=== PATIENT | male | born 1960 | race Caucasian/White ===

== ENCOUNTER → 2020-07-07 10:30 | Outpatient (CLI) | payer OTHER, SELFPAY ==
--- NOTE | 2020-07-07 10:33 | XR_ITS ---
PROCEDURE: XR FOOT RT MIN 3V CLINICAL INDICATION: RT FOOT PAIN COMPARISON: No exams were available for comparison FINDINGS: Metatarsus varus. Osteoarthritic changes at the 1st metatarsophalangeal joint. There is an old ununited fracture involving the distal shaft of the 4th metatarsal with 3 mm medial displacement of the distal fracture fragment. Osteoarthritic changes are present at the talonavicular and navicular cuneiform joint. Osteoarthritic changes also at the ankle. IMPRESSION: Osteoarthritic changes. 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
== END ==
PROVIDERS: PCP Family Medicine; Visit Provider Family Medicine
DX: M79.671 Pain in right foot (principal)
CPT/HCPCS: 73630

== ENCOUNTER → 2020-09-23 10:36 | Outpatient (CLI) | payer OTHER, SELFPAY ==
--- NOTE | 2020-09-23 10:40 | XR_ITS ---
PROCEDURE: XR FOOT WT BEARING RT 3V CLINICAL INDICATION: fracture of right fourth met follow up COMPARISON: CR XR FOOT RT MIN 3V from 07/07/2020 FINDINGS: Healing fractures present involving the distal shaft of the 4th metatarsal. Callus formation is developing at that site. There is minimal medial displacement of the distal fracture fragment by proximally 3 mm. There is an old 5th metatarsal fracture is well. There is mild metatarsus varus with osteoarthritic change at the 1st MTP joint, degenerative changes of the midfoot as before and at the ankle as before. There is mild pes planus. Osteoarthritic changes are present at the talonavicular and navicular cuneiform joint. IMPRESSION: Healing 4th metatarsal fracture with old 5th metatarsal fracture and degenerative changes Dictated by: Noe Flood MD 09/23/2020 11:33 Noe Flood MD in [facility] 09/23/2020 11:33
== END ==
PROVIDERS: PCP Family Medicine; Visit Provider Podiatrist
DX: S92.341A Displaced fracture of fourth metatarsal bone, right foot, initial encounter for closed fracture (principal)
CPT/HCPCS: 73630

== ENCOUNTER → 2020-10-21 09:34 | Outpatient (CLI) | payer OTHER, SELFPAY ==
--- NOTE | 2020-10-21 09:37 | XR_ITS ---
PROCEDURE: XR FOOT WT BEARING RT 3V CLINICAL INDICATION: Fracture follow up COMPARISON: CR XR FOOT RT MIN 3V from 07/07/2020 CR XR FOOT WT BEARING RT 3V from 09/23/2020 FINDINGS: There are healing fractures involving the 5th metatarsal proximally and the 4th metatarsal distally. Increasing callus formation noted since the previous exam. There is good alignment with only minimal lateral displacement of the distal fracture fragment at the 5th metatarsal. Osteoarthritic changes are present at the 1st MTP joint and tarsal bones as well as at the ankle joint with borderline pes planus. Other findings:None. IMPRESSION: Healing 4th and 5th metatarsal fractures with osteoarthritis of the foot Dictated by: Noe Flood MD 10/21/2020 13:03 Noe Flood MD in [facility] 10/21/2020 13:03
== END ==
PROVIDERS: PCP Family Medicine; Visit Provider Podiatrist
DX: S92.341K Displaced fracture of fourth metatarsal bone, right foot, subsequent encounter for fracture with nonunion (principal); S92.354A Nondisplaced fracture of fifth metatarsal bone, right foot, initial encounter for closed fracture
CPT/HCPCS: 73630

== ENCOUNTER → 2020-12-04 10:02 | Outpatient (CLI) | payer OTHER, SELFPAY ==
--- NOTE | 2020-12-04 10:08 | XR_ITS ---
PROCEDURE: XR FOOT WT BEARING RT 3V CLINICAL INDICATION: fracture follow up COMPARISON: CR XR FOOT RT MIN 3V from 07/07/2020 CR XR FOOT WT BEARING RT 3V from 09/23/2020 CR XR FOOT WT BEARING RT 3V from 10/21/2020 FINDINGS: Healing fractures are present involving the distal shaft of the 4th metatarsal and proximal shaft of the 5th metatarsal. There is mild lateral displacement the 5th metatarsal fracture distal fragment not significantly changed. Osteoarthritic changes are present at the 1st MTP joint, ankle, tail 0 navicular joint and navicular cuneiform joint. The fracture line at the 4th metatarsal appears somewhat less visible. IMPRESSION: Healing fractures of the 4th and 5th metatarsals as described above with osteoarthritic changes Dictated by: Noe Flood MD 12/04/2020 11:33 Noe Flood MD in [facility] 12/04/2020 11:33
== END ==
PROVIDERS: PCP Family Medicine; Visit Provider Podiatrist
DX: S92.354G Nondisplaced fracture of fifth metatarsal bone, right foot, subsequent encounter for fracture with delayed healing (principal); T14.8XXA Other injury of unspecified body region, initial encounter
CPT/HCPCS: 73630

== ENCOUNTER 2022-05-04 17:53 | Emergency (ER) | payer OTHER, SELFPAY ==
[2022-05-04] VITALS (8 sets, daily range): BP systolic 122–144; BP diastolic 84–92; PULSE 107–118; RESP 18–20; TEMP 36.6–37.2; O2SAT 94–99; BMI 28.7
--- NOTE | 2022-05-04 18:10 | CT_ITS ---
PROCEDURE INFORMATION: Exam: CT Abdomen And Pelvis With Contrast Exam date and time: 05/04/2022 8:17 PM Age: 61 years old Clinical indication: Nausea and vomiting and other: Diarrhea; Additional info: Concern for pyelo TECHNIQUE: Imaging protocol: Computed tomography of the abdomen and pelvis with contrast. Radiation optimization: All CT scans at this facility use at least one of these dose optimization techniques: automated exposure control; mA and/or kV adjustment per patient size (includes targeted exams where dose is matched to clinical indication); or iterative reconstruction. Contrast material: ISOVUE; Contrast volume: 75 ml; Contrast route: IV; COMPARISON: CR XR CHEST PORTABLE 05/04/2022 6:36 PM FINDINGS: Lungs: 1.3 cm circumscribed nodule right lung base with small central calcification favoring benign etiology. Liver: Normal. No mass. Gallbladder and bile ducts: Normal. No calcified stones. No ductal dilation. Pancreas: Unremarkable. Main pancreatic duct is not significantly dilated. Spleen: Normal. No splenomegaly. Adrenal glands: Normal. No mass. Kidneys and ureters: 3 cm exophytic cortical cyst midpole right kidney benign otherwise kidneys are unremarkable. No hydronephrosis or compelling evidence of pyelonephritis. Stomach and bowel: There is a moderate amount of stool throughout the large bowel likely reflecting some degree of constipation. Appendix: No evidence of acute appendicitis. Intraperitoneal space: Unremarkable. No free air. No significant fluid collection. Vasculature: Scattered atherosclerotic changes of the abdominal aorta and iliac vessels. No aortic aneurysm. Lymph nodes: Scattered small retroperitoneal and pelvic lymph nodes likely benign by size criteria. Urinary bladder: Unremarkable as visualized. Reproductive: Prostate gland is mildly enlarged. Bones/joints: Scattered degenerative changes of the lower thoracic and lumbar spine. No acute bony abnormalities. Soft tissues: Small fat containing umbilical hernia. IMPRESSION: 1. No acute findings within the abdomen or pelvis. 2. No compelling evidence of acute pyelonephritis. 3. Probable constipation. 4. 1.3 cm pulmonary nodule right lung base with a small central calcification favoring benign etiology. Recommend a follow-up CT chest in 3 months for continued surveillance. 5. Additional nonemergent findings as above.
--- NOTE | 2022-05-04 18:10 | XR_ITS ---
PROCEDURE INFORMATION: Exam: XR Chest Exam date and time: 05/04/2022 6:36 PM Age: 61 years old Clinical indication: Other: Abdominal pain TECHNIQUE: Imaging protocol: Radiologic exam of the chest. Views: 1 view. COMPARISON: CR CXR1VP XR chest portable 11/29/2017 10:27 PM FINDINGS: Lungs: Lung volumes are somewhat decreased which may be due to body habitus. No infiltrates. Pleural spaces: Unremarkable. No pleural effusion. No pneumothorax. Heart/Mediastinum: Unremarkable. No cardiomegaly. Bones/joints: Unremarkable. IMPRESSION: Decreased lung volumes otherwise negative chest.
[2022-05-04 18:20] LABS: Microscopic, Urine URINE MICROSCOPIC (MICROSCOPIC)
--- NOTE | 2022-05-04 18:22 | HMH.EDGENADL ---
Discharge Plan Disposition Patient Disposition: Home, Self-Care Prescriptions Prescriptions: No Action mupirocin 2 % ointment 1 applic TOPICAL TID Qty: 22 1RF metformin 500 mg tablet 500 mg PO lisinopril 5 mg tablet 5 mg PO Label Comments: TAKE 1 TABLET BY MOUTH ONCE DAILY amlodipine 5 mg tablet 5 mg PO Label Comments: TAKE 1 TABLET BY MOUTH ONCE DAILY lovastatin 20 mg tablet 20 mg PO ertugliflozin 5 mg tablet 5 mg PO Label Comments: TAKE 1 TABLET BY MOUTH ONCE DAILY IN THE MORNING ciclopirox 0.77 % cream 1 applic TOPICAL BID 30 Days Qty: 90 3RF glimepiride 4 tablet 4 mg PO DAILY allopurinol 300 tablet 300 mg PO DAILY dapagliflozin 10 tablet 10 mg PO DAILY colchicine 0.6 capsule 0.6 mg PO DAILY Referrals Follow up/Referrals: Willy Grissom MD [Primary Care Provider] - See instructions Clinical Impressions Clinical Impression: Abdominal pain Instructions Patient Instructions: DI for Nausea -- Adult Discharge ED Provider: Randal Abdul General Adult HPI <Randal Abdul MD - Last Filed: 05/04/22 20:03> General Chief complaint: Nausea/Vomiting/Diarrhea Stated complaint: Kidney pain stomach Time Seen by Provider: 05/04/22 18:15 Mode of Arrival: Ambulatory Source of Information: Patient and Spouse Limitations: No Limitations Description of Symptoms (Recalled from ER Triage Doc. by RN): pt to ed c/o mid abd pain and vomiting that started today. pt denies urinary symptoms or back pain. History of Present Illness HPI narrative: Patient is a 61-year-old male who has a past medical history of diabetes, renal failure who presents with concern for kidney issues . He says that today he started to get abdominal pain that he locates mainly around his umbilicus and thinks this is kidney pain because it is what it felt like previously. He says that he also feels nauseous and has been vomiting. He denies any diarrhea or constipation. Pain does not radiate from that location. Denies any back pain or flank pain. Denies any chest pain. Denies any shortness of breath. Denies any fever or chills. Related Data Home Medications Medication Instructions Recorded Confirmed allopurinol 300 mg tablet 300 mg PO DAILY gout 11/29/17 10/21/20 colchicine 0.6 mg capsule 0.6 mg PO DAILY gout 11/29/17 10/21/20 dapagliflozin 10 mg tablet 10 mg PO DAILY dm 11/29/17 10/21/20 glimepiride 4 mg tablet 4 mg PO DAILY dm 11/29/17 10/21/20 amlodipine 5 mg tablet 5 mg PO 07/29/20 10/21/20 ertugliflozin 5 mg tablet 5 mg PO 07/29/20 10/21/20 lisinopril 5 mg tablet 5 mg PO 07/29/20 10/21/20 lovastatin 20 mg tablet 20 mg PO 07/29/20 10/21/20 metformin 500 mg tablet 500 mg PO 07/29/20 10/21/20 Previous Rx's Medication Instructions Recorded ciclopirox 0.77 % topical cream 1 applic topical BID 30 days #90 08/02/20 grams mupirocin 2 % topical ointment 1 applic topical TID infection #22 09/23/20 grams Allergies Allergy/AdvReac Type Severity Reaction Status Date / Time No Known Allergies Allergy Verified 12/04/20 09:39 [facility] <Randal Abdul MD - Last Filed: 05/04/22 20:03> [facility] Disclaimer: The information contained in this section may have been updated after the patient was seen, as this information can be updated by other users. Social History Smoking Status: Never smoker alcohol intake: never current occupational status: employed Travel in the last 8 weeks: None <Randal Abdul MD - Last Filed: 05/04/22 20:03> ROS Obtained: Yes All systems reviewed & no additional complaints except as documented A 14 point review of system was obtained and otherwise negative except per HPI Physical Exam <Randal Abdul MD - Last Filed: 05/04/22 20:03> General General appearance: alert and in no apparent distress Head Head exam: atraumatic, normocephalic and normal inspection Eye Eye exam: Pr
[2022-05-04 18:44] LABS: Appearance,Urine CLEAR (Clear); Bilirubin,Urine Negative (Negative); Blood, Urine TRACE-I (Negative); Color,Urine YELLOW (Yellow); Glucose,Urine (UA) 3+ (Negative); Ketones,Urine Negative (Negative); Leukocyte Esterase,Urine Negative (Negative); Nitrate,Urine Negative (Negative); Protein,Urine TRACE (Negative); Specific Gravity, Urine 1.015 (1.005-1.030); Urobilinogen,Urine 0.2 EU/dl (0.2)
[2022-05-04 18:55] LABS: Barbiturates Screen,Urine Negative ng/ml (<200); Benzodiazepines Screen,Urine Negative ng/ml (<200)
[2022-05-04 18:56] LABS: Amphetamine/Metha Screen,Urine Negative ng/ml (<1000); Methadone Screen,Urine Negative ng/ml (<300)
[2022-05-04 18:57] LABS: Cannabinoid Screen,Urine Negative ng/ml (<50)
[2022-05-04 18:58] LABS: Cocaine Screen,Urine Negative ng/ml (<300); Opiate Screen,Urine Negative ng/ml (<300)
[2022-05-04 18:59] LABS: Phencyclidine Screen,Urine Negative ng/ml (<25)
[2022-05-04 19:00] LABS: VBG Base Excess -2.2 mmol/L (-2.4-2.3); VBG Oxygen Saturation 71.2 % (50-70); VBG PCO2 40.2 mmol/L (35-51); VBG PH 7.38 mmol/L (7.31-7.41); VBG PO2 35.6 mmol/L (28-40); VBG Total CO2 24.3 mmol/L (23-27)
[2022-05-04 19:15] LABS: Squamous Epithelial Cell,Urine Occasional #/hpf (0-5); WBC,Urine Occasional #/hpf (0-3)
[2022-05-04 19:30] LABS: Basophils # 0.1 K/mm3 (0-0.2); Basophils % 0.7 % (0.1-2.0); Eosinophils # 0.1 K/mm3 (0.0-0.4); Eosinophils % 0.7 % (0.1-12.0); Hematocrit 52.6 % (42.0-52.0); Hemoglobin 16.7 g/dL (14.1-18.0); Lymphocytes # 0.4 K/mm3 (0.7-4.5); Lymphocytes % 4.8 % (10-50); Mean Corpuscular HGB Conc 31.7 g/dL (31.8-35.4); Mean Corpuscular Hemoglobin 30.7 pg (27.0-31.2); Mean Corpuscular Volume 96.9 fl (80-94); Mean Platelet Volume 7.9 fl (7.4-10.4); Monocytes # 0.4 K/mm3 (0.1-1.0); Monocytes % 4.8 % (1.7-9.3); Neutrophils # 7.8 K/mm3 (1.8-7.8); Neutrophils % 88.9 % (37.0-80.0); Platelet Count 275 K/mm3 (142-424); Red Blood Count 5.43 M/mm3 (4.60-6.20); Red Cell Distribution Width 14.2 % (11.5-17.5); White Blood Count 8.7 K/mm3 (4.8-10.8)
[2022-05-04 19:37] LABS: MANUAL DIFFERENTIAL MANUAL DIFFERENTIAL (MANUAL DIFF)
[2022-05-04 19:43] LABS: Chloride 102 mmol/L (98-107); Potassium 4.7 mmoL/L (3.5-5.1); Sodium 142 mmol/L (136-145)
[2022-05-04 19:46] LABS: Alanine Aminotransferase 23 U/L (12-78); Albumin Level 4.8 g/dl (3.5-5.0); Albumin/Globulin Ratio 1.5 (1.1-1.8); Alkaline Phosphatase 138 U/L (38-126); Anion Gap 15.7 mEq/L (5-15); Aspartate Amino Transferase 33 U/L (17-59); Bilirubin,Total 0.7 mg/dl (0.2-1.3); Blood Urea Nitrogen 14 mg/dl (9-20); Calcium 9.3 mg/dl (8.4-10.2); Carbon Dioxide 29 mmol/L (22.0-30.0); Creatinine Clearance Estimated 85 mL/min (50-200); Estimated Glomerular Filt Rate 62 ml/min (>60); GFR (African American) 75 ML/MIN (>60); Globulin 3.3 g/dL (1.3-3.2); Glucose 150 mg/dl (74-100); Lipase 66 U/L (23-300); Total Protein,Serum 8.1 g/dl (6.3-8.2)
[2022-05-04 19:52] LABS: C-Reactive Protein 15.3 mg/L (0-4)
--- NOTE | 2022-05-04 19:54 | PC.NURSE ---
Radiology notified that labs results are back and MD waiting on CT scan to be completed.
[2022-05-04 20:00] LABS: Ethyl Alcohol < 10 mg/dl (0-10)
[2022-05-04 20:02] LABS: Erythrocyte Sedimentation Rate 6 mm/hr (0-20)
--- NOTE | 2022-05-04 20:08 | PC.NURSE ---
pt out of room to CT @ this time.
--- NOTE | 2022-05-04 20:15 | PC.NURSE ---
Maurisio with radiology called to ask for a nurse to assess patients IV prior to ct scan. Patient was c/o iv site pain with saline flush. I flushed the patients IV twice and was able to get adequate blood return and the IV flushed with no resistance or immediate sign of infiltration. I asked the patient where the iv was hurting but he wasnt able to tell me exactly where it was hurting .
--- NOTE | 2022-05-04 20:25 | PC.NURSE ---
pt back to room @ this time.
[2022-05-04 20:49] LABS: Lymphocytes % 10 % (10-50); Monocytes % 5 % (2-9); Neutrophils % 85 % (42-76); Platelet Estimate Normal; RBC Morphology Normal; Total Cells Counted 100
== END 2022-05-04 21:30 | disposition home or self-care (01) ==
PROVIDERS: Emergency Provider Student in an Organized Health Care Education/Training Program; PCP Family Medicine
DX: R10.9 Unspecified abdominal pain (principal); R11.2 Nausea with vomiting, unspecified; R19.7 Diarrhea, unspecified; E11.9 Type 2 diabetes mellitus without complications; N19 Unspecified kidney failure
CPT/HCPCS: 71045; 74177; 80053; 80305; 81001; 82803; 83690; 84145; 85007; 85025; 85651; 86140; J2405; Q9967

== ENCOUNTER 2022-05-06 18:34 | Inpatient (IN) | payer OTHER, SELFPAY ==
[2022-05-06] VITALS (8 sets, daily range): BP systolic 92–109; BP diastolic 46–67; PULSE 76–99; RESP 14–20; TEMP 36.6–36.7; O2SAT 92–100; BMI 28.7
--- NOTE | 2022-05-06 18:46 | XR_ITS ---
PROCEDURE INFORMATION: Exam: XR Chest Exam date and time: 05/06/2022 7:14 PM Age: 61 years old Clinical indication: Patient HX: Patient was seen her in er 2 days ago and had a chest x-ray and cat scan of abdomen. He was here for cough, nausea, vomiting, and diarrhea. Today he is having epigastric pain. TECHNIQUE: Imaging protocol: Radiologic exam of the chest. Views: 1 view. COMPARISON: CR XR CHEST PORTABLE 05/04/2022 6:36 PM FINDINGS: Lungs: Low lung volumes. Pulmonary vasculature grossly normal. Mild bandlike alveolar opacities in the lung bases probably atelectasis secondary to low lung volumes. Patchy basilar infiltrates or edema considered less likely. Pleural spaces: No pleural effusion. No pneumothorax. Heart/Mediastinum: Heart size normal. No tracheal/mediastinal shift. Bones/joints: No acute osseous abnormalities are identified. IMPRESSION: Low lung volumes with mild bandlike basilar densities likely representing subsegmental atelectasis. Patchy basilar edema or pneumonia considered less likely.
--- NOTE | 2022-05-06 18:58 | PC.NURSE ---
did US at [facility]
--- NOTE | 2022-05-06 19:16 | ECG_ITS ---
APPROVED REPORT Exam: Resting ECG HR:93 bpm ECG Measurements Heart Rate 93 AXES CO 160 P 23 QRSd 105 QRS -11 QT 332 T -21 QTc 383 Conclusion SINUS RHYTHM WITH MARKED SINUS ARRHYTHMIA Septal ST elevation is more pronounced than in 2018 - clinical correlation needed - may represent ischemic changes UNCONFIRMED REPORT Electronically signed by : Harsh Doss MD 05/07/2022 10:05:56
--- NOTE | 2022-05-06 19:26 | HMH.EDGENADL ---
Discharge Plan Disposition Patient Disposition: Still a Patient Chief Complaint: Nausea/Vomiting/Diarrhea Prescriptions Prescriptions: No Action mupirocin 2 % ointment 1 applic TOPICAL TID Qty: 22 1RF metformin 500 mg tablet 500 mg PO lisinopril 5 mg tablet 5 mg PO Label Comments: TAKE 1 TABLET BY MOUTH ONCE DAILY amlodipine 5 mg tablet 5 mg PO Label Comments: TAKE 1 TABLET BY MOUTH ONCE DAILY lovastatin 20 mg tablet 20 mg PO ertugliflozin 5 mg tablet 5 mg PO Label Comments: TAKE 1 TABLET BY MOUTH ONCE DAILY IN THE MORNING ciclopirox 0.77 % cream 1 applic TOPICAL BID 30 Days Qty: 90 3RF glimepiride 4 tablet 4 mg PO DAILY allopurinol 300 tablet 300 mg PO DAILY dapagliflozin 10 tablet 10 mg PO DAILY colchicine 0.6 capsule 0.6 mg PO DAILY Clinical Impressions Clinical Impression: STEMI (ST elevation myocardial infarction) Discharge ED Provider: Stewart Mittal General Adult HPI General Chief complaint: Nausea/Vomiting/Diarrhea Stated complaint: dizziness Time Seen by Provider: 05/06/22 18:38 Mode of Arrival: EMS Source of Information: Patient Limitations: No Limitations Description of Symptoms (Recalled from ER Triage Doc. by RN): c/o nausea and was lightheaded, dizziness and pale after. States that he has a gallbladder issue that he is getting further evaluation on Tuesday. States he ate chili and then his symptoms started. History of Present Illness HPI narrative: This is a 61-year-old male with history of diabetes, hypertension presenting with epigastric pain. Patient states that he had epigastric burning that was moderate in intensity and associated with 1 episode of vomiting. While patient was vomiting, he felt sweaty. Vomit was nonbloody, nonbilious. Epigastric pain radiated to back. He denies neurologic deficits, fevers, chills, cough, overt chest pain, shortness of breath, weakness, fatigue, or any other concerning history. Pain self aborted and on arrival, patient complaining only of upper back pain that does not radiate and is mild in intensity. Related Data Home Medications Medication Instructions Recorded Confirmed allopurinol 300 mg tablet 300 mg PO DAILY gout 11/29/17 10/21/20 colchicine 0.6 mg capsule 0.6 mg PO DAILY gout 11/29/17 10/21/20 dapagliflozin 10 mg tablet 10 mg PO DAILY dm 11/29/17 10/21/20 glimepiride 4 mg tablet 4 mg PO DAILY dm 11/29/17 10/21/20 amlodipine 5 mg tablet 5 mg PO 07/29/20 10/21/20 ertugliflozin 5 mg tablet 5 mg PO 07/29/20 10/21/20 lisinopril 5 mg tablet 5 mg PO 07/29/20 10/21/20 lovastatin 20 mg tablet 20 mg PO 07/29/20 10/21/20 metformin 500 mg tablet 500 mg PO 07/29/20 10/21/20 Previous Rx's Medication Instructions Recorded ciclopirox 0.77 % topical cream 1 applic topical BID 30 days #90 08/02/20 grams mupirocin 2 % topical ointment 1 applic topical TID infection #22 09/23/20 grams Allergies Allergy/AdvReac Type Severity Reaction Status Date / Time No Known Allergies Allergy Verified 12/04/20 09:39 [facility] Disclaimer: The information contained in this section may have been updated after the patient was seen, as this information can be updated by other users. Social History Smoking Status: Never smoker alcohol intake: never current occupational status: employed Travel in the last 8 weeks: None ROS Obtained: Yes All systems reviewed & no additional complaints except as documented Physical Exam General General appearance: alert and in no apparent distress Head Head exam: atraumatic, normocephalic and normal inspection Eye Eye exam: Present normal appearance, PERRL and EOMI ENT ENT exam: Present normal exam, normal oropharynx, mucous membranes moist, TM's normal bilaterally and normal external ear exam Neck Neck exam: Present normal inspection, full ROM and trachea midline; Absent meningismus or lymphadenopathy Chest Chest
[2022-05-06 20:00] LABS: Basophils # 0.1 K/mm3 (0-0.2); Basophils % 0.8 % (0.1-2.0); Eosinophils % 0.2 % (0.1-12.0); Hematocrit 48.1 % (42.0-52.0); Hemoglobin 15.4 g/dL (14.1-18.0); Lymphocytes # 0.5 K/mm3 (0.7-4.5); Lymphocytes % 6.4 % (10-50); Mean Corpuscular HGB Conc 32.1 g/dL (31.8-35.4); Mean Corpuscular Volume 96.5 fl (80-94); Mean Platelet Volume 7.8 fl (7.4-10.4); Monocytes # 0.5 K/mm3 (0.1-1.0); Monocytes % 5.9 % (1.7-9.3); Neutrophils # 6.7 K/mm3 (1.8-7.8); Neutrophils % 86.7 % (37.0-80.0); Platelet Count 202 K/mm3 (142-424); Red Blood Count 4.98 M/mm3 (4.60-6.20); Red Cell Distribution Width 14.3 % (11.5-17.5); White Blood Count 7.8 K/mm3 (4.8-10.8)
[2022-05-06 20:01] LABS: Alanine Aminotransferase 14 U/L (12-78); Albumin Level 3.9 g/dl (3.5-5.0); Albumin/Globulin Ratio 1.5 (1.1-1.8); Alkaline Phosphatase 94 U/L (38-126); Anion Gap 12.9 mEq/L (5-15); Aspartate Amino Transferase 31 U/L (17-59); Bilirubin,Total 0.6 mg/dl (0.2-1.3); Blood Urea Nitrogen 22 mg/dl (9-20); Calcium 8.4 mg/dl (8.4-10.2); Carbon Dioxide 30 mmol/L (22.0-30.0); Chloride 97 mmol/L (98-107); Creatinine Clearance Estimated 60 mL/min (50-200); Estimated Glomerular Filt Rate 41 ml/min (>60); GFR (African American) 50 ML/MIN (>60); Globulin 2.6 g/dL (1.3-3.2); Glucose 147 mg/dl (74-100); Lipase 49 U/L (23-300); Potassium 4.9 mmoL/L (3.5-5.1); Sodium 135 mmol/L (136-145); Total Protein,Serum 6.5 g/dl (6.3-8.2)
--- NOTE | 2022-05-06 20:03 | ECG_ITS ---
APPROVED REPORT Exam: Resting ECG HR:90 bpm ECG Measurements Heart Rate 90 AXES WY 163 P 26 QRSd 107 QRS -16 QT 346 T -25 QTc 394 Conclusion SINUS RHYTHM WITH MARKED SINUS ARRHYTHMIA SEPTAL MYOCARDIAL INFARCTION , POSSIBLY ACUTE [40+ ms Q WAVE IN V1/V2] PROBABLE INFERIOR MYOCARDIAL INFARCTION , OF INDETERMINATE AGE [35 ms Q WAVE IN II/aVF] ACUTE WA UNCONFIRMED REPORT Electronically signed by : Harsh Doss MD 05/07/2022 10:04:25
[2022-05-06 20:05] LABS: MANUAL DIFFERENTIAL MANUAL DIFFERENTIAL (MANUAL DIFF)
--- NOTE | 2022-05-06 20:06 | IR_ITS ---
APPROVED REPORT Patient Location: [facility] [employer] Director: SHAREE Galicia RT (R) PROCEDURES Left heart catheterization Left ventriculogram Selective coronary angiogram Drug-eluting stent deployment to the proximal circumflex artery Drug-eluting stent deployment to the first obtuse marginal artery Drug-eluting stent deployment to the ostial proximal mid and distal dominant right coronary artery Drug-eluting stent deployment to the posterior descending artery INDICATION Acute inferior and lateral ST elevation myocardial infarction, Coronary artery disease Informed consent was obtained prior to the procedure. COMPLICATIONS None Estimated Blood Loss: Less than 10 ML TECHNIQUE One percent lidocaine used to anesthetize the right anterior aspect of the wrist. The right radial artery was accessed via the Seldinger technique. A 6 Yoruba sheath was placed in the right radial artery. 2.5 mg of verapamil, 800 mcg of nitroglycerin, 1mg Lidocaine and 5000 U Heparin were given through the arterial sheath. The papa catheter was also used to perform left heart catheterization, left ventriculogram and selective coronary angiogram. At the end the diagnostic angiogram therapeutic heparin was administered giving a therapeutic ACT and a guide catheter was placed in the left main artery followed by a Choice PT extra-support wire being placed on the circumflex artery. Multiple 2 mm and 2.5 mm balloons were used to open the heavily calcified obtuse marginal artery and circumflex artery. After the vessel was predilated a guide liner was required in order to put a 2.5 x 38 mm resolute Wale stent was deployed at 20 deana in the circumflex artery. An additional 2 mm x 12 mm resolute [place] stent was then placed distal to the first stent and deployed at 20 deana. An additional 2 mm x 30 mm resolute [place] stent was then placed into the first obtuse marginal artery and deployed at 15 deana the balloon was brought back and deployed at 24 deana within 3 remainder of the 2 mm stents as well as at the 2.75 mm and 2 mm junction. REBECA 0 flow was present at the beginning of the procedure with REBECA-3 flow at the end of the procedure. Following this the guide catheter was placed into the right coronary artery where a Choice PT extra-support wire was placed into the posterior descending artery. A guide liner was used for support and a 2.5 balloon was dilated up and down the right coronary artery. Following this a 2.75 x 38 mm resolute Wale stent was placed in the ostial proximal right coronary artery and deployed at 20 deana. This was noticeably undersized therefore an additional 3 mm x 38 mm resolute Wale stent was placed distal to the for stent yet still overlapping and deployed at 20 deana. The balloon was brought back and deployed at 24 deana through the ostial proximal segment as well as the connection between the 2 stents. The wire was then placed into the posterior descending artery where a 2 mm balloon was used to predilate the stenosis. Following this a 2.25 x 38 mm resolute [place] stent was placed into the posterior descending artery at 15 deana reducing the stenosis to 0%. The balloon was brought back and deployed at 24 deana in the proximal portion of the 2.25 mm stent as well as in the distal 3 mm stent. Following this the apparatus was removed. REBECA 0 flow was present in the posterior descending artery with REBECA-3 flow at the end of the procedure. REBECA I flow was present in the right coronary artery at the beginning of the procedure with REBECA-3 flow at the end of the procedure. At the end the procedure the apparatus was removed the sheath was removed and hemostasis was achieved using TR banding patient was transferred to the postop [facility]
[2022-05-06 20:16] LABS: Troponin I 1.24 ng/ml (0.00-0.034)
--- NOTE | 2022-05-06 20:18 | PC.NURSE ---
[facility]urwinder contacted and accepted pt for admit @2015
[2022-05-06 20:20] LABS: Lymphocytes % 6 % (10-50); Monocytes % 3 % (2-9); Neutrophils % 91 % (42-76); Platelet Estimate Normal; Total Cells Counted 100
[2022-05-06 20:21] LABS: Macrocytosis 1+
--- NOTE | 2022-05-06 20:21 | PC.NURSE ---
trop critical called 1.24
[2022-05-06 21:53] LABS: CATHL Activated Clotting Time 228 SEC (74-125)
[2022-05-06 21:54] LABS: CATHL Activated Clotting Time 229 SEC (74-125)
--- NOTE | 2022-05-06 22:11 | PC.NURSE ---
Pt arrived to floor via stretcher from medical laboratory technicians @ [phone].
[2022-05-07] VITALS (15 sets, daily range): BP systolic 112–136; BP diastolic 74–88; PULSE 70–100; RESP 14–20; TEMP 36.3–36.9; O2SAT 94–100; BMI 28.7; BMI 28.4
--- NOTE | 2022-05-07 | CA_ITS ---
APPROVED REPORT EXAM: Comprehensive 2D, Doppler, and color-flow Echocardiogram Curbing Stonecutter: Tia Velazquez CRT Ht: 5 ft 10 in Wt: 200lbs BSA: 2.09 BP: 106/65 mmHg Indications: Covid +, Chest Pain, Shortness of Breath, STEMI, Diabetes, Hyperlipidemia, ef on cath 15-20% 05/06/22, 5 stents 2D Dimensions LVOT 2.09 cm (M/F) 1.5-2.5 LA Volume 43.30 mL M-Mode Dimensions RVDd 3.27 cm (0.9-2.6) LA Diam 3.73 cm (1.9-4.0) LVDd 4.64 cm (3.5-5.7) Ao Diam 4.07 cm (2.0-3.7) LVDs 3.88 cm (3.5-5.7) IVSd 2.32 cm (0.6-1.1) PWd 1.25 cm (0.6-1.1) EF (Teich) 34.40% FS 16.40% EDV (Teich) 99.30 mL TAPSE 1.86 (<1.7) ESV (Teich) 65.10 mL LV Diastology E Decel Time 153.00 (160-240 msec) E/A Ratio 0.72 MED E' 4.10 (< 7 cm/sec) MED A' 8.80 cm/s E'/MED E' Ratio 20.22 (>14) LAT E' 7.70 (<10 cm/sec) LAT A' 10.00 cm/s E/LAT E' Ratio 10.77 (>14) Aortic Valve AO Peak GR. 9.50 mmHg Mitral Valve MV A Velocity 114.00 (40-130 cm/s) E/A Ratio 0.72 MV Decel. Time 153.00 (160-240 ms) Pulmonary Valve PV Peak Velocity 117.00 (50-150 cm/s) Tricuspid Valve TR P. Velocity 279.00 cm/s RAP Estimate 10.00 mmHg RVSP 41.10 mmHg Left Ventricle Left atrium is mildly enlarged, left ventricle is normal size mild concentric left ventricular hypertrophy, estimated ejection fraction 30%, there is marked hypokinesis involving the basal septum, inferior wall and posterolateral wall. Grade 1 diastolic dysfunction seen without tissue Doppler evidence of raise left atrial pressure. Right Ventricle Right atrium and right ventricle are mildly enlarged with normal contractility. Aortic Valve Aortic valve is thickened and calcified without aortic stenosis or aortic insufficiency. Mitral Valve Mitral valve is grossly normal, there is trace mitral regurgitation. Tricuspid Valve Tricuspid valve is grossly normal, there is trace tricuspid regurgitation, tricuspid regurgitation jet velocity is inadequate for calculation of the right ventricular systolic pressure. Pulmonic Valve Pulmonic valve is poorly visualized. Great Vessels Aortic root is normal size. Inferior vena cava is normal size with normal inspiratory collapse. Pericardium No significant pericardial effusion noted. Conclusion 1. Mild biatrial enlargement, normal left ventricular size, mild concentric left ventricular hypertrophy, estimated ejection fraction 30% with multiple segmental wall motion abnormalities described above, grade 1 diastolic dysfunction seen without tissue Doppler evidence of raise left atrial pressure. 2. Mildly enlarged right ventricle with normal contractility. 3. Trace mitral and tricuspid regurgitation. 4. No significant pericardial effusion noted. 5. Inferior vena cava is poorly visualized. Electronically signed by : Kenneth Haque MD 05/07/2022 12:53:45
[2022-05-07 02:18] LABS: Influenza A, PCR Not Detected (NotDetected); Influenza B, PCR Not Detected (NotDetected)
[2022-05-07 02:45] LABS: Coronavirus 19, PCR Detected (NotDetected)
--- NOTE | 2022-05-07 07:48 | HMH.PHAINT1 ---
Pharmacy Intervention Comments: MEDICATION RECONCILIATION COMPLETED ON PATIENT USING EXTERNAL FILL HISTORY FROM PHARMACY. -JUAN FRANCO, GEOFFREYD
--- NOTE | 2022-05-07 08:39 | EXP.HP ---
History of Present Illness *Admission Date: 05/06/22 *Reason for visit:: chest pain *History of present illness: This is a 61-year-old male with history of diabetes, hypertension presenting with epigastric pain.? Patient states that he had epigastric burning that was moderate in intensity and associated with 1 episode of vomiting.? While patient was vomiting, he felt sweaty.? Vomit was nonbloody, nonbilious.? Epigastric pain radiated to back.? He denies neurologic deficits, fevers, chills, cough, overt chest pain, shortness of breath, weakness, fatigue, or any other concerning history.? Pain self aborted and on arrival, patient complaining only of upper back pain that does not radiate and is mild in intensity.? On arrival, patient hemodynamically stable, alert, oriented x4, appropriate, GCS 15, moving all extremities spontaneously, pupils equal and reactive to light.? Patient pale, diaphoretic, tired appearing.? Nontender abdomen without Werner's or McBurney signs.? Cardiopulmonary exam within normal limits.? Differential includes cholelithiasis, cholecystitis, pancreatitis, ACS, AL, pneumothorax, pneumonia, gastritis, PUD, among others. Patient was given 325 mg aspirin, 180 Brilinta, 7500 units heparin bolus for symptomatic management and correction of underlying abnormalities.? Workup independently intrepreted and significant for nonactionable CBC.? CMP with CRISTEL creatinine 1.7, BUN 22.? Troponin 1.24 initially, delta pending at time of admission.? Imaging independently interpreted and demonstrates no acute cardiopulmonary or airspace disease.? Personal interpretation of EKG shows [address] elevations in lead V2 with T wave inversions in V5, V6, 3, aVF.? Does not acutely meet STEMI voltage criteria.? Repeat EKG 30 minutes later with 2 mm elevations in lead V2 with ST deviations and leads previously concerning for T wave inversions consistent with acute STEMI. On reevaluation, patient remains with burning epigastric pain and back pain, is pale and diaphoretic. Given patient presentation, workup, history, this most likely represents acute STEMI.? Cardiology consulted and case was discussed at length.? Inpatient medicine team consulted and case was discussed at length.? Patient put on cardiac medications and taken to [employer] Sales Representative emergently.? Because patient high risk for clinical decompensation, deemed appropriate for inpatient admission.? Results were relayed to patient who voiced understanding and patient was agreeable to inpatient admission and management.? Patient was admitted to the hospital for further definitive management, and remained hemodynamically stable during entire stay in the emergency department. (above as per ER physician) Also to note, patient's covid test was positive. He states he has felt poorly since Tuesday with cough, congestion, body aches, vomiting, and diarrhea. [facility] Disclaimer: The information contained in this section may have been updated after the patient was seen, as this information can be updated by other users. Medical History (Updated 05/07/22 @ 10:18 by Willy Grissom MD) Diabetes mellitus, type 2 Gout Hyperlipidemia Hypertension Surgical History (Updated 05/07/22 @ 09:26 by SUDARSHAN Hernandez) History of tonsillectomy Family History (Updated 05/07/22 @ 09:22 by SUDARSHAN Hernandez) Diabetes Coronary artery disease Hyperlipidemia Social History (Updated 05/06/22 @ 22:45 by Mena Atkinson RN) Smoking Status: Never smoker alcohol intake: never current occupational status: employed Travel in the last 8 weeks: None Review of Systems Constitutional Constitutional: Reports body ache(s), Reports chills, Denies fever(s), Reports headache(s), Reports poor appetite, Reports malaise and Reports weakness Eyes Eyes: Denies blurry vision and Denies diplopia ENT Ears, Nose, Mouth, and Throat: Reports headache(s), Reports nasal congestion and Denies sore throat *Cardiovascular Cardiovascular: Denies chest pain
--- NOTE | 2022-05-07 11:48 | EXP.CARD.CON ---
History of Present Illness History of Present Illness Consult date: 05/07/22 Requesting physician: Willy Grissom Consult reason: chest pain Chief complaint: CP, back pain, vomiting Additional Medical History:: 1. Diabetes mellitus, treated for many years 2. Hypertension, treated for many years 3. Hyperlipidemia, treated for many years 4. History of gout 5. STEMI, 05/06/2022 A. LHC, 05/06/2022, multiple MARTHA to circumflex/OM and RCA/PDA. Ischemic cardiomyopathy with ejection fraction of about 20% B. Echocardiogram 05/07/2022 EF 30% 6. COVID, 05/06/2022 History of present illness: 61-year-old male with history as noted above presented for epigastric burning sensation and vomiting. Work-up in the ER initially focused on GI symptoms but with repeat EKG patient was noted to have ST elevation of 2 mm consistent with acute STEMI. Home Health Care Social Worker was activated and patient was taken to the cardiac Home Health Care Social Worker where he received multiple drug-eluting stents to both the circumflex system and the right coronary artery system. Severely reduced ejection fraction estimated at 15-20% on left ventriculogram. Echocardiogram today shows EF 30%. Patient denies any chest pain, pressure or tightness at this time. He is resting well at the time of my exam on no oxygen. He was found to be COVID-positive yesterday. Longtime diabetic, hypertensive and hyperlipidemic patient. Denies history of tobacco use. [facility] Disclaimer: The information contained in this section may have been updated after the patient was seen, as this information can be updated by other users. Medical History (Updated 05/07/22 @ 10:18 by Willy Grissom MD) Diabetes mellitus, type 2 Gout Hyperlipidemia Hypertension Surgical History (Updated 05/07/22 @ 09:26 by SUDARSHAN Hernandez) History of tonsillectomy Family History (Updated 05/07/22 @ 09:22 by SUADRSHAN Hernandez) Diabetes Coronary artery disease Hyperlipidemia Social History (Updated 05/06/22 @ 22:45 by Mena Atkinson RN) Smoking Status: Never smoker alcohol intake: never current occupational status: employed Travel in the last 8 weeks: None Review of Systems Review of Systems Review of systems:: pertinent systems reviewed and negative unless documented below Constitutional Constitutional: Reports headache(s) and Reports weakness ENT Ears, Nose, Mouth, and Throat: Reports headache(s) *Cardiovascular Cardiovascular: Reports chest pain, Reports chest pain at rest and Reports dyspnea on exertion *Respiratory Respiratory: Reports cough and Reports dyspnea on exertion *Gastrointestinal Gastrointestinal: Reports vomiting *Neurologic Neurologic: Reports headache(s) and Reports weakness Exam Data for Last 24 hours Vital signs and Labs for Last 24 Hours: Temp Pulse Resp BP Pulse Ox 98.5 F 97 H 18 136/88 98 05/07/22 08:00 05/07/22 08:00 05/07/22 08:00 05/07/22 08:00 05/07/22 08:00 Laboratory Results - last 24 hr 05/06/22 19:32: WBC 7.8, RBC 4.98, Hgb 15.4, Hct 48.1, MCV 96.5 H, MCH 31.0, MCHC 32.1, RDW 14.3, Plt Count 202 D, MPV 7.8, Neut % (Auto) 86.7 H, Lymph % (Auto) 6.4 L, [place] % (Auto) 5.9, Eos % (Auto) 0.2, Baso % (Auto) 0.8, Neut # (Auto) 6.7, Lymph # (Auto) 0.5 L, [place] # (Auto) 0.5, Eos # (Auto) 0.0, Baso # (Auto) 0.1, Total Counted 100, Neutrophils % (Manual) 91 H, Lymphocytes % (Manual) 6 L, Monocytes % (Manual) 3, Platelet Estimate Normal, Macrocytosis 1+ 05/06/22 19:32: Sodium 135 L, Potassium 4.9, Chloride 97 L, Carbon Dioxide 30, Anion Gap 12.9, BUN 22 H D, Creatinine 1.70 H D, Estimated Creat Clear 60, Estimated GFR 41 L, Est GFR ( Amer) 50 L D, Glucose 147 H, Calcium 8.4, Total Bilirubin 0.6, AST 31, ALT 14 D, Alkaline Phosphatase 94, Troponin I 1.24 H, Total Protein 6.5, Albumin 3.9, Globulin 2.6, Albumin/Globulin Ratio 1.5, Lipase 49 05/06/22 22:04: Activated Clotting Time 228 H* 05/07/22 02:10: SARS-CoV-2 (PCR) Detected A, Influenza A Untype (PCR) Not detected, Infl
[2022-05-07 12:30] LABS: Alanine Aminotransferase 15 U/L (12-78); Albumin Level 3.6 g/dl (3.5-5.0); Albumin/Globulin Ratio 1.4 (1.1-1.8); Alkaline Phosphatase 88 U/L (38-126); Anion Gap 10.7 mEq/L (5-15); Aspartate Amino Transferase 40 U/L (17-59); Bilirubin,Total 0.5 mg/dl (0.2-1.3); Blood Urea Nitrogen 22 mg/dl (9-20); Calcium 8.4 mg/dl (8.4-10.2); Carbon Dioxide 27 mmol/L (22.0-30.0); Chloride 101 mmol/L (98-107); Chol/HDL Ratio 5.6 (1-3.5); Cholesterol 150 mg/dl (140-200); Creatinine Clearance Estimated 85 mL/min (50-200); Estimated Glomerular Filt Rate 62 ml/min (>60); GFR (African American) 75 ML/MIN (>60); Globulin 2.6 g/dL (1.3-3.2); Glucose 139 mg/dl (74-100); HDL Cholesterol 27 mg/dl (40-60); Potassium 3.7 mmoL/L (3.5-5.1); Sodium 135 mmol/L (136-145); Total Protein,Serum 6.2 g/dl (6.3-8.2); Triglycerides 171 mg/dl (30-150); VLDL Cholesterol 34 mg/dL (0-40)
[2022-05-07 12:42] LABS: Direct LDL Cholesterol 85.45 mg/dL (100-129)
--- NOTE | 2022-05-07 17:05 | PC.NURSE ---
pt has rested t/o shift, telemetry has shown NSR, no complaints of chest pain or SOA, has complained of nausea one time and was treated per JUN, remains on room air, pt bathed this shift and linens changed
[2022-05-07 17:21] LABS: POC Glucose,Bedside 149 (70-110)
[2022-05-07 20:26] LABS: POC Glucose,Bedside 289 (70-110)
[2022-05-08] VITALS: BP 132/78; PULSE 125; PULSE 72; RESP 18; TEMP 36.7; O2SAT 98
[2022-05-08 04:00] VITALS: BP 125/67; PULSE 87; PULSE 94; RESP 20; TEMP 36.9; O2SAT 94; BMI 28.3
--- NOTE | 2022-05-08 05:09 | INFXCTL.NOTE ---
PATIENT RESTING IN BED. NO COMPLAINTS OF PAIN OR DISCOMFORT. SINUS RHYTHM ON TELEMETRY. REMAINS IN AIRBORN/CONTACT PRECAUTIONS DUE TO COVID +.
[2022-05-08 05:40] LABS: POC Glucose,Bedside 86 (70-110)
[2022-05-08 08:00] VITALS: BP 128/78; PULSE 100; PULSE 95; RESP 18; TEMP 36.9; O2SAT 99
--- NOTE | 2022-05-08 10:40 | EXP.ACUTE.PN ---
Subjective *Date: 05/08/22 *Time: 10:40 Interval history: Patient with no new complaints today. Medical Exam Vital signs and Labs for Last 24 Hours: Vital Signs Temp Pulse Pulse Resp BP Pulse Ox 05/08/22 08:00 98.4 F 95 H 18 128/78 99 05/08/22 04:00 87 05/08/22 04:00 98.4 F 94 H 20 125/67 94 L 05/08/22 00:00 125 H 05/08/22 00:00 98.1 F 72 18 132/78 98 05/07/22 23:38 91 H 05/07/22 20:00 98.3 F 92 H 20 130/76 97 05/07/22 20:00 95 05/07/22 12:00 86 05/07/22 16:00 90 05/07/22 16:00 97.4 F L 91 H 20 117/84 95 05/07/22 12:33 97.5 F L 92 H 18 133/86 96 Intake and Output 05/07/22 05/08/22 05/08/22 23:59 07:59 15:59 Intake Total 240 / 720 Output Total 1025 / 3725 1000 / 1450 450 / 1450 Balance -785 / -3005 -1000 / -1450 -450 / -1450 Intake: Intake, Oral Amount 240 / 720 Output: Output, Urine Amount 1025 / 3725 1000 / 1450 450 / 1450 Other: Number of Voids 1 Number of Unmeasured Voids 0 Weight 197 lb 8.547 oz Patient Weight 05/08/22 23:59 Weight 197 lb 8.547 oz Laboratory Results - last 24 hr 05/07/22 12:00: Sodium 135 L, Potassium 3.7 D, Chloride 101, Carbon Dioxide 27, Anion Gap 10.7, BUN 22 H, Creatinine 1.20 D, Estimated Creat Clear 85, Estimated GFR 62, Est GFR ( Amer) 75 D, Glucose 139 H, Calcium 8.4, Total Bilirubin 0.5, AST 40 D, ALT 15, Alkaline Phosphatase 88, Total Protein 6.2 L, Albumin 3.6, Globulin 2.6, Albumin/Globulin Ratio 1.4, Triglycerides 171 H, Cholesterol 150, LDL Cholesterol Direct 85.45 L, VLDL Cholesterol 34, HDL Cholesterol 27 L, Cholesterol/HDL Ratio 5.6 H 05/07/22 16:44: POC Glucose 149 H 05/07/22 20:05: POC Glucose 289 H 05/08/22 05:33: POC Glucose 86 I & O for Labs for Last 24 Hours: Intake & Output 05/05/22 05/06/22 05/07/22 05/08/22 23:59 23:59 23:59 23:59 Intake Total 720 / 720 Output Total 3125 / 3725 1450 / 1450 Balance -2405 / -3005 -1450 / -1450 Weight 200 lb 198 lb 6.656 oz 197 lb 8.547 oz Constitutional: Present no acute distress Respiratory: Present normal respiratory effort Cardiac: Present Reg Rate and Rhythm GI: Present normal bowel sounds; Absent tenderness Extremities: Present normal inspection and full ROM Skin: Present intact; Absent erythema Neuro: Present Grossly Intact and moves all extremities Assessment and Plan *Assessment and plan (1) STEMI (ST elevation myocardial infarction): Status: Acute Category: Medical Code(s): I21.3 - ST elevation (STEMI) myocardial infarction of unspecified site (2) COVID-19: Status: Acute Category: Medical Code(s): U07.1 - COVID-19 (3) Acute kidney injury: Status: Acute Category: Medical Code(s): N17.9 - Acute kidney failure, unspecified (4) Abdominal pain: Status: Acute Category: Medical Code(s): R10.9 - Unspecified abdominal pain (5) Coronary artery disease: Status: Acute Category: Medical Code(s): I25.10 - Atherosclerotic heart disease of [place] coronary artery without angina pectoris (6) S/P coronary artery stent placement: Status: Acute Category: Surgical Code(s): Z95.5 - Presence of coronary angioplasty implant and graft (7) Diabetes mellitus: Status: Chronic Qualifiers: Diabetes mellitus type: type 2 Diabetes mellitus group home insulin use: without long term care administrator use Diabetes mellitus complication status: without complication Qualified Code(s): E11.9 - Type 2 diabetes mellitus without complications Category: Medical Code(s): E11.9 - Type 2 diabetes mellitus without complications (8) Hypertension: Status: Chronic Category: Medical Code(s): I10 - Essential (primary) hypertension (9) Hyperlipidemia: Status: Chronic Category: Medical Code(s): E78.5 - Hyperlipidemia, unspecified (10) Acute CHF (co
[2022-05-08 12:00] VITALS: BP 128/85; PULSE 65; PULSE 83; RESP 18; TEMP 36.9; O2SAT 97
[2022-05-08 12:54] LABS: POC Glucose,Bedside 160 (70-110)
[2022-05-08 16:00] VITALS: BP 121/86; PULSE 80; PULSE 83; RESP 20; TEMP 36.4; O2SAT 95
--- NOTE | 2022-05-08 17:35 | PC.NURSE ---
Pt has done well this shift. Pt has used urinal, urine is clear and yellow. No BM noted this shift. Pt ambulated independently. Lovenox added for VTE this shift. No other acute changes or complaints.
[2022-05-08 17:38] LABS: POC Glucose,Bedside 306 (70-110)
[2022-05-08 20:00] VITALS: BP 119/81; PULSE 80; PULSE 85; RESP 20; TEMP 36.6; O2SAT 98
[2022-05-08 20:48] LABS: POC Glucose,Bedside 137 (70-110)
[2022-05-09] VITALS (10 sets, daily range): BP systolic 105–141; BP diastolic 69–92; PULSE 69–99; RESP 17–20; TEMP 36.5–37.2; O2SAT 97–99; BMI 28.0
--- NOTE | 2022-05-09 04:48 | PC.NURSE ---
PATIENT HAS RESTED WELL. NO C/O PAIN OR SOA. PERSISTANT DRY COUGH. 02 AT 2LNC USED THROUGHOUT THE NIGHT. REMAINS IN AIRBORNE AND CONTACT ISOLATION FOR COVID.
[2022-05-09 05:39] LABS: POC Glucose,Bedside 135 (70-110)
--- NOTE | 2022-05-09 08:09 | EXP.ACUTE.PN ---
Subjective *Date: 05/09/22 *Time: 08:09 Interval history: Pt with no new complaints today, had to start supplemental oxygen yesterday. Medical Exam Vital signs and Labs for Last 24 Hours: Vital Signs Temp Pulse Pulse Resp BP Pulse Ox 05/09/22 07:30 97.7 F 92 H 18 105/78 L 99 05/09/22 04:00 97.9 F 90 20 130/85 97 05/09/22 04:00 88 05/08/22 20:00 80 05/09/22 00:00 99 H 05/08/22 20:00 98 05/09/22 00:00 98.1 F 69 20 141/88 H 99 05/08/22 20:00 97.9 F 85 20 119/81 98 05/08/22 16:00 97.6 F 83 20 121/86 95 05/08/22 16:00 80 05/08/22 12:00 83 05/08/22 12:00 98.5 F 65 18 128/85 97 Intake and Output 05/08/22 05/09/22 05/09/22 23:59 07:59 15:59 Intake Total 480 / 1320 300 / 300 Output Total 850 / 2925 500 / 500 Balance -370 / -1605 -200 / -200 Intake: Intake, Oral Amount 480 / 1320 300 / 300 Output: Output, Urine Amount 850 / 2925 500 / 500 Other: Number of Unmeasured Voids 0 0 Weight 195 lb 15.855 oz Patient Weight 05/09/22 23:59 Weight 195 lb 15.855 oz Laboratory Results - last 24 hr 05/08/22 12:45: POC Glucose 160 H 05/08/22 16:04: POC Glucose 306 H* 05/08/22 20:41: POC Glucose 137 H 05/09/22 05:31: POC Glucose 135 H I & O for Labs for Last 24 Hours: Intake & Output 05/06/22 05/07/22 05/08/22 05/09/22 23:59 23:59 23:59 23:59 Intake Total 720 / 720 1200 / 1320 300 / 300 Output Total 3125 / 3725 2925 / 2925 500 / 500 Balance -2405 / -3005 -1725 / -1605 -200 / -200 Weight 200 lb 198 lb 6.656 oz 197 lb 8.547 oz 195 lb 15.855 oz Constitutional: Present no acute distress Respiratory: Present normal respiratory effort Cardiac: Present Reg Rate and Rhythm GI: Present normal bowel sounds; Absent tenderness Extremities: Present normal inspection and full ROM Skin: Present intact; Absent erythema Neuro: Present Grossly Intact and moves all extremities Assessment and Plan *Assessment and plan (1) STEMI (ST elevation myocardial infarction): Status: Acute Category: Medical Code(s): I21.3 - ST elevation (STEMI) myocardial infarction of unspecified site (2) COVID-19: Status: Acute Category: Medical Code(s): U07.1 - COVID-19 (3) Acute kidney injury: Status: Acute Category: Medical Code(s): N17.9 - Acute kidney failure, unspecified (4) Abdominal pain: Status: Acute Category: Medical Code(s): R10.9 - Unspecified abdominal pain (5) Coronary artery disease: Status: Acute Category: Medical Code(s): I25.10 - Atherosclerotic heart disease of [place] coronary artery without angina pectoris (6) S/P coronary artery stent placement: Status: Acute Category: Surgical Code(s): Z95.5 - Presence of coronary angioplasty implant and graft (7) Diabetes mellitus: Status: Chronic Qualifiers: Diabetes mellitus type: type 2 Diabetes mellitus [facility] insulin use: without salvage determiner use Diabetes mellitus complication status: without complication Qualified Code(s): E11.9 - Type 2 diabetes mellitus without complications Category: Medical Code(s): E11.9 - Type 2 diabetes mellitus without complications (8) Hypertension: Status: Chronic Category: Medical Code(s): I10 - Essential (primary) hypertension (9) Hyperlipidemia: Status: Chronic Category: Medical Code(s): E78.5 - Hyperlipidemia, unspecified (10) Acute CHF (congestive heart failure): Status: Acute Category: Medical Code(s): I50.9 - Heart failure, unspecified Plan Plan to wean supplemental oxygen down today, recheck labs tomorrow. Life vest is in his room now.
[2022-05-09 11:40] LABS: POC Glucose,Bedside 179 (70-110)
[2022-05-09 16:52] LABS: POC Glucose,Bedside 157 (70-110)
--- NOTE | 2022-05-09 18:02 | PC.NURSE ---
No acute changes. Oxygen weaned to room air, VS stable. Lung sounds clear.
[2022-05-09 20:10] LABS: POC Glucose,Bedside 244 (70-110)
[2022-05-10] VITALS: BP 139/87; PULSE 90; PULSE 93; RESP 18; TEMP 36.9; O2SAT 97
[2022-05-10 04:00] VITALS: BP 121/86; PULSE 80; PULSE 94; RESP 18; TEMP 36.5; O2SAT 96; BMI 28.2
[2022-05-10 05:31] LABS: POC Glucose,Bedside 107 (70-110)
--- NOTE | 2022-05-10 06:37 | PC.NURSE ---
NO ACUTE CHANGES. REMAINS ON ROOM AIR. VSS. REMAINS AFEBRILE. LUNGS CLEAR.
[2022-05-10 06:49] LABS: Basophils % 0.3 % (0.1-2.0); Eosinophils # 0.2 K/mm3 (0.0-0.4); Eosinophils % 2.5 % (0.1-12.0); Lymphocytes # 1.3 K/mm3 (0.7-4.5); Lymphocytes % 17.7 % (10-50); Mean Corpuscular HGB Conc 33.4 g/dL (31.8-35.4); Mean Corpuscular Hemoglobin 31.1 pg (27.0-31.2); Mean Corpuscular Volume 92.9 fl (80-94); Mean Platelet Volume 7.8 fl (7.4-10.4); Monocytes # 0.4 K/mm3 (0.1-1.0); Monocytes % 5.3 % (1.7-9.3); Neutrophils # 5.4 K/mm3 (1.8-7.8); Neutrophils % 74.1 % (37.0-80.0); Platelet Count 243 K/mm3 (142-424); Red Blood Count 4.84 M/mm3 (4.60-6.20); Red Cell Distribution Width 13.7 % (11.5-17.5); White Blood Count 7.2 K/mm3 (4.8-10.8)
[2022-05-10 07:17] LABS: Anion Gap 12.9 mEq/L (5-15); Blood Urea Nitrogen 27 mg/dl (9-20); Calcium 8.3 mg/dl (8.4-10.2); Carbon Dioxide 26 mmol/L (22.0-30.0); Chloride 103 mmol/L (98-107); Creatinine Clearance Estimated 84 mL/min (50-200); Estimated Glomerular Filt Rate 62 ml/min (>60); GFR (African American) 75 ML/MIN (>60); Glucose 96 mg/dl (74-100); Potassium 3.9 mmoL/L (3.5-5.1); Sodium 138 mmol/L (136-145)
[2022-05-10 07:29] VITALS: BP 140/72; PULSE 90; RESP 18; TEMP 37.4; O2SAT 100
[2022-05-10 08:00] VITALS: PULSE 97
--- NOTE | 2022-05-10 08:14 | EXP.PN ---
Subjective *Date: 05/10/22 *Time: 09:06 Interval history: Patient is concerned about his left hand. States the machinist instructor is not as good. He has continuous O2 sat monitor on the middle finger and a dressing around the hand. He states he continues to cough and is short of breath. He states he has not been out of bed but then states he sat in a chair. He states bowels have not moved. He is voiding QS. Exam Data for Last 24 hours Vital signs and Labs for Last 24 Hours: Temp Pulse Resp BP Pulse Ox 99.4 F 90 18 140/72 100 05/10/22 07:29 05/10/22 07:29 05/10/22 07:29 05/10/22 07:29 05/10/22 07:29 Laboratory Results - last 24 hr 05/09/22 11:32: POC Glucose 179 H 05/09/22 16:41: POC Glucose 157 H 05/09/22 20:03: POC Glucose 244 H 05/10/22 05:24: POC Glucose 107 05/10/22 06:33: WBC 7.2, RBC 4.84, Hgb 15.0, Hct 45.0, MCV 92.9, MCH 31.1, MCHC 33.4, RDW 13.7, Plt Count 243, MPV 7.8, Neut % (Auto) 74.1, Lymph % (Auto) 17.7, [place] % (Auto) 5.3, Eos % (Auto) 2.5, Baso % (Auto) 0.3, Neut # (Auto) 5.4, Lymph # (Auto) 1.3, [place] # (Auto) 0.4, Eos # (Auto) 0.2, Baso # (Auto) 0.0 05/10/22 06:33: Sodium 138, Potassium 3.9, Chloride 103, Carbon Dioxide 26, Anion Gap 12.9, BUN 27 H, Creatinine 1.20, Estimated Creat Clear 84, Estimated GFR 62, Est GFR ( Amer) 75, Glucose 96, Calcium 8.3 L I & O for Last 24 hours: Intake & Output 05/07/22 05/08/22 05/09/22 05/10/22 11:59 11:59 11:59 11:59 Intake Total 240 / 240 960 / 960 1020 / 1020 900 / 900 Output Total 1325 / 1325 3250 / 3250 2425 / 2425 2150 / 2150 Balance -1085 / -1085 -2290 / -2290 -1405 / -1405 -1250 / -1250 Weight 198 lb 6.656 oz 197 lb 8.547 oz 195 lb 15.855 oz 197 lb 1 oz Constitutional Constitutional: no acute distress Comments: Appears comfortable. *Routine Respiratory Exam Respiratory: Present CTA bilaterally (Anteriorly and posteriorly) *Routine Cardiovascular Exam Cardiovascular: Present RRR (Monitor showing sinus rhythm with a rate of 100.) *Routine Abdominal Exam Abdominal: Present soft and normoactive bowel sounds; Absent tenderness or distended *Routine Extremities Exam Extremities: Absent edema or calf tenderness Comments: Good movement of all extremities. Satisfactory grasp of the left hand. Moves all fingers without difficulty. Head to touch with the left hand normal. Normal radial pulse. No hand edema. *Routine Neurological Exam Neurological: Present alert Assessment and Plan *Assessment and plan (1) STEMI (ST elevation myocardial infarction): Status: Acute Category: Medical Code(s): I21.3 - ST elevation (STEMI) myocardial infarction of unspecified site (2) COVID-19: Status: Acute Category: Medical Code(s): U07.1 - COVID-19 (3) Acute kidney injury: Status: Acute Category: Medical Code(s): N17.9 - Acute kidney failure, unspecified (4) Abdominal pain: Status: Acute Category: Medical Code(s): R10.9 - Unspecified abdominal pain (5) Coronary artery disease: Status: Acute Category: Medical Code(s): I25.10 - Atherosclerotic heart disease of [place] coronary artery without angina pectoris (6) S/P coronary artery stent placement: Status: Acute Category: Surgical Code(s): Z95.5 - Presence of coronary angioplasty implant and graft (7) Diabetes mellitus: Status: Chronic Qualifiers: Diabetes mellitus complication status: without complication Diabetes mellitus shelter insulin use: without adjunct faculty for medical terminology use Diabetes mellitus type: type 2 Qualified Code(s): E11.9 - Type 2 diabetes mellitus without complications Category: Medical Code(s): E11.9 - Type 2 diabetes mellitus without complications (8) Hypertension: Status: Chronic Category: Medical Code(s): I10 - Essential (primary) hypertension (9) Hyperlipidemia: Status: Chronic Category: Medical Code(s): E78.5 - Hy
--- NOTE | 2022-05-10 09:33 | CARE MANAGER ---
Acute Coronary Syndrome (ACS) Episode Day 1, One: 2MN Trans CRITICAL, One: STEMI
--- NOTE | 2022-05-10 10:47 | EXP.CARD.PN ---
Subjective Subjective Date: 05/10/22 Time: 10:47 Principal diagnosis: STEMI Interval history: 61-year-old white male in bed in no acute distress. He is ready to go home LifeVest is in the room. Exam Data for Last 24 hours Vital signs and Labs for Last 24 Hours: Temp Pulse Resp BP Pulse Ox 99.4 F 97 H 18 140/72 100 05/10/22 07:29 05/10/22 08:00 05/10/22 07:29 05/10/22 07:29 05/10/22 07:29 Laboratory Results - last 24 hr 05/09/22 11:32: POC Glucose 179 H 05/09/22 16:41: POC Glucose 157 H 05/09/22 20:03: POC Glucose 244 H 05/10/22 05:24: POC Glucose 107 05/10/22 06:33: WBC 7.2, RBC 4.84, Hgb 15.0, Hct 45.0, MCV 92.9, MCH 31.1, MCHC 33.4, RDW 13.7, Plt Count 243, MPV 7.8, Neut % (Auto) 74.1, Lymph % (Auto) 17.7, [place] % (Auto) 5.3, Eos % (Auto) 2.5, Baso % (Auto) 0.3, Neut # (Auto) 5.4, Lymph # (Auto) 1.3, [place] # (Auto) 0.4, Eos # (Auto) 0.2, Baso # (Auto) 0.0 05/10/22 06:33: Sodium 138, Potassium 3.9, Chloride 103, Carbon Dioxide 26, Anion Gap 12.9, BUN 27 H, Creatinine 1.20, Estimated Creat Clear 84, Estimated GFR 62, Est GFR ( Amer) 75, Glucose 96, Calcium 8.3 L I & O for Last 24 hours: Intake & Output 05/07/22 05/08/22 05/09/22 05/10/22 11:59 11:59 11:59 11:59 Intake Total 240 / 240 960 / 960 1020 / 1020 900 / 900 Output Total 1325 / 1525 3250 / 3875 2425 / 2425 2150 / 2150 Balance -1085 / -1285 -2290 / -2915 -1405 / -1405 -1250 / -1250 Weight 198 lb 6.656 oz 197 lb 8.547 oz 195 lb 15.855 oz 197 lb 1 oz Constitutional Constitutional: no acute distress *Routine Respiratory Exam Respiratory: Present CTA bilaterally *Routine Cardiovascular Exam Cardiovascular: Present RRR *Routine Extremities Exam Extremities: Absent cyanosis, clubbing or edema *Routine Neurological Exam Neurological: Present alert and oriented X3 Progress Note: A&P Assessment and plan (1) STEMI (ST elevation myocardial infarction): Status: Acute (2) COVID-19: Status: Acute (3) Acute kidney injury: Status: Acute (4) Abdominal pain: Status: Acute (5) Coronary artery disease: Status: Acute (6) S/P coronary artery stent placement: Status: Acute (7) Diabetes mellitus: Status: Chronic (8) Hypertension: Status: Chronic (9) Hyperlipidemia: Status: Chronic (10) Acute CHF (congestive heart failure): Status: Acute Assessment and Plan Assessment and Plan for All Diagnoses:: 1.? Acute STEMI -Multiple MARTHA to circumflex and RCA arteries -DAPT with aspirin and Brilinta 2.? Ischemic cardiomyopathy with echo EF 30% -LifeVest in place -Entresto and coreg started 3.? COVID, defer to Dr. Grissom 4.? Hypertension, controlled 5.? Hyperlipidemia, -Atorvastatin started Stable from cardiac standpoint for discharge home. Follow-up in our office in 1 week. Encouraged the LifeVest use is much as possible. Home medication recommendations from cardiac standpoint: Aspirin 81 mg daily Atorvastatin 40 mg daily Ticagrelor 90 mg twice daily Entresto 24/ twice daily Carvedilol 3.125 mg twice daily
[2022-05-10 10:53] LABS: POC Glucose,Bedside 135 (70-110)
[2022-05-10 10:59] VITALS: BP 127/80; PULSE 93; RESP 19; TEMP 36.5; O2SAT 96
[2022-05-10 12:00] VITALS: PULSE 95
--- NOTE | 2022-05-10 14:42 | HMH.PHACL ---
PHA Director Medicaid Discharge Med Setter Off: Sunday Talbot has received discharge medication counseling on the following medications: aspirin, Brilinta, carvedilol, Entresto, and lovastatin as well as continued home medications. Overviewed indications, possible adverse effects, and mitigation strategies for each. Instructed patient to STOP lisinopril. Patient verbalized understanding of the information provided and had no questions or concerns at this time. -Peggy Anderson, PharmD Candidate 2022
--- NOTE | 2022-05-12 08:49 | EXP.DC.SUM ---
General Admission date:: 05/06/22 Discharge date: 05/10/22 HPI HPI HPI: This is a 61-year-old male with history of diabetes, hypertension presenting with epigastric pain.? Patient states that he had epigastric burning that was moderate in intensity and associated with 1 episode of vomiting.? While patient was vomiting, he felt sweaty.? Vomit was nonbloody, nonbilious.? Epigastric pain radiated to back.? He denies neurologic deficits, fevers, chills, cough, overt chest pain, shortness of breath, weakness, fatigue, or any other concerning history.? Pain self aborted and on arrival, patient complaining only of upper back pain that does not radiate and is mild in intensity.? On arrival, patient hemodynamically stable, alert, oriented x4, appropriate, GCS 15, moving all extremities spontaneously, pupils equal and reactive to light.? Patient pale, diaphoretic, tired appearing.? Nontender abdomen without Werner's or McBurney signs.? Cardiopulmonary exam within normal limits.? Differential includes cholelithiasis, cholecystitis, pancreatitis, ACS, SC, pneumothorax, pneumonia, gastritis, PUD, among others. Patient was given 325 mg aspirin, 180 Brilinta, 7500 units heparin bolus for symptomatic management and correction of underlying abnormalities.? Workup independently intrepreted and significant for nonactionable CBC.? CMP with CRISTEL creatinine 1.7, BUN 22.? Troponin 1.24 initially, delta pending at time of admission.? Imaging independently interpreted and demonstrates no acute cardiopulmonary or airspace disease.? Personal interpretation of EKG shows [address] elevations in lead V2 with T wave inversions in V5, V6, 3, aVF.? Does not acutely meet STEMI voltage criteria.? Repeat EKG 30 minutes later with 2 mm elevations in lead V2 with ST deviations and leads previously concerning for T wave inversions consistent with acute STEMI. On reevaluation, patient remains with burning epigastric pain and back pain, is pale and diaphoretic. Given patient presentation, workup, history, this most likely represents acute STEMI.? Cardiology consulted and case was discussed at length.? Inpatient medicine team consulted and case was discussed at length.? Patient put on cardiac medications and taken to [facility] emergently.? Because patient high risk for clinical decompensation, deemed appropriate for inpatient admission.? Results were relayed to patient who voiced understanding and patient was agreeable to inpatient admission and management.? Patient was admitted to the hospital for further definitive management, and remained hemodynamically stable during entire stay in the emergency department. (above as per ER physician) Also to note, patient's covid test was positive. He states he has felt poorly since Tuesday with cough, congestion, body aches, vomiting, and diarrhea. Hospital Course Hospital Course Hospital Course: The patient's heart cath showed critical two-vessel coronary artery disease and he received multiple stents. It showed severe left ventricular dilatation with severe global hypokinesis and a severely reduced ejection fraction of 15 to 20%. Cardiology started him on Brilinta twice daily plus an aspirin 81 mg daily. They wanted to avoid IV fluids due to his severe left ventricular dysfunction. 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 If his creatinine improved, they wanted to start Entresto first and then carvedilol the following day. They felt he would require LifeVest prior to discharge home. The patient was started on Entresto on 05/07/2022. He had a repeat echo and his EF was 30%. He did have to start supplemental oxygen on 05/08/2022. A LifeVest was ordered for the patient. By 05/10/2022, he was concerned about his left hand stating his runner man was not as good as it had been. He had a continuous oxygen saturation monitor on the middle finger and a dressing around the hand, which was removed. His nasal can
--- NOTE | 2022-05-12 13:05 | CARE MANAGER ---
Attempted post-discharge phone interview, no answer.
--- NOTE | 2022-05-14 15:01 | CARE MANAGER ---
Attempted to call multiple times, unable to reach patient at phone number provided.
== END 2022-05-10 15:00 | disposition home or self-care (01) | DRG 246 ==
LOC: ER 20:13 → CATHLAB 20:19 → 2ND 20:40
PROVIDERS: Physician Assistant; Admitting Provider Family Medicine; Emergency Provider Emergency Medicine; PCP Family Medicine; Referring Provider Internal Medicine; Visit Provider Family Medicine
PROC: 027337Z Dilation of Coronary Artery, Four or More Arteries with Four or More Drug-eluting Intraluminal Devices, Percutaneous Approach (ICD-10-PCS; principal; 2022-05-06 20:00)
DX: I21.19 ST elevation (STEMI) myocardial infarction involving other coronary artery of inferior wall (principal); U07.1 COVID-19; N17.9 Acute kidney failure, unspecified; E11.9 Type 2 diabetes mellitus without complications; M10.9 Gout, unspecified; E78.5 Hyperlipidemia, unspecified; I25.5 Ischemic cardiomyopathy; I11.0 Hypertensive heart disease with heart failure; Z79.84 Long term (current) use of oral hypoglycemic drugs; Z95.5 Presence of coronary angioplasty implant and graft; I25.10 Atherosclerotic heart disease of native coronary artery without angina pectoris
CPT/HCPCS: 36415; 71045; 74177; 80048; 80053; 80061; 80305; 81001; 82803; 82962; 83690; 84145; 84484; 85007; 85025; 85347; 85651; 86140; 92928; 92929; 92941; 93005; 93306; 93458; 96361; 96374; 99152; 99285; 99291; C1725; C1769; C1874; C1876; C9600; C9601; C9606; C9803; J1644; J2405; Q9967; U0003; U0005

== ENCOUNTER → 2022-07-06 09:46 | Outpatient (CLI) | payer OTHER, SELFPAY ==
[2022-07-06 10:39] LABS: Basophils # 0.1 K/mm3 (0-0.2); Basophils % 0.7 % (0.1-2.0); Eosinophils # 0.2 K/mm3 (0.0-0.4); Eosinophils % 2.6 % (0.1-12.0); Hematocrit 47.9 % (42.0-52.0); Hemoglobin 15.1 g/dL (14.1-18.0); Lymphocytes # 1.2 K/mm3 (0.7-4.5); Lymphocytes % 17.9 % (10-50); Mean Corpuscular HGB Conc 31.5 g/dL (31.8-35.4); Mean Corpuscular Hemoglobin 30.6 pg (27.0-31.2); Mean Corpuscular Volume 97.2 fl (80-94); Mean Platelet Volume 7.3 fl (7.4-10.4); Monocytes # 0.4 K/mm3 (0.1-1.0); Monocytes % 5.3 % (1.7-9.3); Neutrophils % 73.6 % (37.0-80.0); Platelet Count 244 K/mm3 (142-424); Red Blood Count 4.93 M/mm3 (4.60-6.20); Red Cell Distribution Width 15.1 % (11.5-17.5); White Blood Count 6.8 K/mm3 (4.8-10.8)
[2022-07-06 10:57] LABS: Hemoglobin A1C 5.9 % (4.0-6.0)
[2022-07-06 11:08] LABS: Anion Gap 12.1 mEq/L (5-15); Blood Urea Nitrogen 16 mg/dl (9-20); Calcium 8.9 mg/dl (8.4-10.2); Carbon Dioxide 29 mmol/L (22.0-30.0); Chloride 101 mmol/L (98-107); Estimated Glomerular Filt Rate 69 ml/min (>60); GFR (African American) 83 ML/MIN (>60); Glucose 101 mg/dl (74-100); Potassium 4.1 mmoL/L (3.5-5.1); Sodium 138 mmol/L (136-145)
== END ==
PROVIDERS: PCP Family Medicine; Visit Provider Family Medicine
DX: I10 Essential (primary) hypertension (principal); E11.9 Type 2 diabetes mellitus without complications; Z79.84 Long term (current) use of oral hypoglycemic drugs
CPT/HCPCS: 36415; 80048; 83036; 85025

== ENCOUNTER → 2022-08-06 09:17 | Outpatient (CLI) | payer OTHER, SELFPAY | PROVIDERS: PCP Family Medicine; Visit Provider Physician Assistant | DX: I50.21 Acute systolic (congestive) heart failure (principal) | CPT/HCPCS: 93308 ==

== ENCOUNTER 2022-10-10 17:03 | Inpatient (IN) | payer OTHER, SELFPAY ==
[2022-10-10 17:04] VITALS: BP 140/88; PULSE 110; RESP 16; TEMP 36.8; O2SAT 100; BMI 28.7
--- NOTE | 2022-10-10 17:07 | HMH.EDGENADL ---
Discharge Plan Disposition Patient Disposition: Admitted Condition: Fair Prescriptions Prescriptions: No Action carvedilol [Coreg] 6.25 mg tablet 6.25 mg PO BID Qty: 60 2RF Rx Instructions: must administer with a meal/food amlodipine 5 mg tablet 5 mg PO DAILY metformin 500 mg tablet 500 mg PO BID lovastatin 20 mg tablet 20 mg PO DAILY ertugliflozin 5 mg tablet 5 mg PO DAILY Label Comments: TAKE 1 TABLET BY MOUTH ONCE DAILY IN THE MORNING Entresto 49-51 mg tablet 1 tab PO BID Qty: 60 2RF glimepiride 4 tablet 2 mg PO DAILY allopurinol 300 tablet 300 mg PO DAILY aspirin 81 mg Tablet,Delayed Release (Dr/Ec) 81 mg PO DAILY Qty: 30 5RF Brilinta 90 mg Tablet 90 mg PO BID Qty: 60 5RF Referrals Follow up/Referrals: Willy Grissom MD [Primary Care Provider] - See instructions Clinical Impressions Clinical Impression: Cystitis, SIRS (systemic inflammatory response syndrome), CRISTEL (acute kidney injury) Discharge ED Provider: Marina Toledo Adult HPI General Chief complaint: Urogenital-Male Stated complaint: urinary trouble Time Seen by Provider: 10/10/22 17:06 Mode of Arrival: Ambulatory Source of Information: Patient Limitations: No Limitations History of Present Illness HPI narrative: 61-year-old male presenting to the emergency department dysuria. Symptoms started 2 to 3 days ago. He feels like he needs to urinate frequently. Throughout the day today, was having pain and burning with urination. Possibly saw some blood. He has minimal abdominal pain. No flank pain. Has had chills. Denies fevers. Was on antibiotics earlier this year for urinary tract infection. No antibiotics in the last 2 or 3 months. No pain in the genitals. No discharge. No medications prior to arrival. Related Data Home Medications Medication Instructions Recorded Confirmed allopurinol 300 mg tablet 300 mg PO DAILY gout 11/29/17 08/23/22 glimepiride 4 mg tablet 2 mg PO DAILY Diabetes 11/29/17 08/23/22 ertugliflozin 5 mg tablet 5 mg PO DAILY Diabetes 07/29/20 08/23/22 lovastatin 20 mg tablet 20 mg PO DAILY Cholesterol 07/29/20 08/23/22 metformin 500 mg tablet 500 mg PO BID Diabetes 07/29/20 08/23/22 amlodipine 5 mg tablet 5 mg PO DAILY 08/23/22 08/23/22 Previous Rx's Medication Instructions Recorded aspirin 81 mg tablet,delayed 81 mg PO DAILY #30 tabs 05/10/22 release ticagrelor 90 mg tablet (Brilinta) 90 mg PO BID #60 tabs 05/10/22 sacubitril 49 mg-valsartan 51 mg 1 tab PO BID #60 tabs 06/02/22 tablet (Entresto) carvedilol 6.25 mg tablet (Coreg) 6.25 mg PO BID #60 tabs 06/28/22 Allergies Allergy/AdvReac Type Severity Reaction Status Date / Time No Known Allergies Allergy Verified 08/23/22 08:51 [facility] Disclaimer: The information contained in this section may have been updated after the patient was seen, as this information can be updated by other users. Medical History Abrasion of foot, right Acquired metatarsus varus Blister of foot without infection Coronary artery disease Diabetes mellitus, type 2 Fracture of fourth metatarsal bone of right foot Gout Hyperlipidemia Hypertension Immunization due Ischemic cardiomyopathy LV dysfunction Onychodystrophy Onychomycosis Vaccine counseling Surgical History History of cardiac cath History of tonsillectomy Hx of heart artery stent x5 Family History Other Coronary artery disease Diabetes Hyperlipidemia Social History Smoking Status: Never smoker alcohol intake: never current occupational status: employed Travel in the last 8 weeks: None ROS Obtained: Yes All systems reviewed & no additional complaints except as documented Constitutional Constit
[2022-10-10 17:15] LABS: Microscopic, Urine URINE MICROSCOPIC (MICROSCOPIC)
[2022-10-10 17:16] LABS: Appearance,Urine CLOUDY (Clear); Bilirubin,Urine Negative (Negative); Blood, Urine 3+ (Negative); Color,Urine DK YELLOW (Yellow); Glucose,Urine (UA) 2+ (Negative); Ketones,Urine TRACE (Negative); Leukocyte Esterase,Urine 1+ (Negative); Nitrate,Urine POSITIVE (Negative); PH,Urine 5.5 (5.0-8.5); Protein,Urine 2+ (Negative); Specific Gravity, Urine 1.025 (1.005-1.030)
[2022-10-10 17:29] LABS: Bacteria,Urine 2+ /lpf; RBC,Urine 20-50 #/hpf (0-3); WBC,Urine 20-50 #/hpf (0-3)
[2022-10-10 17:30] VITALS: BP 129/76; PULSE 103; RESP 18; O2SAT 100
--- NOTE | 2022-10-10 17:37 | CT_ITS ---
PROCEDURE INFORMATION: Exam: CT Abdomen And Pelvis Without Contrast Exam date and time: 10/10/2022 5:53 PM Age: 61 years old Clinical indication: Abdominal pain; Generalized; Additional info: Lower abd pain, stone suspected TECHNIQUE: Imaging protocol: Computed tomography of the abdomen and pelvis without contrast. Radiation optimization: All CT scans at this facility use at least one of these dose optimization techniques: automated exposure control; mA and/or kV adjustment per patient size (includes targeted exams where dose is matched to clinical indication); or iterative reconstruction. REPORTING DATA: Count of CT and Cardiac NM exams in prior 12 months: This patient has received [address] and 0 known cardiac nuclear medicine studies in the 12 months prior to the current study. COMPARISON: CT ABDOMEN PELVIS W CON 05/04/2022 8:17 PM FINDINGS: Liver: Normal. No mass. Gallbladder and bile ducts: Normal. No calcified stones. No ductal dilation. Pancreas: Normal. No ductal dilation. Spleen: Normal. No splenomegaly. Adrenal glands: Normal. No mass. Kidneys and ureters: Stable right exophytic renal cyst. Stomach and bowel: Moderate to moderately large colonic stool. Nonobstructive bowel gas pattern. Appendix: No evidence of appendicitis. Intraperitoneal space: Unremarkable. No free air. No significant fluid collection. Vasculature: Atherosclerotic calcification of aortoiliac arteries. Lymph nodes: Reactive retroperitoneal/mesenteric lymph nodes without lymphadenopathy. Urinary bladder: Unremarkable as visualized. Reproductive: Unremarkable as visualized. Bones/joints: Degenerative changes at multiple levels of thoracolumbar spine. Vertebral body heights grossly preserved. Cortices intact. Soft tissues: Stable fat containing periumbilical hernia. IMPRESSION: 1. No acute findings identified. 2. Moderate to moderately large colonic stool burden.
--- NOTE | 2022-10-10 17:49 | PC.NURSE ---
pt to radiology
--- NOTE | 2022-10-10 17:52 | PC.NURSE ---
C/o headache. MD notified. Orders being received.
[2022-10-10 17:57] LABS: Basophils % 0.1 % (0.1-2.0); Eosinophils % 0.1 % (0.1-12.0); Hematocrit 47.4 % (42.0-52.0); Hemoglobin 15.5 g/dL (14.1-18.0); Lymphocytes # 0.5 K/mm3 (0.7-4.5); Lymphocytes % 2.7 % (10-50); Mean Corpuscular HGB Conc 32.7 g/dL (31.8-35.4); Mean Corpuscular Hemoglobin 31.1 pg (27.0-31.2); Monocytes # 0.9 K/mm3 (0.1-1.0); Neutrophils # 15.9 K/mm3 (1.8-7.8); Neutrophils % 92.1 % (37.0-80.0); Platelet Count 204 K/mm3 (142-424); Red Blood Count 4.99 M/mm3 (4.60-6.20); Red Cell Distribution Width 14.4 % (11.5-17.5); White Blood Count 17.2 K/mm3 (4.8-10.8)
[2022-10-10 18:01] LABS: MANUAL DIFFERENTIAL MANUAL DIFFERENTIAL (MANUAL DIFF)
--- NOTE | 2022-10-10 18:01 | PC.NURSE ---
Episode of vomiting while in CT. MD notified. VO Zofran 4mg IVP.
[2022-10-10 18:05] LABS: Sodium 138 mmol/L (136-145)
[2022-10-10 18:06] LABS: Chloride 100 mmol/L (98-107)
[2022-10-10 18:08] LABS: Alanine Aminotransferase 26 U/L (12-78); Albumin Level 4.3 g/dl (3.5-5.0); Albumin/Globulin Ratio 1.5 (1.1-1.8); Alkaline Phosphatase 92 U/L (38-126); Aspartate Amino Transferase 32 U/L (17-59); Bilirubin,Total 1.2 mg/dl (0.2-1.3); Blood Urea Nitrogen 17 mg/dl (9-20); Carbon Dioxide 25 mmol/L (22.0-30.0); Creatinine Clearance Estimated 73 mL/min (50-200); Estimated Glomerular Filt Rate 52 ml/min (>60); GFR (African American) 63 ML/MIN (>60); Globulin 2.8 g/dL (1.3-3.2); Glucose 159 mg/dl (74-100); Lactic Acid 2.2 mmol/L (0.7-2.1); Total Protein,Serum 7.1 g/dl (6.3-8.2)
[2022-10-10 18:12] LABS: Lymphocytes % 8 % (10-50); Monocytes % 1 % (2-9); Neutrophils % 91 % (42-76); Platelet Estimate Normal; RBC Morphology Normal; Total Cells Counted 100
[2022-10-10 18:29] LABS: Procalcitonin 0.302 ng/mL (0.0-2.0)
[2022-10-10 18:53] LABS: Coronavirus 19, PCR Not Detected (NotDetected); Influenza A, PCR Not Detected (NotDetected); Influenza B, PCR Not Detected (NotDetected)
[2022-10-10 19:00] VITALS: BP 102/69; PULSE 85; O2SAT 98
--- NOTE | 2022-10-10 19:24 | PC.NURSE ---
Dr. Ray no
--- NOTE | 2022-10-10 19:28 | PC.NURSE ---
Dr. Toledo speaking with Dr. Bell
--- NOTE | 2022-10-10 19:32 | PC.NURSE ---
Registration notified of admission. Pt assigned to room 210 for UTI. Ray Grissom. OBS
--- NOTE | 2022-10-10 19:35 | PC.NURSE ---
Rounded on pt. No needs voiced at this time.
[2022-10-10 20:00] VITALS: BP 122/58; PULSE 94; RESP 18; TEMP 36.9; O2SAT 90; BMI 28.0
[2022-10-10 20:26] VITALS: BP 112/71; PULSE 73; RESP 19; TEMP 36.8; O2SAT 98
--- NOTE | 2022-10-10 20:38 | PC.NURSE ---
pt arrived to floor at this time
[2022-10-10 21:53] LABS: Reflex Lactic Add Lactic Reflex
[2022-10-10 22:29] LABS: Lactic Acid Follow Up (RFLX 1) 2.7 mmol/L (0.7-2.1)
--- NOTE | 2022-10-11 | US_ITS ---
FINAL REPORT CLINICAL HISTORY: rt ankle abrasion, DM, HTN, hyperlipidemia, gout, noncompliance, CAD, hx STEMI COMPARISON: None FINDINGS: ANKLE-BRACHIAL PRESSURE INDICES Pressure indices are as follows: RIGHT LOWER EXTREMITY: Ankle-brachial pressure index: 0.7 Comments: Diminished pulses with abnormal waveforms LEFT LOWER EXTREMITY: Ankle-brachial pressure index: 1.4 Comments: Normal IMPRESSION: Findings concerning for significant arterial occlusive disease on the right. Consider anatomic imaging. No evidence of significant obstructive peripheral vascular disease of the left lower extremity. Reviewed, Interpreted and Dictated by Hermes Zepeda MD Transcribed by Isaura Billy Authenticated and [facility]
[2022-10-11 00:15] LABS: Reflex Lactic (2 hrs) Add Lactic Reflex
[2022-10-11 00:45] LABS: Lactic Acid Follow up (RFLX 2) 1.4 mmol/L (0.7-2.1)
[2022-10-11 04:00] VITALS: BP 125/73; PULSE 102; RESP 18; TEMP 37.1; O2SAT 90; BMI 28.0
[2022-10-11 06:19] LABS: Basophils % 0.1 % (0.1-2.0); Eosinophils % 0.1 % (0.1-12.0); Mean Corpuscular Volume 94.2 fl (80-94)
[2022-10-11 06:21] LABS: Chloride 105 mmol/L (98-107); Sodium 139 mmol/L (136-145)
[2022-10-11 06:24] LABS: Blood Urea Nitrogen 20 mg/dl (9-20); Calcium 7.9 mg/dl (8.4-10.2); Carbon Dioxide 24 mmol/L (22.0-30.0); Creatinine Clearance Estimated 77 mL/min (50-200); Estimated Glomerular Filt Rate 57 ml/min (>60); GFR (African American) 68 ML/MIN (>60); Glucose 61 mg/dl (74-100)
[2022-10-11 06:25] LABS: Anion Gap 13.9 mEq/L (5-15); Potassium 3.9 mmoL/L (3.5-5.1)
--- NOTE | 2022-10-11 06:26 | PC.NURSE ---
Patient has slept since arrive to the floor. Patient did receive a bath tonight once arriving to our floor. no complaint were stated by patient.
[2022-10-11 06:27] LABS: Hematocrit 41.7 % (42.0-52.0); Lymphocytes # 0.7 K/mm3 (0.7-4.5); Lymphocytes % 5.3 % (10-50); Mean Corpuscular HGB Conc 33.1 g/dL (31.8-35.4); Mean Corpuscular Hemoglobin 31.1 pg (27.0-31.2); Mean Platelet Volume 7.9 fl (7.4-10.4); Monocytes # 0.7 K/mm3 (0.1-1.0); Neutrophils # 12.5 K/mm3 (1.8-7.8); Neutrophils % 89.5 % (37.0-80.0); Platelet Count 183 K/mm3 (142-424); Red Blood Count 4.43 M/mm3 (4.60-6.20); Red Cell Distribution Width 14.4 % (11.5-17.5)
[2022-10-11 06:30] LABS: Hemoglobin 13.8 g/dL (14.1-18.0)
[2022-10-11 06:32] LABS: MANUAL DIFFERENTIAL MANUAL DIFFERENTIAL (MANUAL DIFF)
--- NOTE | 2022-10-11 07:35 | HMH.PHAINT1 ---
Pharmacy Intervention Comments: MEDICATION RECONCILIATION COMPLETED ON PATIENT USING EXTERNAL FILL HISTORY FROM PHARMACY. -JUAN FRANCO, GEOFFREYD
[2022-10-11 07:44] VITALS: BP 121/75; PULSE 85; RESP 18; TEMP 37.3; O2SAT 98
[2022-10-11 07:48] LABS: Lymphocytes % 11 % (10-50); Monocytes % 4 % (2-9); Neutrophils % 85 % (42-76); Platelet Estimate Normal; RBC Morphology Normal; Total Cells Counted 100
--- NOTE | 2022-10-11 09:05 | SW/DCPLANNER ---
I spoke with this patient regarding discharge plans. Patient stated that he resides at home alone and is still actively employed at [employer]. Patient stated that he has no needs at home at this time. Patient stated that he will have transportation home once medically stable for discharge. I have informed patient that if he does not have transportation I can arrange [employer] at time of discharge. Patient has used [employer] in the past. I will continue to follow up with this patient regarding any discharge needs. Discharge date is unknown at this time. [facility] resource list has been provided to this patient.
--- NOTE | 2022-10-11 09:14 | EXP.HP ---
History of Present Illness *Admission Date: 10/10/22 *Reason for visit:: Voiding constantly *History of present illness: Mr. Talbot is a 61-year-old male with a history of type 2 diabetes mellitus, hypertension, hyperlipidemia, gout, noncompliance, coronary artery disease, STEMI in April 2022, and congestive heart failure who was brought to the emergency room by fellow workers at [facility] due to voiding constantly. To me he denied any type of pain with this. He states he has just been unable to control his bladder. He denies abdominal pain, nausea, vomiting, and diarrhea.He states he did have some chills but did not think he had a fever. With evaluation in the emergency room he was found to be afebrile. White blood cell count was 17,200. Urinalysis did show urinary tract infection. Lactate was elevated at 2.2. BUN was 17 and creatinine 1.4. He received a liter of IV fluids and was started on Rocephin IV. He was given ketorolac 15 mg IV once and Zofran 4 mg IV once. Patient met the criteria for SIRS and was thus admitted. CT of the abdominal and pelvis with impression of no acute findings and moderate to moderate Mikie large colonic stool burden This a.m. with evaluation patient denies any nausea or vomiting. He denies abdominal pain. He states his voiding frequency has decreased. He has been able to eat breakfast. He has had a low-grade temperature of 99.1. He has been tachycardic. Repeat labs this morning show white count of 14,000. BUN is 20 and creatinine has decreased to 1.3. Blood sugar 61 this morning. C-reactive protein is elevated at 239. Urine culture showing gram-negative rods with pending blood culture results. [facility] Disclaimer: The information contained in this section may have been updated after the patient was seen, as this information can be updated by other users. Medical History Abrasion of foot, right Acquired metatarsus varus Blister of foot without infection Coronary artery disease Diabetes mellitus, type 2 Fracture of fourth metatarsal bone of right foot Gout Hyperlipidemia Hypertension Immunization due Ischemic cardiomyopathy LV dysfunction Onychodystrophy Onychomycosis Vaccine counseling Surgical History History of cardiac cath History of tonsillectomy Hx of heart artery stent x5 Family History Other Coronary artery disease Diabetes Hyperlipidemia Social History (Updated 10/10/22 @ 20:58 by Mickie Bell, CECELIA) Smoking Status: Never smoker alcohol intake: never current occupational status: employed Travel in the last 8 weeks: None Review of Systems Constitutional Constitutional: Reports chills and Denies headache(s) Eyes Eyes: Denies decreased night vision ENT Ears, Nose, Mouth, and Throat: Denies disequilibrium, Denies dizziness, Denies otalgia, Denies headache(s) and Denies sore throat *Cardiovascular Cardiovascular: Denies chest pain, Denies dyspnea, Denies leg edema and Denies leg ulcers *Respiratory Respiratory: Denies chest congestion, Denies cough and Denies dyspnea *Gastrointestinal Gastrointestinal: Denies abdominal pain, Denies constipation, Denies loose stools, Denies nausea and Denies vomiting *Genitourinary Genitourinary: Reports urinary frequency and Reports urinary urgency *Musculoskeletal Musculoskeletal: Denies abnormal gait and Denies arthralgias *Neurologic Neurologic: Denies abnormal gait, Denies convulsions, Denies disequilibrium, Denies dizziness and Denies headache(s) Meds Home Medications and Allergies Home Medications Medication Instructions Recorded Confirmed Type allopurinol 300 mg tablet 300 mg PO DAILY gout 11/29/17 10/10/22 History glimepiride 4 mg tablet 2 mg PO DAILY Diabetes 11/29/17 10/10/22 History ertugliflozin 5 mg tablet 5 mg PO DAILY Diabetes 07/29/20 10/10/22 His
[2022-10-11 09:26] LABS: Erythrocyte Sedimentation Rate 35 mm/hr (0-20)
[2022-10-11 09:38] VITALS: BMI 28.0
--- NOTE | 2022-10-11 09:49 | XR_ITS ---
FINAL REPORT CLINICAL HISTORY: wound on rt foot FINDINGS: RIGHT FOOT 3 views of the right foot were obtained. There is no acute fracture or dislocation. There is abnormal sclerosis of the 3rd and 4th metatarsals and base of the 5th metatarsal. There is a healing transverse fracture the proximal 5th metatarsal. Osteophytes are seen at the of the dorsal aspect of the of the intertarsal joints. Hypertrophic changes seen are seen at the base 1st MTP joint. There is no evidence of bony erosion. IMPRESSION: Sclerosis of the 3rd and 4th metatarsals may be due to healing fracture or chronic osteomyelitis. Healing fracture of the base of the 5th metatarsal. Reviewed, Interpreted and Dictated by Hermes Zepeda MD Transcribed by Veena Núñez Authenticated and [facility]
--- NOTE | 2022-10-11 10:09 | XR_ITS ---
FINAL REPORT CLINICAL HISTORY: DM FINDINGS: LEFT FOOT Three views of the left foot demonstrate no acute fracture or dislocation. There are moderate hypertrophic changes of the intertarsal joints. Moderately advanced hypertrophic change of the 1st MTP joint. The visualized joint spaces are normally aligned. The soft tissues are unremarkable. IMPRESSION: No acute bony abnormality. Reviewed, Interpreted and Dictated by Hermes Zepeda MD Transcribed by Veena Núñez Authenticated and . [facility]
--- NOTE | 2022-10-11 14:01 | EXP.ORTH.CON ---
Documented by User: Celeste Strong APRN 10/11/22 17:15 History of Present Illness *Admission Date: 10/10/22 *History of present illness: Patient is a 61-year-old male with a history of type 2 diabetes mellitus, hypertension, hyperlipidemia, gout, noncompliance, coronary artery disease, STEMI in April 2022, and congestive heart failure who was brought to the emergency room by fellow workers due to voiding constantly and being unable to control his bladder. With evaluation in the emergency room patient met the criteria for SIRS and was thus admitted. Podiatry was consulted for right lateral foot wound/eschar. Patient is sitting up in bed eating lunch. Alert and oriented. No acute distress noted. Right lateral foot with a scab noted. No cellulitis and no drainage noted. Toenails dystrophic, yellow and thick. Patient denies pain to right foot with direct palpation. Ordered labs esr, crp, ALVARO, b/l foot 3 view x-rays to r/o underlying abnormalities and treat accordingly. Patient made no request. Podiatry to follow in a.m. [facility] Disclaimer: The information contained in this section may have been updated after the patient was seen, as this information can be updated by other users. Medical History (Updated 10/11/22 @ 14:06 by Celeste Strong APRN) Abrasion of foot, right Acquired metatarsus varus Blister of foot without infection Coronary artery disease Diabetes mellitus, type 2 Fracture of fourth metatarsal bone of right foot Gout Hyperlipidemia Hypertension Immunization due Ischemic cardiomyopathy LV dysfunction Onychodystrophy Onychomycosis Vaccine counseling Surgical History History of cardiac cath History of tonsillectomy Hx of heart artery stent Family History Other Coronary artery disease Diabetes Hyperlipidemia Social History (Updated 10/10/22 @ 20:58 by Mickie Bell RN) Smoking Status: Never smoker alcohol intake: never current occupational status: employed Travel in the last 8 weeks: None Review of Systems Constitutional Constitutional: Denies headache(s) ENT Ears, Nose, Mouth, and Throat: Denies disequilibrium, Denies dizziness and Denies headache(s) *Musculoskeletal Musculoskeletal: Denies abnormal gait *Neurologic Neurologic: Denies abnormal gait, Denies convulsions, Denies disequilibrium, Denies dizziness and Denies headache(s) Meds Home Medications and Allergies Home Medications Medication Instructions Recorded Confirmed Type allopurinol 300 mg tablet 300 mg PO DAILY gout 11/29/17 10/10/22 History glimepiride 4 mg tablet 2 mg PO DAILY Diabetes 11/29/17 10/10/22 History ertugliflozin 5 mg tablet 5 mg PO DAILY Diabetes 07/29/20 10/10/22 History lovastatin 20 mg tablet 20 mg PO DAILY Cholesterol 07/29/20 10/10/22 History metformin 500 mg tablet 500 mg PO BIDWMEAL Diabetes 07/29/20 10/11/22 History amlodipine 5 mg tablet 5 mg PO DAILY Hypertension 08/23/22 10/10/22 History aspirin 81 mg tablet,delayed 81 mg PO DAILY HEART HEALTH 10/10/22 10/10/22 History release sacubitril 49 mg-valsartan 51 mg 1 tab PO BID Heart failure 10/10/22 10/10/22 History tablet (Entresto) ticagrelor 90 mg tablet (Brilinta) 90 mg PO BID [employer] 10/10/22 10/10/22 History carvedilol 3.125 mg tablet 3.125 mg PO BID Hypertension 10/11/22 10/11/22 History vericiguat 10 mg tablet (Verquvo) 10 mg PO DAILY Heart failure 10/11/22 10/11/22 History New Prescriptions to Start Prescriptions: Allergies Allergy/AdvReac Type Severity Reaction Status Date / Time No Known Allergies Allergy Verified 08/23/22 08:51 Ortho Exam (Inpt) Vital signs and Labs for Last 24 Hours: Temp Pulse Resp BP Pulse Ox 99.1 F 85 18 121/75 98 10/11/22 07:44 10/11/22 07:44 10/11/22 07:44 10/11/22 07:44 10/11/22 07:44 Laboratory Results - last 24 hr 10/10/22 17:09: Urine Color Leandro hickman
--- NOTE | 2022-10-11 15:03 | EXP.CARD.CON ---
History of Present Illness History of Present Illness Consult date: 10/11/22 Requesting physician: Odette Trujillo Chief complaint: Osteo of right foot, UTI Additional Medical History:: 1.? Diabetes mellitus, treated for many years 2.? Hypertension, treated for many years 3.? Hyperlipidemia, treated for many years 4.? History of gout 5.? STEMI, 05/06/2022 A.? LHC, 05/06/2022, multiple MARTHA to circumflex/OM and RCA/PDA.? Ischemic cardiomyopathy with ejection fraction of about 20% with LVEDP of 20 mm Hg B.? Echocardiogram 05/07/2022 EF 30% C. Limited echocardiogram, 07/2022, EF 56% 6.? COVID, 05/06/2022 7. UTI with SIRS, 09/2022 8. PAD A. ALVARO, 10/11/2022, right 0.7, left 1.4 B. X-ray right foot, 10/11/2022, sclerosis of third and fourth metatarsals may be due to healing fracture or chronic osteomyelitis. Healing fracture of the base of the fifth metatarsal History of present illness: Mr. Talbot is a 61-year-old male with a history of type 2 diabetes mellitus, hypertension, hyperlipidemia, gout, noncompliance, coronary artery disease, STEMI in April 2022, and congestive heart failure who was brought to the emergency room by fellow workers at [facility] due to voiding constantly.? To me he denied any type of pain with this.? He states he has just been unable to control his bladder.? He denies abdominal pain, nausea, vomiting, and diarrhea.He states he did have some chills but did not think he had a fever. With evaluation in the emergency room he was found to be afebrile.? White blood cell count was 17,200.? Urinalysis did show urinary tract infection.? Lactate was elevated at 2.2.? BUN was 17 and creatinine 1.4.? He received a liter of IV fluids and was started on Rocephin IV.? He was given ketorolac 15 mg IV once and Zofran 4 mg IV once.? Patient met the criteria for SIRS and was thus admitted. CT of the abdominal and pelvis with impression of no acute findings and moderate to moderate Mikie large colonic stool burden This a.m. with evaluation patient denies any nausea or vomiting.? He denies abdominal pain.? He states his voiding frequency has decreased.? He has been able to eat breakfast. He has had a low-grade temperature of 99.1.? He has been tachycardic.? Repeat labs this morning show white count of 14,000.? BUN is 20 and creatinine has decreased to 1.3.? Blood sugar 61 this morning.? C-reactive protein is elevated at 239.? Urine culture showing gram-negative rods with pending blood culture results. The above per Dr. Grissom's H&P. Patient was also seen by podiatry due to abrasion/wound/eschar of the right foot with concern for fracture. Patient did undergo ALVARO to assess for PAD and noted to be abnormal in the right leg. Cardiology was consulted for further evaluation. Of note patient did have an inferior STEMI in April of this year at which time he received multiple stents to the circumflex/OM and RCA/PDA. He denies any further chest pain since then. Patient's ischemic cardiomyopathy did improve on goal-directed medical therapy with limited echocardiogram in July of this year showing EF 56% PFSH [facility] Disclaimer: The information contained in this section may have been updated after the patient was seen, as this information can be updated by other users. Medical History (Updated 10/11/22 @ 14:06 by Celeste Strong APRN) Abrasion of foot, right Acquired metatarsus varus Blister of foot without infection Coronary artery disease Diabetes mellitus, type 2 Fracture of fourth metatarsal bone of right foot Gout Hyperlipidemia Hypertension Immunization due Ischemic cardiomyopathy LV dysfunction Onychodystrophy Onychomycosis Vaccine counseling Surgical History History of cardiac cath History of tonsillectomy Hx of heart artery stent Family History Other Coronary artery disease Diabetes Hyperlipidemia Social History (Updated
[2022-10-11 15:58] VITALS: BP 118/75; PULSE 96; RESP 16; TEMP 37.1; O2SAT 99
[2022-10-11 20:00] VITALS: BP 131/73; PULSE 100; RESP 18; TEMP 38.1; O2SAT 97
[2022-10-11 20:14] LABS: POC Glucose,Bedside 150 (70-110)
--- NOTE | 2022-10-11 20:49 | PC.NURSE ---
consent for procedure in AM signed. pt had temperature of 100.6, gave 600 mg tylenol. pt nauseous and vomited after taking PO meds, pt took zofran with no other complaints.
[2022-10-11 23:32] VITALS: TEMP 37.7
[2022-10-12] VITALS (15 sets, daily range): BP systolic 123–173; BP diastolic 80–103; PULSE 73–89; RESP 16–18; TEMP 36.6–37.2; O2SAT 92–99; BMI 28.2
--- NOTE | 2022-10-12 | IR_ITS ---
APPROVED REPORT Patient Location: Inpatient PROCEDURES Left femoral arterial access Catheter placement in the right superficial femoral artery Right superficial femoral artery antegrade angiogram with unilateral runoff to the right foot Intravascular lithotripsy to the right PT trunk Intravascular lithotripsy to the right popliteal artery Drug-coated balloon angioplasty to the right PT trunk Drug-coated balloon angioplasty to the right popliteal artery Self-expanding stent deployment to the right PT trunk extending back into the right popliteal artery Self-expanding stent deployment to the distal superficial femoral artery INDICATION Abnormal ALVARO 0.6, Critical disease in the right PT trunk and right popliteal artery, Ischemic/infectious osteomyelitis, Peripheral artery disease Informed consent was obtained prior to the procedure. COMPLICATIONS None Estimated Blood Loss: Less than 10 mls TECHNIQUE 1% lidocaine used to anesthetize the left femoral groin. The left femoral artery was accessed via the Seldinger technique. 5 [place] sheath was placed in the left femoral artery and a rim catheter was placed under fluoroscopic guidance into the right common iliac artery. An advantage wire was then placed distally into the right SFA and the rim catheter was advanced into the SFA. Unilateral angiography with runoff into the right foot was performed. Following this therapeutic Was administered given therapeutic ACT and the rim catheter and 5 [place] sheath were exchanged for a long destination sheath. A Choice PT extra-support wire was placed distally and a 4.5 x 60 mm lithotripsy balloon was deployed into the PT trunk at 4, 5 and 10 deana. All 300 pulsations were delivered. Following this a 6 mm x 150 mm drug-coated balloon was then deployed at 3 minutes at 10 deana in the PT trunk and popliteal artery. Following this an 8 mm x 100 mm self-expanding stent was placed into the popliteal artery due to persistent calcification and diffuse intravascular irregularities. An additional 8 mm x 100 mm self-expanding stent was placed proximal to the for stent yet still overlapping it. Repeat angiography demonstrated significant stepdown therefore a 7 mm x 20 mm self-expanding stent was placed into the PT trunk and deployed. A 7 mm x 20 mm balloon was deployed at 12 deana to post dilate and mesh the 2 stents and further post dilate the distal tip of the first 8 mm stent. An 8 mm x 80 mm balloon was then deployed at nominal pressure up and down the SFA and popliteal artery to post dilate. Excellent angiographic results were obtained. At the end the procedure the apparatus was removed the groin is reprepped closure change sheath was removed and hemostasis achieved using Perclose device patient was transferred to the postop putting in stable condition ANGIOGRAPHIC RESULTS Right femoral artery is normal widely patent. Right profunda femoris artery is small but patent. Right superficial femoral artery has mild to moderate nonflow limiting atheromatous plaque. At Piotr's canal there is a calcified 70% stenosis. The popliteal liver there is aneurysmal dilatation with dense calcification and a focal 80% stenosis followed by an 80% stenosis at the PT trunk. The peroneal artery and posterior tibialis artery are widely patent and given inline flow to the right foot. The right anterior tibialis artery is occluded IMPRESSION Severe to critical disease in the right PT trunk which extended back in the right popliteal artery and the distal right SFA Successful intravascular lithotripsy to the PT trunk and popliteal artery Successful drug-coated balloon angioplasty to the right PT trunk, right popliteal artery and right superfici
[2022-10-12 06:04] LABS: Basophils % 0.1 % (0.1-2.0); Eosinophils # 0.1 K/mm3 (0.0-0.4); Eosinophils % 0.7 % (0.1-12.0); Hematocrit 41.1 % (42.0-52.0); Hemoglobin 13.4 g/dL (14.1-18.0); Lymphocytes # 0.7 K/mm3 (0.7-4.5); Lymphocytes % 5.2 % (10-50); Mean Corpuscular HGB Conc 32.6 g/dL (31.8-35.4); Mean Corpuscular Hemoglobin 31.3 pg (27.0-31.2); Mean Corpuscular Volume 95.9 fl (80-94); Mean Platelet Volume 7.6 fl (7.4-10.4); Monocytes # 0.7 K/mm3 (0.1-1.0); Monocytes % 5.6 % (1.7-9.3); Neutrophils # 11.4 K/mm3 (1.8-7.8); Neutrophils % 88.4 % (37.0-80.0); Platelet Count 165 K/mm3 (142-424); Red Blood Count 4.28 M/mm3 (4.60-6.20); Red Cell Distribution Width 14.4 % (11.5-17.5); White Blood Count 12.9 K/mm3 (4.8-10.8)
[2022-10-12 06:07] LABS: POC Glucose,Bedside 109 (70-110)
[2022-10-12 06:31] LABS: MANUAL DIFFERENTIAL MANUAL DIFFERENTIAL (MANUAL DIFF)
[2022-10-12 06:36] LABS: C-Reactive Protein 280.4 mg/L (0-4)
[2022-10-12 06:56] LABS: Erythrocyte Sedimentation Rate 70 mm/hr (0-20)
[2022-10-12 07:29] LABS: Lymphocytes % 7 % (10-50); Monocytes % 5 % (2-9); Neutrophils % 88 % (42-76); Platelet Estimate Normal; RBC Morphology Normal; Total Cells Counted 100
--- NOTE | 2022-10-12 07:58 | EXP.ORTH.PN ---
Subjective *Date: 10/12/22 *Time: 08:08 Interval history: Patient resting comfortably laying flat in bed. Denies pain to the feet. No new podiatry complaints this morning. Had some dried blood from the right great toe, looks like the toe was scraped on the bed. No deep opening or wounds noted. Ortho Exam (Inpt) Vital signs and Labs for Last 24 Hours: Temp Pulse Resp BP Pulse Ox 98.2 F 85 16 123/81 99 10/12/22 07:15 10/12/22 07:15 10/12/22 07:15 10/12/22 07:15 10/12/22 07:15 Laboratory Results - last 24 hr 10/11/22 05:35: ESR 35 H 10/11/22 05:35: C-Reactive Protein 239.0 H 10/11/22 20:05: POC Glucose 150 H 10/12/22 05:03: POC Glucose 109 10/12/22 05:45: WBC 12.9 H, RBC 4.28 L, Hgb 13.4 L, Hct 41.1 L, MCV 95.9 H, MCH 31.3 H, MCHC 32.6, RDW 14.4, Plt Count 165, MPV 7.6, Neut % (Auto) 88.4 H, Lymph % (Auto) 5.2 L, [place] % (Auto) 5.6, Eos % (Auto) 0.7, Baso % (Auto) 0.1, Neut # (Auto) 11.4 H, Lymph # (Auto) 0.7, [place] # (Auto) 0.7, Eos # (Auto) 0.1, Baso # (Auto) 0.0, Total Counted 100, Neutrophils % (Manual) 88 H, Lymphocytes % (Manual) 7 L, Monocytes % (Manual) 5, Platelet Estimate Normal, RBC Morphology Normal, ESR 70 H 10/12/22 05:45: C-Reactive Protein 280.4 H Temp Pulse Resp BP Pulse Ox 99.1 F 85 18 121/75 98 10/11/22 07:44 10/11/22 07:44 10/11/22 07:44 10/11/22 07:44 10/11/22 07:44 Laboratory Results - last 24 hr 10/10/22 17:09: Urine Color Dk yellow, Urine Appearance Cloudy, Urine pH 5.5, Ur Specific [place]eder 1.025, Urine Protein 2+, Urine Glucose (UA) 2+, Urine Ketones Trace, Urine Blood 3+, Urine Nitrate Positive, Urine Bilirubin Negative, Urine Urobilinogen 1.0, Ur Leukocyte Esterase 1+ A, Urine RBC 20-50, Urine WBC 20-50, Ur Squamous Epith Cells 3-5, Urine Bacteria 2+ 10/10/22 17:33: WBC 17.2 H, RBC 4.99, Hgb 15.5, Hct 47.4, MCV 95.0 H, MCH 31.1, MCHC 32.7, RDW 14.4, Plt Count 204, MPV 8.0, Neut % (Auto) 92.1 H, Lymph % (Auto) 2.7 L, [place] % (Auto) 5.0, Eos % (Auto) 0.1, Baso % (Auto) 0.1, Neut # (Auto) 15.9 H, Lymph # (Auto) 0.5 L, [place] # (Auto) 0.9, Eos # (Auto) 0.0, Baso # (Auto) 0.0, Total Counted 100, Neutrophils % (Manual) 91 H, Lymphocytes % (Manual) 8 L, Monocytes % (Manual) 1 L, Platelet Estimate Normal, RBC Morphology Normal 10/10/22 17:33: Sodium 138, Potassium 4.0, Chloride 100, Carbon Dioxide 25, Anion Gap 17.0 H, BUN 17, Creatinine 1.40 H, Estimated Creat Clear 73, Estimated GFR 52 L, Est GFR ( Amer) 63, Glucose 159 H, Calcium 9.0, Total Bilirubin 1.2, AST 32, ALT 26, Alkaline Phosphatase 92, Total Protein 7.1, Albumin 4.3, Globulin 2.8, Albumin/Globulin Ratio 1.5, Procalcitonin 0.302 10/10/22 17:33: Lactate 2.2 H 10/10/22 18:45: SARS-CoV-2 (PCR) Not detected, Influenza A Untype (PCR) Not detected, Influenza Type B (PCR) Not detected 10/10/22 22:10: Lactate 2.7 H 10/11/22 00:25: Lactate 1.4 10/11/22 05:35: WBC 14.0 H, RBC 4.43 L, Hgb 13.8 L D, Hct 41.7 L, MCV 94.2 H, MCH 31.1, MCHC 33.1, RDW 14.4, Plt Count 183, MPV 7.9, Neut % (Auto) 89.5 H, Lymph % (Auto) 5.3 L, [place] % (Auto) 5.0, Eos % (Auto) 0.1, Baso % (Auto) 0.1, Neut # (Auto) 12.5 H, Lymph # (Auto) 0.7, [place] # (Auto) 0.7, Eos # (Auto) 0.0, Baso # (Auto) 0.0, Total Counted 100, Neutrophils % (Manual) 85 H, Lymphocytes % (Manual) 11, Monocytes % (Manual) 4, Platelet Estimate Normal, RBC Morphology Normal 10/11/22 05:35: Sodium 139, Potassium 3.9, Chloride 105, Carbon Dioxide 24, Anion Gap 13.9, BUN 20, Creatinine 1.30 H, Estimated Creat Clear 77, Estimated GFR 57 L, Est GFR ( Amer) 68, Glucose 61 L D, Calcium 7.9 L 10/11/22 05:35: ESR 35 H 10/11/22 05:35: C-Reactive Protein 239.0 H I & O for Labs for Last 24 Hours: Intake & Output 10/09/22 10/10/22 10/11/22 10/12/22 11:59 11:59 11:59 11:59 Intake Total 480 / 480 1455 / 1455 Output Total 400 / 400 2625 / 2625 Balance 80 / 80 -1170 / -1170 Weight 196 lb 0.913 oz 197 lb Intake & Output 10/08/22 10/09/22 10/10/22 10/11/22 23:59 23:59 23:59 23:59 Intake Total
--- NOTE | 2022-10-12 08:15 | EXP.ACUTE.PN ---
Subjective *Date: 10/12/22 *Time: 08:45 Interval history: Patient states he slept little last night. Food did not taste very good yesterday. He denied nausea and vomiting. This a.m. he is n.p.o. for procedure on his right lower extremity. Podiatry did see the patient yesterday and debrided the wound in the right lateral foot.He was noted to have diminished pulses with abnormal waveforms. With findings concerning for significant arterial occlusive disease on the right. He was then seen by cardiology with plan to proceed with lower extremity angiogram of the right leg today. Urine culture did show E. coli with anthony sensitivity. Blood culture results are still pending Medical Exam Vital signs and Labs for Last 24 Hours: Vital Signs Temp Pulse Resp BP Pulse Ox 10/12/22 07:15 98.2 F 85 16 123/81 99 10/12/22 04:00 99.0 F 84 18 141/80 H 98 10/11/22 23:32 99.9 F H 10/11/22 20:00 100.6 F H 100 H 18 131/73 97 10/11/22 15:58 98.8 F 96 H 16 118/75 99 Intake and Output 10/11/22 10/12/22 10/12/22 19:59 03:59 11:59 Intake Total 240 / 240 1215 / 1455 Output Total 300 / 300 1250 / 1550 1075 / 2625 Balance -60 / -60 -1250 / -1310 140 / -1170 Intake: Intake, Oral Amount 240 / 240 0 / 240 Intake, Total IV Amount 1215 / 1215 0.9 % Sodium Chloride 1000ML 1, 1215 / 1215 000 ml @ 100 mls/hr IV .Q10H [facility] Rx#:[id number] Output: Output, Urine Amount 300 / 300 1250 / 1550 1075 / 2625 Other: Number of Unmeasured Voids 1 0 0 Weight 197 lb Patient Weight 10/12/22 11:59 Weight 197 lb Laboratory Results - last 24 hr 10/11/22 05:35: ESR 35 H 10/11/22 05:35: C-Reactive Protein 239.0 H 10/11/22 20:05: POC Glucose 150 H 10/12/22 05:03: POC Glucose 109 10/12/22 05:45: WBC 12.9 H, RBC 4.28 L, Hgb 13.4 L, Hct 41.1 L, MCV 95.9 H, MCH 31.3 H, MCHC 32.6, RDW 14.4, Plt Count 165, MPV 7.6, Neut % (Auto) 88.4 H, Lymph % (Auto) 5.2 L, [place] % (Auto) 5.6, Eos % (Auto) 0.7, Baso % (Auto) 0.1, Neut # (Auto) 11.4 H, Lymph # (Auto) 0.7, [place] # (Auto) 0.7, Eos # (Auto) 0.1, Baso # (Auto) 0.0, Total Counted 100, Neutrophils % (Manual) 88 H, Lymphocytes % (Manual) 7 L, Monocytes % (Manual) 5, Platelet Estimate Normal, RBC Morphology Normal, ESR 70 H 10/12/22 05:45: C-Reactive Protein 280.4 H I & O for Labs for Last 24 Hours: Intake & Output 10/09/22 10/10/22 10/11/22 10/12/22 11:59 11:59 11:59 11:59 Intake Total 480 / 480 1455 / 1455 Output Total 400 / 400 2625 / 2625 Balance 80 / 80 -1170 / -1170 Weight 196 lb 0.913 oz 197 lb Microbiology Reports for the Last 24 Hours: Microbiology 10/10/22 17:09 Urine,Clean Catch Urine Culture - Final Escherichia coli Constitutional: Present no acute distress Comment:: Appears comfortable lying in the bed Respiratory: Present CTA bilaterally Cardiac: Present Reg Rate and Rhythm GI: Present soft; Absent distention, tenderness or guarding Extremities: Absent edema or calf tenderness Comment:: Right foot wound is dry without erythema. Neuro: Present alert and oriented x 3 Assessment and Plan *Assessment and plan (1) E. coli UTI: Status: Acute Category: Medical Code(s): N39.0 - Urinary tract infection, site not specified; B96.20 - Unspecified Escherichia coli [E. coli] as the cause of diseases classified elsewhere (2) Abrasion of great toe of right foot: Status: Acute Qualifiers: Encounter type: initial encounter Qualified Code(s): S90.411A - Abrasion, right great toe, initial encounter Category: Medical Code(s): S90.411A - Abrasion, right great toe, initial encounter (3) Encounter for wound care: Status: Acute Category: Medical Code(s): Z51.89 - Encounter for other specified aftercare (4) Diabetic foot: Status: Acute Category: Medical Code(s): E11.8 - Type 2 diabetes mellitus with unspecified complica
--- NOTE | 2022-10-12 08:31 | EXP.CARD.PN ---
Subjective Subjective Date: 10/12/22 Time: 08:31 Principal diagnosis: UTI, PAD Interval history: 61-year-old white male in bed in no acute distress. Discussed procedure for lower extremity angiogram today. Patient understands and agrees to proceed. Exam Data for Last 24 hours Vital signs and Labs for Last 24 Hours: Temp Pulse Resp BP Pulse Ox 98.2 F 85 16 123/81 99 10/12/22 07:15 10/12/22 07:15 10/12/22 07:15 10/12/22 07:15 10/12/22 07:15 Laboratory Results - last 24 hr 10/11/22 05:35: ESR 35 H 10/11/22 05:35: C-Reactive Protein 239.0 H 10/11/22 20:05: POC Glucose 150 H 10/12/22 05:03: POC Glucose 109 10/12/22 05:45: WBC 12.9 H, RBC 4.28 L, Hgb 13.4 L, Hct 41.1 L, MCV 95.9 H, MCH 31.3 H, MCHC 32.6, RDW 14.4, Plt Count 165, MPV 7.6, Neut % (Auto) 88.4 H, Lymph % (Auto) 5.2 L, [place] % (Auto) 5.6, Eos % (Auto) 0.7, Baso % (Auto) 0.1, Neut # (Auto) 11.4 H, Lymph # (Auto) 0.7, [place] # (Auto) 0.7, Eos # (Auto) 0.1, Baso # (Auto) 0.0, Total Counted 100, Neutrophils % (Manual) 88 H, Lymphocytes % (Manual) 7 L, Monocytes % (Manual) 5, Platelet Estimate Normal, RBC Morphology Normal, ESR 70 H 10/12/22 05:45: C-Reactive Protein 280.4 H I & O for Last 24 hours: Intake & Output 10/09/22 10/10/22 10/11/22 10/12/22 11:59 11:59 11:59 11:59 Intake Total 480 / 480 1455 / 1455 Output Total 400 / 400 2625 / 2625 Balance 80 / 80 -1170 / -1170 Weight 196 lb 0.913 oz 197 lb Microbiology Reports for the Last 24 Hours: Microbiology 10/10/22 17:09 Urine,Clean Catch Urine Culture - Final Escherichia coli *Routine Respiratory Exam Respiratory: Present CTA bilaterally *Routine Cardiovascular Exam Cardiovascular: Present RRR *Routine Extremities Exam Extremities: Present edema; Absent cyanosis or clubbing *Routine Neurological Exam Neurological: Present alert, oriented X3 and CN II-XII intact Progress Note: A&P Assessment and plan (1) E. coli UTI: Status: Acute (2) Abrasion of great toe of right foot: Status: Acute (3) Encounter for wound care: Status: Acute (4) Diabetic foot: Status: Acute (5) Diabetes mellitus: Status: Chronic (6) Osteoarthritis: Status: Acute (7) Onychodystrophy: Status: Acute (8) Onychomycosis: Status: Acute (9) Fracture of fourth metatarsal bone of right foot: Status: Acute (10) Fracture of fifth metatarsal bone of right foot: Status: Acute (11) Severe sepsis: Status: Acute (12) SIRS (systemic inflammatory response syndrome): Status: Acute (13) PAD (peripheral artery disease): Status: Acute Assessment and Plan Assessment and Plan for All Diagnoses:: 1.? UTI with SIRS On antibiotic therapy 2.? PAD Abnormal ALVARO of the right leg with possible osteomyelitis of the third and fourth metatarsals (Podiatry does not think there is osteomyelitis present) Plan to proceed with lower extremity angiogram of the right leg tomorrow 3.? Diabetes mellitus type 2 Hemoglobin A1c 5.9, 06/2022 4.? Hypertension, controlled Continue carvedilol and Entresto amlodipine on hold for now 5.? Hyperlipidemia On statin therapy with last LDL 85, 04/2022 6.? CAD with coronary stenting in April, Continue aspirin and Brilinta 7.? Heart failure with recovered ejection fraction Continue carvedilol, Entresto and Verquvo Further recommendations to follow pending LE angiogram.
--- NOTE | 2022-10-12 10:55 | PC.NURSE ---
pt to engineering lab technician
[2022-10-12 14:26] LABS: CATHL Activated Clotting Time 206 SEC (74-125)
--- NOTE | 2022-10-12 19:40 | PC.NURSE ---
spoke with dr field r/t increased BP post peripheral angio. he is aware and will continue to monitor.
[2022-10-12 21:19] LABS: POC Glucose,Bedside 136 (70-110)
--- NOTE | 2022-10-12 22:04 | PC.NURSE ---
bp 172/103, pulse 86. called emir, verbal order for additional one time coreg 3.125mg po.
--- NOTE | 2022-10-12 23:41 | PC.NURSE ---
pt vomited, gave zofran IV
[2022-10-13] VITALS: BP 175/109; PULSE 100; RESP 16; TEMP 37.1; O2SAT 93
--- NOTE | 2022-10-13 00:18 | PC.NURSE ---
bp 175/109, pulse 100. called emir, ordered 0.5 inch nitropaste one time.
--- NOTE | 2022-10-13 00:34 | PC.NURSE ---
reassessed bp 150/100
[2022-10-13 02:40] VITALS: BP 150/97
[2022-10-13 04:00] VITALS: BP 149/100; PULSE 93; RESP 17; TEMP 36.7; O2SAT 95; BMI 28.0
[2022-10-13 07:23] VITALS: BP 150/96; PULSE 85; RESP 18; TEMP 36.8; O2SAT 96
[2022-10-13 07:27] LABS: POC Glucose,Bedside 112 (70-110)
--- NOTE | 2022-10-13 08:16 | EXP.ACUTE.PN ---
Subjective *Date: 10/13/22 *Time: 08:25 Interval history: Patient states he has had some vomiting but he is eating all of his breakfast this am. He denies any pain. Medical Exam Vital signs and Labs for Last 24 Hours: Vital Signs Temp Pulse Pulse Resp BP Pulse Ox 10/13/22 07:23 98.3 F 85 18 150/96 H 96 10/13/22 04:00 98.0 F 93 H 17 149/100 H 95 10/13/22 02:40 150/97 H 10/13/22 00:00 98.8 F 100 H 16 175/109 H 93 L 10/12/22 19:45 89 16 173/96 H 97 10/12/22 22:03 86 16 172/103 H 97 10/12/22 16:45 98.0 F 79 18 162/94 H 98 10/12/22 15:45 97.9 F 73 16 159/96 H 98 10/12/22 15:15 97.8 F 73 16 154/88 H 98 10/12/22 14:43 97.9 F 75 16 149/96 H 98 10/12/22 14:30 78 18 148/94 H 93 L 10/12/22 14:15 77 18 153/92 H 96 10/12/22 14:00 76 18 152/95 H 96 10/12/22 13:45 75 18 140/97 H 92 L 10/12/22 13:40 77 18 145/95 H 93 L 10/12/22 13:35 83 18 142/93 H 95 10/12/22 13:30 81 81 18 151/90 H 95 Intake and Output 10/12/22 10/13/22 10/13/22 19:59 03:59 11:59 Intake Total 0 / 300 60 / 300 240 / 300 Output Total 1375 / 5125 2850 / 5125 900 / 5125 Balance -1375 / -4825 -2790 / -4825 -660 / -4825 Intake: Intake, Oral Amount 0 / 300 60 / 300 240 / 300 Output: Output, Urine Amount 1375 / 5125 2850 / 5125 900 / 5125 Other: Number of Voids 3 Number of Unmeasured Voids 0 1 0 Weight 195 lb 14.4 oz Patient Weight 10/13/22 11:59 Weight 195 lb 14.4 oz Laboratory Results - last 24 hr 10/12/22 12:57: Activated Clotting Time 206 H* 10/12/22 20:17: POC Glucose 136 H 10/13/22 05:21: POC Glucose 112 H I & O for Labs for Last 24 Hours: Intake & Output 10/10/22 10/11/22 10/12/22 10/13/22 11:59 11:59 11:59 11:59 Intake Total 480 / 480 1455 / 1455 300 / 300 Output Total 400 / 400 2875 / 2875 5125 / 5125 Balance 80 / 80 -1420 / -1420 -4825 / -4825 Weight 196 lb 0.913 oz 197 lb 195 lb 14.4 oz Microbiology Reports for the Last 24 Hours: Microbiology 10/10/22 19:35 Blood Blood Culture - Preliminary NO GROWTH AFTER 48 HOURS 10/10/22 17:33 Blood Blood Culture - Preliminary NO GROWTH AFTER 48 HOURS 10/10/22 17:09 Urine,Clean Catch Urine Culture - Final Escherichia coli Constitutional: Present no acute distress Comment:: Appears comfortable lying in the bed Respiratory: Present CTA bilaterally Cardiac: Present Reg Rate and Rhythm GI: Present soft; Absent distention, tenderness or guarding Extremities: Absent edema or calf tenderness Comment:: Right foot wound is dry without erythema. Neuro: Present alert and oriented x 3 Assessment and Plan *Assessment and plan (1) E. coli UTI: Status: Acute Category: Medical Code(s): N39.0 - Urinary tract infection, site not specified; B96.20 - Unspecified Escherichia coli [E. coli] as the cause of diseases classified elsewhere (2) Abrasion of great toe of right foot: Status: Acute Qualifiers: Encounter type: initial encounter Qualified Code(s): S90.411A - Abrasion, right great toe, initial encounter Category: Medical Code(s): S90.411A - Abrasion, right great toe, initial encounter (3) Encounter for wound care: Status: Acute Category: Medical Code(s): Z51.89 - Encounter for other specified aftercare (4) Diabetic foot: Status: Acute Category: Medical Code(s): E11.8 - Type 2 diabetes mellitus with unspecified complications (5) Diabetes mellitus: Status: Chronic Qualifiers: Diabetes mellitus complication status: without complication Diabetes mellitus senior living insulin use: without senior living use Diabetes mellitus type: type 2 Qualified Code(s): E11.9 - Type 2 diabetes mellitus without complications Category: Medical Code(s): E11.9 - Type 2
--- NOTE | 2022-10-13 09:03 | EXP.CARD.PN ---
Subjective Subjective Date: 10/13/22 Time: 09:03 Principal diagnosis: UTI, PAD Interval history: 61-year-old white male in bed in no acute distress. Nurse relates patient complaining of some left upper chest discomfort overnight. Patient does confirm this but only if asking him directly about this. There is no associated aggravating or alleviating symptoms with movement, cough or deep breathing. Not reproducible with palpation. Patient has a very flat affect and is difficult to assess regarding this issue He states his leg does feel better after intervention yesterday EKG is shows sinus rhythm at [address]-T abnormalities in the inferolateral leads which are unchanged compared to 05/06/2022 tracing Exam Data for Last 24 hours Vital signs and Labs for Last 24 Hours: Temp Pulse Resp BP Pulse Ox 98.3 F 85 18 150/96 H 96 10/13/22 07:23 10/13/22 07:23 10/13/22 07:23 10/13/22 07:23 10/13/22 07:23 Laboratory Results - last 24 hr 10/12/22 12:57: Activated Clotting Time 206 H* 10/12/22 20:17: POC Glucose 136 H 10/13/22 05:21: POC Glucose 112 H I & O for Last 24 hours: Intake & Output 10/10/22 10/11/22 10/12/22 10/13/22 11:59 11:59 11:59 11:59 Intake Total 480 / 480 1455 / 1455 300 / 300 Output Total 400 / 400 2875 / 2875 5125 / 5125 Balance 80 / 80 -1420 / -1420 -4825 / -4825 Weight 196 lb 0.913 oz 197 lb 195 lb 14.4 oz Microbiology Reports for the Last 24 Hours: Microbiology 10/10/22 19:35 Blood Blood Culture - Preliminary NO GROWTH AFTER 48 HOURS 10/10/22 17:33 Blood Blood Culture - Preliminary NO GROWTH AFTER 48 HOURS 10/10/22 17:09 Urine,Clean Catch Urine Culture - Final Escherichia coli Constitutional Constitutional: no acute distress *Routine Respiratory Exam Respiratory: Present CTA bilaterally *Routine Cardiovascular Exam Cardiovascular: Present RRR *Routine Extremities Exam Extremities: Absent cyanosis, clubbing or edema Progress Note: A&P Assessment and plan (1) E. coli UTI: Status: Acute (2) Abrasion of great toe of right foot: Status: Acute (3) Encounter for wound care: Status: Acute (4) Diabetic foot: Status: Acute (5) Diabetes mellitus: Status: Chronic (6) Osteoarthritis: Status: Acute (7) Onychodystrophy: Status: Acute (8) Onychomycosis: Status: Acute (9) Fracture of fourth metatarsal bone of right foot: Status: Acute (10) Fracture of fifth metatarsal bone of right foot: Status: Acute (11) Severe sepsis: Status: Acute (12) SIRS (systemic inflammatory response syndrome): Status: Acute (13) PAD (peripheral artery disease): Status: Acute (14) Gout: Status: Acute (15) Popliteal artery stenosis: Status: Acute Assessment and Plan Assessment and Plan for All Diagnoses:: 1.? UTI with SIRS On antibiotic therapy 2.? Abnormal ALVARO of the right leg with possible osteomyelitis of the third and fourth metatarsals Status post stenting to right popliteal artery, 10/12/2022 Continue aspirin and Plavix therapy Start Xarelto 2.5 mg twice daily 3.? Diabetes mellitus type 2 Hemoglobin A1c 5.9, 06/2022 4.? Hypertension, controlled Continue carvedilol, amlodipine and Entresto 5.? Hyperlipidemia On statin therapy with last LDL 85, 04/2022 6.? CAD with coronary stenting in April, Continue aspirin and Brilinta 7.? Heart failure with recovered ejection fraction Continue carvedilol, Entresto and Verquvo 8. Abnormal EKG, chronic with T wave inversions in the inferolateral leads and poor R wave progression anteriorly. Stable for discharge home from cardiology standpoint. Home medication recommendations Aspirin 81 mg daily for 30 days and then discontinue Use Plavix 75 mg daily instead of Brilinta in light of starting Xarelto therapy Resume Coreg but increase to 6.25 mg mg t
--- NOTE | 2022-10-13 09:04 | ECG_ITS ---
APPROVED REPORT Exam: Resting ECG HR:95 bpm ECG Measurements Heart Rate 95 AXES ME 157 P 39 QRSd 101 QRS 27 QT 335 T -67 QTc 388 Conclusion SINUS RHYTHM WITH SINUS ARRHYTHMIA ST DEVIATION AND MODERATE T-WAVE ABNORMALITY, CONSIDER INFERIOR ISCHEMIA [-0.1+ mV T-WAVE IN II/aVF] ABNORMAL ECG UNCONFIRMED REPORT Electronically signed by : Harsh Doss MD 10/13/2022 21:48:10
--- NOTE | 2022-10-13 09:04 | HMH.PHAINT1 ---
Pharmacy Intervention Comments: Patients home medications were reviewed for discharge: -cefuroxime(antibiotic may cause stomach issue), talked importance of completing the medication as directed - Ondansetron (used for nausea) - Rivaroxaban (risk of bleeding) Patient stated they had no further questions. -Justo Garrido, Pharm Student
--- NOTE | 2022-10-13 09:30 | P.CONPHA_ITS ---
PHA Stage Producer Discharge Med Supervisor Twisting Department: Sunday Talbot has received discharge medication counseling on the following medications: ASPIRIN 81 MG DAILY BRILINTA 90 MG BID CARVEDILOL 3.125 MG BID ENTRESTO 49 MG/51 MG BID LOVASTATIN 20 MG HS
--- NOTE | 2022-10-15 13:06 | CARE MANAGER ---
Attempted to contact patient x2 related to hospital discharge
--- NOTE | 2022-10-18 23:20 | EXP.DC.SUM ---
General Admission date:: 10/10/22 Discharge date: 10/13/22 HPI HPI HPI: Mr. Talbot is a 61-year-old male with a history of type 2 diabetes mellitus, hypertension, hyperlipidemia, gout, noncompliance, coronary artery disease, STEMI in April 2022, and congestive heart failure who was brought to the emergency room by fellow workers at [facility] due to voiding constantly.? To me he denied any type of pain with this.? He states he has just been unable to control his bladder.? He denies abdominal pain, nausea, vomiting, and diarrhea.He states he did have some chills but did not think he had a fever. With evaluation in the emergency room he was found to be afebrile.? White blood cell count was 17,200.? Urinalysis did show urinary tract infection.? Lactate was elevated at 2.2.? BUN was 17 and creatinine 1.4.? He received a liter of IV fluids and was started on Rocephin IV.? He was given ketorolac 15 mg IV once and Zofran 4 mg IV once.? Patient met the criteria for SIRS and was thus admitted. CT of the abdominal and pelvis with impression of no acute findings and moderate to moderately large colonic stool burden This a.m. with evaluation patient denies any nausea or vomiting.? He denies abdominal pain.? He states his voiding frequency has decreased.? He has been able to eat breakfast. He has had a low-grade temperature of 99.1.? He has been tachycardic.? Repeat labs this morning show white count of 14,000.? BUN is 20 and creatinine has decreased to 1.3.? Blood sugar 61 this morning.? C-reactive protein is elevated at 239.? Urine culture showing gram-negative rods with pending blood culture results. Hospital Course Hospital Course Hospital Course: Patient was admitted and started on IV Rocephin. He was also started on IV fluids. He was seen in consultation by podiatry. Podiatry reviewed the patient's imaging and examined the right lateral foot wound. The nails were debrided and cardiology was consulted for abnormal ALVARO/runoff. The patient was taken to the [facility] and was found to have severe to critical disease in the right PT trunk which extended back in the right popliteal artery and the distal right SFA. Successful intravascular lithotripsy to the PT trunk and popliteal artery was performed. Successful drug-coated balloon angioplasty to the right PT trunk, right popliteal artery, and right superficial femoral artery was performed. Successful self-expanding stent deployment to the right PT trunk, right popliteal artery, right superficial femoral artery was performed. The patient was to remain on aspirin and Plavix. Dr. Trujillo did not feel there was active osteomyelitis, cellulitis, or abscess in the foot. She did not think any surgery would be warranted. His urine culture came back positive for E. coli with anthony sensitivity. The patient did have some vomiting but was able to eat. He denied any pain after his vascular procedure. It was felt he was stable to discharge home on cefuroxime for his UTI and Xarelto will be added for PAD. Exam Data for Last 24 hours Vital signs and Labs for Last 24 Hours: Temp Pulse Resp BP Pulse Ox 98.3 F 85 18 150/96 H 96 10/13/22 07:23 10/13/22 07:23 10/13/22 07:23 10/13/22 07:23 10/13/22 07:23 Narrative: Constitutional Constitutional: no acute distress *Routine HEENT Exam Head: Present normocephalic and atraumatic Eye: Present PERRL; Absent conjunctival icterus, scleral injection or conjunctivae pink ENT: Present mucous membranes moist and oropharynx clear *Routine Neck Exam Neck: Present supple and full ROM; Absent carotid bruit, lymphadenopathy or thyromegaly *Routine Respiratory Exam Respiratory: Present CTA bilaterally (Anteriorly and posteriorly) *Routine Cardiovascular Exam Cardiovascular: Present RRR *Routine Abdominal Exam Abdominal: Present soft and normoactive bowel sounds; Absent tenderness or distended *Routine Rectal Exam Rectal:: deferred *Routine Genitalia Exam Genitalia::
== END 2022-10-13 11:20 | disposition home or self-care (01) | DRG 854 ==
LOC: ER 18:49 → 2ND 20:41
PROVIDERS: Internal Medicine; Nurse Practitioner Family; Podiatrist; Admitting Provider Family Medicine; Emergency Provider Emergency Medicine; PCP Family Medicine; Visit Provider Family Medicine
PROC: 04FM3ZZ Fragmentation of Right Popliteal Artery, Percutaneous Approach (ICD-10-PCS; principal; 2022-10-12 13:00)
DX: A41.9 Sepsis, unspecified organism (principal); N17.9 Acute kidney failure, unspecified; N39.0 Urinary tract infection, site not specified; I25.2 Old myocardial infarction; I11.0 Hypertensive heart disease with heart failure; I50.9 Heart failure, unspecified; I70.213 Atherosclerosis of native arteries of extremities with intermittent claudication, bilateral legs; M19.071 Primary osteoarthritis, right ankle and foot; B35.1 Tinea unguium; Z95.5 Presence of coronary angioplasty implant and graft; I25.5 Ischemic cardiomyopathy; E11.51 Type 2 diabetes mellitus with diabetic peripheral angiopathy without gangrene; I25.10 Atherosclerotic heart disease of native coronary artery without angina pectoris; Z91.199 Patient's noncompliance with other medical treatment and regimen due to unspecified reason
CPT/HCPCS: 36415; 37226; 73630; 74176; 80048; 80053; 81001; 82962; 83605; 84145; 85007; 85025; 85347; 85651; 86140; 87040; 87086; 87088; 87186; 87636; 93005; 93923; 99152; 99153; 99285; C1725; C1760; C1766; C1769; C1876; C1894; C2623; C9773; C9803; J0696; J1644; J2405; Q9966; U0003; U0005

== ENCOUNTER 2023-07-19 16:47 | Emergency (ER) | payer OTHER, SELFPAY ==
[2023-07-19 17:00] VITALS: BP 117/78; PULSE 91; RESP 18; TEMP 36.8; O2SAT 98; BMI 32.0
--- NOTE | 2023-07-19 17:19 | EXP.UTC ---
Discharge Plan Disposition Patient Disposition: Home, Self-Care Condition: Good Prescriptions Prescriptions: New clindamycin HCl 300 mg capsule 300 mg PO Q8H 10 Days Qty: 30 0RF mupirocin 2 % ointment 1 applic topical TID 10 Days Qty: 22 0RF No Action metformin 500 mg tablet 500 mg PO BIDWMEAL ertugliflozin 5 mg tablet 5 mg PO DAILY Patient Comments: TAKE 1 TABLET BY MOUTH ONCE DAILY IN THE MORNING lovastatin 20 mg tablet 20 mg PO DAILY atorvastatin 40 mg tablet 40 mg PO DAILY Qty: 30 3RF clopidogrel [Plavix] 75 mg tablet 75 mg PO DAILY Qty: 90 3RF carvedilol 3.125 mg tablet 6.25 mg PO BID Qty: 120 5RF Entresto 49-51 mg tablet See Rx Instructions .ROUTE .COMPLEX Qty: 180 1RF Dose Instruction: Take 1 tablet by mouth twice daily Rx Instructions: Take 1 tablet by mouth twice daily glimepiride 4 tablet 2 mg PO DAILY allopurinol 300 tablet 300 mg PO DAILY Verquvo 10 mg tablet 10 mg PO DAILY Xarelto 2.5 mg tablet 2.5 mg PO BID Qty: 60 0RF Referrals Follow up/Referrals: Willy Grissom MD [Primary Care Provider] - See instructions Activity Restrictions/Add. Instructions Additional Instructions/Restrictions: Clean wound with antibacterial soap and water Apply topical medication to wound on right lower leg Take oral antibiotics as prescribed Follow up with your Family Doctor to monitor wound on your right lower leg Straight to ER if any life threatening symptoms Watch wound for signs of worsening infection including but not limited too swelling, warmth spreading of redness streaks etc Clinical Impressions Clinical Impression: Leg wound, right Stand Alone Forms Stand Alone Forms: Work/School Release Instructions Patient Instructions: DI for Wound Infection, Clindamycin Discharge ED Provider: Kaylen Samaniego [facility] HPI General Stated complaint: vomiting,, spot on leg Mode of Arrival: Ambulatory Source of Information: Patient Limitations: No Limitations Time Seen by Provider: 07/19/23 17:20 Description of Symptoms (Recalled from Triage Doc. by RN): Pt vomitted at work and needs to be checked out to go back to work. HEENT Symptoms (Recalled from RN notes): Yes Resp Symptoms (Recalled from RN notes): No Skin Symptoms (Recalled from RN notes): No MS Symptoms (Recalled from RN notes): No Functional Status (Recalled from RN notes): n/.a History of Present Illness Provider Complaint: Patient states that he eat chili from [employer] last night and made him sick at his stomach and he vomited x 1 not had any vomiting or nausea since, states that he didnt go to work today and needs a work note, then he said he has a sore on his right lower leg for several days that he has been putting a bandaid on it and thinks it may be getting infected because he is a diabetic Denies fever, denies chills Related Data Home Medications Medication Instructions Recorded Confirmed allopurinol 300 mg tablet 300 mg PO DAILY gout 11/29/17 07/19/23 glimepiride 4 mg tablet 2 mg PO DAILY Diabetes 11/29/17 07/19/23 ertugliflozin 5 mg tablet 5 mg PO DAILY Diabetes 07/29/20 07/19/23 metformin 500 mg tablet 500 mg PO BIDWMEAL Diabetes 07/29/20 07/19/23 vericiguat 10 mg tablet (Verquvo) 10 mg PO DAILY Heart failure 10/11/22 07/19/23 lovastatin 20 mg tablet 20 mg PO DAILY 04/27/23 07/19/23 Previous Rx's Medication Instructions Recorded atorvastatin 40 mg tablet 40 mg PO DAILY #30 tabs 10/13/22 carvedilol 3.125 mg tablet 6.25 mg (2 x 3.125 mg) PO BID 10/13/22 Hypertension #120 tabs clopidogrel 75 mg tablet (Plavix) 75 mg PO DAILY #90 tabs 10/13/22 rivaroxaban 2.5 mg tablet (Xarelto) 2.5 mg PO BID #60 tabs 10/13/22 sacubitril 49 mg-valsartan 51 mg See Rx Instructions .Route 10/18/22 tablet (Entresto) .COMPLEX #180 tabs clindamycin HCl 300 mg capsule 300 mg PO Q8H 10 days #30 caps 07/19/23 mupirocin 2 % topical ointment 1 applic topical TID 10 days #22 07/19/23 grams Allergies Allergy/AdvReac Type Severity Reaction Status Date / Time No Known Allergies Allergy Verified 07/19/23 17:17 Worker's Comp Is this a Worker's Comp case?: No [facility] Disclaimer: The information contained in this section may have been updated after the patient was seen, as this information can be updated by other users. Medical History Abrasion of foot, right Acquired metatarsus varus Blister of foot without infection Coronary artery disease COVID-19 Diabetes mellitus, type 2 Fracture of fourth metatarsal bone of right foot Gout Hyperlipidemia Hypertension Immunization due Ischemic cardiomyopathy LV dysfunction Onychodystrophy Onychomycosis Vaccine counseling Surgical History History of cardiac cath History of tonsillectomy Hx of heart artery stent x5 S/P coronary artery stent placement Family History Other Coronary artery disease Diabetes Hyperlipidemia Social History Smoking Status: Never smoker alcohol intake: never current occupational status: employed Travel in the last 8 weeks: None ROS Obtained: Yes All systems reviewed & no additional complaints except as documented and Yes Systems reviewed as appropriate & no additional complaints except as documented Constitutional Constitutional: Reports system reviewed and no additional complaints, except as documented and Reports as per HPI ENT Ears, Nose, Mouth, and Throat: Reports system reviewed and no additional complaints, except as documented and Reports as per HPI Gastrointestinal Gastrointestingal: Reports system reviewed and no additional complaints, except as documented and as per HPI Genitourinary Male Genitourinary: Reports system reviewed and no additional complaints, except as documented and Reports as per HPI Musculoskeletal Musculoskeletal: Reports system reviewed and no additional complaints, except as documented and Reports as per HPI Integumentary/Breasts Skin/Breast: Reports system reviewed and no additional complaints, except as documented and Reports as per HPI Comments: sore on his right lower leg Physical Exam General General appearance: alert and in no apparent distress ENT ENT exam: Present mucous membranes moist Respiratory Respiratory exam: Present normal lung sounds bilaterally; Absent respiratory distress or wheezes Cardiovascular Cardiovascular exam: Present regular rate, normal rhythm and normal heart sounds Neurological Exam Neurological exam: Present alert, oriented X3 and normal gait Expanded Skin Exam Body image: 1. small open wound noted with mild surrounding redness, no swelling noted at this time Medical Decision Making James Inquiry Pt receiving controlled substance: No James was queried for this patient: No Vital Signs: 07/19/23 17:00 Temperature 98.3 F Temperature Source Oral Pulse Rate [Right Radial] 91 H Respiratory Rate 18 Blood Pressure [Right Arm] 117/78 Blood Pressure Mean [Right Arm] 91 Blood Pressure Source [Right Arm] Automatic Cuff Blood Pressure Position [Right Arm] Sitting 02 Sat by Pulse Oximetry 98 Oxygen Delivery Method Room Air Medical Decision Narrative: Medication discussed with pharmacy
[2023-07-19 17:44] VITALS: BP 117/78; PULSE 91; RESP 18; TEMP 36.8; O2SAT 98
== END 2023-07-19 17:44 | disposition home or self-care (01) ==
PROVIDERS: Emergency Provider Nurse Practitioner; PCP Family Medicine
DX: S81.801A Unspecified open wound, right lower leg, initial encounter (principal); R11.2 Nausea with vomiting, unspecified; E11.9 Type 2 diabetes mellitus without complications; I11.9 Hypertensive heart disease without heart failure; I25.10 Atherosclerotic heart disease of native coronary artery without angina pectoris; E78.5 Hyperlipidemia, unspecified; Z95.5 Presence of coronary angioplasty implant and graft; X58.XXXA Exposure to other specified factors, initial encounter
CPT/HCPCS: 99204; 99212; G0463

== ENCOUNTER 2023-11-07 09:11 | Outpatient (CLI) | payer OTHER, SELFPAY ==
[2023-11-07 10:05] LABS: Basophils # 0.2 K/mm3 (0-0.2); Basophils % 2.3 % (0.1-2.0); Eosinophils # 0.2 K/mm3 (0.0-0.4); Eosinophils % 3.3 % (0.1-12.0); Hematocrit 46.7 % (42.0-52.0); Hemoglobin 15.5 g/dL (14.1-18.0); Lymphocytes # 1.2 K/mm3 (0.7-4.5); Lymphocytes % 18.7 % (10-50); Mean Corpuscular HGB Conc 33.2 g/dL (31.8-35.4); Mean Corpuscular Hemoglobin 32.3 pg (27.0-31.2); Mean Corpuscular Volume 97.4 fl (80-94); Mean Platelet Volume 7.6 fl (7.4-10.4); Monocytes # 0.4 K/mm3 (0.1-1.0); Neutrophils # 4.6 K/mm3 (1.8-7.8); Neutrophils % 69.8 % (37.0-80.0); Platelet Count 216 K/mm3 (142-424); Red Blood Count 4.79 M/mm3 (4.60-6.20); Red Cell Distribution Width 14.8 % (11.5-17.5); White Blood Count 6.6 K/mm3 (4.8-10.8)
[2023-11-07 10:33] LABS: Alanine Aminotransferase 14 U/L (12-78); Albumin Level 4.1 g/dl (3.5-5.0); Alkaline Phosphatase 112 U/L (38-126); Aspartate Amino Transferase 21 U/L (17-59); Bilirubin,Indirect 0.8 mg/dL (0.0-0.9); Bilirubin,Total 0.8 mg/dl (0.2-1.3); Bilirubin,Unconjugated 0.9 mg/dL (0.0-1.1); Blood Urea Nitrogen 15 mg/dl (9-20); Calcium 9.9 mg/dl (8.4-10.2); Carbon Dioxide 28 mmol/L (22.0-30.0); Chloride 105 mmol/L (98-107); Chol/HDL Ratio 6.1 (1-3.5); Cholesterol 195 mg/dl (140-200); Estimated Glomerular Filt Rate 76 ml/min (>60); GFR (African American) 92 ML/MIN (>60); Glucose 118 mg/dl (74-100); HDL Cholesterol 32 mg/dl (40-60); Sodium 139 mmol/L (136-145); Total Protein,Serum 6.3 g/dl (6.3-8.2)
[2023-11-07 10:38] LABS: Triglycerides 454 mg/dl (30-150)
[2023-11-07 10:44] LABS: Direct LDL Cholesterol 90.77 mg/dL (100-129)
== END 2023-11-07 23:59 | disposition home or self-care (01) ==
LOC: LAB 09:12
PROVIDERS: PCP Family Medicine; Visit Provider Nurse Practitioner
DX: I73.9 Peripheral vascular disease, unspecified (principal); I51.9 Heart disease, unspecified; I25.5 Ischemic cardiomyopathy; I25.10 Atherosclerotic heart disease of native coronary artery without angina pectoris; I50.21 Acute systolic (congestive) heart failure; I10 Essential (primary) hypertension; E11.9 Type 2 diabetes mellitus without complications; E78.5 Hyperlipidemia, unspecified; R06.00 Dyspnea, unspecified
CPT/HCPCS: 36415; 80048; 80061; 80076; 85025

== ENCOUNTER 2023-12-13 06:36 | Outpatient (CLI) | payer OTHER, SELFPAY ==
--- NOTE | 2023-12-13 06:41 | NM_ITS ---
APPROVED REPORT Exam: Nuclear Stress Test Indication: SOB, Abnormal EKG, HTN, DM, High cholesterol, CAD, Hx of NH Patient Location: Outpatient Stress Tech: Tita Morris [place] Tech:Elda Ivan, ARRT, RT (R)(N) Ht: 5 ft 10 in Wt: 210 lbs HR: 76 bpm BP: 171/98 mmHg BSA: 2.13 m2 Rhythm: NSR TID: 1.09 BMI: 30.1 History: SOB, Abnormal EKG, HTN, DM, High cholesterol, CAD, Hx of NH Procedure: Patient received 0.4 mg of intravenous Lexiscan, resting heart rate 76 bpm, resting blood pressure 171/98 mmHg, with Lexiscan maximum heart rate achieved was 87 bpm which is % of the maximum predicted heart rate and blood pressure was 171/98 mmHg. With Lexiscan, patient denied any complaint of chest pain. Cardiac Stress and Resting SPECT Images: Cardiac Stress and Resting SPECT images were obtained using technetium 99m Myoview 30.8 mCi stress and 10.56 mCi at rest. Resting and stress imaging in supine and prone positions demonstrate a large-sized, moderate, partially reversible perfusion defect in the inferior, lateral, and inferolateral LV sargent. Gated imaging demonstrates moderate reduction in global LV systolic function. There is severe hypokinesis of the inferior and lateral LV sargent. LVEF is calculated 38%. Conclusion: Large-sized, moderate, partially reversible perfusion defect in the inferior, lateral, and inferolateral LV sargent. Findings are suggestive of partial reversible ischemia. Gated imaging demonstrates moderate reduction in global LV systolic function. There is severe hypokinesis of the inferior and lateral LV sargent. LVEF is calculated 38%. Electronically signed by : Padmini Martínez MD 12/15/2023 17:30:41
[2023-12-13] MEDS: ISOTOPE MYOVIEW (PER STUDY) 1 DOSE IV (09:19)
[2023-12-13] MEDS: REGADENOSON 0.4MG/5ML SYRINGE 0.4 MG IV (09:19)
[2023-12-13] MEDS: SODIUM CHLORIDE 0.9% 10ML SYR (RAD ONLY) 10 ML IV ×2 (09:19)
--- NOTE | 2023-12-13 09:38 | CA_ITS ---
APPROVED REPORT Exam: Pharmacologic Technologist: Tita Morris Ht: 5 ft 10 in Wt: 212 lbs BSA: 2.14 m2 HR: 72 bpm BP: 171/98 mmHg Indications: Dyspnea Medical History Medications: Lovastatin,,,,, Metformin,,,,, Allopurinol,,,,, Atorvastatin,,,,, Carvedilol,,,,, XaRELTO,,,,, Plavix,,,,, EnTRESTO,,,,, Verquvo,,,,, Stress Test Details Test: LEXISCAN HR Resting HR: 76 bpm Max Heart Rate (APMHR): 159 bpm Max HR Achieved: 87 bpm Target HR (85% APMHR): 135 bpm % of APMHR: 55 Recovery HR: 80 bpm BP Resting BP: 171.0/98.0 mmHg Max BP: 171.0/98.0 mmHg Recovery BP: 169.0/100.0 mmHg ECG Resting ECG: NSR, T-wave changes Stress ECG: No significant ST changes Arrhythmia: PVCs Clinical Exercise duration: 04:00 min Highest Stage Achieved: Exercise capacity: 1.0 METs Stress ECG Conclusion Symptoms: Dyspnea Arrhythmias/Ectopy: PVCs ST-T Changes: No significant ST changes Conclusion: Baseline ECG abnormalities. Unremakable ECG portion of Lexiscan study. Myoview images reported separately. Test Summary REST . . . . . . . Resting REST 02:35 . . 76 . 171/ 98 . . Stage 1 . . . . . . . Myoview Injected Stage 1 01:00 . . 82 . . . . Stage 2 01:00 . . 80 . 167/ 93 . . Stage 3 01:00 . . 79 . . . . Stage 4 01:00 . . 81 . 169/100 . Stop exercise at 04:00 RECOVERY 01:00 . . 82 . 165/ 91 . . RECOVERY 02:00 . . 78 . 165/ 91 . . RECOVERY 03:00 . . 80 . 165/102 . . RECOVERY 04:00 . . 80 . 169/100 . . RECOVERY 04:15 . . 78 . 169/100 . . Electronically signed by : Padmini Martínez MD 12/15/2023 17:27:33
== END 2023-12-13 23:59 | disposition home or self-care (01) ==
LOC: RAD 06:37
PROVIDERS: PCP Family Medicine; Visit Provider Nurse Practitioner
DX: R06.00 Dyspnea, unspecified (principal); R94.31 Abnormal electrocardiogram [ECG] [EKG]; I25.10 Atherosclerotic heart disease of native coronary artery without angina pectoris
CPT/HCPCS: 78452; 93017; 93018; A9502; J2785

== ENCOUNTER 2024-01-30 14:16 | Emergency (ER) | payer OTHER, SELFPAY ==
[2024-01-30] VITALS (9 sets, daily range): BP systolic 113–157; BP diastolic 79–99; PULSE 84–107; RESP 18–20; TEMP 36.7; O2SAT 95–99; BMI 30.4
--- NOTE | 2024-01-30 14:12 | HMH.EDGENADL ---
Discharge Plan Disposition Patient Disposition: Home, Self-Care Condition: Good Prescriptions Prescriptions: New ondansetron 4 mg tablet,disintegrating 4 mg PO Q6H PRN (Reason: nausea and vomiting) Qty: 10 0RF sulfamethoxazole-trimethoprim [Bactrim DS] 800-160 mg tablet 1 tab PO BID 5 Days Qty: 10 0RF No Action omeprazole 40 mg capsule,delayed release(DR/EC) 40 mg PO DAILY Patient Comments: TAKE 1 CAPSULE BY MOUTH ONCE DAILY 30 MINUTES BEFORE MORNING MEAL glimepiride 4 mg tablet 2 mg PO DAILY Patient Comments: TAKE 1/2 (ONE-HALF) TABLET BY MOUTH ONCE DAILY FOR 90 DAYS metformin 500 mg tablet 500 mg PO BIDWMEAL lovastatin 20 mg tablet 20 mg PO DAILY atorvastatin 40 mg tablet 40 mg PO DAILY Qty: 30 3RF clopidogrel [Plavix] 75 mg tablet 75 mg PO DAILY Qty: 90 3RF carvedilol 3.125 mg tablet 6.25 mg PO BID Qty: 120 5RF Entresto 49-51 mg tablet See Rx Instructions .ROUTE .COMPLEX Qty: 180 1RF Dose Instruction: Take 1 tablet by mouth twice daily Rx Instructions: Take 1 tablet by mouth twice daily allopurinol 300 tablet 300 mg PO DAILY Verquvo 10 mg tablet 10 mg PO DAILY Xarelto 2.5 mg tablet 2.5 mg PO BID Qty: 60 0RF clindamycin HCl 300 mg capsule 300 mg PO Q8H 10 Days Qty: 30 0RF Referrals Follow up/Referrals: Willy Grissom MD [Primary Care Provider] - See instructions Activity Restrictions/Add. Instructions Additional Instructions/Restrictions: Please follow-up with Dr. Koo and call to make an appointment in the morning. Please follow-up with your PCP within 48 hours. Return to ER for any worsening signs or symptoms as needed. Clinical Impressions Clinical Impression: Nausea vomiting and diarrhea Cellulitis Qualifiers: Site of cellulitis: extremity Site of cellulitis of extremity: lower extremity Laterality: right Qualified Code(s): L03.115 - Cellulitis of right lower limb Stand Alone Forms Stand Alone Forms: Work/School Release Instructions Patient Instructions: DI for Diarrhea and Traveler's Diarrhea -- Adult, DI for Nausea -- Adult Print Language Print Language: Greek Discharge ED Provider: Stewart Mittal General Adult HPI <SUDARSHAN Urbina - Last Filed: 01/30/24 21:24> General Chief complaint: Nausea/Vomiting/Diarrhea Stated complaint: Nausea Time Seen by Provider: 01/30/24 14:16 History of Present Illness HPI narrative: Patient presents for evaluation of nausea vomiting diarrhea. Patient has not felt well since Tuesday for starting with increased urination followed by nausea vomiting and diarrhea. He works at [employer] and shows up to work every day and when he did not show up today [employer] called to have EMS do a welfare check. He was found at home awake and alert but I do not know what his functional baseline is. Patient is a slightly difficult historian due to that. He reports nausea vomiting and diarrhea but denies abdominal pain chest pain shortness of breath fever chills hemoptysis hematochezia melena hematemesis hematuria. Related Data Home Medications ?Medication ?Instructions ?Recorded ?Confirmed allopurinol 300 mg tablet 300 mg PO DAILY gout 11/29/17 01/23/24 metformin 500 mg tablet 500 mg PO BIDWMEAL Diabetes 07/29/20 01/23/24 vericiguat 10 mg tablet (Verquvo) 10 mg PO DAILY Heart failure 10/11/22 01/23/24 lovastatin 20 mg tablet 20 mg PO DAILY 04/27/23 01/23/24 glimepiride 4 mg tablet 2 mg PO DAILY 01/23/24 01/23/24 omeprazole 40 mg capsule,delayed 40 mg PO DAILY 01/23/24 01/23/24 release Previous Rx's ?Medication ?Instructions ?Recorded atorvastatin 40 mg tablet 40 mg PO DAILY #30 tabs 10/13/22 carvedilol 3.125 mg tablet 6.25 mg (2 x 3.125 mg) PO BID 10/13/22 Hypertension #120 tabs clopidogrel 75 mg tablet (Plavix) 75 mg PO DAILY #90 tabs 10/13/22 rivaroxaban 2.5 mg tablet (Xarelto) 2.5 mg PO BID #60 tabs 10/13/22 sacubitril 49 mg-valsartan 51 mg See Rx Instructions .Route 10/18/22 tablet (Entresto) .COMPLEX #180 tabs clindamycin HCl 300 mg capsule 300 mg PO Q8H 10 days #30 caps 07/19/23 ondansetron 4 mg disintegrating 4 mg PO Q6H PRN nausea and 01/30/24 tablet vomiting #10 tabs sulfamethoxazole 800 1 tab PO BID 5 days #10 tabs 01/30/24 mg-trimethoprim 160 mg tablet (Bactrim DS) Allergies Allergy/AdvReac Type Severity Reaction Status Date / Time No Known Allergies Allergy Verified 01/23/24 08:53 PFS <SUDARSHAN Urbina - Last Filed: 01/30/24 21:24> [facility] Disclaimer: The information contained in this section may have been updated after the patient was seen, as this information can be updated by other users. Medical History Abnormal ECG Dyspnea LV dysfunction Ischemic cardiomyopathy Coronary artery disease COVID-19 Gout Hypertension Hyperlipidemia Diabetes mellitus, type 2 Onychomycosis Onychodystrophy Acquired metatarsus varus Abrasion of foot, right Fracture of fourth metatarsal bone of right foot Vaccine counseling Immunization due Blister of foot without infection Surgical History Hx of heart artery stent x5 History of cardiac cath S/P coronary artery stent placement History of tonsillectomy Family History Other Coronary artery disease Diabetes Hyperlipidemia Social History Smoking Status: Never smoker alcohol intake: never current occupational status: employed Travel in the last 8 weeks: None Other Medical History Have you received the Flu Vaccine for this season: No Have you received the Pneumonia Vaccine: No <SUDARSHAN Urbina - Last Filed: 01/30/24 21:24> ROS Obtained: Yes Systems reviewed as appropriate & no additional complaints except as documented Physical Exam <SUDARSHAN Urbina - Last Filed: 01/30/24 21:24> General General appearance: alert and in no apparent distress Respiratory Respiratory exam: Present normal lung sounds bilaterally Cardiovascular Cardiovascular exam: Present tachycardia Neurological Exam Neurological exam: Present alert and oriented X3 Medical Decision Making <SUDARSHAN Urbina - Last Filed: 01/30/24 21:24> Medical Records Medical records reviewed: Yes I reviewed the patient's medical records. Screening: Per USPSTF and CDC recommendations, given the prevalence of disease in our region, it is our hospital?s policy to screen for HIV and viral Hepatitis for all patients aged 18 and over and those with ongoing risk factors. James Inquiry Pt receiving controlled substance: No Vital Signs: 01/30/24 14:13 01/30/24 15:00 01/30/24 15:30 Temperature 98.0 F Temperature Source Oral Pulse Rate 103 H 101 H Pulse Rate [Right Brachial] 107 H Respiratory Rate 20 Blood Pressure 157/98 H 153/99 H Blood Pressure [Right Arm] 136/87 Blood Pressure Mean [Right Arm] 103 Blood Pressure Source Blood Pressure Source [Right Arm] Automatic Cuff Blood Pressure Position [Right Arm] Supine 02 Sat by Pulse Oximetry 95 98 99 Oxygen Delivery Method Room Air Room Air Room Air 01/30/24 16:30 01/30/24 17:00 01/30/24 17:30 Temperature Temperature Source Pulse Rate 99 H 101 H 96 H Pulse Rate [Right Brachial] Respiratory Rate Blood Pressure 145/94 H 145/93 H 126/87 Blood Pressure [Right Arm] Blood Pressure Mean [Right Arm] Blood Pressure Source Blood Pressure Source [Right Arm] Blood Pressure Position [Right Arm] 02 Sat by Pulse Oximetry 96 96 98 Oxygen Delivery Method Room Air Room Air Room Air 01/30/24 18:00 01/30/24 18:30 01/30/24 19:10 Temperature 98.0 F Temperature Source Oral Pulse Rate 84 90 84 Pulse Rate [Right Brachial] Respiratory Rate 18 Blood Pressure 135/84 135/92 H 113/79 Blood Pressure [Right Arm] Blood Pressure Mean [Right Arm] Blood Pressure Source Automatic Cuff Blood Pressure Source [Right Arm] Blood Pressure Position [Right Arm] 02 Sat by Pulse Oximetry 98 95 Oxygen Delivery Method Room Air Room Air Room Air Lab Data Lab results reviewed: Yes I reviewed the patient's lab results. Lab Results 01/30/24 14:12: WBC 13.9 H, RBC 5.01, Hgb 16.1, Hct 48.0, MCV 95.8 H, MCH 32.0 H, MCHC 33.4, RDW 14.0, Plt Count 210, MPV 7.5, Neut % (Auto) 89.7 H, Lymph % (Auto) 5.3 L, [place] % (Auto) 4.2, Eos % (Auto) 0.5, Baso % (Auto) 0.2, Neut # (Auto) 12.5 H, Lymph # (Auto) 0.8, [place] # (Auto) 0.6, Eos # (Auto) 0.1, Baso # (Auto) 0.0, Total Counted 100, Neutrophils % (Manual) 86 H, Band Neutrophils % 4.0, Lymphocytes % (Manual) 7 L, Monocytes % (Manual) 3, Platelet Estimate Normal, Anisocytosis 1+, Macrocytosis 1+, Sodium 136, Potassium 4.0, Chloride 100, Carbon Dioxide 27, Anion Gap 13.0, BUN 14, Creatinine 1.10, Estimated Creat Clear 96, Estimated GFR 68, Est GFR ( Amer) 82, Glucose 194 H, Lactate 2.3 H, Calcium 9.3, Magnesium 1.4 L, Total Bilirubin 0.8, AST 31, ALT 29, Alkaline Phosphatase 126, Troponin I 0.04 H, Total Protein 6.5, Albumin 3.9, Globulin 2.6, Albumin/Globulin Ratio 1.5, Lipase 46, Procalcitonin 0.273, Acetone Level None detected, SARS-CoV-2 (PCR) Not detected, HIV 1&2 Antibody Rapid Nonreactive, Influenza A Untype (PCR) Not detected, Influenza Type B (PCR) Not detected 01/30/24 16:13: Urine Color Yellow, Urine Appearance Clear, Urine pH 7.0, Ur Specific [place] 1.010, Urine Protein Negative, Urine Glucose (UA) 2+, Urine Ketones Negative, Urine Blood Negative, Urine Nitrate Negative, Urine Bilirubin Negative, Urine Urobilinogen 2.0, Ur Leukocyte Esterase Negative, Urine RBC Occasional, Urine WBC 3-5, Ur Squamous Epith Cells Occasional, Urine Bacteria Trace 01/30/24 17:45: Troponin I 0.04 H 01/30/24 18:44: Lactate 1.7 01/30/24 14:12 01/30/24 14:12 Orders (Tests/Meds): ED MEDICATIONS Discontinued Medications Generic Name Dose Route Start Last Admin Trade Name Freq PRN Reason Stop Dose Admin Aspirin 325 mg 01/30/24 16:48 01/30/24 17:05 Aspirin 325mg Tablet PO 01/30/24 16:49 325 mg ONCE ONE Administration Lactated Ringer's 1,000 mls @ 999 mls/hr 01/30/24 14:13 01/30/24 14:20 Lactated Ringer's 1000 Ml Bag IV 01/30/24 15:13 999 mls/hr .Q1H1M ONE Administration Magnesium Sulfate 2 gm in 50 mls @ 50 mls/hr 01/30/24 15:06 01/30/24 15:22 Magnesium Sulfate 2gm/50ml Premix IV 01/30/24 16:05 50 mls/hr ONCE ONE Administration Ondansetron HCl 4 mg 01/30/24 14:13 01/30/24 14:20 Ondansetron 4mg/2ml Vial IV 01/30/24 14:14 4 mg ONCE ONE Administration ORDERS Category Date Time Status Acetone, Serum (Rapid) Stat Lab 01/30/24 14:12 Completed CBC w/Auto Diff [Complete Blood Count Auto Diff] Stat Lab 01/30/24 14:12 Completed CMP [Comprehensive Metabolic Panel] Stat Lab 01/30/24 14:12 Completed HIV (1&2) Antibody Rapid Stat Lab 01/30/24 14:12 Completed Hep C Ab with Reflex to RNA Stat Lab 01/30/24 14:12 Received Lactic Acid Follow Up (RFLX 1) Stat Lab 01/30/24 18:44 Completed Lactic Acid Stat Lab 01/30/24 14:12 Completed Lipase Stat Lab 01/30/24 14:12 Completed Magnesium Stat Lab 01/30/24 14:12 Completed Procalcitonin Stat Lab 01/30/24 14:12 Completed Rapid PCR Covid and Flu A/B Stat Lab 01/30/24 14:12 Completed Troponin I Q3H Lab 01/30/24 17:45 Completed Troponin I Stat Lab 01/30/24 14:12 Completed UA [Urinalysis and Microscopic] Stat Lab 01/30/24 16:13 Completed Medical Decision Narrative: In summary patient is a 63-year-old male who presents to the emergency department for evaluation of nausea vomiting and diarrhea. Patient is normotensive but tachycardic at 100 negative time my exam otherwise hemodynamically stable upon arrival, afebrile. Physical exam is remarkable for a nontender abdomen with hyperactive bowel sounds, normal breath sounds normal heart sounds sinus tachycardia on the bedside monitor. Additionally patient has a couple of areas on his right lower extremity 1 on the distal anterior delcid and 1 on the lateral aspect that are superficially cellulitic with scabs but no draining pus or fluctuance differential diagnosis includes DKA versus UTI versus gastroenteritis etc. Initial workup will be conducted with hematologic labs, urinalysis, diarrhea panel with patient is able to provide 1. Initial interventions include crystalloid bolus Zofran. Initial workup reviewed by me shows that his hematologic labs show a slight leukocytosis with neutrophilic shift, hypomagnesemia and a troponin of 0.04 the remainder of his hematologic labs are nonactionable and his urinalysis is bland. Upon repeat evaluation patient had a flat delta on his troponin with repeat being 0.04 and patient is tolerant of oral intake. 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 We did have an interactive discussion with Dr. Koo who will follow him closely in clinic. <Stewart Mittal MD - Last Filed: 01/30/24 21:32> Vital Signs: 01/30/24 14:13 01/30/24 15:00 01/30/24 15:30 Temperature 98.0 F Temperature Source Oral Pulse Rate 103 H 101 H Pulse Rate [Right Brachial] 107 H Respiratory Rate 20 Blood Pressure 157/98 H 153/99 H Blood Pressure [Right Arm] 136/87 Blood Pressure Mean [Right Arm] 103 Blood Pressure Source Blood Pressure Source [Right Arm] Automatic Cuff Blood Pressure Position [Right Arm] Supine 02 Sat by Pulse Oximetry 95 98 99 Oxygen Delivery Method Room Air Room Air Room Air 01/30/24 16:30 01/30/24 17:00 01/30/24 17:30 Temperature Temperature Source Pulse Rate 99 H 101 H 96 H Pulse Rate [Right Brachial] Respiratory Rate Blood Pressure 145/94 H 145/93 H 126/87 Blood Pressure [Right Arm] Blood Pressure Mean [Right Arm] Blood Pressure Source Blood Pressure Source [Right Arm] Blood Pressure Position [Right Arm] 02 Sat by Pulse Oximetry 96 96 98 Oxygen Delivery Method Room Air Room Air Room Air 01/30/24 18:00 01/30/24 18:30 01/30/24 19:10 Temperature 98.0 F Temperature Source Oral Pulse Rate 84 90 84 Pulse Rate [Right Brachial] Respiratory Rate 18 Blood Pressure 135/84 135/92 H 113/79 Blood Pressure [Right Arm] Blood Pressure Mean [Right Arm] Blood Pressure Source Automatic Cuff Blood Pressure Source [Right Arm] Blood Pressure Position [Right Arm] 02 Sat by Pulse Oximetry 98 95 Oxygen Delivery Method Room Air Room Air Room Air Lab Data Lab Results 01/30/24 14:12: WBC 13.9 H, RBC 5.01, Hgb 16.1, Hct 48.0, MCV 95.8 H, MCH 32.0 H, MCHC 33.4, RDW 14.0, Plt Count 210, MPV 7.5, Neut % (Auto) 89.7 H, Lymph % (Auto) 5.3 L, [place] % (Auto) 4.2, Eos % (Auto) 0.5, Baso % (Auto) 0.2, Neut # (Auto) 12.5 H, Lymph # (Auto) 0.8, [place] # (Auto) 0.6, Eos # (Auto) 0.1, Baso # (Auto) 0.0, Total Counted 100, Neutrophils % (Manual) 86 H, Band Neutrophils % 4.0, Lymphocytes % (Manual) 7 L, Monocytes % (Manual) 3, Platelet Estimate Normal, Anisocytosis 1+, Macrocytosis 1+, Sodium 136, Potassium 4.0, Chloride 100, Carbon Dioxide 27, Anion Gap 13.0, BUN 14, Creatinine 1.10, Estimated Creat Clear 96, Estimated GFR 68, Est GFR ( Amer) 82, Glucose 194 H, Lactate 2.3 H, Calcium 9.3, Magnesium 1.4 L, Total Bilirubin 0.8, AST 31, ALT 29, Alkaline Phosphatase 126, Troponin I 0.04 H, Total Protein 6.5, Albumin 3.9, Globulin 2.6, Albumin/Globulin Ratio 1.5, Lipase 46, Procalcitonin 0.273, Acetone Level None detected, SARS-CoV-2 (PCR) Not detected, HIV 1&2 Antibody Rapid Nonreactive, Influenza A Untype (PCR) Not detected, Influenza Type B (PCR) Not detected 01/30/24 16:13: Urine Color Yellow, Urine Appearance Clear, Urine pH 7.0, Ur Specific [place] 1.010, Urine Protein Negative, Urine Glucose (UA) 2+, Urine Ketones Negative, Urine Blood Negative, Urine Nitrate Negative, Urine Bilirubin Negative, Urine Urobilinogen 2.0, Ur Leukocyte Esterase Negative, Urine RBC Occasional, Urine WBC 3-5, Ur Squamous Epith Cells Occasional, Urine Bacteria Trace 01/30/24 17:45: Troponin I 0.04 H 01/30/24 18:44: Lactate 1.7 Orders (Tests/Meds): ED MEDICATIONS Discontinued Medications Generic Name Dose Route Start Last Admin Trade Name Rafia PRN Reason Stop Dose Admin Aspirin 325 mg 01/30/24 16:48 01/30/24 17:05 Aspirin 325mg Tablet PO 01/30/24 16:49 325 mg ONCE ONE Administration Lactated Ringer's 1,000 mls @ 999 mls/hr 01/30/24 14:13 01/30/24 14:20 Lactated Ringer's 1000 Ml Bag IV 01/30/24 15:13 999 mls/hr .Q1H1M ONE Administration Magnesium Sulfate 2 gm in 50 mls @ 50 mls/hr 01/30/24 15:06 01/30/24 15:22 Magnesium Sulfate 2gm/50ml Premix IV 01/30/24 16:05 50 mls/hr ONCE ONE Administration Ondansetron HCl 4 mg 01/30/24 14:13 01/30/24 14:20 Ondansetron 4mg/2ml Vial IV 01/30/24 14:14 4 mg ONCE ONE Administration ORDERS Category Date Time Status Acetone, Serum (Rapid) Stat Lab 01/30/24 14:12 Completed CBC w/Auto Diff [Complete Blood Count Auto Diff] Stat Lab 01/30/24 14:12 Completed CMP [Comprehensive Metabolic Panel] Stat Lab 01/30/24 14:12 Completed HIV (1&2) Antibody Rapid Stat Lab 01/30/24 14:12 Completed Hep C Ab with Reflex to RNA Stat Lab 01/30/24 14:12 Received Lactic Acid Follow Up (RFLX 1) Stat Lab 01/30/24 18:44 Completed Lactic Acid Stat Lab 01/30/24 14:12 Completed Lipase Stat Lab 01/30/24 14:12 Completed Magnesium Stat Lab 01/30/24 14:12 Completed Procalcitonin Stat Lab 01/30/24 14:12 Completed Rapid PCR Covid and Flu A/B Stat Lab 01/30/24 14:12 Completed Troponin I Q3H Lab 01/30/24 17:45 Completed Troponin I Stat Lab 01/30/24 14:12 Completed UA [Urinalysis and Microscopic] Stat Lab 01/30/24 16:13 Completed ECG Data Tracing #1: I reviewed this ECG and interpreted as documented below: (1531: Sinus tachycardia 100 bpm with mild elevations in V2 which do did not meet criteria. Wandering baseline in inferior leads. AR 188, QRS 110, QTc 418. See interpretation of repeat EKG for more adequate interpretation) Tracing #2: I reviewed this ECG and interpreted as documented below: (Repeat EKG 1600: Sinus rhythm 99 beats a minute. AR 156, QRS 110, QTc 404. Patient has ST depressions and T wave inversions in 3 and aVF) Medical Decision Narrative: In summary patient is a 63-year-old male who presents to the emergency department for evaluation of nausea vomiting and diarrhea. Patient is normotensive but tachycardic at 100 negative time my exam otherwise hemodynamically stable upon arrival, afebrile. Physical exam is remarkable for a nontender abdomen with hyperactive bowel sounds, normal breath sounds normal heart sounds sinus tachycardia on the bedside monitor. Additionally patient has a couple of areas on his right lower extremity 1 on the distal anterior delcid and 1 on the lateral aspect that are superficially cellulitic with scabs but no draining pus or fluctuance differential diagnosis includes DKA versus UTI versus gastroenteritis etc. Initial workup will be conducted with hematologic labs, urinalysis, diarrhea panel with patient is able to provide 1. Initial interventions include crystalloid bolus Zofran. Initial workup reviewed by me shows that his hematologic labs show a slight leukocytosis with neutrophilic shift, hypomagnesemia and a troponin of 0.04 the remainder of his hematologic labs are nonactionable and his urinalysis is bland. Upon repeat evaluation patient had a flat delta on his troponin with repeat being 0.04 and patient is tolerant of oral intake. 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 We did have an interactive discussion with Dr. Koo who will follow him closely in clinic. I was consulted by the SHANTAL, and we discussed the complexity of the problems being addressed. I approved the treatment and management plan for this patient's care in the Emergency Department, thus performing a substantive portion of the medical decision making. Stewart Mittal MD Critical Care <SUDARSHAN Urbina - Last Filed: 01/30/24 21:24> Critical Care Time Critical Care Time: No
[2024-01-30] MEDS: ONDANSETRON 4MG/2ML VIAL 4 MG IV (14:20)
[2024-01-30] MEDS: LACTATED RINGERS 1000ML 1,000 ML 999 ML IV (14:20)
[2024-01-30 14:27] LABS: Coronavirus 19, PCR Not Detected (NotDetected); Influenza A, PCR Not Detected (NotDetected); Influenza B, PCR Not Detected (NotDetected)
[2024-01-30 14:33] LABS: Basophils % 0.2 % (0.1-2.0); Eosinophils # 0.1 K/mm3 (0.0-0.4); Eosinophils % 0.5 % (0.1-12.0); Hemoglobin 16.1 g/dL (14.1-18.0); Lymphocytes # 0.8 K/mm3 (0.7-4.5); Lymphocytes % 5.3 % (10-50); Mean Corpuscular HGB Conc 33.4 g/dL (31.8-35.4); Mean Corpuscular Volume 95.8 fl (80-94); Mean Platelet Volume 7.5 fl (7.4-10.4); Monocytes # 0.6 K/mm3 (0.1-1.0); Monocytes % 4.2 % (1.7-9.3); Neutrophils # 12.5 K/mm3 (1.8-7.8); Neutrophils % 89.7 % (37.0-80.0); Platelet Count 210 K/mm3 (142-424); Red Blood Count 5.01 M/mm3 (4.60-6.20); White Blood Count 13.9 K/mm3 (4.8-10.8)
[2024-01-30 14:37] LABS: MANUAL DIFFERENTIAL MANUAL DIFFERENTIAL (MANUAL DIFF)
[2024-01-30 14:40] LABS: Albumin Level 3.9 g/dl (3.5-5.0); Chloride 100 mmol/L (98-107); Sodium 136 mmol/L (136-145)
--- NOTE | 2024-01-30 14:40 | PC.NURSE ---
Pt unable to provide urine sample at this time
[2024-01-30 14:42] LABS: Alanine Aminotransferase 29 U/L (12-78); Blood Urea Nitrogen 14 mg/dl (9-20); Creatinine Clearance Estimated 96 mL/min (50-200); Estimated Glomerular Filt Rate 68 ml/min (>60); GFR (African American) 82 ML/MIN (>60)
[2024-01-30 14:43] LABS: Albumin/Globulin Ratio 1.5 (1.1-1.8); Alkaline Phosphatase 126 U/L (38-126); Aspartate Amino Transferase 31 U/L (17-59); Bilirubin,Total 0.8 mg/dl (0.2-1.3); Calcium 9.3 mg/dl (8.4-10.2); Carbon Dioxide 27 mmol/L (22.0-30.0); Globulin 2.6 g/dL (1.3-3.2); Glucose 194 mg/dl (74-100); Lipase 46 U/L (23-300); Magnesium 1.4 mg/dl (1.6-2.3); Total Protein,Serum 6.5 g/dl (6.3-8.2)
[2024-01-30] MEDS: MAGNESIUM SULFATE IN WATER 2 GM/50 ML PIGGYBACK IV (15:22)
[2024-01-30 15:28] LABS: Procalcitonin 0.273 ng/mL (0.0-2.0)
[2024-01-30 15:30] LABS: Anisocytosis 1+; Lymphocytes % 7 % (10-50); Monocytes % 3 % (2-9); Neutrophils % 86 % (42-76); Total Cells Counted 100
[2024-01-30 15:31] LABS: Macrocytosis 1+; Platelet Estimate Normal
--- NOTE | 2024-01-30 15:31 | ECG_ITS ---
APPROVED REPORT Exam: Resting ECG HR:100 bpm ECG Measurements Heart Rate 100 AXES MT 188 P 55 QRSd 110 QRS -29 QT 361 T -52 QTc 418 Conclusion Nondiagnostic EKG Sinus tachycardia Downsloping MT with pseudo ST elevation in anterior leads. Difficult to assess for reciprocal change Electronically signed by : CINDY GAMBOA, 01/30/2024 20:59:08
[2024-01-30 15:37] LABS: Troponin I 0.04 ng/ml (0.00-0.034)
--- NOTE | 2024-01-30 16:00 | ECG_ITS ---
APPROVED REPORT Exam: Resting ECG HR:99 bpm ECG Measurements Heart Rate 99 AXES UT 156 P 4 QRSd 110 QRS -30 QT 348 T -2 QTc 404 Conclusion Sinus rhythm Downsloping UT with pseudo ST elevations, upsloping ST segments Stable T wave inversions inferior leads from previous EKGs No acute ischemic change Electronically signed by : CINDY GAMBOA, 01/30/2024 20:59:58
[2024-01-30 16:18] LABS: Microscopic, Urine URINE MICROSCOPIC (MICROSCOPIC)
[2024-01-30 16:30] LABS: Appearance,Urine CLEAR (Clear); Bilirubin,Urine Negative (Negative); Blood, Urine Negative (Negative); Color,Urine YELLOW (Yellow); Glucose,Urine (UA) 2+ (Negative); Ketones,Urine Negative (Negative); Leukocyte Esterase,Urine Negative (Negative); Nitrate,Urine Negative (Negative); Protein,Urine Negative (Negative)
[2024-01-30] MEDS: ASPIRIN 325MG TABLET 325 MG PO (17:05)
[2024-01-30 17:06] LABS: Lactic Acid 2.3 mmol/L (0.7-2.1)
[2024-01-30 17:07] LABS: HIV (1&2) Antibody Rapid NONREACTIVE (NONREACTIVE)
[2024-01-30 17:18] LABS: RBC,Urine Occasional #/hpf (0-3)
[2024-01-30 17:19] LABS: Bacteria,Urine Trace /lpf; Squamous Epithelial Cell,Urine Occasional #/hpf (0-5)
[2024-01-30 18:12] LABS: Troponin I 0.04 ng/ml (0.00-0.034)
[2024-01-30 18:14] LABS: Acetone, Serum (Rapid) None Detected (None Detect)
[2024-01-30 18:22] LABS: Reflex Lactic Add Lactic Reflex
--- NOTE | 2024-01-30 18:45 | PC.NURSE ---
Spoke with a Iliana Pablo on the phone asking about this pt. I advised her I could not give that information and put her on hold. I asked pt if he was ok with me talking to her about him and he agreed that was fine. I let her know he was with us in the ER so she said she is on her way here now.
[2024-01-30 19:32] LABS: Lactic Acid Follow Up (RFLX 1) 1.7 mmol/L (0.7-2.1)
[2024-02-01 09:15] LABS: HCV Ab Non Reactive (Non Reactive)
== END 2024-01-30 19:42 | disposition home or self-care (01) ==
PROVIDERS: Physician Assistant; Student in an Organized Health Care Education/Training Program; Emergency Provider Emergency Medicine; PCP Family Medicine
DX: L03.115 Cellulitis of right lower limb (principal); R19.7 Diarrhea, unspecified; R11.2 Nausea with vomiting, unspecified; R35.0 Frequency of micturition
CPT/HCPCS: 80053; 81001; 82009; 83605; 83690; 83735; 84145; 84484; 85007; 85025; 86803; 87389; 87636; 93005; 96360; 96361; 96374; 99284; J2405; J3475; J7120

== ENCOUNTER 2024-02-08 11:32 | Observation (INO) | payer OTHER, SELFPAY ==
[2024-02-08] VITALS (23 sets, daily range): BP systolic 121–163; BP diastolic 76–108; PULSE 60–82; RESP 16–20; TEMP 36.5; O2SAT 95–100; BMI 29.7
--- NOTE | 2024-02-08 07:07 | IR_ITS ---
APPROVED REPORT Patient Location: Outpatient Senior Information Systems Architect: Marcos Brizuela, RT (R) PROCEDURES Selective coronary angiogram Drug-eluting stent deployment to the proximal to mid dominant right coronary Intravascular lithotripsy to the mid LAD Drug-eluting stent deployment to the mid and distal LAD in a contiguous manner Drug-eluting stent deployment to the proximal circumflex artery Drug-eluting stent deployment to the first obtuse marginal artery INDICATION Severe three-vessel coronary artery disease, Systolic congestive heart failure ejection fraction 38%, Patient not a surgical candidate based on open and oozing wounds on his lower extremities, Angina pectoris Informed consent was obtained prior to the procedure. COMPLICATIONS none Estimated Blood Loss: less than 10ml TECHNIQUE One percent lidocaine used to anesthetize the right anterior aspect of the wrist. The right radial artery was accessed via the Seldinger technique. A long hydrophilic 6 [place] sheath was placed in the right radial artery. 2.5 mg of Verapamil, 800 mcg of nitroglycerin, 1mg Lidocaine and 5000 U Heparin were given through the arterial sheath. The JL 3 guide catheter was used to perform selective coronary angiogram. At the end of the diagnostic angiogram therapeutic heparin was administered giving a therapeutic ACT. Patient was deemed not to be a surgical candidate because of his severe peripheral artery disease with open and infected wounds on his lower extremities. Because of this the guide catheter was placed in the right coronary artery followed by Choice PT extra-support wire placed distally. A 3.5 x 38 mm [place]ale frontier stent was deployed at 24 deana reducing the stenosis. Ultimately a 4.5 x 12 mm noncompliant balloon was deployed at 28 deana in the proximal and midportion of the stent in order to fully reduce the calcific lesion. REBECA-3 flow was present before and after the procedure within the right coronary excellent angiographic results were obtained. The guide catheter was placed in the left main artery and a Choice PT extra-support wire was placed distally in the LAD. A 2.5 x 38 mm [place]ale frontier stent was placed distally in the LAD and deployed at 20 deana. An additional 3 mm x 38 mm [place] frontier stent was deployed proximally at still overlapping at 20 deana. The balloon was advanced however it ruptured with gentle inflation. Following this multiple balloons were required and still could not reduce the calcific concentric stenosis in the mid LAD. A 3.5 x 12 mm lithotripsy balloon was then advanced deployed at 4 and then 6 deana with 120 pulsations delivered. Following this a 3.75 x 8 mm noncompliant balloon eventually reduced the concentric stenosis at 16 deana. Excellent angiograph results were obtained with REBECA-3 flow being present down the LAD before and after the procedure. An additional wire was placed into the circumflex artery and then the first obtuse marginal artery. A 3 mm x 30 mm Wale frontier stent was placed in the mid circumflex artery at 20 deana. An additional 3.5 x 22 mm Wale frontier stent was placed proximal to this and deployed at 24 deana to reduce the proximal stenosis. A 2 mm x 22 mm Bono frontier stent was then placed into the first obtuse marginal artery in a noncontiguous manner with the circumflex artery stent and then deployed at 20 deana reducing this critical stenosis to 0%. REBECA-3 flow was present down the obtuse marginal artery and circumflex artery before and after the procedure. At the end of the procedure the apparatus was removed the sheath was removed and hemostasis was achieved using TR banding patient was transferred to the postop putting in stable condition ANGIOGRAPHIC RESULTS The left main artery Normal The left anterior descending artery Has proximal 10 to 20% stenoses with mid vessel 50 and 60% concentric stenoses and a mid vessel 70% calcified concentric stenosis. Distally the LAD has 90% stenoses as the LAD wraps the apex. A large first obtuse marginal artery has proximal and mid vessel 70 to 80% stenoses. The circumflex artery Is a nondominant yet still large vessel with an ostial 60 to 70% stenosis and a mid vessel concentric 90% stenosis. The first obtuse marginal artery has proximal and mid vessel 90% stenoses. The second obtuse marginal artery is widely patent The right coronary artery Dominant vessel with stents in the proximal to mid segment. The proximal and midportion have 70% mostly eccentric in-stent restenosis. The BRISENO ventriculogram reveals Not performed The left ventricular end-diastolic pressure Not measured IMPRESSION Severe three-vessel coronary artery disease in a diabetic patient with LV dysfunction who is deemed a nonsurgical candidate based on open and infected lower extremity wounds Successful stenting of the proximal to mid circumflex artery severe disease reduced to 0% with 1 drug-eluting stent Successful intravascular lithotripsy to the mid LAD with successful stenting of the mid to distal LAD severe disease reduced to 0% with 2 contiguous drug-eluting stents Successful stenting of the proximal to mid circumflex artery severe disease reduced to 0% with 2 drug-eluting stents Successful stenting of the proximal to mid first obtuse marginal artery severe disease reduced to 0% with 1 drug-eluting stent PLAN 1. Patient requires admission overnight due to the complexity of the procedure copious contrast and multiple comorbidities. 2. Plavix plus aspirin 3. LDL less than 55 achieved with high intensity statin 4. Avoidance of tobacco products 5. Factor modification 6. Standard therapy for systolic congestive heart failure 7. Evaluate ejection fraction in 90 days to determine if the ejection fraction has improved. If it remains low, 35% or less, patient would be a candidate for AICD 8. Physical therapy Electronically signed by : Akash oKo MD 02/08/2024 11:29:17
[2024-02-08 08:33] LABS: Chloride 102 mmol/L (98-107); Sodium 137 mmol/L (136-145)
[2024-02-08 08:34] LABS: Potassium 4.5 mmoL/L (3.5-5.1)
[2024-02-08 08:35] LABS: Basophils # 0.1 K/mm3 (0-0.2); Basophils % 0.9 % (0.1-2.0); Eosinophils # 0.2 K/mm3 (0.0-0.4); Eosinophils % 3.2 % (0.1-12.0); Hematocrit 47.5 % (42.0-52.0); Hemoglobin 16.1 g/dL (14.1-18.0); Lymphocytes # 1.5 K/mm3 (0.7-4.5); Lymphocytes % 23.9 % (10-50); Mean Corpuscular HGB Conc 33.9 g/dL (31.8-35.4); Mean Corpuscular Hemoglobin 32.3 pg (27.0-31.2); Mean Corpuscular Volume 95.3 fl (80-94); Mean Platelet Volume 7.1 fl (7.4-10.4); Monocytes # 0.4 K/mm3 (0.1-1.0); Monocytes % 6.8 % (1.7-9.3); Neutrophils % 65.3 % (37.0-80.0); Platelet Count 241 K/mm3 (142-424); Red Blood Count 4.99 M/mm3 (4.60-6.20); Red Cell Distribution Width 14.1 % (11.5-17.5); White Blood Count 6.2 K/mm3 (4.8-10.8)
[2024-02-08 08:36] LABS: Blood Urea Nitrogen 13 mg/dl (9-20); Creatinine Clearance Estimated 94 mL/min (50-200); Estimated Glomerular Filt Rate 68 ml/min (>60); GFR (African American) 82 ML/MIN (>60)
[2024-02-08 08:37] LABS: Anion Gap 13.5 mEq/L (5-15); Calcium 9.6 mg/dl (8.4-10.2); Carbon Dioxide 26 mmol/L (22.0-30.0); Glucose 121 mg/dl (74-100)
[2024-02-08] MEDS: LIDOCAINE 1% 10ML MDV 20 ML IJ (09:59)
[2024-02-08] MEDS: HEPARIN 1,000 UNITS/ML 10ML VIAL (CATH LAB) 10000 UNIT IV (09:59)
[2024-02-08] MEDS: VERAPAMIL 2.5MG/ML 2ML VIAL 2.5 MG IV (09:59)
[2024-02-08] MEDS: FENTANYL 100MCG/2ML VIAL 50 MCG IV (09:59)
[2024-02-08] MEDS: MIDAZOLAM HCL 1MG/1ML 5ML VIAL 1 MG IV (09:59)
[2024-02-08] MEDS: 0.9 % SODIUM CHLORIDE 500 ML 25 ML IV (10:00)
[2024-02-08] MEDS: diphenhydrAMINE 50MG/ML VIAL 50 MG IV (10:00)
[2024-02-08] MEDS: HEPARIN 1,000 UNITS/500ML NS (CATH LAB) 3000 UNIT IV (10:00)
[2024-02-08] MEDS: NITROGLYCERIN 800MCG/8ML SYR (CATH LAB) 800 MCG IA (10:02)
[2024-02-08] MEDS: LABETALOL 20MG/4ML SYRINGE 20 MG IV (10:41)
--- NOTE | 2024-02-08 10:45 | SUR.PHASEII ---
Called [facility] pharmacy to review home medications, pt takes brilinta not plavix, and lovastatin not atorvastatin, updated med list
[2024-02-08] MEDS: ASPIRIN EC 325MG TABLET 325 MG PO (11:33)
[2024-02-08] MEDS: CLOPIDOGREL 300MG TABLET 600 MG PO (11:37)
--- NOTE | 2024-02-08 11:44 | SUR.PHASEII ---
Dr Koo stated to load pt with plavix and d/c brilinta
--- NOTE | 2024-02-08 11:50 | HMH.PHAINT1 ---
Pharmacy Intervention Comments: MEDICATION RECONCILIATION COMPLETED ON PATIENT USING EXTERNAL FILL HISTORY FROM PHARMACY. -JUAN FRANCO, GEOFFREYD
--- NOTE | 2024-02-08 12:11 | PC.NURSE ---
arrived by zbigniewer from [employer]
[2024-02-08] MEDS: IOPAMIDOL-370 (76%);100ML BOTTLE 320 ML IV (13:51)
[2024-02-08 14:03] LABS: CATHL Activated Clotting Time 305 SEC (74-125)
[2024-02-08 14:04] LABS: CATHL Activated Clotting Time > 400 SEC (74-125)
--- NOTE | 2024-02-08 16:59 | EXP.HP ---
History of Present Illness *Admission Date: 02/08/24 *Reason for visit:: post heart cath/stents *History of present illness: Mr. Talbot is a 63-year-old male with severe three-vessel coronary artery disease as well as diabetes. He was deemed a nonsurgical candidate based on open and infected lower extremity wounds. He was taken to the [facility] today and 6 stents were placed. It was felt he would require overnight admission due to the complexity of the procedures as well as copious contrast and his multiple core morbidities. [facility] Disclaimer: The information contained in this section may have been updated after the patient was seen, as this information can be updated by other users. Medical History CHF (congestive heart failure) Abnormal ECG Dyspnea LV dysfunction Ischemic cardiomyopathy Coronary artery disease COVID-19 Gout Hypertension Hyperlipidemia Diabetes mellitus, type 2 Onychomycosis Onychodystrophy Acquired metatarsus varus Abrasion of foot, right Fracture of fourth metatarsal bone of right foot Vaccine counseling Immunization due Blister of foot without infection Surgical History (Updated 02/08/24 @ 17:07 by SUDARSHAN Hernandez) S/P coronary artery stent placement Hx of heart artery stent History of cardiac cath History of tonsillectomy Family History Diabetes Coronary artery disease Hyperlipidemia Social History Smoking Status: Never smoker alcohol intake: never current occupational status: employed Travel in the last 8 weeks: None Other Medical History Have you received the Flu Vaccine for this season: No Have you received the Pneumonia Vaccine: No Review of Systems Review of Systems Review of systems:: unable to obtain Constitutional Constitutional: Denies body ache(s), Denies chills and Denies headache(s) Eyes Eyes: Denies blurry vision and Denies diplopia ENT Ears, Nose, Mouth, and Throat: Denies headache(s) and Reports vertigo *Cardiovascular Cardiovascular: Denies chest pain and Denies dyspnea *Respiratory Respiratory: Denies chest congestion, Denies cough and Denies dyspnea *Gastrointestinal Gastrointestinal: Denies abdominal pain, Denies nausea and Denies vomiting *Genitourinary Genitourinary: Denies dysuria *Musculoskeletal Musculoskeletal: Denies arthralgias *Neurologic Neurologic: Denies headache(s) and Reports vertigo Meds Home Medications and Allergies Home Medications ?Medication ?Instructions ?Recorded ?Confirmed ?Type allopurinol 300 mg tablet 300 mg PO DAILY 11/29/17 02/08/24 History metformin 500 mg tablet 500 mg PO BIDWMEAL 07/29/20 02/08/24 History vericiguat 10 mg tablet (Verquvo) 10 mg PO DAILY 10/11/22 02/08/24 History glimepiride 4 mg tablet 2 mg PO DAILY 01/23/24 02/08/24 History omeprazole 40 mg capsule,delayed 40 mg PO DAILY 01/23/24 02/08/24 History release amlodipine 5 mg tablet 5 mg PO DAILY 02/08/24 02/08/24 History aspirin 81 mg tablet,delayed 81 mg PO DAILY 30 days #30 tabs 02/08/24 Rx release carvedilol 3.125 mg tablet 3.125 mg PO BID 02/08/24 02/08/24 History clopidogrel 75 mg tablet (Plavix) 75 mg PO DAILY 30 days #90 tabs 02/08/24 Rx ertugliflozin 5 mg tablet 5 mg PO DAILY 02/08/24 02/08/24 History (Steglatro) lovastatin 20 mg tablet 20 mg PO DAILY 02/08/24 02/08/24 History rivaroxaban 2.5 mg tablet (Xarelto) 2.5 mg PO BIDWMEAL 02/08/24 02/08/24 History sacubitril 24 mg-valsartan 26 mg 1 tab PO BID 02/08/24 02/08/24 History tablet (Entresto) New Prescriptions to Start Prescriptions: aspirin Akash Koo clopidogrel [Plavix] Akash Koo Allergies Allergy/AdvReac Type Severity Reaction Status Date / Time No Known Allergies Allergy Verified 01/23/24 08:53 Exam Data for Last 24 hours Vital signs and Labs for Last 24 Hours: Temp Pulse Resp BP Pulse Ox O2 Del Method 97.7 F 62 20 152/81 H 100 Room Air 02/08/24 12:15 02/08/24 16:45 02/08/24 16:45 02/08/24 16:45 02/08/24 16:45 02/08/24 16:45 Laboratory Results - last 24 hr 02/08/24 08:20: WBC 6.2, RBC 4.99, Hgb 16.1, Hct 47.5, MCV 95.3 H, MCH 32.3 H, MCHC 33.9, RDW 14.1, Plt Count 241, MPV 7.1 L, Neut % (Auto) 65.3, Lymph % (Auto) 23.9, [place] % (Auto) 6.8, Eos % (Auto) 3.2, Baso % (Auto) 0.9, Neut # (Auto) 4.0, Lymph # (Auto) 1.5, [place] # (Auto) 0.4, Eos # (Auto) 0.2, Baso # (Auto) 0.1, Sodium 137, Potassium 4.5, Chloride 102, Carbon Dioxide 26, Anion Gap 13.5, BUN 13, Creatinine 1.10, Estimated Creat Clear 94, Estimated GFR 68, Est GFR ( Amer) 82, Glucose 121 H, Calcium 9.6 02/08/24 10:28: Activated Clotting Time > 400 H* 02/08/24 10:56: Activated Clotting Time 305 H* D I & O for Last 24 hours: Intake & Output 02/06/24 02/07/24 02/08/24 02/09/24 11:59 11:59 11:59 11:59 Intake Total 0 / 0 Output Total 300 / 300 Balance -300 / -300 Weight 207 lb Constitutional Constitutional: no acute distress (lethargic from procedure but able to answer some questions) *Routine HEENT Exam Head: Present normocephalic and atraumatic Eye: Present EOMI and PERRL ENT: Present mucous membranes moist *Routine Neck Exam Neck: Present supple and full ROM *Routine Respiratory Exam Respiratory: Present CTA bilaterally *Routine Cardiovascular Exam Cardiovascular: Present RRR *Routine Abdominal Exam Abdominal: Present soft and normoactive bowel sounds; Absent tenderness *Routine Rectal Exam Rectal:: deferred *Routine Genitalia Exam Genitalia:: deferred *Routine Extremities Exam Extremities: Present edema (bilateral LE's with multiple sores and excoriations); Absent cyanosis or clubbing *Routine Skin Exam Skin: Present intact, erythema (bilateral LE's) and wounds (bilateral LE's) *Routine Neurological Exam Neurological: Present alert H&P: Result Impressions Cardiac Cath IMPRESSION Severe three-vessel coronary artery disease in a diabetic patient with LV dysfunction who is deemed a nonsurgical candidate based on open and infected lower extremity wounds Successful stenting of the proximal to mid circumflex artery severe disease reduced to 0% with 1 drug-eluting stent Successful intravascular lithotripsy to the mid LAD with successful stenting of the mid to distal LAD severe disease reduced to 0% with 2 contiguous drug-eluting stents Successful stenting of the proximal to mid circumflex artery severe disease reduced to 0% with 2 drug-eluting stents Successful stenting of the proximal to mid first obtuse marginal artery severe disease reduced to 0% with 1 drug-eluting stent PLAN 1. Patient requires admission overnight due to the complexity of the procedure copious contrast and multiple comorbidities. 2. Plavix plus aspirin 3. LDL less than 55 achieved with high intensity statin 4. Avoidance of tobacco products 5. Factor modification 6. Standard therapy for systolic congestive heart failure 7. Evaluate ejection fraction in 90 days to determine if the ejection fraction has improved. If it remains low, 35% or less, patient would be a candidate for AICD 8. Physical therapy Assessment and Plan *Assessment and plan (1) S/P coronary artery stent placement: Status: Acute Category: Surgical Code(s): Z95.5 - Presence of coronary angioplasty implant and graft (2) Coronary artery disease: Status: Acute Qualifiers: Associated angina: without angina Coronary Disease-Associated Artery/Lesion type: [place] artery [place] vs. transplanted heart: [place] heart Qualified Code(s): I25.10 - Atherosclerotic heart disease of [place] coronary artery without angina pectoris Category: Medical Code(s): I25.10 - Atherosclerotic heart disease of [place] coronary artery without angina pectoris (3) Diabetes mellitus, type 2: Status: Acute Category: Medical Code(s): E11.9 - Type 2 diabetes mellitus without complications (4) PAD (peripheral artery disease): Status: Acute Category: Medical Code(s): I73.9 - Peripheral vascular disease, unspecified (5) Osteoarthritis: Status: Acute Qualifiers: Laterality: right Osteoarthritis location: foot Osteoarthritis type: primary Qualified Code(s): M19.071 - Primary osteoarthritis, right ankle and foot Category: Medical Code(s): M19.90 - Unspecified osteoarthritis, unspecified site (6) Ischemic cardiomyopathy: Status: Acute Category: Medical Code(s): I25.5 - Ischemic cardiomyopathy (7) Hypertension: Status: Chronic Qualifiers: Hypertension type: unspecified Qualified Code(s): I10 - Essential (primary) hypertension Category: Medical Code(s): I10 - Essential (primary) hypertension (8) Hyperlipidemia: Status: Chronic Qualifiers: Hyperlipidemia type: unspecified Qualified Code(s): E78.5 - Hyperlipidemia, unspecified Category: Medical Code(s): E78.5 - Hyperlipidemia, unspecified (9) LV dysfunction: Status: Acute Category: Medical Code(s): I51.9 - Heart disease, unspecified (10) Leg wound, right: Status: Acute Qualifiers: Encounter type: initial encounter Qualified Code(s): S81.801A - Unspecified open wound, right lower leg, initial encounter Category: Medical Code(s): S81.801A - Unspecified open wound, right lower leg, initial encounter Plan Patient will be admitted and will keep on telemetry overnight and will recheck labs in the am. Cardiology to follow. Dr. Grissom entry - Saw patient, agree with above note. Spoke with Dr. Koo about patient today.
--- NOTE | 2024-02-08 17:55 | PC.NURSE ---
Attempted to contact Dr. Grissom at office to ask if he wanted to resume any home meds for pt, was unable to get in contact. SUDARSHAN Almeida came to round on pt this evening, no new orders at this time.
[2024-02-08] MEDS: 0.45% NaCl w/20mEq KCL 1,000 ML 75 ML IV (18:52)
[2024-02-08] MEDS: PRAVASTATIN 20MG TAB 20 MG PO (21:25)
[2024-02-08] MEDS: CARVEDILOL 3.125MG TABLET 3.125 MG PO (21:25)
[2024-02-08] MEDS: humaLOG 100 UNITS/ML 10ML VIAL (SSI) SQ (21:38)
[2024-02-08 22:09] LABS: POC Glucose,Bedside 182 (70-110)
[2024-02-09] VITALS (7 sets, daily range): BP systolic 86–164; BP diastolic 46–102; PULSE 70–94; RESP 14–17; TEMP 36.5–36.8; O2SAT 96–100; BMI 29.6
--- NOTE | 2024-02-09 04:38 | PC.NURSE ---
Addendum entered by Deneen Whelan RN 02/09/24 06:24: Fingerstick blood glucose readings this shift were 182 (21:00) and 157 (06:00). Two units of Lispro insulin were given per sliding scale per JUN. Original Note: Patient is alert and oriented, but appeared still drowsy from post-cath procedure and sedation during the previous shift. Patient's right radial cath site, dressed with a tegaderm and gauze pads, is free of drainage, pain, and abnormal temperatures upon assessing thus far. Patient's vital signs have been stable this shift; however, blood pressures were elevated. Upon auscultation, lung sounds were clear, S1/S2 heart sounds could be heard, and bowel sounds were active. Heart rhythm has been normal sinus rhythm on telemetry this shift. Patient has been using the urinal to void at the bedside; urine output has been emptied and documented accordingly. Patient has received his scheduled medications per JUN; 0.45% NaCl w/ 20 meq KCl (1000 mL) is still infusing at 75 mL/hr. Patient was given fresh ice water. Patient was observed to have eyes closed, respirations even and unlabored on room air, and no apparent distress throughout the night. He has not had any complaints this shift. At this time, patient is resting comfortably in bed. No acute changes noted thus far. Bed alarm on. Call light within reach.
[2024-02-09 05:49] LABS: POC Glucose,Bedside 157 (70-110)
[2024-02-09] MEDS: humaLOG 100 UNITS/ML 10ML VIAL (SSI) SQ ×2 (06:09→11:21)
[2024-02-09 06:39] LABS: Basophils % 0.4 % (0.1-2.0); Eosinophils # 0.2 K/mm3 (0.0-0.4); Eosinophils % 1.9 % (0.1-12.0); Hemoglobin 15.6 g/dL (14.1-18.0); Lymphocytes # 0.5 K/mm3 (0.7-4.5); Lymphocytes % 5.8 % (10-50); Mean Corpuscular HGB Conc 33.9 g/dL (31.8-35.4); Mean Corpuscular Hemoglobin 32.5 pg (27.0-31.2); Mean Corpuscular Volume 95.7 fl (80-94); Mean Platelet Volume 7.1 fl (7.4-10.4); Monocytes # 0.5 K/mm3 (0.1-1.0); Monocytes % 5.9 % (1.7-9.3); Neutrophils % 85.9 % (37.0-80.0); Platelet Count 220 K/mm3 (142-424); Red Cell Distribution Width 14.1 % (11.5-17.5); White Blood Count 8.2 K/mm3 (4.8-10.8)
[2024-02-09 06:47] LABS: MANUAL DIFFERENTIAL MANUAL DIFFERENTIAL (MANUAL DIFF)
[2024-02-09 06:49] LABS: Chloride 103 mmol/L (98-107)
[2024-02-09 06:50] LABS: Potassium 4.5 mmoL/L (3.5-5.1); Sodium 135 mmol/L (136-145)
[2024-02-09 06:53] LABS: Anion Gap 12.5 mEq/L (5-15); Blood Urea Nitrogen 15 mg/dl (9-20); Calcium 9.2 mg/dl (8.4-10.2); Carbon Dioxide 24 mmol/L (22.0-30.0); Creatinine Clearance Estimated 94 mL/min (50-200); Estimated Glomerular Filt Rate 68 ml/min (>60); GFR (African American) 82 ML/MIN (>60); Glucose 129 mg/dl (74-100)
[2024-02-09 07:36] LABS: Albumin Level 3.8 g/dl (3.5-5.0)
[2024-02-09 07:39] LABS: Alanine Aminotransferase 16 U/L (12-78); Alkaline Phosphatase 114 U/L (38-126); Aspartate Amino Transferase 33 U/L (17-59); Bilirubin,Direct 0.2 mg/dl (0.0-0.4); Bilirubin,Indirect 0.6 mg/dL (0.0-0.9); Bilirubin,Total 0.8 mg/dl (0.2-1.3); Bilirubin,Unconjugated 0.6 mg/dL (0.0-1.1); Cholesterol 197 mg/dl (140-200); Total Protein,Serum 6.1 g/dl (6.3-8.2); Triglycerides 321 mg/dl (30-150); VLDL Cholesterol 64 mg/dL (0-40)
[2024-02-09 07:40] LABS: HDL Cholesterol 28 mg/dl (40-60)
[2024-02-09 07:51] LABS: Direct LDL Cholesterol 103.12 mg/dL (100-129)
--- NOTE | 2024-02-09 08:40 | EXP.ACUTE.PN ---
Subjective *Date: 02/09/24 *Time: 08:58 Interval history: Patient is still lethargic this am but is able to answer questions. He says he is very tired. He denies any CP or SOA. Medical Exam Vital signs and Labs for Last 24 Hours: Vital Signs Temp Pulse Pulse Resp BP BP Pulse Ox 02/09/24 07:41 97.7 F 94 H 16 118/75 97 02/09/24 06:40 02/09/24 05:00 02/09/24 04:00 94 H 02/09/24 04:00 98.1 F 85 16 132/92 H 99 02/09/24 03:00 02/09/24 01:00 02/09/24 00:00 89 02/09/24 00:00 98.0 F 90 17 164/102 H 100 02/08/24 23:00 02/08/24 21:00 02/08/24 20:00 82 02/08/24 20:00 81 17 99 02/08/24 19:49 97.7 F 81 17 163/108 H 99 02/08/24 19:00 02/08/24 18:45 78 18 131/91 H 98 02/08/24 17:45 81 20 135/79 100 02/08/24 17:00 02/08/24 16:45 62 20 152/81 H 100 02/08/24 16:00 02/08/24 16:00 60 02/08/24 15:45 60 16 125/78 99 02/08/24 15:00 02/08/24 14:45 60 16 121/76 98 02/08/24 14:15 65 20 130/97 H 98 02/08/24 13:45 70 16 144/84 H 95 02/08/24 13:15 69 18 135/81 96 02/08/24 13:00 02/08/24 12:49 70 02/08/24 12:45 66 18 129/84 97 02/08/24 12:30 68 18 142/99 H 97 02/08/24 12:15 97.7 F 66 16 133/91 H 97 02/08/24 12:00 67 18 123/79 100 02/08/24 11:45 66 18 140/94 H 99 02/08/24 11:40 70 20 148/101 H 99 02/08/24 11:36 157/99 H 02/08/24 11:35 69 20 157/99 H 100 02/08/24 11:26 78 79 20 152/100 H 97 02/08/24 10:41 160/108 H O2 Del Method 02/09/24 07:41 Room Air 02/09/24 06:40 Room Air 02/09/24 05:00 Room Air 02/09/24 04:00 02/09/24 04:00 Room Air 02/09/24 03:00 Room Air 02/09/24 01:00 Room Air 02/09/24 00:00 02/09/24 00:00 Room Air 02/08/24 23:00 Room Air 02/08/24 21:00 Room Air 02/08/24 20:00 02/08/24 20:00 Room Air 02/08/24 19:49 Room Air 02/08/24 19:00 Room Air 02/08/24 18:45 02/08/24 17:45 02/08/24 17:00 Room Air 02/08/24 16:45 Room Air 02/08/24 16:00 Room Air 02/08/24 16:00 02/08/24 15:45 Room Air 02/08/24 15:00 Room Air 02/08/24 14:45 Room Air 02/08/24 14:15 Room Air 02/08/24 13:45 Room Air 02/08/24 13:15 02/08/24 13:00 Room Air 02/08/24 12:49 02/08/24 12:45 02/08/24 12:30 Room Air, Nasal Cannula 02/08/24 12:15 Room Air 02/08/24 12:00 02/08/24 11:45 02/08/24 11:40 02/08/24 11:36 02/08/24 11:35 02/08/24 11:26 02/08/24 10:41 Intake and Output 02/08/24 02/09/24 02/09/24 19:59 03:59 11:59 Intake Total 120 / 875 515 / 875 240 / 875 Output Total 700 / 2925 1425 / 2925 800 / 2925 Balance -580 / -2050 -910 / -2050 -560 / -2050 Intake: Intake, Oral Amount 120 / 480 120 / 480 240 / 480 Infusion Intake 395 / 395 0.45% NaCl w/20mEq KCL 1,000 ml 395 / 395 @ 75 mls/hr IV .[id number] [facility] Rx #:[id number] Output: Output, Urine Amount 700 / 2925 1425 / 2925 800 / 2925 Other: Number of Unmeasured Voids 0 0 Weight 207 lb 0.013 oz Patient Weight 02/09/24 11:59 Weight 207 lb 0.013 oz Laboratory Results - last 24 hr 02/08/24 08:20: Carbon Dioxide 26, Anion Gap 13.5, BUN 13, Creatinine 1.10, Estimated Creat Clear 94, Estimated GFR 68, Est GFR ( Amer) 82, Glucose 121 H, Calcium 9.6 02/08/24 10:28: Activated Clotting Time > 400 H* 02/08/24 10:56: Activated Clotting Time 305 H* D 02/08/24 21:28: POC Glucose 182 H 02/09/24 05:32: POC Glucose 157 H 02/09/24 06:00: Total Bilirubin 0.8, Direct Bilirubin 0.2, Conjugated Bilirubin 0.0, Indirect Bilirubin 0.6, Unconjugated Bilirubin 0.6, AST 33, ALT 16, Alkaline Phosphatase 114, Total Protein 6.1 L, Albumin 3.8, Triglycerides 321 H, Cholesterol 197, LDL Cholesterol Direct 103.12, VLDL Cholesterol 64 H, HDL Cholesterol 28 L, Cholesterol/HDL Ratio 7.0 H 02/09/24 06:03: WBC 8.2 D, RBC 4.80, Hgb 15.6, Hct 46.0, MCV 95.7 H, MCH 32.5 H, MCHC 33.9, RDW 14.1, Plt Count 220, MPV 7.1 L, Neut % (Auto) 85.9 H, Lymph % (Auto) 5.8 L, [place] % (Auto) 5.9, Eos % (Auto) 1.9, Baso % (Auto) 0.4, Neut # (Auto) 7.0, Lymph # (Auto) 0.5 L, [place] # (Auto) 0.5, Eos # (Auto) 0.2, Baso # (Auto) 0.0, Sodium 135 L, Potassium 4.5, Chloride 103, Carbon Dioxide 24, Anion Gap 12.5, BUN 15, Creatinine 1.10, Estimated Creat Clear 94, Estimated GFR 68, Est GFR ( Amer) 82, Glucose 129 H, Calcium 9.2 I & O for Labs for Last 24 Hours: Intake & Output 02/06/24 02/07/24 02/08/24 02/09/24 11:59 11:59 11:59 11:59 Intake Total 875 / 875 Output Total 2925 / 2925 Balance -2049 / -2049 Weight 207 lb 207 lb 0.013 oz Constitutional: Present no acute distress Respiratory: Present CTA bilaterally Cardiac: Present Reg Rate and Rhythm GI: Present soft; Absent distention, tenderness or guarding Extremities: Present edema (bilateral LE's) Neuro: Present alert and awake Assessment and Plan *Assessment and plan (1) S/P coronary artery stent placement: Status: Acute Category: Surgical Code(s): Z95.5 - Presence of coronary angioplasty implant and graft (2) Coronary artery disease: Status: Acute Qualifiers: Associated angina: without angina Coronary Disease-Associated Artery/Lesion type: [place] artery [place] vs. transplanted heart: [place] heart Qualified Code(s): I25.10 - Atherosclerotic heart disease of [place] coronary artery without angina pectoris Category: Medical Code(s): I25.10 - Atherosclerotic heart disease of [place] coronary artery without angina pectoris (3) Diabetes mellitus, type 2: Status: Acute Category: Medical Code(s): E11.9 - Type 2 diabetes mellitus without complications (4) PAD (peripheral artery disease): Status: Acute Category: Medical Code(s): I73.9 - Peripheral vascular disease, unspecified (5) Osteoarthritis: Status: Acute Qualifiers: Laterality: right Osteoarthritis location: foot Osteoarthritis type: primary Qualified Code(s): M19.071 - Primary osteoarthritis, right ankle and foot Category: Medical Code(s): M19.90 - Unspecified osteoarthritis, unspecified site (6) Ischemic cardiomyopathy: Status: Acute Category: Medical Code(s): I25.5 - Ischemic cardiomyopathy (7) Hypertension: Status: Chronic Qualifiers: Hypertension type: unspecified Qualified Code(s): I10 - Essential (primary) hypertension Category: Medical Code(s): I10 - Essential (primary) hypertension (8) Hyperlipidemia: Status: Chronic Qualifiers: Hyperlipidemia type: unspecified Qualified Code(s): E78.5 - Hyperlipidemia, unspecified Category: Medical Code(s): E78.5 - Hyperlipidemia, unspecified (9) LV dysfunction: Status: Acute Category: Medical Code(s): I51.9 - Heart disease, unspecified (10) Leg wound, right: Status: Acute Qualifiers: Encounter type: initial encounter Qualified Code(s): S81.801A - Unspecified open wound, right lower leg, initial encounter Category: Medical Code(s): S81.801A - Unspecified open wound, right lower leg, initial encounter Plan Renal function is normal this am. Nursing will make sure he can get up and walk. Can likely discharge today. Dr. Grissom entry - Saw patient, agree with above note.
[2024-02-09 08:59] LABS: Lymphocytes % 8 % (10-50); Monocytes % 3 % (2-9); Neutrophils % 89 % (42-76); Total Cells Counted 100
[2024-02-09 09:00] LABS: Platelet Estimate Normal; RBC Morphology Normal
[2024-02-09] MEDS: CARVEDILOL 3.125MG TABLET 3.125 MG PO (09:59)
[2024-02-09] MEDS: CLOPIDOGREL 75MG TAB 75 MG PO (09:59)
[2024-02-09] MEDS: ASPIRIN EC 81MG TABLET 81 MG PO (09:59)
[2024-02-09 11:24] LABS: POC Glucose,Bedside 180 (70-110)
--- NOTE | 2024-02-09 15:05 | HMH.PTEV ---
Physical Therapy Evaluation Rehab PT IP Evaluation Start: 02/09/24 14:06 Freq: ONCE Status: Active Protocol: Document 02/09/24 14:50 FREDDIE (Rec: 02/09/24 15:05 FREDDIE [id number]) Subjective/History History History Per H&P: Mr. Talbot is a 63- year-old male with severe three-vessel coronary artery disease as well as diabetes. He was deemed a nonsurgical candidate based on open and infected lower extremity wounds. He was taken to the Jig Worker today and 6 stents were placed. It was felt he would require overnight admission due to the complexity of the procedures as well as copious contrast and his multiple core morbidities. Subjective Subjective Pt reports he lives home alone in a 2-story apartment with 3 -4 RISHI. Pt was IND with all mobility prior to admission. Pt did not use any AD for functional mobility and does not own a RW. 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 Pt walked to work daily. Pt not driving prior to admission. New diagnosis of cancer in past 12 No months? Rehab PT IP Eval Objective Appearance Patient Behavior Appropriate,Cooperative Patient Orientation Person,Situation Difficulty following instructions none Speech Pattern Soft-Spoken Ambulation Patient Able to Ambulate Yes Ambulation Observation IP General Gait Pattern Observation Wide Based Gait Ambulation Distance (feet) 80 Ambulation Assistive Device Rolling Walker Ambulation Ability Supervision/Stand by Balance Ability to Arise Able, uses arms to help Sitting Balance Steady, safe Standing Balance Steady, wide stance Dynamic Sitting Balance Ability Good Dynamic Standing Balance Ability Good Rehab PT IP prob,goals,plan Problems Date of Evaluation: 02/09/24 PT IP Problems Gait,Balance,Other Other Pt Problem Endurance Rehab Potential Rehab Potential Innapropriate for Skilled Therapy Discharge Plan PT Discharge Plan Initial physical therapy evaluation performed. Patient presents below baseline at this time in gait and endurance. Pt able to demo safe ambulation without LOB when using a RW. Pt wishes to return to work as soon as able . PT educated pt to use RW when performing community and household ambulation. Pt safe to d/c home when deemed medically necessary d/t current level of mobility when using RW. Pt would benefit from using RW for mobility upon d/c. PT updated CM on pt' s need for RW. Pt not appropriate for skilled acute care PT at this time d/t pt?s mobility being IND/SUP. Eval Complexity Eval Charge Codes 64188 - Moderate Complexity PHYSICIAN CERTIFICATION: I certify the specified therapy services for Sunday Talbot are required, authorized, and reviewed every 30 days.
--- NOTE | 2024-02-09 15:58 | CARE MANAGER ---
Patient requires ambulation assist that cannot be corrected with a cane and will require a rolling walker.
[2024-02-09 17:20] LABS: POC Glucose,Bedside 175 (70-110)
--- NOTE | 2024-02-13 14:38 | CARE MANAGER ---
Attempted to contact patient related to hospital discharge. No VM option. CECELIA Barbosa
--- NOTE | 2024-02-13 15:26 | EXP.DC.SUM ---
General Admission date:: 02/08/24 Discharge date: 02/09/24 HPI HPI HPI: Mr. Talbot is a 63-year-old male with severe three-vessel coronary artery disease as well as diabetes. He was deemed a nonsurgical candidate based on open and infected lower extremity wounds. He was taken to the Package Checker today and 6 stents were placed. It was felt he would require overnight admission due to the complexity of the procedures as well as copious contrast and his multiple core morbidities. Hospital Course Hospital Course Hospital Course: Patient had a cardiac cath on 01/29/2024 which revealed severe three-vessel coronary artery disease With successful stenting of the proximal to mid circumflex and successful intravascular lithotripsy to the mid LAD with successful stenting of the mid to distal LAD stent. And successful stenting of the proximal to mid circumflex artery for severe disease and also successful stenting of the proximal to mid first obtuse marginal artery for severe disease. He required admission overnight due to the complexity of the procedure and copious contrast and his multiple comorbidities. The following day on 02/09/2024 he was very tired. He denied any chest pain and shortness of breath. Renal function was noted to be normal. He was able to eat without difficulties and was up ad watson. In the p.m. of 02/09/2024 he was stable to be discharged to home. Exam Data for Last 24 hours Vital signs and Labs for Last 24 Hours: Temp Pulse Resp BP Pulse Ox O2 Del Method 97.8 F 70 14 86/46 L 97 Room Air 02/09/24 15:50 02/09/24 16:00 02/09/24 15:50 02/09/24 15:50 02/09/24 15:50 02/09/24 17:00 Narrative: Constitutional: Present no acute distress Respiratory: Present CTA bilaterally Cardiac: Present Reg Rate and Rhythm GI: Present soft; Absent distention, tenderness or guarding Extremities: Present edema (bilateral LE's) Neuro: Present alert and awake Results Data Completed and Pending Completed studies during hospitalization [Text1]: 02/08/24 08:20: Carbon Dioxide 26, Anion Gap 13.5, BUN 13, Creatinine 1.10, Estimated Creat Clear 94, Estimated GFR 68, Est GFR ( Amer) 82, Glucose 121 H, Calcium 9.6 02/08/24 10:28: Activated Clotting Time > 400 H* 02/08/24 10:56: Activated Clotting Time 305 H* D 02/08/24 21:28: POC Glucose 182 H 02/09/24 05:32: POC Glucose 157 H 02/09/24 06:00: Total Bilirubin 0.8, Direct Bilirubin 0.2, Conjugated Bilirubin 0.0, Indirect Bilirubin 0.6, Unconjugated Bilirubin 0.6, AST 33, ALT 16, Alkaline Phosphatase 114, Total Protein 6.1 L, Albumin 3.8, Triglycerides 321 H, Cholesterol 197, LDL Cholesterol Direct 103.12, VLDL Cholesterol 64 H, HDL Cholesterol 28 L, Cholesterol/HDL Ratio 7.0 H 02/09/24 06:03: WBC 8.2 D, RBC 4.80, Hgb 15.6, Hct 46.0, MCV 95.7 H, MCH 32.5 H, MCHC 33.9, RDW 14.1, Plt Count 220, MPV 7.1 L, Neut % (Auto) 85.9 H, Lymph % (Auto) 5.8 L, [place] % (Auto) 5.9, Eos % (Auto) 1.9, Baso % (Auto) 0.4, Neut # (Auto) 7.0, Lymph # (Auto) 0.5 L, [place] # (Auto) 0.5, Eos # (Auto) 0.2, Baso # (Auto) 0.0, Sodium 135 L, Potassium 4.5, Chloride 103, Carbon Dioxide 24, Anion Gap 12.5, BUN 15, Creatinine 1.10, Estimated Creat Clear 94, Estimated GFR 68, Est GFR ( Amer) 82, Glucose 129 H, Calcium 9.2 02/08/2024 cardiac cath report IMPRESSION Severe three-vessel coronary artery disease in a diabetic patient with LV dysfunction who is deemed a nonsurgical candidate based on open and infected lower extremity wounds Successful stenting of the proximal to mid circumflex artery severe disease reduced to 0% with 1 drug-eluting stent Successful intravascular lithotripsy to the mid LAD with successful stenting of the mid to distal LAD severe disease reduced to 0% with 2 contiguous drug-eluting stents Successful stenting of the proximal to mid circumflex artery severe disease reduced to 0% with 2 drug-eluting stents Successful stenting of the proximal to mid first obtuse marginal artery severe disease reduced to 0% with 1 drug-eluting stent PLAN 1. Patient requires admission overnight due to the complexity of the procedure copious contrast and multiple comorbidities. 2. Plavix plus aspirin 3. LDL less than 55 achieved with high intensity statin 4. Avoidance of tobacco products 5. Factor modification 6. Standard therapy for systolic congestive heart failure 7. Evaluate ejection fraction in 90 days to determine if the ejection fraction has improved. If it remains low, 35% or less, patient would be a candidate for AICD 8. Physical therapy DS: Diagnosis Discharge Diagnosis (1) S/P coronary artery stent placement: Status: Acute Code(s): Z95.5 - Presence of coronary angioplasty implant and graft (2) Coronary artery disease: Status: Acute Code(s): I25.10 - Atherosclerotic heart disease of [place] coronary artery without angina pectoris Qualifiers: Coronary Disease-Associated Artery/Lesion type: [place] artery [place] vs. transplanted heart: [place] heart Associated angina: without angina Qualified Code(s): I25.10 - Atherosclerotic heart disease of [place] coronary artery without angina pectoris (3) Diabetes mellitus, type 2: Status: Acute Code(s): E11.9 - Type 2 diabetes mellitus without complications (4) PAD (peripheral artery disease): Status: Acute Code(s): I73.9 - Peripheral vascular disease, unspecified (5) Osteoarthritis: Status: Acute Code(s): M19.90 - Unspecified osteoarthritis, unspecified site Qualifiers: Osteoarthritis location: foot Osteoarthritis type: primary Laterality: right Qualified Code(s): M19.071 - Primary osteoarthritis, right ankle and foot (6) Ischemic cardiomyopathy: Status: Acute Code(s): I25.5 - Ischemic cardiomyopathy (7) Hypertension: Status: Chronic Code(s): I10 - Essential (primary) hypertension Qualifiers: Hypertension type: unspecified Qualified Code(s): I10 - Essential (primary) hypertension (8) Hyperlipidemia: Status: Chronic Code(s): E78.5 - Hyperlipidemia, unspecified Qualifiers: Hyperlipidemia type: unspecified Qualified Code(s): E78.5 - Hyperlipidemia, unspecified (9) LV dysfunction: Status: Acute Code(s): I51.9 - Heart disease, unspecified (10) Leg wound, right: Status: Acute Code(s): S81.801A - Unspecified open wound, right lower leg, initial encounter Qualifiers: Encounter type: initial encounter Qualified Code(s): S81.801A - Unspecified open wound, right lower leg, initial encounter Meds Home Medications and Allergies Home Medications ?Medication ?Instructions ?Recorded ?Confirmed ?Type allopurinol 300 mg tablet 300 mg PO DAILY 11/29/17 02/08/24 History metformin 500 mg tablet 500 mg PO BIDWMEAL 07/29/20 02/08/24 History vericiguat 10 mg tablet (Verquvo) 10 mg PO DAILY 10/11/22 02/08/24 History glimepiride 4 mg tablet 2 mg PO DAILY 01/23/24 02/08/24 History omeprazole 40 mg capsule,delayed 40 mg PO DAILY 01/23/24 02/08/24 History release amlodipine 5 mg tablet 5 mg PO DAILY 02/08/24 02/08/24 History aspirin 81 mg tablet,delayed 81 mg PO DAILY 30 days #30 tabs 02/08/24 Rx release carvedilol 3.125 mg tablet 3.125 mg PO BID 02/08/24 02/08/24 History clopidogrel 75 mg tablet (Plavix) 75 mg PO DAILY 30 days #90 tabs 02/08/24 Rx ertugliflozin 5 mg tablet 5 mg PO DAILY 02/08/24 02/08/24 History (Steglatro) lovastatin 20 mg tablet 20 mg PO DAILY 02/08/24 02/08/24 History rivaroxaban 2.5 mg tablet (Xarelto) 2.5 mg PO BIDWMEAL 02/08/24 02/08/24 History sacubitril 24 mg-valsartan 26 mg 1 tab PO BID 02/08/24 02/08/24 History tablet (Entresto) New Prescriptions to Start Prescriptions: aspirin Akash Koo clopidogrel [Plavix] Akash Koo Allergies Allergy/AdvReac Type Severity Reaction Status Date / Time No Known Allergies Allergy Verified 01/23/24 08:53 Discharge Plan Disposition Patient Disposition: Home, Self-Care Follow up Plan Follow up with: Willy Grissom MD [Primary Care Provider] - 02/23/24 Akash Koo MD [Staff Physician] - 02/16/24 Prescriptions/Medication Reconciliation: New clopidogrel [Plavix] 75 mg Tablet 75 mg PO DAILY 30 Days Qty: 90 6RF aspirin 81 mg Tablet,Delayed Release (Dr/Ec) 81 mg PO DAILY 30 Days Qty: 30 6RF Continued omeprazole 40 mg capsule,delayed release(DR/EC) 40 mg PO DAILY Patient Comments: TAKE 1 CAPSULE BY MOUTH ONCE DAILY 30 MINUTES BEFORE MORNING MEAL glimepiride 4 mg tablet 2 mg PO DAILY Patient Comments: TAKE 1/2 (ONE-HALF) TABLET BY MOUTH ONCE DAILY FOR 90 DAYS metformin 500 mg tablet 500 mg PO BIDWMEAL amlodipine 5 mg tablet 5 mg PO DAILY Patient Comments: TAKE 1 TABLET BY MOUTH ONCE DAILY lovastatin 20 mg tablet 20 mg PO DAILY Steglatro 5 mg tablet 5 mg PO DAILY Patient Comments: TAKE 1 TABLET BY MOUTH ONCE DAILY IN THE MORNING carvedilol 3.125 mg tablet 3.125 mg PO BID Xarelto 2.5 mg tablet 2.5 mg PO BIDWMEAL allopurinol 300 tablet 300 mg PO DAILY Held Entresto 24-26 mg tablet 1 tab PO BID Hold Instructions: Resume on 02/16/24. Hold until f/u with cardiology Patient Comments: TAKE 1 TABLET BY MOUTH TWICE DAILY Verquvo 10 mg tablet 10 mg PO DAILY Hold Instructions: Resume on 02/16/24. Hold until f/u with cardiology Discontinued Brilinta 90 mg tablet 90 mg PO BID Patient Comments: TAKE 1 TABLET BY MOUTH TWICE DAILY Problem Reconciliation Problems Reviewed?: Yes Patient Discharge Instructions Additional Instructions: Home with walker per PT recommendations. Patient Instructions: Cardiac Catheterization, DI for Cardiac Catheterization, DI for Surgical Site Infection, Surgical Site Infection Print Language: Croatian Providers Primary Care Provider: Willy Grissom Admit Provider: Akash Koo Attending Provider: Willy Grissom
== END 2024-02-09 18:05 | disposition home or self-care (01) ==
LOC: 2ND 11:33
PROVIDERS: Admitting Provider Internal Medicine; PCP Family Medicine; Visit Provider Family Medicine
DX: I25.10 Atherosclerotic heart disease of native coronary artery without angina pectoris (principal); Z95.5 Presence of coronary angioplasty implant and graft; R93.1 Abnormal findings on diagnostic imaging of heart and coronary circulation; E11.9 Type 2 diabetes mellitus without complications; M19.071 Primary osteoarthritis, right ankle and foot; I25.5 Ischemic cardiomyopathy; I11.0 Hypertensive heart disease with heart failure; E78.5 Hyperlipidemia, unspecified; Z79.899 Other long term (current) drug therapy; I50.21 Acute systolic (congestive) heart failure; I77.1 Stricture of artery; T82.855A Stenosis of coronary artery stent, initial encounter; Y83.1 Surgical operation with implant of artificial internal device as the cause of abnormal reaction of the patient, or of later complication, without mention of misadventure at the time of the procedure; Z86.16 Personal history of COVID-19; Z79.01 Long term (current) use of anticoagulants; Z79.84 Long term (current) use of oral hypoglycemic drugs; S81.801A Unspecified open wound, right lower leg, initial encounter
CPT/HCPCS: 36415; 80048; 80061; 80076; 82962; 85007; 85025; 85027; 85347; 92928; 92929; 92972; 97162; 99152; 99153; C1725; C1761; C1769; C1874; C9600; C9601; G0378; J1200; J1644; J2250; J3010; Q9967

== ENCOUNTER 2024-02-28 17:51 | Emergency (ER) | payer OTHER, SELFPAY ==
[2024-02-28 18:15] VITALS: BP 140/86; PULSE 74; RESP 17; TEMP 36.8; O2SAT 98; BMI 30.5
--- NOTE | 2024-02-28 18:37 | EXP.UTC ---
Discharge Plan Disposition Patient Disposition: Home, Self-Care Condition: Good Prescriptions Prescriptions: No Action omeprazole 40 mg capsule,delayed release(DR/EC) 40 mg PO DAILY Patient Comments: TAKE 1 CAPSULE BY MOUTH ONCE DAILY 30 MINUTES BEFORE MORNING MEAL glimepiride 4 mg tablet 2 mg PO DAILY Patient Comments: TAKE 1/2 (ONE-HALF) TABLET BY MOUTH ONCE DAILY FOR 90 DAYS metformin 500 mg tablet 500 mg PO BIDWMEAL amlodipine 5 mg tablet 5 mg PO DAILY Patient Comments: TAKE 1 TABLET BY MOUTH ONCE DAILY lovastatin 20 mg tablet 20 mg PO DAILY Entresto 24-26 mg tablet 1 tab PO BID Patient Comments: TAKE 1 TABLET BY MOUTH TWICE DAILY Steglatro 5 mg tablet 5 mg PO DAILY Patient Comments: TAKE 1 TABLET BY MOUTH ONCE DAILY IN THE MORNING clopidogrel [Plavix] 75 mg Tablet 75 mg PO DAILY 30 Days Qty: 90 6RF aspirin 81 mg Tablet,Delayed Release (Dr/Ec) 81 mg PO DAILY 30 Days Qty: 30 6RF carvedilol 3.125 mg tablet 3.125 mg PO BID Xarelto 2.5 mg tablet 2.5 mg PO BIDWMEAL allopurinol 300 tablet 300 mg PO DAILY Verquvo 10 mg tablet 10 mg PO DAILY Referrals Follow up/Referrals: Willy Grissom MD [Primary Care Provider] - See instructions Activity Restrictions/Add. Instructions Additional Instructions/Restrictions: Drink extra fluids with and between meals. If you have difficulty drinking, try very small amounts of water or suck on ice chips. ? Avoid fruit juices, as these do not replace minerals and can actually increase diarrhea. ? Children and adults can use sports drinks to replenish electrolytes. Younger children and infants should use products formulated for children, like oral rehydration solutions. ? Eat food in small amounts and let your stomach recover. ? Get lots of rest. You may feel tired or weak. ? No greasy or fried foods for the next 24-48 hours BRAT diet Bananas Rice Apples and [employer] ? Make sure to drink plenty of liquids ? Return if needed ? Straight to ER if any life threatening symptoms ? Follow up with family doctor in the next 48-72 hours if no improvement or any worsening of symptoms Clinical Impressions Clinical Impression: Vomiting Stand Alone Forms Stand Alone Forms: Work/School Release Instructions Patient Instructions: DI for Vomiting -- Adult Print Language Print Language: Panamanian Discharge ED Provider: Kaylen Samaniego [facility] [place] HPI General Stated complaint: Vomiting,bad taste in mouth Mode of Arrival: Ambulatory Source of Information: Patient Limitations: No Limitations Time Seen by Provider: 02/28/24 18:37 Description of Symptoms (Recalled from Triage Doc. by RN): PATIENT STATES HE VOMITED AT WORK ONCE THIS AFTERNOON HEENT Symptoms (Recalled from RN notes): No Resp Symptoms (Recalled from RN notes): No Skin Symptoms (Recalled from RN notes): No MS Symptoms (Recalled from RN notes): No Functional Status (Recalled from RN notes): WNL History of Present Illness Provider Complaint: Patient states that he was at work earlier and vomited not sure why but hasnt had any vomiting, diarrhea or nausea since States that they made him leave work and he had to come here and get a work note States he feels fine now just wants a work note Related Data Home Medications ?Medication ?Instructions ?Recorded ?Confirmed allopurinol 300 mg tablet 300 mg PO DAILY 02/28/24 02/28/24 amlodipine 5 mg tablet 5 mg PO DAILY 02/28/24 02/28/24 aspirin 81 mg tablet,delayed 81 mg PO DAILY 02/28/24 02/28/24 release carvedilol 3.125 mg tablet 3.125 mg PO BID 02/28/24 02/28/24 clopidogrel 75 mg tablet 75 mg PO DAILY 02/28/24 02/28/24 ertugliflozin 5 mg tablet 5 mg PO DAILY 02/28/24 02/28/24 (Steglatro) glimepiride 4 mg tablet 4 mg PO DAILY 02/28/24 02/28/24 lovastatin 20 mg tablet 20 mg PO DAILY 02/28/24 02/28/24 metformin 500 mg tablet 500 mg PO BID 02/28/24 02/28/24 omeprazole 40 mg capsule,delayed 40 mg PO DAILY 02/28/24 02/28/24 release rivaroxaban 2.5 mg tablet (Xarelto) 2.5 mg PO BID 02/28/24 02/28/24 sacubitril 24 mg-valsartan 26 mg 1 tab PO BID 02/28/24 02/28/24 tablet (Entresto) ticagrelor 90 mg tablet (Brilinta) 90 mg PO BID 02/28/24 02/28/24 vericiguat 10 mg tablet (Verquvo) 10 mg PO DAILY 02/28/24 02/28/24 Allergies Allergy/AdvReac Type Severity Reaction Status Date / Time No Known Allergies Allergy Verified 02/20/24 14:21 Worker's Comp Is this a Worker's Comp case?: No [facility] Disclaimer: The information contained in this section may have been updated after the patient was seen, as this information can be updated by other users. Medical History E. coli UTI Fracture of fifth metatarsal bone of right foot Foot lesion Severe sepsis CHF (congestive heart failure) Abnormal ECG LV dysfunction Ischemic cardiomyopathy Coronary artery disease COVID-19 Gout Hypertension Hyperlipidemia Diabetes mellitus, type 2 Onychomycosis Onychodystrophy Acquired metatarsus varus Abrasion of foot, right Fracture of fourth metatarsal bone of right foot Vaccine counseling Immunization due Blister of foot without infection Surgical History S/P coronary artery stent placement Hx of heart artery stent x5 History of cardiac cath History of tonsillectomy Family History Other Coronary artery disease Diabetes Hyperlipidemia Social History Smoking Status: Never smoker alcohol intake: never current occupational status: employed Travel in the last 8 weeks: None ROS Obtained: Yes All systems reviewed & no additional complaints except as documented and Yes Systems reviewed as appropriate & no additional complaints except as documented Constitutional Constitutional: Reports system reviewed and no additional complaints, except as documented and Reports as per HPI ENT Ears, Nose, Mouth, and Throat: Reports system reviewed and no additional complaints, except as documented and Reports as per HPI Cardiovascular Cardiovascular: Reports system reviewed and no additional complaints, except as documented and Reports as per HPI Respiratory Respiratory: Reports system reviewed and no additional complaints, except as documented and Reports as per HPI Gastrointestinal Gastrointestingal: Reports system reviewed and no additional complaints, except as documented, as per HPI and vomiting (once earlier today); Denies abdominal pain, belching, bloating, change in bowel habits, cramping, diarrhea, dyspepsia or nausea Physical Exam General General appearance: alert and in no apparent distress Eye Eye exam: Present normal appearance, PERRL and EOMI ENT ENT exam: Present normal exam, normal oropharynx, mucous membranes moist and TM's normal bilaterally Respiratory Respiratory exam: Present normal lung sounds bilaterally; Absent respiratory distress or wheezes Cardiovascular Cardiovascular exam: Present regular rate, normal rhythm and normal heart sounds Abdominal Exam Abdominal exam: Present soft and normal bowel sounds; Absent distention or tenderness Neurological Exam Neurological exam: Present alert, oriented X3 and normal gait Medical Decision Making Medical Records Screening: Per USPSTF and CDC recommendations, given the prevalence of disease in our region, it is our hospital?s policy to screen for HIV and viral Hepatitis for all patients aged 18 and over and those with ongoing risk factors. James Inquiry Pt receiving controlled substance: No James was queried for this patient: No Vital Signs: 02/28/24 18:15 Temperature 98.3 F Temperature Source Oral Pulse Rate [Left Brachial] 74 Respiratory Rate 17 Blood Pressure [Left Arm] 140/86 Blood Pressure Mean [Left Arm] 104 Blood Pressure Source [Left Arm] Automatic Cuff Blood Pressure Position [Left Arm] Sitting 02 Sat by Pulse Oximetry 98 Oxygen Delivery Method Room Air
[2024-02-28 18:45] VITALS: BP 140/86; PULSE 74; RESP 17; TEMP 36.8; O2SAT 98
== END 2024-02-28 18:47 | disposition home or self-care (01) ==
PROVIDERS: Emergency Provider Nurse Practitioner; PCP Family Medicine
DX: R11.10 Vomiting, unspecified (principal)
CPT/HCPCS: 99211; G0380

== ENCOUNTER 2024-03-27 07:59 | Outpatient (CLI) | payer OTHER, SELFPAY ==
--- NOTE | 2024-03-27 08:05 | CA_ITS ---
APPROVED REPORT EXAM: Comprehensive 2D, Doppler, and color-flow Echocardiogram Roaster Operator: Shira Real RDCS Ht: 6 ft 0 in Wt: 216lbs BSA: 2.20 BP: 128/82 mmHg Indications: REASSESS EF,ABN EKG,MURMUR,HTN,HLP,DM M-Mode Dimensions RVDd 1.94 cm (0.9-2.6) LA Diam 4.09 cm (1.9-4.0) LVDd 5.63 cm (3.5-5.7) LVDs 3.80 cm (3.5-5.7) IVSd 1.26 cm (0.6-1.1) PWd 1.29 cm (0.6-1.1) EF (Teich) 60.20% FS 32.50% EDV (Teich) 155.60 mL ESV (Teich) 62.00 mL LV Diastology E Decel Time 293 (160-240 msec) E/A Ratio 0.8 Mitral Valve MV E Max Juno. 79.0 (40-130 cm/s) MV A Velocity 104.0 (40-130 cm/s) E/A Ratio 0.76 MV PHT 86.0 ms Left Ventricle The left ventricle is normal size. The left ventricular systolic function is mildly reduced. There is marked increase in LV wall thickness. IVSD is 1.4 cm. There is mild global hypokinesis present. Diastolic function is indeterminate. LVEF is 45-50% Right Ventricle The right ventricle is normal size. The right ventricular systolic function is normal. Atria The left atrium is mildly dilated. The right atrium size is normal. There is no Doppler evidence of interatrial shunt. Aortic Valve The aortic valve opens well. There is no aortic valvular stenosis. No aortic regurgitation is present. Mitral Valve The mitral valve is normal in structure. No evidence of mitral valve stenosis. Trace mitral valve regurgitation noted. Tricuspid Valve Tricuspid valve is grossly normal in structure and function. Trace tricuspid regurgitation. There is insufficient TR jet to estimate RVSP. Pulmonic Valve The pulmonary valve is normal in structure. Trace pulmonic regurgitation. Great Vessels The aortic root is normal in size. The ascending aorta is not well-visualized. IVC is normal in size and collapses >50% with inspiration. Pericardium There is no pericardial effusion. Other Information Study Quality: Fair Conclusion Mildly reduced LV systolic function (LVEF 45-50%). Marked increase in LV wall thickness. IVSD 1.4 cm. Mild LA dilation. No significant valvular stenosis or regurgitation. In the setting of marked increased LV wall thickness, further evaluation for infiltrative cardiomyopathy is suggested with cardiac MRI (amyloidosis protocol), PYP nuclear scan, and amyloidosis lab testing. Electronically signed by : Padmini Martínez MD 04/03/2024 00:07:09
== END 2024-03-27 23:59 | disposition home or self-care (01) ==
LOC: RT 08:00
PROVIDERS: PCP Family Medicine; Visit Provider Physician Assistant
DX: I51.7 Cardiomegaly (principal); I50.20 Unspecified systolic (congestive) heart failure; R01.1 Cardiac murmur, unspecified
CPT/HCPCS: 93306

== ENCOUNTER 2024-04-14 15:54 | Emergency (ER) | payer OTHER, SELFPAY ==
[2024-04-14] VITALS (9 sets, daily range): BP systolic 104–151; BP diastolic 60–82; PULSE 64–103; RESP 15–28; TEMP 36.8–37; O2SAT 96–98; BMI 32.8; BMI 29.4
--- NOTE | 2024-04-14 16:49 | ED_ITS ---
Discharge Plan Disposition Patient Disposition: Still a Patient Prescriptions Prescriptions: No Action rosuvastatin [Crestor] 40 mg tablet 40 mg PO DAILY Qty: 30 3RF metformin 500 mg tablet 500 mg PO BID Patient Comments: TAKE 1 TABLET BY MOUTH TWICE DAILY clopidogrel 75 mg tablet 75 mg PO DAILY Patient Comments: TAKE 1 TABLET BY MOUTH ONCE DAILY amlodipine 5 mg tablet 5 mg PO DAILY Patient Comments: TAKE 1 TABLET BY MOUTH ONCE DAILY omeprazole 40 mg capsule,delayed release(DR/EC) 40 mg PO DAILY Patient Comments: TAKE 1 CAPSULE BY MOUTH ONCE DAILY 30 MINUTES BEFORE MORNING MEAL aspirin 81 mg tablet,delayed release (DR/EC) 81 mg PO DAILY Patient Comments: TAKE 1 TABLET BY MOUTH ONCE DAILY carvedilol 3.125 mg tablet 3.125 mg PO BID Patient Comments: TAKE 1 TABLET BY MOUTH TWICE DAILY glimepiride 4 mg tablet 4 mg PO DAILY Patient Comments: TAKE 1/2 (ONE-HALF) TABLET BY MOUTH ONCE DAILY FOR 90 DAYS allopurinol 300 mg tablet 300 mg PO DAILY Patient Comments: TAKE 1 TABLET BY MOUTH ONCE DAILY Brilinta 90 mg tablet 90 mg PO BID Patient Comments: TAKE 1 TABLET BY MOUTH TWICE DAILY Entresto 24-26 mg tablet 1 tab PO BID Patient Comments: TAKE 1 TABLET BY MOUTH TWICE DAILY Steglatro 5 mg tablet 5 mg PO DAILY Patient Comments: TAKE 1 TABLET BY MOUTH ONCE DAILY IN THE MORNING Verquvo 10 mg tablet 10 mg PO DAILY Patient Comments: TAKE 1 TABLET BY MOUTH ONCE DAILY Referrals Follow up/Referrals: Willy Grissom MD [Primary Care Provider] - See instructions Print Language Print Language: Marshallese Discharge ED Provider: Jose ([facility] [place] H[place] General Stated complaint: vomiting and chills Mode of Arrival: Ambulatory Source of Information: Patient Limitations: No Limitations Time Seen by Provider: 04/14/24 16:48 Description of Symptoms (Recalled from Triage Doc. by RN): PATIENT C/O VOMITING AND CHILLS THAT STARTED THIS AFTERNOON HEENT Symptoms (Recalled from RN notes): No Resp Symptoms (Recalled from RN notes): No Skin Symptoms (Recalled from RN notes): No MS Symptoms (Recalled from RN notes): No Functional Status (Recalled from RN notes): WNL History of Present Illness Provider Complaint: 63-year-old male presents for chest pain, pressure, nausea and vomiting. Patient states he is having chest pain that comes and goes and it feels like it did when he had his heart attacks in the past. Patient states he has several stents and was told that his heart wall is thinning. Related Data Home Medications ?Medication ?Instructions ?Recorded ?Confirmed allopurinol 300 mg tablet 300 mg PO DAILY 02/28/24 04/03/24 amlodipine 5 mg tablet 5 mg PO DAILY 02/28/24 04/03/24 aspirin 81 mg tablet,delayed 81 mg PO DAILY 02/28/24 04/03/24 release carvedilol 3.125 mg tablet 3.125 mg PO BID 02/28/24 04/03/24 clopidogrel 75 mg tablet 75 mg PO DAILY 02/28/24 04/03/24 ertugliflozin 5 mg tablet 5 mg PO DAILY 02/28/24 04/03/24 (Steglatro) glimepiride 4 mg tablet 4 mg PO DAILY 02/28/24 04/03/24 metformin 500 mg tablet 500 mg PO BID 02/28/24 04/03/24 omeprazole 40 mg capsule,delayed 40 mg PO DAILY 02/28/24 04/03/24 release sacubitril 24 mg-valsartan 26 mg 1 tab PO BID 02/28/24 04/03/24 tablet (Entresto) ticagrelor 90 mg tablet (Brilinta) 90 mg PO BID 02/28/24 04/03/24 vericiguat 10 mg tablet (Verquvo) 10 mg PO DAILY 02/28/24 04/03/24 Previous Rx's ?Medication ?Instructions ?Recorded rosuvastatin 40 mg tablet (Crestor) 40 mg PO DAILY #30 tabs 03/20/24 Allergies Allergy/AdvReac Type Severity Reaction Status Date / Time No Known Allergies Allergy Verified 04/03/24 13:16 Worker's Comp Is this a Worker's Comp case?: No [facility] Disclaimer: The information contained in this section may have been updated after the patient was seen, as this information can be updated by other users. 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) S/P coronary artery stent placement Hx of heart artery stent History of cardiac cath History of tonsillectomy Family History , 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) Diabetes Coronary artery disease Hyperlipidemia Social History , 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) Smoking Status: Never smoker alcohol intake: never current occupational status: employed Travel in the last 8 weeks: None Have you lived/traveled outside [place] in past 30 days?: No Contact w/someone who lives/traveled outside [place] past 30 days?: No Exposure to someone with infectious disease in past 14 days?: Yes Do you have a fever (greater than 100.4 F or 38 C)?: No Have you tested positive for COVID-19: No Exposed to someone with COVID-19 in past 14 days?: No Do you have a sore throat?: No Do you have a cough?: No Do you have any weakness?: No Do you have any diarrhea?: No Are you experiencing any unusual bleeding?: No Do you have any muscle aches/pain?: No Do you have any abdominal pain?: No Are you experiencing loss of taste or smell?: No ROS Obtained: Yes Systems reviewed as appropriate & no additional complaints except as documented Physical Exam General General appearance: alert and in no apparent distress Eye Eye exam: Present normal appearance ENT ENT exam: Present normal exam Respiratory Respiratory exam: Present normal lung sounds bilaterally Cardiovascular Cardiovascular exam: Present regular rate and normal rhythm Abdominal Exam Abdominal exam: Present soft, tenderness and normal bowel sounds Neurological Exam Neurological exam: Present alert and oriented X3 Skin Skin exam: Present warm and intact Lymphatic Lymphatic Findings: no adenopathy Medical Decision Making Medical Records Medical records reviewed: Yes I reviewed the patient's medical records. Screening: Per USPSTF and CDC recommendations, given the prevalence of disease in our region, it is our hospital?s policy to screen for HIV and viral Hepatitis for all patients aged 18 and over and those with ongoing risk factors. James Inquiry Pt receiving controlled substance: No Vital Signs: 04/14/24 16:15 Temperature 98.6 F Temperature Source Oral Pulse Rate [Left Brachial] 64 Respiratory Rate 18 Blood Pressure [Left Arm] 151/75 H Blood Pressure Mean [Left Arm] 100 Blood Pressure Source [Left Arm] Automatic Cuff Blood Pressure Position [Left Arm] Sitting 02 Sat by Pulse Oximetry 96 Oxygen Delivery Method Room Air Medical Decision Narrative: Sent to the ER for evaluation due to chest pain with prior history of AK and stent
--- NOTE | 2024-04-14 17:04 | ECG_ITS ---
APPROVED REPORT Exam: Resting ECG HR:100 bpm ECG Measurements Heart Rate 100 AXES [place] 166 P 8 QRSd 100 QRS -19 QT 324 T 52 QTc 381 Conclusion SINUS TACHYCARDIA WITH FREQUENT SUPRAVENTRICULAR PREMATURE COMPLEXES SEPTAL MYOCARDIAL INFARCTION , POSSIBLY ACUTE [40+ ms Q WAVE IN V1/V2] ACUTE UT UNCONFIRMED REPORT Electronically signed by : Mario Cavanaugh, 04/14/2024 23:28:13
--- NOTE | 2024-04-14 17:26 | XR_ITS ---
PROCEDURE INFORMATION: Exam: XR Chest Exam date and time: 04/14/2024 5:47 PM Age: 63 years old Clinical indication: Other: Chest pain; Additional info: Cp TECHNIQUE: Imaging protocol: Radiologic exam of the chest. Views: 1 view. COMPARISON: CR XR CHEST PORTABLE 05/06/2022 7:14 PM FINDINGS: Airway: Airways are patent. Lungs: Low lung volumes causes crowding of the bronchovascular structures. No consolidations. Pleural spaces: No pleural effusions or pneumothorax. Heart/Mediastinum: Mild cardiomegaly. Vasculature: Calcified aortic knob. Bones/joints: No acute skeletal abnormality or aggressive osseous lesion. Soft tissues: No acute soft tissue findings. IMPRESSION: No acute findings.
--- NOTE | 2024-04-14 17:29 | ED_ITS ---
Discharge Plan Disposition Patient Disposition: Still a Patient Prescriptions Prescriptions: New ondansetron 4 mg tablet,disintegrating 4 mg PO Q6H PRN (Reason: nausea and vomiting) 5 Days Qty: 20 0RF No Action rosuvastatin [Crestor] 40 mg tablet 40 mg PO DAILY Qty: 30 3RF metformin 500 mg tablet 500 mg PO BID Patient Comments: TAKE 1 TABLET BY MOUTH TWICE DAILY clopidogrel 75 mg tablet 75 mg PO DAILY Patient Comments: TAKE 1 TABLET BY MOUTH ONCE DAILY amlodipine 5 mg tablet 5 mg PO DAILY Patient Comments: TAKE 1 TABLET BY MOUTH ONCE DAILY omeprazole 40 mg capsule,delayed release(DR/EC) 40 mg PO DAILY Patient Comments: TAKE 1 CAPSULE BY MOUTH ONCE DAILY 30 MINUTES BEFORE MORNING MEAL aspirin 81 mg tablet,delayed release (DR/EC) 81 mg PO DAILY Patient Comments: TAKE 1 TABLET BY MOUTH ONCE DAILY carvedilol 3.125 mg tablet 3.125 mg PO BID Patient Comments: TAKE 1 TABLET BY MOUTH TWICE DAILY glimepiride 4 mg tablet 4 mg PO DAILY Patient Comments: TAKE 1/2 (ONE-HALF) TABLET BY MOUTH ONCE DAILY FOR 90 DAYS allopurinol 300 mg tablet 300 mg PO DAILY Patient Comments: TAKE 1 TABLET BY MOUTH ONCE DAILY Brilinta 90 mg tablet 90 mg PO BID Patient Comments: TAKE 1 TABLET BY MOUTH TWICE DAILY Entresto 24-26 mg tablet 1 tab PO BID Patient Comments: TAKE 1 TABLET BY MOUTH TWICE DAILY Steglatro 5 mg tablet 5 mg PO DAILY Patient Comments: TAKE 1 TABLET BY MOUTH ONCE DAILY IN THE MORNING Verquvo 10 mg tablet 10 mg PO DAILY Patient Comments: TAKE 1 TABLET BY MOUTH ONCE DAILY Referrals Follow up/Referrals: Willy Grissom MD [Primary Care Provider] - See instructions Activity Restrictions/Add. Instructions Additional Instructions/Restrictions: Your symptoms today are most likely secondary to a viral gastrointestinal illness. He did have a slight myocardial/heart injury secondary to this but no evidence of a heart attack. I recommend that you follow-up closely with Dr. Grissom and he would like to see you on Tuesday in his clinic. Please keep yourself well-hydrated and come back to the emergency department with any worsening chest pain or other concerns. Clinical Impressions Clinical Impression: Nausea & vomiting, Atypical chest pain, Myocardial injury Print Language Print Language: Guyanese Discharge ED Provider: Gini Cavanaugh [facility] General Chief Complaint: Chest Pain Stated Complaint: vomiting and chills Time Seen by Provider: 04/14/24 16:48 Mode of Arrival: Wheelchair Source of Information: Patient Limitations: No Limitations Description of Symptoms (Recalled from ER Triage Doc. by RN): pt c/o n/v denies chest pain. states he had stents placed History of Present Illness HPI narrative: Patient is a 63-year-old male poorly controlled diabetes with chronic open wound on his ankle with known multivessel disease recently within the last several months having a heart cath and multiple stents placed who is not a surgical candidate presents today with nausea and vomiting. He currently states he is having no symptoms Works at [employer] and states he had some nausea followed by 2 episodes of vomiting where he felt completely better. He states in the middle of one of the vomiting episodes he had some very mild chest discomfort that completely resolved after vomiting. No exertional symptoms no diaphoresis no radiation and again stated above he is not currently having any symptoms. Related Data Home Medications ?Medication ?Instructions ?Recorded ?Confirmed allopurinol 300 mg tablet 300 mg PO DAILY 02/28/24 04/03/24 amlodipine 5 mg tablet 5 mg PO DAILY 02/28/24 04/03/24 aspirin 81 mg tablet,delayed 81 mg PO DAILY 02/28/24 04/03/24 release carvedilol 3.125 mg tablet 3.125 mg PO BID 02/28/24 04/03/24 clopidogrel 75 mg tablet 75 mg PO DAILY 02/28/24 04/03/24 ertugliflozin 5 mg tablet 5 mg PO DAILY 02/28/24 04/03/24 (Steglatro) glimepiride 4 mg tablet 4 mg PO DAILY 02/28/24 04/03/24 metformin 500 mg tablet 500 mg PO BID 02/28/24 04/03/24 omeprazole 40 mg capsule,delayed 40 mg PO DAILY 02/28/24 04/03/24 release sacubitril 24 mg-valsartan 26 mg 1 tab PO BID 02/28/24 04/03/24 tablet (Entresto) ticagrelor 90 mg tablet (Brilinta) 90 mg PO BID 02/28/24 04/03/24 vericiguat 10 mg tablet (Verquvo) 10 mg PO DAILY 02/28/24 04/03/24 Previous Rx's ?Medication ?Instructions ?Recorded rosuvastatin 40 mg tablet (Crestor) 40 mg PO DAILY #30 tabs 03/20/24 ondansetron 4 mg disintegrating 4 mg PO Q6H PRN nausea and 04/14/24 tablet vomiting 5 days #20 tabs Allergies Allergy/AdvReac Type Severity Reaction Status Date / Time No Known Allergies Allergy Verified 04/03/24 13:16 [facility] Disclaimer: The information contained in this section may have been updated after the patient was seen, as this information can be updated by other users. Medical History , [employer]) Nonhealing skin ulcer Abnormal echocardiogram E. coli UTI Fracture of fifth metatarsal bone of right foot Foot lesion Severe sepsis CHF (congestive heart failure) Abnormal ECG LV dysfunction Ischemic cardiomyopathy Coronary artery disease COVID-19 Gout Hypertension Hyperlipidemia Diabetes mellitus, type 2 Onychomycosis Onychodystrophy Acquired metatarsus varus Abrasion of foot, right Fracture of fourth metatarsal bone of right foot Vaccine counseling Immunization due Blister of foot without infection Surgical History , [employer]) S/P coronary artery stent placement Hx of heart artery stent History of cardiac cath History of tonsillectomy Family History , [employer]) Diabetes Coronary artery disease Hyperlipidemia Social History , [employer]) Smoking Status: Never smoker alcohol intake: never current occupational status: employed Travel in the last 8 weeks: None Have you lived/traveled outside [place] in past 30 days?: No Contact w/someone who lives/traveled outside US past 30 days?: No Exposure to someone with infectious disease in past 14 days?: Yes Do you have a fever (greater than 100.4 F or 38 C)?: No Have you tested positive for COVID-19: No Exposed to someone with COVID-19 in past 14 days?: No Do you have a sore throat?: No Do you have a cough?: No Do you have any weakness?: No Do you have any diarrhea?: No Are you experiencing any unusual bleeding?: No Do you have any muscle aches/pain?: No Do you have any abdominal pain?: No Are you experiencing loss of taste or smell?: No Other Medical History Have you received the Flu Vaccine for this season: No Have you received the Pneumonia Vaccine: No ROS Obtained: Yes All systems reviewed & no additional complaints except as documented Physical Exam General General appearance: alert and in no apparent distress Respiratory Respiratory exam: Present normal lung sounds bilaterally; Absent respiratory distress Cardiovascular Cardiovascular exam: Present regular rate and normal rhythm Neurological Exam Neurological exam: Present alert and oriented X3 HEART Score HEART Score HEART Score assessment performed?: Yes History (anamnesis): Slightly suspicious ECG: Non-specific disturbance Age: 45-65 years Risk factors: Atherosclerosis history Troponin: 1-3x normal limit HEART Score: 5 Critical Care Critical Care Time Critical Care Time: No Medical Decision Making James Inquiry Pt receiving controlled substance: No Vital Signs Vital Signs: 04/14/24 16:15 04/14/24 17:12 04/14/24 17:12 Temperature 98.6 F 98.3 F Temperature Source Oral Oral Pulse Rate 99 H Pulse Rate [Left Brachial] 64 99 H Respiratory Rate 18 18 15 Blood Pressure 119/79 Blood Pressure [Left Arm] 151/75 H 119/79 Blood Pressure Mean [Left Arm] 100 92 Blood Pressure Source [Left Arm] Automatic Cuff Blood Pressure Position [Left Arm] Sitting 02 Sat by Pulse Oximetry 96 98 98 Oxygen Delivery Method Room Air Room Air Room Air 04/14/24 17:30 04/14/24 18:00 04/14/24 18:30 Temperature Temperature Source Pulse Rate 95 H 94 H 103 H Pulse Rate [Left Brachial] Respiratory Rate 22 24 28 H Blood Pressure 129/81 128/82 133/82 Blood Pressure [Left Arm] Blood Pressure Mean [Left Arm] Blood Pressure Source [Left Arm] Blood Pressure Position [Left Arm] 02 Sat by Pulse Oximetry 96 97 98 Oxygen Delivery Method Room Air Room Air Room Air 04/14/24 19:00 04/14/24 19:30 04/14/24 20:01 Temperature Temperature Source Pulse Rate 100 H 99 H 93 H Pulse Rate [Left Brachial] Respiratory Rate 27 H 24 20 Blood Pressure 120/81 116/76 104/60 L Blood Pressure [Left Arm] Blood Pressure Mean [Left Arm] Blood Pressure Source [Left Arm] Blood Pressure Position [Left Arm] 02 Sat by Pulse Oximetry 96 98 97 Oxygen Delivery Method Lab Data Labs: Lab Results 04/14/24 17:13: WBC 6.4, RBC 4.75, Hgb 14.8, Hct 44.1, MCV 92.8, MCH 31.2, MCHC 33.6, RDW 12.0, Plt Count 285, MPV 9.1, Neut % (Auto) 81.9 H, Lymph % (Auto) 5.8 L, [place] % (Auto) 11.2 H, Eos % (Auto) 0.3, Baso % (Auto) 0.3, Neut # (Auto) 5.2, Lymph # (Auto) 0.4 L, [place] # (Auto) 0.7, Eos # (Auto) 0.0, Baso # (Auto) 0.0, S odium 131 L, Potassium 4.5, Chloride 98, Carbon Dioxide 25, Anion Gap 12.5, BUN 33 H, Creatinine 1.50 H, Estimated Creat Clear 68, Estimated GFR 48 L, Est GFR ( Amer) 58 L, Glucose 404 H*, Calcium 9.6, Total Bilirubin 0.5, AST 35, ALT 22, Alkaline Phosphatase 108, Troponin I 0.10 H, Total Protein 7.3, Albumin 4.2, Globulin 3.1, Albumin/Globulin Ratio 1.4 04/14/24 19:55: Troponin I 0.10 H 04/14/24 17:13 04/14/24 17:13 Response Orders (Tests/Meds): ED MEDICATIONS Discontinued Medications Generic Name Dose Route Start Last Admin Trade Name Freq PRN Reason Stop Dose Admin Lactated Ringer's 1,000 mls @ 999 mls/hr 04/14/24 17:30 04/14/24 17:37 Lactated Ringer's 1000 Ml Bag IV 04/14/24 18:30 999 mls/hr .Q1H1M KIRA Administration Ondansetron HCl 4 mg 04/14/24 17:25 04/14/24 17:37 Ondansetron 4mg/2ml Vial IV 04/14/24 17:26 4 mg ONCE ONE Administration ORDERS Category Date Time Status CXR --portable [XR chest portable] Stat Exams 04/14/24 17:26 Completed CBC w/Auto Diff [Complete Blood Count Auto Diff] Stat Lab 04/14/24 17:13 Completed CMP [Comprehensive Metabolic Panel] Stat Lab 04/14/24 17:13 Completed Trop I [Troponin I] Stat Lab 04/14/24 17:13 Completed Troponin I Q3H Lab 04/14/24 19:55 Completed Troponin I Q3H Lab 04/14/24 23:30 Ordered ECG Data Tracing #1: Attestation: I reviewed this ECG and interpreted as documented below: ECG Narrative: Ventricular rate of 100 left axis deviation there are Q waves in the inferior and anterolateral precordial leads consistent with old EKGs no acute ST segment abnormalities overall this is consistent with old EKGs has had the past MDM Narrative Medical Decision Narrative: 63-year-old [employer] employee presents today with nausea and vomiting a complete resolution of his symptoms after those episodes. He initially did not disclose any chest discomfort but when asked further on review of systems he states that he had a little bit of chest discomfort during the vomiting episode is since completely resolved. This is most likely food poisoning or viral syndrome. However given his extensive history of coronary disease we will check a troponin and EKG was unchanged from old EKGs. I have very low suspicion of acute coronary syndrome in this asymptomatic patient who is also on triple antiplatelet therapy. He is closely followed by cardiology if his troponin is negative will have him closely follow-up outpatient. He is already medically optimized had recent stents and no evidence of a STEMI today such as would be the case if he had a stent rethrombosis. Chest x-ray performed which I personally interpreted which shows no acute cardiopulmonary emergency. Patient did have a mildly elevated troponin at 0.1 serial troponins remained stable at 0.1 without a delta. This does not meet universal definition criteria for an AMI and is consistent with a myocardial injury. Patient has no myocardial disease and coronary artery disease in the setting of a viral gastrointestinal illness this is likely a type II type injury. This is not consistent with a plaque rupture or a stent rethrombosis. Patient has remained asymptomatic without chest pain in the emergency department as well. Does have some mild CKD with a creatinine of 1.5. IV fluids were administered his glucose was over 400 is not known poorly controlled diabetic. I discussed the case with Dr. Grissom who is comfortable having the patient follow-up outpatient on Tuesday. Patient has exhausted more aggressive treatment of his coronary artery disease is not a surgical candidate recently had multiple stents. He is on triple antiplatelet agents and he is asymptomatic at the moment. Patient understood this and will follow-up closely on Tuesday with Dr. Grissom.
[2024-04-14] MEDS: LACTATED RINGERS 1000ML 1,000 ML 999 ML IV (17:37)
[2024-04-14] MEDS: ONDANSETRON 4MG/2ML VIAL 4 MG IV (17:37)
[2024-04-14 17:54] LABS: Basophils % 0.3 % (0.1-2.0); Eosinophils % 0.3 % (0.1-12.0); Hematocrit 44.1 % (42.0-52.0); Hemoglobin 14.8 g/dL (14.1-18.0); Lymphocytes # 0.4 K/mm3 (0.7-4.5); Lymphocytes % 5.8 % (10-50); Mean Corpuscular HGB Conc 33.6 g/dL (31.8-35.4); Mean Corpuscular Hemoglobin 31.2 pg (27.0-31.2); Mean Corpuscular Volume 92.8 fl (80-94); Mean Platelet Volume 9.1 fl (7.4-10.4); Monocytes # 0.7 K/mm3 (0.1-1.0); Monocytes % 11.2 % (1.7-9.3); Neutrophils # 5.2 K/mm3 (1.8-7.8); Neutrophils % 81.9 % (37.0-80.0); Platelet Count 285 K/mm3 (142-424); Red Blood Count 4.75 M/mm3 (4.60-6.20); White Blood Count 6.4 K/mm3 (4.8-10.8)
[2024-04-14 18:50] LABS: Albumin Level 4.2 g/dl (3.5-5.0); Chloride 98 mmol/L (98-107); Potassium 4.5 mmoL/L (3.5-5.1); Sodium 131 mmol/L (136-145)
[2024-04-14 18:53] LABS: Alanine Aminotransferase 22 U/L (12-78); Albumin/Globulin Ratio 1.4 (1.1-1.8); Alkaline Phosphatase 108 U/L (38-126); Anion Gap 12.5 mEq/L (5-15); Aspartate Amino Transferase 35 U/L (17-59); Bilirubin,Total 0.5 mg/dl (0.2-1.3); Blood Urea Nitrogen 33 mg/dl (9-20); Calcium 9.6 mg/dl (8.4-10.2); Carbon Dioxide 25 mmol/L (22.0-30.0); Creatinine Clearance Estimated 68 mL/min (50-200); Estimated Glomerular Filt Rate 48 ml/min (>60); GFR (African American) 58 ML/MIN (>60); Globulin 3.1 g/dL (1.3-3.2); Total Protein,Serum 7.3 g/dl (6.3-8.2)
[2024-04-14 18:58] LABS: Glucose 404 mg/dl (74-100)
--- NOTE | 2024-04-14 19:49 | PC.NURSE ---
rounded on pt at this time. pt given urinal per request. call light in reach. no other needs at this time.
== END 2024-04-14 20:42 | disposition home or self-care (01) ==
LOC: UTC 16:59 → ER 17:01
PROVIDERS: Emergency Provider Student in an Organized Health Care Education/Training Program; PCP Family Medicine
DX: I5A Non-ischemic myocardial injury (non-traumatic) (principal); R11.2 Nausea with vomiting, unspecified; R07.89 Other chest pain; R68.83 Chills (without fever); R07.9 Chest pain, unspecified
CPT/HCPCS: 36415; 71045; 80053; 84484; 85025; 93005; 96361; 96374; 99284; J2405; J7120

== ENCOUNTER 2024-04-17 08:00 | Outpatient (RCR) | payer OTHER, SELFPAY ==
--- NOTE | 2024-04-12 09:41 | HMH.PTOPWND ---
Rehab Outpt Wound Evaluation Rehab OP Wound Evaluation Start: 04/12/24 08:16 Freq: Status: Active Protocol: Document 04/12/24 09:26 EMY (Rec: 04/12/24 09:40 [email or web address] [id number]) E-signed By Shawn Ordonez, PT Subjective/History History History This is the initial PT wound eval for Sunday Talbot, 63 yowm who presents with R lower leg wounds for several mos per his report with insidious onset of symptoms. He reports increased pain and tenderness in the lisa-wound area that is worse intermittently. He has increased edema and erythema throughout his R lower leg as well. He has significant PMH of CHF, CAD with multiple stents, STEMI, HTN, HLD, gout, DM, PAD. Subjective Subjective Pain at this time is 5/10 in the R lower leg, TTP 2/4 to lisa-wound skin. 1+ pitting edema and mild erythema throughout R lower leg. Pt presents with extremely poor hygiene this date. New diagnosis of cancer in past 12 No months? Wound Eval Wound Lateral Crocker Wound Type unknown etiology Is This a Chronic Wound Yes Wound Length (cm) 5.6 Wound Width (cm) 6.3 Wound Depth (cm) 0.2 Wound Bed Appearance Eschar Percentage of Eschar (Black) (%) 100 Wound Margins Description Well Defined Surrounding Tissue Appearance Bright Red Edema Type Pitting Edema Degree 1+ Query Text:1+ Trace, Barely Detectable, Rebound 15-30 seconds 2+ Moderate, Slight Indentation, Rebound 10-20 seconds 3+ Deep, Deeper Indentation, Rebound > 30 seconds 4+ Very Deep, Rebound > 60 seconds Edema Appearance Open Sores,Red Drainage Description Serosanguineous Drainage Amount Scant Wound Topical Solution/Irrigant Saline Irrigant Primary Dressing Composite Comment therahoney gel, optifoam gentle border Wound Secondary Dressing Type Gauze Roll/Wrap Wound Debridement Method Sharps,Forceps,Gauze, Mechanical Wound Debridement Amount of Tissue Minimal Removed Wound Debridement Result Patient Unable to Tolerate, Necrotic Tissue Remains Dressing Change Patient Tolerance Tolerated Poorly Olmos-Toure Wound Assessment Tool Assessment Wound size 3= Length x Width 16.1--<36 sq cm Wound depth 4=Obscured by necrosis Wound edges 3=Well-defined, not attached to wound base Wound undermining 1=None present Necrotic tissue type 5=Firmly adherent, hard, black eschar Necrotic tissue amount 5=75% to 100% of wound covered Exudate type 3=Serosanguineous: thin, watery, pale red/pink Exudate amount 2=Scant, wound moist but no observable exudate Skin color surrounding wound 2=Bright red &/or blanches to touch Peripheral tissue edema 5=Crepitus and/or pitting edema extends > or = 4 cm around wound Peripheral tissue induration 1=None present Granulation tissue 5=No granulation tissue present Epithelialization 5= < 25% wound covered Wound assessment total score 44 Wound Problems/Impairments Impairments Problems/Impairmments Palpation Tenderness,Impaired Shower/Bathing,Impaired Household Care,Increased Edema ,Wound Care Needs,Subjective C /O Pain,Impaired Self Care/ Self Management Prognosis Rehab Potential Fair Comment Skilled therapy services are indicated to reduce necrotic tissue, reduce overall wound surface area, and aid pt return to PLOF. Care is significantly complicated by multiple co-morbid conditions that will delay wound healing and pt overall poor hygiene which increases the likelihood of further infections and poor outcomes. 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 Number of Weeks 8 Decreased Palpation Tenderness Yes: 0/4 R lower leg Decrease Wound Area Yes: by 75% Decrease Black/Brown Eschar % Yes: by 100% Decrease Subjective C/O Pain Yes: 3/10 R lower leg Outpatient Therapy Plan of Care Treatment Plan May Include Therapeutic Exercise Including Home Yes Exercise Program Manual Therapy Techniques Yes Neuromuscular Re-education Yes Therapeutic Activities to Return to Yes Previous Functional/Work Level ADL/Self Care Education Yes Ultrasound/Phonophoresis Yes Orthotics/Bracing/Splinting Yes Wound Care Yes Eval/Re-Eval Yes Frequency Times per week 2 Duration Number of Weeks 8 Addendums This patient is a candidate for social No or vocational rehab? Patient/Guardian verbally acknowledges Yes understanding of treatment program and consents to further treatment? Patient/Guardian verbally acknowledges Yes understanding of diagnosis, prognosis and goals for treatment? Eval Complexity PT Charges 36562 - High Complexity PHYSICIAN CERTIFICATION: I certify the specified therapy services for Sunday Talbot are required, authorized, and reviewed every 30 days.
== END 2024-04-17 23:59 | disposition home or self-care (01) ==
LOC: PT 08:00
PROVIDERS: PCP Family Medicine; Visit Provider Nurse Practitioner
DX: M79.661 Pain in right lower leg (principal); S81.801A Unspecified open wound, right lower leg, initial encounter
CPT/HCPCS: 97163; 97597; 97598

== ENCOUNTER 2024-05-17 08:00 | Outpatient (RCR) | payer OTHER, SELFPAY ==
--- NOTE | 2024-05-10 08:46 | [facility].RHREAS ---
Rehab Reassessment Rehab OP Re-assessment Start: 04/26/24 09:39 Freq: Status: Active Protocol: Document 05/10/24 08:25 EMY (Rec: 05/10/24 08:46 PHORJIN [id number]) E-signed By Shawn Ordonez, PT [facility] Wound Assessment Tool Assessment Wound size 4=Length x Width 36.1--<80 sq cm Wound depth 3=Full thickness skin loss involving damage or necrosis of Wound edges 3=Well-defined, not attached to wound base Wound undermining 1=None present Necrotic tissue type 3=Loosely adherent yellow slough Necrotic tissue amount 3=25% to 50% of wound covered Exudate type 5=Purulent: thin or thick, opaque, vargas/yellow, withour without odor Exudate amount 4=Moderate Skin color surrounding wound 2=Bright red &/or blanches to touch Peripheral tissue edema 4=Pitting edema extends <4 cm around wound Peripheral tissue induration 1=None present Granulation tissue 3=Bright, beefy red; <75% & > 25% of wound filled Epithelialization 5= < 25% wound covered Wound assessment total score 41 Rehab Re-assessment Subjective Subjective Pt reports less pain and tenderness in his R lower leg this date, feels better when walking, but still some soreness. Pain 5/10 R lower leg. Objective Objective Notes R lateral delcid wound: L= 7.2 cm, W= 5.6 cm, D= 0.2 cm. 70% granulation tissue, 30% yellow slough. Pain: 5/10 R lower leg TTP: 1/4 lisa-wound skin. BWAT: 44 on IE vs 41 today. Assessment Progress Assessment Progressing as Expected Assessment Notes Pt has shown significant reduction of necrotic tissue and purulent drainage, but slightly increased overall wound surface area. These are expected changes noted in a healing wound. Skilled therapy remains necessary to continue reduction of necrotic tissue and to decrease overall wound surface area to aid pt return to PLOF. Patient goals met ST/3 LT/4 Plan Plan Continue per initial POC. Frequency of Therapy 1-2 x/wk Duration of therapy 4 wks Time and Billing Re-Eval Time 11 Re-Eval Billing Units 1 Charge for PT reassessment? Yes PHYSICIAN CERTIFICATION: I certify the specified therapy services for Sunday Talbot are required, authorized, and reviewed every 30 days.
== END 2024-05-17 23:59 | disposition home or self-care (01) ==
LOC: PT 08:00
PROVIDERS: PCP Family Medicine; Visit Provider Nurse Practitioner
DX: M79.661 Pain in right lower leg (principal); S81.801A Unspecified open wound, right lower leg, initial encounter
CPT/HCPCS: 97164; 97597; 97598

== ENCOUNTER 2024-05-17 09:14 | Emergency (ER) | payer OTHER, SELFPAY ==
[2024-05-17] VITALS (13 sets, daily range): BP systolic 87–111; BP diastolic 47–83; PULSE 68–112; RESP 18; TEMP 35.9–36.6; O2SAT 80–100; BMI 25.8
--- NOTE | 2024-05-17 09:21 | ED_ITS ---
Discharge Plan Disposition Patient Disposition: Xfer Short-Term Hosp Condition: Fair Prescriptions Prescriptions: No Action rosuvastatin [Crestor] 40 mg tablet 40 mg PO DAILY Qty: 30 3RF ondansetron 4 mg tablet,disintegrating 4 mg PO Q6H PRN (Reason: nausea and vomiting) 5 Days Qty: 20 0RF metformin 500 mg tablet 500 mg PO BID Patient Comments: TAKE 1 TABLET BY MOUTH TWICE DAILY clopidogrel 75 mg tablet 75 mg PO DAILY Patient Comments: TAKE 1 TABLET BY MOUTH ONCE DAILY amlodipine 5 mg tablet 5 mg PO DAILY Patient Comments: TAKE 1 TABLET BY MOUTH ONCE DAILY omeprazole 40 mg capsule,delayed release(DR/EC) 40 mg PO DAILY Patient Comments: TAKE 1 CAPSULE BY MOUTH ONCE DAILY 30 MINUTES BEFORE MORNING MEAL aspirin 81 mg tablet,delayed release (DR/EC) 81 mg PO DAILY Patient Comments: TAKE 1 TABLET BY MOUTH ONCE DAILY carvedilol 3.125 mg tablet 3.125 mg PO BID Patient Comments: TAKE 1 TABLET BY MOUTH TWICE DAILY glimepiride 4 mg tablet 4 mg PO DAILY Patient Comments: TAKE 1/2 (ONE-HALF) TABLET BY MOUTH ONCE DAILY FOR 90 DAYS allopurinol 300 mg tablet 300 mg PO DAILY Patient Comments: TAKE 1 TABLET BY MOUTH ONCE DAILY Brilinta 90 mg tablet 90 mg PO BID Patient Comments: TAKE 1 TABLET BY MOUTH TWICE DAILY Entresto 24-26 mg tablet 1 tab PO BID Patient Comments: TAKE 1 TABLET BY MOUTH TWICE DAILY Steglatro 5 mg tablet 5 mg PO DAILY Patient Comments: TAKE 1 TABLET BY MOUTH ONCE DAILY IN THE MORNING Verquvo 10 mg tablet 10 mg PO DAILY Patient Comments: TAKE 1 TABLET BY MOUTH ONCE DAILY Referrals Follow up/Referrals: Willy Grissom MD [Primary Care Provider] - See instructions Print Language Print Language: Guamanian Discharge ED Provider: Gabriel Hogan General Adult HPI General Chief complaint: Extremity Problem,Nontraumatic Stated complaint: poss frostbite rt foot Time Seen by Provider: 05/17/24 09:20 History of Present Illness HPI narrative: Patient presents for pain and discoloration of his bilateral lower extremities. Symptoms were first noticed yesterday however patient reports he does not routinely check his feet and is unsure the last time he noticed his feet with better coloration. He has a chronic wound to his great toe of his right foot for which she is followed by wound care and was sent from wound care clinic today. He states he has been walking in the cold with shoes on. He denies any exquisite pain in his toes. No known injuries. No lesions elsewhere. No previous therapies. Patient, per chart review has history of PAD and is on dual antiplatelet therapy. Please note that above description of symptoms, in this electronic medical record under categorization of recalled from ER triage doctor by RN are reflective of an initial nursing assessment, however, is not reflective of my full history and physical exam that was personally taken and clarified. Consequentially, this preceding description of symptoms, which may include the patient's categorized chief complaint in the EMR, do not reflect my personal clinical impression, and the ultimate description of history of present illness and patient stated complaints should be deferred to this section of the note. Unless stated otherwise or congruent with this section of the note, additional signs, symptoms, or incongruence should be interpreted as inaccurate with my clinical impression. Related Data Home Medications ?Medication ?Instructions ?Recorded ?Confirmed allopurinol 300 mg tablet 300 mg PO DAILY 02/28/24 04/03/24 amlodipine 5 mg tablet 5 mg PO DAILY 02/28/24 04/03/24 aspirin 81 mg tablet,delayed 81 mg PO DAILY 02/28/24 04/03/24 release carvedilol 3.125 mg tablet 3.125 mg PO BID 02/28/24 04/03/24 clopidogrel 75 mg tablet 75 mg PO DAILY 02/28/24 04/03/24 ertugliflozin 5 mg tablet 5 mg PO DAILY 02/28/24 04/03/24 (Steglatro) glimepiride 4 mg tablet 4 mg PO DAILY 02/28/24 04/03/24 metformin 500 mg tablet 500 mg PO BID 02/28/24 04/03/24 omeprazole 40 mg capsule,delayed 40 mg PO DAILY 02/28/24 04/03/24 release sacubitril 24 mg-valsartan 26 mg 1 tab PO BID 02/28/24 04/03/24 tablet (Entresto) ticagrelor 90 mg tablet (Brilinta) 90 mg PO BID 02/28/24 04/03/24 vericiguat 10 mg tablet (Verquvo) 10 mg PO DAILY 02/28/24 04/03/24 Previous Rx's ?Medication ?Instructions ?Recorded rosuvastatin 40 mg tablet (Crestor) 40 mg PO DAILY #30 tabs 03/20/24 ondansetron 4 mg disintegrating 4 mg PO Q6H PRN nausea and 04/14/24 tablet vomiting 5 days #20 tabs Allergies Allergy/AdvReac Type Severity Reaction Status Date / Time No Known Allergies Allergy Verified 04/03/24 13:16 [facility] Disclaimer: The information contained in this section may have been updated after the patient was seen, as this information can be updated by other users. 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) S/P coronary artery stent placement Hx of heart artery stent History of cardiac cath History of tonsillectomy Family History , RESIDENTIAL INSTRUCTOR) Diabetes Coronary artery disease Hyperlipidemia Social History , RESIDENTIAL INSTRUCTOR) Smoking Status: Never smoker alcohol intake: never current occupational status: employed Travel in the last 8 weeks: None Have you lived/traveled outside [place] in past 30 days?: No Contact w/someone who lives/traveled outside US past 30 days?: No Exposure to someone with infectious disease in past 14 days?: No Do you have a fever (greater than 100.4 F or 38 C)?: No Have you tested positive for COVID-19: No Exposed to someone with COVID-19 in past 14 days?: No Do you have a sore throat?: No Do you have a cough?: No Do you have any weakness?: No Do you have any diarrhea?: No Are you experiencing any unusual bleeding?: No Do you have any muscle aches/pain?: No Do you have any abdominal pain?: No Are you experiencing loss of taste or smell?: No Other Medical History Have you received the Flu Vaccine for this season: No Have you received the Pneumonia Vaccine: No ROS Obtained: Yes other As per HPI Physical Exam General General appearance: alert and in no apparent distress Head Head exam: atraumatic and normocephalic Eye Eye exam: Present normal appearance Neck Neck exam: Present normal inspection Chest Chest inspection: Present normal inspection and symmetric chest wall rise Respiratory Respiratory exam: Present normal lung sounds bilaterally; Absent respiratory distress Cardiovascular Cardiovascular exam: Present regular rate and normal rhythm Abdominal Exam Abdominal exam: Present soft Neurological Exam Neurological exam: Present alert and oriented X3 Psychiatric Psychiatric exam: Present normal affect and normal mood Other Other exam information: Bilateral feet, to midfoot area, with dark purple discoloration, delayed capillary refill, ulcerative lesion to ventral aspect of right great toe. Decreased sensation bilaterally. Findings consistent with 3rd-4th degree frostbite injury. Medical Decision Making Medical Records Medical records reviewed: Yes I reviewed the patient's medical records. Screening: Per USPSTF and CDC recommendations, given the prevalence of disease in our region, it is our hospital?s policy to screen for HIV and viral Hepatitis for all patients aged 18 and over and those with ongoing risk factors. James Inquiry Pt receiving controlled substance: No Vital Signs: 05/17/24 09:15 05/17/24 09:34 05/17/24 10:00 Temperature 96.6 F L Temperature Source Rectal Pulse Rate 68 96 H Pulse Rate [Right] 97 H Respiratory Rate 18 Blood Pressure 107/76 L 111/83 Blood Pressure [Right Arm] 110/74 Blood Pressure Mean [Right Arm] 86 02 Sat by Pulse Oximetry 97 80 L 100 Oxygen Delivery Method Room Air Room Air Lab Data Lab Results 05/17/24 11:12: WBC 9.7, RBC 5.03, Hgb 15.7, Hct 46.9, MCV 93.2, MCH 31.2, MCHC 33.5, RDW 13.7, Plt Count 227, MPV 9.1, Neut % (Auto) 79.7, Lymph % (Auto) 14.4, [place] % (Auto) 3.7, Eos % (Auto) 1.3, Baso % (Auto) 0.4, Neut # (Auto) 7.7, Lymph # (Auto) 1.4, [place] # (Auto) 0.4, Eos # (Auto) 0.1, Baso # (Auto) 0.0, Sodium 141, Potassium 4.6, Chloride 100, Carbon Dioxide 23, Anion Gap 22.6 H, BUN 22 H, Creatinine 1.20, Estimated Creat Clear 75, Estimated GFR 62, Est GFR ( Amer) 74, Glucose 147 H, Calcium 9.9, Total Bilirubin 0.9, AST 34, ALT 21, Alkaline Phosphatase 121, Total Creatine Kinase 182 H, Total Protein 7.3, Albumin 4.6, Globulin 2.7, Albumin/Globulin Ratio 1.7, HCV Ab MARCIAL w/Rflx PCR Qn Negative, HIV Ag/Ab Combo Qual Negative 05/17/24 11:12 05/17/24 11:12 Orders (Tests/Meds): ED MEDICATIONS Discontinued Medications Generic Name Dose Route Start Last Admin Trade Name Freq PRN Reason Stop Dose Admin Ibuprofen 400 mg 05/17/24 09:49 05/17/24 10:51 Ibuprofen 400 Mg Tablet PO 05/17/24 09:50 400 mg ONCE ONE Administration Tetanus/Reduced Diphtheria/Acell Pertussis 0.5 ml 05/17/24 09:49 05/17/24 10:51 Tet/Diphth/Pert-Adult 0.5ml Syringe IM 05/17/24 09:50 0.5 ml .ONCE ONE Administration ORDERS Category Date Time Status CBC w/Auto Diff [Complete Blood Count Auto Diff] Stat Lab 05/17/24 11:12 Completed CK [Creatine Kinase] Stat Lab 05/17/24 11:12 Completed CMP [Comprehensive Metabolic Panel] Stat Lab 05/17/24 11:12 Completed HIV Combo Stat Lab 05/17/24 11:12 Completed Hepatitis C Ab Qual. W/ RFX Stat Lab 05/17/24 11:12 Completed Medical Decision Narrative: Patient with history and exam per above presenting for evaluation of discoloration and pain of bilateral feet, with exam consistent with third fourth degree frostbite. This occurs in the setting of PAD. Diagnoses considered include frostbite, rhabdomyolysis, electrolyte abnormality, patient's core temperature above 35 ?C, mentating appropriately, suspect accidental hypothermia. ED workup and treatment included: ED MEDICATIONS Discontinued Medications Generic Name Dose Route Start Last Admin Trade Name Freq PRN Reason Stop Dose Admin Ibuprofen 400 mg 05/17/24 09:49 05/17/24 10:51 Ibuprofen 400 Mg Tablet PO 05/17/24 09:50 400 mg ONCE ONE Administration Tetanus/Reduced Diphtheria/Acell Pertussis 0.5 ml 05/17/24 09:49 05/17/24 10:51 Tet/Diphth/Pert-Adult 0.5ml Syringe IM 05/17/24 09:50 0.5 ml .ONCE ONE Administration ORDERS Category Date Time Status CBC w/Auto Diff [Complete Blood Count Auto Diff] Stat Lab 05/17/24 11:12 Completed CK [Creatine Kinase] Stat Lab 05/17/24 11:12 Completed CMP [Comprehensive Metabolic Panel] Stat Lab 05/17/24 11:12 Completed HIV Combo Stat Lab 05/17/24 11:12 Completed Hepatitis C Ab Qual. W/ RFX Stat Lab 05/17/24 11:12 Completed Patient was additionally placed in 98 ?F water bath to bilateral feet in addition to warmed blankets. He was administered ibuprofen. Labs were independently interpreted by me, significant for CK1 182 Upon reevaluation patient remains with marked discoloration of his bilateral toes, the midfoot in his bilateral lower extremities is slightly improved in color however still cold to touch. Patient will benefit from multidisciplinary care still cold to touch. Patient will benefit from multidisciplinary care at for his accidental hypothermia with resultant frostbite. He was accepted for transfer to [facility]. Critical Care Critical Care Time Critical Care Time: No
--- NOTE | 2024-05-17 09:30 | PC.NURSE ---
Blood glucose via fingerstick is 78.
--- NOTE | 2024-05-17 09:38 | PC.NURSE ---
Rectal temp measured at 96.6.
--- NOTE | 2024-05-17 10:32 | PC.NURSE ---
pt is currently soaking his feet in warm water. per
[2024-05-17] MEDS: TET/DIPHTH/PERT-ADULT 0.5ML SYRINGE 0.5 ML IM (10:51)
[2024-05-17] MEDS: IBUPROFEN 400 MG TABLET PO (10:51)
[2024-05-17 11:25] LABS: Basophils % 0.4 % (0.1-2.0); Eosinophils # 0.1 K/mm3 (0.0-0.4); Eosinophils % 1.3 % (0.1-12.0); Hematocrit 46.9 % (42.0-52.0); Hemoglobin 15.7 g/dL (14.1-18.0); Lymphocytes # 1.4 K/mm3 (0.7-4.5); Lymphocytes % 14.4 % (10-50); Mean Corpuscular HGB Conc 33.5 g/dL (31.8-35.4); Mean Corpuscular Hemoglobin 31.2 pg (27.0-31.2); Mean Corpuscular Volume 93.2 fl (80-94); Mean Platelet Volume 9.1 fl (7.4-10.4); Monocytes # 0.4 K/mm3 (0.1-1.0); Monocytes % 3.7 % (1.7-9.3); Neutrophils # 7.7 K/mm3 (1.8-7.8); Neutrophils % 79.7 % (37.0-80.0); Platelet Count 227 K/mm3 (142-424); Red Blood Count 5.03 M/mm3 (4.60-6.20); Red Cell Distribution Width 13.7 % (11.5-17.5); White Blood Count 9.7 K/mm3 (4.8-10.8)
[2024-05-17 11:27] LABS: Albumin Level 4.6 g/dl (3.5-5.0); Chloride 100 mmol/L (98-107); Potassium 4.6 mmoL/L (3.5-5.1); Sodium 141 mmol/L (136-145)
[2024-05-17 11:30] LABS: Alanine Aminotransferase 21 U/L (12-78); Albumin/Globulin Ratio 1.7 (1.1-1.8); Alkaline Phosphatase 121 U/L (38-126); Anion Gap 22.6 mEq/L (5-15); Aspartate Amino Transferase 34 U/L (17-59); Bilirubin,Total 0.9 mg/dl (0.2-1.3); Blood Urea Nitrogen 22 mg/dl (9-20); Calcium 9.9 mg/dl (8.4-10.2); Carbon Dioxide 23 mmol/L (22.0-30.0); Creatine Kinase 182 U/L (55-170); Creatinine Clearance Estimated 75 mL/min (50-200); Estimated Glomerular Filt Rate 62 ml/min (>60); GFR (African American) 74 ML/MIN (>60); Globulin 2.7 g/dL (1.3-3.2); Glucose 147 mg/dl (74-100); Total Protein,Serum 7.3 g/dl (6.3-8.2)
[2024-05-17 12:28] LABS: HIV Combo NEGATIVE (Negative)
[2024-05-17 12:35] LABS: Hepatitis C Ab Qual. W/ RFX NEGATIVE (Negative)
--- NOTE | 2024-05-17 13:26 | PC.NURSE ---
CALLING [facility] FOR TRANSFER PER FOR SEVERE FROSTBITE ON BOTH FEET
--- NOTE | 2024-05-17 14:05 | PC.NURSE ---
report called to Naima @ [facility]
== END 2024-05-17 16:00 | disposition short-term general hospital (02) ==
PROVIDERS: Emergency Provider Emergency Medicine; PCP Family Medicine
DX: T33.99XA Superficial frostbite of other sites, initial encounter (principal); E11.9 Type 2 diabetes mellitus without complications; M79.604 Pain in right leg; M79.605 Pain in left leg; M79.671 Pain in right foot; M79.672 Pain in left foot; Z23 Encounter for immunization
CPT/HCPCS: 80053; 82550; 85025; 86803; 87389; 90471; 90715; 99284

== ENCOUNTER 2024-06-08 08:00 | Outpatient (RCR) | payer OTHER, SELFPAY ==
--- NOTE | 2024-06-08 16:23 | HMH.RHREAS ---
Rehab Reassessment Rehab OP Re-assessment Start: 06/08/24 10:10 Freq: Status: Active Protocol: Document 06/08/24 16:14 [email or web address] (Rec: 06/08/24 16:23 PHORJIN [id number]) E-signed By Shawn Ordnoez, PT Rehab Re-assessment Subjective Subjective No c/o pain or discomfort in B feet this date. Pt has no been available for appointments for ~2 wks as he was adm to an outside hospital due to B foot frostbite and is no suffering from B great toe wounds, which are new. Objective Objective Notes R lateral delcid wound: L= 3.5 cm, W= 5.0 cm, D= 0.2 cm. R great toe Wound: L= 1.2 cm, W= 2.3 cm, D= 0.1 cm. L great toe wound: L= 0.9 cm, W= 1.0 cm, D= 0.1 cm. Pain: 5/10 R lower leg at worst. TTP: 1/4 lisa-wound skin. Assessment Progress Assessment Slower Than Expected Assessment Notes R lateral delcid wound is healing steadily, but pt has new onset wounds due to frostbite on B feet. Skilled therapy remains indicated to reduce overall wound surface area and aid pt return to PLOF . Patient goals met ST/3 LT/4 Plan Plan Continue per initial POC. Will begin treating new B great toe wounds at this time. Frequency of Therapy 1-2 x/wk Duration of therapy 4 wks Time and Billing Re-Eval Time 12 Re-Eval Billing Units 1 Charge for PT reassessment? Yes PHYSICIAN CERTIFICATION: I certify the specified therapy services for Sunday Talbot are required, authorized, and reviewed every 30 days.
== END 2024-06-08 23:59 | disposition home or self-care (01) ==
LOC: PT 08:00
PROVIDERS: Visit Provider Nurse Practitioner
DX: S81.801A Unspecified open wound, right lower leg, initial encounter (principal)
CPT/HCPCS: 97164; 97597

== ENCOUNTER 2024-07-11 11:00 | Outpatient (RCR) | payer OTHER, SELFPAY ==
--- NOTE | 2024-07-04 10:25 | CARE MANAGER ---
Addendum entered by [facility] 07/06/24 15:58: Patient contacted me after [facility] had contact w/ him. Patient voiced that he is unsure if he is interested in LTC at this time. I have informed him to be expecting a phone call from [facility]. Diana pizarro/ [facility] will follow up w/ this patient. Addendum entered by [facility] 07/06/24 13:18: I have contacted Sarah MESSINA regarding welfare check for this patient. Addendum entered by [facility] 07/06/24 13:05: Multiple attempts to contact this patient: no answer at this time VM left. Addendum entered by [facility] 07/06/24 09:29: Diana pizarro/ [facility] is willing to accept patient and stated that she will make contact w/ patient at home today. Addendum entered by [facility] 07/04/24 13:05: I have a call out to Courtney pizarro/ [facility] and [facility] regarding option of Personal Longterm. I also spoke w/ Carla w/ [facility]. Carla stated that she will speak w/ Director and offer possible options including [facility] and bathing at [facility]. I will continue to follow up w/ these options and patient. Original Note: Received call from Dr. Grissom who states the patient is in outpatient wound and there is concern that perhaps the patient needs LTC. Went to see patient. He states he lost his job and has no income. He has multiple wounds on his bilateral feet/legs. He does have food and heat, but currently no running water. He reports that his landlord is aware and has not had water since March due to a busted pipe. He does have bottled water. He is interested in LTC facility. Provided him with a resource list, highlighting food resources as well as housing. Discussed how we will reach out to facilities to see if he is a candidate for LTC and then get back in touch with him. Wound care is setting up the [facility] for his next wound care appt and his appt with PCP. His phone number is [phone]
--- NOTE | 2024-07-11 14:59 | HMH.RHREAS ---
Rehab Reassessment Rehab OP Re-assessment Start: 07/04/24 10:25 Freq: Status: Active Protocol: Document 07/11/24 14:06 EMY (Rec: 07/11/24 14:59 PHORJIN [id number]) E-signed By Shawn Ordonez, PT [facility] Wound Assessment Tool Assessment Wound size 2=Length x Width 4--<16 sq cm Wound depth 3=Full thickness skin loss involving damage or necrosis of Wound edges 3=Well-defined, not attached to wound base Wound undermining 1=None present Necrotic tissue type 3=Loosely adherent yellow slough Necrotic tissue amount 5=75% to 100% of wound covered Exudate type 5=Purulent: thin or thick, opaque, vargas/yellow, withour without odor Exudate amount 5=Large Skin color surrounding wound 2=Bright red &/or blanches to touch Peripheral tissue edema 1=No swelling or edema Peripheral tissue induration 1=None present Granulation tissue 5=No granulation tissue present Epithelialization 5= < 25% wound covered Wound assessment total score 41 Rehab Re-assessment Subjective Subjective Pt reports no pain at this time in the R lateral ankle, but does have intermittent pain in the plantar R foot. It could be phantom pains or something. Objective Objective Notes R lateral lower leg wound: L= 2.2 cm, W= 5.3 cm, D= 0.1 cm. 100% granulation tissue, possible hyper-granulation on the posterior border this date . L great toe wound: L= 7.0 cm, W= 2.7 cm, D= 0.2 cm. 100% yellow slough noted this date. L great toe wound with large amts of purulent drainage noted. Assessment Progress Assessment Slower Than Expected Assessment Notes Pt has shown improvement with lateral R lower leg wound, but has worsening wound to the L great toe that was not present on evaluation. He continues to have slower than expected wound healing throughout B LE as well. Skilled therapy remains indicated to improve wound healing in order to aid pt return to PLOF. Patient goals met ST/ LT/4 Plan Plan Continue per initial POC with wound care to L great toe as well. Frequency of Therapy 1-2 x/wk Duration of therapy 4 wks Time and Billing Re-Eval Time 12 Re-Eval Billing Units 1 Charge for PT reassessment? Yes PHYSICIAN CERTIFICATION: I certify the specified therapy services for Sunday Talbot are required, authorized, and reviewed every 30 days.
== END 2024-07-11 23:59 | disposition home or self-care (01) ==
LOC: PT 11:00
PROVIDERS: Visit Provider Family Medicine
DX: S81.801A Unspecified open wound, right lower leg, initial encounter (principal)
CPT/HCPCS: 97164; 97597; 97598

== ENCOUNTER 2024-08-01 13:00 | Outpatient (RCR) | payer OTHER, SELFPAY | END 2024-08-01 23:59 | disposition home or self-care (01) | LOC: PT 13:00 | PROVIDERS: Visit Provider Family Medicine | DX: S81.801A Unspecified open wound, right lower leg, initial encounter (principal) | CPT/HCPCS: 97597 ==

== ENCOUNTER 2024-08-01 13:26 | Inpatient (IN) | payer OTHER, SELFPAY ==
--- NOTE | 2024-08-01 13:36 | XR_ITS ---
FINAL REPORT CLINICAL HISTORY: great toe wound, eval osteo COMPARISON: 10/11/2022 FINDINGS: Three views of the right foot show advanced degenerative changes of the midfoot and hindfoot. There is marked cortical thickening of the 3rd metatarsal which could be seen with chronic stress injury, remote fracture, or even chronic infection. There is no evidence of bone destruction. No gas is seen in the soft tissues. IMPRESSION: Chronic changes as above. Reviewed, Interpreted and Dictated by Blessing Lundy MD Transcribed by Isaura Billy Authenticated and [facility]
--- NOTE | 2024-08-01 13:36 | XR_ITS ---
FINAL REPORT CLINICAL HISTORY: great toe wound, exposed bone COMPARISON: 10/11/2022 FINDINGS: Three views of the left foot show significant soft tissue loss of the 1st digit. The tuft is noted to extend beyond the soft tissues. No bone destruction is evident. No gas is seen in the soft tissues. There are moderate degenerative changes of the midfoot and 1st MTP joint. IMPRESSION: No bone destruction with significant soft tissue loss of the 1st digit. Reviewed, Interpreted and Dictated by Blessing Lundy MD Transcribed by Isaura Billy Authenticated and [facility]
[2024-08-01 13:51] VITALS: BP 133/77; PULSE 66; RESP 17; TEMP 36.6; O2SAT 100; BMI 28.7
[2024-08-01 13:55] LABS: Basophils % 0.3 % (0.1-2.0); Eosinophils # 0.2 K/mm3 (0.0-0.4); Eosinophils % 2.5 % (0.1-12.0); Hematocrit 40.2 % (42.0-52.0); Hemoglobin 13.1 g/dL (14.1-18.0); Lymphocytes # 0.9 K/mm3 (0.7-4.5); Lymphocytes % 15.2 % (10-50); Mean Corpuscular HGB Conc 32.6 g/dL (31.8-35.4); Mean Corpuscular Hemoglobin 31.2 pg (27.0-31.2); Mean Corpuscular Volume 95.7 fl (80-94); Mean Platelet Volume 8.9 fl (7.4-10.4); Monocytes # 0.4 K/mm3 (0.1-1.0); Monocytes % 5.8 % (1.7-9.3); Neutrophils # 4.6 K/mm3 (1.8-7.8); Nucleated Red Blood Cells # 0 10^3/uL; Nucleated Red Blood Cells % 0 %; Platelet Count 207 K/mm3 (142-424); Red Cell Distribution Width-SD 49.1 fL; White Blood Count 6.1 K/mm3 (4.8-10.8)
--- NOTE | 2024-08-01 13:57 | ED_ITS ---
Discharge Plan Disposition Patient Disposition: Admitted Condition: Good Clinical Impressions Clinical Impression: Osteomyelitis of great toe of left foot Discharge ED Provider: Marlene Deleon General Adult HPI General Chief complaint: Wound/Laceration Stated complaint: Left big toe has bone sticking out Time Seen by Provider: 08/01/24 13:30 History of Present Illness HPI narrative: This patient is a 63-year-old male with a history of type 2 diabetes, hypertension, hyperlipidemia, PAD, CAD, and prior frostbite to his bilateral feet/toes following with wound care on an outpatient basis for management presenting from wound care. They expressed concern that he has a bone protruding through the wound of his left great toe. Patient got frostbite back in April after walking through a lot of cold snow. He has been following with wound care/physical therapy who states that his right great toe is doing a whole lot better. Patient denies any concerns or complaints and states that his wound has not been like that very long. On medical record review, it was that he was last seen in wound care 07/25/24. He denies any systemic symptoms such as fevers, chills, chest pain, shortness of breath, or other concerns. Related Data Home Medications ?Medication ?Instructions ?Recorded ?Confirmed allopurinol 300 mg tablet 300 mg PO DAILY 02/28/24 04/03/24 amlodipine 5 mg tablet 5 mg PO DAILY 02/28/24 04/03/24 aspirin 81 mg tablet,delayed 81 mg PO DAILY 02/28/24 04/03/24 release carvedilol 3.125 mg tablet 3.125 mg PO BID 02/28/24 04/03/24 clopidogrel 75 mg tablet 75 mg PO DAILY 02/28/24 04/03/24 ertugliflozin 5 mg tablet 5 mg PO DAILY 02/28/24 04/03/24 (Steglatro) glimepiride 4 mg tablet 4 mg PO DAILY 02/28/24 04/03/24 metformin 500 mg tablet 500 mg PO BID 02/28/24 04/03/24 omeprazole 40 mg capsule,delayed 40 mg PO DAILY 02/28/24 04/03/24 release sacubitril 24 mg-valsartan 26 mg 1 tab PO BID 02/28/24 04/03/24 tablet (Entresto) ticagrelor 90 mg tablet (Brilinta) 90 mg PO BID 02/28/24 04/03/24 vericiguat 10 mg tablet (Verquvo) 10 mg PO DAILY 02/28/24 04/03/24 Previous Rx's ?Medication ?Instructions ?Recorded ondansetron 4 mg disintegrating 4 mg PO Q6H PRN nausea and 04/14/24 tablet vomiting 5 days #20 tabs rosuvastatin 40 mg tablet (Crestor) 40 mg PO DAILY #90 tabs 07/23/24 Allergies Allergy/AdvReac Type Severity Reaction Status Date / Time No Known Allergies Allergy Verified 04/03/24 13:16 [facility] Disclaimer: The information contained in this section may have been updated after the patient was seen, as this information can be updated by other users. Medical History Nonhealing skin ulcer Abnormal echocardiogram E. coli UTI Fracture of fifth metatarsal bone of right foot Foot lesion Severe sepsis CHF (congestive heart failure) Abnormal ECG LV dysfunction Ischemic cardiomyopathy Coronary artery disease COVID-19 Gout Hypertension Hyperlipidemia Diabetes mellitus, type 2 Onychomycosis Onychodystrophy Acquired metatarsus varus Abrasion of foot, right Fracture of fourth metatarsal bone of right foot Vaccine counseling Immunization due Blister of foot without infection Surgical History S/P coronary artery stent placement Hx of heart artery stent History of cardiac cath History of tonsillectomy Family History Other Coronary artery disease Diabetes Hyperlipidemia Social History Smoking Status: Never smoker alcohol intake: never current occupational status: employed Travel in the last 8 weeks: None Have you lived/traveled outside US in past 30 days?: No Contact w/someone who lives/traveled outside US past 30 days?: No Exposure to someone with infectious disease in past 14 days?: No Do you have a fever (greater than 100.4 F or 38 C)?: No Have you tested positive for COVID-19: No Exposed to someone with COVID-19 in past 14 days?: No Do you have a sore throat?: No Do you have a cough?: No Do you have any weakness?: No Do you have any diarrhea?: No Are you experiencing any unusual bleeding?: No Do you have any muscle aches/pain?: No Do you have any abdominal pain?: No Are you experiencing loss of taste or smell?: No Other Medical History Have you received the Flu Vaccine for this season: No Have you received the Pneumonia Vaccine: No ROS Obtained: Yes All systems reviewed & no additional complaints except as documented Physical Exam General General appearance: alert and in no apparent distress Comment: disheveled, unkempt Head Head exam: atraumatic and normocephalic Eye Eye exam: Present normal appearance, PERRL and EOMI ENT ENT exam: Present normal exam, normal oropharynx, mucous membranes moist and normal external ear exam Neck Neck exam: Present normal inspection, full ROM and trachea midline; Absent tenderness Chest Chest inspection: Present normal inspection and symmetric chest wall rise; Absent tenderness Respiratory Respiratory exam: Present normal lung sounds bilaterally; Absent respiratory distress, wheezes, stridor or accessory muscle use Cardiovascular Cardiovascular exam: Present regular rate and normal rhythm Abdominal Exam Abdominal exam: Present soft; Absent distention, tenderness or guarding Extremities Exam Extremities exam: Present full ROM, normal capillary refill, edema and other (R great toe wound with healthy granulation tissue, L great toe with significant erosion of soft tissue and protrusion of bone through end of his toe, wound with purulence and erythema); Absent tenderness Back Exam Back exam: Present normal inspection and full ROM; Absent tenderness Neurological Exam Neurological exam: Present alert, oriented X3, CN II-XII intact and normal gait; Absent motor sensory deficit Psychiatric Psychiatric exam: Present normal affect and normal mood Skin Skin exam: Present warm and dry Medical Decision Making Medical Records Medical records reviewed: Yes I reviewed the patient's medical records. Screening: Per USPSTF and CDC recommendations, given the prevalence of disease in our region, it is our hospital?s policy to screen for HIV and viral Hepatitis for all patients aged 18 and over and those with ongoing risk factors. James Inquiry Pt receiving controlled substance: No Vital Signs: 08/01/24 13:51 08/01/24 14:00 08/01/24 14:31 Temperature 97.9 F 97.7 F 97.9 F Temperature Source Oral Oral Oral Pulse Rate 68 Pulse Rate [Left Radial] 66 68 Respiratory Rate 17 17 17 Blood Pressure 128/75 Blood Pressure [Right Arm] 133/77 128/75 Blood Pressure Mean [Right Arm] 95 92 Blood Pressure Source Automatic Cuff Blood Pressure Source [Right Arm] Automatic Cuff Automatic Cuff Blood Pressure Position [Right Arm] Sitting 02 Sat by Pulse Oximetry 100 98 Oxygen Delivery Method Room Air Room Air Room Air Lab Data Lab results reviewed: Yes I reviewed the patient's lab results. Lab Results 08/01/24 13:45: WBC 6.1, RBC 4.20 L, Hgb 13.1 L, Hct 40.2 L, MCV 95.7 H, MCH 31.2, MCHC 32.6, RDW 14.0, Plt Count 207, MPV 8.9, Neut % (Auto) 76.0, Lymph % (Auto) 15.2, [place] % (Auto) 5.8, Eos % (Auto) 2.5, Baso % (Auto) 0.3, Neut # (Auto) 4.6, Lymph # (Auto) 0.9, [place] # (Auto) 0.4, Eos # (Auto) 0.2, Baso # (Auto) 0.0, Sodium 140, Potassium 4.3, Chloride 104, Carbon Dioxide 26, Anion Gap 14.3, BUN 13, Creatinine 1.00, Estimated Creat Clear 100, Estimated GFR 76, Est GFR ( Amer) 92, Glucose 156 H, Calcium 9.2, Total Bilirubin 0.5, AST 21, ALT 10 L, Alkaline Phosphatase 112, C-Reactive Protein 9.7 H, Total Protein 6.7, Albumin 4.0, Globulin 2.7, Albumin/Globulin Ratio 1.5 08/01/24 13:45 08/01/24 13:45 Orders (Tests/Meds): ED MEDICATIONS Generic Name Dose Route Start Last Admin Trade Name Freq PRN Reason Stop Dose Admin Acetaminophen 650 mg 08/01/24 14:16 Acetaminophen 325mg Tab PO 08/31/24 14:15 Q6HP PRN Fever or Mild Pain (1-3) Vancomycin/PEG/NADA/Lysine/Water 1.5 gm in 300 mls @ 150 mls/hr 08/01/24 14:15 Vancomycin 1.5gm/300ml (Peg) Premix IV 08/01/24 16:14 ONCE ONE Discontinued Medications Generic Name Dose Route Start Last Admin Trade Name Freq PRN Reason Stop Dose Admin Piperacillin Sod/Tazobactam 50 mls @ 100 mls/hr 08/01/24 13:36 08/01/24 14:25 Sod 3.375 gm/ Sodium Chloride IV 08/01/24 14:05 100 mls/hr ONCE ONE Administration Miscellaneous 1 each 08/01/24 13:45 Vancomycin Consult Request NOTAPPLIC 08/31/24 13:44 CONSULT PHARMACY KIRA ORDERS Category Date Time Status Podiatry Consult [Consult to Podiatry] [CONS] Routine Cons 08/01/24 13:38 Active XR foot LT min 3V Stat Exams 08/01/24 13:36 Completed XR foot RT min 3V Stat Exams 08/01/24 13:36 Completed C-Reactive Protein Stat Lab 08/01/24 13:45 Completed CBC w/Auto Diff [Complete Blood Count Auto Diff] Stat Lab 08/01/24 13:45 Results CMP [Comprehensive Metabolic Panel] Stat Lab 08/01/24 13:45 Completed ESR [Erythrocyte Sedimentation Rate] Stat Lab 08/01/24 13:45 Results Hemoglobin A1C Stat Lab 08/01/24 13:45 Received Blood Culture Stat Micro 08/01/24 15:14 Received Wound Culture and Gram Stain Stat Micro 08/01/24 14:17 Received Medical Decision Narrative: In summary, this patient is a 63-year-old male presenting to the Emergency Department for evaluation of left toe wound with bone protruding through the wound. Differential diagnoses considered include but are not limited to osteomyelitis, cellulitis, abscess, sepsis, diabetic foot wound. Ruling out the most morbid conditions drove assessment. It should be noted patient's history includes diabetes, PAD, CAD which likely are not at goal therapy. This complicates all aspects of care by increasing patient's risk for morbidity. I reviewed patient's past medical records and noted prior evaluation for frostbite back in April as well as prior wound care evaluations. On exam, the patient is sitting upright in no acute distress with reassuring vital signs on cardiac telemetry. He has a wound to the right great toe that looks good, but left great toe wound looks infected with significant erosion of the soft tissues and exposure of bone through the tip of the toe. Exam is highly concerning for osteomyelitis. Workup included labs including blood cultures as well as x-rays of the bilateral feet. Patient was given IV vancomycin and Zosyn for broad-spectrum antibiotic coverage. I had an interactive discussion with Dr. Trujillo with podiatry who is taking the patient to the OR for amputation. I explained this to the patient who expressed understanding and agreement. Patient last ate at 12 PM, so anesthesia plans to proceed with local anesthetic and light sedation. Patient understands this. I independently interpreted x-rays prior to the radiologist read and noted significant erosion of the soft tissues of the left great toe with bony protrusion, I do not see any other obvious bone breakdown. Please see their read for final interpretation. Labs were obtained that demonstrated reassuring CBC with only mild anemia, no significant leukocytosis.. Remainder of labs pending at time of transport to OR and admission. I had had an interactive discussion with Dr. Pearce with podiatry who is taking the patient to the OR right away for further evaluation and management. I had an interactive discussion with Dr. Grissom who will admit the patient afterward. Critical Care Critical Care Time Critical Care Time: No
[2024-08-01 14:00] VITALS: BP 128/75; PULSE 68; RESP 17; TEMP 36.5; O2SAT 98
--- NOTE | 2024-08-01 14:00 | PC.NURSE ---
Dr. Deleon speaking with Dr. Pearce
--- NOTE | 2024-08-01 14:06 | PC.NURSE ---
Dr Deleon at bedside to discuss surgical request of Dr Trujillo. Anesthesiology has cleared pt for procedure.
--- NOTE | 2024-08-01 14:13 | PC.NURSE ---
placed pt in a gown. His coats, clothes, and belongings placed in pt bags. Collecting 2nd blood culture
[2024-08-01 14:14] LABS: Chloride 104 mmol/L (98-107)
[2024-08-01 14:15] LABS: Potassium 4.3 mmoL/L (3.5-5.1); Sodium 140 mmol/L (136-145)
[2024-08-01 14:17] LABS: Alanine Aminotransferase 10 U/L (12-78); Anion Gap 14.3 mEq/L (5-15); Aspartate Amino Transferase 21 U/L (17-59); Blood Urea Nitrogen 13 mg/dl (9-20); Carbon Dioxide 26 mmol/L (22.0-30.0); Creatinine Clearance Estimated 100 mL/min (50-200); Estimated Glomerular Filt Rate 76 ml/min (>60); GFR (African American) 92 ML/MIN (>60)
[2024-08-01 14:18] LABS: Albumin/Globulin Ratio 1.5 (1.1-1.8); Alkaline Phosphatase 112 U/L (38-126); Bilirubin,Total 0.5 mg/dl (0.2-1.3); Calcium 9.2 mg/dl (8.4-10.2); Globulin 2.7 g/dL (1.3-3.2); Glucose 156 mg/dl (74-100); Total Protein,Serum 6.7 g/dl (6.3-8.2)
[2024-08-01 14:24] LABS: C-Reactive Protein 9.7 mg/L (0-4)
[2024-08-01] MEDS: PIPERACILLIN/TAZO 3.375 GM in 0.9 % SODIUM CHLORIDE 50 ML IV (14:25)
--- NOTE | 2024-08-01 14:25 | PC.NURSE ---
2nd set of blood culture collected at 1423. Zosyn began at 1425. Pt to surgery at this time. Gave Vancomycin abx to Monika Kay RN
--- NOTE | 2024-08-01 14:26 | PC.NURSE ---
pt handoff given to Eamon, RN and pt transported to OR via stretcher
[2024-08-01 14:31] VITALS: BP 128/75; PULSE 68; RESP 17; TEMP 36.6; O2SAT 98
--- NOTE | 2024-08-01 14:42 | EXP.POD.CONS ---
History of Present Illness *Admission Date: 08/01/24 *Reason for visit:: B/L DFU, Left hallux OM *History of present illness: Patient is a 63-year-old male presenting to the Emergency Department for evaluation of left toe wound with bone protruding through the wound. Patient reports he had frostbite to both feet in April. He has been seeing [facility] wound care clinic. Reports the right foot has improved significantly. Reports he went to wound care today and they saw a bone exposed to the left great toe and sent him to the ER. Patient has comorbidities of diabetes, peripheral neuropathy, gout, cardiac history, PAD. He does have a history of cardiac cath and lower extremity stent. [facility] Disclaimer: The information contained in this section may have been updated after the patient was seen, as this information can be updated by other users. Medical History Nonhealing skin ulcer Abnormal echocardiogram E. coli UTI Fracture of fifth metatarsal bone of right foot Foot lesion Severe sepsis CHF (congestive heart failure) Abnormal ECG LV dysfunction Ischemic cardiomyopathy Coronary artery disease COVID-19 Gout Hypertension Hyperlipidemia Diabetes mellitus, type 2 Onychomycosis Onychodystrophy Acquired metatarsus varus Abrasion of foot, right Fracture of fourth metatarsal bone of right foot Vaccine counseling Immunization due Blister of foot without infection Surgical History S/P coronary artery stent placement Hx of heart artery stent History of cardiac cath History of tonsillectomy Family History Other Coronary artery disease Diabetes Hyperlipidemia Social History Smoking Status: Never smoker alcohol intake: never current occupational status: employed Travel in the last 8 weeks: None Have you lived/traveled outside [place] in past 30 days?: No Contact w/someone who lives/traveled outside US past 30 days?: No Exposure to someone with infectious disease in past 14 days?: No Do you have a fever (greater than 100.4 F or 38 C)?: No Have you tested positive for COVID-19: No Exposed to someone with COVID-19 in past 14 days?: No Do you have a sore throat?: No Do you have a cough?: No Do you have any weakness?: No Do you have any diarrhea?: No Are you experiencing any unusual bleeding?: No Do you have any muscle aches/pain?: No Do you have any abdominal pain?: No Are you experiencing loss of taste or smell?: No Review of Systems Review of Systems Review of systems:: unable to obtain Constitutional Constitutional: Reports system reviewed and no additional complaints, except as documented, Denies body ache(s), Denies chills, Reports fatigue and Reports poor appetite Eyes Eyes: Reports system reviewed and no additional complaints, except as documented, Denies blurry vision and Denies diplopia ENT Ears, Nose, Mouth, and Throat: Reports system reviewed and no additional complaints, except as documented and Reports vertigo *Cardiovascular Cardiovascular: Reports system reviewed and no additional complaints, except as documented, Denies chest pain and Denies dyspnea *Respiratory Respiratory: Reports system reviewed and no additional complaints, except as documented, Denies chest congestion, Denies cough and Denies dyspnea *Gastrointestinal Gastrointestinal: Reports system reviewed and no additional complaints, except as documented, Denies abdominal pain, Reports nausea and Denies vomiting *Genitourinary Genitourinary: Reports system reviewed and no additional complaints, except as documented *Musculoskeletal Musculoskeletal: Reports system reviewed and no additional complaints, except as documented and Reports numbness Integumentary/Breasts Skin/Breast: Reports system reviewed and no additional complaints, except as documented and Reports skin ulcer (R hallux, L 5th toe, L hallux ) *Neurologic Neurologic: Reports system reviewed and no additional complaints, except as documented, Reports numbness, Reports paresthesias and Reports vertigo Psychiatric Psychiatric: Reports system reviewed and no additional complaints, except as documented Endocrine Endocrine: Reports system reviewed and no additional complaints, except as documented and Reports fatigue Hematologic/Lymphatic Hematologic/Lymphatic: Reports system reviewed and no additional complaints, except as documented Allergic/Immunologic Allergic/Immunologic: Reports system reviewed and no additional complaints, except as documented Meds Home Medications and Allergies Home Medications ?Medication ?Instructions ?Recorded ?Confirmed ?Type allopurinol 300 mg tablet 300 mg PO DAILY 02/28/24 04/03/24 History amlodipine 5 mg tablet 5 mg PO DAILY 02/28/24 04/03/24 History aspirin 81 mg tablet,delayed 81 mg PO DAILY 02/28/24 04/03/24 History release carvedilol 3.125 mg tablet 3.125 mg PO BID 02/28/24 04/03/24 History clopidogrel 75 mg tablet 75 mg PO DAILY 02/28/24 04/03/24 History ertugliflozin 5 mg tablet 5 mg PO DAILY 02/28/24 04/03/24 History (Steglatro) glimepiride 4 mg tablet 4 mg PO DAILY 02/28/24 04/03/24 History metformin 500 mg tablet 500 mg PO BID 02/28/24 04/03/24 History omeprazole 40 mg capsule,delayed 40 mg PO DAILY 02/28/24 04/03/24 History release sacubitril 24 mg-valsartan 26 mg 1 tab PO BID 02/28/24 04/03/24 History tablet (Entresto) ticagrelor 90 mg tablet (Brilinta) 90 mg PO BID 02/28/24 04/03/24 History vericiguat 10 mg tablet (Verquvo) 10 mg PO DAILY 02/28/24 04/03/24 History ondansetron 4 mg disintegrating 4 mg PO Q6H PRN nausea and 04/14/24 Rx tablet vomiting 5 days #20 tabs rosuvastatin 40 mg tablet (Crestor) 40 mg PO DAILY #90 tabs 07/23/24 Rx New Prescriptions to Start Prescriptions: Allergies Allergy/AdvReac Type Severity Reaction Status Date / Time No Known Allergies Allergy Verified 04/03/24 13:16 Exam (Inpt) Vital signs and Labs for Last 24 Hours: Temp Pulse Resp BP Pulse Ox O2 Del Method 97.9 F 68 17 128/75 100 Room Air 08/01/24 14:31 08/01/24 14:31 08/01/24 14:31 08/01/24 14:31 08/01/24 13:51 08/01/24 14:31 Laboratory Results - last 24 hr 08/01/24 13:45: WBC 6.1, RBC 4.20 L, Hgb 13.1 L, Hct 40.2 L, MCV 95.7 H, MCH 31.2, MCHC 32.6, RDW 14.0, Plt Count 207, MPV 8.9, Neut % (Auto) 76.0, Lymph % (Auto) 15.2, Ford % (Auto) 5.8, Eos % (Auto) 2.5, Baso % (Auto) 0.3, Neut # (Auto) 4.6, Lymph # (Auto) 0.9, Ford # (Auto) 0.4, Eos # (Auto) 0.2, Baso # (Auto) 0.0, Sodium 140, Potassium 4.3, Chloride 104, Carbon Dioxide 26, Anion Gap 14.3, BUN 13, Creatinine 1.00, Estimated Creat Clear 100, Estimated GFR 76, Est GFR ( Amer) 92, Glucose 156 H, Calcium 9.2, Total Bilirubin 0.5, AST 21, ALT 10 L, Alkaline Phosphatase 112, C-Reactive Protein 9.7 H, Total Protein 6.7, Albumin 4.0, Globulin 2.7, Albumin/Globulin Ratio 1.5 I & O for Labs for Last 24 Hours: Intake & Output 07/30/24 07/31/24 08/01/24 08/02/24 11:59 11:59 11:59 11:59 Intake Total 100 / 100 Balance 100 / 100 Weight 200 lb Constitutional: Present no acute distress Head: Present normocephalic Neck: Present normal inspection Respiratory: Present normal respiratory effort Cardiac: Present pedal pulses present (decreased) GI: Present soft Rectal (male): Present deferred (male): Present deferred Extremities: Present normal inspection, full ROM and edema; Absent normal capillary refill Comment:: LLE 2+ pitting edema Comment:: Right hallux DFU noted to dorsal hallux. Wound: 100% granular. Left 5th toe DFU noted. Wound: 100% granular. Left hallux open wound with exposed distal phalanx bone. (+) malodor, drainage and obvious signs of bone erosion and cellulitis. No debridement. Measurements will be taken during surgery. Neuro: Present Motor Function Intact, Sensory Function Intact, oriented x 3, tone normal and moves all extremities Ankle: left: swelling (2+ pitting edema to LLE) and bilateral: normal inspection Feet/Toes: left: swelling and bilateral: normal inspection and bilateral: wound (b/l hallux DFU, L 5th toe DFU) Inspection: Present nail disorder, skin break, infection and ulceration Pulses: L dorsalis pedis pulse: diminished, R dorsalis pedis pulse: diminished, L posterior tibial pulse: diminished and R posterior tibial pulse: diminished CFT: dim: CFT Results Labs 08/01/24 13:45 08/01/24 13:45 Labs: Abnormal lab results 08/01/24 Range/Units 13:45 RBC 4.20 L (4.60-6.20) M/mm3 Hgb 13.1 L (14.1-18.0) g/dL Hct 40.2 L (42.0-52.0) % MCV 95.7 H (80-94) fl Glucose 156 H (74-100) mg/dl ALT 10 L (12-78) U/L C-Reactive Protein 9.7 H (0-4) mg/L H & H 08/01/24 Range/Units 13:45 Hgb 13.1 L (14.1-18.0) g/dL Hct 40.2 L (42.0-52.0) % All other labs normal. Diagnostic results Ankle/Foot x-ray: report reviewed (pending) and image reviewed (R foot no SOI, L hallux distal tuft bone erosion) Assessment and Plan *Assessment and plan (1) Osteomyelitis of great toe of left foot: Status: Acute Category: Medical Code(s): M86.9 - Osteomyelitis, unspecified (2) Cellulitis of left foot: Status: Acute Category: Medical Code(s): L03.116 - Cellulitis of left lower limb (3) Diabetic ulcer of right foot: Status: Acute Qualifiers: Diabetes mellitus type: type 2 Diabetic foot ulcer location: other Non-pressure ulcer stage: with fat layer exposed Qualified Code(s): E11.621 - Type 2 diabetes mellitus with foot ulcer; L97.512 - Non-pressure chronic ulcer of other part of right foot with fat layer exposed Category: Medical Code(s): E11.621 - Type 2 diabetes mellitus with foot ulcer; L97.519 - Non-pressure chronic ulcer of other part of right foot with unspecified severity (4) Diabetic ulcer of left foot: Status: Acute Qualifiers: Diabetes mellitus type: type 2 Diabetic foot ulcer location: other Non-pressure ulcer stage: with fat layer exposed Qualified Code(s): E11.621 - Type 2 diabetes mellitus with foot ulcer; L97.522 - Non-pressure chronic ulcer of other part of left foot with fat layer exposed Category: Medical Code(s): E11.621 - Type 2 diabetes mellitus with foot ulcer; L97.529 - Non-pressure chronic ulcer of other part of left foot with unspecified severity (5) Diabetes mellitus with diabetic neuropathy: Status: Acute Qualifiers: 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 Patient has history of frostbite to both feet back in April. He was actively seeing [facility] wound care clinic. At his appointment today he had exposed left great toe bone and was sent to the ER. Patient reports he lives alone. Does have significant medical history including diabetes, peripheral neuropathy, PAD, extensive cardiac history. Radiographs of the both feet were reviewed and discussed with the patient. X-rays independently evaluated by myself. 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 History of third metatarsal fracture with bone thickening. 3 views left foot showed bone extending beyond soft tissue with erosion of the distal tuft of the left great toe. Blood cultures and labs pending. We discussed conservative versus surgical treatment options. Conservative treatment options include local wound care, oral and IV antibiotics, change in shoe wear, taping/padding, and off-loading. Discussed that patient would benefit from a wider and deeper shoe wear to accommodate the ulcer deformity. We discussed surgical intervention for amputation of the left great toe. Patient understands that there is a chance that the toes can migrate to fill the gap or the foot may change shape after surgery. Patient also understands that they could have wound healing complications including delayed healing and infection. Discussed increased risk due to history of PAD and non-compliance. We discussed that if the wound does not heal, it is possible that they may need a more proximal amputation and could result in further loss of digits, loss of partial foot or loss of leg. We discussed the risks and benefits in great detail. Other surgical risks include: prolonged pain and swelling, further infection requiring oral or IV antibiotics, delay in healing of soft tissue or bone, nerve or blood vessel damage, CRPS/RSD, DVT/PE, anesthesia complications, and even . All questions answered. Patient verbalized understanding. Verbal and written consent obtained. NPO now. Plan for surgery today: b/l foot wound debridements, left hallux amputation. Admission per Dr Taylor. Podiatry consult. Plan for broad spectrum IV Abx: Aj Freeman. Plan for Podiatry dressing change in am.
--- NOTE | 2024-08-01 14:43 | PC.NURSE ---
Lab called and has rejected the 2nd set of blood cultures d/t not enough blood sample . Lab asking to cancel the 2nd set versus er collecting sample. I let them know he is in OR currently and Dr Deleon does want the 2nd set. I asked Lab to contact OR to see if a nurse could obtain, otherwise they will need to obtain themselves.
[2024-08-01 15:00] VITALS: BP 128/75; PULSE 68; RESP 17; TEMP 36.6; O2SAT 100
--- NOTE | 2024-08-01 15:05 | P.OP_ITS ---
Date of procedure: 08/01/24 Pre-op Diagnosis:: Left hallux osteomyelitis Left foot cellulitis Left 5th toe DFU Right hallux DFU Right ankle ulcer Post-op Diagnosis:: Same Procedure performed:: Right hallux wound debridment Surgeon:: Odette Trujillo DPM MANAGER HOTEL:: Ronald Ospina Anesthesia: local Estimated blood loss (mL): 20 Clinical Note:: Patient is a 63-year-old diabetic male who presents to the ER with exposed left hallux toe bone, significant edema and malodor. Patient has history of frostbite to both feet back in April. He was actively seeing [facility] wound care clinic. At his appointment today he had exposed left great toe bone and was sent to the ER. Patient reports he lives alone. Does have significant medical history including diabetes, peripheral neuropathy, PAD, extensive cardiac history. Radiographs of the both feet were reviewed and discussed with the patient. X-rays independently evaluated by myself. 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 History of third metatarsal fracture with bone thickening. 3 views left foot showed bone extending beyond soft tissue with erosion of the distal tuft of the left great toe. Blood cultures and labs pending. We discussed conservative versus surgical treatment options. Conservative treatment options include local wound care, oral and IV antibiotics, change in shoe wear, taping/padding, and off-loading. Discussed that patient would benefit from a wider and deeper shoe wear to accommodate the ulcer deformity. We discussed surgical intervention for amputation of the left great toe. Patient understands that there is a chance that the toes can migrate to fill the gap or the foot may change shape after surgery. Patient also understands that they could have wound healing complications including delayed healing and infection. Discussed increased risk due to history of PAD and non-compliance. We discussed that if the wound does not heal, it is possible that they may need a more proximal amputation and could result in further loss of digits, loss of partial foot or loss of leg. We discussed the risks and benefits in great detail. Other surgical risks include: prolonged pain and swelling, further infection requiring oral or IV antibiotics, delay in healing of soft tissue or bone, nerve or blood vessel damage, CRPS/RSD, DVT/PE, anesthesia complications, and even . All questions answered. Patient verbalized understanding. Verbal and written consent obtained. Operative findings:: Right hallux DFU noted to dorsal hallux. Open wound to right lateral ankle. Left 5th toe DFU noted. Wound: 100% yellow fibrotic. Left hallux open wound with exposed distal phalanx bone. (+) malodor, drainage and obvious signs of bone erosion and cellulitis. Purulence drainage to distal great left toe, wound culture taken. Sharp excisional full-thickness debridement with 15 blade and forceps. Post debridement: Right hallux DFU: 100% granular, 0.8 x 0.4 x 0.2cm, thru skin into subq. Right lateral ankle DFU: 100% granular, 3.1 x 2.8 x 0.2cm, thru skin into subq. Tissue path taken from ankle. Post debridement, Left 5th toe DFU: 100% granular, 0.8 x 0.4 x 0.3cm, thru skin into subq. Left hallux amputation. First metatarsal bone had some degenerative changes but no obvious signs of osteomyelitis to the first met head. Infection seems localized to the distal left great toe. No sinus tracking or purulence extending past the first metatarsal. Operative note:: On this date and time patient was deemed an appropriate surgical candidate. With informed consent signed, the patient was taken to the operating theater. The patient was positioned supine. Versed/MAC anesthesia was induced. No tourniquet used. Pre-op left hallux and ankle block given with 20 cc 0.5% marcaine plain. Right hallux and lateral ankle DFU wound debridement x2: Right hallux DFU and lateral ankle were sharply excisionally debrided with a 15 blade and forceps full-thickness through skin into subcutaneous tissue. Post debridement: See operative findings for measurements. No signs of infection noted. Betadine soaked gauze dry sterile dressing applied. Left 5th toe DFU wound debridement: The left lower extremity was prepped and drapped in normal sterile fashion. Left fifth toe DFU was sharply excisionally debrided with a 15 blade and curette full-thickness through skin into subcutaneous tissue. Post debridement: See operative findings for measurements. No signs of infection noted to 5th toe ulcer. Vanco powder applied. Left foot irrigation and debridement, hallux amputation: Cellulitis is noted extending to hallux extending to 1st MTPJ. A fish mouth incision was mapped out. Utilizing a 15 blade dissection was carried down sharply to the level of the bone around the distal phalanx, which was disarticulated from the proximal phalanx. Distal phalanx sent for bone culture. There was creamy white purulent drainage coming from the joint. Wound culture taken. The proximal phalanx head was crumbly so decision was made to remove the entire toe. The proximal phalanx was disarticulated from the metatarsal head. The proximal phalanx bone was soft and crumbly and had a slight malodor to it. Proximal phalanx sent for bone path. The first met head was intact with no cortical erosions, discoloration or obvious signs of osteomyelitis. There were some degenerative changes consistent with osteoarthritis noted. Next gentamicin irrigation was used to flush the wound. The wound was reexplored and no further signs of infection noted. No sinus tracking. Bleeding controlled. Vessels ligated with electrocautery as there was some blood loss. Vancomycin powder inserted. Vicryl used to close deep tissue over the first metatarsal head. Prolene was used to close skin in an interrupted simple suture fashion. The wounds were cleansed. 10cc 0.5% Marcaine plain inserted around the incision site. Vancomycin powder inserted along the incision. Betadine soaked gauze, dry sterile dressing was then applied to the left foot. The patient appeared to tolerate procedure and local anesthesia well without complication. He was transferred to the floor with vital signs stable and neurovascular status intact. Materials: 1g Vanco powder, Prolene Discharge/Plan: Admit per Dr Grissom. Podiatry to consult. Transfer to the floor. Patient is to maintain dressing clean dry and intact. Continue broad spectrum IV antibiotics: Vanco, Zosyn. Partial weight bearing to the left heel in short fracture boot vs post op shoe with walker. FWB to right foot. Obtain post op films, left foot, 3 views. Plan for dressing change tomorrow by Podiatry. Condition: stable Disposition: floor Specimens:: Path: Right ankle tissue path Left distal great toe Left proximal phalanx bone Micro: Left distal phalanx bone culture Complications:: None
--- NOTE | 2024-08-01 16:21 | PC.NURSE ---
arrived by maria esther from surgery @16:19
--- NOTE | 2024-08-01 16:27 | XR_ITS ---
PROCEDURE INFORMATION: Exam: XR Left Foot Exam date and time: 08/01/2024 5:24 PM Age: 63 years old Clinical indication: Screening exam; S/P left hallux amp; Prior surgery; Surgery date: Post-operative (0-2 days) TECHNIQUE: Imaging protocol: Radiologic exam of the left foot. Views: 3 or more views. COMPARISON: CR XR FOOT LT MIN 3V 08/01/2024 2:01 PM FINDINGS: Bones/joints: Postsurgical changes compatible with great toe amputation with appropriate soft tissue swelling. Soft tissues: See Bones/joints finding. IMPRESSION: Postsurgical changes compatible with great toe amputation with appropriate soft tissue swelling.
[2024-08-01 16:30] LABS: Erythrocyte Sedimentation Rate 22 mm/hr (0-20)
[2024-08-01 17:21] VITALS: BP 141/77; PULSE 65; RESP 18; TEMP 37; O2SAT 99
--- NOTE | 2024-08-01 17:23 | P.PN_ITS ---
Subjective *Date: 08/01/24 *Time: 17:23 Interval history: Patient is back from the OR and eating his supper. He has no complaints at this time. Medical Exam Vital signs and Labs for Last 24 Hours: Vital Signs Temp Pulse Pulse Resp BP BP Pulse Ox 08/01/24 17:21 98.6 F 65 18 141/77 H 99 08/01/24 17:00 08/01/24 16:21 08/01/24 15:00 97.9 F 68 17 128/75 100 08/01/24 14:31 97.9 F 68 17 128/75 08/01/24 14:00 97.7 F 68 17 128/75 98 08/01/24 13:51 97.9 F 66 17 133/77 100 O2 Del Method 08/01/24 17:21 Room Air 08/01/24 17:00 Room Air 08/01/24 16:21 Room Air 08/01/24 15:00 Room Air 08/01/24 14:31 Room Air 08/01/24 14:00 Room Air 08/01/24 13:51 Room Air Intake and Output 08/01/24 08/01/24 08/01/24 07:59 15:59 23:59 Intake Total 100 / 100 Balance 100 / 100 Intake: Intake, Total IV Amount 100 / 100 Other: Weight 200 lb Patient Weight 08/01/24 23:59 Weight 200 lb Laboratory Results - last 24 hr 08/01/24 13:45: WBC 6.1, RBC 4.20 L, Hgb 13.1 L, Hct 40.2 L, MCV 95.7 H, MCH 31.2, MCHC 32.6, RDW 14.0, Plt Count 207, MPV 8.9, Neut % (Auto) 76.0, Lymph % (Auto) 15.2, [place] % (Auto) 5.8, Eos % (Auto) 2.5, Baso % (Auto) 0.3, Neut # (Auto) 4.6, Lymph # (Auto) 0.9, [place] # (Auto) 0.4, Eos # (Auto) 0.2, Baso # (Auto) 0.0, ESR 22 H, Sodium 140, Potassium 4.3, Chloride 104, Carbon Dioxide 26, Anion Gap 14.3, BUN 13, Creatinine 1.00, Estimated Creat Clear 100, Estimated GFR 76, Est GFR ( Amer) 92, Glucose 156 H, Calcium 9.2, Total Bilirubin 0.5, AST 21, ALT 10 L, Alkaline Phosphatase 112, C-Reactive Protein 9.7 H, Total Protein 6.7, Albumin 4.0, Globulin 2.7, Albumin/Globulin Ratio 1.5 I & O for Labs for Last 24 Hours: Intake & Output 07/29/24 07/30/24 07/31/24 08/01/24 23:59 23:59 23:59 23:59 Intake Total 100 / 100 Balance 100 / 100 Weight 200 lb Constitutional: Present no acute distress Respiratory: Present normal respiratory effort Cardiac: Present Reg Rate and Rhythm Neuro: Present Grossly Intact and moves all extremities Assessment and Plan *Assessment and plan (1) Osteomyelitis of great toe of left foot: Status: Acute Category: Medical Code(s): M86.9 - Osteomyelitis, unspecified (2) Cellulitis of left foot: Status: Acute Category: Medical Code(s): L03.116 - Cellulitis of left lower limb (3) Diabetic ulcer of right foot: Status: Acute Qualifiers: Diabetic foot ulcer location: other Diabetes mellitus type: type 2 Non-pressure ulcer stage: with fat layer exposed Qualified Code(s): E11.621 - Type 2 diabetes mellitus with foot ulcer; L97.512 - Non-pressure chronic ulcer of other part of right foot with fat layer exposed Category: Medical Code(s): E11.621 - Type 2 diabetes mellitus with foot ulcer; L97.519 - Non-pressure chronic ulcer of other part of right foot with unspecified severity (4) Diabetic ulcer of left foot: Status: Acute Qualifiers: Diabetic foot ulcer location: other Diabetes mellitus type: type 2 Non-pressure ulcer stage: with fat layer exposed Qualified Code(s): E11.621 - Type 2 diabetes mellitus with foot ulcer; L97.522 - Non-pressure chronic ulcer of other part of left foot with fat layer exposed Category: Medical Code(s): E11.621 - Type 2 diabetes mellitus with foot ulcer; L97.529 - Non-pressure chronic ulcer of other part of left foot with unspecified severity (5) Diabetes mellitus with diabetic neuropathy: Status: Acute Qualifiers: Diabetes mellitus type: type 2 Diabetes mellitus intermediate designer insulin use: without intermediate designer use Qualified Code(s): E11.40 - Type 2 diabetes mellitus with diabetic neuropathy, unspecified Category: Medical Code(s): E11.40 - Type 2 diabetes mellitus with diabetic neuropathy, unspecified (6) PAD (peripheral artery disease): Status: Acute Category: Medical Code(s): I73.9 - Peripheral vascular disease, unspecified (7) Heart failure with reduced ejection fraction: Status: Acute Category: Medical Code(s): I50.20 - Unspecified systolic (congestive) heart failure (8) Coronary artery disease: Status: Acute Qualifiers: Coronary Disease-Associated Artery/Lesion type: [place] artery [place] vs. transplanted heart: [place] heart Associated angina: without angina Qualified Code(s): I25.10 - Atherosclerotic heart disease of [place] coronary artery without angina pectoris Category: Medical Code(s): I25.10 - Atherosclerotic heart disease of [place] coronary artery without angina pectoris (9) Abnormal ECG: Status: Acute Category: Medical Code(s): R94.31 - Abnormal electrocardiogram [ECG] [EKG] (10) Hypertension: Status: Chronic Qualifiers: Hypertension type: unspecified Qualified Code(s): I10 - Essential (primary) hypertension Category: Medical Code(s): I10 - Essential (primary) hypertension (11) Hyperlipidemia: Status: Chronic Qualifiers: Hyperlipidemia type: unspecified Qualified Code(s): E78.5 - Hyperlipidemia, unspecified Category: Medical Code(s): E78.5 - Hyperlipidemia, unspecified Plan Patient admitted for further evaluation and management of left great toe osteomyelitis, continue antibiotics, await cultures, resume some of his home meds, H&P to follow.
--- NOTE | 2024-08-01 18:07 | PC.NURSE ---
VSS on RA. A&Ox4. Post-operative dressings to left and right feet placed by podiatry are CDI. No complaints of pain. Pt resting comfortably supine in bed. No further complaints voiced at this time. Bed alarm in place. Call light within reach.
[2024-08-01 20:00] VITALS: BP 125/79; PULSE 65; RESP 16; TEMP 36.6; O2SAT 97
[2024-08-01] MEDS: PANTOPRAZOLE 40MG TABLET 40 MG PO (20:26)
[2024-08-01] MEDS: CARVEDILOL 3.125MG TABLET 3.125 MG PO (20:26)
[2024-08-01] MEDS: SACUBITRIL/VALSARTAN 24-26MG TABLET 1 EACH PO (20:26)
[2024-08-01] MEDS: ATORVASTATIN 40MG TABLET 80 MG PO (20:26)
[2024-08-01 20:27] LABS: Hemoglobin A1C 7.8 % (4.0-6.0)
[2024-08-01 20:38] LABS: POC Glucose,Bedside 103 (70-110)
[2024-08-02] VITALS: BP 134/86; PULSE 70; RESP 15; TEMP 36.4; O2SAT 100
--- NOTE | 2024-08-02 03:53 | PC.NURSE ---
Pt. is alert and orientated x 4. Pt. is on room air. Pt. has surgical dressings to bilateral feet/ankles. dressings clean, dry and intact. Pt. has no c/o pain. Pt. sleeping on and off this shift. Pt. has had c/o's this shift. Pt. resting in bed, using urinal to void. Personal items and call cancino in reach.
[2024-08-02 04:00] VITALS: BP 149/89; PULSE 74; RESP 16; TEMP 36.4; O2SAT 100; BMI 28.5
[2024-08-02 06:19] LABS: POC Glucose,Bedside 70 (70-110)
[2024-08-02 06:53] LABS: Basophils % 0.3 % (0.1-2.0); Eosinophils # 0.2 K/mm3 (0.0-0.4); Hematocrit 40.1 % (42.0-52.0); Hemoglobin 12.8 g/dL (14.1-18.0); Lymphocytes # 1.1 K/mm3 (0.7-4.5); Lymphocytes % 18.3 % (10-50); Mean Corpuscular HGB Conc 31.9 g/dL (31.8-35.4); Mean Corpuscular Hemoglobin 30.5 pg (27.0-31.2); Mean Corpuscular Volume 95.5 fl (80-94); Mean Platelet Volume 8.9 fl (7.4-10.4); Monocytes # 0.4 K/mm3 (0.1-1.0); Monocytes % 6.6 % (1.7-9.3); Neutrophils # 4.5 K/mm3 (1.8-7.8); Neutrophils % 71.5 % (37.0-80.0); Nucleated Red Blood Cells # 0 10^3/uL; Nucleated Red Blood Cells % 0 %; Platelet Count 207 K/mm3 (142-424); Red Cell Distribution Width 13.7 % (11.5-17.5); Red Cell Distribution Width-SD 48.1 fL; White Blood Count 6.2 K/mm3 (4.8-10.8)
[2024-08-02 06:59] LABS: Chloride 107 mmol/L (98-107); Potassium 3.7 mmoL/L (3.5-5.1); Sodium 140 mmol/L (136-145)
[2024-08-02 07:01] LABS: Blood Urea Nitrogen 11 mg/dl (9-20); Creatinine Clearance Estimated 99 mL/min (50-200); Estimated Glomerular Filt Rate 98 ml/min (>60); GFR (African American) 119 ML/MIN (>60)
[2024-08-02 07:02] LABS: Anion Gap 15.7 mEq/L (5-15); Calcium 8.8 mg/dl (8.4-10.2); Carbon Dioxide 21 mmol/L (22.0-30.0); Glucose 71 mg/dl (74-100)
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
[2024-08-02 07:13] LABS: Erythrocyte Sedimentation Rate 20 mm/hr (0-20)
[2024-08-02 08:00] VITALS: BP 126/71; PULSE 77; RESP 19; TEMP 36.6; O2SAT 100
[2024-08-02 08:00] LABS: C-Reactive Protein 7.1 mg/L (0-4)
--- NOTE | 2024-08-02 08:17 | HMH.PHAINT1 ---
Pharmacy Intervention Comments: MEDICATION RECONCILIATION COMPLETED ON PATIENT USING EXTERNAL FILL HISTORY FROM PHARMACY. -JUAN FRANCO, GEOFFREYD
--- NOTE | 2024-08-02 08:20 | EXP.HP ---
History of Present Illness *Admission Date: 08/01/24 *History of present illness: Patient is a 63-year-old male presenting to the Emergency Department for evaluation of left toe wound with bone protruding through the wound. Patient reports he had frostbite to both feet in April. He has been seeing [facility] wound care clinic. Reports the right foot has improved significantly. Reports he went to wound care today and they saw a bone exposed to the left great toe and sent him to the ER. Patient has comorbidities of diabetes, peripheral neuropathy, gout, cardiac history, PAD. He does have a history of cardiac cath and lower extremity stent. (above as per Dr. Trujillo) [facility] Disclaimer: The information contained in this section may have been updated after the patient was seen, as this information can be updated by other users. Medical History Nonhealing skin ulcer Abnormal echocardiogram E. coli UTI Fracture of fifth metatarsal bone of right foot Foot lesion Severe sepsis CHF (congestive heart failure) Abnormal ECG LV dysfunction Ischemic cardiomyopathy Coronary artery disease COVID-19 Gout Hypertension Hyperlipidemia Diabetes mellitus, type 2 Onychomycosis Onychodystrophy Acquired metatarsus varus Abrasion of foot, right Fracture of fourth metatarsal bone of right foot Vaccine counseling Immunization due Blister of foot without infection Surgical History S/P coronary artery stent placement Hx of heart artery stent History of cardiac cath History of tonsillectomy Family History Diabetes Coronary artery disease Hyperlipidemia Social History Smoking Status: Never smoker alcohol intake: never current occupational status: employed Travel in the last 8 weeks: None Have you lived/traveled outside US in past 30 days?: No Contact w/someone who lives/traveled outside US past 30 days?: No Exposure to someone with infectious disease in past 14 days?: No Do you have a fever (greater than 100.4 F or 38 C)?: No Have you tested positive for COVID-19: No Exposed to someone with COVID-19 in past 14 days?: No Do you have a sore throat?: No Do you have a cough?: No Do you have any weakness?: No Do you have any diarrhea?: No Are you experiencing any unusual bleeding?: No Do you have any muscle aches/pain?: No Do you have any abdominal pain?: No Are you experiencing loss of taste or smell?: No Other Medical History Have you received the Flu Vaccine for this season: No Have you received the Pneumonia Vaccine: No Review of Systems Constitutional Constitutional: Denies body ache(s) and Denies chills Eyes Eyes: Denies blurry vision and Denies diplopia ENT Ears, Nose, Mouth, and Throat: Denies nasal congestion, Denies sore throat and Reports vertigo *Cardiovascular Cardiovascular: Denies chest pain and Denies dyspnea *Respiratory Respiratory: Denies cough and Denies dyspnea *Gastrointestinal Gastrointestinal: Denies abdominal pain, Denies nausea and Denies vomiting *Genitourinary Genitourinary: Denies difficulty urinating and Denies dysuria *Musculoskeletal Musculoskeletal: Reports numbness and Reports other (right foot pain) *Neurologic Neurologic: Reports numbness, Reports paresthesias and Reports vertigo Meds Home Medications and Allergies Home Medications ?Medication ?Instructions ?Recorded ?Confirmed ?Type allopurinol 300 mg tablet 300 mg PO DAILY 02/28/24 08/01/24 History amlodipine 5 mg tablet 5 mg PO DAILY 02/28/24 08/01/24 History aspirin 81 mg tablet,delayed 81 mg PO DAILY 02/28/24 08/01/24 History release carvedilol 3.125 mg tablet 3.125 mg PO BID 02/28/24 08/01/24 History clopidogrel 75 mg tablet 75 mg PO DAILY 02/28/24 08/01/24 History glimepiride 4 mg tablet 2 mg PO DAILY 02/28/24 08/02/24 History metformin 500 mg tablet 500 mg PO BID 02/28/24 08/01/24 History omeprazole 40 mg capsule,delayed 40 mg PO DAILY 02/28/24 08/01/24 History release sacubitril 24 mg-valsartan 26 mg 1 tab PO BID 02/28/24 08/01/24 History tablet (Entresto) vericiguat 10 mg tablet (Verquvo) 10 mg PO DAILY 02/28/24 08/01/24 History rosuvastatin 40 mg tablet (Crestor) 40 mg PO DAILY #90 tabs 07/23/24 08/01/24 Rx New Prescriptions to Start Prescriptions: Allergies Allergy/AdvReac Type Severity Reaction Status Date / Time No Known Allergies Allergy Verified 04/03/24 13:16 Exam Data for Last 24 hours Vital signs and Labs for Last 24 Hours: Temp Pulse Resp BP Pulse Ox O2 Del Method 97.6 F 74 16 149/89 H 100 Room Air 08/02/24 04:00 08/02/24 04:00 08/02/24 04:00 08/02/24 04:00 08/02/24 04:00 08/02/24 06:45 Laboratory Results - last 24 hr 08/01/24 13:45: WBC 6.1, RBC 4.20 L, Hgb 13.1 L, Hct 40.2 L, MCV 95.7 H, MCH 31.2, MCHC 32.6, RDW 14.0, Plt Count 207, MPV 8.9, Neut % (Auto) 76.0, Lymph % (Auto) 15.2, [place] % (Auto) 5.8, Eos % (Auto) 2.5, Baso % (Auto) 0.3, Neut # (Auto) 4.6, Lymph # (Auto) 0.9, [place] # (Auto) 0.4, Eos # (Auto) 0.2, Baso # (Auto) 0.0, ESR 22 H, Sodium 140, Potassium 4.3, Chloride 104, Carbon Dioxide 26, Anion Gap 14.3, BUN 13, Creatinine 1.00, Estimated Creat Clear 100, Estimated GFR 76, Est GFR ( Amer) 92, Glucose 156 H, Hemoglobin A1c 7.8 H, Calcium 9.2, Total Bilirubin 0.5, AST 21, ALT 10 L, Alkaline Phosphatase 112, C-Reactive Protein 9.7 H, Total Protein 6.7, Albumin 4.0, Globulin 2.7, Albumin/Globulin Ratio 1.5 08/01/24 20:30: POC Glucose 103 08/02/24 05:45: POC Glucose 70 08/02/24 06:34: WBC 6.2, RBC 4.20 L, Hgb 12.8 L, Hct 40.1 L, MCV 95.5 H, MCH 30.5, MCHC 31.9, RDW 13.7, Plt Count 207, MPV 8.9, Neut % (Auto) 71.5, Lymph % (Auto) 18.3, [place] % (Auto) 6.6, Eos % (Auto) 3.0, Baso % (Auto) 0.3, Neut # (Auto) 4.5, Lymph # (Auto) 1.1, [place] # (Auto) 0.4, Eos # (Auto) 0.2, Baso # (Auto) 0.0, ESR 20, Sodium 140, Potassium 3.7, Chloride 107, Carbon Dioxide 21 L, Anion Gap 15.7 H, BUN 11, Creatinine 0.80, Estimated Creat Clear 99, Estimated GFR 98, Est GFR ( Amer) 119 D, Glucose 71 L D, Calcium 8.8, C-Reactive Protein 7.1 H D I & O for Last 24 hours: Intake & Output 07/30/24 07/31/24 08/01/24 08/02/24 11:59 11:59 11:59 11:59 Intake Total 450 / 450 Output Total 2200 / 2200 Balance -1750 / -1750 Weight 199 lb 9.6 oz Microbiology Reports for the Last 24 Hours: Microbiology 08/01/24 14:17 Foot,Left Gram Stain - Final 08/01/24 15:40 Foot,Left - Wound Gram Stain - Final Constitutional Constitutional: no acute distress *Routine HEENT Exam Head: Present normocephalic and atraumatic Eye: Present EOMI and PERRL ENT: Present mucous membranes moist *Routine Neck Exam Neck: Present supple and full ROM *Routine Respiratory Exam Respiratory: Present CTA bilaterally *Routine Cardiovascular Exam Cardiovascular: Present RRR *Routine Abdominal Exam Abdominal: Present soft and normoactive bowel sounds; Absent tenderness *Routine Rectal Exam Rectal:: deferred *Routine Genitalia Exam Genitalia:: deferred *Routine Extremities Exam Extremities: Absent cyanosis, clubbing or edema *Routine Skin Exam Skin: Present intact; Absent erythema Comments: Dressing in place on right foot *Routine Neurological Exam Neurological: Present alert and oriented X3 H&P: Result Impressions Foot x-ray No bone destruction with significant soft tissue loss of the 1st digit. Foot x-ray Postsurgical changes compatible with great toe amputation with appropriate soft tissue swelling. Assessment and Plan *Assessment and plan (1) Osteomyelitis of great toe of left foot: Status: Acute Category: Medical Code(s): M86.9 - Osteomyelitis, unspecified (2) Cellulitis of left foot: Status: Acute Category: Medical Code(s): L03.116 - Cellulitis of left lower limb (3) Diabetic ulcer of right foot: Status: Acute Qualifiers: Diabetes mellitus type: type 2 Diabetic foot ulcer location: other Non-pressure ulcer stage: with fat layer exposed Qualified Code(s): E11.621 - Type 2 diabetes mellitus with foot ulcer; L97.512 - Non-pressure chronic ulcer of other part of right foot with fat layer exposed Category: Medical Code(s): E11.621 - Type 2 diabetes mellitus with foot ulcer; L97.519 - Non-pressure chronic ulcer of other part of right foot with unspecified severity (4) Diabetic ulcer of left foot: Status: Acute Qualifiers: Diabetes mellitus type: type 2 Diabetic foot ulcer location: other Non-pressure ulcer stage: with fat layer exposed Qualified Code(s): E11.621 - Type 2 diabetes mellitus with foot ulcer; L97.522 - Non-pressure chronic ulcer of other part of left foot with fat layer exposed Category: Medical Code(s): E11.621 - Type 2 diabetes mellitus with foot ulcer; L97.529 - Non-pressure chronic ulcer of other part of left foot with unspecified severity (5) Diabetes mellitus with diabetic neuropathy: Status: Acute Qualifiers: Diabetes mellitus rn long term care insulin use: without fci use Diabetes mellitus type: type 2 Qualified Code(s): E11.40 - Type 2 diabetes mellitus with diabetic neuropathy, unspecified Category: Medical Code(s): E11.40 - Type 2 diabetes mellitus with diabetic neuropathy, unspecified (6) PAD (peripheral artery disease): Status: Acute Category: Medical Code(s): I73.9 - Peripheral vascular disease, unspecified (7) Hyperlipidemia: Status: Chronic Qualifiers: Hyperlipidemia type: unspecified Qualified Code(s): E78.5 - Hyperlipidemia, unspecified Category: Medical Code(s): E78.5 - Hyperlipidemia, unspecified (8) Hypertension: Status: Chronic Qualifiers: Hypertension type: unspecified Qualified Code(s): I10 - Essential (primary) hypertension Category: Medical Code(s): I10 - Essential (primary) hypertension (9) Coronary artery disease: Status: Acute Qualifiers: Coronary Disease-Associated Artery/Lesion type: [place] artery [place] vs. transplanted heart: [place] heart Associated angina: without angina Qualified Code(s): I25.10 - Atherosclerotic heart disease of [place] coronary artery without angina pectoris Category: Medical Code(s): I25.10 - Atherosclerotic heart disease of [place] coronary artery without angina pectoris (10) Diabetes mellitus, type 2: Status: Acute Category: Medical Code(s): E11.9 - Type 2 diabetes mellitus without complications (11) Coronary artery disease: Status: Acute Qualifiers: Coronary Disease-Associated Artery/Lesion type: [place] artery [place] vs. transplanted heart: [place] heart Associated angina: without angina Qualified Code(s): I25.10 - Atherosclerotic heart disease of [place] coronary artery without angina pectoris Category: Medical Code(s): I25.10 - Atherosclerotic heart disease of [place] coronary artery without angina pectoris Plan Patient had amputation of the toe yesterday by Dr. Trujillo. Will continue broad spectrum IV antibiotics: Vanco, Zosyn. Partial weight bearing to the left heel in short fracture boot vs post op shoe with walker. FWB to right foot. Dr. Grissom entry - Saw patient, agree with above note. Await cultures, will likely need placement at time of discharge.
--- NOTE | 2024-08-02 08:58 | SW/DCPLANNER ---
Addendum entered by [facility] 08/06/24 08:37: Patient will discharge to [facility] level of care. Per MD patient will require IV antibiotics at time of discharge and I have updated [facility]. Addendum entered by [facility] 08/02/24 13:58: Alexandra Bartholomew is unable to accept. Diana pizarro/ [facility] stated that she is able to accept this patient on Sunday 08/06. Addendum entered by [facility] 08/02/24 11:35: [facility] to onsite visit patient today. Per [facility]/ [facility] no beds available at this time. Addendum entered by [facility] 08/02/24 10:36: Zaida Morris now has a bed open. Patient information will be faxed this AM. Original Note: I spoke w/ this patient regarding plans once medically stable for discharge. Due to poor living conditions and the need for assistance w/ wound care patient would benefit from LTC. Patient is agreeable to LTC w/o facility preference. Patient stated that he does have a brother that resides in [place] and would be agreeable to [facility]. I will reach out to [facility]. [facility]/ [facility] has offered patient a bed in the past and patient is now agreeable to this facility as well. Information will be faxed to [facility] and [facility] this AM. Per [facility] no beds available at this time. I will continue to follow up. Discharge date is unknown.
[2024-08-02] MEDS: SACUBITRIL/VALSARTAN 24-26MG TABLET 1 EACH PO ×2 (09:02→20:28)
[2024-08-02] MEDS: CLOPIDOGREL 75MG TAB 75 MG PO (09:02)
[2024-08-02] MEDS: CARVEDILOL 3.125MG TABLET 3.125 MG PO ×2 (09:02→20:28)
[2024-08-02] MEDS: ALLOPURINOL 300MG TABLET 300 MG PO (09:02)
[2024-08-02] MEDS: ENOXAPARIN 40MG/0.4ML SYRINGE 40 MG SUBCUT (09:06)
--- NOTE | 2024-08-02 09:07 | P.CONPHA_ITS ---
Pharmacy Consult Date: 08/02/24 Time: 09:07 Referring provider: DR. ANN Reason for Consult:: VANCOMYCIN DOSING Allergies Allergy/AdvReac Type Severity Reaction Status Date / Time No Known Allergies Allergy Verified 04/03/24 13:16 Home Medications ?Medication ?Instructions ?Recorded ?Confirmed ?Type allopurinol 300 mg tablet 300 mg PO DAILY 02/28/24 08/01/24 History amlodipine 5 mg tablet 5 mg PO DAILY 02/28/24 08/01/24 History aspirin 81 mg tablet,delayed 81 mg PO DAILY 02/28/24 08/01/24 History release carvedilol 3.125 mg tablet 3.125 mg PO BID 02/28/24 08/01/24 History clopidogrel 75 mg tablet 75 mg PO DAILY 02/28/24 08/01/24 History glimepiride 4 mg tablet 2 mg PO DAILY 02/28/24 08/02/24 History metformin 500 mg tablet 500 mg PO BID 02/28/24 08/01/24 History omeprazole 40 mg capsule,delayed 40 mg PO DAILY 02/28/24 08/01/24 History release sacubitril 24 mg-valsartan 26 mg 1 tab PO BID 02/28/24 08/01/24 History tablet (Entresto) vericiguat 10 mg tablet (Verquvo) 10 mg PO DAILY 02/28/24 08/01/24 History rosuvastatin 40 mg tablet (Crestor) 40 mg PO DAILY #90 tabs 07/23/24 08/01/24 Rx New Prescriptions to Start Prescriptions: Height: 1.78 m Weight: 90.537 kg Laboratory Results:: Laboratory Results - last 24 hr 08/01/24 13:45: WBC 6.1, RBC 4.20 L, Hgb 13.1 L, Hct 40.2 L, MCV 95.7 H, MCH 31.2, MCHC 32.6, RDW 14.0, Plt Count 207, MPV 8.9, Neut % (Auto) 76.0, Lymph % (Auto) 15.2, [place] % (Auto) 5.8, Eos % (Auto) 2.5, Baso % (Auto) 0.3, Neut # (Auto) 4.6, Lymph # (Auto) 0.9, [place] # (Auto) 0.4, Eos # (Auto) 0.2, Baso # (Auto) 0.0, ESR 22 H, Sodium 140, Potassium 4.3, Chloride 104, Carbon Dioxide 26, Anion Gap 14.3, BUN 13, Creatinine 1.00, Estimated Creat Clear 100, Estimated GFR 76, Est GFR ( Amer) 92, Glucose 156 H, Hemoglobin A1c 7.8 H , Calcium 9.2, Total Bilirubin 0.5, AST 21, ALT 10 L, Alkaline Phosphatase 112, C-Reactive Protein 9.7 H, Total Protein 6.7, Albumin 4.0, Globulin 2.7, Albumin/Globulin Ratio 1.5 08/01/24 20:30: POC Glucose 103 08/02/24 05:45: POC Glucose 70 08/02/24 06:34: WBC 6.2, RBC 4.20 L, Hgb 12.8 L, Hct 40.1 L, MCV 95.5 H, MCH 30.5, MCHC 31.9, RDW 13.7, Plt Count 207, MPV 8.9, Neut % (Auto) 71.5, Lymph % (Auto) 18.3, [place] % (Auto) 6.6, Eos % (Auto) 3.0, Baso % (Auto) 0.3, Neut # (Auto) 4.5, Lymph # (Auto) 1.1, [place] # (Auto) 0.4, Eos # (Auto) 0.2, Baso # (Auto) 0.0, ESR 20, Sodium 140, Potassium 3.7, Chloride 107, Carbon Dioxide 21 L , Anion Gap 15.7 H, BUN 11, Creatinine 0.80, Estimated Creat Clear 99, Estimated GFR 98, Est GFR ( Amer) 119 D, Glucose 71 L D, Calcium 8.8, C-Reactive Protein 7.1 H D Medical History: Medical History (Updated 08/01/24 @ 14:59 by Odette Trujillo DPM) Nonhealing skin ulcer Abnormal echocardiogram E. coli UTI Fracture of fifth metatarsal bone of right foot Foot lesion Severe sepsis CHF (congestive heart failure) Abnormal ECG LV dysfunction Ischemic cardiomyopathy Coronary artery disease COVID-19 Gout Hypertension Hyperlipidemia Diabetes mellitus, type 2 Onychomycosis Onychodystrophy Acquired metatarsus varus Abrasion of foot, right Fracture of fourth metatarsal bone of right foot Vaccine counseling Immunization due Blister of foot without infection Assessment and Plan Assessment and plan all Dx Assessment and Plan for all problems:: Pharmacokinetic dosing service Objective: Patient: Floor: Age: 63 yo Serum creatinine: 0.80 mg/dL Height: 70.1 Inches Weight (kg): 90.5 Assessment: IBW (kg): 73.23 Dosing wt(kg): 90.5 Estimated Creatinine clearance (ml/min): 100.4 CRCL method: Cockcroft and Gault using ibw(default). Drug selected: Vancomycin Loading dose (mg): Vd (liters): 72.4 (factor used: 0.8 L/kg) Stepan (hr-1): 0.088 Half life (hrs): 7.88 CLvanco=?? 6.371 L/hr Recommended dose: 1750 mg Interval: 12 hrs Infusion time (hrs): 2.0 Predicted peak (mcg/mL): 34.0 Predicted trough (mcg/mL): 14.10 Total body weight is being used for vancomycin dosing. Recommendations: Give Vancomycin 1750 mg q 12 hrs with an expected Cpeak of 34.0 mcg/ml and an expected Ctrough of 14.10 mcg/ml AUC 0-24 /SIMON Data: SIMON 0.5 mcg/mL:?? AUC/SIMON:? 1098.7 SIMON 1.0 mcg/mL:?? AUC/SIMON:? 549.4 --------- SIMON 1.5 mcg/mL:?? AUC/SIMON:? 366.2 SIMNO 2.0 mcg/mL:?? AUC/SIMON:? 274.7 Thank you for the consult, will continue to follow. -JUAN FRANCO, GEOFFREYD
[2024-08-02] MEDS: PIPERACILLIN/TAZO 3.375 GM in 0.9 % SODIUM CHLORIDE 50 ML IV ×3 (09:41→20:32)
--- NOTE | 2024-08-02 09:46 | HMH.PTEV ---
Physical Therapy Evaluation Rehab PT IP Evaluation Start: 08/01/24 16:16 Freq: ONCE Status: Active Protocol: Document 08/02/24 08:40 PRIYAJIN (Rec: 08/02/24 09:46 PHORJIN [id number]) Subjective/History History History Patient is a 63-year-old male who presents post-op day 1 following an amputation of the L hallux and wound debridement of the R hallux. He presented yesterday to the ER with left toe wound with bone protruding through the wound. Patient reported he had frostbite to both feet in April. He has been seeing [facility] wound care clinic. Patient has comorbidities of diabetes , peripheral neuropathy, gout, cardiac history, PAD. He does have a history of cardiac cath and lower extremity stent . Pt reports he lives alone. Subjective Subjective Pt is post-op day 1, alert and presents resting supine in bed. He c/o 3/10 pain in his L foot at this time. He is willing to participate in therapy and move to the bedside chair this AM. He reports that he has a walker at home. Pt currently has orders for post-op shoe for use with transfers and ambulation. At end of session, pt was positioned in bedside chair with nsg button in reach . [facility] How much help from another person do you currently need... Turning from your back to your side None while in a flat bed without using bedrails? Moving from lying on back to sitting on None the side of a flat bed without using bedrails? Moving to and from a bed to a chair ( None including a wheelchair)? Standing up from a chair using your arms None ? (e.g., wheelchair, bedside chair) Walking in hospital room? None Climbing 3-5 steps with a railing? None Mobility Score 24 Mobility Level [facility] Mobility Calculator Mobility 8 Walk 250 feet or more Rehab PT IP Eval Objective Appearance Patient Behavior Appropriate,Cooperative Patient Orientation Person Difficulty following instructions none Speech Pattern Clear,Appropriate Ambulation Patient Able to Ambulate Yes Ambulation Observation IP General Gait Pattern Observation Wide Based Gait,Decrease Weight Bear (L) Ambulation Distance (feet) 3 Ambulation Assistive Device Rolling Walker Ambulation Ability Supervision/Stand by Balance Ability to Arise Able, w/o using arms Sitting Balance Steady, safe Standing Balance Steady, wide stance Dynamic Sitting Balance Ability Normal Dynamic Standing Balance Ability Normal Transfers Bed Transfer Ability Independent Chair Transfer Ability Supervision/Stand by Sit to Stand Bed Transfer Ability Supervision/Stand by Sit to Stand Chair Transfer Ability Supervision/Stand by Pain Left Toe Pain Intensity 3 Rehab PT IP prob,goals,plan Problems Date of Evaluation: 08/02/24 PT IP Problems Transfers,Gait Rehab Potential Rehab Potential Good Equipment Needs Assistive Devices Rolling / Wheeled Walker Plan PT Intervention Plan Transfers,Gait,Balance, Therapeutic Exercise PT Plan Frequency Daily Duration LOS Discharge Goals Bed Transfer Ability Independent Sit to Stand Chair Transfer Ability Independent Ambulation Assistive Device Rolling Walker Ambulation Distance (feet) 50 Discharge Plan PT Discharge Plan Pt is currently most appropriate to discharge to a SNF once medically stable for d/c to maintain care of wound, but he may be able to return home if suitable home health or outpatient wound care is available. He is able to ambulate independently with a RW while maintaining PWB on L heel. Skilled therapy is currently indicated to improve LE strength and mobility to return to [facility] for all ADLs, transfers, and ambulation at home and in the community. Eval Complexity Eval Charge Codes 43286 - High Complexity PHYSICIAN CERTIFICATION: I certify the specified therapy services for Sunday Talbot are required, authorized, and reviewed every 30 days.
[2024-08-02] MEDS: VANCOMYCIN/WATER FOR INJ (PEG) 1.75 GM/350 ML PIGGYBACK IV ×2 (10:22→21:10)
[2024-08-02 10:36] LABS: POC Glucose,Bedside 226 (70-110)
[2024-08-02] MEDS: humaLOG 100 UNITS/ML 10ML VIAL (SSI) SUBCUT ×2 (11:20→20:31)
--- NOTE | 2024-08-02 11:26 | PC.NURSE ---
Received call back from Dr. Trujillo. No new orders at this time.
[2024-08-02 13:00] VITALS: BMI 28.5
[2024-08-02 16:00] VITALS: BP 132/79; PULSE 74; RESP 17; TEMP 36.6; O2SAT 99
[2024-08-02 16:14] LABS: POC Glucose,Bedside 151 (70-110)
[2024-08-02] MEDS: ACETAMINOPHEN 325MG TAB 650 MG PO (16:24)
--- NOTE | 2024-08-02 18:13 | PC.NURSE ---
left lower extremity dressing has a moderate amount a sanguinous fluid, patient refused a dressing chnage this shift and requested to have it changed tomorrow. has c/o of pain once this shift and treated per MAR. patient has been up to the chair most of the shift. call light within reach. plan of care on going, no concerns voiced at this time.
[2024-08-02 19:43] VITALS: BP 122/67; PULSE 76; RESP 18; TEMP 37.1; O2SAT 99
[2024-08-02] MEDS: PANTOPRAZOLE 40MG TABLET 40 MG PO (20:28)
[2024-08-02] MEDS: ATORVASTATIN 40MG TABLET 80 MG PO (20:28)
--- NOTE | 2024-08-02 22:54 | PC.NURSE ---
Pt surgical dressing was found to be blood soaked. dressing was reinforced with betadine soaked gauze and dry [place] bandage. pt was educated to keep foot elevated. Dr. Trujillo was paged to make aware, messaged left for call back.
--- NOTE | 2024-08-02 23:26 | PC.NURSE ---
Received call back from Dr. Trujillo. No new orders at this time.
[2024-08-03] MEDS: PIPERACILLIN/TAZO 3.375 GM in 0.9 % SODIUM CHLORIDE 50 ML IV ×4 (03:27→21:35)
[2024-08-03 04:00] VITALS: BP 152/88; PULSE 89; RESP 16; TEMP 37; O2SAT 100; BMI 26.9
--- NOTE | 2024-08-03 04:14 | PC.NURSE ---
Pt has rested well this shift and left foot dressing remains dry, clean and intact. Pt has tolerated antibiotics well this shift. Pt denies pain and has had no other acute changes to note this shift.
[2024-08-03 05:22] LABS: POC Glucose,Bedside 107 (70-110)
[2024-08-03 06:49] LABS: Chloride 105 mmol/L (98-107); Potassium 3.7 mmoL/L (3.5-5.1); Sodium 140 mmol/L (136-145)
[2024-08-03 06:52] LABS: Anion Gap 14.7 mEq/L (5-15); Blood Urea Nitrogen 14 mg/dl (9-20); Carbon Dioxide 24 mmol/L (22.0-30.0); Creatinine Clearance Estimated 94 mL/min (50-200); Estimated Glomerular Filt Rate 76 ml/min (>60); GFR (African American) 92 ML/MIN (>60); Glucose 100 mg/dl (74-100)
[2024-08-03 08:00] VITALS: BP 132/79; PULSE 77; RESP 18; TEMP 37.1; O2SAT 99
[2024-08-03] MEDS: CARVEDILOL 3.125MG TABLET 3.125 MG PO ×2 (08:09→20:29)
[2024-08-03] MEDS: CLOPIDOGREL 75MG TAB 75 MG PO (08:09)
[2024-08-03] MEDS: ALLOPURINOL 300MG TABLET 300 MG PO (08:09)
[2024-08-03] MEDS: SACUBITRIL/VALSARTAN 24-26MG TABLET 1 EACH PO ×2 (08:09→20:29)
--- NOTE | 2024-08-03 08:24 | EXP.ACUTE.PN ---
Subjective *Date: 08/03/24 *Time: 08:58 Interval history: Patient is feeling a little better today. Still having pain in the left toe. Medical Exam Vital signs and Labs for Last 24 Hours: Vital Signs Temp Pulse Resp BP Pulse Ox O2 Del Method 08/03/24 06:48 Room Air 08/03/24 05:00 Room Air 08/03/24 04:00 98.6 F 89 16 152/88 H 100 Room Air 08/03/24 03:00 Room Air 08/03/24 01:00 Room Air 08/02/24 23:00 Room Air 08/02/24 21:00 Room Air 08/02/24 20:00 Room Air 08/02/24 19:43 98.7 F 76 18 122/67 99 Room Air 08/02/24 18:50 Room Air 08/02/24 17:00 Room Air 08/02/24 16:00 97.8 F 74 17 132/79 99 Room Air 08/02/24 15:00 Room Air 08/02/24 13:00 Room Air 08/02/24 10:38 Room Air 08/02/24 09:00 Room Air Intake and Output 08/02/24 08/03/24 08/03/24 19:59 03:59 11:59 Intake Total 840 / 1480 640 / 1480 Output Total 1550 / 2900 1350 / 2900 Balance -710 / -1420 -710 / -1420 Intake: Intake, Oral Amount 840 / 1080 240 / 1080 Intake, Total IV Amount 400 / 400 Piperacillin/Tazo 3.375 gm In 0 50 / 50 .9 % Sodium Chloride 50 ml @ 100 mls/hr IV ONCE ONE Rx#: [id number] Vancomycin/Water For Inj (Peg) 350 / 350 1.75 gm In 350 ml @ 175 mls/hr IV Q12H [facility] Rx#:[id number] Output: Output, Urine Amount 1550 / 2900 1350 / 2900 Other: Number of Voids 0 Number of Unmeasured Voids 0 0 Number of Bowel Movements 1 Weight 199 lb 9.352 oz 188 lb 3.2 oz Patient Weight 08/03/24 11:59 Weight 188 lb 3.2 oz Laboratory Results - last 24 hr 08/02/24 10:28: POC Glucose 226 H 08/02/24 16:02: POC Glucose 151 H 08/03/24 05:15: POC Glucose 107 08/03/24 06:21: Sodium 140, Potassium 3.7, Chloride 105, Carbon Dioxide 24, Anion Gap 14.7, BUN 14 D, Creatinine 1.00 D, Estimated Creat Clear 94, Estimated GFR 76, Est GFR ( Amer) 92 D, Glucose 100 D, Calcium 9.0 I & O for Labs for Last 24 Hours: Intake & Output 07/31/24 08/01/24 08/02/24 08/03/24 11:59 11:59 11:59 11:59 Intake Total 990 / 990 1480 / 1480 Output Total 2700 / 2700 2900 / 2900 Balance -1710 / -1710 -1420 / -1420 Weight 199 lb 9.6 oz 188 lb 3.2 oz Microbiology Reports for the Last 24 Hours: Microbiology 08/01/24 15:14 Blood Blood Culture - Preliminary NO GROWTH AFTER 24 HOURS 08/01/24 13:45 Blood Blood Culture - Preliminary NO GROWTH AFTER 24 HOURS 08/01/24 14:17 Foot,Left Gram Stain - Final 08/01/24 14:17 Foot,Left Wound Culture - Preliminary Gram Negative Rods 08/01/24 15:40 Foot,Left - Wound Gram Stain - Final 08/01/24 15:40 Foot,Left - Wound Wound Culture - Preliminary Gram Negative Rods Constitutional: Present no acute distress Respiratory: Present normal respiratory effort Cardiac: Present Reg Rate and Rhythm Neuro: Present Grossly Intact and moves all extremities Assessment and Plan *Assessment and plan (1) Osteomyelitis of great toe of left foot: Status: Acute Category: Medical Code(s): M86.9 - Osteomyelitis, unspecified (2) Cellulitis of left foot: Status: Acute Category: Medical Code(s): L03.116 - Cellulitis of left lower limb (3) Diabetic ulcer of right foot: Status: Acute Qualifiers: Diabetes mellitus type: type 2 Diabetic foot ulcer location: other Non-pressure ulcer stage: with fat layer exposed Qualified Code(s): E11.621 - Type 2 diabetes mellitus with foot ulcer; L97.512 - Non-pressure chronic ulcer of other part of right foot with fat layer exposed Category: Medical Code(s): E11.621 - Type 2 diabetes mellitus with foot ulcer; L97.519 - Non-pressure chronic ulcer of other part of right foot with unspecified severity (4) Diabetic ulcer of left foot: Status: Acute Qualifiers: Diabetes mellitus type: type 2 Diabetic foot ulcer location: other Non-pressure ulcer stage: with fat layer exposed Qualified Code(s): E11.621 - Type 2 diabetes mellitus with foot ulcer; L97.522 - Non-pressure chronic ulcer of other part of left foot with fat layer exposed Category: Medical Code(s): E11.621 - Type 2 diabetes mellitus with foot ulcer; L97.529 - Non-pressure chronic ulcer of other part of left foot with unspecified severity (5) Diabetes mellitus with diabetic neuropathy: Status: Acute Qualifiers: Diabetes mellitus prison insulin use: without prison use Diabetes mellitus type: type 2 Qualified Code(s): E11.40 - Type 2 diabetes mellitus with diabetic neuropathy, unspecified Category: Medical Code(s): E11.40 - Type 2 diabetes mellitus with diabetic neuropathy, unspecified (6) PAD (peripheral artery disease): Status: Acute Category: Medical Code(s): I73.9 - Peripheral vascular disease, unspecified (7) Hyperlipidemia: Status: Chronic Qualifiers: Hyperlipidemia type: unspecified Qualified Code(s): E78.5 - Hyperlipidemia, unspecified Category: Medical Code(s): E78.5 - Hyperlipidemia, unspecified (8) Hypertension: Status: Chronic Qualifiers: Hypertension type: unspecified Qualified Code(s): I10 - Essential (primary) hypertension Category: Medical Code(s): I10 - Essential (primary) hypertension (9) Coronary artery disease: Status: Acute Qualifiers: Associated angina: without angina Coronary Disease-Associated Artery/Lesion type: [place] artery [place] vs. transplanted heart: [place] heart Qualified Code(s): I25.10 - Atherosclerotic heart disease of [place] coronary artery without angina pectoris Category: Medical Code(s): I25.10 - Atherosclerotic heart disease of [place] coronary artery without angina pectoris (10) Diabetes mellitus, type 2: Status: Acute Category: Medical Code(s): E11.9 - Type 2 diabetes mellitus without complications (11) Coronary artery disease: Status: Acute Qualifiers: Associated angina: without angina Coronary Disease-Associated Artery/Lesion type: [place] artery [place] vs. transplanted heart: [place] heart Qualified Code(s): I25.10 - Atherosclerotic heart disease of [place] coronary artery without angina pectoris Category: Medical Code(s): I25.10 - Atherosclerotic heart disease of [place] coronary artery without angina pectoris Plan Will continue broad spectrum IV antibiotics: Aj Freeman. Partial weight bearing to the left heel in short fracture boot vs post op shoe with walker. FWB to right foot. Dr. Grissom entry - Saw patient, agree with above note.
[2024-08-03 09:06] LABS: Basophils % 0.1 % (0.1-2.0); Eosinophils # 0.2 K/mm3 (0.0-0.4); Eosinophils % 2.5 % (0.1-12.0); Hematocrit 35.3 % (42.0-52.0); Hemoglobin 11.6 g/dL (14.1-18.0); Lymphocytes # 0.8 K/mm3 (0.7-4.5); Lymphocytes % 11.9 % (10-50); Mean Corpuscular HGB Conc 32.9 g/dL (31.8-35.4); Mean Corpuscular Hemoglobin 30.9 pg (27.0-31.2); Mean Corpuscular Volume 94.1 fl (80-94); Mean Platelet Volume 9.4 fl (7.4-10.4); Monocytes # 0.5 K/mm3 (0.1-1.0); Monocytes % 7.6 % (1.7-9.3); Neutrophils # 5.2 K/mm3 (1.8-7.8); Neutrophils % 77.6 % (37.0-80.0); Nucleated Red Blood Cells # 0 10^3/uL; Nucleated Red Blood Cells % 0 %; Platelet Count 203 K/mm3 (142-424); Red Blood Count 3.75 M/mm3 (4.60-6.20); Red Cell Distribution Width 13.7 % (11.5-17.5); Red Cell Distribution Width-SD 47.3 fL; White Blood Count 6.8 K/mm3 (4.8-10.8)
[2024-08-03 10:41] LABS: POC Glucose,Bedside 258 (70-110)
[2024-08-03] MEDS: humaLOG 100 UNITS/ML 10ML VIAL (SSI) SUBCUT ×3 (11:13→20:29)
[2024-08-03] MEDS: VANCOMYCIN/WATER FOR INJ (PEG) 1.75 GM/350 ML PIGGYBACK IV ×2 (11:16→22:21)
[2024-08-03 14:00] VITALS: BP 129/66; PULSE 78; RESP 18; TEMP 37.4; O2SAT 99
[2024-08-03 16:32] LABS: POC Glucose,Bedside 158 (70-110)
--- NOTE | 2024-08-03 17:51 | PC.NURSE ---
patient is a/ox4 remains on room air tolerating well. post op shoes at bedside. dressing as remained C/D/I this shift and patient has kept BLE elevated. glucose levels treated per JUN. voids per urinal and ambulates to the BSC x1 assist. continuing IV abx. no c/o pain this shift. call light within reach, no further requests at this time.
[2024-08-03 19:36] VITALS: BP 127/77; PULSE 85; RESP 18; TEMP 36.9; O2SAT 98
[2024-08-03] MEDS: PANTOPRAZOLE 40MG TABLET 40 MG PO (20:29)
[2024-08-03] MEDS: ATORVASTATIN 40MG TABLET 80 MG PO (20:29)
[2024-08-03 20:42] LABS: POC Glucose,Bedside 335 (70-110)
[2024-08-03 22:10] LABS: Vancomycin,Trough 22.7 ug/mL (5.0-10.0)
[2024-08-04 02:46] LABS: Vancomycin,Peak 36.7 ug/ml (11-39)
[2024-08-04 04:00] VITALS: BP 106/58; PULSE 68; RESP 17; TEMP 37; O2SAT 96; BMI 27.3
[2024-08-04] MEDS: PIPERACILLIN/TAZO 3.375 GM in 0.9 % SODIUM CHLORIDE 50 ML IV ×4 (04:09→20:16)
[2024-08-04] MEDS: humaLOG 100 UNITS/ML 10ML VIAL (SSI) SUBCUT ×3 (06:01→20:15)
[2024-08-04 06:10] LABS: POC Glucose,Bedside 224 (70-110)
--- NOTE | 2024-08-04 06:27 | PC.NURSE ---
Pt A&OX4 and has tolerated room air. Lung sounds clear and bowel sounds active. Dressing changed. He has received IV antibiotics throughout the shift. He has got up with x1 assist. No complaints at this time, call light within reach.
[2024-08-04 08:00] VITALS: BP 139/79; PULSE 83; RESP 16; TEMP 36.3; O2SAT 100
[2024-08-04] MEDS: ALLOPURINOL 300MG TABLET 300 MG PO (08:42)
[2024-08-04] MEDS: CLOPIDOGREL 75MG TAB 75 MG PO (08:42)
[2024-08-04] MEDS: ENOXAPARIN 40MG/0.4ML SYRINGE 40 MG SUBCUT (08:42)
[2024-08-04] MEDS: CARVEDILOL 3.125MG TABLET 3.125 MG PO ×2 (08:42→20:15)
[2024-08-04] MEDS: SACUBITRIL/VALSARTAN 24-26MG TABLET 1 EACH PO ×2 (08:42→20:16)
--- NOTE | 2024-08-04 08:49 | P.PN_ITS ---
Subjective *Date: 08/04/24 *Time: 08:49 Interval history: Patient with no new complaints today. Medical Exam Vital signs and Labs for Last 24 Hours: Vital Signs Temp Pulse Resp BP Pulse Ox O2 Del Method 08/04/24 08:00 97.4 F L 83 16 139/79 100 Room Air 08/04/24 06:53 Room Air 08/04/24 05:00 Room Air 08/04/24 04:00 98.6 F 68 17 106/58 L 96 Room Air 08/04/24 03:00 Room Air 08/04/24 01:00 Room Air 08/03/24 22:57 Room Air 08/03/24 21:00 Room Air 08/03/24 20:00 Room Air 08/03/24 19:36 98.5 F 85 18 127/77 98 Room Air 08/03/24 18:55 Room Air 08/03/24 17:00 Room Air 08/03/24 15:00 Room Air 08/03/24 14:00 99.3 F 78 18 129/66 99 Room Air 08/03/24 13:00 Room Air 08/03/24 11:00 Room Air 08/03/24 09:00 Room Air Intake and Output 08/03/24 08/04/24 08/04/24 23:59 07:59 15:59 Intake Total 480 / 2110 400 / 1410 1010 / 1410 Output Total 1420 / 3420 950 / 950 Balance -940 / -1310 400 / 460 60 / 460 Intake: Intake, Oral Amount 480 / 1260 960 / 960 Intake, Total IV Amount 400 / 450 50 / 450 Piperacillin/Tazo 3.375 gm In 0 50 / 100 50 / 100 .9 % Sodium Chloride 50 ml @ 100 mls/hr IV Q6H [facility] Rx#: [id number] Vancomycin/Water For Inj (Peg) 350 / 350 1.75 gm In 350 ml @ 175 mls/hr IV Q12H [facility] Rx#:[id number] Output: Output, Urine Amount 1420 / 3420 950 / 950 Other: Weight 190 lb 12.8 oz Patient Weight 08/04/24 23:59 Weight 190 lb 12.8 oz Laboratory Results - last 24 hr 08/03/24 06:21: WBC 6.8, RBC 3.75 L, Hgb 11.6 L, Hct 35.3 L, MCV 94.1 H, MCH 30.9, MCHC 32.9, RDW 13.7, Plt Count 203, MPV 9.4, Neut % (Auto) 77.6, Lymph % (Auto) 11.9, [place] % (Auto) 7.6, Eos % (Auto) 2.5, Baso % (Auto) 0.1, Neut # (Auto) 5.2, Lymph # (Auto) 0.8, [place] # (Auto) 0.5, Eos # (Auto) 0.2, Baso # (Auto) 0.0 08/03/24 10:31: POC Glucose 258 H 08/03/24 16:24: POC Glucose 158 H 08/03/24 20:28: POC Glucose 335 H* 08/03/24 20:50: Vancomycin Trough 22.7 H 08/04/24 02:05: Vancomycin Peak 36.7 08/04/24 06:00: POC Glucose 224 H I & O for Labs for Last 24 Hours: Intake & Output 08/01/24 08/02/24 08/03/24 08/04/24 23:59 23:59 23:59 23:59 Intake Total 100 / 450 1730 / 2370 1710 / 2110 1410 / 1410 Output Total 800 / 1150 3650 / 3650 3420 / 3420 950 / 950 Balance -700 / -700 -1920 / -1280 -1710 / -1310 460 / 460 Weight 200 lb 199 lb 9.352 oz 188 lb 3.2 oz 190 lb 12.8 oz Microbiology Reports for the Last 24 Hours: Microbiology 08/01/24 15:40 Foot,Left - Wound Gram Stain - Final 08/01/24 15:40 Foot,Left - Wound Wound Culture - Preliminary Proteus vulgaris Gram Positive Cocci 08/01/24 14:17 Foot,Left Gram Stain - Final 08/01/24 14:17 Foot,Left Wound Culture - Preliminary Proteus mirabilis Gram Positive Cocci 08/01/24 15:14 Blood Blood Culture - Preliminary NO GROWTH AFTER 48 HOURS 08/01/24 13:45 Blood Blood Culture - Preliminary NO GROWTH AFTER 48 HOURS 08/01/24 15:42 Foot,Left - Other Bone Culture - Preliminary Constitutional: Present no acute distress Respiratory: Present normal respiratory effort Cardiac: Present Reg Rate and Rhythm Neuro: Present Grossly Intact and moves all extremities Assessment and Plan *Assessment and plan (1) Osteomyelitis of great toe of left foot: Status: Acute Category: Medical Code(s): M86.9 - Osteomyelitis, unspecified (2) Cellulitis of left foot: Status: Acute Category: Medical Code(s): L03.116 - Cellulitis of left lower limb (3) Diabetic ulcer of right foot: Status: Acute Qualifiers: Diabetic foot ulcer location: other Diabetes mellitus type: type 2 Non-pressure ulcer stage: with fat layer exposed Qualified Code(s): E11.621 - Type 2 diabetes mellitus with foot ulcer; L97.512 - Non-pressure chronic ulcer of other part of right foot with fat layer exposed Category: Medical Code(s): E11.621 - Type 2 diabetes mellitus with foot ulcer; L97.519 - Non-pressure chronic ulcer of other part of right foot with unspecified severity (4) Diabetic ulcer of left foot: Status: Acute Qualifiers: Diabetic foot ulcer location: other Diabetes mellitus type: type 2 Non-pressure ulcer stage: with fat layer exposed Qualified Code(s): E11.621 - Type 2 diabetes mellitus with foot ulcer; L97.522 - Non-pressure chronic ulcer of other part of left foot with fat layer exposed Category: Medical Code(s): E11.621 - Type 2 diabetes mellitus with foot ulcer; L97.529 - Non-pressure chronic ulcer of other part of left foot with unspecified severity (5) Diabetes mellitus with diabetic neuropathy: Status: Acute Qualifiers: Diabetes mellitus type: type 2 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: without terminal operations manager use Qualified Code(s): E11.40 - Type 2 diabetes mellitus with diabetic neuropathy, unspecified Category: Medical Code(s): E11.40 - Type 2 diabetes mellitus with diabetic neuropathy, unspecified (6) PAD (peripheral artery disease): Status: Acute Category: Medical Code(s): I73.9 - Peripheral vascular disease, unspecified (7) Hyperlipidemia: Status: Chronic Qualifiers: Hyperlipidemia type: unspecified Qualified Code(s): E78.5 - Hyperlipidemia, unspecified Category: Medical Code(s): E78.5 - Hyperlipidemia, unspecified (8) Hypertension: Status: Chronic Qualifiers: Hypertension type: unspecified Qualified Code(s): I10 - Essential (primary) hypertension Category: Medical Code(s): I10 - Essential (primary) hypertension (9) Coronary artery disease: Status: Acute Qualifiers: Coronary Disease-Associated Artery/Lesion type: [place] artery [place] vs. transplanted heart: [place] heart Associated angina: without angina Qualified Code(s): I25.10 - Atherosclerotic heart disease of [place] coronary artery without angina pectoris Category: Medical Code(s): I25.10 - Atherosclerotic heart disease of [place] coronary artery without angina pectoris (10) Diabetes mellitus, type 2: Status: Acute Category: Medical Code(s): E11.9 - Type 2 diabetes mellitus without complications (11) Coronary artery disease: Status: Acute Qualifiers: Coronary Disease-Associated Artery/Lesion type: [place] artery [place] vs. transplanted heart: [place] heart Associated angina: without angina Qualified Code(s): I25.10 - Atherosclerotic heart disease of [place] coronary artery without angina pectoris Category: Medical Code(s): I25.10 - Atherosclerotic heart disease of [place] coronary artery without angina pectoris Plan Plan to continue current care, resume Metformin, increase sliding scale coverage, plan to SNF placement at discharge.
--- NOTE | 2024-08-04 09:16 | EXP.PHA.CONS ---
Pharmacy Consult Date: 08/04/24 Time: 09:16 Referring provider: DR. ANN Reason for Consult:: VANCOMYCIN LEVELS AND DOSE CHANGE Allergies Allergy/AdvReac Type Severity Reaction Status Date / Time No Known Allergies Allergy Verified 04/03/24 13:16 Home Medications ?Medication ?Instructions ?Recorded ?Confirmed ?Type allopurinol 300 mg tablet 300 mg PO DAILY 02/28/24 08/01/24 History amlodipine 5 mg tablet 5 mg PO DAILY 02/28/24 08/01/24 History aspirin 81 mg tablet,delayed 81 mg PO DAILY 02/28/24 08/01/24 History release carvedilol 3.125 mg tablet 3.125 mg PO BID 02/28/24 08/01/24 History clopidogrel 75 mg tablet 75 mg PO DAILY 02/28/24 08/01/24 History glimepiride 4 mg tablet 2 mg PO DAILY 02/28/24 08/02/24 History metformin 500 mg tablet 500 mg PO BID 02/28/24 08/01/24 History omeprazole 40 mg capsule,delayed 40 mg PO DAILY 02/28/24 08/01/24 History release sacubitril 24 mg-valsartan 26 mg 1 tab PO BID 02/28/24 08/01/24 History tablet (Entresto) vericiguat 10 mg tablet (Verquvo) 10 mg PO DAILY 02/28/24 08/01/24 History rosuvastatin 40 mg tablet (Crestor) 40 mg PO DAILY #90 tabs 07/23/24 08/01/24 Rx New Prescriptions to Start Prescriptions: Height: 1.78 m Weight: 86.545 kg Laboratory Results:: Laboratory Results - last 24 hr 08/03/24 10:31: POC Glucose 258 H 08/03/24 16:24: POC Glucose 158 H 08/03/24 20:28: POC Glucose 335 H* 08/03/24 20:50: Vancomycin Trough 22.7 H 08/04/24 02:05: Vancomycin Peak 36.7 08/04/24 06:00: POC Glucose 224 H Medical History: Medical History (Updated 08/01/24 @ 14:59 by Odette Trujillo DPM) Nonhealing skin ulcer Abnormal echocardiogram E. coli UTI Fracture of fifth metatarsal bone of right foot Foot lesion Severe sepsis CHF (congestive heart failure) Abnormal ECG LV dysfunction Ischemic cardiomyopathy Coronary artery disease COVID-19 Gout Hypertension Hyperlipidemia Diabetes mellitus, type 2 Onychomycosis Onychodystrophy Acquired metatarsus varus Abrasion of foot, right Fracture of fourth metatarsal bone of right foot Vaccine counseling Immunization due Blister of foot without infection Assessment and Plan Assessment and plan all Dx Assessment and Plan for all problems:: BASED ON PATIENT FACTORS AND VANCOMYCIN TROUGH/PEAK LEVELS OF 22.7/36.7 RESPECTIVELY, RECOMMEND CHANGING DOSING INTERVAL OF VANCOMYCIN TO Q18H. DOSE WILL REMAIN THE SAME AT 1,750MG. PHARMACY WILL CONTINUE TO MONITOR AND WILL ADJUST DOSE APPROPRIATE. -JUAN FRANCO, GEOFFREYD
[2024-08-04] MEDS: METFORMIN 500MG TABLET 500 MG PO ×2 (10:02→16:41)
[2024-08-04 11:10] LABS: POC Glucose,Bedside 208 (70-110)
[2024-08-04] MEDS: VANCOMYCIN/WATER FOR INJ (PEG) 1.75 GM/350 ML PIGGYBACK IV (15:03)
[2024-08-04 16:00] VITALS: BP 142/77; PULSE 70; RESP 16; TEMP 36.6; O2SAT 96
[2024-08-04 16:44] LABS: POC Glucose,Bedside 109 (70-110)
--- NOTE | 2024-08-04 16:48 | PC.NURSE ---
Addendum entered by Emeli William RN 08/04/24 16:57: Dressing to left great toe changed by overnight caregiver. Original Note: Pt is A&Ox4. Vital signs stable on room air. IV abx infused per JUN. Dressing to right lower extremity changed. Dressings to bilateral lower extremities C/D/I. No complaints of pain at this time. Pt sitting up in bed with no further needs voiced at this time. Call light within reach.
[2024-08-04 19:36] VITALS: BP 125/63; PULSE 71; RESP 16; TEMP 36.8; O2SAT 99
[2024-08-04 20:13] LABS: POC Glucose,Bedside 245 (70-110)
[2024-08-04] MEDS: ATORVASTATIN 40MG TABLET 80 MG PO (20:15)
[2024-08-04] MEDS: PANTOPRAZOLE 40MG TABLET 40 MG PO (20:16)
[2024-08-05 03:57] VITALS: BP 129/73; PULSE 66; RESP 16; TEMP 36.7; O2SAT 98; BMI 27.2
[2024-08-05] MEDS: PIPERACILLIN/TAZO 3.375 GM in 0.9 % SODIUM CHLORIDE 50 ML IV ×4 (04:19→20:40)
[2024-08-05] MEDS: METFORMIN 500MG TABLET 500 MG PO ×2 (06:40→16:34)
[2024-08-05 06:47] LABS: POC Glucose,Bedside 100 (70-110)
[2024-08-05 07:55] LABS: Basophils % 0.4 % (0.1-2.0); Eosinophils # 0.2 K/mm3 (0.0-0.4); Eosinophils % 4.2 % (0.1-12.0); Hematocrit 34.4 % (42.0-52.0); Hemoglobin 11.3 g/dL (14.1-18.0); Lymphocytes % 18.4 % (10-50); Mean Corpuscular HGB Conc 32.8 g/dL (31.8-35.4); Mean Corpuscular Volume 94.5 fl (80-94); Mean Platelet Volume 9.3 fl (7.4-10.4); Monocytes # 0.4 K/mm3 (0.1-1.0); Monocytes % 7.5 % (1.7-9.3); Neutrophils # 3.6 K/mm3 (1.8-7.8); Neutrophils % 69.3 % (37.0-80.0); Nucleated Red Blood Cells # 0 10^3/uL; Nucleated Red Blood Cells % 0 %; Platelet Count 201 K/mm3 (142-424); Red Blood Count 3.64 M/mm3 (4.60-6.20); Red Cell Distribution Width 13.6 % (11.5-17.5); Red Cell Distribution Width-SD 47.8 fL; White Blood Count 5.2 K/mm3 (4.8-10.8)
[2024-08-05 08:00] VITALS: BP 138/86; PULSE 75; RESP 18; TEMP 36.6; O2SAT 98
[2024-08-05 08:11] LABS: Blood Urea Nitrogen 12 mg/dl (9-20); Creatinine Clearance Estimated 95 mL/min (50-200); Estimated Glomerular Filt Rate 76 ml/min (>60); GFR (African American) 92 ML/MIN (>60)
[2024-08-05 08:12] LABS: Calcium 8.8 mg/dl (8.4-10.2); Carbon Dioxide 23 mmol/L (22.0-30.0); Glucose 109 mg/dl (74-100)
--- NOTE | 2024-08-05 08:32 | EXP.ACUTE.PN ---
Subjective *Date: 08/05/24 *Time: 08:32 Interval history: Patient with no new complaints today. Medical Exam Vital signs and Labs for Last 24 Hours: Vital Signs Temp Pulse Resp BP Pulse Ox O2 Del Method 08/05/24 08:00 97.8 F 75 18 138/86 98 Room Air 08/05/24 06:44 Room Air 08/05/24 05:00 Room Air 08/05/24 03:57 98.0 F 66 16 129/73 98 Room Air 08/05/24 03:00 Room Air 08/05/24 01:00 Room Air 08/04/24 23:00 Room Air 08/04/24 21:00 Room Air 08/04/24 20:00 Room Air 08/04/24 19:36 98.2 F 71 16 125/63 99 Room Air 08/04/24 18:51 Room Air 08/04/24 17:00 Room Air 08/04/24 16:00 97.8 F 70 16 142/77 H 96 Room Air 08/04/24 15:00 Room Air 08/04/24 13:00 Room Air 08/04/24 11:00 Room Air 08/04/24 09:00 Room Air Intake and Output 08/04/24 08/05/24 08/05/24 23:59 07:59 15:59 Intake Total 480 / 2470 100 / 700 600 / 700 Output Total 850 / 4175 600 / 1075 475 / 1075 Balance -370 / -1705 -500 / -375 125 / -375 Intake: Intake, Oral Amount 480 / 1920 600 / 600 Intake, Total IV Amount 100 / 100 Piperacillin/Tazo 3.375 gm In 0 100 / 100 .9 % Sodium Chloride 50 ml @ 100 mls/hr IV Q6H [facility] Rx#: [id number] Output: Output, Urine Amount 850 / 4175 600 / 1075 475 / 1075 Other: Number of Unmeasured Voids 0 0 Number of Bowel Movements 1 Weight 190 lb 4.8 oz Patient Weight 08/05/24 23:59 Weight 190 lb 4.8 oz Laboratory Results - last 24 hr 08/04/24 11:01: POC Glucose 208 H 08/04/24 16:37: POC Glucose 109 08/04/24 19:57: POC Glucose 245 H 08/05/24 06:39: POC Glucose 100 08/05/24 07:11: WBC 5.2, RBC 3.64 L, Hgb 11.3 L, Hct 34.4 L, MCV 94.5 H, MCH 31.0, MCHC 32.8, RDW 13.6, Plt Count 201, MPV 9.3, Neut % (Auto) 69.3, Lymph % (Auto) 18.4, [place] % (Auto) 7.5, Eos % (Auto) 4.2, Baso % (Auto) 0.4, Neut # (Auto) 3.6, Lymph # (Auto) 1.0, [place] # (Auto) 0.4, Eos # (Auto) 0.2, Baso # (Auto) 0.0, Carbon Dioxide 23, BUN 12, Creatinine 1.00, Estimated Creat Clear 95, Estimated GFR 76, Est GFR ( Amer) 92, Glucose 109 H, Calcium 8.8 I & O for Labs for Last 24 Hours: Intake & Output 08/02/24 08/03/24 08/04/24 08/05/24 23:59 23:59 23:59 23:59 Intake Total 1730 / 2370 1710 / 2110 2370 / 2470 700 / 700 Output Total 3650 / 3650 3420 / 3420 3575 / 4175 1075 / 1075 Balance -1920 / -1280 -1710 / -1310 -1205 / -1705 -375 / -375 Weight 199 lb 9.352 oz 188 lb 3.2 oz 190 lb 12.8 oz 190 lb 4.8 oz Microbiology Reports for the Last 24 Hours: Microbiology 08/01/24 14:17 Foot,Left Gram Stain - Final 08/01/24 14:17 Foot,Left Wound Culture - Preliminary Proteus mirabilis Enterococcus raffinosus 08/01/24 15:42 Foot,Left - Other Bone Culture - Preliminary 08/01/24 15:40 Foot,Left - Wound Gram Stain - Final 08/01/24 15:40 Foot,Left - Wound Wound Culture - Preliminary Proteus vulgaris Gram Positive Cocci Constitutional: Present no acute distress Respiratory: Present normal respiratory effort Cardiac: Present Reg Rate and Rhythm Comment:: Dressings in place over both feet Neuro: Present Grossly Intact and moves all extremities Assessment and Plan *Assessment and plan (1) Osteomyelitis of great toe of left foot: Status: Acute Category: Medical Code(s): M86.9 - Osteomyelitis, unspecified (2) Cellulitis of left foot: Status: Acute Category: Medical Code(s): L03.116 - Cellulitis of left lower limb (3) Diabetic ulcer of right foot: Status: Acute Qualifiers: Diabetic foot ulcer location: other Diabetes mellitus type: type 2 Non-pressure ulcer stage: with fat layer exposed Qualified Code(s): E11.621 - Type 2 diabetes mellitus with foot ulcer; L97.512 - Non-pressure chronic ulcer of other part of right foot with fat layer exposed Category: Medical Code(s): E11.621 - Type 2 diabetes mellitus with foot ulcer; L97.519 - Non-pressure chronic ulcer of other part of right foot with unspecified severity (4) Diabetic ulcer of left foot: Status: Acute Qualifiers: Diabetic foot ulcer location: other Diabetes mellitus type: type 2 Non-pressure ulcer stage: with fat layer exposed Qualified Code(s): E11.621 - Type 2 diabetes mellitus with foot ulcer; L97.522 - Non-pressure chronic ulcer of other part of left foot with fat layer exposed Category: Medical Code(s): E11.621 - Type 2 diabetes mellitus with foot ulcer; L97.529 - Non-pressure chronic ulcer of other part of left foot with unspecified severity (5) Diabetes mellitus with diabetic neuropathy: Status: Acute Qualifiers: Diabetes mellitus type: type 2 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 insulin use: without middle or intermediate school principal use Qualified Code(s): E11.40 - Type 2 diabetes mellitus with diabetic neuropathy, unspecified Category: Medical Code(s): E11.40 - Type 2 diabetes mellitus with diabetic neuropathy, unspecified (6) PAD (peripheral artery disease): Status: Acute Category: Medical Code(s): I73.9 - Peripheral vascular disease, unspecified (7) Hyperlipidemia: Status: Chronic Qualifiers: Hyperlipidemia type: unspecified Qualified Code(s): E78.5 - Hyperlipidemia, unspecified Category: Medical Code(s): E78.5 - Hyperlipidemia, unspecified (8) Hypertension: Status: Chronic Qualifiers: Hypertension type: unspecified Qualified Code(s): I10 - Essential (primary) hypertension Category: Medical Code(s): I10 - Essential (primary) hypertension (9) Coronary artery disease: Status: Acute Qualifiers: Coronary Disease-Associated Artery/Lesion type: [place] artery [place] vs. transplanted heart: [place] heart Associated angina: without angina Qualified Code(s): I25.10 - Atherosclerotic heart disease of [place] coronary artery without angina pectoris Category: Medical Code(s): I25.10 - Atherosclerotic heart disease of [place] coronary artery without angina pectoris (10) Diabetes mellitus, type 2: Status: Acute Category: Medical Code(s): E11.9 - Type 2 diabetes mellitus without complications (11) Coronary artery disease: Status: Acute Qualifiers: Coronary Disease-Associated Artery/Lesion type: [place] artery [place] vs. transplanted heart: [place] heart Associated angina: without angina Qualified Code(s): I25.10 - Atherosclerotic heart disease of [place] coronary artery without angina pectoris Category: Medical Code(s): I25.10 - Atherosclerotic heart disease of [place] coronary artery without angina pectoris Plan BMP results pending, probable discharge to SNF tomorrow.
[2024-08-05] MEDS: SACUBITRIL/VALSARTAN 24-26MG TABLET 1 EACH PO ×2 (08:53→20:40)
[2024-08-05] MEDS: CARVEDILOL 3.125MG TABLET 3.125 MG PO ×2 (08:53→20:40)
[2024-08-05] MEDS: CLOPIDOGREL 75MG TAB 75 MG PO (08:53)
[2024-08-05] MEDS: ENOXAPARIN 40MG/0.4ML SYRINGE 40 MG SUBCUT (08:53)
[2024-08-05] MEDS: ALLOPURINOL 300MG TABLET 300 MG PO (08:53)
--- NOTE | 2024-08-05 08:54 | EXP.PHA.PN ---
Subjective *Date: 08/05/24 *Time: 08:54 Medical Exam Vital signs and Labs for Last 24 Hours: Vital Signs Temp Pulse Resp BP Pulse Ox O2 Del Method 08/05/24 08:00 97.8 F 75 18 138/86 98 Room Air 08/05/24 06:44 Room Air 08/05/24 05:00 Room Air 08/05/24 03:57 98.0 F 66 16 129/73 98 Room Air 08/05/24 03:00 Room Air 08/05/24 01:00 Room Air 08/04/24 23:00 Room Air 08/04/24 21:00 Room Air 08/04/24 20:00 Room Air 08/04/24 19:36 98.2 F 71 16 125/63 99 Room Air 08/04/24 18:51 Room Air 08/04/24 17:00 Room Air 08/04/24 16:00 97.8 F 70 16 142/77 H 96 Room Air 08/04/24 15:00 Room Air 08/04/24 13:00 Room Air 08/04/24 11:00 Room Air 08/04/24 09:00 Room Air Intake and Output 08/04/24 08/05/24 08/05/24 23:59 07:59 15:59 Intake Total 480 / 2470 100 / 700 600 / 700 Output Total 850 / 4175 600 / 1075 475 / 1075 Balance -370 / -1705 -500 / -375 125 / -375 Intake: Intake, Oral Amount 480 / 1920 600 / 600 Intake, Total IV Amount 100 / 100 Piperacillin/Tazo 3.375 gm In 0 100 / 100 .9 % Sodium Chloride 50 ml @ 100 mls/hr IV Q6H [facility] Rx#: [id number] Output: Output, Urine Amount 850 / 4175 600 / 1075 475 / 1075 Other: Number of Unmeasured Voids 0 0 Number of Bowel Movements 1 Weight 86.319 kg Patient Weight 08/05/24 23:59 Weight 86.319 kg Laboratory Results - last 24 hr 08/04/24 11:01: POC Glucose 208 H 08/04/24 16:37: POC Glucose 109 08/04/24 19:57: POC Glucose 245 H 08/05/24 06:39: POC Glucose 100 08/05/24 07:11: WBC 5.2, RBC 3.64 L, Hgb 11.3 L, Hct 34.4 L, MCV 94.5 H, MCH 31.0, MCHC 32.8, RDW 13.6, Plt Count 201, MPV 9.3, Neut % (Auto) 69.3, Lymph % (Auto) 18.4, [place] % (Auto) 7.5, Eos % (Auto) 4.2, Baso % (Auto) 0.4, Neut # (Auto) 3.6, Lymph # (Auto) 1.0, [place] # (Auto) 0.4, Eos # (Auto) 0.2, Baso # (Auto) 0.0, Carbon Dioxide 23, BUN 12, Creatinine 1.00, Estimated Creat Clear 95, Estimated GFR 76, Est GFR ( Amer) 92, Glucose 109 H, Calcium 8.8 I & O for Labs for Last 24 Hours: Intake & Output 08/02/24 08/03/24 08/04/24 08/05/24 23:59 23:59 23:59 23:59 Intake Total 1730 / 2370 1710 / 2110 2370 / 2470 700 / 700 Output Total 3650 / 3650 3420 / 3420 3575 / 4175 1075 / 1075 Balance -1920 / -1280 -1710 / -1310 -1205 / -1705 -375 / -375 Weight 90.53 kg 85.366 kg 86.545 kg 86.319 kg Microbiology Reports for the Last 24 Hours: Microbiology 08/01/24 14:17 Foot,Left Gram Stain - Final 08/01/24 14:17 Foot,Left Wound Culture - Preliminary Proteus mirabilis Enterococcus raffinosus 08/01/24 15:40 Foot,Left - Wound Gram Stain - Final 08/01/24 15:40 Foot,Left - Wound Wound Culture - Preliminary Proteus vulgaris Enterococcus faecalis Gram Positive Cocci 08/01/24 15:42 Foot,Left - Other Bone Culture - Preliminary The patient's infection will respond to the chosen ABx?: Yes Is the patient receiving the right drug, dose, and route?: Yes Could a more targeted ABx be ordered?: No
[2024-08-05 09:30] LABS: Anion Gap 14.8 mEq/L (5-15); Chloride 106 mmol/L (98-107); Potassium 3.8 mmoL/L (3.5-5.1); Sodium 140 mmol/L (136-145)
[2024-08-05] MEDS: VANCOMYCIN/WATER FOR INJ (PEG) 1.75 GM/350 ML PIGGYBACK IV (10:13)
[2024-08-05 11:30] LABS: POC Glucose,Bedside 184 (70-110)
[2024-08-05] MEDS: humaLOG 100 UNITS/ML 10ML VIAL (SSI) SUBCUT ×2 (11:38→20:40)
[2024-08-05 16:00] VITALS: BP 134/78; PULSE 61; RESP 18; TEMP 36.7; O2SAT 99
[2024-08-05 16:37] LABS: POC Glucose,Bedside 106 (70-110)
--- NOTE | 2024-08-05 17:14 | PC.NURSE ---
Patient is A&Ox4. Vital signs stable tolerating room air. IV abx infused per JUN. Pt has no complaints of pain reported. Dressings to bilateral lower extremities remain C/D/I. Dressing change completed. Pt has no further complaints voiced at this time. Call light within reach. Plan [facility] for [facility].
[2024-08-05 19:46] VITALS: BP 145/91; PULSE 70; RESP 16; TEMP 36.8; O2SAT 99
[2024-08-05 20:11] LABS: POC Glucose,Bedside 189 (70-110)
[2024-08-05] MEDS: PANTOPRAZOLE 40MG TABLET 40 MG PO (20:40)
[2024-08-05] MEDS: ATORVASTATIN 40MG TABLET 80 MG PO (20:40)
[2024-08-06] MEDS: PIPERACILLIN/TAZO 3.375 GM in 0.9 % SODIUM CHLORIDE 50 ML IV (03:09)
[2024-08-06] MEDS: PHA TO NURSING INSTRUCTION 1 EACH NOTAPPLIC (03:33)
[2024-08-06 03:45] LABS: Vancomycin,Trough 21.1 ug/mL (5.0-10.0)
[2024-08-06 03:57] VITALS: BP 130/71; PULSE 71; RESP 16; TEMP 36.6; O2SAT 98; BMI 27.2
--- NOTE | 2024-08-06 04:19 | PC.NURSE ---
Spoke with Gloria with [facility] about critical vancomycin trough. She stated that morning dose was not needed and she would adjust order.
[2024-08-06 06:24] LABS: POC Glucose,Bedside 90 (70-110)
--- NOTE | 2024-08-06 07:23 | EXP.ORTH.PN ---
Subjective *Date: 08/06/24 *Time: 08:11 Interval history: Patient resting in bed comfortably this morning denies any acute pain. Stable from Podiatry stand point. Patient is probably going to be discharged to SNF at some point today. Ortho Exam (Inpt) Vital signs and Labs for Last 24 Hours: Temp Pulse Resp BP Pulse Ox O2 Del Method 97.8 F 71 16 130/71 98 Room Air 08/06/24 03:57 08/06/24 03:57 08/06/24 03:57 08/06/24 03:57 08/06/24 03:57 08/06/24 06:51 Laboratory Results - last 24 hr 08/05/24 07:11: WBC 5.2, RBC 3.64 L, Hgb 11.3 L, Hct 34.4 L, MCV 94.5 H, MCH 31.0, MCHC 32.8, RDW 13.6, Plt Count 201, MPV 9.3, Neut % (Auto) 69.3, Lymph % (Auto) 18.4, [place] % (Auto) 7.5, Eos % (Auto) 4.2, Baso % (Auto) 0.4, Neut # (Auto) 3.6, Lymph # (Auto) 1.0, [place] # (Auto) 0.4, Eos # (Auto) 0.2, Baso # (Auto) 0.0, Sodium 140, Potassium 3.8, Chloride 106, Carbon Dioxide 23, Anion Gap 14.8, BUN 12, Creatinine 1.00, Estimated Creat Clear 95, Estimated GFR 76, Est GFR ( Amer) 92, Glucose 109 H, Calcium 8.8 08/05/24 11:20: POC Glucose 184 H 08/05/24 16:29: POC Glucose 106 08/05/24 20:02: POC Glucose 189 H 08/06/24 03:08: Vancomycin Trough 21.1 H 08/06/24 06:17: POC Glucose 90 Temp Pulse Resp BP Pulse Ox 99.1 F 85 18 121/75 98 10/11/22 07:44 10/11/22 07:44 10/11/22 07:44 10/11/22 07:44 10/11/22 07:44 Laboratory Results - last 24 hr 10/10/22 17:09: Urine Color Dk yellow, Urine Appearance Cloudy, Urine pH 5.5, Ur Specific [place] 1.025, Urine Protein 2+, Urine Glucose (UA) 2+, Urine Ketones Trace, Urine Blood 3+, Urine Nitrate Positive, Urine Bilirubin Negative, Urine Urobilinogen 1.0, Ur Leukocyte Esterase 1+ A, Urine RBC 20-50, Urine WBC 20-50, Ur Squamous Epith Cells 3-5, Urine Bacteria 2+ 10/10/22 17:33: WBC 17.2 H, RBC 4.99, Hgb 15.5, Hct 47.4, MCV 95.0 H, MCH 31.1, MCHC 32.7, RDW 14.4, Plt Count 204, MPV 8.0, Neut % (Auto) 92.1 H, Lymph % (Auto) 2.7 L, [place] % (Auto) 5.0, Eos % (Auto) 0.1, Baso % (Auto) 0.1, Neut # (Auto) 15.9 H, Lymph # (Auto) 0.5 L, [place] # (Auto) 0.9, Eos # (Auto) 0.0, Baso # (Auto) 0.0, Total Counted 100, Neutrophils % (Manual) 91 H, Lymphocytes % (Manual) 8 L, Monocytes % (Manual) 1 L, Platelet Estimate Normal, RBC Morphology Normal 10/10/22 17:33: Sodium 138, Potassium 4.0, Chloride 100, Carbon Dioxide 25, Anion Gap 17.0 H, BUN 17, Creatinine 1.40 H, Estimated Creat Clear 73, Estimated GFR 52 L, Est GFR ( Amer) 63, Glucose 159 H, Calcium 9.0, Total Bilirubin 1.2, AST 32, ALT 26, Alkaline Phosphatase 92, Total Protein 7.1, Albumin 4.3, Globulin 2.8, Albumin/Globulin Ratio 1.5, Procalcitonin 0.302 10/10/22 17:33: Lactate 2.2 H 10/10/22 18:45: SARS-CoV-2 (PCR) Not detected, Influenza A Untype (PCR) Not detected, Influenza Type B (PCR) Not detected 10/10/22 22:10: Lactate 2.7 H 10/11/22 00:25: Lactate 1.4 10/11/22 05:35: WBC 14.0 H, RBC 4.43 L, Hgb 13.8 L D, Hct 41.7 L, MCV 94.2 H, MCH 31.1, MCHC 33.1, RDW 14.4, Plt Count 183, MPV 7.9, Neut % (Auto) 89.5 H, Lymph % (Auto) 5.3 L, [place] % (Auto) 5.0, Eos % (Auto) 0.1, Baso % (Auto) 0.1, Neut # (Auto) 12.5 H, Lymph # (Auto) 0.7, [place] # (Auto) 0.7, Eos # (Auto) 0.0, Baso # (Auto) 0.0, Total Counted 100, Neutrophils % (Manual) 85 H, Lymphocytes % (Manual) 11, Monocytes % (Manual) 4, Platelet Estimate Normal, RBC Morphology Normal 10/11/22 05:35: Sodium 139, Potassium 3.9, Chloride 105, Carbon Dioxide 24, Anion Gap 13.9, BUN 20, Creatinine 1.30 H, Estimated Creat Clear 77, Estimated GFR 57 L, Est GFR ( Amer) 68, Glucose 61 L D, Calcium 7.9 L 10/11/22 05:35: ESR 35 H 10/11/22 05:35: C-Reactive Protein 239.0 H I & O for Labs for Last 24 Hours: Intake & Output 08/03/24 08/04/24 08/05/24 08/06/24 23:59 23:59 23:59 23:59 Intake Total 1710 / 1710 2370 / 2370 1710 / 1710 100 / 100 Output Total 3420 / 3420 3575 / 3575 3175 / 3175 800 / 800 Balance -1710 / -1710 -1205 / -1205 -1465 / -1465 -700 / -700 Weight 188 lb 3.2 oz 190 lb 12.8 oz 190 lb 4.8 oz 190 lb 3.2 oz Intake & Output 10/08/22 10/09/22 10/10/22 10/11/22 23:59 23:59 23:59 23:59 Intake Total 480 / 480 Output Total 300 / 300 100 / 100 Balance -300 / -300 380 / 380 Weight 196 lb 1 oz 196 lb 0.913 oz Microbiology Reports for the Last 24 Hours: Microbiology 08/01/24 15:14 Blood Blood Culture - Preliminary NO GROWTH AFTER 4 DAYS 08/01/24 13:45 Blood Blood Culture - Preliminary NO GROWTH AFTER 4 DAYS 08/01/24 15:42 Foot,Left - Other Bone Culture - Preliminary Gram Negative Rods Gram Negative Rods#2 Gram Positive Cocci 08/01/24 14:17 Foot,Left Gram Stain - Final 08/01/24 14:17 Foot,Left Wound Culture - Preliminary Proteus mirabilis Enterococcus raffinosus 08/01/24 15:40 Foot,Left - Wound Gram Stain - Final 08/01/24 15:40 Foot,Left - Wound Wound Culture - Preliminary Proteus vulgaris Enterococcus faecalis Gram Positive Cocci Microbiology 10/10/22 17:09 Urine,Clean Catch Urine Culture - Preliminary Gram Negative Rods Constitutional: Present no acute distress Head: Present normocephalic Neck: Present normal inspection Respiratory: Present normal respiratory effort and able to speak in complete sentences Cardiac: Present posterior tibial pulses present and pedal pulses present Comment:: Weakly palpable pedal pulses noted b/l DP and PT. CFT >4-5 seconds. Skin temp wnl proximal to cool distal b/l LE. No varicosities noted. No edema noted. GI: Present other (no obesity) Rectal (male): Present deferred (male): Present deferred Extremities: Present normal inspection; Absent normal capillary refill (delayed) Skin: Present dry Comment:: Right hallux dorsal toe DFU: 100% granular, 0.6 x 0.3 x 0.2cm, thru skin into subq. Right lateral ankle DFU: 100% granular, 3.0 x 2.8 x 0.2cm, thru skin into subq. Left 5th toe DFU: 100% granular. Left hallux amp sutures clean dry and intact. Mild localized edema, erythema. No new drainage, malodor or purulence. Neuro: Present alert and awake Ankle: bilateral: normal inspection Feet/Toes: bilateral: deformity (pes cavus), bilateral: nail abnormalities, bilateral: Ingrown Toenail, bilateral: onychomycosis and bilateral: wound (S/p left hallux amputation, cellulitis, left fifth toe DFU, right hallux DFU, right ankle ulcer) Comments:: Metatarsus varus bilateral feet, the metatarsal bones deviated inward no pain noted with active or passive ROM of the ankle, STJ or midtarsal joints, gastroc-soleus equinus b/l. Right 4-5th shaft of metatarsal old fracture, no pain to palpation. Assessment and Plan *Assessment and plan (1) Osteomyelitis of great toe of left foot: Status: Acute Category: Medical Code(s): M86.9 - Osteomyelitis, unspecified (2) Cellulitis of left foot: Status: Acute Category: Medical Code(s): L03.116 - Cellulitis of left lower limb (3) Diabetic ulcer of right foot: Status: Acute Qualifiers: Diabetes mellitus type: type 2 Diabetic foot ulcer location: other Non-pressure ulcer stage: with fat layer exposed Qualified Code(s): E11.621 - Type 2 diabetes mellitus with foot ulcer; L97.512 - Non-pressure chronic ulcer of other part of right foot with fat layer exposed Category: Medical Code(s): E11.621 - Type 2 diabetes mellitus with foot ulcer; L97.519 - Non-pressure chronic ulcer of other part of right foot with unspecified severity (4) Diabetic ulcer of left foot: Status: Acute Qualifiers: Diabetes mellitus type: type 2 Diabetic foot ulcer location: other Non-pressure ulcer stage: with fat layer exposed Qualified Code(s): E11.621 - Type 2 diabetes mellitus with foot ulcer; L97.522 - Non-pressure chronic ulcer of other part of left foot with fat layer exposed Category: Medical Code(s): E11.621 - Type 2 diabetes mellitus with foot ulcer; L97.529 - Non-pressure chronic ulcer of other part of left foot with unspecified severity (5) Diabetes mellitus with diabetic neuropathy: Status: Acute Qualifiers: Diabetes mellitus superintendent container terminal insulin use: without superintendent container terminal use Diabetes mellitus type: type 2 Qualified Code(s): E11.40 - Type 2 diabetes mellitus with diabetic neuropathy, unspecified Category: Medical Code(s): E11.40 - Type 2 diabetes mellitus with diabetic neuropathy, unspecified (6) PAD (peripheral artery disease): Status: Acute Category: Medical Code(s): I73.9 - Peripheral vascular disease, unspecified Plan Surgery, 08/01/24: s/p Right hallux and lateral ankle DFU wound debridement x2, Left 5th toe DFU wound debridement, Left foot irrigation and debridement, hallux amputation Intraop Specimens: Path: Right ankle tissue path: Pending Left distal great toe: Pending Left proximal phalanx bone: Pending Micro: Left distal great toe WCx: Proteus vulgaris, Enterococcus faecalis, Streptococcus porcinus Left distal phalanx bone culture: Klebsiella oxytoca, Proteus mirabilis, Enterococcus faecalis Specimens: 08/01/24: Left hallux WCx: Proteus mirabilis, Enterococcus raffinosus 08/01/24: Blood cultures: NG x4 08/06/24: POD #5 Podiatry DOLLYMAN and I saw patient together. -B/L foot/ankle dressing changed. -Wounds are stable. No bedside debridement today. -Sutures clean dry and intact to left hallux amp site. No new purulence noted. -Betadine soaked gauze, DSD applied. Plan: Discussed plan of care with Dr Grissom. -Stand from Podiatry stand point for d/c to SNF when ready. -Rec SNF placement, pending [place]. -Continue IV abx per Dr Grissom: broad spectrum coverage: Vanco, Zosyn. -Nursing to do daily dressing changes. -Daily dsg: betadine soaked gauze to left hallux amp site, dry sterile dressing (joss rolando). Other wounds (L 5th toe, R hallux, R lateral ankle): silver (or collagen) to wounds, secure with dry sterile dressing. -PWB in b/l post op shoes, walker. -Appt scheduled in one week with [facility] wound care clinic: 08/13/24. -Appt scheduled in 1-2 weeks with Podiatry: 08/16/24.
[2024-08-06] MEDS: METFORMIN 500MG TABLET 500 MG PO (07:39)
--- NOTE | 2024-08-06 07:43 | P.CONPHA_ITS ---
Pharmacy Consult Date: 08/06/24 Time: 07:43 Referring provider: DR ANN Reason for Consult:: VANCOMYCIN TROUGH LEVEL OBTAINED Allergies Allergy/AdvReac Type Severity Reaction Status Date / Time No Known Allergies Allergy Verified 04/03/24 13:16 Home Medications ?Medication ?Instructions ?Recorded ?Confirmed ?Type allopurinol 300 mg tablet 300 mg PO DAILY 02/28/24 08/01/24 History amlodipine 5 mg tablet 5 mg PO DAILY 02/28/24 08/01/24 History aspirin 81 mg tablet,delayed 81 mg PO DAILY 02/28/24 08/01/24 History release carvedilol 3.125 mg tablet 3.125 mg PO BID 02/28/24 08/01/24 History clopidogrel 75 mg tablet 75 mg PO DAILY 02/28/24 08/01/24 History glimepiride 4 mg tablet 2 mg PO DAILY 02/28/24 08/02/24 History metformin 500 mg tablet 500 mg PO BID 02/28/24 08/01/24 History omeprazole 40 mg capsule,delayed 40 mg PO DAILY 02/28/24 08/01/24 History release sacubitril 24 mg-valsartan 26 mg 1 tab PO BID 02/28/24 08/01/24 History tablet (Entresto) vericiguat 10 mg tablet (Verquvo) 10 mg PO DAILY 02/28/24 08/01/24 History rosuvastatin 40 mg tablet (Crestor) 40 mg PO DAILY #90 tabs 07/23/24 08/01/24 Rx New Prescriptions to Start Prescriptions: Height: 1.78 m Weight: 86.273 kg Laboratory Results:: Laboratory Results - last 24 hr 08/05/24 07:11: WBC 5.2, RBC 3.64 L, Hgb 11.3 L, Hct 34.4 L, MCV 94.5 H, MCH 31.0, MCHC 32.8, RDW 13.6, Plt Count 201, MPV 9.3, Neut % (Auto) 69.3, Lymph % (Auto) 18.4, [place] % (Auto) 7.5, Eos % (Auto) 4.2, Baso % (Auto) 0.4, Neut # (Auto) 3.6, Lymph # (Auto) 1.0, [place] # (Auto) 0.4, Eos # (Auto) 0.2, Baso # (Auto) 0.0, Sodium 140, Potassium 3.8, Chloride 106, Carbon Dioxide 23, Anion Gap 14.8, BUN 12, Creatinine 1.00, Estimated Creat Clear 95, Estimated GFR 76, Est GFR ( Amer) 92, Glucose 109 H, Calcium 8.8 08/05/24 11:20: POC Glucose 184 H 08/05/24 16:29: POC Glucose 106 08/05/24 20:02: POC Glucose 189 H 08/06/24 03:08: Vancomycin Trough 21.1 H 08/06/24 06:17: POC Glucose 90 Medical History: Medical History (Updated 08/01/24 @ 14:59 by Odette Trujillo DPM) Nonhealing skin ulcer Abnormal echocardiogram E. coli UTI Fracture of fifth metatarsal bone of right foot Foot lesion Severe sepsis CHF (congestive heart failure) Abnormal ECG LV dysfunction Ischemic cardiomyopathy Coronary artery disease COVID-19 Gout Hypertension Hyperlipidemia Diabetes mellitus, type 2 Onychomycosis Onychodystrophy Acquired metatarsus varus Abrasion of foot, right Fracture of fourth metatarsal bone of right foot Vaccine counseling Immunization due Blister of foot without infection Assessment and Plan Assessment and plan all Dx Assessment and Plan for all problems:: Pharmacokinetic dosing service Weight: 86.273 Kilograms Vancomycin single level analysis: Current dose being given: 1750 mg Current dosing interval: 18 hrs Current infusion time (hrs): 2 Single level Trough Data: Trough level obtained: 21.1 mcg/ml Timing of trough - # of hrs before next dose: 0.5 Hrs (08/06/24 03:08) Desired peak: 35 mcg/ml Desired trough: 12.5 mcg/ml Estimated PK Parameters: New rate constant (elvin): 0.045 hr-1 Half-life: 15.40 Hours Vd from levels: 69.02 Liters (0.7 L/kg) CLvanco=?? 3.106 L/hr Estimated New Dose and Interval Recommended dose: 1702.3 mg Recommended interval: 24.9 Hrs Recommendations: Give Vancomycin 1750 mg q 24 hrs. Infuse over 2 hrs Expected Cpeak: 36.7 mcg/mL Expected Ctrough: 13.6 mcg/mL AUC 0-24 /SIMON Data: SIMON 0.5 mcg/mL:?? AUC/SIMON:? 1126.9 SIMON 1.0 mcg/mL:?? AUC/SIMON:? 563.4 Thank you for the consult
[2024-08-06 08:00] VITALS: BP 138/89; PULSE 75; RESP 16; TEMP 37.1; O2SAT 95
[2024-08-06] MEDS: CLOPIDOGREL 75MG TAB 75 MG PO (08:23)
[2024-08-06] MEDS: ENOXAPARIN 40MG/0.4ML SYRINGE 40 MG SUBCUT (08:23)
[2024-08-06] MEDS: ALLOPURINOL 300MG TABLET 300 MG PO (08:23)
[2024-08-06] MEDS: SACUBITRIL/VALSARTAN 24-26MG TABLET 1 EACH PO (08:23)
[2024-08-06] MEDS: CARVEDILOL 3.125MG TABLET 3.125 MG PO (08:23)
--- NOTE | 2024-08-06 08:43 | XR_ITS ---
FINAL REPORT CLINICAL HISTORY: Confirm PICC line placement COMPARISON: 04/14/2024 FINDINGS: A single view of the chest was obtained. The film was obtained with lordotic positioning. The heart size is normal. The mediastinum is normal. The lungs are underinflated. There is no focal infiltrate or edema. There are no pleural effusions. There is no pneumothorax. There is no osseous abnormality. The PICC line tip is located at the junction of the SVC and right atrium. IMPRESSION: PICC line tip at the junction of the SVC and right atrium. Reviewed, Interpreted and Dictated by Hermes Zepeda MD Transcribed by Marianne Mistry Authenticated and [facility]
[2024-08-06] MEDS: CEFTRIAXONE 1 GM 1 GM in 0.9 % SODIUM CHLORIDE 50 ML IV (09:02)
--- NOTE | 2024-08-06 09:02 | EXP.PN ---
Subjective *Date: 08/06/24 *Time: 09:07 Interval history: Patient states he is doing okay. He ate all of his breakfast this morning. He was out of bed yesterday sat in a chair. Dressing changes on bilateral feet changed per podiatry. He denies chest pain and shortness of breath. Exam Data for Last 24 hours Vital signs and Labs for Last 24 Hours: Temp Pulse Resp BP Pulse Ox O2 Del Method 98.7 F 75 16 138/89 95 Room Air 08/06/24 08:00 08/06/24 08:00 08/06/24 08:00 08/06/24 08:00 08/06/24 08:00 08/06/24 08:00 Laboratory Results - last 24 hr 08/05/24 07:11: Sodium 140, Potassium 3.8, Chloride 106, Anion Gap 14.8 08/05/24 11:20: POC Glucose 184 H 08/05/24 16:29: POC Glucose 106 08/05/24 20:02: POC Glucose 189 H 08/06/24 03:08: Vancomycin Trough 21.1 H 08/06/24 06:17: POC Glucose 90 I & O for Last 24 hours: Intake & Output 08/03/24 08/04/24 08/05/24 08/06/24 11:59 11:59 11:59 11:59 Intake Total 1800 / 1800 2160 / 2160 1660 / 1660 1590 / 1590 Output Total 3500 / 3500 3070 / 3070 3250 / 3250 3300 / 3300 Balance -1700 / -1700 -910 / -910 -1590 / -1590 -1710 / -1710 Weight 188 lb 3.2 oz 190 lb 12.8 oz 190 lb 4.8 oz 190 lb 3.2 oz Microbiology Reports for the Last 24 Hours: Microbiology 08/01/24 15:42 Foot,Left - Other Bone Culture - Final Klebsiella oxytoca Proteus mirabilis Enterococcus faecalis 08/01/24 15:40 Foot,Left - Wound Gram Stain - Final 08/01/24 15:40 Foot,Left - Wound Wound Culture - Preliminary Proteus vulgaris Enterococcus faecalis Streptococcus porcinus 08/01/24 15:14 Blood Blood Culture - Preliminary NO GROWTH AFTER 4 DAYS 08/01/24 13:45 Blood Blood Culture - Preliminary NO GROWTH AFTER 4 DAYS 08/01/24 14:17 Foot,Left Gram Stain - Final 08/01/24 14:17 Foot,Left Wound Culture - Preliminary Proteus mirabilis Enterococcus raffinosus Constitutional Constitutional: no acute distress Comments: Sitting up in the bed completing his breakfast and appears comfortable *Routine Respiratory Exam Respiratory: Present decreased breath sounds (Posteriorly) *Routine Cardiovascular Exam Cardiovascular: Present RRR *Routine Abdominal Exam Abdominal: Present soft and normoactive bowel sounds; Absent tenderness or distended *Routine Extremities Exam Extremities: Absent edema or calf tenderness *Routine Neurological Exam Neurological: Present alert and oriented X3 Assessment and Plan *Assessment and plan (1) Osteomyelitis of great toe of left foot: Status: Acute Category: Medical Code(s): M86.9 - Osteomyelitis, unspecified (2) Cellulitis of left foot: Status: Acute Category: Medical Code(s): L03.116 - Cellulitis of left lower limb (3) Diabetic ulcer of right foot: Status: Acute Qualifiers: Diabetes mellitus type: type 2 Diabetic foot ulcer location: other Non-pressure ulcer stage: with fat layer exposed Qualified Code(s): E11.621 - Type 2 diabetes mellitus with foot ulcer; L97.512 - Non-pressure chronic ulcer of other part of right foot with fat layer exposed Category: Medical Code(s): E11.621 - Type 2 diabetes mellitus with foot ulcer; L97.519 - Non-pressure chronic ulcer of other part of right foot with unspecified severity (4) Diabetic ulcer of left foot: Status: Acute Qualifiers: Diabetes mellitus type: type 2 Diabetic foot ulcer location: other Non-pressure ulcer stage: with fat layer exposed Qualified Code(s): E11.621 - Type 2 diabetes mellitus with foot ulcer; L97.522 - Non-pressure chronic ulcer of other part of left foot with fat layer exposed Category: Medical Code(s): E11.621 - Type 2 diabetes mellitus with foot ulcer; L97.529 - Non-pressure chronic ulcer of other part of left foot with unspecified severity (5) Diabetes mellitus with diabetic neuropathy: Status: Acute Qualifiers: Diabetes mellitus roasterman insulin use: without roasterman use Diabetes mellitus type: type 2 Qualified Code(s): E11.40 - Type 2 diabetes mellitus with diabetic neuropathy, unspecified Category: Medical Code(s): E11.40 - Type 2 diabetes mellitus with diabetic neuropathy, unspecified (6) PAD (peripheral artery disease): Status: Acute Category: Medical Code(s): I73.9 - Peripheral vascular disease, unspecified Plan Surgery, 08/01/24: s/p Right hallux and lateral ankle DFU wound debridement x2, Left 5th toe DFU wound debridement, Left foot irrigation and debridement, hallux amputation Intraop Specimens: Path: Right ankle tissue path: Pending Left distal great toe: Pending Left proximal phalanx bone: Pending Micro: Left distal great toe WCx: Proteus vulgaris, Enterococcus faecalis, Streptococcus porcinus Left distal phalanx bone culture: Klebsiella oxytoca, Proteus mirabilis, Enterococcus faecalis Specimens: 08/01/24: Left hallux WCx: Proteus mirabilis, Enterococcus raffinosus 08/01/24: Blood cultures: NG x4 08/06/24: POD #5 Podiatry [employer] TECHNICIAN and I saw patient together. -B/L foot/ankle dressing changed. -Wounds are stable. No bedside debridement today. -Sutures clean dry and intact to left hallux amp site. No new purulence noted. -Betadine soaked gauze, DSD applied. Plan: Discussed plan of care with Dr Grissom. -Stand from Podiatry stand point for d/c to SNF when ready. -Rec SNF placement, pending [place]. -Continue IV abx per Dr Grissom: broad spectrum coverage: Vanco, Zosyn. -Nursing to do daily dressing changes. -Daily dsg: betadine soaked gauze to left hallux amp site, dry sterile dressing (rolando coreas). Other wounds (L 5th toe, R hallux, R lateral ankle): silver (or collagen) to wounds, secure with dry sterile dressing. -PWB in b/l post op shoes, walker. -Appt scheduled in one week with [facility] wound care clinic: 08/13/24. -Appt scheduled in 1-2 weeks with Podiatry: 08/16/24. Patient to be transferred to [facility] today for ongoing care/rehab. Dr. Grissom entry - Saw patient. Will order PICC line placement today. Plan for discharge to [facility] today with IV Vanc and Levaquin.
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
[2024-08-06] MEDS: VANCOMYCIN/WATER FOR INJ (PEG) 1.75 GM/350 ML PIGGYBACK IV (09:53)
[2024-08-06 10:58] LABS: POC Glucose,Bedside 208 (70-110)
[2024-08-06] MEDS: humaLOG 100 UNITS/ML 10ML VIAL (SSI) SUBCUT (11:53)
[2024-08-07 12:34] LABS: POC Glucose,Bedside 222 (70-110)
== END 2024-08-06 15:48 | DRG 464 ==
LOC: ER 14:21 → OR 14:23 → 2ND 16:21
PROVIDERS: Podiatrist; Admitting Provider Family Medicine; Emergency Provider Emergency Medicine; PCP Family Medicine; Visit Provider Family Medicine
PROC: 0JBQ0ZZ Excision of Right Foot Subcutaneous Tissue and Fascia, Open Approach (ICD-10-PCS; principal; 2024-08-01 15:00)
DX: M86.172 Other acute osteomyelitis, left ankle and foot (principal); L03.116 Cellulitis of left lower limb; L97.526 Non-pressure chronic ulcer of other part of left foot with bone involvement without evidence of necrosis; Z16.29 Resistance to other single specified antibiotic; Z16.19 Resistance to other specified beta lactam antibiotics; I11.0 Hypertensive heart disease with heart failure; I50.9 Heart failure, unspecified; E11.42 Type 2 diabetes mellitus with diabetic polyneuropathy; E78.5 Hyperlipidemia, unspecified; D64.9 Anemia, unspecified; M10.9 Gout, unspecified; L97.519 Non-pressure chronic ulcer of other part of right foot with unspecified severity; B95.4 Other streptococcus as the cause of diseases classified elsewhere; B95.2 Enterococcus as the cause of diseases classified elsewhere; E11.69 Type 2 diabetes mellitus with other specified complication; E11.621 Type 2 diabetes mellitus with foot ulcer; B96.4 Proteus (mirabilis) (morganii) as the cause of diseases classified elsewhere; I73.9 Peripheral vascular disease, unspecified; B96.89 Other specified bacterial agents as the cause of diseases classified elsewhere; I25.10 Atherosclerotic heart disease of native coronary artery without angina pectoris; Z83.3 Family history of diabetes mellitus; Z82.49 Family history of ischemic heart disease and other diseases of the circulatory system; Z83.438 Family history of other disorder of lipoprotein metabolism and other lipidemia; Z95.5 Presence of coronary angioplasty implant and graft; Z79.84 Long term (current) use of oral hypoglycemic drugs; Z79.899 Other long term (current) drug therapy; Z79.02 Long term (current) use of antithrombotics/antiplatelets; Z79.82 Long term (current) use of aspirin; Z28.39 Other underimmunization status; Z87.2 Personal history of diseases of the skin and subcutaneous tissue
CPT/HCPCS: 36410; 36415; 36569; 71045; 73630; 80048; 80053; 80202; 82962; 83036; 85025; 85651; 86140; 87040; 87070; 87077; 87186; 87205; 88304; 97110; 97163; 97530; C1751; J0696; J1650; J2543; J3372

== ENCOUNTER 2024-08-13 12:04 | Outpatient (CLI) | payer OTHER, SELFPAY ==
[2024-08-13 13:25] LABS: Vancomycin,Trough 11.2 ug/mL (5.0-10.0)
[2024-08-13 15:05] LABS: Chloride 106 mmol/L (98-107); Potassium 4.2 mmoL/L (3.5-5.1); Sodium 138 mmol/L (136-145)
[2024-08-13 15:08] LABS: Anion Gap 12.2 mEq/L (5-15); Blood Urea Nitrogen 19 mg/dl (9-20); Calcium 9.1 mg/dl (8.4-10.2); Carbon Dioxide 24 mmol/L (22.0-30.0); Estimated Glomerular Filt Rate 86 ml/min (>60); GFR (African American) 104 ML/MIN (>60); Glucose 163 mg/dl (74-100)
== END 2024-08-13 23:59 | disposition home or self-care (01) ==
LOC: LAB.DROPOF 12:06
PROVIDERS: PCP Family Medicine; Visit Provider Family Medicine
DX: M86.9 Osteomyelitis, unspecified (principal)
CPT/HCPCS: 80048; 80202

== ENCOUNTER 2024-08-21 08:51 | Outpatient (CLI) | payer OTHER, SELFPAY ==
[2024-08-21 09:06] LABS: Basophils % 0.5 % (0.1-2.0); Eosinophils # 0.3 Kmm3 (0.0-0.4); Eosinophils % 4.7 % (0.1-12.0); Hematocrit 38.9 % (42.0-52.0); Hemoglobin 12.9 g/dL (14.1-18.0); Lymphocytes # 0.8 K/mm3 (0.7-4.5); Lymphocytes % 14.3 % (10-50); Mean Corpuscular HGB Conc 33.2 g/dL (31.8-35.4); Mean Corpuscular Hemoglobin 30.6 pg (27.0-31.2); Mean Corpuscular Volume 92.2 fl (80-94); Mean Platelet Volume 9.1 fl (7.4-10.4); Monocytes # 0.4 K/mm3 (0.1-1.0); Monocytes % 6.6 % (1.7-9.3); Neutrophils # 4.2 K/mm3 (1.8-7.8); Nucleated Red Blood Cells # 0 10^3/uL; Nucleated Red Blood Cells % 0 %; Platelet Count 186 K/mm3 (142-424); Red Blood Count 4.22 M/mm3 (4.60-6.20); Red Cell Distribution Width 12.8 % (11.5-17.5); Red Cell Distribution Width-SD 43.2 fL; White Blood Count 5.7 K/mm3 (4.8-10.8)
[2024-08-21 09:36] LABS: Erythrocyte Sedimentation Rate 21 mm/hr (0-20)
[2024-08-21 09:52] LABS: Alanine Aminotransferase 21 U/L (12-78); Albumin Level 3.7 g/dl (3.5-5.0); Albumin/Globulin Ratio 1.6 (1.1-1.8); Alkaline Phosphatase 102 U/L (38-126); Anion Gap 14.4 mEq/L (5-15); Aspartate Amino Transferase 22 U/L (17-59); Bilirubin,Total 0.5 mg/dl (0.2-1.3); Blood Urea Nitrogen 30 mg/dl (9-20); Calcium 8.9 mg/dl (8.4-10.2); Carbon Dioxide 22 mmol/L (22.0-30.0); Chloride 101 mmol/L (98-107); Estimated Glomerular Filt Rate 76 ml/min (>60); GFR (African American) 92 ML/MIN (>60); Globulin 2.3 g/dL (1.3-3.2); Glucose 290 mg/dl (74-100); Potassium 4.4 mmoL/L (3.5-5.1); Sodium 133 mmol/L (136-145)
[2024-08-21 09:57] LABS: C-Reactive Protein 2.4 mg/L (0-4)
== END 2024-08-21 23:59 | disposition home or self-care (01) ==
LOC: LAB.DROPOF 08:52
PROVIDERS: PCP Family Medicine; Visit Provider Podiatrist
DX: M86.9 Osteomyelitis, unspecified (principal)
CPT/HCPCS: 80053; 85025; 85651; 86140

== ENCOUNTER 2024-09-17 16:05 | Inpatient (IN) | payer OTHER, SELFPAY ==
[2024-09-17] VITALS (41 sets, daily range): BP systolic 69–109; BP diastolic 45–69; PULSE 93–115; RESP 14–22; TEMP 36.4–36.8; O2SAT 93–100; BMI 27.9; BMI 26.7
--- NOTE | 2024-09-17 16:08 | ED_ITS ---
<Statement entered by Marlene Deleon DO - 09/17/24 23:16> I was consulted by the SHANTAL, and we discussed the complexity of the problems being addressed. I approved the treatment and management plan for this patient's care in the emergency department, thus performing a substantive portion of the medical decision making. I was involved closely in the patient's care and personally performed critical care with review of workup and development of treatment plan. Marlene Deleon DO Discharge Plan Disposition Patient Disposition: Admitted Condition: Critical Clinical Impressions Clinical Impression: Severe sepsis with septic shock, Elevated troponin I level, Hypomagnesemia, Acute nontraumatic kidney injury Discharge ED Provider: Marlene Deleon General Adult HPI <SUDARSHAN Urbina - Last Filed: 09/17/24 21:00> General Chief complaint: Nausea/Vomiting/Diarrhea Stated complaint: vomiting, can't eat Time Seen by Provider: 09/17/24 16:08 History of Present Illness HPI narrative: Patient presents for evaluation of nausea vomiting and inability to tolerate oral intake. Patient reports that his symptoms began last night and progressed throughout the day. Patient appears to have a cognitive delay and is a poor historian. He denies any abdominal pain chest pain shortness of breath fever chills hemoptysis hematochezia melena hematemesis hematuria. He is a type II diabetic and does have a history of reduced EF heart failure and last documented EF was from March 2024 that showed his EF was approximate 45 to 50%. Related Data Home Medications ?Medication ?Instructions ?Recorded ?Confirmed allopurinol 300 mg tablet 300 mg PO DAILY 02/28/24 09/06/24 amlodipine 5 mg tablet 5 mg PO DAILY 02/28/24 09/06/24 aspirin 81 mg tablet,delayed 81 mg PO DAILY 02/28/24 09/06/24 release carvedilol 3.125 mg tablet 3.125 mg PO BID 02/28/24 09/06/24 clopidogrel 75 mg tablet 75 mg PO DAILY 02/28/24 09/06/24 glimepiride 4 mg tablet 2 mg PO DAILY 02/28/24 09/06/24 metformin 500 mg tablet 500 mg PO BID 02/28/24 09/06/24 omeprazole 40 mg capsule,delayed 40 mg PO DAILY 02/28/24 09/06/24 release sacubitril 24 mg-valsartan 26 mg 1 tab PO BID 02/28/24 09/06/24 tablet (Entresto) vericiguat 10 mg tablet (Verquvo) 10 mg PO DAILY 02/28/24 09/06/24 Previous Rx's ?Medication ?Instructions ?Recorded rosuvastatin 40 mg tablet (Crestor) 40 mg PO DAILY #90 tabs 07/23/24 Allergies Allergy/AdvReac Type Severity Reaction Status Date / Time No Known Allergies Allergy Verified 09/06/24 10:35 [facility] <SUDARSHAN Urbina - Last Filed: 09/17/24 21:00> [facility] Disclaimer: The information contained in this section may have been updated after the patient was seen, as this information can be updated by other users. Medical History Frostbite Myocardial injury Atypical chest pain Nausea & vomiting Murmur Abnormal nuclear cardiac imaging test Coronary artery disease Nonhealing skin ulcer Abnormal echocardiogram E. coli UTI Fracture of fifth metatarsal bone of right foot Foot lesion Severe sepsis CHF (congestive heart failure) Abnormal ECG LV dysfunction Ischemic cardiomyopathy Coronary artery disease COVID-19 Gout Hypertension Hyperlipidemia Diabetes mellitus, type 2 Onychomycosis Onychodystrophy Acquired metatarsus varus Abrasion of foot, right Fracture of fourth metatarsal bone of right foot Vaccine counseling Immunization due Blister of foot without infection Surgical History S/P coronary artery stent placement Hx of heart artery stent x5 History of cardiac cath History of tonsillectomy Family History Other Coronary artery disease Diabetes Hyperlipidemia Social History Smoking Status: Never smoker alcohol intake: never current occupational status: employed Travel in the last 8 weeks?: None Have you lived/traveled outside US in past 30 days?: No Contact w/someone who lives/traveled outside US past 30 days?: No Exposure to someone with infectious disease in past 14 days?: No Do you have a fever (greater than 100.4 F or 38 C)?: No Have you tested positive for COVID-19?: No Exposed to someone with COVID-19 in past 14 days?: No Do you have a sore throat?: No Do you have a cough?: No Do you have any weakness?: No Do you have any diarrhea?: No Are you experiencing any unusual bleeding?: No Do you have any muscle aches/pain?: No Do you have any abdominal pain?: No Are you experiencing loss of taste or smell?: No Other Medical History Have you received the Flu Vaccine for this season: No Have you received the Pneumonia Vaccine: No <SUDARSHAN Urbina - Last Filed: 09/17/24 21:00> ROS Obtained: Yes Systems reviewed as appropriate & no additional complaints except as documented Physical Exam <SUDARSHAN Urbina - Last Filed: 09/17/24 21:00> General General appearance: alert Respiratory Respiratory exam: Present normal lung sounds bilaterally Cardiovascular Cardiovascular exam: Present tachycardia Neurological Exam Neurological exam: Present alert and oriented X3 Medical Decision Making <SUDARSHAN Urbina - Last Filed: 09/17/24 21:00> Medical Records Medical records reviewed: Yes I reviewed the patient's medical records. Screening: Per USPSTF and CDC recommendations, given the prevalence of disease in our region, it is our hospital?s policy to screen for HIV and viral Hepatitis for all patients aged 18 and over and those with ongoing risk factors. James Inquiry Pt receiving controlled substance: No Vital Signs: 09/17/24 16:22 09/17/24 16:30 09/17/24 16:54 Temperature 97.6 F Temperature Source Oral Pulse Rate 111 H 110 H Pulse Rate [Right] 110 H Respiratory Rate 18 Blood Pressure 95/58 L 95/58 L Blood Pressure [Right Arm] 95/58 L Blood Pressure Mean Blood Pressure Mean [Right Arm] 70 Blood Pressure Position 02 Sat by Pulse Oximetry 100 100 99 Oxygen Delivery Method Room Air 09/17/24 16:55 09/17/24 16:57 09/17/24 17:00 Temperature Temperature Source Pulse Rate 111 H 109 H 112 H Pulse Rate [Right] Respiratory Rate Blood Pressure 87/51 L 78/50 L 78/52 L Blood Pressure [Right Arm] Blood Pressure Mean Blood Pressure Mean [Right Arm] Blood Pressure Position 02 Sat by Pulse Oximetry 100 100 99 Oxygen Delivery Method Room Air Room Air Room Air 09/17/24 17:03 09/17/24 17:21 09/17/24 17:32 Temperature Temperature Source Pulse Rate 114 H 110 H 105 H Pulse Rate [Right] Respiratory Rate 20 Blood Pressure 88/59 L 69/51 L 106/60 L Blood Pressure [Right Arm] Blood Pressure Mean Blood Pressure Mean [Right Arm] Blood Pressure Position 02 Sat by Pulse Oximetry 99 100 98 Oxygen Delivery Method Room Air Room Air Room Air 09/17/24 17:35 09/17/24 17:51 09/17/24 18:00 Temperature Temperature Source Pulse Rate 110 H 103 H 104 H Pulse Rate [Right] Respiratory Rate 15 19 20 Blood Pressure 100/59 L 92/61 L 93/58 L Blood Pressure [Right Arm] Blood Pressure Mean 70 68 Blood Pressure Mean [Right Arm] Blood Pressure Position 02 Sat by Pulse Oximetry 98 99 94 L Oxygen Delivery Method Room Air 09/17/24 18:24 09/17/24 18:25 09/17/24 18:28 Temperature Temperature Source Pulse Rate 107 H Pulse Rate [Right] Respiratory Rate 16 Blood Pressure 91/58 L 74/45 L Blood Pressure [Right Arm] Blood Pressure Mean 72 54 Blood Pressure Mean [Right Arm] Blood Pressure Position 02 Sat by Pulse Oximetry 98 Oxygen Delivery Method 09/17/24 18:28 09/17/24 18:30 09/17/24 18:30 Temperature Temperature Source Pulse Rate 103 H 104 H Pulse Rate [Right] Respiratory Rate 17 18 Blood Pressure 75/47 L Blood Pressure [Right Arm] Blood Pressure Mean 53 Blood Pressure Mean [Right Arm] Blood Pressure Position 02 Sat by Pulse Oximetry 100 99 Oxygen Delivery Method 09/17/24 18:40 09/17/24 18:40 09/17/24 18:45 Temperature Temperature Source Pulse Rate 97 H 96 H Pulse Rate [Right] Respiratory Rate 20 19 Blood Pressure 89/49 L Blood Pressure [Right Arm] Blood Pressure Mean 56 Blood Pressure Mean [Right Arm] Blood Pressure Position 02 Sat by Pulse Oximetry 99 98 Oxygen Delivery Method 09/17/24 18:48 09/17/24 18:50 09/17/24 18:50 Temperature Temperature Source Pulse Rate 97 H 95 H Pulse Rate [Right] Respiratory Rate 14 18 Blood Pressure 89/49 L 94/60 L Blood Pressure [Right Arm] Blood Pressure Mean 71 Blood Pressure Mean [Right Arm] Blood Pressure Position Sitting 02 Sat by Pulse Oximetry 99 98 Oxygen Delivery Method Room Air 09/17/24 19:00 09/17/24 19:00 09/17/24 19:10 Temperature Temperature Source Pulse Rate 95 H 93 H Pulse Rate [Right] Respiratory Rate 21 21 Blood Pressure 81/49 L 97/58 L Blood Pressure [Right Arm] Blood Pressure Mean 59 71 Blood Pressure Mean [Right Arm] Blood Pressure Position 02 Sat by Pulse Oximetry 98 95 Oxygen Delivery Method 09/17/24 19:20 09/17/24 19:30 09/17/24 19:40 Temperature Temperature Source Pulse Rate 98 H 96 H 98 H Pulse Rate [Right] Respiratory Rate 19 20 Blood Pressure 92/61 L 90/59 L 80/60 L Blood Pressure [Right Arm] Blood Pressure Mean 68 65 Blood Pressure Mean [Right Arm] Blood Pressure Position 02 Sat by Pulse Oximetry 96 93 L Oxygen Delivery Method 09/17/24 19:46 09/17/24 19:50 09/17/24 20:00 Temperature Temperature Source Pulse Rate 95 H Pulse Rate [Right] Respiratory Rate 22 19 20 Blood Pressure 92/60 L 85/50 L 92/63 L Blood Pressure [Right Arm] Blood Pressure Mean 71 61 68 Blood Pressure Mean [Right Arm] Blood Pressure Position 02 Sat by Pulse Oximetry 97 98 98 Oxygen Delivery Method 09/17/24 20:10 09/17/24 20:20 09/17/24 20:30 Temperature Temperature Source Pulse Rate 98 H Pulse Rate [Right] Respiratory Rate 20 20 Blood Pressure 109/69 L 98/69 L 99/63 L Blood Pressure [Right Arm] Blood Pressure Mean 82 74 70 Blood Pressure Mean [Right Arm] Blood Pressure Position 02 Sat by Pulse Oximetry 99 96 Oxygen Delivery Method 09/17/24 20:40 09/17/24 20:47 Temperature 98 F Temperature Source Pulse Rate 99 H 99 H Pulse Rate [Right] Respiratory Rate 18 18 Blood Pressure 86/63 L 86/63 L Blood Pressure [Right Arm] Blood Pressure Mean 69 Blood Pressure Mean [Right Arm] Blood Pressure Position Sitting 02 Sat by Pulse Oximetry 95 Oxygen Delivery Method Room Air Lab Data Lab results reviewed: Yes I reviewed the patient's lab results. Lab Results 09/17/24 16:26: VBG pH 7.30 L, VBG pCO2 42.7, VBG pO2 26.0 L, VBG HCO3 20.5 L, V BG Total CO2 21.8 L, VBG O2 Saturation 42.0 L, VBG Base Excess -5.9 L, VBG Lactic Acid 5.1 H 09/17/24 16:45: WBC 14.7 H, RBC 4.54 L, Hgb 13.4 L, Hct 41.6 L, MCV 91.6, MCH 29.5, MCHC 32.2, RDW 13.1, Plt Count 174, MPV 9.9, Neut % (Auto) 96.2 H, Lymph % (Auto) 0.7 L, Lyman % (Auto) 2.2, Eos % (Auto) 0.3, Baso % (Auto) 0.1, Neut # (Auto) 14.1 H, Lymph # (Auto) 0.1 L, Lyman # (Auto) 0.3, Eos # (Auto) 0.1, Baso # (Auto) 0.0, Total Counted 100, Neutrophils % (Manual) 90 H, Band Neutrophils % 8, Monocytes % (Manual) 2, Platelet Estimate Normal, RBC Morphology Normal, Sodium 137, Potassium 4.5, Chloride 101, Carbon Dioxide 23, Anion Gap 17.5 H, B UN 39 H, Creatinine 2.50 H, Estimated Creat Clear 39, Estimated GFR 26 L, Est GFR ( Amer) 32 L, Glucose 256 H, Calcium 9.5, Magnesium 1.3 L, Total Bilirubin 0.8, AST 45, ALT 34, Alkaline Phosphatase 97, Troponin I 0.13 H, C- Reactive Protein 298.7 H, NT-Pro-B Natriuret Pep 7900 H, Total Protein 6.8, Albumin 4.2, Globulin 2.6, Albumin/Globulin Ratio 1.6, Lipase 20 L, P rocalcitonin 24.5 H, TSH 1.43, Thyroxine (T4) 5.2 L, Acetone Level None detected 09/17/24 17:20: Lactate 3.9 H, Urine Color Yellow, Urine Appearance Clear, Urine pH 6.0, Ur Specific [place] 1.020, Urine Protein 2+ A, Urine Glucose (UA) 3+, Urine Ketones Trace, Urine Blood 2+ A, Urine Nitrate Negative, Urine Bilirubin 1+ A, Urine Urobilinogen 0.2, Ur Leukocyte Esterase Negative, Urine RBC None, Urine WBC Occasional, Ur Squamous Epith Cells None, Urine Bacteria 3+, Fine Granular Casts 3-5 09/17/24 19:33: Chlamy pneumoniae PCR Not detected, Adenovirus (PCR) Not detected, B. pertussis DNA (PCR) Not detected, Coronavirus OC43 (PCR) Not detected, Coronavirus HKU1 (PCR) Not detected, Coronavirus 229E (PCR) Not detected, SARS-CoV-2 (PCR) Not detected, Coronavirus NL63 (PCR) Not detected, Human Metapneumovir PCR Not detected, Influenza A (H1) PCR Not detected, Influ A (H1N1/09) PCR Not detected, Influenza A (H3) PCR Not detected, Influenza Type A (PCR) Not detected, Influenza Type B (PCR) Not detected, M. pneumoniae (PCR) Not detected, Parainfluenza 1 (PCR) Not detected, Parainfluenza 2 (PCR) Not detected, Parainfluenza 3 (PCR) Not detected, Parainfluenza 4 (PCR) Not detected, RSV (PCR) Not detected, Entero/Rhino (PCR) Not detected 09/17/24 16:45 09/17/24 16:45 Orders (Tests/Meds): ED MEDICATIONS Generic Name Dose Route Start Last Admin Trade Name Freq PRN Reason Stop Dose Admin Acetaminophen 650 mg 09/17/24 20:11 Acetaminophen 325mg Tab PO 10/17/24 20:10 Q6HP PRN Fever or Mild Pain (1-3) Hydrocodone Bitart/Acetaminophen 1 tab 09/17/24 20:11 Hydrocodone/Apap 5/325 Mg Tablet PO 10/17/24 20:10 Q6HP PRN Moderate Pain (4-6) Docusate Sodium ml 09/17/24 21:00 Docusate Sodium 10 Ml/Udc Udc PO 10/17/24 20:59 BID KIRA Heparin Sodium (Porcine) 5,000 unit 09/17/24 21:00 Heparin Sodium 5,000 Unit/Ml Vial SUBCUT 10/17/24 20:59 TID KIRA Norepinephrine/Dextrose 8 mg in 250 mls @ 15 mls/hr 09/17/24 17:24 09/17/24 21:51 Levophed 8mg/250ml-D5w Premix IV 10/17/24 17:23 6 mcg/min .[id number] KIRA 11.25 mls/hr Titration Protocol 8 MCG/MIN Sodium Chloride 1,000 mls @ 75 mls/hr 09/17/24 20:15 09/17/24 21:43 Sod Chlor 0.9% 1000ml Bag IV 10/17/24 20:14 75 mls/hr .[id number] KIRA Administration Sodium Chloride 1,000 mls @ 999 mls/hr 09/17/24 20:19 09/17/24 21:43 Sod Chlor 0.9% 1000ml Bag IV 09/17/24 21:19 999 mls/hr .Q1H1M ONE Administration Piperacillin Sod/Tazobactam 50 mls @ 100 mls/hr 09/18/24 03:15 Sod 3.375 gm/ Sodium Chloride IV 09/28/24 03:14 Q8H KIRA Lorazepam 1 mg 09/17/24 20:16 Lorazepam 2mg/Ml Vial IV 10/17/24 20:15 Q4HP PRN Agitation Miscellaneous 1 each 09/17/24 17:30 09/17/24 21:28 Vancomycin Consult Request NOTAPPLIC 10/17/24 17:29 Not Given CONSULT PHARMACY [facility] Miscellaneous 1 each 09/17/24 21:15 09/17/24 21:45 Vancomycin Consult Request NOTAPPLIC 10/17/24 21:14 1 each CONSULT PHARMACY KIRA Administration Ondansetron HCl 4 mg 09/17/24 20:11 Ondansetron 4mg/2ml Vial IV 10/17/24 20:10 Q6HP PRN Nausea Pantoprazole Sodium 40 mg 09/17/24 21:00 09/17/24 21:45 Pantoprazole 40mg Tablet PO 10/17/24 20:59 40 mg HS KIRA Administration Sodium Chloride 10 ml 09/17/24 18:16 Sodium Chloride 0.9% 10ml Syr (Rad Only) IV 10/17/24 18:15 NEEDED PRN Maintain IV Site Sodium Chloride 10 ml 09/17/24 20:11 Sodium Chloride 0.9% 10ml Flush Syringe IV 10/17/24 20:10 NEEDED PRN Maintain IV Site Discontinued Medications Generic Name Dose Route Start Last Admin Trade Name Freq PRN Reason Stop Dose Admin Acetaminophen 1,000 mg 09/17/24 17:09 09/17/24 17:10 Acetaminophen 1,000mg/100ml Vial IV 09/17/24 17:10 1,000 mg ONCE ONE Administration Sodium Chloride 1,000 mls @ 999 mls/hr 09/17/24 16:25 09/17/24 16:49 Sod Chlor 0.9% 1000ml Bag IV 09/17/24 17:25 999 mls/hr .Q1H1M ONE Administration Lactated Ringer's 1,000 mls @ 999 mls/hr 09/17/24 17:23 09/17/24 18:01 Lactated Ringer's 1000 Ml Bag IV 09/17/24 18:23 999 mls/hr .Q1H1M ONE Administration Piperacillin Sod/Tazobactam 50 mls @ 100 mls/hr 09/17/24 17:23 09/17/24 18:01 Sod 3.375 gm/ Sodium Chloride IV 09/17/24 17:52 100 mls/hr ONCE ONE Administration Vancomycin HCl 2,000 mg/ 250 mls @ 125 mls/hr 09/17/24 17:30 09/17/24 17:55 Sodium Chloride IV 09/17/24 19:29 125 mls/hr ONCE ONE Administration Magnesium Sulfate 2 gm in 50 mls @ 50 mls/hr 09/17/24 17:46 09/17/24 18:19 Magnesium Sulfate 2gm/50ml Premix IV 09/17/24 18:45 50 mls/hr ONCE ONE Administration Iopamidol 70 ml 09/17/24 18:16 09/17/24 18:19 Iopamidol-370 (76%);100ml Bottle IV 09/17/24 18:17 70 ml ONCE ONE Administration Ondansetron HCl 4 mg 09/17/24 16:25 09/17/24 16:49 Ondansetron 4mg/2ml Vial IV 09/17/24 16:26 4 mg ONCE ONE Administration Sodium Chloride 50 ml 09/17/24 18:16 09/17/24 18:19 0.9 % Sodium Chloride 50 Ml Vial IV 09/17/24 18:17 50 ml ONCE ONE Administration ORDERS Category Date Time Status CT abdomen pelvis w con Stat Cat Scan 09/17/24 16:[address] angio chest PE protocol Stat Cat Scan 09/17/24 17:01 Completed POCUS Point of Care (ER Only) Stat Exams 09/17/24 17:25 Completed Acetone, Serum (Rapid) Stat Lab 09/17/24 16:45 Completed BNP [NT Pro Brain Natriuretic Pep.] Stat Lab 09/17/24 16:45 Completed CBC w/Auto Diff [Complete Blood Count Auto Diff] Stat Lab 09/17/24 16:45 Completed CMP [Comprehensive Metabolic Panel] Stat Lab 09/17/24 16:45 Completed CRP [C-Reactive Protein] Stat Lab 09/17/24 16:45 Completed Full Resp Panel w/COVID ([facility]) Routine Lab 09/17/24 19:33 Completed Lactic Acid Stat Lab 09/17/24 17:20 Completed Lipase Stat Lab 09/17/24 16:45 Completed Magnesium Stat Lab 09/17/24 16:45 Completed Procalcitonin Stat Lab 09/17/24 16:45 Completed T4 (Thyroxine) Stat Lab 09/17/24 16:45 Completed TSH [Thyroid Stimulating Hormone] Stat Lab 09/17/24 16:45 Completed Trop I [Troponin I] Stat Lab 09/17/24 16:45 Completed Troponin I Q3H Lab 09/17/24 21:38 Completed Troponin I Q3H Lab 09/17/24 23:15 Ordered UA [Urinalysis and Microscopic] Stat Lab 09/17/24 17:20 Completed Blood Culture Stat Micro 09/17/24 17:20 Received Urine Culture Stat Micro 09/17/24 17:20 Received VBG [Venous Blood Gas] Stat RT 09/17/24 16:26 Completed Tissue Perfus/Sepsis Re-Eval Sepsis Re-Evaluation Performed: Yes Date Performed: 09/17/24 Time Performed: 18:00 HEART Score History (anamnesis): Slightly suspicious ECG: Non-specific disturbance Age: 45-65 years Risk factors: 3 or more risk factors Troponin: 1-3x normal limit HEART Score: 5 Medical Decision Narrative: In summary patient is a 63-year-old male who presents to the emergency department for evaluation of nausea vomiting. Patient is hemodynamically unstable with a blood pressure 95/58 heart rate of 111 with sinus tachycardia on the bedside monitor breathing 18 times a minute satting at 100% on room air upon arrival, afebrile initially with a temperature of 97.6. Physical exam remarkable for an unwell appearing 63-year-old gentleman who otherwise is no acute distress. Patient has a strong smell of urine about his person. Breath sounds clear and equal bilaterally to the bases without adventitious sounds, cardiac is S1-S2 rapid but regular rate and rhythm without murmurs gallops rubs or thrills, abdomen soft nontender no rebound or guarding no rigidity normal bowel sounds. [place] Coma Score 15 patient is awake alert and oriented.. Differential diagnosis includes DKA versus sepsis versus PE versus ACS versus gastroenteritis etc. Initial workup will be conducted with hematologic labs CTA PE protocol CT scan abdomen pelvis urinalysis twelve-lead EKG full respiratory swab. Initial interventions include crystalloid bolus of 1 L however given his heart failure I considered a sepsis bolus but deferred until his HECTOR is more clear. I have also ordered Zofran. Initial workup reviewed by me shows his white count is 14.7 hemoglobin and hematocrit are 13.4 and 41.6 respectively neutrophil count is 14.1 VBG shows a pH of 7.3 pCO2 of 42.7 VBG lactic acid is 5.1 chemistries show a gap of 17.5 BUN of 39 creatinine of 2.5 GFR of 26 glucose is 256 lactate was 3.9 and the serum magnesium was 1.3 which was repleted IV initial troponin was 0.13 CRP was 298.7 NT proBNP was 7900 lipase was 20 procalcitonin was 24.5 urinalysis showed 2+ of protein 3+ of glucose 2+ blood nitrite negative leukocyte Estrace negative microscopic exam showed no red blood cells occasional white cells no squamous epithelial cells and 3+ bacteria acetone was negative respiratory panel was negative. My informal interpretation of his CT scan of the chest abdomen pelvis did not reveal any evidence of thrombus or acute intrathoracic problem or acute intra-abdominal problem prior to radiology read.. Upon repeat evaluation patient did not respond to fluid bolus thus and lieu of sepsis bolus patient was started on Levophed and after blood cultures obtained started on empiric Vanco and Zosyn. Given this I had interact discussion with hospital medicine regarding patient presentation HECTOR and management and he will be admitted for further evaluation and care to the ICU. <Marlene Deleon, DO - Last Filed: 09/17/24 23:16> Vital Signs: 09/17/24 16:22 09/17/24 16:30 09/17/24 16:54 Temperature 97.6 F Temperature Source Oral Pulse Rate 111 H 110 H Pulse Rate [Right] 110 H Respiratory Rate 18 Blood Pressure 95/58 L 95/58 L Blood Pressure [Right Arm] 95/58 L Blood Pressure Mean Blood Pressure Mean [Right Arm] 70 Blood Pressure Position 02 Sat by Pulse Oximetry 100 100 99 Oxygen Delivery Method Room Air 09/17/24 16:55 09/17/24 16:57 09/17/24 17:00 Temperature Temperature Source Pulse Rate 111 H 109 H 112 H Pulse Rate [Right] Respiratory Rate Blood Pressure 87/51 L 78/50 L 78/52 L Blood Pressure [Right Arm] Blood Pressure Mean Blood Pressure Mean [Right Arm] Blood Pressure Position 02 Sat by Pulse Oximetry 100 100 99 Oxygen Delivery Method Room Air Room Air Room Air 09/17/24 17:03 09/17/24 17:21 09/17/24 17:32 Temperature Temperature Source Pulse Rate 114 H 110 H 105 H Pulse Rate [Right] Respiratory Rate 20 Blood Pressure 88/59 L 69/51 L 106/60 L Blood Pressure [Right Arm] Blood Pressure Mean Blood Pressure Mean [Right Arm] Blood Pressure Position 02 Sat by Pulse Oximetry 99 100 98 Oxygen Delivery Method Room Air Room Air Room Air 09/17/24 17:35 09/17/24 17:51 09/17/24 18:00 Temperature Temperature Source Pulse Rate 110 H 103 H 104 H Pulse Rate [Right] Respiratory Rate 15 19 20 Blood Pressure 100/59 L 92/61 L 93/58 L Blood Pressure [Right Arm] Blood Pressure Mean 70 68 Blood Pressure Mean [Right Arm] Blood Pressure Position 02 Sat by Pulse Oximetry 98 99 94 L Oxygen Delivery Method Room Air 09/17/24 18:24 09/17/24 18:25 09/17/24 18:28 Temperature Temperature Source Pulse Rate 107 H Pulse Rate [Right] Respiratory Rate 16 Blood Pressure 91/58 L 74/45 L Blood Pressure [Right Arm] Blood Pressure Mean 72 54 Blood Pressure Mean [Right Arm] Blood Pressure Position 02 Sat by Pulse Oximetry 98 Oxygen Delivery Method 09/17/24 18:28 09/17/24 18:30 09/17/24 18:30 Temperature Temperature Source Pulse Rate 103 H 104 H Pulse Rate [Right] Respiratory Rate 17 18 Blood Pressure 75/47 L Blood Pressure [Right Arm] Blood Pressure Mean 53 Blood Pressure Mean [Right Arm] Blood Pressure Position 02 Sat by Pulse Oximetry 100 99 Oxygen Delivery Method 09/17/24 18:40 09/17/24 18:40 09/17/24 18:45 Temperature Temperature Source Pulse Rate 97 H 96 H Pulse Rate [Right] Respiratory Rate 20 19 Blood Pressure 89/49 L Blood Pressure [Right Arm] Blood Pressure Mean 56 Blood Pressure Mean [Right Arm] Blood Pressure Position 02 Sat by Pulse Oximetry 99 98 Oxygen Delivery Method 09/17/24 18:48 09/17/24 18:50 09/17/24 18:50 Temperature Temperature Source Pulse Rate 97 H 95 H Pulse Rate [Right] Respiratory Rate 14 18 Blood Pressure 89/49 L 94/60 L Blood Pressure [Right Arm] Blood Pressure Mean 71 Blood Pressure Mean [Right Arm] Blood Pressure Position Sitting 02 Sat by Pulse Oximetry 99 98 Oxygen Delivery Method Room Air 09/17/24 19:00 09/17/24 19:00 09/17/24 19:10 Temperature Temperature Source Pulse Rate 95 H 93 H Pulse Rate [Right] Respiratory Rate 21 21 Blood Pressure 81/49 L 97/58 L Blood Pressure [Right Arm] Blood Pressure Mean 59 71 Blood Pressure Mean [Right Arm] Blood Pressure Position 02 Sat by Pulse Oximetry 98 95 Oxygen Delivery Method 09/17/24 19:20 09/17/24 19:30 09/17/24 19:40 Temperature Temperature Source Pulse Rate 98 H 96 H 98 H Pulse Rate [Right] Respiratory Rate 19 20 Blood Pressure 92/61 L 90/59 L 80/60 L Blood Pressure [Right Arm] Blood Pressure Mean 68 65 Blood Pressure Mean [Right Arm] Blood Pressure Position 02 Sat by Pulse Oximetry 96 93 L Oxygen Delivery Method 09/17/24 19:46 09/17/24 19:50 09/17/24 20:00 Temperature Temperature Source Pulse Rate 95 H Pulse Rate [Right] Respiratory Rate 22 19 20 Blood Pressure 92/60 L 85/50 L 92/63 L Blood Pressure [Right Arm] Blood Pressure Mean 71 61 68 Blood Pressure Mean [Right Arm] Blood Pressure Position 02 Sat by Pulse Oximetry 97 98 98 Oxygen Delivery Method 09/17/24 20:10 09/17/24 20:20 09/17/24 20:30 Temperature Temperature Source Pulse Rate 98 H Pulse Rate [Right] Respiratory Rate 20 20 Blood Pressure 109/69 L 98/69 L 99/63 L Blood Pressure [Right Arm] Blood Pressure Mean 82 74 70 Blood Pressure Mean [Right Arm] Blood Pressure Position 02 Sat by Pulse Oximetry 99 96 Oxygen Delivery Method 09/17/24 20:40 09/17/24 20:47 Temperature 98 F Temperature Source Pulse Rate 99 H 99 H Pulse Rate [Right] Respiratory Rate 18 18 Blood Pressure 86/63 L 86/63 L Blood Pressure [Right Arm] Blood Pressure Mean 69 Blood Pressure Mean [Right Arm] Blood Pressure Position Sitting 02 Sat by Pulse Oximetry 95 Oxygen Delivery Method Room Air Lab Data Lab Results 09/17/24 16:26: VBG pH 7.30 L, VBG pCO2 42.7, VBG pO2 26.0 L, VBG HCO3 20.5 L, V BG Total CO2 21.8 L, VBG O2 Saturation 42.0 L, VBG Base Excess -5.9 L, VBG Lactic Acid 5.1 H 09/17/24 16:45: WBC 14.7 H, RBC 4.54 L, Hgb 13.4 L, Hct 41.6 L, MCV 91.6, MCH 29.5, MCHC 32.2, RDW 13.1, Plt Count 174, MPV 9.9, Neut % (Auto) 96.2 H, Lymph % (Auto) 0.7 L, Lyman % (Auto) 2.2, Eos % (Auto) 0.3, Baso % (Auto) 0.1, Neut # (Auto) 14.1 H, Lymph # (Auto) 0.1 L, Lyman # (Auto) 0.3, Eos # (Auto) 0.1, Baso # (Auto) 0.0, Total Counted 100, Neutrophils % (Manual) 90 H, Band Neutrophils % 8, Monocytes % (Manual) 2, Platelet Estimate Normal, RBC Morphology Normal, Sodium 137, Potassium 4.5, Chloride 101, Carbon Dioxide 23, Anion Gap 17.5 H, B UN 39 H, Creatinine 2.50 H, Estimated Creat Clear 39, Estimated GFR 26 L, Est GFR ( Amer) 32 L, Glucose 256 H, Calcium 9.5, Magnesium 1.3 L, Total Bilirubin 0.8, AST 45, ALT 34, Alkaline Phosphatase 97, Troponin I 0.13 H, C- Reactive Protein 298.7 H, NT-Pro-B Natriuret Pep 7900 H, Total Protein 6.8, Albumin 4.2, Globulin 2.6, Albumin/Globulin Ratio 1.6, Lipase 20 L, P rocalcitonin 24.5 H, TSH 1.43, Thyroxine (T4) 5.2 L, Acetone Level None detected 09/17/24 17:20: Lactate 3.9 H, Urine Color Yellow, Urine Appearance Clear, Urine pH 6.0, Ur Specific [place] 1.020, Urine Protein 2+ A, Urine Glucose (UA) 3+, Urine Ketones Trace, Urine Blood 2+ A, Urine Nitrate Negative, Urine Bilirubin 1+ A, Urine Urobilinogen 0.2, Ur Leukocyte Esterase Negative, Urine RBC None, Urine WBC Occasional, Ur Squamous Epith Cells None, Urine Bacteria 3+, Fine Granular Casts 3-5 09/17/24 19:33: Chlamy pneumoniae PCR Not detected, Adenovirus (PCR) Not detected, B. pertussis DNA (PCR) Not detected, Coronavirus OC43 (PCR) Not detected, Coronavirus HKU1 (PCR) Not detected, Coronavirus 229E (PCR) Not detected, SARS-CoV-2 (PCR) Not detected, Coronavirus NL63 (PCR) Not detected, Human Metapneumovir PCR Not detected, Influenza A (H1) PCR Not detected, Influ A (H1N1/09) PCR Not detected, Influenza A (H3) PCR Not detected, Influenza Type A (PCR) Not detected, Influenza Type B (PCR) Not detected, M. pneumoniae (PCR) Not detected, Parainfluenza 1 (PCR) Not detected, Parainfluenza 2 (PCR) Not detected, Parainfluenza 3 (PCR) Not detected, Parainfluenza 4 (PCR) Not detected, RSV (PCR) Not detected, Entero/Rhino (PCR) Not detected Orders (Tests/Meds): ED MEDICATIONS Generic Name Dose Route Start Last Admin Trade Name Freq PRN Reason Stop Dose Admin Acetaminophen 650 mg 09/17/24 20:11 Acetaminophen 325mg Tab PO 10/17/24 20:10 Q6HP PRN Fever or Mild Pain (1-3) Hydrocodone Bitart/Acetaminophen 1 tab 09/17/24 20:11 Hydrocodone/Apap 5/325 Mg Tablet PO 10/17/24 20:10 Q6HP PRN Moderate Pain (4-6) Docusate Sodium ml 09/17/24 21:00 Docusate Sodium 10 Ml/Udc Udc PO 10/17/24 20:59 BID KIRA Heparin Sodium (Porcine) 5,000 unit 09/17/24 21:00 Heparin Sodium 5,000 Unit/Ml Vial SUBCUT 10/17/24 20:59 TID KIRA Norepinephrine/Dextrose 8 mg in 250 mls @ 15 mls/hr 09/17/24 17:24 09/17/24 21:51 Levophed 8mg/250ml-D5w Premix IV 10/17/24 17:23 6 mcg/min .[id number] KIRA 11.25 mls/hr Titration Protocol 8 MCG/MIN Sodium Chloride 1,000 mls @ 75 mls/hr 09/17/24 20:15 09/17/24 21:43 Sod Chlor 0.9% 1000ml Bag IV 10/17/24 20:14 75 mls/hr .[id number] KIRA Administration Sodium Chloride 1,000 mls @ 999 mls/hr 09/17/24 20:19 09/17/24 21:43 Sod Chlor 0.9% 1000ml Bag IV 09/17/24 21:19 999 mls/hr .Q1H1M ONE Administration Piperacillin Sod/Tazobactam 50 mls @ 100 mls/hr 09/18/24 03:15 Sod 3.375 gm/ Sodium Chloride IV 09/28/24 03:14 Q8H KIRA Lorazepam 1 mg 09/17/24 20:16 Lorazepam 2mg/Ml Vial IV 10/17/24 20:15 Q4HP PRN Agitation Miscellaneous 1 each 09/17/24 17:30 09/17/24 21:28 Vancomycin Consult Request NOTAPPLIC 10/17/24 17:29 Not Given CONSULT PHARMACY [facility] Miscellaneous 1 each 09/17/24 21:15 09/17/24 21:45 Vancomycin Consult Request NOTAPPLIC 10/17/24 21:14 1 each CONSULT PHARMACY KIRA Administration Ondansetron HCl 4 mg 09/17/24 20:11 Ondansetron 4mg/2ml Vial IV 10/17/24 20:10 Q6HP PRN Nausea Pantoprazole Sodium 40 mg 09/17/24 21:00 09/17/24 21:45 Pantoprazole 40mg Tablet PO 10/17/24 20:59 40 mg HS KIRA Administration Sodium Chloride 10 ml 09/17/24 18:16 Sodium Chloride 0.9% 10ml Syr (Rad Only) IV 10/17/24 18:15 NEEDED PRN Maintain IV Site Sodium Chloride 10 ml 09/17/24 20:11 Sodium Chloride 0.9% 10ml Flush Syringe IV 10/17/24 20:10 NEEDED PRN Maintain IV Site Discontinued Medications Generic Name Dose Route Start Last Admin Trade Name Rafia PRN Reason Stop Dose Admin Acetaminophen 1,000 mg 09/17/24 17:09 09/17/24 17:10 Acetaminophen 1,000mg/100ml Vial IV 09/17/24 17:10 1,000 mg ONCE ONE Administration Sodium Chloride 1,000 mls @ 999 mls/hr 09/17/24 16:25 09/17/24 16:49 Sod Chlor 0.9% 1000ml Bag IV 09/17/24 17:25 999 mls/hr .Q1H1M ONE Administration Lactated Ringer's 1,000 mls @ 999 mls/hr 09/17/24 17:23 09/17/24 18:01 Lactated Ringer's 1000 Ml Bag IV 09/17/24 18:23 999 mls/hr .Q1H1M ONE Administration Piperacillin Sod/Tazobactam 50 mls @ 100 mls/hr 09/17/24 17:23 09/17/24 18:01 Sod 3.375 gm/ Sodium Chloride IV 09/17/24 17:52 100 mls/hr ONCE ONE Administration Vancomycin HCl 2,000 mg/ 250 mls @ 125 mls/hr 09/17/24 17:30 09/17/24 17:55 Sodium Chloride IV 09/17/24 19:29 125 mls/hr ONCE ONE Administration Magnesium Sulfate 2 gm in 50 mls @ 50 mls/hr 09/17/24 17:46 09/17/24 18:19 Magnesium Sulfate 2gm/50ml Premix IV 09/17/24 18:45 50 mls/hr ONCE ONE Administration Iopamidol 70 ml 09/17/24 18:16 09/17/24 18:19 Iopamidol-370 (76%);100ml Bottle IV 09/17/24 18:17 70 ml ONCE ONE Administration Ondansetron HCl 4 mg 09/17/24 16:25 09/17/24 16:49 Ondansetron 4mg/2ml Vial IV 09/17/24 16:26 4 mg ONCE ONE Administration Sodium Chloride 50 ml 09/17/24 18:16 09/17/24 18:19 0.9 % Sodium Chloride 50 Ml Vial IV 09/17/24 18:17 50 ml ONCE ONE Administration ORDERS Category Date Time Status CT abdomen pelvis w con Stat Cat Scan 09/17/24 16:[address] angio chest PE protocol Stat Cat Scan 09/17/24 17:01 Completed POCUS Point of Care (ER Only) Stat Exams 09/17/24 17:25 Completed Acetone, Serum (Rapid) Stat Lab 09/17/24 16:45 Completed BNP [NT Pro Brain Natriuretic Pep.] Stat Lab 09/17/24 16:45 Completed CBC w/Auto Diff [Complete Blood Count Auto Diff] Stat Lab 09/17/24 16:45 Completed CMP [Comprehensive Metabolic Panel] Stat Lab 09/17/24 16:45 Completed CRP [C-Reactive Protein] Stat Lab 09/17/24 16:45 Completed Full Resp Panel w/COVID ([facility]) Routine Lab 09/17/24 19:33 Completed Lactic Acid Stat Lab 09/17/24 17:20 Completed Lipase Stat Lab 09/17/24 16:45 Completed Magnesium Stat Lab 09/17/24 16:45 Completed Procalcitonin Stat Lab 09/17/24 16:45 Completed T4 (Thyroxine) Stat Lab 09/17/24 16:45 Completed TSH [Thyroid Stimulating Hormone] Stat Lab 09/17/24 16:45 Completed Trop I [Troponin I] Stat Lab 09/17/24 16:45 Completed Troponin I Q3H Lab 09/17/24 21:38 Completed Troponin I Q3H Lab 09/17/24 23:15 Ordered UA [Urinalysis and Microscopic] Stat Lab 09/17/24 17:20 Completed Blood Culture Stat Micro 09/17/24 17:20 Received Urine Culture Stat Micro 09/17/24 17:20 Received VBG [Venous Blood Gas] Stat RT 09/17/24 16:26 Completed ECG Data Tracing #1: I reviewed this ECG and interpreted as documented below: Sinus tachycardia with a ventricular rate of [address] changes concerning for STEMI. Right bundle branch block and left anterior fascicular block ECG initial impression date: 09/17/24 ECG initial impression time: 17:05 HEART Score HEART Score: 5 Procedures <Marlene Deleon, DO - Last Filed: 09/17/24 23:16> Limited Ultrasound Findings:: Limited cardiac ultrasound Indication: Undifferentiated shock Identified cardiac views: [-Cardiac parasternal long axis] [-Cardiac parasternal short axis] Findings: Cardiac activity present, gross wall motion normal from what I can tell within the limitations of the study. No obvious pericardial effusion. Impression: - From above. Study was technically limited secondary to poor windows Images were saved to permanent archive The study was technically adequate CPT: 05333 This study was performed by me, and I personally interpreted all images/videos. Based on my clinical judgement, these images were adequate and did not necessitate further imaging. Miscellaneous Procedure Procedure Performed: PROCEDURE NOTE: IV Placement under Ultrasound Guidance Performed by: Marlene Deleon DO Indication: IV access required. Multiple attempts at peripheral IV placement were made by the nursing staff without success Procedure: The area was prepped in the usual fashion. The left cephalic vein was cannulated with a 20 gauge angiocath with use of dynamic ultrasound to identify the vein. The patient tolerated the procedure well. Complications: None Critical Care <SUDARSHAN Urbina - Last Filed: 09/17/24 21:00> Critical Care Time Critical Care Time: Yes Attestation: On 09/17/24, the high probability of a clinically significant, sudden or life threatening deterioration of the following system(s) required my full and direct attention, intervention and personal management. The time I documented below is in addition to time spent performing reported procedures but includes the following listed in this critical care notation. Total Time Total Critical Care Time: 70
--- NOTE | 2024-09-17 16:25 | CT_ITS ---
PROCEDURE INFORMATION: Exam: CT Abdomen And Pelvis With Contrast Exam date and time: 09/17/2024 5:26 PM Age: 63 years old Clinical indication: Nausea and vomiting and other: Diarrhea; Additional info: Nausea vomiting diarrhea TECHNIQUE: Imaging protocol: Computed tomography of the abdomen and pelvis with contrast. 3D rendering (Not supervised by radiologist): MIP and/or 3D reconstructed images were created by the technologist. Radiation optimization: All CT scans at this facility use at least one of these dose optimization techniques: automated exposure control; mA and/or kV adjustment per patient size (includes targeted exams where dose is matched to clinical indication); or iterative reconstruction. Contrast material: ISOVUE; Contrast volume: 70 ml; Contrast route: IV; COMPARISON: CT ABDOMEN PELVIS WO CON 10/10/2022 5:53 PM FINDINGS: Liver: Normal. No mass. Gallbladder and biliary ducts: Normal. No calcified stones. No ductal dilation. Pancreas: Normal. No ductal dilation. Spleen: Normal. No splenomegaly. Adrenal glands: Normal. No mass. Kidneys and ureters: 2 cm exophytic right renal cortical cyst has decreased in size from previous. Small simple appearing cortical cysts noted in the left kidney as well. No hydronephrosis. Stomach and bowel: Unremarkable. No obstruction. No mucosal thickening. Appendix: The appendix is visualized and appears normal. Intraperitoneal space: Unremarkable. No free air. No significant fluid collection. Vasculature: Moderate atherosclerotic calcification throughout the aorta and iliac arteries. No aneurysm or dissection. Lymph nodes: Mild bilateral inguinal and diffuse periaortic lymphadenopathy appears stable. Urinary bladder: Henriquez catheter is present in the urinary bladder. Bladder is nondistended but appears unremarkable. Reproductive: Unremarkable as visualized. Bones/joints: Moderate degenerative changes throughout the lower spine. No vertebral body compression. No acute fracture. Soft tissues: Small fat containing umbilical hernia. IMPRESSION: No acute abnormality. Chronic findings as noted. COMMENTS: Consistent with the [employer]'s Incidental Findings Committee white paper (J Am Katy Radiol 2018): Any incidental renal lesion less than 1 cm or classified as too small to characterize, or any incidental cystic renal lesion characterized as simple-appearing, is likely benign. No follow-up imaging is recommended for these lesions per consensus recommendations based on imaging criteria.
[2024-09-17] MEDS: 0.9 % SODIUM CHLORIDE 1000ML 1,000 ML 999 ML IV ×2 (16:49→21:43)
[2024-09-17] MEDS: ONDANSETRON 4MG/2ML VIAL 4 MG IV (16:49)
[2024-09-17 16:58] LABS: VBG Base Excess -5.9 mmol/L (-2.4-2.3); VBG HCO3 20.5 mmol/L (23-30); VBG PCO2 42.7 mmol/L (35-51); VBG Total CO2 21.8 mmol/L (23-27)
[2024-09-17 16:58] LABS: Basophils % 0.1 % (0.1-2.0); Eosinophils # 0.1 Kmm3 (0.0-0.4); Eosinophils % 0.3 % (0.1-12.0); Hematocrit 41.6 % (42.0-52.0); Hemoglobin 13.4 g/dL (14.1-18.0); Immature Granulocytes # 0.08 10^3uL; Immature Granulocytes % 0.5 %; Lymphocytes # 0.1 K/mm3 (0.7-4.5); Lymphocytes % 0.7 % (10-50); Mean Corpuscular HGB Conc 32.2 g/dL (31.8-35.4); Mean Corpuscular Hemoglobin 29.5 pg (27.0-31.2); Mean Corpuscular Volume 91.6 fl (80-94); Mean Platelet Volume 9.9 fl (7.4-10.4); Monocytes # 0.3 K/mm3 (0.1-1.0); Monocytes % 2.2 % (1.7-9.3); Neutrophils # 14.1 K/mm3 (1.8-7.8); Neutrophils % 96.2 % (37.0-80.0); Nucleated Red Blood Cells # 0 10^3/uL; Nucleated Red Blood Cells % 0 %; Platelet Count 174 K/mm3 (142-424); Red Blood Count 4.54 M/mm3 (4.60-6.20); Red Cell Distribution Width 13.1 % (11.5-17.5); Red Cell Distribution Width-SD 43.9 fL; White Blood Count 14.7 K/mm3 (4.8-10.8)
--- NOTE | 2024-09-17 17:01 | CT_ITS ---
PROCEDURE INFORMATION: Exam: CTA Chest With Contrast Exam date and time: 09/17/2024 5:26 PM Age: 63 years old Clinical indication: Other: Shock; Additional info: Shock, undifferentiated TECHNIQUE: Imaging protocol: Computed tomographic angiography of the chest with contrast. Exam focused on the arteries. 3D rendering (Not supervised by radiologist): MIP and/or 3D reconstructed images were created by the technologist. Radiation optimization: All CT scans at this facility use at least one of these dose optimization techniques: automated exposure control; mA and/or kV adjustment per patient size (includes targeted exams where dose is matched to clinical indication); or iterative reconstruction. Contrast material: ISOVUE 370; Contrast volume: 80 ml; Contrast route: INTRAVENOUS (IV); COMPARISON: CR XR CHEST PORTABLE PICC PLAC 08/06/2024 11:07 AM FINDINGS: Pulmonary arteries: Normal. No pulmonary emboli. Aorta: Unremarkable. No aortic aneurysm. No aortic dissection. Lungs: Small calcified granuloma in the right lung base. Lungs are otherwise clear. Pleural spaces: Unremarkable. No pneumothorax. No pleural effusion. Heart: Unremarkable. No cardiomegaly. No pericardial effusion. Lymph nodes: Unremarkable. No enlarged lymph nodes. Bones/joints: Moderate degenerative changes throughout the thoracic spine. No vertebral body compression. No acute fracture. Soft tissues: Unremarkable. IMPRESSION: No acute abnormality. Incidental chronic findings as noted.
[2024-09-17 17:04] LABS: MANUAL DIFFERENTIAL MANUAL DIFFERENTIAL (MANUAL DIFF)
[2024-09-17 17:04] LABS: Lactate Venous 5.1 mmol/L (0.4-2.0)
--- NOTE | 2024-09-17 17:04 | ECG_ITS ---
APPROVED REPORT Exam: Resting ECG HR:113 bpm ECG Measurements Heart Rate 113 AXES QRSd 137 QRS -72 QT 293 T 55 QTc 360 Conclusion Sinus tachycardia No acute STEMI RBBB, left anterior fascicular block Electronically signed by : EVAN MENDES, 09/18/2024 20:00:59
[2024-09-17 17:06] LABS: Albumin Level 4.2 g/dl (3.5-5.0); Chloride 101 mmol/L (98-107)
--- NOTE | 2024-09-17 17:06 | PC.NURSE ---
FSBS was 187.
[2024-09-17 17:07] LABS: Potassium 4.5 mmoL/L (3.5-5.1); Sodium 137 mmol/L (136-145)
[2024-09-17 17:09] LABS: Blood Urea Nitrogen 39 mg/dl (9-20); Creatinine Clearance Estimated 39 mL/min (50-200); Estimated Glomerular Filt Rate 26 ml/min (>60); GFR (African American) 32 ML/MIN (>60)
[2024-09-17 17:10] LABS: Alanine Aminotransferase 34 U/L (12-78); Albumin/Globulin Ratio 1.6 (1.1-1.8); Alkaline Phosphatase 97 U/L (38-126); Anion Gap 17.5 mEq/L (5-15); Aspartate Amino Transferase 45 U/L (17-59); Bilirubin,Total 0.8 mg/dl (0.2-1.3); Calcium 9.5 mg/dl (8.4-10.2); Carbon Dioxide 23 mmol/L (22.0-30.0); Globulin 2.6 g/dL (1.3-3.2); Glucose 256 mg/dl (74-100); Lipase 20 U/L (23-300); Magnesium 1.3 mg/dl (1.6-2.3); Total Protein,Serum 6.8 g/dl (6.3-8.2)
[2024-09-17] MEDS: ACETAMINOPHEN 1,000MG/100ML VIAL 1000 MG IV (17:10)
--- NOTE | 2024-09-17 17:15 | PC.NURSE ---
Pt moved from room 11 and his vitals were as follows: 16:55 87/51 HR 107 o2 sat was 100% RA and at 17:03 Bp was 88/59 HR 113 o2 sat of 100%
[2024-09-17 17:24] LABS: Microscopic, Urine URINE MICROSCOPIC (MICROSCOPIC)
--- NOTE | 2024-09-17 17:24 | [facility].ITSTN ---
GFR completion/results were overrode for the use of contrast media by the Physician on a risk vs. benefit situation with this patient.
[2024-09-17 17:27] LABS: Appearance,Urine CLEAR (Clear); Blood, Urine 2+ (Negative); Color,Urine YELLOW (Yellow); Glucose,Urine (UA) 3+ (Negative); Ketones,Urine TRACE (Negative); Leukocyte Esterase,Urine Negative (Negative); Nitrate,Urine Negative (Negative); Protein,Urine 2+ (Negative); Urobilinogen,Urine 0.2 EU/dl (0.2)
[2024-09-17 17:27] LABS: Acetone, Serum (Rapid) None Detected (None Detect)
[2024-09-17 17:29] LABS: C-Reactive Protein 298.7 mg/L (0-4)
[2024-09-17 17:37] LABS: Bilirubin,Urine 1+ (Negative)
[2024-09-17 17:42] LABS: Procalcitonin 24.5 ng/mL (0.0-2.0)
[2024-09-17 17:51] LABS: NT Pro Brain Natriuretic Pep. 7900 pg/mL (0-125); Troponin I 0.13 ng/ml (0.00-0.034)
[2024-09-17] MEDS: VANCOMYCIN HCL 2,000 MG in 0.9 % SODIUM CHLORIDE 250 ML 125 MG IV (17:55)
[2024-09-17 17:56] LABS: T4 (Thyroxine) 5.2 ug/dl (5.53-11.0)
[2024-09-17] MEDS: PIPERACILLIN/TAZO 3.375 GM in 0.9 % SODIUM CHLORIDE 50 ML IV (18:01)
[2024-09-17] MEDS: LACTATED RINGERS 1000ML 1,000 ML 999 ML IV (18:01)
[2024-09-17 18:05] LABS: WBC,Urine Occasional #/hpf (0-3)
[2024-09-17 18:06] LABS: Bacteria,Urine 3+ /lpf
[2024-09-17 18:09] LABS: Lactic Acid 3.9 mmol/L (0.7-2.1)
[2024-09-17 18:09] LABS: Thyroid Stimulating Hormone 1.43 uIU/mL (0.465-4.68)
[2024-09-17] MEDS: IOPAMIDOL-370 (76%);100ML BOTTLE 70 ML IV (18:19)
[2024-09-17] MEDS: MAGNESIUM SULFATE IN WATER 2 GM/50 ML PIGGYBACK IV (18:19)
[2024-09-17] MEDS: 0.9 % SODIUM CHLORIDE 50 ML VIAL IV (18:19)
[2024-09-17] MEDS: NOREPINEPHRINE BITARTRATE/D5W 8 MG/250 ML PLAST..BAG 15 MG IV (18:34)
[2024-09-17 19:06] LABS: Total Cells Counted 100
[2024-09-17 19:07] LABS: Band Neutrophils % 8 (0-8); Monocytes % 2 % (2-9); Neutrophils % 90 % (42-76); Platelet Estimate Normal; RBC Morphology Normal
[2024-09-17 19:34] LABS: Adenovirus,PCR Not Detected (NotDetected); Bordetella Pertussis Not Detected (NotDetected); Chlamydophila Pneumoniae, PCR Not Detected (NotDetected); Coronavirus 19, PCR Not Detected (NotDetected); Coronavirus 229E Not Detected (NotDetected); Coronavirus NL63 Not Detected (NotDetected); Coronavirus OC43 Not Detected (NotDetected); Coronovirus HKU1,PCR Not Detected (NotDetected); Human Metapneumovirus Not Detected (NotDetected); Influenza A, PCR Not Detected (NotDetected); Influenza AH1, 2009 Not Detected (NotDetected); Influenza AH1, PCR Not Detected (NotDetected); Influenza AH3,PCR Not Detected (NotDetected); Influenza B, PCR Not Detected (NotDetected); Mycoplasma Pneumoniae, PCR Not Detected (NotDetected); Parainfluenza 1, PCR Not Detected (NotDetected); Parainfluenza 2, PCR Not Detected (NotDetected); Parainfluenza 3, PCR Not Detected (NotDetected); Parainfluenza 4, PCR Not Detected (NotDetected); Respiratory Syncytial Virus Not Detected (NotDetected); Rhinovirus/Enterovirus Not Detected (NotDetected)
--- NOTE | 2024-09-17 19:44 | PC.NURSE ---
accepted per hospitalist. house aware
--- NOTE | 2024-09-17 19:49 | PC.NURSE ---
pt readjusted in bed, resting with eyes closed.
--- NOTE | 2024-09-17 19:54 | PC.NURSE ---
admitting provider at the bedside at this time.
--- NOTE | 2024-09-17 20:20 | EXP.HP ---
History of Present Illness *Admission Date: 09/17/24 *Reason for visit:: Vomiting *History of present illness: 63-year-old presents with multiple days of poor p.o. intake. General malaise. Nausea, vomiting. Patient is a poor historian and information largely obtained through evaluation and record review. Currently has no other complaints, denies any shortness of breath, pain anywhere including chest pain, no orthopnea, no swelling. Denies any feet pain, particularly on his right foot where there is a lesion he does not have pain. Noted to be hypotensive, given 1 L bolus of normal saline. Lactate was 4 with evidence of NSTEMI and CRISTEL. Given prior extensive cardiovascular history including coronary revascularization, peripheral artery disease revascularization and LV dysfunction as of an echo 1 year ago, the ER was hesitant to give additional fluids to avoid acute decompensated heart failure. Patient was subsequently started on Levophed. EKG NSR with frequent PAC, right bundle branch block. Bedside echo performed by myself demonstrated gross findings of: LVEF 45%, mild LVH, global hypokinesis. LVOT VTI 30, LVOT diameter 1.9, stroke-volume 85mL, cardiac output 8.5 L/min. RV function grossly normal. No significant valvular disease. RA pressure 0 to 3 mmHg. I independently took the history and consulted with other physicians in the care of the patient. I interpret independently interpreted diagnostic studies and radiographic studies. I reviewed prior physician documentation. [facility] Disclaimer: The information contained in this section may have been updated after the patient was seen, as this information can be updated by other users. Medical History Frostbite Myocardial injury Atypical chest pain Nausea & vomiting Murmur Abnormal nuclear cardiac imaging test Coronary artery disease Nonhealing skin ulcer Abnormal echocardiogram E. coli UTI Fracture of fifth metatarsal bone of right foot Foot lesion Severe sepsis CHF (congestive heart failure) Abnormal ECG LV dysfunction Ischemic cardiomyopathy Coronary artery disease COVID-19 Gout Hypertension Hyperlipidemia Diabetes mellitus, type 2 Onychomycosis Onychodystrophy Acquired metatarsus varus Abrasion of foot, right Fracture of fourth metatarsal bone of right foot Vaccine counseling Immunization due Blister of foot without infection Surgical History S/P coronary artery stent placement Hx of heart artery stent x5 History of cardiac cath History of tonsillectomy Family History Other Coronary artery disease Diabetes Hyperlipidemia Social History Smoking Status: Never smoker alcohol intake: never current occupational status: employed Travel in the last 8 weeks?: None Have you lived/traveled outside [place] in past 30 days?: No Contact w/someone who lives/traveled outside [place] past 30 days?: No Exposure to someone with infectious disease in past 14 days?: No Do you have a fever (greater than 100.4 F or 38 C)?: No Have you tested positive for COVID-19?: No Exposed to someone with COVID-19 in past 14 days?: No Do you have a sore throat?: No Do you have a cough?: No Do you have any weakness?: No Do you have any diarrhea?: No Are you experiencing any unusual bleeding?: No Do you have any muscle aches/pain?: No Do you have any abdominal pain?: No Are you experiencing loss of taste or smell?: No Other Medical History Have you received the Flu Vaccine for this season: No Have you received the Pneumonia Vaccine: No Review of Systems Review of Systems Review of systems:: unable to obtain (poor historian) and pertinent systems reviewed and negative unless documented below Meds Home Medications and Allergies Home Medications ?Medication ?Instructions ?Recorded ?Confirmed ?Type allopurinol 300 mg tablet 300 mg PO DAILY 02/28/24 09/06/24 History amlodipine 5 mg tablet 5 mg PO DAILY 02/28/24 09/06/24 History aspirin 81 mg tablet,delayed 81 mg PO DAILY 02/28/24 09/06/24 History release carvedilol 3.125 mg tablet 3.125 mg PO BID 02/28/24 09/06/24 History clopidogrel 75 mg tablet 75 mg PO DAILY 02/28/24 09/06/24 History glimepiride 4 mg tablet 2 mg PO DAILY 02/28/24 09/06/24 History metformin 500 mg tablet 500 mg PO BID 02/28/24 09/06/24 History omeprazole 40 mg capsule,delayed 40 mg PO DAILY 02/28/24 09/06/24 History release sacubitril 24 mg-valsartan 26 mg 1 tab PO BID 02/28/24 09/06/24 History tablet (Entresto) vericiguat 10 mg tablet (Verquvo) 10 mg PO DAILY 02/28/24 09/06/24 History rosuvastatin 40 mg tablet (Crestor) 40 mg PO DAILY #90 tabs 07/23/24 09/06/24 Rx New Prescriptions to Start Prescriptions: Allergies Allergy/AdvReac Type Severity Reaction Status Date / Time No Known Allergies Allergy Verified 09/06/24 10:35 Exam Data for Last 24 hours Vital signs and Labs for Last 24 Hours: Temp Pulse Resp BP Pulse Ox O2 Del Method 97.6 F 95 H 22 92/60 L 97 Room Air 09/17/24 16:54 09/17/24 19:46 09/17/24 19:46 09/17/24 19:46 09/17/24 19:46 09/17/24 18:48 Laboratory Results - last 24 hr 09/17/24 16:26: VBG pH 7.30 L, VBG pCO2 42.7, VBG pO2 26.0 L, VBG HCO3 20.5 L, VBG Total CO2 21.8 L, VBG O2 Saturation 42.0 L, VBG Base Excess -5.9 L, VBG Lactic Acid 5.1 H 09/17/24 16:45: WBC 14.7 H, RBC 4.54 L, Hgb 13.4 L, Hct 41.6 L, MCV 91.6, MCH 29.5, MCHC 32.2, RDW 13.1, Plt Count 174, MPV 9.9, Neut % (Auto) 96.2 H, Lymph % (Auto) 0.7 L, [place] % (Auto) 2.2, Eos % (Auto) 0.3, Baso % (Auto) 0.1, Neut # (Auto) 14.1 H, Lymph # (Auto) 0.1 L, [place] # (Auto) 0.3, Eos # (Auto) 0.1, Baso # (Auto) 0.0, Total Counted 100, Neutrophils % (Manual) 90 H, Band Neutrophils % 8, Monocytes % (Manual) 2, Platelet Estimate Normal, RBC Morphology Normal, Sodium 137, Potassium 4.5, Chloride 101, Carbon Dioxide 23, Anion Gap 17.5 H, BUN 39 H, Creatinine 2.50 H, Estimated Creat Clear 39, Estimated GFR 26 L, Est GFR ( Amer) 32 L, Glucose 256 H, Calcium 9.5, Magnesium 1.3 L, Total Bilirubin 0.8, AST 45, ALT 34, Alkaline Phosphatase 97, Troponin I 0.13 H, C-Reactive Protein 298.7 H, NT-Pro-B Natriuret Pep 7900 H, Total Protein 6.8, Albumin 4.2, Globulin 2.6, Albumin/Globulin Ratio 1.6, Lipase 20 L, Procalcitonin 24.5 H, TSH 1.43, Thyroxine (T4) 5.2 L, Acetone Level None detected 09/17/24 17:20: Lactate 3.9 H, Urine Color Yellow, Urine Appearance Clear, Urine pH 6.0, Ur Specific [place] 1.020, Urine Protein 2+ A, Urine Glucose (UA) 3+, Urine Ketones Trace, Urine Blood 2+ A, Urine Nitrate Negative, Urine Bilirubin 1+ A, Urine Urobilinogen 0.2, Ur Leukocyte Esterase Negative, Urine RBC None, Urine WBC Occasional, Ur Squamous Epith Cells None, Urine Bacteria 3+, Fine Granular Casts 3-5 I & O for Last 24 hours: Intake & Output 09/14/24 09/15/24 09/16/24 09/17/24 23:59 23:59 23:59 23:59 Weight 88.451 kg Constitutional Constitutional: no acute distress, chronically ill appearing and disheveled *Routine HEENT Exam Head: Present normocephalic Eye: Present EOMI ENT: Present mucous membranes dry *Routine Neck Exam Neck: Present supple; Absent JVD *Routine Respiratory Exam Respiratory: Present accessory muscle use *Routine Cardiovascular Exam Cardiovascular: Present RRR, Normal S1 and Normal S2; Absent murmur *Routine Abdominal Exam Abdominal: Present soft and normoactive bowel sounds; Absent tenderness or distended *Routine Rectal Exam Rectal:: deferred *Routine Genitalia Exam Genitalia:: normal male Comment:: biggs *Routine Extremities Exam Extremities: Present full ROM and pulses intact; Absent edema or normal capillary refill Comments: Right foot cold below calf. Right popliteal artery 2+. PT and DP pulses diminished. Right foot ulcer Left foot prior surgical amputation. Warm. Palpable pulses *Routine Skin Exam Skin: Present dry; Absent warm *Routine Neurological Exam Neurological: Present alert and oriented X3 Assessment and Plan *Assessment and plan (1) Hypomagnesemia: Status: Acute Category: Medical Code(s): E83.42 - Hypomagnesemia (2) NSTEMI (non-ST elevated myocardial infarction): Status: Acute Category: Medical Code(s): I21.4 - Non-ST elevation (NSTEMI) myocardial infarction (3) Diabetic ulcer of right foot: Status: Acute Qualifiers: Diabetic foot ulcer location: other Diabetes mellitus type: type 2 Non-pressure ulcer stage: with fat layer exposed Qualified Code(s): E11.621 - Type 2 diabetes mellitus with foot ulcer; L97.512 - Non-pressure chronic ulcer of other part of right foot with fat layer exposed Category: Medical Code(s): E11.621 - Type 2 diabetes mellitus with foot ulcer; L97.519 - Non-pressure chronic ulcer of other part of right foot with unspecified severity (4) Heart failure with reduced ejection fraction: Status: Acute Category: Medical Code(s): I50.20 - Unspecified systolic (congestive) heart failure (5) PAD (peripheral artery disease): Status: Acute Category: Medical Code(s): I73.9 - Peripheral vascular disease, unspecified (6) Diabetes mellitus: Status: Chronic Qualifiers: Diabetes mellitus type: type 2 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 use: without ferry terminal supervisor use Diabetes mellitus complication status: without complication Qualified Code(s): E11.9 - Type 2 diabetes mellitus without complications Category: Medical Code(s): E11.9 - Type 2 diabetes mellitus without complications (7) Diabetic foot: Status: Acute Category: Medical Code(s): E11.8 - Type 2 diabetes mellitus with unspecified complications (8) Septic shock: Status: Acute Category: Medical Code(s): A41.9 - Sepsis, unspecified organism; R65.21 - Severe sepsis with septic shock Plan 63-year-old admitted with septic shock as evidenced by hypoperfusion via positive lactate and endorgan damage including acute kidney injury and NSTEMI. Current suspected source is right foot given his cool foot with diminished pulses and open active wound. Will consult podiatry. There is initial concern for fluid resuscitation given his LV dysfunction history however the current echo performed by myself demonstrates hypovolemia and adequate cardiac output. Formal echo in the morning. Will continue IV fluids and Levophed support. Will consult ICU and cardiology for additional evaluation. Septic shock, source suspected diabetic foot Anion gap metabolic acidosis secondary to lactic acidemia acute diabetic foot on chronic diabetic foot - icu admit - Antibiotics - IVF bolus, 12 hrs maintenance, wean fluids, okay to be aggressive with IVF - podiatry consult for foot - xray foot ordered LV dysfunction NSTEMI, type 2 - pocus reported above - tte ordered - consult cardiology - resume gdmt tomrrow as renal function allows PAD - albina ordered - risk factor modification and secondary prevention - lipids ordered, ldl goal < 55 CRISTEL,prerenal - baseline 1, now 2.5 chronic anemia - suspect fe def, iron panel ordered - once Fe def confirmed, give IV Fe following resolution of acute infection for LV dysfunction, improves HF symptoms t2dm - a1c ordered - insulin GI pprx - omeprazole dvt ppx - heparin tid hypomag - replete - replete
--- NOTE | 2024-09-17 20:31 | PC.NURSE ---
vanc complete and unhooked from patient. RN on the phone attempting to give report at this time.
--- NOTE | 2024-09-17 20:34 | PC.NURSE ---
Report called to CECELIA Pete at this time.
[2024-09-17 21:00] LABS: Reflex Lactic Add Lactic Reflex
--- NOTE | 2024-09-17 21:09 | PC.WOUNDNOTE ---
Right Great Toe Left 5th toe
--- NOTE | 2024-09-17 21:10 | XR_ITS ---
PROCEDURE INFORMATION: Exam: XR Right Foot Exam date and time: 09/17/2024 10:11 PM Age: 63 years old Clinical indication: Pain; Foot; Right; Additional info: Osteo TECHNIQUE: Imaging protocol: Radiologic exam of the right foot. Views: 1 or 2 views. COMPARISON: CR XR FOOT RT MIN 3V 08/01/2024 2:01 PM FINDINGS: Bones/joints: Significant degenerative changes of the ankle joint. Moderate degenerative changes throughout the midfoot. Evidence of old, healed fractures of the shafts of the 3rd, 4th and 5th metatarsals. These findings appear similar to previous. No acute fracture. Soft tissues: Normal. IMPRESSION: No acute interval change
--- NOTE | 2024-09-17 21:30 | PC.NURSE ---
contacted [facility] pharmacy for vanc consult.
[2024-09-17] MEDS: 0.9 % SODIUM CHLORIDE 1000ML 1,000 ML 75 ML IV (21:43)
[2024-09-17] MEDS: PANTOPRAZOLE 40MG TABLET 40 MG PO (21:45)
[2024-09-17] MEDS: VANCOMYCIN CONSULT REQUEST 1 EACH NOTAPPLIC (21:45)
[2024-09-17 22:00] LABS: POC Glucose,Bedside 126 (70-110)
[2024-09-17 22:01] LABS: Lactic Acid Follow Up (RFLX 1) 1.5 mmol/L (0.7-2.1)
[2024-09-17 22:03] LABS: Chol/HDL Ratio 2.3 (1-3.5); Cholesterol 54 mg/dl (140-200); HDL Cholesterol 23 mg/dl (40-60); Triglycerides 147 mg/dl (30-150); VLDL Cholesterol 29 mg/dL (0-40)
[2024-09-17 22:14] LABS: Troponin I 0.11 ng/ml (0.00-0.034)
[2024-09-17 22:17] LABS: Direct LDL Cholesterol < 30.00 mg/dL (100-129)
[2024-09-17 22:40] LABS: Activated Partial Thrombo Time 22.8 seconds (22.8-30.6); INR 1.03 (0.9-1.1); Prothrombin Time 11.4 seconds (10.1-12.5)
[2024-09-17] MEDS: HEPARIN SODIUM 5,000 UNIT/ML VIAL 5000 UNIT SUBCUT (23:22)
[2024-09-18] VITALS (49 sets, daily range): BP systolic 80–122; BP diastolic 35–81; PULSE 80–117; RESP 12–28; TEMP 36.8–37.9; O2SAT 91–100
[2024-09-18 00:30] LABS: Troponin I 0.11 ng/ml (0.00-0.034)
--- NOTE | 2024-09-18 01:28 | PC.NURSE ---
At approx 2130 last night, called and spoke with Tiffany Koo MD after pt was admitted to ICU. MD Koo is OK with pt receiving 3L IVF.
--- NOTE | 2024-09-18 01:47 | PC.NURSE ---
Addendum entered by Yanci Mora RN 09/18/24 02:19: [id number], spoke with MD Koo. Verbal order given for 1L NS fluid bolus. pharmacy order sheet faxed Original Note: Pt BP has steadily decreased since IVF bolus was completed. Pts Levophed was weaned to 5mcg/min. Is now up to 10mcg/min, needing frequent titration. HR has been consistent in 110's as well. Attempted to notify provider, MD Koo X2.
[2024-09-18] MEDS: 0.9 % SODIUM CHLORIDE 1000ML 1,000 ML 999 ML IV (02:48)
[2024-09-18] MEDS: PIPERACILLIN/TAZO 3.375 GM in 0.9 % SODIUM CHLORIDE 50 ML IV ×3 (03:45→19:10)
[2024-09-18] MEDS: ACETAMINOPHEN 325MG TAB 650 MG PO (04:28)
--- NOTE | 2024-09-18 05:05 | PC.NURSE ---
PASSWORD TO SHARE INFORMATION- 'I'll never tell .
[2024-09-18] MEDS: NOREPINEPHRINE BITARTRATE/D5W 8 MG/250 ML PLAST..BAG 26.25 MG IV (06:34)
--- NOTE | 2024-09-18 06:40 | P.CONS_ITS ---
Documented by User: Amber Pineda APRN 09/18/24 17:07 History of Present Illness *Admission Date: 09/17/24 *History of present illness: 63-year-old presents with multiple days of poor p.o. intake. General malaise. Nausea, vomiting. Patient is a poor historian and information largely obtained through evaluation and record review. Currently has no other complaints, denies any shortness of breath, pain anywhere including chest pain, no orthopnea, no swelling. Denies any feet pain, particularly on his right foot where there is a lesion he does not have pain. Noted to be hypotensive, given 1 L bolus of normal saline. Lactate was 4 with evidence of NSTEMI and CRISTEL. Given prior extensive cardiovascular history including coronary revascularization, peripheral artery disease revascularization and LV dysfunction as of an echo 1 year ago, the ER was hesitant to give additional fluids to avoid acute decompensated heart failure. Patient was subsequently started on Levophed. EKG NSR with frequent PAC, right bundle branch block. Bedside echo performed by myself demonstrated gross findings of: LVEF 45%, mild LVH, global hypokinesis. LVOT VTI 30, LVOT diameter 1.9, stroke-volume 85mL, cardiac output 8.5 L/min. RV function grossly normal. No significant valvular disease. RA pressure 0 to 3 mmHg. I independently took the history and consulted with other physicians in the care of the patient. I interpret independently interpreted diagnostic studies and radiographic studies. I reviewed prior physician documentation. 09/18/24- Podiatry consult 63year old male podiatry patient last seen by Dr. Trujillo 08/01/24 for Right hallux and lateral ankle DFU wound debridement x2, Left 5th toe DFU wound debridement, Left foot irrigation and debridement, hallux amputation. He was admitted 09/17/24 through the ER for Sepsis, and B/L diabetic foot ulcers. Patient is responsive when asked direct question but otherwise remained with eyes closed. [facility] Disclaimer: The information contained in this section may have been updated after the patient was seen, as this information can be updated by other users. Medical History (Updated 09/18/24 @ 14:08 by Chastity Francisco APRN) Atrial fibrillation Nausea & vomiting Abnormal echocardiogram Ischemic cardiomyopathy Coronary artery disease Hypertension Hyperlipidemia Chronic HFrEF (heart failure with reduced ejection fraction) NSTEMI (non-ST elevated myocardial infarction) Frostbite Myocardial injury Atypical chest pain Murmur Abnormal nuclear cardiac imaging test Nonhealing skin ulcer E. coli UTI Fracture of fifth metatarsal bone of right foot Foot lesion Severe sepsis CHF (congestive heart failure) Abnormal ECG LV dysfunction Coronary artery disease COVID-19 Gout Diabetes mellitus, type 2 Onychomycosis Onychodystrophy Acquired metatarsus varus Abrasion of foot, right Fracture of fourth metatarsal bone of right foot Vaccine counseling Immunization due Blister of foot without infection Surgical History S/P coronary artery stent placement Hx of heart artery stent History of cardiac cath History of tonsillectomy Family History Other Coronary artery disease Diabetes Hyperlipidemia Social History Smoking Status: Never smoker alcohol intake: never current occupational status: employed Travel in the last 8 weeks?: None Have you lived/traveled outside [place] in past 30 days?: No Contact w/someone who lives/traveled outside US past 30 days?: No Exposure to someone with infectious disease in past 14 days?: No Do you have a fever (greater than 100.4 F or 38 C)?: No Have you tested positive for COVID-19?: No Exposed to someone with COVID-19 in past 14 days?: No Do you have a sore throat?: No Do you have a cough?: No Do you have any weakness?: No Do you have any diarrhea?: No Are you experiencing any unusual bleeding?: No Do you have any muscle aches/pain?: No Do you have any abdominal pain?: No Are you experiencing loss of taste or smell?: No Meds Home Medications and Allergies Home Medications ?Medication ?Instructions ?Recorded ?Confirmed ?Type allopurinol 300 mg tablet 300 mg PO DAILY 02/28/24 09/18/24 History amlodipine 5 mg tablet 5 mg PO DAILY 02/28/24 09/18/24 History aspirin 81 mg tablet,delayed 81 mg PO DAILY 02/28/24 09/18/24 History release carvedilol 3.125 mg tablet 3.125 mg PO BID 02/28/24 09/18/24 History clopidogrel 75 mg tablet 75 mg PO DAILY 02/28/24 09/18/24 History glimepiride 4 mg tablet 2 mg PO DAILY 02/28/24 09/18/24 History metformin 500 mg tablet 500 mg PO BID 02/28/24 09/18/24 History omeprazole 40 mg capsule,delayed 40 mg PO DAILY 02/28/24 09/18/24 History release sacubitril 24 mg-valsartan 26 mg 1 tab PO BID 02/28/24 09/18/24 History tablet (Entresto) vericiguat 10 mg tablet (Verquvo) 10 mg PO DAILY 02/28/24 09/18/24 History rosuvastatin 40 mg tablet (Crestor) 40 mg PO DAILY #90 tabs 07/23/24 09/18/24 Rx ertugliflozin 5 mg tablet 5 mg PO DAILY 09/18/24 09/18/24 History (Steglatro) spironolactone 25 mg tablet 25 mg PO DAILY 09/18/24 09/18/24 History New Prescriptions to Start Prescriptions: Allergies Allergy/AdvReac Type Severity Reaction Status Date / Time No Known Allergies Allergy Verified 09/06/24 10:35 Exam (Inpt) Vital signs and Labs for Last 24 Hours: Temp Pulse Resp BP Pulse Ox O2 Del Method 99.9 F H 99 H 16 84/58 L 99 Room Air 09/18/24 06:00 09/18/24 06:00 09/18/24 06:00 09/18/24 06:00 09/18/24 06:00 09/18/24 06:00 Laboratory Results - last 24 hr 09/17/24 16:26: VBG pH 7.30 L, VBG pCO2 42.7, VBG pO2 26.0 L, VBG HCO3 20.5 L, V BG Total CO2 21.8 L, VBG O2 Saturation 42.0 L, VBG Base Excess -5.9 L, VBG Lactic Acid 5.1 H 09/17/24 16:45: WBC 14.7 H, RBC 4.54 L, Hgb 13.4 L, Hct 41.6 L, MCV 91.6, MCH 29.5, MCHC 32.2, RDW 13.1, Plt Count 174, MPV 9.9, Neut % (Auto) 96.2 H, Lymph % (Auto) 0.7 L, Grainger % (Auto) 2.2, Eos % (Auto) 0.3, Baso % (Auto) 0.1, Neut # (Auto) 14.1 H, Lymph # (Auto) 0.1 L, Grainger # (Auto) 0.3, Eos # (Auto) 0.1, Baso # (Auto) 0.0, Total Counted 100, Neutrophils % (Manual) 90 H, Band Neutrophils % 8, Monocytes % (Manual) 2, Platelet Estimate Normal, RBC Morphology Normal, Sodium 137, Potassium 4.5, Chloride 101, Carbon Dioxide 23, Anion Gap 17.5 H, B UN 39 H, Creatinine 2.50 H, Estimated Creat Clear 39, Estimated GFR 26 L, Est GFR ( Amer) 32 L, Glucose 256 H, Calcium 9.5, Magnesium 1.3 L, Total Bilirubin 0.8, AST 45, ALT 34, Alkaline Phosphatase 97, Troponin I 0.13 H, C- Reactive Protein 298.7 H, NT-Pro-B Natriuret Pep 7900 H, Total Protein 6.8, Albumin 4.2, Globulin 2.6, Albumin/Globulin Ratio 1.6, Lipase 20 L, P rocalcitonin 24.5 H, TSH 1.43, Thyroxine (T4) 5.2 L, Acetone Level None detected 09/17/24 17:20: Lactate 3.9 H, Urine Color Yellow, Urine Appearance Clear, Urine pH 6.0, Ur Specific [place] 1.020, Urine Protein 2+ A, Urine Glucose (UA) 3+, Urine Ketones Trace, Urine Blood 2+ A, Urine Nitrate Negative, Urine Bilirubin 1+ A, Urine Urobilinogen 0.2, Ur Leukocyte Esterase Negative, Urine RBC None, Urine WBC Occasional, Ur Squamous Epith Cells None, Urine Bacteria 3+, Fine Granular Casts 3-5 09/17/24 19:33: Chlamy pneumoniae PCR Not detected, Adenovirus (PCR) Not detected, B. pertussis DNA (PCR) Not detected, Coronavirus OC43 (PCR) Not detected, Coronavirus HKU1 (PCR) Not detected, Coronavirus 229E (PCR) Not detected, SARS-CoV-2 (PCR) Not detected, Coronavirus NL63 (PCR) Not detected, Human Metapneumovir PCR Not detected, Influenza A (H1) PCR Not detected, Influ A (H1N1/09) PCR Not detected, Influenza A (H3) PCR Not detected, Influenza Type A (PCR) Not detected, Influenza Type B (PCR) Not detected, M. pneumoniae (PCR) Not detected, Parainfluenza 1 (PCR) Not detected, Parainfluenza 2 (PCR) Not detected, Parainfluenza 3 (PCR) Not detected, Parainfluenza 4 (PCR) Not detected, RSV (PCR) Not detected, Entero/Rhino (PCR) Not detected 09/17/24 21:38: Lactate 1.5, Troponin I 0.11 H, Triglycerides 147, Cholesterol 54 L, LDL Cholesterol Direct < 30.00 L, VLDL Cholesterol 29, HDL Cholesterol 23 L, Cholesterol/HDL Ratio 2.3 09/17/24 21:53: POC Glucose 126 H 09/17/24 22:09: PT 11.4, INR 1.03, APTT 22.8 09/17/24 23:41: Troponin I 0.11 H I & O for Labs for Last 24 Hours: Intake & Output 09/15/24 09/16/24 09/17/24 09/18/24 23:59 23:59 23:59 23:59 Intake Total 3602.752 / 3602.752 2383.612 / 2383.612 Output Total 800 / 800 465 / 465 Balance 2802.752 / 2802.752 1918.612 / 1918.612 Weight 187 lb Constitutional: Present somnolent Head: Present normocephalic Eye: Present as per HPI Neck: Present trachea midline Respiratory: Present normal respiratory effort and able to speak in complete sentences Cardiac: Absent posterior tibial pulses present or pedal pulses present Comment:: B/L Non-palpable, feet cool to touch. ALVARO's have been obtained this morning and he is currently getting Echo done at the bedside. Comments:: deferred Rectal (male): Present deferred (male): Present deferred Extremities: Present edema Comment:: patient has generalized swelling. Skin: Present wounds Comment:: Right medial hallux ulcer, superficial 1.5x2.5x0cm, no drainage. Left medial 3rd toe ulcer 1.0 x 1.0x 0cm , no drainage Left lateral 5th toe ulcer, Wound culture obtained, 3.0 x 1.5 x 0.3 cm probes -All Wounds Debrided with a 15' blade sharply, excisionally through skin into the subcu layer. Fibrotic tissue was removed. Minimal bleeding,Granular base was noted. -Wounds cleaned with wound final cleaner then dressed with Betadine soaked gauze, Reid and Chi wrap Neuro: Present Weakness and oriented x 3 Comment:: somnolent Ankle: right: wound (Right lower leg ulcer ) and bilateral: swelling Feet/Toes: left: amputation (LH amputation; site well healed), left: swelling (L 5th toe ulcer, swelling, Wcx taken, ulcer probes. ) and left: tenderness and bilateral: erythema (surrounding borders of ulcers), bilateral: nail abnormalities, bilateral: onychomycosis and bilateral: wound (R medial hallux, Left lateral 3rd toe, Left Lateral 5th DFU's L) Inspection: Present foot deformity deformity: Present other (LH amputation), nail disorder, infection and ulceration Pulses: L dorsalis pedis pulse: diminished (Unable to palpate DP/PT pulses ), R dorsalis pedis pulse: diminished, L posterior tibial pulse: diminished and R posterior tibial pulse: diminished CFT: dim: CFT Results Labs 09/17/24 16:45 09/18/24 08:00 Labs: Abnormal lab results 09/17/24 09/17/24 09/17/24 Range/Units 16:26 16:45 17:20 WBC 14.7 H (4.8-10.8) K/mm3 RBC 4.54 L (4.60-6.20) M/mm3 Hgb 13.4 L (14.1-18.0) g/dL Hct 41.6 L (42.0-52.0) % Neut % (Auto) 96.2 H (37.0-80.0) % Lymph % (Auto) 0.7 L (10-50) % Neut # (Auto) 14.1 H (1.8-7.8) K/mm3 Lymph # (Auto) 0.1 L (0.7-4.5) K/mm3 Neutrophils % (Manual) 90 H (42-76) % VBG pH 7.30 L (7.31-7.41) mmol/L VBG pO2 26.0 L (28-40) mmol/L VBG HCO3 20.5 L (23-30) mmol/L VBG Total CO2 21.8 L (23-27) mmol/L VBG O2 Saturation 42.0 L (50-70) % VBG Base Excess -5.9 L (-2.4-2.3) mmol/L VBG Lactic Acid 5.1 H (0.4-2.0) mmol/L Anion Gap 17.5 H (5-15) mEq/L BUN 39 H (9-20) mg/dl Creatinine 2.50 H (0.66-1.25) mg/dl Estimated GFR 26 L (>60) ml/min Est GFR ( Amer) 32 L (>60) ML/MIN Glucose 256 H (74-100) mg/dl POC Glucose (70-110) Lactate 3.9 H (0.7-2.1) mmol/L Magnesium 1.3 L (1.6-2.3) mg/dl Troponin I 0.13 H (0.00-0.034) ng/ml C-Reactive Protein 298.7 H (0-4) mg/L NT-Pro-B Natriuret Pep 7900 H (0-125) pg/mL Cholesterol (140-200) mg/dl LDL Cholesterol Direct (100-129) mg/dL HDL Cholesterol (40-60) mg/dl Lipase 20 L (23-300) U/L Procalcitonin 24.5 H (0.0-2.0) ng/mL Thyroxine (T4) 5.2 L (5.53-11.0) ug/dl Urine Protein 2+ A (Negative) Urine Blood 2+ A (Negative) Urine Bilirubin 1+ A (Negative) 09/17/24 09/17/24 09/17/24 Range/Units 21:38 21:53 23:41 WBC (4.8-10.8) K/mm3 RBC (4.60-6.20) M/mm3 Hgb (14.1-18.0) g/dL Hct (42.0-52.0) % Neut % (Auto) (37.0-80.0) % Lymph % (Auto) (10-50) % Neut # (Auto) (1.8-7.8) K/mm3 Lymph # (Auto) (0.7-4.5) K/mm3 Neutrophils % (Manual) (42-76) % VBG pH (7.31-7.41) mmol/L VBG pO2 (28-40) mmol/L VBG HCO3 (23-30) mmol/L VBG Total CO2 (23-27) mmol/L VBG O2 Saturation (50-70) % VBG Base Excess (-2.4-2.3) mmol/L VBG Lactic Acid (0.4-2.0) mmol/L Anion Gap (5-15) mEq/L BUN (9-20) mg/dl Creatinine (0.66-1.25) mg/dl Estimated GFR (>60) ml/min Est GFR ( Amer) (>60) ML/MIN Glucose (74-100) mg/dl POC Glucose 126 H (70-110) Lactate (0.7-2.1) mmol/L Magnesium (1.6-2.3) mg/dl Troponin I 0.11 H 0.11 H (0.00-0.034) ng/ml C-Reactive Protein (0-4) mg/L NT-Pro-B Natriuret Pep (0-125) pg/mL Cholesterol 54 L (140-200) mg/dl LDL Cholesterol Direct < 30.00 L (100-129) mg/dL HDL Cholesterol 23 L (40-60) mg/dl Lipase (23-300) U/L Procalcitonin (0.0-2.0) ng/mL Thyroxine (T4) (5.53-11.0) ug/dl Urine Protein (Negative) Urine Blood (Negative) Urine Bilirubin (Negative) H & H 09/17/24 Range/Units 16:45 Hgb 13.4 L (14.1-18.0) g/dL Hct 41.6 L (42.0-52.0) % Coagulation 09/17/24 Range/Units 22:09 INR 1.03 (0.9-1.1) All other labs normal. Assessment and Plan *Assessment and plan (1) Cellulitis of left foot: Status: Acute Category: Medical Code(s): L03.116 - Cellulitis of left lower limb (2) Diabetic ulcer of right foot: Problem Comment: Right 5th toe DFU probes to bone Status: Acute Qualifiers: Diabetes mellitus type: type 2 Diabetic foot ulcer location: other N on-pressure ulcer stage: with fat layer exposed Qualified Code(s): E11.621 - Type 2 diabetes mellitus with foot ulcer; L97.512 - Non-pressure chronic ulcer of other part of right foot with fat layer exposed Category: Medical Code(s): E11.621 - Type 2 diabetes mellitus with foot ulcer; L97.519 - Non-pressure chronic ulcer of other part of right foot with unspecified severity (3) Diabetic ulcer of left foot: Status: Acute Qualifiers: Diabetes mellitus type: type 2 Diabetic foot ulcer location: other N on-pressure ulcer stage: with fat layer exposed Qualified Code(s): E11.621 - Type 2 diabetes mellitus with foot ulcer; L97.522 - Non-pressure chronic ulcer of other part of left foot with fat layer exposed Category: Medical Code(s): E11.621 - Type 2 diabetes mellitus with foot ulcer; L97.529 - Non-pressure chronic ulcer of other part of left foot with unspecified severity (4) Diabetes mellitus with diabetic neuropathy: Status: Acute Qualifiers: 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 Diabetes mellitus type: type 2 Qualified Code(s): E11.40 - Type 2 diabetes mellitus with diabetic neuropathy, unspecified Category: Medical Code(s): E11.40 - Type 2 diabetes mellitus with diabetic neuropathy, unspecified (5) PAD (peripheral artery disease): Status: Acute Category: Medical Code(s): I73.9 - Peripheral vascular disease, unspecified (6) History of amputation of great toe: Status: Acute Category: Surgical Code(s): Z89.419 - Acquired absence of unspecified great toe (7) Skin ulcer of right great toe: Status: Acute Qualifiers: Non-pressure ulcer stage: limited to breakdown of skin Qualified Code(s): L97.511 - Non-pressure chronic ulcer of other part of right foot limited to breakdown of skin Category: Medical Code(s): L97.519 - Non-pressure chronic ulcer of other part of right foot with unspecified severity (8) Skin ulcer of third toe of left foot: Status: Acute Qualifiers: Non-pressure ulcer stage: limited to breakdown of skin Qualified Code(s): L97.521 - Non-pressure chronic ulcer of other part of left foot limited to breakdown of skin Category: Medical Code(s): L97.529 - Non-pressure chronic ulcer of other part of left foot with unspecified severity (9) Leg wound, right: Status: Acute Qualifiers: Encounter type: initial encounter Qualified Code(s): S81.801A - Unspecified open wound, right lower leg, initial encounter Category: Medical Code(s): S81.801A - Unspecified open wound, right lower leg, initial encounter (10) Osteoarthritis: Status: Acute Qualifiers: Laterality: right Osteoarthritis location: foot Osteoarthritis type: p rimary Qualified Code(s): M19.071 - Primary osteoarthritis, right ankle and foot Category: Medical Code(s): M19.90 - Unspecified osteoarthritis, unspecified site (11) Diabetic foot: Status: Acute Category: Medical Code(s): E11.8 - Type 2 diabetes mellitus with unspecified complications (12) Status post amputation of left great toe: Problem Comment: Surgery, 08/01/24: s/p Right hallux and lateral ankle DFU wound debridement x2, Left 5th toe DFU wound debridement, Left foot irrigation and debridement, hallux amputation Status: Acute Category: Surgical Code(s): Z89.412 - Acquired absence of left great toe Plan 09/18/24 Viewed labs 09/17/2024 WBC 14.7 BUN 39, creatinine 2.50, GFR 26, glucose 256, CRP 298.7 09/18/24: Left foot 3V X-rays- FINDINGS: LEFT FOOT Three views of the left foot demonstrate prior amputation of the 1st digit. There is hammertoe deformity of the 2nd digit. There appears to be sclerosis or calcification over the dorsal aspect of the 2nd digit. There is no evidence of bony erosion of the 5th digit. There is no acute fracture or dislocation. The visualized joint spaces are normally aligned. Overlying soft tissue edema is noted of the 5th digit. IMPRESSION: Soft tissue edema of the 5th digit without evidence of bony erosion. Reviewed, Interpreted and Dictated by Hermes Zepeda MD Transcribed by Isaura Billy Reviewed ALVARO's 09/18/24: FINDINGS: ANKLE-BRACHIAL PRESSURE INDICES Pressure indices are as follows: RIGHT LOWER EXTREMITY: Ankle-brachial pressure index: 1.64 Comments: Normal LEFT LOWER EXTREMITY: Ankle-brachial pressure index: 1.67 Comments: Normal IMPRESSION: No evidence of significant obstructive peripheral vascular disease of the lower extremities Reviewed, Interpreted and Dictated by Hermes Zepeda MD Transcribed by Isaura Billy -He has two Non-compressible's at B/L calves, B/L toes are low at 0.63 and low amp at 6mm on right and 11mm on left. Left foot CT wo con: 09/18/24: FINDINGS: There is marked hypertrophic osteophyte formation along the dorsal aspect of the intertarsal joints consistent with advanced osteoarthritis. There is degenerative osteochondral defect in the lateral talar dome. Small intra-articular loose body are identified in the medial mortise measuring 3 mm. There has been amputation of the first digit with overlying soft tissue edema. There is fragmentation of the second distal phalange which may be due to old trauma. There is no evidence of bony erosion or periosteal reaction of the fifth digit. IMPRESSION:Marked hypertrophic changes of osteoarthritis of the dorsal intertarsal joints. Osteochondral defect of the lateral talar dome. Prior amputation of the first digit with overlying soft tissue edema. Small intra- articular loose body as above.Reviewed, Interpreted and Dictated by Hermes Zepeda MD Transcribed by Mariana Anna S/P Surgery, 08/01/24: s/p Right hallux and lateral ankle DFU wound debridement x2, Left 5th toe DFU wound debridement, Left foot irrigation and debridement, hallux amputation Plan: -Patient made NPO for Podiatry consult -Discussed plan of care with Dr Grissom. -Left 5th toe wound cultured, Ulcer probes deep -B/L foot/ankle dressing changed. -Betadine soaked gauze, DSD applied. -Continue IV abx per Dr Grissom: broad spectrum coverage: Vanco, Zosyn. -PWB in b/l post op shoes, walker. -Plan to hold on surgery for now until he has cardiac testing completed -All order per Dr. Trujillo Documented by User: Odette Trujillo DPM 09/18/24 17:29 [facility] Medical History (Updated 09/18/24 @ 14:08 by Chastity Francisco APRN) Atrial fibrillation Nausea & vomiting Abnormal echocardiogram Ischemic cardiomyopathy Coronary artery disease Hypertension Hyperlipidemia Chronic HFrEF (heart failure with reduced ejection fraction) NSTEMI (non-ST elevated myocardial infarction) Frostbite Myocardial injury Atypical chest pain Murmur Abnormal nuclear cardiac imaging test Nonhealing skin ulcer E. coli UTI Fracture of fifth metatarsal bone of right foot Foot lesion Severe sepsis CHF (congestive heart failure) Abnormal ECG LV dysfunction Coronary artery disease COVID-19 Gout Diabetes mellitus, type 2 Onychomycosis Onychodystrophy Acquired metatarsus varus Abrasion of foot, right Fracture of fourth metatarsal bone of right foot Vaccine counseling Immunization due Blister of foot without infection Surgical History S/P coronary artery stent placement Hx of heart artery stent History of cardiac cath History of tonsillectomy Family History Other Coronary artery disease Diabetes Hyperlipidemia Social History Smoking Status: Never smoker alcohol intake: never current occupational status: employed Travel in the last 8 weeks?: None Have you lived/traveled outside [place] in past 30 days?: No Contact w/someone who lives/traveled outside [place] past 30 days?: No Exposure to someone with infectious disease in past 14 days?: No Do you have a fever (greater than 100.4 F or 38 C)?: No Have you tested positive for COVID-19?: No Exposed to someone with COVID-19 in past 14 days?: No Do you have a sore throat?: No Do you have a cough?: No Do you have any weakness?: No Do you have any diarrhea?: No Are you experiencing any unusual bleeding?: No Do you have any muscle aches/pain?: No Do you have any abdominal pain?: No Are you experiencing loss of taste or smell?: No Meds Home Medications and Allergies Home Medications ?Medication ?Instructions ?Recorded ?Confirmed ?Type allopurinol 300 mg tablet 300 mg PO DAILY 02/28/24 09/18/24 History amlodipine 5 mg tablet 5 mg PO DAILY 02/28/24 09/18/24 History aspirin 81 mg tablet,delayed 81 mg PO DAILY 02/28/24 09/18/24 History release carvedilol 3.125 mg tablet 3.125 mg PO BID 02/28/24 09/18/24 History clopidogrel 75 mg tablet 75 mg PO DAILY 02/28/24 09/18/24 History glimepiride 4 mg tablet 2 mg PO DAILY 02/28/24 09/18/24 History metformin 500 mg tablet 500 mg PO BID 02/28/24 09/18/24 History omeprazole 40 mg capsule,delayed 40 mg PO DAILY 02/28/24 09/18/24 History release sacubitril 24 mg-valsartan 26 mg 1 tab PO BID 02/28/24 09/18/24 History tablet (Entresto) vericiguat 10 mg tablet (Verquvo) 10 mg PO DAILY 02/28/24 09/18/24 History rosuvastatin 40 mg tablet (Crestor) 40 mg PO DAILY #90 tabs 07/23/24 09/18/24 Rx ertugliflozin 5 mg tablet 5 mg PO DAILY 09/18/24 09/18/24 History (Steglatro) spironolactone 25 mg tablet 25 mg PO DAILY 09/18/24 09/18/24 History New Prescriptions to Start Prescriptions: Allergies Allergy/AdvReac Type Severity Reaction Status Date / Time No Known Allergies Allergy Verified 09/06/24 10:35 Results Labs 09/17/24 16:45 09/18/24 08:00 Assessment and Plan *Assessment and plan (1) Cellulitis of left foot: Status: Acute Category: Medical Code(s): L03.116 - Cellulitis of left lower limb (2) Diabetic ulcer of right foot: Problem Comment: Right 5th toe DFU probes to bone Status: Acute Qualifiers: Diabetes mellitus type: type 2 Diabetic foot ulcer location: other N on-pressure ulcer stage: with fat layer exposed Qualified Code(s): E11.621 - Type 2 diabetes mellitus with foot ulcer; L97.512 - Non-pressure chronic ulcer of other part of right foot with fat layer exposed Category: Medical Code(s): E11.621 - Type 2 diabetes mellitus with foot ulcer; L97.519 - Non-pressure chronic ulcer of other part of right foot with unspecified severity (3) Diabetic ulcer of left foot: Status: Acute Qualifiers: Diabetes mellitus type: type 2 Diabetic foot ulcer location: other N on-pressure ulcer stage: with fat layer exposed Qualified Code(s): E11.621 - Type 2 diabetes mellitus with foot ulcer; L97.522 - Non-pressure chronic ulcer of other part of left foot with fat layer exposed Category: Medical Code(s): E11.621 - Type 2 diabetes mellitus with foot ulcer; L97.529 - Non-pressure chronic ulcer of other part of left foot with unspecified severity (4) Diabetes mellitus with diabetic neuropathy: Status: Acute Qualifiers: Diabetes mellitus assisted insulin use: without 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 Diabetes mellitus type: type 2 Qualified Code(s): E11.40 - Type 2 diabetes mellitus with diabetic neuropathy, unspecified Category: Medical Code(s): E11.40 - Type 2 diabetes mellitus with diabetic neuropathy, unspecified (5) PAD (peripheral artery disease): Status: Acute Category: Medical Code(s): I73.9 - Peripheral vascular disease, unspecified (6) History of amputation of great toe: Status: Acute Category: Surgical Code(s): Z89.419 - Acquired absence of unspecified great toe (7) Skin ulcer of right great toe: Status: Acute Qualifiers: Non-pressure ulcer stage: limited to breakdown of skin Qualified Code(s): L97.511 - Non-pressure chronic ulcer of other part of right foot limited to breakdown of skin Category: Medical Code(s): L97.519 - Non-pressure chronic ulcer of other part of right foot with unspecified severity (8) Skin ulcer of third toe of left foot: Status: Acute Qualifiers: Non-pressure ulcer stage: limited to breakdown of skin Qualified Code(s): L97.521 - Non-pressure chronic ulcer of other part of left foot limited to breakdown of skin Category: Medical Code(s): L97.529 - Non-pressure chronic ulcer of other part of left foot with unspecified severity (9) Leg wound, right: Status: Acute Qualifiers: Encounter type: initial encounter Qualified Code(s): S81.801A - Unspecified open wound, right lower leg, initial encounter Category: Medical Code(s): S81.801A - Unspecified open wound, right lower leg, initial encounter (10) Osteoarthritis: Status: Acute Qualifiers: Laterality: right Osteoarthritis location: foot Osteoarthritis type: p rimary Qualified Code(s): M19.071 - Primary osteoarthritis, right ankle and foot Category: Medical Code(s): M19.90 - Unspecified osteoarthritis, unspecified site (11) Diabetic foot: Status: Acute Category: Medical Code(s): E11.8 - Type 2 diabetes mellitus with unspecified complications (12) Status post amputation of left great toe: Problem Comment: Surgery, 08/01/24: s/p Right hallux and lateral ankle DFU wound debridement x2, Left 5th toe DFU wound debridement, Left foot irrigation and debridement, hallux amputation Status: Acute Category: Surgical Code(s): Z89.412 - Acquired absence of left great toe Plan 09/18/24 Viewed labs 09/17/2024 WBC 14.7 BUN 39, creatinine 2.50, GFR 26, glucose 256, CRP 298.7 09/18/24: Left foot 3V X-rays- FINDINGS: LEFT FOOT Three views of the left foot demonstrate prior amputation of the 1st digit. There is hammertoe deformity of the 2nd digit. There appears to be sclerosis or calcification over the dorsal aspect of the 2nd digit. There is no evidence of bony erosion of the 5th digit. There is no acute fracture or dislocation. The visualized joint spaces are normally aligned. Overlying soft tissue edema is noted of the 5th digit. IMPRESSION: Soft tissue edema of the 5th digit without evidence of bony erosion. Reviewed, Interpreted and Dictated by Hermes Zepeda MD Transcribed by Isaura Billy Reviewed ALVARO's 09/18/24: FINDINGS: ANKLE-BRACHIAL PRESSURE INDICES Pressure indices are as follows: RIGHT LOWER EXTREMITY: Ankle-brachial pressure index: 1.64 Comments: Normal LEFT LOWER EXTREMITY: Ankle-brachial pressure index: 1.67 Comments: Normal IMPRESSION: No evidence of significant obstructive peripheral vascular disease of the lower extremities Reviewed, Interpreted and Dictated by Hermes Zepeda MD Transcribed by Isaura Billy -He has two Non-compressible's at B/L calves, B/L toes are low at 0.63 and low amp at 6mm on right and 11mm on left. Left foot CT wo con: 09/18/24: FINDINGS: There is marked hypertrophic osteophyte formation along the dorsal aspect of the intertarsal joints consistent with advanced osteoarthritis. There is degenerative osteochondral defect in the lateral talar dome. Small intra-articular loose body are identified in the medial mortise measuring 3 mm. There has been amputation of the first digit with overlying soft tissue edema. There is fragmentation of the second distal phalange which may be due to old trauma. There is no evidence of bony erosion or periosteal reaction of the fifth digit. IMPRESSION:Marked hypertrophic changes of osteoarthritis of the dorsal intertarsal joints. Osteochondral defect of the lateral talar dome. Prior amputation of the first digit with overlying soft tissue edema. Small intra- articular loose body as above.Reviewed, Interpreted and Dictated by Hermes Zepeda MD Transcribed by Mariana Anna S/P Surgery, 08/01/24: s/p Right hallux and lateral ankle DFU wound debridement x2, Left 5th toe DFU wound debridement, Left foot irrigation and debridement, hallux amputation Plan: -Patient made NPO for Podiatry consult -Discussed plan of care with Dr Grissom. -Left 5th toe wound cultured, Ulcer probes deep -B/L foot/ankle dressing changed. -Betadine soaked gauze, DSD applied. -Continue IV abx per Dr Grissom: broad spectrum coverage: Vanco, Zosyn. -PWB in b/l post op shoes, walker. -Plan to hold on surgery for now until he has cardiac testing completed -All order per Dr. 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 -B/L DFU noted and sharp excisional full thickness debridement with 15 blade. See PE skin for details/measurements. -Betadine soaked gauze, DSD applied. -I independently reviewed labs, xr and CT left foot. -CT left foot series 3 image 70 there appears to be a questionable erosion on the left proximal phalanx head laterally. Report read as no osteomyelitis or cortical erosions. -Will plan to re-evaluate the physical exam zachary. -If patient's sepsis symptoms, infection labs are not improving with IV abx, may need to consider bone biopsy or left 5th toe amputation. -Given his current state of health, and no purulence, ascending cellulitis or foot pain-would not guerrero to do foot surgery. -Will hold on Podiatry procedures, as patient needs heart cath. -Podiatry will continue to follow.
--- NOTE | 2024-09-18 07:43 | EXP.PHA.CONS ---
Pharmacy Consult Date: 09/18/24 Time: 07:43 Referring provider: DR. ALVAREZ Reason for Consult:: VANCOMYCIN DOSING Allergies Allergy/AdvReac Type Severity Reaction Status Date / Time No Known Allergies Allergy Verified 09/06/24 10:35 Home Medications ?Medication ?Instructions ?Recorded ?Confirmed ?Type allopurinol 300 mg tablet 300 mg PO DAILY 02/28/24 09/06/24 History amlodipine 5 mg tablet 5 mg PO DAILY 02/28/24 09/06/24 History aspirin 81 mg tablet,delayed 81 mg PO DAILY 02/28/24 09/06/24 History release carvedilol 3.125 mg tablet 3.125 mg PO BID 02/28/24 09/06/24 History clopidogrel 75 mg tablet 75 mg PO DAILY 02/28/24 09/06/24 History glimepiride 4 mg tablet 2 mg PO DAILY 02/28/24 09/06/24 History metformin 500 mg tablet 500 mg PO BID 02/28/24 09/06/24 History omeprazole 40 mg capsule,delayed 40 mg PO DAILY 02/28/24 09/06/24 History release sacubitril 24 mg-valsartan 26 mg 1 tab PO BID 02/28/24 09/06/24 History tablet (Entresto) vericiguat 10 mg tablet (Verquvo) 10 mg PO DAILY 02/28/24 09/06/24 History rosuvastatin 40 mg tablet (Crestor) 40 mg PO DAILY #90 tabs 07/23/24 09/06/24 Rx New Prescriptions to Start Prescriptions: Height: 1.78 m Weight: 84.822 kg Laboratory Results:: Laboratory Results - last 24 hr 09/17/24 16:26: VBG pH 7.30 L, VBG pCO2 42.7, VBG pO2 26.0 L, VBG HCO3 20.5 L, VBG Total CO2 21.8 L, VBG O2 Saturation 42.0 L, VBG Base Excess -5.9 L, VBG Lactic Acid 5.1 H 09/17/24 16:45: WBC 14.7 H, RBC 4.54 L, Hgb 13.4 L, Hct 41.6 L, MCV 91.6, MCH 29.5, MCHC 32.2, RDW 13.1, Plt Count 174, MPV 9.9, Neut % (Auto) 96.2 H, Lymph % (Auto) 0.7 L, [place] % (Auto) 2.2, Eos % (Auto) 0.3, Baso % (Auto) 0.1, Neut # (Auto) 14.1 H, Lymph # (Auto) 0.1 L, [place] # (Auto) 0.3, Eos # (Auto) 0.1, Baso # (Auto) 0.0, Total Counted 100, Neutrophils % (Manual) 90 H, Band Neutrophils % 8, Monocytes % (Manual) 2, Platelet Estimate Normal, RBC Morphology Normal, Sodium 137, Potassium 4.5, Chloride 101, Carbon Dioxide 23, Anion Gap 17.5 H, BUN 39 H, Creatinine 2.50 H, Estimated Creat Clear 39, Estimated GFR 26 L, Est GFR ( Amer) 32 L, Glucose 256 H, Calcium 9.5, Magnesium 1.3 L, Total Bilirubin 0.8, AST 45, ALT 34, Alkaline Phosphatase 97, Troponin I 0.13 H, C-Reactive Protein 298.7 H, NT-Pro-B Natriuret Pep 7900 H, Total Protein 6.8, Albumin 4.2, Globulin 2.6, Albumin/Globulin Ratio 1.6, Lipase 20 L, Procalcitonin 24.5 H, TSH 1.43, Thyroxine (T4) 5.2 L, Acetone Level None detected 09/17/24 17:20: Lactate 3.9 H, Urine Color Yellow, Urine Appearance Clear, Urine pH 6.0, Ur Specific [place] 1.020, Urine Protein 2+ A, Urine Glucose (UA) 3+, Urine Ketones Trace, Urine Blood 2+ A, Urine Nitrate Negative, Urine Bilirubin 1+ A, Urine Urobilinogen 0.2, Ur Leukocyte Esterase Negative, Urine RBC None, Urine WBC Occasional, Ur Squamous Epith Cells None, Urine Bacteria 3+, Fine Granular Casts 3-5 09/17/24 19:33: Chlamy pneumoniae PCR Not detected, Adenovirus (PCR) Not detected, B. pertussis DNA (PCR) Not detected, Coronavirus OC43 (PCR) Not detected, Coronavirus HKU1 (PCR) Not detected, Coronavirus 229E (PCR) Not detected, SARS-CoV-2 (PCR) Not detected, Coronavirus NL63 (PCR) Not detected, Human Metapneumovir PCR Not detected, Influenza A (H1) PCR Not detected, Influ A (H1N1/09) PCR Not detected, Influenza A (H3) PCR Not detected, Influenza Type A (PCR) Not detected, Influenza Type B (PCR) Not detected, M. pneumoniae (PCR) Not detected, Parainfluenza 1 (PCR) Not detected, Parainfluenza 2 (PCR) Not detected, Parainfluenza 3 (PCR) Not detected, Parainfluenza 4 (PCR) Not detected, RSV (PCR) Not detected, Entero/Rhino (PCR) Not detected 09/17/24 21:38: Lactate 1.5, Troponin I 0.11 H, Triglycerides 147, Cholesterol 54 L, LDL Cholesterol Direct < 30.00 L, VLDL Cholesterol 29, HDL Cholesterol 23 L, Cholesterol/HDL Ratio 2.3 09/17/24 21:53: POC Glucose 126 H 09/17/24 22:09: PT 11.4, INR 1.03, APTT 22.8 09/17/24 23:41: Troponin I 0.11 H Medical History: Medical History (Updated 09/17/24 @ 20:29 by Amrita Alvarez MD) Frostbite Myocardial injury Atypical chest pain Nausea & vomiting Murmur Abnormal nuclear cardiac imaging test Coronary artery disease Nonhealing skin ulcer Abnormal echocardiogram E. coli UTI Fracture of fifth metatarsal bone of right foot Foot lesion Severe sepsis CHF (congestive heart failure) Abnormal ECG LV dysfunction Ischemic cardiomyopathy Coronary artery disease COVID-19 Gout Hypertension Hyperlipidemia Diabetes mellitus, type 2 Onychomycosis Onychodystrophy Acquired metatarsus varus Abrasion of foot, right Fracture of fourth metatarsal bone of right foot Vaccine counseling Immunization due Blister of foot without infection Assessment and Plan Assessment and plan all Dx Assessment and Plan for all problems:: Pharmacokinetic dosing service Objective: Patient: Floor: Age: 63 yo Serum creatinine: 2.5 mg/dL Height: 70.1 Inches Weight (kg): 85 Assessment: IBW (kg): 73.23 Dosing wt(kg): 85 Estimated Creatinine clearance (ml/min): 32.1 CRCL method: Cockcroft and Gault using ibw(default). Drug selected: Vancomycin Loading dose (mg): 0 Vd (liters): 68.0 (factor used: 0.8 L/kg) Stepan (hr-1): 0.031 Half life (hrs): 22.36 Recommended dose: 1250 mg Interval: 24 hrs Infusion time (hrs): 2.0 Predicted peak (mcg/mL): 34.0 Predicted trough (mcg/mL): 17.19 Total body weight is being used for vancomycin dosing. Recommendations: Give Vancomycin 1250 mg q 24 hrs with an expected Cpeak of 34.0 mcg/ml and an expected Ctrough of 17.19 mcg/ml ----Vanco only - ignore for aminoglycosides----- CLvanco= 2.11 L/hr AUC 0-24 /SIMON Data: SIMON 0.5 mcg/mL: AUC/SIMON: 1184.8 SIMON 1.0 mcg/mL: AUC/SIMON: 592.4 --------- SIMON 1.5 mcg/mL: AUC/SIMON: 394.9 SIMON 2.0 mcg/mL: AUC/SIMON: 296.2
--- NOTE | 2024-09-18 08:11 | P.PN_ITS ---
Subjective *Date: 09/18/24 *Time: 08:51 Interval history: Patient denies chest pain and shortness of breath. He has been seen by podiatry this morning with dressing changes tube bilateral feet. Nurses report increase in thirst during the night. He has had a good urinary output. He has a Henriquez catheter to bedside drainage. With Henriquez insertion drainage was noted around the penis. He remains on a Levophed drip with blood pressure range. From 105/72 low of 81/54. New wound cultures from the feet have been obtained today with other cultures pending results. Podiatry has seen the patient and perform dressing changes to bilateral feet. Remains on normal saline IV at 75 an hour with IV antibiotics of piperacillin and vancomycin. Exam Data for Last 24 hours Vital signs and Labs for Last 24 Hours: Temp Pulse Resp BP Pulse Ox O2 Del Method 99.9 F H 96 H 18 83/56 L 94 L Room Air 09/18/24 06:00 09/18/24 07:00 09/18/24 07:00 09/18/24 07:00 09/18/24 07:00 09/18/24 07:00 Laboratory Results - last 24 hr 09/17/24 16:26: VBG pH 7.30 L, VBG pCO2 42.7, VBG pO2 26.0 L, VBG HCO3 20.5 L, VBG Total CO2 21.8 L, VBG O2 Saturation 42.0 L, VBG Base Excess -5.9 L, VBG Lactic Acid 5.1 H 09/17/24 16:45: WBC 14.7 H, RBC 4.54 L, Hgb 13.4 L, Hct 41.6 L, MCV 91.6, MCH 29.5, MCHC 32.2, RDW 13.1, Plt Count 174, MPV 9.9, Neut % (Auto) 96.2 H, Lymph % (Auto) 0.7 L, [place] % (Auto) 2.2, Eos % (Auto) 0.3, Baso % (Auto) 0.1, Neut # (Auto) 14.1 H, Lymph # (Auto) 0.1 L, [place] # (Auto) 0.3, Eos # (Auto) 0.1, Baso # (Auto) 0.0, Total Counted 100, Neutrophils % (Manual) 90 H, Band Neutrophils % 8, Monocytes % (Manual) 2, Platelet Estimate Normal, RBC Morphology Normal, Sodium 137, Potassium 4.5, Chloride 101, Carbon Dioxide 23, Anion Gap 17.5 H, BUN 39 H, Creatinine 2.50 H, Estimated Creat Clear 39, Estimated GFR 26 L, Est GFR ( Amer) 32 L, Glucose 256 H, Calcium 9.5, Magnesium 1.3 L, Total Bilirubin 0.8, AST 45, ALT 34, Alkaline Phosphatase 97, Troponin I 0.13 H, C- Reactive Protein 298.7 H, NT-Pro-B Natriuret Pep 7900 H, Total Protein 6.8, Albumin 4.2, Globulin 2.6, Albumin/Globulin Ratio 1.6, Lipase 20 L, Procalcitonin 24.5 H, TSH 1.43, Thyroxine (T4) 5.2 L, Acetone Level None detected 09/17/24 17:20: Lactate 3.9 H, Urine Color Yellow, Urine Appearance Clear, Urine pH 6.0, Ur Specific [place] 1.020, Urine Protein 2+ A, Urine Glucose (UA) 3+, Urine Ketones Trace, Urine Blood 2+ A, Urine Nitrate Negative, Urine Bilirubin 1+ A, Urine Urobilinogen 0.2, Ur Leukocyte Esterase Negative, Urine RBC None, U rine WBC Occasional, Ur Squamous Epith Cells None, Urine Bacteria 3+, Fine Granular Casts 3-5 09/17/24 19:33: Chlamy pneumoniae PCR Not detected, Adenovirus (PCR) Not detected, B. pertussis DNA (PCR) Not detected, Coronavirus OC43 (PCR) Not detected, Coronavirus HKU1 (PCR) Not detected, Coronavirus 229E (PCR) Not detected, SARS-CoV-2 (PCR) Not detected, Coronavirus NL63 (PCR) Not detected, Human Metapneumovir PCR Not detected, Influenza A (H1) PCR Not detected, Influ A (H1N1/09) PCR Not detected, Influenza A (H3) PCR Not detected, Influenza Type A (PCR) Not detected, Influenza Type B (PCR) Not detected, M. pneumoniae (PCR) Not detected, Parainfluenza 1 (PCR) Not detected, Parainfluenza 2 (PCR) Not detected, Parainfluenza 3 (PCR) Not detected, Parainfluenza 4 (PCR) Not detected, RSV (PCR) Not detected, Entero/Rhino (PCR) Not detected 09/17/24 21:38: Lactate 1.5, Troponin I 0.11 H, Triglycerides 147, Cholesterol 54 L, LDL Cholesterol Direct < 30.00 L, VLDL Cholesterol 29, HDL Cholesterol 23 L, Cholesterol/HDL Ratio 2.3 09/17/24 21:53: POC Glucose 126 H 09/17/24 22:09: PT 11.4, INR 1.03, APTT 22.8 09/17/24 23:41: Troponin I 0.11 H I & O for Last 24 hours: Intake & Output 09/15/24 09/16/24 09/17/24 09/18/24 11:59 11:59 11:59 11:59 Intake Total 6347.397 / 6347.397 Output Total 1295 / 1295 Balance 5052.397 / 5052.397 Weight 187 lb Constitutional Constitutional: no acute distress Comments: Patient is lethargic but does readily answer questions and is very appropriate. He does assist with exam. *Routine Respiratory Exam Respiratory: Present CTA bilaterally (Anteriorly and posteriorly) *Routine Cardiovascular Exam Cardiovascular: Present RRR (Monitor showing sinus rhythm in the 90s) *Routine Abdominal Exam Abdominal: Present soft and normoactive bowel sounds; Absent tenderness or distended *Routine Exam Patient deferred: penile exam (Henriquez catheter in place. No erythema, edema or drainage noted around the penis.) *Routine Extremities Exam Extremities: Present pallor and extremity cold to touch; Absent pulses intact or calf tenderness Comments: Dressings on bilateral feet with Chi wrapping. Wounds examined and dressings newly changed this a.m. By podiatry *Routine Skin Exam Skin: Present dry and pallor Comments: Cool to touch *Routine Neurological Exam Neurological: Present alert; Absent oriented X3 (Oriented x 2) Assessment and Plan *Assessment and plan (1) Septic shock: Status: Acute Category: Medical Code(s): A41.9 - Sepsis, unspecified organism; R65.21 - Severe sepsis with septic shock (2) Hypotension: Status: Acute Category: Medical Code(s): I95.9 - Hypotension, unspecified (3) Acute kidney injury: Status: Resolved Category: Medical Code(s): N17.9 - Acute kidney failure, unspecified (4) Diabetic ulcer of left foot: Status: Acute Qualifiers: Diabetic foot ulcer location: other Diabetes mellitus type: type 2 Non-pressure ulcer stage: with fat layer exposed Qualified Code(s): E11.621 - Type 2 diabetes mellitus with foot ulcer; L97.522 - Non-pressure chronic ulcer of other part of left foot with fat layer exposed Category: Medical Code(s): E11.621 - Type 2 diabetes mellitus with foot ulcer; L97.529 - Non-pressure chronic ulcer of other part of left foot with unspecified severity (5) Skin ulcer of right great toe: Status: Acute Qualifiers: Non-pressure ulcer stage: limited to breakdown of skin Qualified Code(s): L97.511 - Non-pressure chronic ulcer of other part of right foot limited to breakdown of skin Category: Medical Code(s): L97.519 - Non-pressure chronic ulcer of other part of right foot with unspecified severity (6) Diabetic ulcer of right foot: Problem Comment: Right 5th toe DFU probes to bone Status: Acute Qualifiers: Diabetes mellitus type: type 2 Diabetic foot ulcer location: other Non-pressure ulcer stage: with fat layer exposed Qualified Code(s): E11.621 - Type 2 diabetes mellitus with foot ulcer; L97.512 - Non-pressure chronic ulcer of other part of right foot with fat layer exposed Category: Medical Code(s): E11.621 - Type 2 diabetes mellitus with foot ulcer; L97.519 - Non-pressure chronic ulcer of other part of right foot with unspecified severity (7) Hypomagnesemia: Status: Acute Category: Medical Code(s): E83.42 - Hypomagnesemia (8) NSTEMI (non-ST elevated myocardial infarction): Status: Acute Category: Medical Code(s): I21.4 - Non-ST elevation (NSTEMI) myocardial infarction (9) Heart failure with reduced ejection fraction: Status: Acute Category: Medical Code(s): I50.20 - Unspecified systolic (congestive) heart failure (10) PAD (peripheral artery disease): Status: Acute Category: Medical Code(s): I73.9 - Peripheral vascular disease, unspecified (11) Diabetes mellitus: Status: Chronic Qualifiers: Diabetes mellitus complication status: without complication Diabetes mellitus custodial insulin use: without custodial use Diabetes mellitus type: type 2 Qualified Code(s): E11.9 - Type 2 diabetes mellitus without complications Category: Medical Code(s): E11.9 - Type 2 diabetes mellitus without complications (12) Diabetic foot: Status: Acute Category: Medical Code(s): E11.8 - Type 2 diabetes mellitus with unspecified complications (13) Status post amputation of left great toe: Problem Comment: Surgery, 08/01/24: s/p Right hallux and lateral ankle DFU wound debridement x2, Left 5th toe DFU wound debridement, Left foot irrigation and debridement, hallux amputation Status: Acute Category: Surgical Code(s): Z89.412 - Acquired absence of left great toe (14) Diabetes mellitus with diabetic neuropathy: Status: Acute Qualifiers: Diabetes mellitus type: type 2 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 Podiatry has seen patient and completed dressing changes of wounds in bilateral feet. X-rays planned for the left foot. Patient is also to be seen by cardiology. Will continue with Levophed at present to maintain adequate blood pressure. Further recommended stations per cardiology. Continue with vancomycin and piperacillin. \ Dr. Grissom entry - Saw patient, agree with above note. Continue broad spectrum antibiotics and Levophed, consults pending.
[2024-09-18] MEDS: DEFINITY US ECHO CONTRAST 2ML INJ 2 MG IV (08:18)
--- NOTE | 2024-09-18 08:19 | PC.NURSE ---
AM labs late r/t lab having difficulty drawing blood. Drawn from [facility] @ 0800 and sent to lab.
[2024-09-18 08:29] LABS: Alanine Aminotransferase 25 U/L (12-78); Albumin/Globulin Ratio 1.2 (1.1-1.8); Alkaline Phosphatase 88 U/L (38-126); Anion Gap 11.3 mEq/L (5-15); Aspartate Amino Transferase 40 U/L (17-59); Bilirubin,Total 0.6 mg/dl (0.2-1.3); Blood Urea Nitrogen 38 mg/dl (9-20); Calcium 7.9 mg/dl (8.4-10.2); Carbon Dioxide 21 mmol/L (22.0-30.0); Chloride 107 mmol/L (98-107); Creatinine Clearance Estimated 42 mL/min (50-200); Estimated Glomerular Filt Rate 31 ml/min (>60); GFR (African American) 37 ML/MIN (>60); Globulin 2.5 g/dL (1.3-3.2); Glucose 192 mg/dl (74-100); Lactic Acid 1.1 mmol/L (0.7-2.1); Magnesium 1.5 mg/dl (1.6-2.3); Phosphorous 3.7 mg/dl (2.5-4.5); Potassium 4.3 mmoL/L (3.5-5.1); Sodium 135 mmol/L (136-145); Total Protein,Serum 5.5 g/dl (6.3-8.2)
[2024-09-18 08:37] LABS: INR 0.97 (0.9-1.1); Prothrombin Time 10.8 seconds (10.1-12.5)
--- NOTE | 2024-09-18 09:09 | XR_ITS ---
FINAL REPORT CLINICAL HISTORY: L 5th toe DFU, r/o OM COMPARISON: 08/01/2024 FINDINGS: LEFT FOOT Three views of the left foot demonstrate prior amputation of the 1st digit. There is hammertoe deformity of the 2nd digit. There appears to be sclerosis or calcification over the dorsal aspect of the 2nd digit. There is no evidence of bony erosion of the 5th digit. There is no acute fracture or dislocation. The visualized joint spaces are normally aligned. Overlying soft tissue edema is noted of the 5th digit. IMPRESSION: Soft tissue edema of the 5th digit without evidence of bony erosion. Reviewed, Interpreted and Dictated by Hermes Zepeda MD Transcribed by Isaura Billy Authenticated and [facility]
[2024-09-18] MEDS: DOCUSATE SODIUM 10 ML/UDC UDC PO ×2 (09:17→20:06)
[2024-09-18] MEDS: MAGNESIUM SULFATE IN WATER 2 GM/50 ML PIGGYBACK IV (09:17)
[2024-09-18] MEDS: 0.9 % SODIUM CHLORIDE 1000ML 1,000 ML 75 ML IV (09:18)
[2024-09-18] MEDS: HEPARIN SODIUM 5,000 UNIT/ML VIAL 5000 UNIT SUBCUT ×3 (09:19→20:08)
--- NOTE | 2024-09-18 10:08 | P.CONS_ITS ---
History of Present Illness History of present illness: Mr. Mcdaniel is a 63-year-old male history of CAD, peripheral vascular disease, LV dysfunction poor nutritional status presented today with multiple complaints of decreased fluid intake generalized weakness nausea and vomiting. Patient is a never smoker. He denies any respiratory symptoms. Denies any cough or any productive phlegm. Never used any inhalers or oxygen. [facility] Disclaimer: The information contained in this section may have been updated after the patient was seen, as this information can be updated by other users. Medical History Frostbite Myocardial injury Atypical chest pain Nausea & vomiting Murmur Abnormal nuclear cardiac imaging test Coronary artery disease Nonhealing skin ulcer Abnormal echocardiogram E. coli UTI Fracture of fifth metatarsal bone of right foot Foot lesion Severe sepsis CHF (congestive heart failure) Abnormal ECG LV dysfunction Ischemic cardiomyopathy Coronary artery disease COVID-19 Gout Hypertension Hyperlipidemia Diabetes mellitus, type 2 Onychomycosis Onychodystrophy Acquired metatarsus varus Abrasion of foot, right Fracture of fourth metatarsal bone of right foot Vaccine counseling Immunization due Blister of foot without infection Surgical History S/P coronary artery stent placement Hx of heart artery stent History of cardiac cath History of tonsillectomy Family History Other Coronary artery disease Diabetes Hyperlipidemia Social History Smoking Status: Never smoker alcohol intake: never current occupational status: employed Travel in the last 8 weeks?: None Have you lived/traveled outside [place] in past 30 days?: No Contact w/someone who lives/traveled outside US past 30 days?: No Exposure to someone with infectious disease in past 14 days?: No Do you have a fever (greater than 100.4 F or 38 C)?: No Have you tested positive for COVID-19?: No Exposed to someone with COVID-19 in past 14 days?: No Do you have a sore throat?: No Do you have a cough?: No Do you have any weakness?: No Do you have any diarrhea?: No Are you experiencing any unusual bleeding?: No Do you have any muscle aches/pain?: No Do you have any abdominal pain?: No Are you experiencing loss of taste or smell?: No Review of Systems Constitutional Constitutional: Denies body ache(s) and Reports lethargy Eyes Eyes: Denies eye discharge, Denies dry eyes, Denies irritation and Denies itchy eyes ENT Ears, Nose, Mouth, and Throat: Denies epistaxis, Denies facial pain, Denies lip swelling and Denies throat swelling *Cardiovascular Cardiovascular: Denies dyspnea and Denies dyspnea on exertion *Respiratory Respiratory: Reports chest congestion, Reports cough, Denies dyspnea, Denies dyspnea on exertion, Reports excessive phlegm production and Reports wheezing *Gastrointestinal Gastrointestinal: Denies abdominal pain, Denies belching, Denies cramping, Reports nausea and Denies vomiting *Musculoskeletal Musculoskeletal: Reports back pain Psychiatric Psychiatric: Denies homicidal ideation and Denies suicidal ideation Endocrine Endocrine: Denies heat intolerance Hematologic/Lymphatic Hematologic/Lymphatic: Denies easy bleeding and Denies lymphadenopathy Allergic/Immunologic Allergic/Immunologic: Denies itchy eyes, Denies lip swelling, Denies throat swelling and Reports wheezing Pulmonology Exam Inpatient Vital signs and Labs for Last 24 Hours: Temp Pulse Resp BP Pulse Ox O2 Del Method O2 Flow Rate 98.3 F 97 H 16 110/59 L 100 Room Air 99 09/18/24 08:00 09/18/24 09:30 09/18/24 09:30 09/18/24 09:30 09/18/24 09:30 09/18/24 09:30 09/18/24 08:55 Laboratory Results - last 24 hr 09/17/24 16:26: VBG pH 7.30 L, VBG pCO2 42.7, VBG pO2 26.0 L, VBG HCO3 20.5 L, V BG Total CO2 21.8 L, VBG O2 Saturation 42.0 L, VBG Base Excess -5.9 L, VBG Lactic Acid 5.1 H 09/17/24 16:45: WBC 14.7 H, RBC 4.54 L, Hgb 13.4 L, Hct 41.6 L, MCV 91.6, MCH 29.5, MCHC 32.2, RDW 13.1, Plt Count 174, MPV 9.9, Neut % (Auto) 96.2 H, Lymph % (Auto) 0.7 L, [place] % (Auto) 2.2, Eos % (Auto) 0.3, Baso % (Auto) 0.1, Neut # (Auto) 14.1 H, Lymph # (Auto) 0.1 L, [place] # (Auto) 0.3, Eos # (Auto) 0.1, Baso # (Auto) 0.0, Total Counted 100, Neutrophils % (Manual) 90 H, Band Neutrophils % 8, Monocytes % (Manual) 2, Platelet Estimate Normal, RBC Morphology Normal, Sodium 137, Potassium 4.5, Chloride 101, Carbon Dioxide 23, Anion Gap 17.5 H, B UN 39 H, Creatinine 2.50 H, Estimated Creat Clear 39, Estimated GFR 26 L, Est GFR ( Amer) 32 L, Glucose 256 H, Calcium 9.5, Magnesium 1.3 L, Total Bilirubin 0.8, AST 45, ALT 34, Alkaline Phosphatase 97, Troponin I 0.13 H, C- Reactive Protein 298.7 H, NT-Pro-B Natriuret Pep 7900 H, Total Protein 6.8, Albumin 4.2, Globulin 2.6, Albumin/Globulin Ratio 1.6, Lipase 20 L, P rocalcitonin 24.5 H, TSH 1.43, Thyroxine (T4) 5.2 L, Acetone Level None detected 09/17/24 17:20: Lactate 3.9 H, Urine Color Yellow, Urine Appearance Clear, Urine pH 6.0, Ur Specific Jay Em 1.020, Urine Protein 2+ A, Urine Glucose (UA) 3+, Urine Ketones Trace, Urine Blood 2+ A, Urine Nitrate Negative, Urine Bilirubin 1+ A, Urine Urobilinogen 0.2, Ur Leukocyte Esterase Negative, Urine RBC None, Urine WBC Occasional, Ur Squamous Epith Cells None, Urine Bacteria 3+, Fine Granular Casts 3-5 09/17/24 19:33: Chlamy pneumoniae PCR Not detected, Adenovirus (PCR) Not detected, B. pertussis DNA (PCR) Not detected, Coronavirus OC43 (PCR) Not detected, Coronavirus HKU1 (PCR) Not detected, Coronavirus 229E (PCR) Not detected, SARS-CoV-2 (PCR) Not detected, Coronavirus NL63 (PCR) Not detected, Human Metapneumovir PCR Not detected, Influenza A (H1) PCR Not detected, Influ A (H1N1/09) PCR Not detected, Influenza A (H3) PCR Not detected, Influenza Type A (PCR) Not detected, Influenza Type B (PCR) Not detected, M. pneumoniae (PCR) Not detected, Parainfluenza 1 (PCR) Not detected, Parainfluenza 2 (PCR) Not detected, Parainfluenza 3 (PCR) Not detected, Parainfluenza 4 (PCR) Not detected, RSV (PCR) Not detected, Entero/Rhino (PCR) Not detected 09/17/24 21:38: Lactate 1.5, Troponin I 0.11 H, Triglycerides 147, Cholesterol 54 L, LDL Cholesterol Direct < 30.00 L, VLDL Cholesterol 29, HDL Cholesterol 23 L, Cholesterol/HDL Ratio 2.3 09/17/24 21:53: POC Glucose 126 H 09/17/24 22:09: PT 11.4, INR 1.03, APTT 22.8 09/17/24 23:41: Troponin I 0.11 H 09/18/24 08:00: PT 10.8, INR 0.97, Sodium 135 L, Potassium 4.3, Chloride 107, C arbon Dioxide 21 L, Anion Gap 11.3, BUN 38 H, Creatinine 2.20 H, Estimated Creat Clear 42, Estimated GFR 31 L, Est GFR ( Amer) 37 L, Glucose 192 H D, Lactate 1.1, Calcium 7.9 L, Phosphorus 3.7, Magnesium 1.5 L D, Total Bilirubin 0.6, AST 40, ALT 25 D, Alkaline Phosphatase 88, Total Protein 5.5 L, Albumin 3.0 L D, Globulin 2.5, Albumin/Globulin Ratio 1.2 I & O for Labs for Last 24 Hours: Intake & Output 09/15/24 09/16/24 09/17/24 09/18/24 23:59 23:59 23:59 23:59 Intake Total 3602.752 / 3602.752 2809.813 / 2809.813 Output Total 800 / 820 620 / 620 Balance 2802.752 / 2782.752 2189.813 / 2189.813 Weight 187 lb 187 lb Constitutional: Present moderate distress Head: Present normocephalic and atraumatic ENT: Present normal exam, normal oropharynx and mucous membranes moist Neck: Present normal inspection and full ROM Respiratory: Absent prolonged expiratory phase, respiratory distress, wheezes, crackles, diminished air movement or able to speak in complete sentences Cardiac: Present S1/S2, Tachycardia and radial pulses present GI: Present soft and distention; Absent tenderness or guarding Skin: Present intact; Absent cyanosis or jaundice Neuro: Present alert and awake; Absent oriented x 3 Comment:: LLE wound wrapped Extremities: Absent normal inspection, clubbing or cyanosis Psychiatric: Present cooperative; Absent normal affect Meds Home Medications and Allergies Home Medications ?Medication ?Instructions ?Recorded ?Confirmed ?Type allopurinol 300 mg tablet 300 mg PO DAILY 02/28/24 09/18/24 History amlodipine 5 mg tablet 5 mg PO DAILY 02/28/24 09/18/24 History aspirin 81 mg tablet,delayed 81 mg PO DAILY 02/28/24 09/18/24 History release carvedilol 3.125 mg tablet 3.125 mg PO BID 02/28/24 09/18/24 History clopidogrel 75 mg tablet 75 mg PO DAILY 02/28/24 09/18/24 History glimepiride 4 mg tablet 2 mg PO DAILY 02/28/24 09/18/24 History metformin 500 mg tablet 500 mg PO BID 02/28/24 09/18/24 History omeprazole 40 mg capsule,delayed 40 mg PO DAILY 02/28/24 09/18/24 History release sacubitril 24 mg-valsartan 26 mg 1 tab PO BID 02/28/24 09/18/24 History tablet (Entresto) vericiguat 10 mg tablet (Verquvo) 10 mg PO DAILY 02/28/24 09/18/24 History rosuvastatin 40 mg tablet (Crestor) 40 mg PO DAILY #90 tabs 07/23/24 09/18/24 Rx ertugliflozin 5 mg tablet 5 mg PO DAILY 09/18/24 09/18/24 History (Steglatro) spironolactone 25 mg tablet 25 mg PO DAILY 09/18/24 09/18/24 History New Prescriptions to Start Prescriptions: Allergies Allergy/AdvReac Type Severity Reaction Status Date / Time No Known Allergies Allergy Verified 09/06/24 10:35 Results Laboratory Findings 09/17/24 16:45 09/18/24 08:00 PT/INR, D-dimer PT 10.8 seconds (10.1-12.5) 09/18/24 08:00 INR 0.97 (0.9-1.1) 09/18/24 08:00 Abnormal lab findings: Abnormal Labs 09/17/24 09/17/24 09/17/24 16:26 16:45 17:20 WBC 14.7 H RBC 4.54 L Hgb 13.4 L Hct 41.6 L Neut % (Auto) 96.2 H Lymph % (Auto) 0.7 L Neut # (Auto) 14.1 H Lymph # (Auto) 0.1 L Neutrophils % (Manual) 90 H VBG pH 7.30 L VBG pO2 26.0 L VBG HCO3 20.5 L VBG Total CO2 21.8 L VBG O2 Saturation 42.0 L VBG Base Excess -5.9 L VBG Lactic Acid 5.1 H Sodium Carbon Dioxide Anion Gap 17.5 H BUN 39 H Creatinine 2.50 H Estimated GFR 26 L Est GFR ( Amer) 32 L Glucose 256 H POC Glucose Lactate 3.9 H Calcium Magnesium 1.3 L Troponin I 0.13 H C-Reactive Protein 298.7 H NT-Pro-B Natriuret Pep 7900 H Total Protein Albumin Cholesterol LDL Cholesterol Direct HDL Cholesterol Lipase 20 L Procalcitonin 24.5 H Thyroxine (T4) 5.2 L Urine Protein 2+ A Urine Blood 2+ A Urine Bilirubin 1+ A 09/17/24 09/17/24 09/17/24 21:38 21:53 23:41 WBC RBC Hgb Hct Neut % (Auto) Lymph % (Auto) Neut # (Auto) Lymph # (Auto) Neutrophils % (Manual) VBG pH VBG pO2 VBG HCO3 VBG Total CO2 VBG O2 Saturation VBG Base Excess VBG Lactic Acid Sodium Carbon Dioxide Anion Gap BUN Creatinine Estimated GFR Est GFR ( Amer) Glucose POC Glucose 126 H Lactate Calcium Magnesium Troponin I 0.11 H 0.11 H C-Reactive Protein NT-Pro-B Natriuret Pep Total Protein Albumin Cholesterol 54 L LDL Cholesterol Direct < 30.00 L HDL Cholesterol 23 L Lipase Procalcitonin Thyroxine (T4) Urine Protein Urine Blood Urine Bilirubin 09/18/24 08:00 WBC RBC Hgb Hct Neut % (Auto) Lymph % (Auto) Neut # (Auto) Lymph # (Auto) Neutrophils % (Manual) VBG pH VBG pO2 VBG HCO3 VBG Total CO2 VBG O2 Saturation VBG Base Excess VBG Lactic Acid Sodium 135 L Carbon Dioxide 21 L Anion Gap BUN 38 H Creatinine 2.20 H Estimated GFR 31 L Est GFR ( Amer) 37 L Glucose 192 H D POC Glucose Lactate Calcium 7.9 L Magnesium 1.5 L D Troponin I C-Reactive Protein NT-Pro-B Natriuret Pep Total Protein 5.5 L Albumin 3.0 L D Cholesterol LDL Cholesterol Direct HDL Cholesterol Lipase Procalcitonin Thyroxine (T4) Urine Protein Urine Blood Urine Bilirubin Assessment and Plan *Assessment and plan (1) Septic shock: Status: Acute Category: Medical Code(s): A41.9 - Sepsis, unspecified organism; R65.21 - Severe sepsis with septic shock Plan Mr. Mcdaniel is a 63-year-old male history of CAD, peripheral vascular disease, LV dysfunction poor nutritional status presented today with multiple complaints of decreased fluid intake generalized weakness nausea and vomiting. Patient is a never smoker. He denies any respiratory symptoms. Denies any cough or any productive phlegm. Never used any inhalers or oxygen. History of osteomyelitis with recent wound culture growing Klebsiella and Proteus and Enterococcus Afebrile. Hemodynamically unstable needing pressor support. Neutrophilic predominant leukocytosis. CTA PE upon admission, no pulmonary embolism. No dense consolidative/airspace changes. No pleural effusions. No evidence of volume overload. Right lower lobe lung nodule with central calcification noted. Echocardiogram grade 1 LV diastolic dysfunction, EF 45-50%. RV size and function normal On examination chest clear to auscultate. No respiratory distress noted. Saturating 100% on room air. Continue to receive norepinephrine at 15 mcg, repeat venous blood gas showed improving lactic acid at 1.8. Continue to show metabolic acidosis likely from renal dysfunction. Received adequate fluid resuscitation, 4 L since admission. Will hold off on any additional fluids Plan:- Continue vasopressor support with with MAP goal of 65 and above Will hold off on additional fluids at this point of time Continue vancomycin and Zosyn pending blood and wound culture results. Renally dose medications DuoNebs 4 times daily as needed
[2024-09-18 10:40] LABS: Lactate Venous 1.8 mmol/L (0.4-2.0); VBG Base Excess -7.4 mmol/L (-2.4-2.3); VBG HCO3 19.3 mmol/L (23-30); VBG Oxygen Saturation 94.1 % (50-70); VBG PCO2 41.9 mmol/L (35-51); VBG PH 7.28 mmol/L (7.31-7.41); VBG PO2 77.8 mmol/L (28-40); VBG Total CO2 20.6 mmol/L (23-27)
[2024-09-18 11:14] LABS: POC Glucose,Bedside 164 (70-110)
--- NOTE | 2024-09-18 11:23 | HMH.PTEV ---
Physical Therapy Evaluation Rehab PT IP Evaluation Start: 09/18/24 10:44 Freq: ONCE Status: Active Protocol: Document 09/18/24 10:56 FREDDIE (Rec: 09/18/24 11:23 FREDDIE [id number]) Subjective/History History History Per H&P: 63-year-old admitted with septic shock as evidenced by hypoperfusion via positive lactate and endorgan damage including acute kidney injury and NSTEMI. Current suspected source is right foot given his cool foot with diminished pulses and open active wound. Will consult podiatry. There is initial concern for fluid resuscitation given his LV dysfunction history however the current echo performed by myself demonstrates hypovolemia and adequate cardiac output. Formal echo in the morning. Will continue IV fluids and Levophed support. Will consult ICU and cardiology for additional evaluation. Subjective Subjective Per Podiatry consult note, pt is PWB BLE with post-op shoes and RW. PLOF: IND with RW Home: Lives alone in single- story rented home. Available family or friend assistance: None available per pt. New diagnosis of cancer in past 12 No months? [facility] How much help from another person do you currently need... Turning from your back to your side A little while in a flat bed without using bedrails? Moving from lying on back to sitting on A little the side of a flat bed without using bedrails? Moving to and from a bed to a chair ( A lot including a wheelchair)? Standing up from a chair using your arms A lot ? (e.g., wheelchair, bedside chair) Walking in hospital room? A lot Climbing 3-5 steps with a railing? A lot Mobility Score 14 Mobility Level [facility] Mobility Calculator Mobility 4 Move to chair/ commode Rehab PT IP Eval Objective Appearance Patient Behavior Appropriate,Cooperative Patient Orientation Person,Situation Difficulty following instructions none Speech Pattern Clear Ambulation Patient Able to Ambulate No Balance Ability to Arise Able, uses arms to help Sitting Balance Steady, safe Standing Balance Unsteady Transfers Sit to Stand Bed Transfer Ability Moderate x 1 (50% assist) Rehab PT IP prob,goals,plan Problems Date of Evaluation: 09/18/24 PT IP Problems Bed Mobility,Transfers,Gait, Balance,Self care,Safety Rehab Potential Rehab Potential Good Plan PT Intervention Plan Bed Mobility,Transfers,Gait, Balance,Self care,Safety, Therapeutic Exercise Other Intervention Plan 1-2 times PT Plan Frequency Daily Duration LOS Discharge Goals Bed Transfer Ability Minimal x 1 (25% assist) Sit to Stand Chair Transfer Ability Minimal x 1 (25% assist) Discharge Plan PT Discharge Plan Initial physical therapy evaluation performed. Patient presents below baseline at this time in functional mobility, transfers, and strength. Pt not safe to return home at this time d/t current level of functional mobility. PT recommending short-term rehabilitation stay upon d/c from [facility]. Pt would benefit from skilled PT while at [facility] to prevent further functional decline and maximize safety with mobility. Eval Complexity Eval Charge Codes 44944 - Moderate Complexity PHYSICIAN CERTIFICATION: I certify the specified therapy services for Sunday Talbot are required, authorized, and reviewed every 30 days.
--- NOTE | 2024-09-18 11:35 | HMH.OTEV ---
OT Inpatient Evaluation Rehab OT IP Evaluation Start: 09/18/24 10:44 Freq: ONCE Status: Active Protocol: Document 09/18/24 11:26 EMELIA (Rec: 09/18/24 11:34 EMELIA [id number]) Rehab OT IP Assessment Subjective History Per H&P: 63-year-old admitted with septic shock as evidenced by hypoperfusion via positive lactate and endorgan damage including acute kidney injury and NSTEMI. Current suspected source is right foot given his cool foot with diminished pulses and open active wound. Will consult podiatry. There is initial concern for fluid resuscitation given his LV dysfunction history however the current echo performed by myself demonstrates hypovolemia and adequate cardiac output. Formal echo in the morning. Will continue IV fluids and Levophed support. Will consult ICU and cardiology for additional evaluation. Subjective No. Pt was sitting in chair when therapy entered room. Pt was orient x3. pt reproted they lived alone in a rental. Pt reported mx sets of stairs and with handrails. pt reported they are ind in ADLs and IADLs . Pt reported they do not drive. pt reported they do not have anyone to come and assist pt. pt reported they have no shower chair and no grab bars. pt reported they are able to cook own food. pt reported they use a walker at home. pt agreed to complete a sit to stand transfer with walker. Pt mod x 1 for sit to stand transfer with walker. pt demo poor activity tolerance and poor static standing balance. pt sat back down after aprox 1 min. pt left with call light and all other needs within reach. Objective Patient Orientation Person,Place,Birthday Right Upper Extremity Gross ROM WFL Left Upper Extremity Gross ROM WFL Transfer Training Sit/Stand Transfer Assist Level Moderate x 1 (50% assist) Chair Transfer Ability Moderate x 1 (50% assist) Chair Transfer Technique Sit to/from Ambulatory Chair Transfer Assistive Devices Standard Walker Decrease in Endurance Yes Rehab OT IP prob,goals,plan Problems Date of Evaluation: 09/18/24 OT IP Problems Bed Mobility,Transfers,Balance ,Self care,Safety Rehab Potential Rehab Potential Good Equipment Needs Assistive Devices Standard Walker Plan OT intervention Plan Bed Mobility,Transfers,Balance ,Self care,Safety,Therapeutic Exercise OT Plan Frequency Daily Duration LOS Discharge Goals Sit to Stand Chair Transfer Ability Minimal x 1 (25% assist) Chair Transfer Ability Minimal x 1 (25% assist) Chair Transfer Technique Sit to/from Ambulatory Chair Transfer Assistive Devices Standard Walker Feeding Ability Assist with Tray Set Up Commode/Toilet Transfer Assistive Raised Toilet Seat,Grab Bars Devices Decrease in Endurance No Discharge Plan OT Discharge Plan At this time, pt would benefit from skilled OT services and interventions while admitted at [facility] to address functional limitations in occupational performance. Once DC from [facility], pt would benefit from skilled OT services and interventions for Rehab to address functional limitations in occupational performance due to poor safety, poor activity tolerance, and poor strength. Eval Complexity Eval Charge Codes 11562 - Moderate Complexity PHYSICIAN CERTIFICATION: I certify the specified therapy services for Sunday Talbot are required, authorized, and reviewed every 30 days.
--- NOTE | 2024-09-18 13:01 | CT_ITS ---
FINAL REPORT TECHNIQUE: Thin section axial CT images with coronal and sagittal reformats were performed. This study was performed with techniques to keep radiation doses as low as reasonably achievable (ALARA). Individualized dose reduction techniques using automated exposure control or adjustment of mA and/or kV according to the patient''s size were employed. CLINICAL HISTORY: L 5th toe DFU, OM, L 1st met cortical erosions FINDINGS: There is marked hypertrophic osteophyte formation along the dorsal aspect of the intertarsal joints consistent with advanced osteoarthritis. There is degenerative osteochondral defect in the lateral talar dome. Small intra-articular loose body are identified in the medial mortise measuring 3 mm. There has been amputation of the first digit with overlying soft tissue edema. There is fragmentation of the second distal phalange which may be due to old trauma. There is no evidence of bony erosion or periosteal reaction of the fifth digit. IMPRESSION: Marked hypertrophic changes of osteoarthritis of the dorsal intertarsal joints. Osteochondral defect of the lateral talar dome. Prior amputation of the first digit with overlying soft tissue edema. Small intra-articular loose body as above. Reviewed, Interpreted and Dictated by Hermes Zepeda MD Transcribed by Mariana Anna Authenticated and [facility]
--- NOTE | 2024-09-18 13:31 | P.CONCA_ITS ---
History of Present Illness History of Present Illness Consult date: 09/18/24 Requesting physician: Willy Grissom Chief complaint: Nausea and vomiting History of present illness: This is a 63-year-old white gentleman who presented to the emergency department with nausea and vomiting. He states he had several days of poor oral intake and generalized weakness and malaise. He states that he just did not feel very well all weekend and decided to come into the emergency department on Tuesday. He denies any chest pain or pressure. He denies any shortness of breath or edema. He denied any fever or chills. He also denied any diarrhea PND or orthopnea. The patient does have a lesion to his right foot. He states that this is not painful but he has been having it treated for a while. Upon arrival to the emergency department he was found to have a lactate of 4 as well as an elevated troponin consistent with a non-STEMI and an CRISTEL. He was treated with a 1 L fluid bolus. Given his extensive cardiac history and LV dysfunction he was not given any more fluids at that time. The patient does have known HFrEF with an ejection fraction of 45%. He also has severe three-vessel coronary artery disease with stenting to his right coronary artery, circumflex artery, LAD and first obtuse marginal artery in January 2024. He states since being in the hospital he feels a little bit better but still has a lot of fatigue and malaise and just overall does not feel well. [facility] Disclaimer: The information contained in this section may have been updated after the patient was seen, as this information can be updated by other users. Medical History (Updated 09/18/24 @ 14:08 by Chastity Francisco APRN) Atrial fibrillation Nausea & vomiting Abnormal echocardiogram Ischemic cardiomyopathy Coronary artery disease Hypertension Hyperlipidemia Chronic HFrEF (heart failure with reduced ejection fraction) NSTEMI (non-ST elevated myocardial infarction) Frostbite Myocardial injury Atypical chest pain Murmur Abnormal nuclear cardiac imaging test Nonhealing skin ulcer E. coli UTI Fracture of fifth metatarsal bone of right foot Foot lesion Severe sepsis CHF (congestive heart failure) Abnormal ECG LV dysfunction Coronary artery disease COVID-19 Gout Diabetes mellitus, type 2 Onychomycosis Onychodystrophy Acquired metatarsus varus Abrasion of foot, right Fracture of fourth metatarsal bone of right foot Vaccine counseling Immunization due Blister of foot without infection Surgical History S/P coronary artery stent placement Hx of heart artery stent History of cardiac cath History of tonsillectomy Family History Other Coronary artery disease Diabetes Hyperlipidemia Social History Smoking Status: Never smoker alcohol intake: never current occupational status: employed Travel in the last 8 weeks?: None Have you lived/traveled outside [place] in past 30 days?: No Contact w/someone who lives/traveled outside US past 30 days?: No Exposure to someone with infectious disease in past 14 days?: No Do you have a fever (greater than 100.4 F or 38 C)?: No Have you tested positive for COVID-19?: No Exposed to someone with COVID-19 in past 14 days?: No Do you have a sore throat?: No Do you have a cough?: No Do you have any weakness?: No Do you have any diarrhea?: No Are you experiencing any unusual bleeding?: No Do you have any muscle aches/pain?: No Do you have any abdominal pain?: No Are you experiencing loss of taste or smell?: No Review of Systems Review of Systems Review of systems:: pertinent systems reviewed and negative unless documented below Constitutional Constitutional: Reports system reviewed and no additional complaints, except as documented, Reports fatigue, Reports poor appetite, Reports lethargy, Reports malaise and Reports weakness Eyes Eyes: Reports system reviewed and no additional complaints, except as documented ENT Ears, Nose, Mouth, and Throat: Reports system reviewed and no additional complaints, except as documented *Cardiovascular Cardiovascular: Reports system reviewed and no additional complaints, except as documented, Denies chest pain and Denies dyspnea *Respiratory Respiratory: Reports system reviewed and no additional complaints, except as documented and Denies dyspnea *Gastrointestinal Gastrointestinal: Reports system reviewed and no additional complaints, except as documented, Reports nausea and Reports vomiting *Genitourinary Genitourinary: Reports system reviewed and no additional complaints, except as documented *Musculoskeletal Musculoskeletal: Reports system reviewed and no additional complaints, except as documented Integumentary/Breasts Skin/Breast: Reports system reviewed and no additional complaints, except as documented and Reports lesions (To the right foot) *Neurologic Neurologic: Reports system reviewed and no additional complaints, except as documented and Reports weakness Psychiatric Psychiatric: Reports system reviewed and no additional complaints, except as documented Endocrine Endocrine: Reports system reviewed and no additional complaints, except as documented and Reports fatigue Hematologic/Lymphatic Hematologic/Lymphatic: Reports system reviewed and no additional complaints, except as documented Allergic/Immunologic Allergic/Immunologic: Reports system reviewed and no additional complaints, except as documented Exam Data for Last 24 hours Vital signs and Labs for Last 24 Hours: Temp Pulse Resp BP Pulse Ox O2 Del Method O2 Flow Rate 98.2 F 89 15 105/63 L 100 Room Air 99 09/18/24 11:54 09/18/24 12:30 09/18/24 12:30 09/18/24 12:30 09/18/24 12:30 09/18/24 12:44 09/18/24 08:55 Laboratory Results - last 24 hr 09/17/24 16:26: VBG pH 7.30 L, VBG pCO2 42.7, VBG pO2 26.0 L, VBG HCO3 20.5 L, VBG Total CO2 21.8 L, VBG O2 Saturation 42.0 L, VBG Base Excess -5.9 L, VBG Lactic Acid 5.1 H 09/17/24 16:45: WBC 14.7 H, RBC 4.54 L, Hgb 13.4 L, Hct 41.6 L, MCV 91.6, MCH 29.5, MCHC 32.2, RDW 13.1, Plt Count 174, MPV 9.9, Neut % (Auto) 96.2 H, Lymph % (Auto) 0.7 L, [place] % (Auto) 2.2, Eos % (Auto) 0.3, Baso % (Auto) 0.1, Neut # (Auto) 14.1 H, Lymph # (Auto) 0.1 L, [place] # (Auto) 0.3, Eos # (Auto) 0.1, Baso # (Auto) 0.0, Total Counted 100, Neutrophils % (Manual) 90 H, Band Neutrophils % 8, Monocytes % (Manual) 2, Platelet Estimate Normal, RBC Morphology Normal, Sodium 137, Potassium 4.5, Chloride 101, Carbon Dioxide 23, Anion Gap 17.5 H, BUN 39 H, Creatinine 2.50 H, Estimated Creat Clear 39, Estimated GFR 26 L, Est GFR ( Amer) 32 L, Glucose 256 H, Calcium 9.5, Magnesium 1.3 L, Total Bilirubin 0.8, AST 45, ALT 34, Alkaline Phosphatase 97, Troponin I 0.13 H, C- Reactive Protein 298.7 H, NT-Pro-B Natriuret Pep 7900 H, Total Protein 6.8, Albumin 4.2, Globulin 2.6, Albumin/Globulin Ratio 1.6, Lipase 20 L, Procalcitonin 24.5 H, TSH 1.43, Thyroxine (T4) 5.2 L, Acetone Level None detected 09/17/24 17:20: Lactate 3.9 H, Urine Color Yellow, Urine Appearance Clear, Urine pH 6.0, Ur Specific [place] 1.020, Urine Protein 2+ A, Urine Glucose (UA) 3+, Urine Ketones Trace, Urine Blood 2+ A, Urine Nitrate Negative, Urine Bilirubin 1+ A, Urine Urobilinogen 0.2, Ur Leukocyte Esterase Negative, Urine RBC None, Urine WBC Occasional, Ur Squamous Epith Cells None, Urine Bacteria 3+, Fine Granular Casts 3-5 09/17/24 19:33: Chlamy pneumoniae PCR Not detected, Adenovirus (PCR) Not detected, B. pertussis DNA (PCR) Not detected, Coronavirus OC43 (PCR) Not detected, Coronavirus HKU1 (PCR) Not detected, Coronavirus 229E (PCR) Not detected, SARS-CoV-2 (PCR) Not detected, Coronavirus NL63 (PCR) Not detected, Human Metapneumovir PCR Not detected, Influenza A (H1) PCR Not detected, Influ A (H1N1/09) PCR Not detected, Influenza A (H3) PCR Not detected, Influenza Type A (PCR) Not detected, Influenza Type B (PCR) Not detected, M. pneumoniae (PCR) Not detected, Parainfluenza 1 (PCR) Not detected, Parainfluenza 2 (PCR) Not detected, Parainfluenza 3 (PCR) Not detected, Parainfluenza 4 (PCR) Not detected, RSV (PCR) Not detected, Entero/Rhino (PCR) Not detected 09/17/24 21:38: Lactate 1.5, Troponin I 0.11 H, Triglycerides 147, Cholesterol 54 L, LDL Cholesterol Direct < 30.00 L, VLDL Cholesterol 29, HDL Cholesterol 23 L, Cholesterol/HDL Ratio 2.3 09/17/24 21:53: POC Glucose 126 H 09/17/24 22:09: PT 11.4, INR 1.03, APTT 22.8 09/17/24 23:41: Troponin I 0.11 H 09/18/24 08:00: PT 10.8, INR 0.97, Sodium 135 L, Potassium 4.3, Chloride 107, Carbon Dioxide 21 L, Anion Gap 11.3, BUN 38 H, Creatinine 2.20 H, Estimated Creat Clear 42, Estimated GFR 31 L, Est GFR ( Amer) 37 L, Glucose 192 H D , Lactate 1.1, Calcium 7.9 L, Phosphorus 3.7, Magnesium 1.5 L D, Total Bilirubin 0.6, AST 40, ALT 25 D, Alkaline Phosphatase 88, Total Protein 5.5 L, Albumin 3.0 L D, Globulin 2.5, Albumin/Globulin Ratio 1.2 09/18/24 10:30: VBG pH 7.28 L, VBG pCO2 41.9, VBG pO2 77.8 H, VBG HCO3 19.3 L, VBG Total CO2 20.6 L, VBG O2 Saturation 94.1 H, VBG Base Excess -7.4 L, VBG Lactic Acid 1.8 09/18/24 11:07: POC Glucose 164 H I & O for Last 24 hours: Intake & Output 09/15/24 09/16/24 09/17/24 09/18/24 23:59 23:59 23:59 23:59 Intake Total 3602.752 / 3602.752 3379.017 / 3379.017 Output Total 800 / 820 1770 / 1770 Balance 2802.752 / 2782.752 1609.017 / 1609.017 Weight 187 lb 187 lb Constitutional Constitutional: no acute distress and average body habitus *Routine HEENT Exam Head: Present normocephalic and atraumatic ENT: Present mucous membranes moist *Routine Neck Exam Neck: Present supple, full ROM and normal carotid upstroke; Absent JVD, carotid bruit or lymphadenopathy *Routine Respiratory Exam Respiratory: Present CTA bilaterally, normal respiratory effort, able to speak in complete sentences and symmetric chest movement *Routine Cardiovascular Exam Cardiovascular: Present RRR, Normal S1 and Normal S2; Absent murmur or gallop *Routine Abdominal Exam Abdominal: Present soft and normoactive bowel sounds; Absent tenderness, distended or organomegaly *Routine Extremities Exam Extremities: Present full ROM, pulses intact and normal capillary refill; Absent cyanosis, clubbing or edema *Routine Skin Exam Skin: Present warm and wounds (To the right foot); Absent erythema *Routine Neurological Exam Neurological: Present alert, oriented X3 and CN II-XII intact; Absent sensory deficit or motor deficit Routine Psychiatric Exam Psychiatric: Present normal affect Meds Home Medications and Allergies Home Medications ?Medication ?Instructions ?Recorded ?Confirmed ?Type allopurinol 300 mg tablet 300 mg PO DAILY 02/28/24 09/18/24 History amlodipine 5 mg tablet 5 mg PO DAILY 02/28/24 09/18/24 History aspirin 81 mg tablet,delayed 81 mg PO DAILY 02/28/24 09/18/24 History release carvedilol 3.125 mg tablet 3.125 mg PO BID 02/28/24 09/18/24 History clopidogrel 75 mg tablet 75 mg PO DAILY 02/28/24 09/18/24 History glimepiride 4 mg tablet 2 mg PO DAILY 02/28/24 09/18/24 History metformin 500 mg tablet 500 mg PO BID 02/28/24 09/18/24 History omeprazole 40 mg capsule,delayed 40 mg PO DAILY 02/28/24 09/18/24 History release sacubitril 24 mg-valsartan 26 mg 1 tab PO BID 02/28/24 09/18/24 History tablet (Entresto) vericiguat 10 mg tablet (Verquvo) 10 mg PO DAILY 02/28/24 09/18/24 History rosuvastatin 40 mg tablet (Crestor) 40 mg PO DAILY #90 tabs 07/23/24 09/18/24 Rx ertugliflozin 5 mg tablet 5 mg PO DAILY 09/18/24 09/18/24 History (Steglatro) spironolactone 25 mg tablet 25 mg PO DAILY 09/18/24 09/18/24 History New Prescriptions to Start Prescriptions: Allergies Allergy/AdvReac Type Severity Reaction Status Date / Time No Known Allergies Allergy Verified 09/06/24 10:35 Assessment and Plan *Assessment and plan (1) NSTEMI (non-ST elevated myocardial infarction): Status: Acute Category: Medical Code(s): I21.4 - Non-ST elevation (NSTEMI) myocardial infarction (2) Severe sepsis with septic shock: Status: Acute Category: Medical Code(s): A41.9 - Sepsis, unspecified organism; R65.21 - Severe sepsis with septic shock (3) Hypotension: Status: Acute Qualifiers: Hypotension type: hypotension due to hypovolemia Qualified Code(s): E86.1 - Hypovolemia Category: Medical Code(s): I95.9 - Hypotension, unspecified (4) Abnormal echocardiogram: Status: Acute Category: Medical Code(s): R93.1 - Abnormal findings on diagnostic imaging of heart and coronary circulation (5) Chronic HFrEF (heart failure with reduced ejection fraction): Status: Acute Category: Medical Code(s): I50.22 - Chronic systolic (congestive) heart failure (6) Coronary artery disease: Status: Acute Qualifiers: Associated angina: without angina Coronary Disease-Associated Artery/Lesion type: [place] artery [place] vs. transplanted heart: [place] heart Qualified Code(s): I25.10 - Atherosclerotic heart disease of [place] coronary artery without angina pectoris Category: Medical Code(s): I25.10 - Atherosclerotic heart disease of [place] coronary artery without angina pectoris (7) Ischemic cardiomyopathy: Status: Acute Category: Medical Code(s): I25.5 - Ischemic cardiomyopathy (8) Diabetes mellitus, type 2: Status: Acute Qualifiers: Diabetes mellitus complication detail: with peripheral angiopathy without gangrene Diabetes mellitus complication status: with circulatory complication Diabetes mellitus prison insulin use: without termite control servicer use Qualified Code(s): E11.51 - Type 2 diabetes mellitus with diabetic peripheral angiopathy without gangrene Category: Medical Code(s): E11.9 - Type 2 diabetes mellitus without complications (9) PAD (peripheral artery disease): Status: Acute Category: Medical Code(s): I73.9 - Peripheral vascular disease, unspecified (10) Hypertension: Status: Acute Qualifiers: Hypertension type: unspecified Qualified Code(s): I10 - Essential (primary) hypertension Category: Medical Code(s): I10 - Essential (primary) hypertension (11) Hyperlipidemia: Status: Acute Qualifiers: Hyperlipidemia type: unspecified Qualified Code(s): E78.5 - Hyperlipidemia, unspecified Category: Medical Code(s): E78.5 - Hyperlipidemia, unspecified (12) Nausea & vomiting: Status: Acute Qualifiers: Vomiting type: unspecified Qualified Code(s): R11.2 - Nausea with vomiting, unspecified Category: Medical Code(s): R11.2 - Nausea with vomiting, unspecified (13) Atrial fibrillation: Status: Acute Qualifiers: Atrial fibrillation type: paroxysmal Qualified Code(s): I48.0 - Paroxysmal atrial fibrillation Category: Medical Code(s): I48.91 - Unspecified atrial fibrillation Plan Plan: 1. The patient presented to the emergency department complaints of nausea and vomiting. He was found to have an CRISTEL, non-STEMI and elevated lactate with sepsis. The patient was treated with a liter fluid bolus and then subsequently admitted to the hospital. Antibiotics have been initiated due to to his sepsis. Will defer this to the hospitalist. 2. The patient was hypotensive upon arrival he has been started on a norepinephrine drip. He remains on this drip today with a blood pressure in the 90s over 60s. We do want to try to wean his drip off as soon as we can. 3. The patient does have an elevated troponin consistent with a non-STEMI. He has known severe three-vessel disease status post stenting. Echocardiogram on this admission shows inferior and inferior septal wall motion abnormalities which are new. He will need to undergo a left cardiac catheterization during this hospitalization once his CRISTEL has improved and his creatinine is approaching back to his baseline of 1. 4. Coronary artery disease is present. He will need left cardiac catheterization as mentioned above. Continue aspirin and Plavix for dual antiplatelet therapy. 5. His echocardiogram continues to show LV wall thickness. He will need a cardiac MRI on an outpatient basis. 6. His blood pressure is being maintained on a norepinephrine drip at this [facility]. 7. His LDL goal is less than 55. His LDL is less than 30. He is on a statin. 8. The patient did have an acute kidney injury on admission. His creatinine was up to 2.5. Creatinine is down to 2.2 today. His baseline is 1.0. 9. The patient's BNP was 7900 on admission. He does have acute on chronic HFrEF. 10. The patient does have a right foot wound. Recommend podiatry consult. ALVARO is normal. 11. All heart failure medications are being held at this time due to to his hypotension and being on a norepinephrine drip. Continue to hold spironolactone, Entresto, carvedilol, and verquvo. Amlodipine needs to be discontinued due to his HFrEF. 12. The patient was in atrial fibrillation on admission. He is currently rate controlled. If he gets more tachycardic then we may have to reinitiate his beta-eitan for rate control. 13. The patient is currently on heparin for anticoagulation. He will need to be switched over to oral Eliquis prior to discharge home. 14. Further recommendations will be made pending the patient's response to treatment. Thank you for the opportunity to help participate in the care of this patient. All recommendations and orders are per Dr. Martínez.
[2024-09-18] MEDS: NOREPINEPHRINE BITARTRATE/D5W 8 MG/250 ML PLAST..BAG 28.13 MG IV (15:35)
[2024-09-18 16:15] LABS: POC Glucose,Bedside 313 (70-110)
[2024-09-18 16:15] LABS: POC Glucose,Bedside 202 (70-110)
--- NOTE | 2024-09-18 16:15 | PC.NURSE ---
Primary RN called 's office at this time. Primary RN notified office of one blood culture positive for Cocci Pairs. Primary RN also states patients blood sugar is 313 and there is no insulin ordered on JUN. Primary RN spoke with Shena. Shena stated I will send this message over to his Nurse. Continuation of care plan.
[2024-09-18] MEDS: ONDANSETRON 4MG/2ML VIAL 4 MG IV (20:06)
[2024-09-18] MEDS: PANTOPRAZOLE 40MG TABLET 40 MG PO (20:08)
[2024-09-18] MEDS: VANCOMYCIN/WATER FOR INJ (PEG) 1.25 GM/250 ML PIGGYBACK IV (20:09)
--- NOTE | 2024-09-18 20:17 | CA_ITS ---
APPROVED REPORT EXAM: Comprehensive 2D, Doppler, and color-flow Echocardiogram with contrast Livestock Auctioneer: Shena Hayden RT(R) Ht: 5 ft 10 in Wt: 195lbs BSA: 2.07 BP: 92/60 mmHg Indications: heart failure, HTN, hyperlipidemia, DM, CAD, stents x 5, NSTEMI, PAD, right and left foot lesions Echo Enhancing Agent Indication: Endocardial border delineation Agent(s) / Amount(s) Used: Definity 2 cc 2D Dimensions Aortic Root 2.02 cm M: 3.1 - 3.7 LA Volume 33.90 mL Left Atrium 2.99 cm M: 3.0 - 4.0 LA Volume Index 16.38 mL/m2 (M/F) 16-34 EF AP4 43.60 % GL Strain -17.7 % M-Mode Dimensions RVDd 3.21 cm (0.9-2.6) LVDd 5.29 cm (3.5-5.7) Ao Diam 2.95 cm (2.0-3.7) LVDs 4.37 cm (3.5-5.7) IVSd 1.00 cm (0.6-1.1) PWd 1.08 cm (0.6-1.1) EF (Teich) 36.00% FS 17.40% EDV (Teich) 134.80 mL ESV (Teich) 86.30 mL LV Diastology E Decel Time 150 (160-240 msec) E/A Ratio 0.7 MED E' 5.3 (>= 7 cm/sec) E'/MED E' Ratio 15.15 (<= 14) LAT E' 7.6 (>= 10 cm/sec) E/LAT E' Ratio 10.57 (<= 14) Mitral Valve MV E Max [place]. 80.0 (40-130 cm/s) MV A Velocity 108.0 (40-130 cm/s) E/A Ratio 0.74 MV Decel. Time 150 (160-240 ms) Left Ventricle The left ventricle is normal size. The left ventricular systolic function is mildly reduced. There is marked increase of wall thickness. IVSD is 1.4 cm in the proxima septal l LV wall. There is mild global hypokinesis present. There is moderate hypokinesis of the septal and inferoseptal LV sargent. Grade 1 diastolic dysfunction is present. LVEF is 45-50%. Right Ventricle The right ventricle is normal size. The right ventricular systolic function is normal. Atria The left atrium size is normal. The right atrium size is normal. There is no Doppler evidence of interatrial shunt. Aortic Valve The aortic valve is mildly thickened. Trace aortic regurgitation. There is no aortic valvular stenosis. Mitral Valve The mitral valve is mildly thickened. No evidence of mitral valve stenosis. Trace mitral regurgitation. Tricuspid Valve The tricuspid valve leaflets are thin and pliable. Trace tricuspid regurgitation. There is insufficient TR jet to estimate RVSP. Pulmonic Valve The pulmonary valve is normal in structure. Trace pulmonic regurgitation. Great Vessels The aortic root is normal in size. IVC is normal in size and collapses >50% with inspiration. Pericardium There is no pericardial effusion. Other Information Study Quality: Fair Conclusion Mildly reduced LV systolic function (LVEF 45-50%). Moderate hypokinesis of the septal and inferoseptal LV sargent. No significant valvular stenosis or regurgitation. Electronically signed by : Padmini Martínez MD 09/18/2024 11:05:58
--- NOTE | 2024-09-18 20:17 | US_ITS ---
FINAL REPORT CLINICAL HISTORY: lower extremity ulcer, Left great toe amputation, Right ankle wound, DM, HLH, Hypotensive, Septic , CKD, PAD, CAD FINDINGS: ANKLE-BRACHIAL PRESSURE INDICES Pressure indices are as follows: RIGHT LOWER EXTREMITY: Ankle-brachial pressure index: 1.64 Comments: Normal LEFT LOWER EXTREMITY: Ankle-brachial pressure index: 1.67 Comments: Normal IMPRESSION: No evidence of significant obstructive peripheral vascular disease of the lower extremities Reviewed, Interpreted and Dictated by Hermes Zepeda MD Transcribed by Isaura Billy Authenticated and [facility]
[2024-09-18 20:48] LABS: POC Glucose,Bedside 245 (70-110)
[2024-09-18] MEDS: humaLOG 100 UNITS/ML 10ML VIAL (SSI) SUBCUT (21:54)
[2024-09-19] VITALS (73 sets, daily range): BP systolic 69–162; BP diastolic 39–112; PULSE 52–111; RESP 15–26; TEMP 36.7–37.3; O2SAT 90–100; BMI 28.3
[2024-09-19] MEDS: ONDANSETRON 4MG/2ML VIAL 4 MG IV ×2 (02:17→08:18)
[2024-09-19] MEDS: PIPERACILLIN/TAZO 3.375 GM in 0.9 % SODIUM CHLORIDE 50 ML IV ×3 (03:15→18:42)
[2024-09-19] MEDS: ACETAMINOPHEN 325MG TAB 650 MG PO (06:01)
[2024-09-19] MEDS: 0.9 % SODIUM CHLORIDE 1000ML 1,000 ML 75 ML IV ×2 (06:01→13:21)
[2024-09-19 06:11] LABS: POC Glucose,Bedside 67 (70-110)
[2024-09-19 06:11] LABS: POC Glucose,Bedside 83 (70-110)
[2024-09-19 06:15] LABS: Basophils % 0.1 % (0.1-2.0); Eosinophils # 0.4 Kmm3 (0.0-0.4); Eosinophils % 4.9 % (0.1-12.0); Hematocrit 32.9 % (42.0-52.0); Hemoglobin 10.9 g/dL (14.1-18.0); Immature Granulocytes # 0.06 10^3uL; Immature Granulocytes % 0.7 %; Lymphocytes # 0.3 K/mm3 (0.7-4.5); Lymphocytes % 2.9 % (10-50); Mean Corpuscular HGB Conc 33.1 g/dL (31.8-35.4); Mean Corpuscular Volume 90.6 fl (80-94); Mean Platelet Volume 10.1 fl (7.4-10.4); Monocytes # 0.3 K/mm3 (0.1-1.0); Monocytes % 3.1 % (1.7-9.3); Neutrophils % 88.3 % (37.0-80.0); Nucleated Red Blood Cells # 0 10^3/uL; Nucleated Red Blood Cells % 0 %; Platelet Count 149 K/mm3 (142-424); Red Blood Count 3.63 M/mm3 (4.60-6.20); White Blood Count 9.1 K/mm3 (4.8-10.8)
[2024-09-19 06:17] LABS: MANUAL DIFFERENTIAL MANUAL DIFFERENTIAL (MANUAL DIFF)
[2024-09-19 06:22] LABS: Blood Urea Nitrogen 36 mg/dl (9-20); Carbon Dioxide 22 mmol/L (22.0-30.0); Chloride 110 mmol/L (98-107); Creatinine Clearance Estimated 45 mL/min (50-200); Estimated Glomerular Filt Rate 31 ml/min (>60); GFR (African American) 37 ML/MIN (>60); Glucose 80 mg/dl (74-100); Sodium 137 mmol/L (136-145)
[2024-09-19 06:25] LABS: Anion Gap 8.8 mEq/L (5-15); Potassium 3.8 mmoL/L (3.5-5.1)
--- NOTE | 2024-09-19 06:47 | EXP.ORTH.PN ---
Subjective *Date: 09/19/24 *Time: 12:27 Interval history: 09/19/24: Patient doing better this morning, more alert, talking and eating breakfast. He reports mild pain to his left lateral 5th toe DFU. Ortho Exam (Inpt) Vital signs and Labs for Last 24 Hours: Temp Pulse Resp BP Pulse Ox O2 Del Method O2 Flow Rate 99.1 F 102 H 20 92/67 L 94 L Room Air 100 09/19/24 04:00 09/19/24 06:00 09/19/24 06:00 09/19/24 06:00 09/19/24 06:00 09/19/24 06:39 09/18/24 16:00 Laboratory Results - last 24 hr 09/18/24 05:28: POC Glucose 202 H 09/18/24 08:00: PT 10.8, INR 0.97, Sodium 135 L, Potassium 4.3, Chloride 107, Carbon Dioxide 21 L, Anion Gap 11.3, BUN 38 H, Creatinine 2.20 H, Estimated Creat Clear 42, Estimated GFR 31 L, Est GFR ( Amer) 37 L, Glucose 192 H D, Lactate 1.1, Calcium 7.9 L, Phosphorus 3.7, Magnesium 1.5 L D, Total Bilirubin 0.6, AST 40, ALT 25 D, Alkaline Phosphatase 88, Total Protein 5.5 L, Albumin 3.0 L D, Globulin 2.5, Albumin/Globulin Ratio 1.2 09/18/24 10:30: VBG pH 7.28 L, VBG pCO2 41.9, VBG pO2 77.8 H, VBG HCO3 19.3 L, VBG Total CO2 20.6 L, VBG O2 Saturation 94.1 H, VBG Base Excess -7.4 L, VBG Lactic Acid 1.8 09/18/24 11:07: POC Glucose 164 H 09/18/24 16:07: POC Glucose 313 H* 09/18/24 20:41: POC Glucose 245 H 09/19/24 05:14: WBC 9.1 D, RBC 3.63 L, Hgb 10.9 L, Hct 32.9 L, MCV 90.6, MCH 30.0, MCHC 33.1, RDW 13.0, Plt Count 149, MPV 10.1, Neut % (Auto) 88.3 H, Lymph % (Auto) 2.9 L, [place] % (Auto) 3.1, Eos % (Auto) 4.9, Baso % (Auto) 0.1, Neut # (Auto) 8.0 H, Lymph # (Auto) 0.3 L, [place] # (Auto) 0.3, Eos # (Auto) 0.4, Baso # (Auto) 0.0, Sodium 137, Potassium 3.8, Chloride 110 H, Carbon Dioxide 22, Anion Gap 8.8, BUN 36 H, Creatinine 2.20 H, Estimated Creat Clear 45, Estimated GFR 31 L, Est GFR ( Amer) 37 L, Glucose 80 D, Calcium 8.0 L 09/19/24 05:51: POC Glucose 67 L 09/19/24 05:54: POC Glucose 83 Temp Pulse Resp BP Pulse Ox 99.1 F 85 18 121/75 98 10/11/22 07:44 10/11/22 07:44 10/11/22 07:44 10/11/22 07:44 10/11/22 07:44 Laboratory Results - last 24 hr 10/10/22 17:09: Urine Color Dk yellow, Urine Appearance Cloudy, Urine pH 5.5, Ur Specific [place] 1.025, Urine Protein 2+, Urine Glucose (UA) 2+, Urine Ketones Trace, Urine Blood 3+, Urine Nitrate Positive, Urine Bilirubin Negative, Urine Urobilinogen 1.0, Ur Leukocyte Esterase 1+ A, Urine RBC 20-50, Urine WBC 20-50, Ur Squamous Epith Cells 3-5, Urine Bacteria 2+ 10/10/22 17:33: WBC 17.2 H, RBC 4.99, Hgb 15.5, Hct 47.4, MCV 95.0 H, MCH 31.1, MCHC 32.7, RDW 14.4, Plt Count 204, MPV 8.0, Neut % (Auto) 92.1 H, Lymph % (Auto) 2.7 L, [place] % (Auto) 5.0, Eos % (Auto) 0.1, Baso % (Auto) 0.1, Neut # (Auto) 15.9 H, Lymph # (Auto) 0.5 L, [place] # (Auto) 0.9, Eos # (Auto) 0.0, Baso # (Auto) 0.0, Total Counted 100, Neutrophils % (Manual) 91 H, Lymphocytes % (Manual) 8 L, Monocytes % (Manual) 1 L, Platelet Estimate Normal, RBC Morphology Normal 10/10/22 17:33: Sodium 138, Potassium 4.0, Chloride 100, Carbon Dioxide 25, Anion Gap 17.0 H, BUN 17, Creatinine 1.40 H, Estimated Creat Clear 73, Estimated GFR 52 L, Est GFR ( Amer) 63, Glucose 159 H, Calcium 9.0, Total Bilirubin 1.2, AST 32, ALT 26, Alkaline Phosphatase 92, Total Protein 7.1, Albumin 4.3, Globulin 2.8, Albumin/Globulin Ratio 1.5, Procalcitonin 0.302 10/10/22 17:33: Lactate 2.2 H 10/10/22 18:45: SARS-CoV-2 (PCR) Not detected, Influenza A Untype (PCR) Not detected, Influenza Type B (PCR) Not detected 10/10/22 22:10: Lactate 2.7 H 10/11/22 00:25: Lactate 1.4 10/11/22 05:35: WBC 14.0 H, RBC 4.43 L, Hgb 13.8 L D, Hct 41.7 L, MCV 94.2 H, MCH 31.1, MCHC 33.1, RDW 14.4, Plt Count 183, MPV 7.9, Neut % (Auto) 89.5 H, Lymph % (Auto) 5.3 L, [place] % (Auto) 5.0, Eos % (Auto) 0.1, Baso % (Auto) 0.1, Neut # (Auto) 12.5 H, Lymph # (Auto) 0.7, [place] # (Auto) 0.7, Eos # (Auto) 0.0, Baso # (Auto) 0.0, Total Counted 100, Neutrophils % (Manual) 85 H, Lymphocytes % (Manual) 11, Monocytes % (Manual) 4, Platelet Estimate Normal, RBC Morphology Normal 10/11/22 05:35: Sodium 139, Potassium 3.9, Chloride 105, Carbon Dioxide 24, Anion Gap 13.9, BUN 20, Creatinine 1.30 H, Estimated Creat Clear 77, Estimated GFR 57 L, Est GFR ( Amer) 68, Glucose 61 L D, Calcium 7.9 L 10/11/22 05:35: ESR 35 H 10/11/22 05:35: C-Reactive Protein 239.0 H I & O for Labs for Last 24 Hours: Intake & Output 09/16/24 09/17/24 09/18/24 09/19/24 23:59 23:59 23:59 23:59 Intake Total 3602.752 / 3602.752 4847.278 / 4847.278 329.379 / 329.379 Output Total 800 / 800 3070 / 3070 1225 / 1225 Balance 2802.752 / 2802.752 1777.278 / 1777.278 -895.621 / -895.621 Weight 187 lb 187 lb 198 lb 6.4 oz Intake & Output 10/08/22 10/09/22 10/10/22 10/11/22 23:59 23:59 23:59 23:59 Intake Total 480 / 480 Output Total 300 / 300 100 / 100 Balance -300 / -300 380 / 380 Weight 196 lb 1 oz 196 lb 0.913 oz Microbiology Reports for the Last 24 Hours: Microbiology 09/17/24 17:20 Blood Blood Culture - Preliminary NO GROWTH AFTER 24 HOURS 09/17/24 17:20 Blood Blood Culture - Preliminary 09/18/24 07:54 Toe,Left Fifth Gram Stain - Final Microbiology 10/10/22 17:09 Urine,Clean Catch Urine Culture - Preliminary Gram Negative Rods Constitutional: Present no acute distress and somnolent Head: Present normocephalic Neck: Present normal inspection Respiratory: Present normal respiratory effort and able to speak in complete sentences Cardiac: Present posterior tibial pulses present and pedal pulses present Comment:: Weakly palpable pedal pulses noted b/l DP and PT. CFT >4-5 seconds. Skin temp wnl proximal to cool distal b/l LE. No varicosities noted. No edema noted. ALVARO's performed 09/18/24- Findings :No evidence of significant obstructive peripheral vascular disease of the lower extremities -He has two Non-compressible's at B/L calves, B/L toes are low at 0.63 and low amp at 6mm on right and 11mm on left. -Patient would benefit from a runoff. GI: Present other (no obesity) Rectal (male): Present deferred (male): Present deferred Extremities: Present normal inspection; Absent normal capillary refill (delayed) Skin: Present dry and wounds Comment:: Right hallux dorsal toe DFU: 100% granular, 0.6 x 0.3 x 0.2cm, thru skin into subq. Right lateral ankle DFU: 100% granular, 3.0 x 2.8 x 0.2cm, thru skin into subq. Left 5th toe DFU, 1.5 x 1.5 x 0.2cm,no drainage noted, 100% granular. Left hallux amp clean dry and intact. No edema or SOI noted. Neuro: Present alert and awake Ankle: bilateral: normal inspection Feet/Toes: bilateral: deformity (pes cavus), bilateral: nail abnormalities, bilateral: Ingrown Toenail, bilateral: onychomycosis and bilateral: wound (S/p left hallux amputation, cellulitis, left fifth toe DFU, right hallux DFU, right ankle ulcer) Comments:: Metatarsus varus bilateral feet, the metatarsal bones deviated inward no pain noted with active or passive ROM of the ankle, STJ or midtarsal joints, gastroc-soleus equinus b/l. Right 4-5th shaft of metatarsal old fracture, no pain to palpation. Assessment and Plan *Assessment and plan (1) Cellulitis of left foot: Status: Acute Category: Medical Code(s): L03.116 - Cellulitis of left lower limb (2) Diabetic ulcer of right foot: Problem Comment: Right 5th toe DFU probes to bone Status: Acute Qualifiers: Diabetes mellitus type: type 2 Diabetic foot ulcer location: other Non-pressure ulcer stage: with fat layer exposed Qualified Code(s): E11.621 - Type 2 diabetes mellitus with foot ulcer; L97.512 - Non-pressure chronic ulcer of other part of right foot with fat layer exposed Category: Medical Code(s): E11.621 - Type 2 diabetes mellitus with foot ulcer; L97.519 - Non-pressure chronic ulcer of other part of right foot with unspecified severity (3) Diabetic ulcer of left foot: Status: Acute Qualifiers: Diabetes mellitus type: type 2 Diabetic foot ulcer location: other Non-pressure ulcer stage: with fat layer exposed Qualified Code(s): E11.621 - Type 2 diabetes mellitus with foot ulcer; L97.522 - Non-pressure chronic ulcer of other part of left foot with fat layer exposed Category: Medical Code(s): E11.621 - Type 2 diabetes mellitus with foot ulcer; L97.529 - Non-pressure chronic ulcer of other part of left foot with unspecified severity (4) Diabetes mellitus with diabetic neuropathy: Status: Acute Qualifiers: Diabetes mellitus shelter insulin use: without wellness specialist use Diabetes mellitus type: type 2 Qualified Code(s): E11.40 - Type 2 diabetes mellitus with diabetic neuropathy, unspecified Category: Medical Code(s): E11.40 - Type 2 diabetes mellitus with diabetic neuropathy, unspecified (5) PAD (peripheral artery disease): Status: Acute Category: Medical Code(s): I73.9 - Peripheral vascular disease, unspecified (6) History of amputation of great toe: Status: Acute Category: Surgical Code(s): Z89.419 - Acquired absence of unspecified great toe (7) Skin ulcer of right great toe: Status: Acute Qualifiers: Non-pressure ulcer stage: limited to breakdown of skin Qualified Code(s): L97.511 - Non-pressure chronic ulcer of other part of right foot limited to breakdown of skin Category: Medical Code(s): L97.519 - Non-pressure chronic ulcer of other part of right foot with unspecified severity (8) Skin ulcer of third toe of left foot: Status: Acute Qualifiers: Non-pressure ulcer stage: limited to breakdown of skin Qualified Code(s): L97.521 - Non-pressure chronic ulcer of other part of left foot limited to breakdown of skin Category: Medical Code(s): L97.529 - Non-pressure chronic ulcer of other part of left foot with unspecified severity (9) Leg wound, right: Status: Acute Qualifiers: Encounter type: initial encounter Qualified Code(s): S81.801A - Unspecified open wound, right lower leg, initial encounter Category: Medical Code(s): S81.801A - Unspecified open wound, right lower leg, initial encounter (10) Osteoarthritis: Status: Acute Qualifiers: Laterality: right Osteoarthritis location: foot Osteoarthritis type: primary Qualified Code(s): M19.071 - Primary osteoarthritis, right ankle and foot Category: Medical Code(s): M19.90 - Unspecified osteoarthritis, unspecified site (11) Diabetic foot: Status: Acute Category: Medical Code(s): E11.8 - Type 2 diabetes mellitus with unspecified complications (12) Status post amputation of left great toe: Problem Comment: Surgery, 08/01/24: s/p Right hallux and lateral ankle DFU wound debridement x2, Left 5th toe DFU wound debridement, Left foot irrigation and debridement, hallux amputation Status: Acute Category: Surgical Code(s): Z89.412 - Acquired absence of left great toe Plan 09/19/24 Viewed labs 09/17/24 WBC 14.7 BUN 39, creatinine 2.50, GFR 26, glucose 256, CRP 298.7 09/19/24 WBC 9.1, bun 36 creatinine 2.20, GFR 31 glucose 80, ESR 44, CRP 129.4 09/18/24: Left foot 3V X-rays- FINDINGS: LEFT FOOT Three views of the left foot demonstrate prior amputation of the 1st digit. There is hammertoe deformity of the 2nd digit. There appears to be sclerosis or calcification over the dorsal aspect of the 2nd digit. There is no evidence of bony erosion of the 5th digit. There is no acute fracture or dislocation. The visualized joint spaces are normally aligned. Overlying soft tissue edema is noted of the 5th digit. IMPRESSION: Soft tissue edema of the 5th digit without evidence of bony erosion. Reviewed, Interpreted and Dictated by Hermes Zepeda MD Transcribed by Isaura Billy Reviewed ALVARO's 09/18/24: FINDINGS: ANKLE-BRACHIAL PRESSURE INDICES Pressure indices are as follows: RIGHT LOWER EXTREMITY: Ankle-brachial pressure index: 1.64 Comments: Normal LEFT LOWER EXTREMITY: Ankle-brachial pressure index: 1.67 Comments: Normal IMPRESSION: No evidence of significant obstructive peripheral vascular disease of the lower extremities Reviewed, Interpreted and Dictated by Hermes Zepeda MD Transcribed by Isaura Billy -He has two Non-compressible's at B/L calves, B/L toes are low at 0.63 and low amp at 6mm on right and 11mm on left. Left foot CT wo con: 09/18/24: FINDINGS: There is marked hypertrophic osteophyte formation along the dorsal aspect of the intertarsal joints consistent with advanced osteoarthritis. There is degenerative osteochondral defect in the lateral talar dome. Small intra-articular loose body are identified in the medial mortise measuring 3 mm. There has been amputation of the first digit with overlying soft tissue edema. There is fragmentation of the second distal phalange which may be due to old trauma. There is no evidence of bony erosion or periosteal reaction of the fifth digit. IMPRESSION:Marked hypertrophic changes of osteoarthritis of the dorsal intertarsal joints. Osteochondral defect of the lateral talar dome. Prior amputation of the first digit with overlying soft tissue edema. Small intra-articular loose body as above.Reviewed, Interpreted and Dictated by Hermes Zepeda MD Transcribed by Mariana Anna S/P Surgery, 08/01/24: s/p Right hallux and lateral ankle DFU wound debridement x2, Left 5th toe DFU wound debridement, Left foot irrigation and debridement, hallux amputation Plan: -Left 5th ulcer has less erythema today, but has some edema, tenderness, and visible pinhole opening that probes to proximal phalanx head -Patient seems to be overall improving today, he was alert, speaking in full sentences, and eating breakfast. -B/L DFU noted and sharp excisional full thickness debridement with 15 blade. See PE skin for details/measurements. -B/L foot/ankle dressing changed. -Betadine soaked gauze, DSD applied. -Continue IV abx per Dr Grissom: broad spectrum coverage: Vanco, Zosyn. -PWB in b/l post op shoes, walker. - independently reviewed labs, xr and CT left foot. -CT left foot series 3 image 70 there appears to be a questionable erosion on the left proximal phalanx head laterally. Report read as no osteomyelitis or cortical erosions. -If patient's sepsis symptoms, infection labs are not improving with IV abx, may need to consider bone biopsy or left 5th toe amputation. -Given his current state of health, and no purulence, ascending cellulitis or foot pain-would not guerrero to do foot surgery. -Will hold on Podiatry procedures, as patient needs heart cath. -Podiatry will continue to follow. -All order per Dr. Trujillo
[2024-09-19 07:25] LABS: Erythrocyte Sedimentation Rate 44 mm/hr (0-20)
[2024-09-19 07:35] LABS: Eosinophils % 4 % (0-3); Lymphocytes % 3 % (10-50); Monocytes % 3 % (2-9); Neutrophils % 90 % (42-76); Total Cells Counted 100
[2024-09-19 07:36] LABS: Platelet Estimate Normal; RBC Morphology Normal
[2024-09-19 07:49] LABS: C-Reactive Protein 129.4 mg/L (0-4)
[2024-09-19] MEDS: HEPARIN SODIUM 5,000 UNIT/ML VIAL 5000 UNIT SUBCUT ×3 (08:12→20:15)
[2024-09-19] MEDS: DOCUSATE SODIUM 10 ML/UDC UDC PO (08:12)
--- NOTE | 2024-09-19 08:13 | EXP.ACUTE.PN ---
Subjective *Date: 09/19/24 *Time: 09:59 Interval history: Patient is awake and eating breakfast this am. He states he feels better. He denies any pain other than in his foot. Medical Exam Vital signs and Labs for Last 24 Hours: Vital Signs Temp Pulse Pulse Resp BP BP Pulse Ox 09/19/24 07:00 99 H 18 101/69 L 94 L 09/19/24 06:39 09/19/24 06:00 102 H 20 92/67 L 94 L 09/19/24 05:00 103 H 18 112/63 95 09/19/24 05:00 09/19/24 04:04 108 H 09/19/24 04:00 99.1 F 104 H 22 108/62 L 94 L 09/19/24 04:00 108 H 95 09/19/24 03:00 09/19/24 03:00 98/67 L 09/19/24 03:00 102 H 22 98/67 L 96 09/19/24 02:00 104 H 24 98/66 L 96 09/19/24 01:00 103 H 20 115/84 91 L 09/19/24 01:00 98 H 18 98/67 L 94 L 09/19/24 01:00 09/19/24 00:00 90 09/19/24 00:00 106 H 95 09/19/24 00:00 99 F 93 H 22 94/60 L 92 L 09/18/24 23:00 09/18/24 23:00 87 21 93/63 L 93 L 09/18/24 22:00 97 H 25 H 100/72 L 95 09/18/24 21:00 09/18/24 21:00 101 H 27 H 99/62 L 91 L 09/18/24 20:01 96 H 09/18/24 20:00 102 H 95 09/18/24 20:00 98.4 F 89 26 H 113/70 95 09/18/24 18:45 97 H 20 102/65 L 96 09/18/24 18:30 88 21 121/79 95 09/18/24 18:29 80 09/18/24 18:15 96 H 19 122/77 91 L 09/18/24 18:08 09/18/24 18:00 98 H 26 H 118/77 96 09/18/24 17:45 94 H 28 H 111/75 96 09/18/24 17:30 100 H 16 111/77 99 09/18/24 17:15 20 120/59 L 99 09/18/24 16:31 09/18/24 16:00 80 09/18/24 16:00 98.2 F 88 14 97/55 L 09/18/24 15:42 100 09/18/24 15:00 88 14 91/67 L 95 09/18/24 14:45 90 84/59 L 100 09/18/24 14:25 93 H 94/52 L 100 09/18/24 14:25 98.2 F 93 H 16 94/52 L 100 09/18/24 14:01 09/18/24 13:30 96 H 105/35 L 100 09/18/24 13:00 99 H 88/52 L 99 09/18/24 12:44 09/18/24 12:30 89 15 105/63 L 100 09/18/24 12:00 87 95/81 L 98 09/18/24 11:54 100 09/18/24 11:54 98.2 F 09/18/24 11:30 86 16 90/54 L 97 09/18/24 11:00 82 15 92/55 L 97 09/18/24 10:56 09/18/24 10:30 90 16 84/54 L 100 09/18/24 10:00 89 15 122/63 100 09/18/24 09:30 97 H 16 110/59 L 100 09/18/24 09:00 87 16 97/66 L 99 09/18/24 08:55 09/18/24 08:45 92 H 15 95/62 L 100 09/18/24 08:15 85 15 107/71 L 100 O2 Del Method O2 Flow Rate 09/19/24 07:00 Room Air 09/19/24 06:39 Room Air 09/19/24 06:00 Room Air 09/19/24 05:00 Room Air 09/19/24 05:00 Room Air 09/19/24 04:04 09/19/24 04:00 Room Air 09/19/24 04:00 Room Air 09/19/24 03:00 Room Air 09/19/24 03:00 09/19/24 03:00 Room Air 09/19/24 02:00 09/19/24 01:00 09/19/24 01:00 Room Air 09/19/24 01:00 Room Air 09/19/24 00:00 09/19/24 00:00 Room Air 09/19/24 00:00 Room Air 09/18/24 23:00 Room Air 09/18/24 23:00 Room Air 09/18/24 22:00 Room Air 09/18/24 21:00 Room Air 09/18/24 21:00 Room Air 09/18/24 20:01 09/18/24 20:00 Room Air 09/18/24 20:00 Room Air 09/18/24 18:45 Room Air 09/18/24 18:30 Room Air 09/18/24 18:29 09/18/24 18:15 Room Air 09/18/24 18:08 Room Air 09/18/24 18:00 Room Air 09/18/24 17:45 Room Air 09/18/24 17:30 Room Air 09/18/24 17:15 Room Air 09/18/24 16:31 Room Air 09/18/24 16:00 09/18/24 16:00 Room Air 100 09/18/24 15:42 Room Air 09/18/24 15:00 Room Air 09/18/24 14:45 Room Air 09/18/24 14:25 Room Air 09/18/24 14:25 Room Air 09/18/24 14:01 Room Air 09/18/24 13:30 Room Air 09/18/24 13:00 Room Air 09/18/24 12:44 Room Air 09/18/24 12:30 Room Air 09/18/24 12:00 Room Air 09/18/24 11:54 Room Air 09/18/24 11:54 09/18/24 11:30 Room Air 09/18/24 11:00 Room Air 09/18/24 10:56 Room Air 09/18/24 10:30 Room Air 09/18/24 10:00 Room Air 09/18/24 09:30 Room Air 09/18/24 09:00 Room Air 09/18/24 08:55 Room Air 99 09/18/24 08:45 Room Air 09/18/24 08:15 Room Air Intake and Output 09/18/24 09/19/24 09/19/24 19:59 03:59 11:59 Intake Total 1977.736 / 2313.865 332.813 / 2313.865 3.316 / 2313.865 Output Total 1150 / 3025 1225 / 3025 650 / 3025 Balance 827.736 / -711.135 -892.187 / -711.135 -646.684 / -711.135 Intake: Intake, Oral Amount 960 / 960 Intake, Total IV Amount 1017.736 / 1353.865 332.813 / 1353.865 3.316 / 1353.865 0.9 % Sodium Chloride 1000ML 1, 763 / 763 000 ml @ 75 mls/hr IV .[id number] [facility] Rx#:[id number] Magnesium Sulfate in Water 2 gm 50 / 50 In 50 ml @ 50 mls/hr IV ONCE ONE Rx#:[id number] Vancomycin/Water For Inj (Peg) 250 / 250 1.25 gm In 250 ml @ 125 mls/hr IV Q24H [facility] Rx#:[id number] Output: Output, Urine Amount 575 / 1175 175 / 1175 425 / 1175 Output, Urine Amount (Catheter) 575 / 1850 1050 / 1850 225 / 1850 Henriquez 575 / 1850 1050 / 1850 225 / 1850 Other: Number of Unmeasured Voids 0 0 Weight 198 lb 6.4 oz Patient Weight 09/19/24 11:59 Weight 198 lb 6.4 oz Laboratory Results - last 24 hr 09/18/24 05:28: POC Glucose 202 H 09/18/24 08:00: PT 10.8, INR 0.97, Sodium 135 L, Potassium 4.3, Chloride 107, Carbon Dioxide 21 L, Anion Gap 11.3, BUN 38 H, Creatinine 2.20 H, Estimated Creat Clear 42, Estimated GFR 31 L, Est GFR ( Amer) 37 L, Glucose 192 H D, Lactate 1.1, Calcium 7.9 L, Phosphorus 3.7, Magnesium 1.5 L D, Total Bilirubin 0.6, AST 40, ALT 25 D, Alkaline Phosphatase 88, Total Protein 5.5 L, Albumin 3.0 L D, Globulin 2.5, Albumin/Globulin Ratio 1.2 09/18/24 10:30: VBG pH 7.28 L, VBG pCO2 41.9, VBG pO2 77.8 H, VBG HCO3 19.3 L, VBG Total CO2 20.6 L, VBG O2 Saturation 94.1 H, VBG Base Excess -7.4 L, VBG Lactic Acid 1.8 09/18/24 11:07: POC Glucose 164 H 09/18/24 16:07: POC Glucose 313 H* 09/18/24 20:41: POC Glucose 245 H 09/19/24 05:14: WBC 9.1 D, RBC 3.63 L, Hgb 10.9 L, Hct 32.9 L, MCV 90.6, MCH 30.0, MCHC 33.1, RDW 13.0, Plt Count 149, MPV 10.1, Neut % (Auto) 88.3 H, Lymph % (Auto) 2.9 L, [place] % (Auto) 3.1, Eos % (Auto) 4.9, Baso % (Auto) 0.1, Neut # (Auto) 8.0 H, Lymph # (Auto) 0.3 L, [place] # (Auto) 0.3, Eos # (Auto) 0.4, Baso # (Auto) 0.0, Total Counted 100, Neutrophils % (Manual) 90 H, Lymphocytes % (Manual) 3 L, Monocytes % (Manual) 3, Eosinophils % (Manual) 4 H, Platelet Estimate Normal, RBC Morphology Normal, ESR 44 H, Sodium 137, Potassium 3.8, Chloride 110 H, Carbon Dioxide 22, Anion Gap 8.8, BUN 36 H, Creatinine 2.20 H, Estimated Creat Clear 45, Estimated GFR 31 L, Est GFR ( Amer) 37 L, Glucose 80 D, Calcium 8.0 L, C-Reactive Protein 129.4 H 09/19/24 05:51: POC Glucose 67 L 09/19/24 05:54: POC Glucose 83 I & O for Labs for Last 24 Hours: Intake & Output 09/16/24 09/17/24 09/18/24 09/19/24 11:59 11:59 11:59 11:59 Intake Total 6465.544 / 6465.544 2313.865 / 2313.865 Output Total 2069 / 2069 3025 / 3025 Balance 4395.544 / 4395.544 -711.135 / -711.135 Weight 187 lb 198 lb 6.4 oz Microbiology Reports for the Last 24 Hours: Microbiology 09/17/24 17:20 Blood Blood Culture - Preliminary NO GROWTH AFTER 24 HOURS 09/17/24 17:20 Blood Blood Culture - Preliminary 09/18/24 07:54 Toe,Left Fifth Gram Stain - Final Constitutional: Present no acute distress Respiratory: Present normal respiratory effort Cardiac: Present Reg Rate and Rhythm Comment:: Dressings in place over both feet Neuro: Present Grossly Intact and moves all extremities Assessment and Plan *Assessment and plan (1) Cellulitis of left foot: Status: Acute Category: Medical Code(s): L03.116 - Cellulitis of left lower limb (2) Diabetic ulcer of right foot: Problem Comment: Right 5th toe DFU probes to bone Status: Acute Qualifiers: Diabetes mellitus type: type 2 Diabetic foot ulcer location: other Non-pressure ulcer stage: with fat layer exposed Qualified Code(s): E11.621 - Type 2 diabetes mellitus with foot ulcer; L97.512 - Non-pressure chronic ulcer of other part of right foot with fat layer exposed Category: Medical Code(s): E11.621 - Type 2 diabetes mellitus with foot ulcer; L97.519 - Non-pressure chronic ulcer of other part of right foot with unspecified severity (3) Diabetic ulcer of left foot: Status: Acute Qualifiers: Diabetes mellitus type: type 2 Diabetic foot ulcer location: other Non-pressure ulcer stage: with fat layer exposed Qualified Code(s): E11.621 - Type 2 diabetes mellitus with foot ulcer; L97.522 - Non-pressure chronic ulcer of other part of left foot with fat layer exposed Category: Medical Code(s): E11.621 - Type 2 diabetes mellitus with foot ulcer; L97.529 - Non-pressure chronic ulcer of other part of left foot with unspecified severity (4) Diabetes mellitus with diabetic neuropathy: Status: Acute Qualifiers: Diabetes mellitus termite exterminator helper insulin use: without termite exterminator helper use Diabetes mellitus type: type 2 Qualified Code(s): E11.40 - Type 2 diabetes mellitus with diabetic neuropathy, unspecified Category: Medical Code(s): E11.40 - Type 2 diabetes mellitus with diabetic neuropathy, unspecified (5) PAD (peripheral artery disease): Status: Acute Category: Medical Code(s): I73.9 - Peripheral vascular disease, unspecified (6) History of amputation of great toe: Status: Acute Category: Surgical Code(s): Z89.419 - Acquired absence of unspecified great toe (7) Skin ulcer of right great toe: Status: Acute Qualifiers: Non-pressure ulcer stage: limited to breakdown of skin Qualified Code(s): L97.511 - Non-pressure chronic ulcer of other part of right foot limited to breakdown of skin Category: Medical Code(s): L97.519 - Non-pressure chronic ulcer of other part of right foot with unspecified severity (8) Skin ulcer of third toe of left foot: Status: Acute Qualifiers: Non-pressure ulcer stage: limited to breakdown of skin Qualified Code(s): L97.521 - Non-pressure chronic ulcer of other part of left foot limited to breakdown of skin Category: Medical Code(s): L97.529 - Non-pressure chronic ulcer of other part of left foot with unspecified severity (9) Leg wound, right: Status: Acute Qualifiers: Encounter type: initial encounter Qualified Code(s): S81.801A - Unspecified open wound, right lower leg, initial encounter Category: Medical Code(s): S81.801A - Unspecified open wound, right lower leg, initial encounter (10) Osteoarthritis: Status: Acute Qualifiers: Laterality: right Osteoarthritis location: foot Osteoarthritis type: primary Qualified Code(s): M19.071 - Primary osteoarthritis, right ankle and foot Category: Medical Code(s): M19.90 - Unspecified osteoarthritis, unspecified site (11) Diabetic foot: Status: Acute Category: Medical Code(s): E11.8 - Type 2 diabetes mellitus with unspecified complications (12) Status post amputation of left great toe: Problem Comment: Surgery, 08/01/24: s/p Right hallux and lateral ankle DFU wound debridement x2, Left 5th toe DFU wound debridement, Left foot irrigation and debridement, hallux amputation Status: Acute Category: Surgical Code(s): Z89.412 - Acquired absence of left great toe (13) Septic shock: Status: Acute Category: Medical Code(s): A41.9 - Sepsis, unspecified organism; R65.21 - Severe sepsis with septic shock (14) Hypotension: Status: Acute Qualifiers: Hypotension type: hypotension due to hypovolemia Qualified Code(s): E86.1 - Hypovolemia Category: Medical Code(s): I95.9 - Hypotension, unspecified (15) Acute kidney injury: Status: Resolved Category: Medical Code(s): N17.9 - Acute kidney failure, unspecified (16) Hypomagnesemia: Status: Acute Category: Medical Code(s): E83.42 - Hypomagnesemia (17) NSTEMI (non-ST elevated myocardial infarction): Status: Acute Category: Medical Code(s): I21.4 - Non-ST elevation (NSTEMI) myocardial infarction (18) Heart failure with reduced ejection fraction: Status: Acute Category: Medical Code(s): I50.20 - Unspecified systolic (congestive) heart failure (19) Diabetes mellitus: Status: Chronic Qualifiers: Diabetes mellitus complication status: without complication Diabetes mellitus [facility] insulin use: without [facility] use Diabetes mellitus type: type 2 Qualified Code(s): E11.9 - Type 2 diabetes mellitus without complications Category: Medical Code(s): E11.9 - Type 2 diabetes mellitus without complications Plan Cardiology saw the patient and he will need to undergo a left heart cath during this hospitalization. They also felt he would need a cardiac MRI on an outpatient basis. He has been seen by podiatry as well and they are changing the dressings on his feet and will continue to follow. His creatinine has improved slightly to 2.2. Awaiting blood, urine, and wound cultures. Will discuss further care with Dr. Grissom. Dr. Grissom entry - Saw patient, agree with above note. BP is trending down, will likely need to resume Levophed, await test results.
[2024-09-19] MEDS: NOREPINEPHRINE BITARTRATE/D5W 8 MG/250 ML PLAST..BAG 1 MG IV (09:18)
--- NOTE | 2024-09-19 09:21 | PC.NURSE ---
Verbal orders received from for patients diet to be NPO at this time. states will reasses patient around noon to determine if patient can go for a bone biopsy. Continuation of care plan.
--- NOTE | 2024-09-19 09:47 | P.PN_ITS ---
Subjective *Date: 09/20/24 *Time: 14:06 Interval history: Patient denies any new respiratory complaints Pulmonology Exam Inpatient Vital signs and Labs for Last 24 Hours: Temp Pulse Resp BP Pulse Ox O2 Del Method O2 Flow Rate 98.5 F 92 H 17 74/45 L 94 L Room Air 100 09/19/24 07:00 09/19/24 09:15 09/19/24 09:15 09/19/24 09:15 09/19/24 09:15 09/19/24 09:15 09/18/24 16:00 Laboratory Results - last 24 hr 09/18/24 05:28: POC Glucose 202 H 09/18/24 10:30: VBG pH 7.28 L, VBG pCO2 41.9, VBG pO2 77.8 H, VBG HCO3 19.3 L, VBG Total CO2 20.6 L, VBG O2 Saturation 94.1 H, VBG Base Excess -7.4 L, VBG Lactic Acid 1.8 09/18/24 11:07: POC Glucose 164 H 09/18/24 16:07: POC Glucose 313 H* 09/18/24 20:41: POC Glucose 245 H 09/19/24 05:14: WBC 9.1 D, RBC 3.63 L, Hgb 10.9 L, Hct 32.9 L, MCV 90.6, MCH 30.0, MCHC 33.1, RDW 13.0, Plt Count 149, MPV 10.1, Neut % (Auto) 88.3 H, Lymph % (Auto) 2.9 L, [place] % (Auto) 3.1, Eos % (Auto) 4.9, Baso % (Auto) 0.1, Neut # (Auto) 8.0 H, Lymph # (Auto) 0.3 L, [place] # (Auto) 0.3, Eos # (Auto) 0.4, Baso # (Auto) 0.0, Total Counted 100, Neutrophils % (Manual) 90 H, Lymphocytes % (Manual) 3 L, Monocytes % (Manual) 3, Eosinophils % (Manual) 4 H, Platelet Estimate Normal, RBC Morphology Normal, ESR 44 H, Sodium 137, Potassium 3.8, Chloride 110 H, Carbon Dioxide 22, Anion Gap 8.8, BUN 36 H, Creatinine 2.20 H, Estimated Creat Clear 45, Estimated GFR 31 L, Est GFR ( Amer) 37 L, Glucose 80 D, Calcium 8.0 L, C-Reactive Protein 129.4 H 09/19/24 05:51: POC Glucose 67 L 09/19/24 05:54: POC Glucose 83 I & O for Labs for Last 24 Hours: Intake & Output 09/16/24 09/17/24 09/18/24 09/19/24 23:59 23:59 23:59 23:59 Intake Total 3602.752 / 3602.752 4847.278 / 4847.278 979.912 / 979.912 Output Total 800 / 820 3070 / 3070 1600 / 1600 Balance 2802.752 / 2782.752 1777.278 / 1777.278 -620.088 / -620.088 Weight 187 lb 187 lb 198 lb 6.4 oz Microbiology Reports for the Last 24 Hours: Microbiology 09/17/24 17:20 Urine,Clean Catch Urine Culture - Final No growth. 09/17/24 17:20 Blood Blood Culture - Preliminary NO GROWTH AFTER 24 HOURS 09/17/24 17:20 Blood Blood Culture - Preliminary 09/18/24 07:54 Toe,Left Fifth Gram Stain - Final Assessment and Plan *Assessment and plan (1) Septic shock: Status: Acute Category: Medical Code(s): A41.9 - Sepsis, unspecified organism; R65.21 - Severe sepsis with septic shock Plan Mr. Mcdaniel is a 63-year-old male history of CAD, peripheral vascular disease, LV dysfunction poor nutritional status presented today with multiple complaints of decreased fluid intake generalized weakness nausea and vomiting. Patient is a never smoker. He denies any respiratory symptoms. Denies any cough or any productive phlegm. Never used any inhalers or oxygen. History of osteomyelitis with recent wound culture growing Klebsiella and Proteus and Enterococcus Afebrile. Hemodynamically unstable needing pressor support. Neutrophilic predominant leukocytosis. CTA PE upon admission, no pulmonary embolism. No dense consolidative/airspace changes. No pleural effusions. No evidence of volume overload. Right lower lobe lung nodule with central calcification noted. Echocardiogram grade 1 LV diastolic dysfunction, EF 45-50%. RV size and function normal On examination chest clear to auscultate. No respiratory distress noted. Saturating 100% on room air. Continue to receive norepinephrine at 15 mcg, repeat venous blood gas showed improving lactic acid at 1.8. Continue to show metabolic acidosis likely from renal dysfunction. Received adequate fluid resuscitation, 4 L since admission. Will hold off on any additional fluids Interval update: Improving leukocytosis. Improving hemodynamics, off pressors. Continue to remain on room air. Afebrile. Repeat blood cultures pending. Wound cultures growing MRSA. Repeat blood cultures negative. Plan:- Follow with podiatry recommendations. From critical care standpoint recommend 7-day course of antibiotics for presumed MRSA bactremia starting 09/19/2024 DuoNebs 4 times daily as needed
[2024-09-19] MEDS: humaLOG 100 UNITS/ML 10ML VIAL (SSI) SUBCUT ×3 (11:13→20:16)
[2024-09-19 11:15] LABS: POC Glucose,Bedside 252 (70-110)
[2024-09-19 19:55] LABS: POC Glucose,Bedside 215 (70-110)
[2024-09-19] MEDS: VANCOMYCIN/WATER FOR INJ (PEG) 1.25 GM/250 ML PIGGYBACK IV (20:15)
[2024-09-19] MEDS: PANTOPRAZOLE 40MG TABLET 40 MG PO (20:16)
--- NOTE | 2024-09-19 21:07 | P.PN_ITS ---
Subjective Subjective Date: 09/19/24 Time: 09:00 Principal diagnosis: hypotension, non-stemi Interval history: This is a 63-year-old gentleman who presented to the emergency department with complaints of nausea and vomiting. The patient was found to have an elevated troponin consistent with a non-STEMI as well as an CRISTEL and an elevated lactate. The patient has been getting IV antibiotics. He has remained hypotensive throughout his hospitalization. They were able to get him off of the norepinephrine drip around 5 AM this morning that had to restart the drip around 918 this morning due to hypotension with a systolic blood pressure in the 70s. The patient states that he did have nausea and vomiting through the night. He denies any chest pain or pressure. He denies any shortness of breath or edema. He denies any fever, chills or diarrhea. The patient has known HFrEF with an ejection fraction of 45%. He also has severe three-vessel coronary artery disease with recent stenting in January 2024. He will need left cardiac c atheterization during this hospitalization once his kidney function has improved. His creatinine remains elevated today at 2.2. Exam Data for Last 24 hours Vital signs and Labs for Last 24 Hours: Temp Pulse Resp BP Pulse Ox O2 Del Method O2 Flow Rate 98.5 F 102 H 24 128/79 94 L Room Air 100 09/19/24 20:00 09/19/24 20:00 09/19/24 20:00 09/19/24 20:00 09/19/24 20:00 09/19/24 20:00 09/18/24 16:00 Laboratory Results - last 24 hr 09/19/24 05:14: WBC 9.1 D, RBC 3.63 L, Hgb 10.9 L, Hct 32.9 L, MCV 90.6, MCH 30.0, MCHC 33.1, RDW 13.0, Plt Count 149, MPV 10.1, Neut % (Auto) 88.3 H, Lymph % (Auto) 2.9 L, [place] % (Auto) 3.1, Eos % (Auto) 4.9, Baso % (Auto) 0.1, Neut # (Auto) 8.0 H, Lymph # (Auto) 0.3 L, [place] # (Auto) 0.3, Eos # (Auto) 0.4, Baso # (Auto) 0.0, Total Counted 100, Neutrophils % (Manual) 90 H, Lymphocytes % (Manual) 3 L, Monocytes % (Manual) 3, Eosinophils % (Manual) 4 H, Platelet Estimate Normal, RBC Morphology Normal, ESR 44 H, Sodium 137, Potassium 3.8, Chloride 110 H, Carbon Dioxide 22, Anion Gap 8.8, BUN 36 H, Creatinine 2.20 H, Estimated Creat Clear 45, Estimated GFR 31 L, Est GFR ( Amer) 37 L, Glucose 80 D, Calcium 8.0 L, C-Reactive Protein 129.4 H 09/19/24 05:51: POC Glucose 67 L 09/19/24 05:54: POC Glucose 83 09/19/24 11:05: POC Glucose 252 H 09/19/24 19:46: POC Glucose 215 H I & O for Last 24 hours: Intake & Output 09/16/24 09/17/24 09/18/24 09/19/24 23:59 23:59 23:59 23:59 Intake Total 3602.752 / 3602.752 4847.278 / 4847.278 2783.663 / 2783.663 Output Total 800 / 820 3070 / 3070 5385 / 5385 Balance 2802.752 / 2782.752 1777.278 / 1777.278 -2601.337 / -2601.337 Weight 187 lb 187 lb 198 lb 6.4 oz Microbiology Reports for the Last 24 Hours: Microbiology 09/17/24 17:20 Blood Blood Culture - Preliminary NO GROWTH AFTER 48 HOURS 09/17/24 17:20 Urine,Clean Catch Urine Culture - Final No growth. 09/17/24 17:20 Blood Blood Culture - Preliminary Constitutional Constitutional: no acute distress and average body habitus *Routine HEENT Exam Head: Present normocephalic and atraumatic ENT: Present mucous membranes moist *Routine Neck Exam Neck: Present supple, full ROM and normal carotid upstroke; Absent JVD, carotid bruit or lymphadenopathy *Routine Respiratory Exam Respiratory: Present CTA bilaterally, normal respiratory effort, able to speak in complete sentences and symmetric chest movement *Routine Cardiovascular Exam Cardiovascular: Present RRR, Normal S1 and Normal S2; Absent murmur or gallop *Routine Abdominal Exam Abdominal: Present soft and normoactive bowel sounds; Absent tenderness, distended or organomegaly *Routine Extremities Exam Extremities: Present full ROM, pulses intact and normal capillary refill; Absent cyanosis, clubbing or edema *Routine Skin Exam Skin: Present warm and wounds (To the right foot); Absent erythema *Routine Neurological Exam Neurological: Present alert, oriented X3 and CN II-XII intact; Absent sensory d eficit or motor deficit Routine Psychiatric Exam Psychiatric: Present normal affect Progress Note: A&P Assessment and plan (1) Cellulitis of left foot: Status: Acute (2) Diabetes mellitus with diabetic neuropathy: Status: Acute (3) PAD (peripheral artery disease): Status: Acute (4) History of amputation of great toe: Status: Acute (5) Leg wound, right: Status: Acute (6) Atrial fibrillation: Status: Acute (7) Abnormal echocardiogram: Status: Acute (8) Nausea & vomiting: Status: Acute (9) Chronic HFrEF (heart failure with reduced ejection fraction): Status: Acute (10) Hypertension: Status: Acute (11) Hyperlipidemia: Status: Acute (12) Ischemic cardiomyopathy: Status: Acute (13) Coronary artery disease: Status: Acute (14) Hypotension: Status: Acute (15) Septic shock: Status: Acute Assessment and Plan Assessment and Plan for All Diagnoses:: Plan: 1. The patient presented to the emergency department complaints of nausea and vomiting. He was found to have an CRISTEL, non-STEMI and elevated lactate with sepsis. The patient was treated with a liter fluid bolus and then subsequently admitted to the hospital. Antibiotics have been initiated due to to his sepsis. Will defer this to the hospitalist. 2. The patient was hypotensive and started on a norepinephrine drip. It was stopped around 5 AM this morning but then restarted again a little after 9 AM this morning due to persistent hypotension. Will continue norepinephrine, and try to wean this off as his blood pressure improves. 3. The patient does have an elevated troponin consistent with a non-STEMI. He has known severe three-vessel disease status post stenting. Echocardiogram on this admission shows inferior and inferior septal wall motion abnormalities which are new. He will need to undergo a left cardiac catheterization during this hospitalization once his CRISTEL has improved and his creatinine is approaching back to his baseline of 1. 4. Coronary artery disease is present. He will need left cardiac catheteri zation as mentioned above. Continue aspirin and Plavix for dual antiplatelet therapy. 5. His echocardiogram continues to show LV wall thickness. He will need a cardiac MRI on an outpatient basis. 6. His blood pressure is being maintained on a norepinephrine drip at this time. 7. His LDL goal is less than 55. His LDL is less than 30. He is on a statin. 8. The patient did have an acute kidney injury on admission. His creatinine was up to 2.5. Creatinine remains at 2.2 today. His baseline is 1.0. 9. The patient's BNP was 7900 on admission. He does have acute on chronic HFrEF. 10. The patient does have a right foot wound. Recommend podiatry consult. ALVARO is normal. 11. All heart failure medications are being held at this time due to to his hypotension and being on a norepinephrine drip. Continue to hold spironolactone, Entresto, carvedilol, and verquvo. Amlodipine needs to be discontinued due to his HFrEF. 12. The patient was in atrial fibrillation on admission. He is currently rate controlled. If he gets more tachycardic then we may have to reinitiate his beta-eitan for rate control. 13. The patient is currently on heparin for anticoagulation. He will need to be switched over to oral Eliquis prior to discharge home. 14. Further recommendations will be made pending the patient's response to treatment. Thank you for the opportunity to help participate in the care of this patient. All recommendations and orders are per Dr. Martínez.
[2024-09-20] VITALS (36 sets, daily range): BP systolic 90–178; BP diastolic 51–99; PULSE 75–107; RESP 14–24; TEMP 36.6–38.3; O2SAT 86–100; BMI 28.5
[2024-09-20] MEDS: PIPERACILLIN/TAZO 3.375 GM in 0.9 % SODIUM CHLORIDE 50 ML IV ×3 (02:51→20:13)
[2024-09-20] MEDS: ACETAMINOPHEN 325MG TAB 650 MG PO (02:59)
--- NOTE | 2024-09-20 03:00 | PC.NURSE ---
Went in to wake pt up due to his oxygen saturation dropping. pt is warm to the touch, obtained temperature and its 100.9. pts blanket was removed and pt is also getting 650mg of acetaminophen
[2024-09-20] MEDS: 0.9 % SODIUM CHLORIDE 1000ML 1,000 ML 75 ML IV ×2 (03:05→18:43)
--- NOTE | 2024-09-20 03:10 | PC.NURSE ---
fan was placed in pts room and turned on low and thermostat was adjusted
[2024-09-20 05:28] LABS: Basophils % 0.2 % (0.1-2.0); Eosinophils # 0.4 Kmm3 (0.0-0.4); Eosinophils % 6.1 % (0.1-12.0); Hematocrit 30.9 % (42.0-52.0); Hemoglobin 10.3 g/dL (14.1-18.0); Immature Granulocytes # 0.03 10^3uL; Immature Granulocytes % 0.5 %; Lymphocytes # 0.5 K/mm3 (0.7-4.5); Lymphocytes % 7.6 % (10-50); Mean Corpuscular HGB Conc 33.3 g/dL (31.8-35.4); Mean Corpuscular Hemoglobin 30.2 pg (27.0-31.2); Mean Corpuscular Volume 90.6 fl (80-94); Mean Platelet Volume 9.8 fl (7.4-10.4); Monocytes # 0.3 K/mm3 (0.1-1.0); Monocytes % 4.7 % (1.7-9.3); Neutrophils # 5.2 K/mm3 (1.8-7.8); Neutrophils % 80.9 % (37.0-80.0); Nucleated Red Blood Cells # 0 10^3/uL; Nucleated Red Blood Cells % 0 %; Platelet Count 143 K/mm3 (142-424); Red Blood Count 3.41 M/mm3 (4.60-6.20); Red Cell Distribution Width 12.8 % (11.5-17.5); Red Cell Distribution Width-SD 42.6 fL; White Blood Count 6.4 K/mm3 (4.8-10.8)
[2024-09-20 05:31] LABS: Anion Gap 8.6 mEq/L (5-15); Blood Urea Nitrogen 34 mg/dl (9-20); Calcium 7.9 mg/dl (8.4-10.2); Carbon Dioxide 22 mmol/L (22.0-30.0); Chloride 112 mmol/L (98-107); Creatinine Clearance Estimated 41 mL/min (50-200); Estimated Glomerular Filt Rate 28 ml/min (>60); GFR (African American) 33 ML/MIN (>60); Glucose 82 mg/dl (74-100); MANUAL DIFFERENTIAL MANUAL DIFFERENTIAL (MANUAL DIFF); Potassium 3.6 mmoL/L (3.5-5.1); Sodium 139 mmol/L (136-145)
[2024-09-20 06:26] LABS: Atypical Lymphocytes % 3; Lymphocytes % 13 % (10-50); Neutrophils % 84 % (42-76); Total Cells Counted 100
--- NOTE | 2024-09-20 06:43 | PC.NURSE ---
pt alert and oriented x4. pt is only receiving maintance fluids at 75ml/hr. Pt still not requiring levophed at this time blood pressures have been in the normal range all shift. Pt denied any pain but said he just felt bad pt got a bath before getting back in bed last night. during the night pt began to run a low grade fever of 100.9. pt was given acetaminophen 650mg, blanket was removed and sheet placed over him, fan turned on, and thermostat turned down in the room. 30 mins after receiving acetaminophen 650mg and all other steps to help cool him down the window was opened up and the door to the room was open. pt has rested comfortably all night. when pt was in a deep sleep he desatted down to low 80s. pt was placed on 1lpm nc and has be satting in the high 90s. pt may potentially go down for bone biopsies on his feet today. pt glucose this am was 75 no sliding scale insulin was needed.
--- NOTE | 2024-09-20 06:47 | P.PN_ITS ---
Subjective *Date: 09/20/24 *Time: 08:08 Interval history: Podiatry saw patient he seemed to be improving some blood pressure stable this morning at 117/67. We cleaned and dressed b/l foot DFU's and re-evaluated Left 5th DFU apears to be stable to just monitor and hold on any surgical procedures for now. Ortho Exam (Inpt) Vital signs and Labs for Last 24 Hours: Temp Pulse Resp BP Pulse Ox O2 Del Method O2 Flow Rate 99.2 F 83 21 117/67 95 Room Air 1 09/20/24 04:00 09/20/24 06:00 09/20/24 06:00 09/20/24 06:00 09/20/24 06:00 09/20/24 06:00 09/20/24 05:00 Laboratory Results - last 24 hr 09/19/24 05:14: Total Counted 100, Neutrophils % (Manual) 90 H, Lymphocytes % (Manual) 3 L, Monocytes % (Manual) 3, Eosinophils % (Manual) 4 H, Platelet Estimate Normal, RBC Morphology Normal, ESR 44 H, C-Reactive Protein 129.4 H 09/19/24 11:05: POC Glucose 252 H 09/19/24 19:46: POC Glucose 215 H 09/20/24 05:09: WBC 6.4 D, RBC 3.41 L, Hgb 10.3 L, Hct 30.9 L, MCV 90.6, MCH 30.2, MCHC 33.3, RDW 12.8, Plt Count 143, MPV 9.8, Neut % (Auto) 80.9 H, Lymph % (Auto) 7.6 L, Laporte % (Auto) 4.7, Eos % (Auto) 6.1, Baso % (Auto) 0.2, Neut # (Auto) 5.2, Lymph # (Auto) 0.5 L, [place] # (Auto) 0.3, Eos # (Auto) 0.4, Baso # (Auto) 0.0, Total Counted 100, Neutrophils % (Manual) 84 H, Lymphocytes % (Manual) 13, Atypical Lymphs % 3, Sodium 139, Potassium 3.6, Chloride 112 H, Carbon Dioxide 22, Anion Gap 8.6, BUN 34 H, Creatinine 2.40 H, Estimated Creat Clear 41, Estimated GFR 28 L, Est GFR ( Amer) 33 L, Glucose 82, Calcium 7.9 L Temp Pulse Resp BP Pulse Ox 99.1 F 85 18 121/75 98 10/11/22 07:44 10/11/22 07:44 10/11/22 07:44 10/11/22 07:44 10/11/22 07:44 Laboratory Results - last 24 hr 10/10/22 17:09: Urine Color Dk yellow, Urine Appearance Cloudy, Urine pH 5.5, Ur Specific [place] 1.025, Urine Protein 2+, Urine Glucose (UA) 2+, Urine Ketones Trace, Urine Blood 3+, Urine Nitrate Positive, Urine Bilirubin Negative, Urine Urobilinogen 1.0, Ur Leukocyte Esterase 1+ A, Urine RBC 20-50, Urine WBC 20-50, Ur Squamous Epith Cells 3-5, Urine Bacteria 2+ 10/10/22 17:33: WBC 17.2 H, RBC 4.99, Hgb 15.5, Hct 47.4, MCV 95.0 H, MCH 31.1, MCHC 32.7, RDW 14.4, Plt Count 204, MPV 8.0, Neut % (Auto) 92.1 H, Lymph % (Auto) 2.7 L, Laporte % (Auto) 5.0, Eos % (Auto) 0.1, Baso % (Auto) 0.1, Neut # (Auto) 15.9 H, Lymph # (Auto) 0.5 L, Lap[place] # (Auto) 0.9, Eos # (Auto) 0.0, Baso # (Auto) 0.0, Total Counted 100, Neutrophils % (Manual) 91 H, Lymphocytes % (Manual) 8 L, Monocytes % (Manual) 1 L, Platelet Estimate Normal, RBC Morphology Normal 10/10/22 17:33: Sodium 138, Potassium 4.0, Chloride 100, Carbon Dioxide 25, Anion Gap 17.0 H, BUN 17, Creatinine 1.40 H, Estimated Creat Clear 73, Estimated GFR 52 L, Est GFR ( Amer) 63, Glucose 159 H, Calcium 9.0, Total Bilirubin 1.2, AST 32, ALT 26, Alkaline Phosphatase 92, Total Protein 7.1, Albumin 4.3, Globulin 2.8, Albumin/Globulin Ratio 1.5, Procalcitonin 0.302 10/10/22 17:33: Lactate 2.2 H 06/18/23 18:45: SARS-CoV-2 (PCR) Not detected, Influenza A Untype (PCR) Not detected, Influenza Type B (PCR) Not detected 10/10/22 22:10: Lactate 2.7 H 10/11/22 00:25: Lactate 1.4 10/11/22 05:35: WBC 14.0 H, RBC 4.43 L, Hgb 13.8 L D, Hct 41.7 L, MCV 94.2 H, MCH 31.1, MCHC 33.1, RDW 14.4, Plt Count 183, MPV 7.9, Neut % (Auto) 89.5 H, Lymph % (Auto) 5.3 L, Laporte % (Auto) 5.0, Eos % (Auto) 0.1, Baso % (Auto) 0.1, Neut # (Auto) 12.5 H, Lymph # (Auto) 0.7, Laporte # (Auto) 0.7, Eos # (Auto) 0.0, Baso # (Auto) 0.0, Total Counted 100, Neutrophils % (Manual) 85 H, Lymphocytes % (Manual) 11, Monocytes % (Manual) 4, Platelet Estimate Normal, RBC Morphology Normal 10/11/22 05:35: Sodium 139, Potassium 3.9, Chloride 105, Carbon Dioxide 24, Anion Gap 13.9, BUN 20, Creatinine 1.30 H, Estimated Creat Clear 77, Estimated GFR 57 L, Est GFR ( Amer) 68, Glucose 61 L D, Calcium 7.9 L 10/11/22 05:35: ESR 35 H 10/11/22 05:35: C-Reactive Protein 239.0 H I & O for Labs for Last 24 Hours: Intake & Output 09/17/24 09/18/24 09/19/24 09/20/24 23:59 23:59 23:59 23:59 Intake Total 3602.752 / 3602.752 4847.278 / 4847.278 3031.663 / 3031.663 578 / 578 Output Total 800 / 800 3070 / 3070 6005 / 6005 1295 / 1295 Balance 2802.752 / 2802.752 1777.278 / 1777.278 -2973.337 / -2973.337 -717 / - 717 Weight 187 lb 187 lb 198 lb 6.4 oz 199 lb 3.2 oz Intake & Output 10/08/22 10/09/22 10/10/22 10/11/22 23:59 23:59 23:59 23:59 Intake Total 480 / 480 Output Total 300 / 300 100 / 100 Balance -300 / -300 380 / 380 Weight 196 lb 1 oz 196 lb 0.913 oz Microbiology Reports for the Last 24 Hours: Microbiology 09/17/24 17:20 Blood Blood Culture - Preliminary NO GROWTH AFTER 48 HOURS 09/17/24 17:20 Urine,Clean Catch Urine Culture - Final No growth. Microbiology 10/10/22 17:09 Urine,Clean Catch Urine Culture - Preliminary Gram Negative Rods Constitutional: Present no acute distress and somnolent Head: Present normocephalic Neck: Present normal inspection Respiratory: Present normal respiratory effort and able to speak in complete sentences Cardiac: Present posterior tibial pulses present and pedal pulses present Comment:: Weakly palpable pedal pulses noted b/l DP and PT. CFT >4-5 seconds. Skin temp wnl proximal to cool distal b/l LE. No varicosities noted. No edema noted. ALVARO's performed 09/18/24- Findings :No evidence of significant obstructive peripheral vascular disease of the lower extremities -He has two Non-compressible's at B/L calves, B/L toes are low at 0.63 and low amp at 6mm on right and 11mm on left. -Patient would benefit from a runoff. GI: Present other (no obesity) Rectal (male): Present deferred (male): Present deferred Extremities: Present normal inspection; Absent normal capillary refill (delayed) Skin: Present dry and wounds Comment:: Right hallux dorsal toe DFU: 100% granular, 0.6 x 0.3 x 0.2cm, thru skin into subq. Right lateral ankle DFU: 100% granular, 3.0 x 2.8 x 0.2cm, thru skin into subq. Left 5th toe DFU, 1.5 x 1.5 x 0.2cm,no drainage noted, 100% granular. Left hallux amp clean dry and intact. No edema or SOI noted. Neuro: Present alert and awake Ankle: bilateral: normal inspection Feet/Toes: bilateral: deformity (pes cavus), bilateral: nail abnormalities, bilateral: Ingrown Toenail, bilateral: onychomycosis and bilateral: wound (S/p left hallux amputation, cellulitis, left fifth toe DFU, right hallux DFU, right ankle ulcer) Comments:: Metatarsus varus bilateral feet, the metatarsal bones deviated inward no pain noted with active or passive ROM of the ankle, STJ or midtarsal joints, gastroc- soleus equinus b/l. Right 4-5th shaft of metatarsal old fracture, no pain to palpation. Assessment and Plan *Assessment and plan (1) Cellulitis of left foot: Status: Acute Category: Medical Code(s): L03.116 - Cellulitis of left lower limb (2) Diabetic ulcer of right foot: Problem Comment: Right 5th toe DFU probes to bone Status: Acute Qualifiers: Diabetes mellitus type: type 2 Diabetic foot ulcer location: other Non-pressure ulcer stage: with fat layer exposed Qualified Code(s): E11.621 - Type 2 diabetes mellitus with foot ulcer; L97.512 - Non-pressure chronic ulcer of other part of right foot with fat layer exposed Category: Medical Code(s): E11.621 - Type 2 diabetes mellitus with foot ulcer; L97.519 - Non-pressure chronic ulcer of other part of right foot with unspecified severity (3) Diabetic ulcer of left foot: Status: Acute Qualifiers: Diabetes mellitus type: type 2 Diabetic foot ulcer location: other Non-pressure ulcer stage: with fat layer exposed Qualified Code(s): E11.621 - Type 2 diabetes mellitus with foot ulcer; L97.522 - Non-pressure chronic ulcer of other part of left foot with fat layer exposed Category: Medical Code(s): E11.621 - Type 2 diabetes mellitus with foot ulcer; L97.529 - Non-pressure chronic ulcer of other part of left foot with unspecified severity (4) Diabetes mellitus with diabetic neuropathy: Status: Acute Qualifiers: Diabetes mellitus skilled nursing insulin use: without skilled nursing use Diabetes mellitus type: type 2 Qualified Code(s): E11.40 - Type 2 diabetes mellitus with diabetic neuropathy, unspecified Category: Medical Code(s): E11.40 - Type 2 diabetes mellitus with diabetic neuropathy, unspecified (5) PAD (peripheral artery disease): Status: Acute Category: Medical Code(s): I73.9 - Peripheral vascular disease, unspecified (6) History of amputation of great toe: Status: Acute Category: Surgical Code(s): Z89.419 - Acquired absence of unspecified great toe (7) Skin ulcer of right great toe: Status: Acute Qualifiers: Non-pressure ulcer stage: limited to breakdown of skin Qualified Code(s): L97.511 - Non-pressure chronic ulcer of other part of right foot limited to breakdown of skin Category: Medical Code(s): L97.519 - Non-pressure chronic ulcer of other part of right foot with unspecified severity (8) Skin ulcer of third toe of left foot: Status: Acute Qualifiers: Non-pressure ulcer stage: limited to breakdown of skin Qualified Code(s): L97.521 - Non-pressure chronic ulcer of other part of left foot limited to breakdown of skin Category: Medical Code(s): L97.529 - Non-pressure chronic ulcer of other part of left foot with unspecified severity (9) Leg wound, right: Status: Acute Qualifiers: Encounter type: initial encounter Qualified Code(s): S81.801A - Unspecified open wound, right lower leg, initial encounter Category: Medical Code(s): S81.801A - Unspecified open wound, right lower leg, initial encounter (10) Osteoarthritis: Status: Acute Qualifiers: Laterality: right Osteoarthritis location: foot Osteoarthritis type: primary Qualified Code(s): M19.071 - Primary osteoarthritis, right ankle and foot Category: Medical Code(s): M19.90 - Unspecified osteoarthritis, unspecified site (11) Diabetic foot: Status: Acute Category: Medical Code(s): E11.8 - Type 2 diabetes mellitus with unspecified complications (12) Status post amputation of left great toe: Problem Comment: Surgery, 08/01/24: s/p Right hallux and lateral ankle DFU wound debridement x2, Left 5th toe DFU wound debridement, Left foot irrigation and debridement, hallux amputation Status: Acute Category: Surgical Code(s): Z89.412 - Acquired absence of left great toe Plan 09/20/24 Viewed labs 09/17/24 WBC 14.7 BUN 39, creatinine 2.50, GFR 26, glucose 256, CRP 298.7 09/19/24 WBC 9.1, bun 36 creatinine 2.20, GFR 31 glucose 80, ESR 44, CRP 129.4 09/20/24 WBC 6.4, bun 34, creatinine 2.40, GFR 28, glucose 82 09/18/24: Left foot 3V X-rays- FINDINGS: LEFT FOOT Three views of the left foot demonstrate prior amputation of the 1st digit. There is hammertoe deformity of the 2nd digit. There appears to be sclerosis or calcification over the dorsal aspect of the 2nd digit. There is no evidence of bony erosion of the 5th digit. There is no acute fracture or dislocation. The visualized joint spaces are normally aligned. Overlying soft tissue edema is noted of the 5th digit. IMPRESSION: Soft tissue edema of the 5th digit without evidence of bony erosion. Reviewed, Interpreted and Dictated by Hermes Zepeda MD Transcribed by Isaura Billy Reviewed ALVARO's 09/18/24: FINDINGS: ANKLE-BRACHIAL PRESSURE INDICES Pressure indices are as follows: RIGHT LOWER EXTREMITY: Ankle-brachial pressure index: 1.64 Comments: Normal LEFT LOWER EXTREMITY: Ankle-brachial pressure index: 1.67 Comments: Normal IMPRESSION: No evidence of significant obstructive peripheral vascular disease of the lower extremities Reviewed, Interpreted and Dictated by Hermes Zepeda MD Transcribed by Isaura Billy -He has two Non-compressible's at B/L calves, B/L toes are low at 0.63 and low amp at 6mm on right and 11mm on left. Left foot CT wo con: 09/18/24: FINDINGS: There is marked hypertrophic osteophyte formation along the dorsal aspect of the intertarsal joints consistent with advanced osteoarthritis. There is degenerative osteochondral defect in the lateral talar dome. Small intra-articular loose body are identified in the medial mortise measuring 3 mm. There has been amputation of the first digit with overlying soft tissue edema. There is fragmentation of the second distal phalange which may be due to old trauma. There is no evidence of bony erosion or periosteal reaction of the fifth digit. IMPRESSION:Marked hypertrophic changes of osteoarthritis of the dorsal intertarsal joints. Osteochondral defect of the lateral talar dome. Prior amputation of the first digit with overlying soft tissue edema. Small intra- articular loose body as above.Reviewed, Interpreted and Dictated by Hermes Zepeda MD Transcribed by Mariana Anna S/P Surgery, 08/01/24: s/p Right hallux and lateral ankle DFU wound debridement x2, Left 5th toe DFU wound debridement, Left foot irrigation and debridement, hallux amputation Plan: -Patient seems to be overall improving today, he was alert and responding appro priately. -Left 5th ulcer appears to have less erythema and edema. He still noted tenderness. -B/L DFU noted, no debridement done today. See PE skin for details/measurements. -B/L foot/ankle dressing changed. -Betadine soaked gauze, DSD applied. -Continue IV abx per Dr Grissom: broad spectrum coverage: Vanco, Zosyn. -CT left foot series 3 image 70 there appears to be a questionable erosion on the left proximal phalanx head laterally. Report read as no osteomyelitis or cortical erosions. -Patient's labs improving and his overall appearance improving, will just monitor and hold off on any surgical procedures for now. -We discussed with the patient that if his symptoms progress then we would revisit the idea and consider bone biopsy or left 5th toe amputation. Patient agreed to this. -Will hold on Podiatry procedures, as patient needs heart cath at some point while inpatient. -Podiatry will continue to follow, he will need a one week follow-up appointment when discharged. -Daily dressing changes with nursing: Beatadine soaked gauze, kerlix, rolando wrap -He will need placement in a SNF or assistance at home -He lives alone and due to his health will not be able to care for himself properly -PWB in b/l post op shoes, walker. -All order per Dr. Trujillo
--- NOTE | 2024-09-20 08:09 | EXP.ACUTE.PN ---
Subjective *Date: 09/20/24 *Time: 08:30 Interval history: Patient is feeling better today. He has been weaned off the norepinephrine drip. His blood pressure has been stable. He has some pain in his feet but denies any other pain. He slept and is eating well this morning. Medical Exam Vital signs and Labs for Last 24 Hours: Vital Signs Temp Pulse Pulse Resp BP BP Pulse Ox 09/20/24 06:50 75 18 110/71 96 09/20/24 06:49 09/20/24 06:49 79 18 110/71 96 09/20/24 06:00 83 21 117/67 95 09/20/24 05:00 09/20/24 05:00 94 H 18 96/59 L 96 09/20/24 04:00 99.2 F 88 22 98/56 L 93 L 09/20/24 04:00 90 09/20/24 04:00 86 L 09/20/24 03:00 88 21 106/64 L 93 L 09/20/24 03:00 09/20/24 02:59 100.9 F H 09/20/24 02:00 85 22 90/51 L 93 L 09/20/24 01:00 09/20/24 01:00 109/60 L 09/20/24 01:00 87 22 109/60 L 92 L 09/20/24 00:00 104/63 L 09/20/24 00:00 98.9 F 84 22 104/63 L 94 L 09/20/24 00:00 107 H 94 L 09/20/24 00:00 90 09/19/24 23:00 09/19/24 23:00 90 18 107/74 L 96 09/19/24 22:00 90 19 111/65 97 09/19/24 21:00 09/19/24 21:00 93 H 18 124/78 96 09/19/24 20:00 102 H 09/19/24 20:00 98.5 F 103 H 24 128/79 94 L 09/19/24 19:56 95 H 96 09/19/24 19:00 84 22 142/85 H 95 09/19/24 19:00 90 18 154/92 H 94 L 09/19/24 18:30 93 H 22 149/87 H 97 09/19/24 18:16 09/19/24 18:15 97 H 22 145/83 H 99 09/19/24 18:00 91 H 22 162/112 H 100 09/19/24 17:45 98 H 15 129/82 99 09/19/24 17:45 94 H 18 129/82 99 09/19/24 17:39 101 H 16 99 09/19/24 17:30 92 H 17 141/78 H 99 09/19/24 17:01 95 H 18 143/77 H 97 09/19/24 17:00 09/19/24 16:45 98.5 F 95 H 18 116/74 99 09/19/24 16:30 92 H 19 120/101 H 97 09/19/24 16:27 91 H 21 90 L 09/19/24 16:20 97 09/19/24 16:01 72 110/64 93 L 09/19/24 16:00 89 09/19/24 15:31 52 L 150/92 H 100 09/19/24 15:15 127/74 09/19/24 15:00 84 18 102/63 L 92 L 09/19/24 14:17 17 126/81 09/19/24 14:15 17 127/86 93 L 09/19/24 14:07 09/19/24 14:01 84 21 145/77 H 98 09/19/24 14:00 93 H 18 92 L 09/19/24 13:54 18 116/62 96 09/19/24 13:45 84 20 120/81 97 09/19/24 13:40 85 19 120/79 98 09/19/24 13:30 83 21 122/75 98 09/19/24 13:15 84 22 113/67 98 09/19/24 13:00 88 21 120/84 98 09/19/24 12:45 86 17 100/68 L 98 09/19/24 12:30 86 22 108/67 L 97 09/19/24 12:15 88 21 88/60 L 97 09/19/24 12:14 09/19/24 12:00 86 09/19/24 12:00 98.1 F 09/19/24 12:00 83 23 93/60 L 98 09/19/24 11:49 97 09/19/24 11:45 90 21 94/56 L 97 09/19/24 11:30 89 24 109/65 L 96 09/19/24 11:00 93 H 21 105/60 L 96 09/19/24 10:45 90 22 110/57 L 94 L 09/19/24 10:40 89 21 96/50 L 94 L 09/19/24 10:35 84 20 109/78 L 94 L 09/19/24 10:30 85 19 107/65 L 95 09/19/24 10:25 88 21 86/51 L 95 09/19/24 10:22 09/19/24 10:20 83 22 85/52 L 94 L 09/19/24 10:15 83 21 87/48 L 94 L 09/19/24 10:10 86 21 84/47 L 93 L 09/19/24 10:05 92 H 21 91/50 L 93 L 09/19/24 10:00 85 19 80/48 L 92 L 09/19/24 09:55 85 22 98/58 L 95 09/19/24 09:50 83 21 89/50 L 94 L 09/19/24 09:45 88 20 84/51 L 94 L 09/19/24 09:40 79/48 L 09/19/24 09:30 89 20 76/46 L 94 L 09/19/24 09:15 92 H 17 74/45 L 94 L 09/19/24 09:15 90 70/40 L 09/19/24 09:10 94 H 22 69/39 L 95 09/19/24 09:08 93 H 20 69/42 L 95 09/19/24 09:05 96 H 17 86/53 L 95 09/19/24 09:00 09/19/24 08:45 97 H 19 84/55 L 95 09/19/24 08:30 104 H 22 91/55 L 95 09/19/24 08:15 111 H 26 H 87/63 L 90 L O2 Del Method O2 Flow Rate 09/20/24 06:50 Nasal Cannula 1 09/20/24 06:49 Nasal Cannula 1 09/20/24 06:49 Nasal Cannula 1 09/20/24 06:00 Room Air 09/20/24 05:00 Nasal Cannula 1 09/20/24 05:00 Nasal Cannula 1 09/20/24 04:00 Room Air 09/20/24 04:00 09/20/24 04:00 Nasal Cannula 09/20/24 03:00 Room Air 09/20/24 03:00 Room Air 09/20/24 02:59 09/20/24 02:00 Room Air 09/20/24 01:00 Room Air 09/20/24 01:00 09/20/24 01:00 Room Air 09/20/24 00:00 09/20/24 00:00 Room Air 09/20/24 00:00 Room Air 09/20/24 00:00 09/19/24 23:00 Room Air 09/19/24 23:00 Room Air 09/19/24 22:00 Room Air 09/19/24 21:00 Room Air 09/19/24 21:00 Room Air 09/19/24 20:00 09/19/24 20:00 Room Air 09/19/24 19:56 Room Air 09/19/24 19:00 Room Air 09/19/24 19:00 Room Air 09/19/24 18:30 Room Air 09/19/24 18:16 Room Air 09/19/24 18:15 Room Air 09/19/24 18:00 Room Air 09/19/24 17:45 Room Air 09/19/24 17:45 Room Air 09/19/24 17:39 09/19/24 17:30 09/19/24 17:01 Room Air 09/19/24 17:00 Room Air 09/19/24 16:45 Room Air 09/19/24 16:30 Room Air 09/19/24 16:27 09/19/24 16:20 Room Air 09/19/24 16:01 Room Air 09/19/24 16:00 09/19/24 15:31 Room Air 09/19/24 15:15 09/19/24 15:00 Room Air 09/19/24 14:17 Room Air 09/19/24 14:15 Room Air 09/19/24 14:07 Room Air 09/19/24 14:01 Room Air 09/19/24 14:00 Room Air 09/19/24 13:54 Room Air 09/19/24 13:45 Room Air 09/19/24 13:40 Room Air 09/19/24 13:30 Room Air 09/19/24 13:15 Room Air 09/19/24 13:00 Room Air 09/19/24 12:45 Room Air 09/19/24 12:30 Room Air 09/19/24 12:15 Room Air 09/19/24 12:14 Room Air 09/19/24 12:00 09/19/24 12:00 09/19/24 12:00 Room Air 09/19/24 11:49 Room Air 09/19/24 11:45 Room Air 09/19/24 11:30 Room Air 09/19/24 11:00 Room Air 09/19/24 10:45 Room Air 09/19/24 10:40 Room Air 09/19/24 10:35 Room Air 09/19/24 10:30 Room Air 09/19/24 10:25 Room Air 09/19/24 10:22 Room Air 09/19/24 10:20 Room Air 09/19/24 10:15 Room Air 09/19/24 10:10 Room Air 09/19/24 10:05 Room Air 09/19/24 10:00 Room Air 09/19/24 09:55 Room Air 09/19/24 09:50 Room Air 09/19/24 09:45 Room Air 09/19/24 09:40 09/19/24 09:30 09/19/24 09:15 Room Air 09/19/24 09:15 09/19/24 09:10 Room Air 09/19/24 09:08 Room Air 09/19/24 09:05 Room Air 09/19/24 09:00 Room Air 09/19/24 08:45 Room Air 09/19/24 08:30 Room Air 09/19/24 08:15 Room Air Intake and Output 09/19/24 09/20/24 09/20/24 19:59 03:59 11:59 Intake Total 1795.501 / 3182.501 826 / 3182.501 561 / 3182.501 Output Total 3205 / 5325 1370 / 5325 750 / 5325 Balance -1409.499 / -2142.499 -544 / -2142.499 -189 / -2142.499 Intake: Intake, Oral Amount 535 / 535 Intake, Total IV Amount 1260.501 / 2647.501 826 / 2647.501 561 / 2647.501 0.9 % Sodium Chloride 1000ML 1, 1243 / 2082 578 / 2082 261 / 2082 000 ml @ 75 mls/hr IV .[id number] [facility] Rx#:[id number] Piperacillin/Tazo 3.375 gm In 0 50 / 50 .9 % Sodium Chloride 50 ml @ 100 mls/hr IV ONCE ONE Rx#: [id number] Vancomycin/Water For Inj (Peg) 248 / 498 250 / 498 1.25 gm In 250 ml @ 125 mls/hr IV Q24H [facility] Rx#:[id number] Output: Output, Urine Amount 1250 / 1500 250 / 1500 Output, Urine Amount (Catheter) 1954 / 3825 1370 / 3825 500 / 3825 Henriquez 1954 / 3825 1370 / 3825 500 / 3825 Other: Number of Unmeasured Voids 0 0 Weight 199 lb 3.2 oz Patient Weight 09/20/24 11:59 Weight 199 lb 3.2 oz Laboratory Results - last 24 hr 09/19/24 11:05: POC Glucose 252 H 09/19/24 19:46: POC Glucose 215 H 09/20/24 05:09: WBC 6.4 D, RBC 3.41 L, Hgb 10.3 L, Hct 30.9 L, MCV 90.6, MCH 30.2, MCHC 33.3, RDW 12.8, Plt Count 143, MPV 9.8, Neut % (Auto) 80.9 H, Lymph % (Auto) 7.6 L, Woods % (Auto) 4.7, Eos % (Auto) 6.1, Baso % (Auto) 0.2, Neut # (Auto) 5.2, Lymph # (Auto) 0.5 L, Woods # (Auto) 0.3, Eos # (Auto) 0.4, Baso # (Auto) 0.0, Total Counted 100, Neutrophils % (Manual) 84 H, Lymphocytes % (Manual) 13, Atypical Lymphs % 3, Sodium 139, Potassium 3.6, Chloride 112 H, Carbon Dioxide 22, Anion Gap 8.6, BUN 34 H, Creatinine 2.40 H, Estimated Creat Clear 41, Estimated GFR 28 L, Est GFR ( Amer) 33 L, Glucose 82, Calcium 7.9 L I & O for Labs for Last 24 Hours: Intake & Output 09/17/24 09/18/24 09/19/24 09/20/24 11:59 11:59 11:59 11:59 Intake Total 6465.544 / 6465.544 2972.648 / 2972.648 3182.501 / 3182.501 Output Total 2069 / 2069 3775 / 3775 5325 / 5325 Balance 4395.544 / 4395.544 -802.352 / -802.352 -2142.499 / -2142.499 Weight 187 lb 198 lb 6.4 oz 199 lb 3.2 oz Microbiology Reports for the Last 24 Hours: Microbiology 09/18/24 07:54 Toe,Left Fifth Gram Stain - Final 09/18/24 07:54 Toe,Left Fifth Wound Culture - Final Staphylococcus aureus 09/17/24 17:20 Blood Blood Culture - Preliminary NO GROWTH AFTER 48 HOURS 09/17/24 17:20 Urine,Clean Catch Urine Culture - Final No growth. Constitutional: Present no acute distress Respiratory: Present normal respiratory effort Cardiac: Present Reg Rate and Rhythm Comment:: Dressings in place over both feet Neuro: Present Grossly Intact and moves all extremities Assessment and Plan *Assessment and plan (1) Cellulitis of left foot: Status: Acute Category: Medical Code(s): L03.116 - Cellulitis of left lower limb (2) Diabetic ulcer of right foot: Problem Comment: Right 5th toe DFU probes to bone Status: Acute Qualifiers: Diabetes mellitus type: type 2 Diabetic foot ulcer location: other Non-pressure ulcer stage: with fat layer exposed Qualified Code(s): E11.621 - Type 2 diabetes mellitus with foot ulcer; L97.512 - Non-pressure chronic ulcer of other part of right foot with fat layer exposed Category: Medical Code(s): E11.621 - Type 2 diabetes mellitus with foot ulcer; L97.519 - Non-pressure chronic ulcer of other part of right foot with unspecified severity (3) Diabetic ulcer of left foot: Status: Acute Qualifiers: Diabetes mellitus type: type 2 Diabetic foot ulcer location: other Non-pressure ulcer stage: with fat layer exposed Qualified Code(s): E11.621 - Type 2 diabetes mellitus with foot ulcer; L97.522 - Non-pressure chronic ulcer of other part of left foot with fat layer exposed Category: Medical Code(s): E11.621 - Type 2 diabetes mellitus with foot ulcer; L97.529 - Non-pressure chronic ulcer of other part of left foot with unspecified severity (4) Diabetes mellitus with diabetic neuropathy: Status: Acute Qualifiers: Diabetes mellitus terminologist insulin use: without penitentiary use Diabetes mellitus type: type 2 Qualified Code(s): E11.40 - Type 2 diabetes mellitus with diabetic neuropathy, unspecified Category: Medical Code(s): E11.40 - Type 2 diabetes mellitus with diabetic neuropathy, unspecified (5) PAD (peripheral artery disease): Status: Acute Category: Medical Code(s): I73.9 - Peripheral vascular disease, unspecified (6) History of amputation of great toe: Status: Acute Category: Surgical Code(s): Z89.419 - Acquired absence of unspecified great toe (7) Skin ulcer of right great toe: Status: Acute Qualifiers: Non-pressure ulcer stage: limited to breakdown of skin Qualified Code(s): L97.511 - Non-pressure chronic ulcer of other part of right foot limited to breakdown of skin Category: Medical Code(s): L97.519 - Non-pressure chronic ulcer of other part of right foot with unspecified severity (8) Skin ulcer of third toe of left foot: Status: Acute Qualifiers: Non-pressure ulcer stage: limited to breakdown of skin Qualified Code(s): L97.521 - Non-pressure chronic ulcer of other part of left foot limited to breakdown of skin Category: Medical Code(s): L97.529 - Non-pressure chronic ulcer of other part of left foot with unspecified severity (9) Leg wound, right: Status: Acute Qualifiers: Encounter type: initial encounter Qualified Code(s): S81.801A - Unspecified open wound, right lower leg, initial encounter Category: Medical Code(s): S81.801A - Unspecified open wound, right lower leg, initial encounter (10) Osteoarthritis: Status: Acute Qualifiers: Laterality: right Osteoarthritis location: foot Osteoarthritis type: primary Qualified Code(s): M19.071 - Primary osteoarthritis, right ankle and foot Category: Medical Code(s): M19.90 - Unspecified osteoarthritis, unspecified site (11) Diabetic foot: Status: Acute Category: Medical Code(s): E11.8 - Type 2 diabetes mellitus with unspecified complications (12) Status post amputation of left great toe: Problem Comment: Surgery, 08/01/24: s/p Right hallux and lateral ankle DFU wound debridement x2, Left 5th toe DFU wound debridement, Left foot irrigation and debridement, hallux amputation Status: Acute Category: Surgical Code(s): Z89.412 - Acquired absence of left great toe (13) Septic shock: Status: Acute Category: Medical Code(s): A41.9 - Sepsis, unspecified organism; R65.21 - Severe sepsis with septic shock (14) Hypotension: Status: Acute Qualifiers: Hypotension type: hypotension due to hypovolemia Qualified Code(s): E86.1 - Hypovolemia Category: Medical Code(s): I95.9 - Hypotension, unspecified (15) Acute kidney injury: Status: Resolved Category: Medical Code(s): N17.9 - Acute kidney failure, unspecified (16) Hypomagnesemia: Status: Acute Category: Medical Code(s): E83.42 - Hypomagnesemia (17) NSTEMI (non-ST elevated myocardial infarction): Status: Acute Category: Medical Code(s): I21.4 - Non-ST elevation (NSTEMI) myocardial infarction (18) Heart failure with reduced ejection fraction: Status: Acute Category: Medical Code(s): I50.20 - Unspecified systolic (congestive) heart failure (19) Diabetes mellitus: Status: Chronic Qualifiers: Diabetes mellitus complication status: without complication Diabetes mellitus penitentiary insulin use: without penitentiary use Diabetes mellitus type: type 2 Qualified Code(s): E11.9 - Type 2 diabetes mellitus without complications Category: Medical Code(s): E11.9 - Type 2 diabetes mellitus without complications Plan Renal function is still elevated. Blood pressure has normalized. Still awaiting blood and urine cultures. Left fifth toe culture is growing MRSA. Cardiology does not want to perform a heart cath during this hospitalization once his kidney function improves. Podiatry saw the patient this morning and they are going to hold on any surgical procedures for now.
[2024-09-20] MEDS: DOCUSATE SODIUM 10 ML/UDC UDC PO ×2 (08:23→20:14)
[2024-09-20] MEDS: HEPARIN SODIUM 5,000 UNIT/ML VIAL 5000 UNIT SUBCUT ×2 (08:23→20:14)
[2024-09-20 11:10] LABS: POC Glucose,Bedside 132 (70-110)
--- NOTE | 2024-09-20 11:30 | SW/DCPLANNER ---
Addendum entered by Theresa Schmitz 09/21/24 11:22: I have updated Henna that pending midline placement patient could be ready for discharge this afternoon. Addendum entered by Theresa Schmitz 09/20/24 13:46: Henna w/ [facility] is able to accept this patient once medically stable for discharge. Original Note: I spoke w/ this patient regarding plans once medically stable for discharge. PT/OT evaluated patient and recommended SNF level of care. Patient has been to [facility] in the past and prefers to return back to this facility. Patient is agreeable to placement and understand [facility] level of care under Medicaid. I will continue to follow up w/ patient, MD and facility. Discharge date is unknown at this time.
--- NOTE | 2024-09-20 12:04 | PC.NURSE ---
pt to surgery via wheel chair with Surgery RN @[id number].
--- NOTE | 2024-09-20 14:06 | SUR.OPER ---
1338- pt having procedure under local only. V/S taken q10 min and entered in under sedation vital signs.
[2024-09-20] MEDS: BUPIVACAINE 0.5% 30ML VIAL 150 MG (14:18)
[2024-09-20] MEDS: GENTAMICIN 80 MG/2 ML VIAL (14:18)
[2024-09-20] MEDS: VANCOMYCIN 1000MG VIAL 1000 MG (14:20)
--- NOTE | 2024-09-20 14:34 | XR_ITS ---
PROCEDURE INFORMATION: Exam: XR Left Foot Exam date and time: 09/20/2024 4:40 PM Age: 63 years old Clinical indication: Other: S/P L 5th toe amp TECHNIQUE: Imaging protocol: Radiologic exam of the left foot. Views: 3 or more views. COMPARISON: CT FOOT LT WO CON 09/18/2024 2:11 PM FINDINGS: Bones/joints: Recent amputation majority of the 5th phalanx. With small residual fragment involving the base of the 5th proximal phalanx. Prior amputation 1st phalanx. Moderate degenerative changes throughout the midfoot with joint space narrowing, subchondral sclerosis and marginal spurring. No osteolytic or destructive bone changes. Soft tissues: Normal. IMPRESSION: Postoperative and degenerative changes left foot. No acute bony abnormalities.
--- NOTE | 2024-09-20 14:35 | P.OP_ITS ---
Date of procedure: 09/20/24 Pre-op Diagnosis:: B/L DFU (right hallux, left 3rd toe, left 5th toe) Left 5th toe MRSA, OM Post-op Diagnosis:: Same Procedure performed:: Left 5th toe amputation Left 3rd toe wound debridement Right hallux wound debridement Surgeon:: Odette Trujillo DPM Anesthesia: local (20cc 0.5% marcaine plain) Estimated blood loss (mL): 10 Clinical Note:: Indications: Patient is a 63-year-old diabetic male well-known to the podiatry service. B/l foot x-rays from 09/17- and left foot CT 09/18 were reviewed and discussed with the patient. Images show no obvious cortical erosion or osteomyelitis but suspicious for left proximal phalanx early changes. Report read as negative but I was suspicious given clinical findings and open left fifth toe ulcer that probes deep to bone. We discussed conservative versus surgical treatment options. Conservative treatment options include local wound care, oral and IV antibiotics, change in shoe wear, taping/padding, and off- loading. We discussed surgical intervention for bilateral foot wound debridement, I&D, deep biopsies, left fifth toe amp. The patient understands that there is a chance that the foot may change shape after surgery. Patient also understands that they could have wound healing complications including keiko yed healing and infection. We discussed that if the wound does not heal, it is possible that they may need a more proximal amputation and could result in further loss of digits, loss of partial foot or loss of leg. We discussed the risks and benefits in great detail. Other surgical risks include: prolonged pain and swelling, further infection requiring oral or IV antibiotics, delay in healing of soft tissue or bone, nerve or blood vessel damage, CRPS/RSD, DVT/PE, anesthesia complications, and even . All questions answered. Patient verbalized understanding and agreed to proceed. Verbal and written consent obtained. Operative findings:: Diabetic foot ulcers noted to the right dorsal hallux, left lateral third toe, left lateral fifth toe. The ulcer is extended through skin into subcutaneous tissue except the left fifth toe wound had exposed phalanx bone. The right hallux and left third toe were sharply excisionally debrided through skin into subcu. Due to the depth of the left fifth toe ulcer decision made to perform a toe amputation. The middle and proximal phalanx were both soft and crumbly with changes consistent with early osteomyelitis. No deep sinus tracking or purulence noted past the metatarsal. Metatarsal head intact with no obvious signs of infection. Overall prognosis: Fair. Infection did appear localized to the fifth diabetic foot ulcer and fifth PIPJ. Operative note:: On this date and time patient was deemed an appropriate surgical candidate. With informed consent signed, the patient was taken to the operating theater. The patient was positioned supine on stretcher. No general anesthesia was induced. No tourniquet used. IV Zosyn given. IV vancomycin scheduled on floor. Bilateral feet prepped and draped in a normal sterile fashion. Pre-op left fifth toe block given with 10 cc 0.5% marcaine plain. Right foot hallux wound debridement: Attention was directed to the right hallux where a diabetic foot ulcer was noted. Curette used to sharply excisionally debride wound full-thickness through skin into subcutaneous tissue. Post debridement wound was 100% granular and measured 2.1 x 1.6 x 0.1 cm. No purulence malodor or signs of infection noted. Left third toe wound debridement: Attention was directed to left third lateral toe where diabetic foot ulcer was noted. Curette and 15 blade were used to sharply excisionally debride the wound full-thickness through skin into subcutaneous tissue. Postdebridement wound was 100% granular and measured 1.3 x 0.8 x 0.1 cm. No purulence malodor or signs of infection noted. Left fifth toe amputation: Attention was directed to the fifth toe where diabetic foot ulcer noted which probes to bone. A fishmouth incision was mapped out around the diabetic foot ulcer. Dissection full-thickness down to the level of the bone. The ulcer was removed along with the distal phalanx. It was sent to pathology specimen. Attention was directed to the middle and proximal phalanx which were soft and crumbly and had cortical changes consistent with osteomyelitis. Rongeur was used to resect the bone and a piece was sent for bone culture and to bone pathology. Due to the crumbly nature of the bone. The proximal phalanx was not removed in total. Instead it was piecemeal removed. No purulence, malodor or changes extending proximal past the metatarsal head. Wounds were flushed with gentamicin irrigation. Vancomycin powder inserted to the left fifth toe amputation site. Nylon used to close the skin. Pre-op left forefoot block given with 10 cc 0.5% marcaine plain at the end of the case. Betadine soaked gauze applied to the incision site and all wounds, followed by dry sterile dressing. Patient appeared to tolerate procedure and local anesthesia well without complication. He was transferred back to the floor with vital signs stable and neurovascular status at preop baseline. Materials: 1 g vancomycin powder, nylon Plan: Continue IV antibiotics per PCP.. Maintaining dressing clean dry and intact. Plan for nursing daily dressing changes: Betadine soaked gauze, dry gauze, Reid, Chi. FWB in postop shoe to the right foot. PWB and short fracture boot to the left foot. Upon discharge, whether that to a SNF/home: Will need daily dressing changes as above. Plan for podiatry follow-up in 1 week. Condition: stable Disposition: floor Specimens:: Left fifth toe bone culture Left fifth toe bone path Left toe path Complications:: None
--- NOTE | 2024-09-20 14:36 | PC.NURSE ---
pt back from surgery via stretcher to room 261 @[id number]
--- NOTE | 2024-09-20 14:46 | EXP.CARD.PN ---
Subjective Subjective Date: 09/20/24 Time: 10:00 Principal diagnosis: hypotension, non-stemi Interval history: This is a 63-year-old gentleman who presented to the emergency department complaints of nausea and vomiting. He was found to have an elevated troponin consistent with a non-STEMI as well as an CRISTEL and elevated lactate. He is currently getting IV antibiotics. The patient was initially hypotensive and has been on a Levophed drip. This was stopped yesterday around 3 PM and he has remained off of his Levophed drip at this time. His blood pressure is acceptable today. He denies any chest pain or pressure. He denies any shortness of breath or edema. He denies any fever, chills, nausea, vomiting or diarrhea today. He does have known HFrEF with an ejection fraction of 45%. Exam Data for Last 24 hours Vital signs and Labs for Last 24 Hours: Temp Pulse Resp BP Pulse Ox O2 Del Method O2 Flow Rate 98.1 F 79 16 138/81 100 Room Air 1 09/20/24 14:09/20/24 14:09/20/24 14:09/20/24 14:09/20/24 14:09/20/24 14:09/20/24 09:15 Laboratory Results - last 24 hr 09/19/24 19:46: POC Glucose 215 H 09/20/24 05:09: WBC 6.4 D, RBC 3.41 L, Hgb 10.3 L, Hct 30.9 L, MCV 90.6, MCH 30.2, MCHC 33.3, RDW 12.8, Plt Count 143, MPV 9.8, Neut % (Auto) 80.9 H, Lymph % (Auto) 7.6 L, [place] % (Auto) 4.7, Eos % (Auto) 6.1, Baso % (Auto) 0.2, Neut # (Auto) 5.2, Lymph # (Auto) 0.5 L, [place] # (Auto) 0.3, Eos # (Auto) 0.4, Baso # (Auto) 0.0, Total Counted 100, Neutrophils % (Manual) 84 H, Lymphocytes % (Manual) 13, Atypical Lymphs % 3, Sodium 139, Potassium 3.6, Chloride 112 H, Carbon Dioxide 22, Anion Gap 8.6, BUN 34 H, Creatinine 2.40 H, Estimated Creat Clear 41, Estimated GFR 28 L, Est GFR ( Amer) 33 L, Glucose 82, Calcium 7.9 L 09/20/24 10:55: POC Glucose 132 H I & O for Last 24 hours: Intake & Output 09/17/24 09/18/24 09/19/24 09/20/24 23:59 23:59 23:59 23:59 Intake Total 3602.752 / 3602.752 4847.278 / 4847.278 3031.663 / 3031.663 1674 / 1674 Output Total 800 / 820 3070 / 3070 6005 / 6075 1680 / 1680 Balance 2802.752 / 2782.752 1777.278 / 1777.278 -2973.337 / -3043.337 -6 / -6 Weight 187 lb 187 lb 198 lb 6.4 oz 199 lb 3.002 oz Microbiology Reports for the Last 24 Hours: Microbiology 09/19/24 11:20 Blood Blood Culture - Preliminary NO GROWTH AFTER 24 HOURS 09/19/24 11:15 Blood Blood Culture - Preliminary NO GROWTH AFTER 24 HOURS 09/18/24 07:54 Toe,Left Fifth Gram Stain - Final 09/18/24 07:54 Toe,Left Fifth Wound Culture - Final Staphylococcus aureus 09/17/24 17:20 Blood Blood Culture - Preliminary NO GROWTH AFTER 48 HOURS Constitutional Constitutional: no acute distress and average body habitus *Routine HEENT Exam Head: Present normocephalic and atraumatic ENT: Present mucous membranes moist *Routine Neck Exam Neck: Present supple, full ROM and normal carotid upstroke; Absent JVD, carotid bruit or lymphadenopathy *Routine Respiratory Exam Respiratory: Present CTA bilaterally, normal respiratory effort, able to speak in complete sentences and symmetric chest movement *Routine Cardiovascular Exam Cardiovascular: Present RRR, Normal S1 and Normal S2; Absent murmur or gallop *Routine Abdominal Exam Abdominal: Present soft and normoactive bowel sounds; Absent tenderness, distended or organomegaly *Routine Extremities Exam Extremities: Present full ROM, pulses intact and normal capillary refill; Absent cyanosis, clubbing or edema *Routine Skin Exam Skin: Present warm and wounds (To the right foot); Absent erythema *Routine Neurological Exam Neurological: Present alert, oriented X3 and CN II-XII intact; Absent sensory deficit or motor deficit Routine Psychiatric Exam Psychiatric: Present normal affect Progress Note: A&P Assessment and plan (1) NSTEMI (non-ST elevated myocardial infarction): Status: Acute (2) Abnormal echocardiogram: Status: Acute (3) Septic shock: Status: Acute (4) Atrial fibrillation: Status: Acute (5) Nausea & vomiting: Status: Acute (6) Chronic HFrEF (heart failure with reduced ejection fraction): Status: Acute (7) Hypertension: Status: Acute (8) Ischemic cardiomyopathy: Status: Acute (9) Hyperlipidemia: Status: Acute (10) Coronary artery disease: Status: Acute (11) Diabetes mellitus: Status: Chronic (12) PAD (peripheral artery disease): Status: Acute Assessment and Plan Assessment and Plan for All Diagnoses:: Plan: 1. The patient presented to the emergency department complaints of nausea and vomiting. He was found to have an CRISTEL, non-STEMI and elevated lactate with sepsis. The patient was treated with a liter fluid bolus and then subsequently admitted to the hospital. Antibiotics have been initiated due to to his sepsis. Will defer this to the hospitalist. 2. The patient was hypotensive and started on a norepinephrine drip. The Levophed was stopped yesterday around 3 PM in the evening. And he has remained off of the Levophed with good blood pressure control. 3. The patient does have an elevated troponin consistent with a non-STEMI. He has known severe three-vessel disease status post stenting. Echocardiogram on this admission shows inferior and inferior septal wall motion abnormalities which are new. Will plan to proceed with left cardiac catheterization tomorrow if his renal function has improved. 4. Coronary artery disease is present. He will need left cardiac catheterization as mentioned above. Continue aspirin and Plavix for dual antiplatelet therapy. 5. His echocardiogram continues to show LV wall thickness. He will need a cardiac MRI on an outpatient basis. 6. His blood pressure is well-controlled at this time. He is off of Levophed. 7. His LDL goal is less than 55. His LDL is less than 30. He is on a statin. 8. The patient did have an acute kidney injury on admission. His creatinine was up to 2.5. Creatinine remains at 2.4 today. 9. The patient's BNP was 7900 on admission. He does have acute on chronic HFrEF. 10. The patient does have a right foot wound. Recommend podiatry consult. ALVARO is normal. 11. All heart failure medications are being held at this time due to to his hypotension. If his blood pressure remains well-controlled tomorrow we will reinitiate his HFrEF medications and GDMT. 12. The patient was in atrial fibrillation on admission. He is currently rate controlled. 13. The patient is currently on heparin for anticoagulation. He will need to be switched over to oral Eliquis prior to discharge home. 14. Further recommendations will be made pending the patient's response to treatment. Thank you for the opportunity to help participate in the care of this patient. All recommendations and orders are per Dr. Martínez.
--- NOTE | 2024-09-20 14:49 | SUR.OPER ---
1338- Detailed report called to Nadine Ashford RN in ICU at 1338. Patient's vital signs stable. Dressing in place and clean, dry and intact. 1440-Patient left in the care of Chica Armas RN in ICU.
[2024-09-20] MEDS: CLOPIDOGREL 75MG TAB 75 MG PO (16:44)
[2024-09-20] MEDS: ASPIRIN EC 81MG TABLET 81 MG PO (16:44)
[2024-09-20 17:24] LABS: POC Glucose,Bedside 191 (70-110)
[2024-09-20] MEDS: humaLOG 100 UNITS/ML 10ML VIAL (SSI) SUBCUT ×2 (17:55→20:44)
--- NOTE | 2024-09-20 17:59 | PC.NURSE ---
pt leaving room 261 in ICU to go to [facility] to room 208 @[phone]
--- NOTE | 2024-09-20 18:33 | PC.NURSE ---
pt has left the ICU from room 261 to the [facility] floor to room 208 via wheelchair @[phone]
[2024-09-20] MEDS: VANCOMYCIN/WATER FOR INJ (PEG) 1.25 GM/250 ML PIGGYBACK IV (20:14)
[2024-09-20] MEDS: ATORVASTATIN 40MG TABLET 80 MG PO (20:14)
[2024-09-20] MEDS: PANTOPRAZOLE 40MG TABLET 40 MG PO (20:14)
[2024-09-20 21:17] LABS: Vancomycin,Trough 15.8 ug/mL (5.0-10.0)
[2024-09-21] VITALS: BP 131/83; PULSE 85; RESP 16; TEMP 36.6; O2SAT 95
[2024-09-21 02:18] LABS: Vancomycin,Peak 15.1 ug/ml (11-39)
[2024-09-21] MEDS: PIPERACILLIN/TAZO 3.375 GM in 0.9 % SODIUM CHLORIDE 50 ML IV ×2 (03:03→11:14)
[2024-09-21] MEDS: 0.9 % SODIUM CHLORIDE 1000ML 1,000 ML 75 ML IV (03:36)
[2024-09-21 04:00] VITALS: BP 135/83; PULSE 97; RESP 16; TEMP 37; O2SAT 96; BMI 29.1
--- NOTE | 2024-09-21 04:49 | PC.NURSE ---
v/s, ox4. Pt tolerated IV ABX. Dressing monitored on feet from procedure and wound. Blood glucose monitored. Pt denied pain. Plan of care ongoing.
[2024-09-21 05:49] LABS: POC Glucose,Bedside 96 (70-110)
[2024-09-21 06:12] LABS: MANUAL DIFFERENTIAL MANUAL DIFFERENTIAL (MANUAL DIFF)
[2024-09-21 06:15] LABS: Basophils % 0.3 % (0.1-2.0); Eosinophils # 0.4 Kmm3 (0.0-0.4); Eosinophils % 5.9 % (0.1-12.0); Hematocrit 31.8 % (42.0-52.0); Hemoglobin 10.4 g/dL (14.1-18.0); Lymphocytes # 0.7 K/mm3 (0.7-4.5); Lymphocytes % 11.6 % (10-50); Mean Corpuscular HGB Conc 32.7 g/dL (31.8-35.4); Mean Corpuscular Hemoglobin 29.5 pg (27.0-31.2); Mean Corpuscular Volume 90.3 fl (80-94); Mean Platelet Volume 9.9 fl (7.4-10.4); Monocytes # 0.5 K/mm3 (0.1-1.0); Monocytes % 7.5 % (1.7-9.3); Neutrophils # 4.5 K/mm3 (1.8-7.8); Platelet Count 153 K/mm3 (142-424); Red Blood Count 3.52 M/mm3 (4.60-6.20); Red Cell Distribution Width 13.1 % (11.5-17.5); White Blood Count 6.1 K/mm3 (4.8-10.8)
[2024-09-21 06:34] LABS: Anion Gap 12.7 mEq/L (5-15); Blood Urea Nitrogen 30 mg/dl (9-20); Carbon Dioxide 21 mmol/L (22.0-30.0); Chloride 110 mmol/L (98-107); Creatinine Clearance Estimated 48 mL/min (50-200); Estimated Glomerular Filt Rate 32 ml/min (>60); GFR (African American) 39 ML/MIN (>60); Glucose 98 mg/dl (74-100); Potassium 3.7 mmoL/L (3.5-5.1); Sodium 140 mmol/L (136-145)
[2024-09-21 07:36] LABS: Eosinophils % 5 % (0-3); Lymphocytes % 14 % (10-50); Monocytes % 8 % (2-9); Neutrophils % 73 % (42-76); Platelet Estimate Normal; RBC Morphology Normal; Total Cells Counted 100
[2024-09-21 08:00] VITALS: BP 136/92; PULSE 87; RESP 21; TEMP 36.7; O2SAT 100
--- NOTE | 2024-09-21 08:01 | EXP.PHA.PN ---
Subjective *Date: 09/21/24 *Time: 08:01 Medical Exam Vital signs and Labs for Last 24 Hours: Vital Signs Temp Pulse Pulse Resp BP BP Pulse Ox 09/21/24 06:05 09/21/24 05:00 09/21/24 04:00 98.6 F 97 H 16 135/83 96 09/21/24 03:00 09/21/24 01:00 09/21/24 00:00 97.9 F 85 16 131/83 95 09/20/24 23:00 09/20/24 21:00 09/20/24 20:00 09/20/24 20:00 98.2 F 96 H 16 154/93 H 98 09/20/24 18:57 09/20/24 16:30 93 H 18 151/87 H 92 L 09/20/24 16:00 98.5 F 86 20 150/95 H 100 09/20/24 16:00 93 H 09/20/24 15:30 89 22 172/99 H 98 09/20/24 15:00 09/20/24 15:00 84 24 141/91 H 98 09/20/24 14:43 86 20 140/85 98 09/20/24 14:26 98.1 F 79 16 138/81 100 09/20/24 14:18 98.1 F 83 16 134/77 100 09/20/24 14:08 98.1 F 84 16 135/71 100 09/20/24 13:58 98.1 F 84 16 145/76 H 100 09/20/24 13:48 98.1 F 81 16 131/83 100 09/20/24 13:38 98.1 F 80 16 138/72 100 09/20/24 12:13 98.1 F 84 17 157/69 H 98 09/20/24 11:58 84 17 157/69 H 98 09/20/24 11:45 82 20 178/97 H 98 09/20/24 11:30 98.1 F 83 21 162/95 H 98 09/20/24 11:16 85 22 149/93 H 98 09/20/24 11:00 84 20 153/86 H 99 09/20/24 10:30 85 21 149/88 H 98 09/20/24 10:00 81 14 155/81 H 97 09/20/24 09:15 87 16 151/93 H 100 09/20/24 09:00 09/20/24 09:00 85 22 169/84 H 99 09/20/24 08:45 84 20 148/90 H 99 O2 Del Method O2 Flow Rate 09/21/24 06:05 Room Air 09/21/24 05:00 Room Air 09/21/24 04:00 Room Air 09/21/24 03:00 Room Air 09/21/24 01:00 Room Air 09/21/24 00:00 Room Air 09/20/24 23:00 Room Air 09/20/24 21:00 Room Air 09/20/24 20:00 Room Air 09/20/24 20:00 Room Air 09/20/24 18:57 Room Air 09/20/24 16:30 Room Air 09/20/24 16:00 Room Air 09/20/24 16:00 09/20/24 15:30 Room Air 09/20/24 15:00 Room Air 09/20/24 15:00 Room Air 09/20/24 14:43 Room Air 09/20/24 14:26 Room Air 09/20/24 14:18 Room Air 09/20/24 14:08 Room Air 09/20/24 13:58 09/20/24 13:48 Room Air 09/20/24 13:38 Room Air 09/20/24 12:13 Room Air 09/20/24 11:58 Room Air 09/20/24 11:45 Room Air 09/20/24 11:30 09/20/24 11:16 Room Air 09/20/24 11:00 Room Air 09/20/24 10:30 09/20/24 10:00 Room Air 09/20/24 09:15 Nasal Cannula 1 09/20/24 09:00 Room Air 09/20/24 09:00 Nasal Cannula 1 09/20/24 08:45 Nasal Cannula 1 Intake and Output 09/20/24 09/21/24 09/21/24 23:59 07:59 15:59 Intake Total 1035 / 2709 350 / 350 Output Total 875 / 3555 1540 / 1540 Balance 160 / -846 -1190 / -1190 Intake: Intake, Oral Amount 535 / 1070 Intake, Total IV Amount 500 / 1639 350 / 350 0.9 % Sodium Chloride 1000ML 1, 500 / 1339 000 ml @ 75 mls/hr IV .[id number] [facility] Rx#:[id number] Piperacillin/Tazo 3.375 gm In 0 100 / 100 .9 % Sodium Chloride 50 ml @ 100 mls/hr IV Q8H [facility] Rx#: [id number] Vancomycin/Water For Inj (Peg) 250 / 250 1.25 gm In 250 ml @ 125 mls/hr IV Q24H [facility] Rx#:[id number] Output: Output, Urine Amount 875 / 2335 1540 / 1540 Other: Number of Voids 1 Weight 92.306 kg Patient Weight 09/21/24 23:59 Weight 92.306 kg Laboratory Results - last 24 hr 09/20/24 10:55: POC Glucose 132 H 09/20/24 17:16: POC Glucose 191 H 09/20/24 20:22: Vancomycin Trough 15.8 H 09/21/24 01:08: Vancomycin Peak 15.1 09/21/24 05:40: WBC 6.1, RBC 3.52 L, Hgb 10.4 L, Hct 31.8 L, MCV 90.3, MCH 29.5, MCHC 32.7, RDW 13.1, Plt Count 153, MPV 9.9, Neut % (Auto) 74.0, Lymph % (Auto) 11.6, [place] % (Auto) 7.5, Eos % (Auto) 5.9, Baso % (Auto) 0.3, Neut # (Auto) 4.5, Lymph # (Auto) 0.7, [place] # (Auto) 0.5, Eos # (Auto) 0.4, Baso # (Auto) 0.0, Total Counted 100, Neutrophils % (Manual) 73, Lymphocytes % (Manual) 14, Monocytes % (Manual) 8, Eosinophils % (Manual) 5 H, Platelet Estimate Normal, RBC Morphology Normal, Sodium 140, Potassium 3.7, Chloride 110 H, Carbon Dioxide 21 L, Anion Gap 12.7, BUN 30 H, Creatinine 2.10 H, Estimated Creat Clear 48, Estimated GFR 32 L, Est GFR ( Amer) 39 L, Glucose 98, Calcium 8.0 L 09/21/24 05:42: POC Glucose 96 I & O for Labs for Last 24 Hours: Intake & Output 09/18/24 09/19/24 09/20/2409/21/25 23:59 23:59 23:59 23:59 Intake Total 4847.278 / 4847.278 3031.663 / 3031.663 2709 / 2709 350 / 350 Output Total 3070 / 3070 6005 / 6075 2755 / 3555 1540 / 1540 Balance 1777.278 / 1777.278 -2973.337 / -3043.337 -46 / -846 -1190 / -1190 Weight 84.822 kg 89.993 kg 90.35 kg 92.306 kg Microbiology Reports for the Last 24 Hours: Microbiology 09/19/24 11:20 Blood Blood Culture - Preliminary NO GROWTH AFTER 24 HOURS 09/19/24 11:15 Blood Blood Culture - Preliminary NO GROWTH AFTER 24 HOURS 09/18/24 07:54 Toe,Left Fifth Gram Stain - Final 09/18/24 07:54 Toe,Left Fifth Wound Culture - Final Staphylococcus aureus The patient's infection will respond to the chosen ABx?: Yes Is the patient receiving the right drug, dose, and route?: Yes Could a more targeted ABx be ordered?: No (WOUND CX MRSA +, WBC WNL DOWN FROM ADMISSION.)
--- NOTE | 2024-09-21 09:02 | P.PN_ITS ---
Subjective *Date: 09/21/24 *Time: 09:02 Interval history: Patient feels better this morning, no new complaints. Had left 5 th toe amputation without difficulty yesterday. Medical Exam Vital signs and Labs for Last 24 Hours: Vital Signs Temp Pulse Pulse Resp BP BP Pulse Ox 09/21/24 08:00 98.0 F 87 21 136/92 H 100 09/21/24 06:05 09/21/24 05:00 09/21/24 04:00 98.6 F 97 H 16 135/83 96 09/21/24 03:00 09/21/24 01:00 09/21/24 00:00 97.9 F 85 16 131/83 95 09/20/24 23:00 09/20/24 21:00 09/20/24 20:00 09/20/24 20:00 98.2 F 96 H 16 154/93 H 98 09/20/24 18:57 09/20/24 16:30 93 H 18 151/87 H 92 L 09/20/24 16:00 98.5 F 86 20 150/95 H 100 09/20/24 16:00 93 H 09/20/24 15:30 89 22 172/99 H 98 09/20/24 15:00 09/20/24 15:00 84 24 141/91 H 98 09/20/24 14:43 86 20 140/85 98 09/20/24 14:26 98.1 F 79 16 138/81 100 09/20/24 14:18 98.1 F 83 16 134/77 100 09/20/24 14:08 98.1 F 84 16 135/71 100 09/20/24 13:58 98.1 F 84 16 145/76 H 100 09/20/24 13:48 98.1 F 81 16 131/83 100 09/20/24 13:38 98.1 F 80 16 138/72 100 09/20/24 12:13 98.1 F 84 17 157/69 H 98 09/20/24 11:58 84 17 157/69 H 98 09/20/24 11:45 82 20 178/97 H 98 09/20/24 11:30 98.1 F 83 21 162/95 H 98 09/20/24 11:16 85 22 149/93 H 98 09/20/24 11:00 84 20 153/86 H 99 09/20/24 10:30 85 21 149/88 H 98 09/20/24 10:00 81 14 155/81 H 97 09/20/24 09:15 87 16 151/93 H 100 O2 Del Method O2 Flow Rate 09/21/24 08:00 09/21/24 06:05 Room Air 09/21/24 05:00 Room Air 09/21/24 04:00 Room Air 09/21/24 03:00 Room Air 09/21/24 01:00 Room Air 09/21/24 00:00 Room Air 09/20/24 23:00 Room Air 09/20/24 21:00 Room Air 09/20/24 20:00 Room Air 09/20/24 20:00 Room Air 09/20/24 18:57 Room Air 09/20/24 16:30 Room Air 09/20/24 16:00 Room Air 09/20/24 16:00 09/20/24 15:30 Room Air 09/20/24 15:00 Room Air 09/20/24 15:00 Room Air 09/20/24 14:43 Room Air 09/20/24 14:26 Room Air 09/20/24 14:18 Room Air 09/20/24 14:08 Room Air 09/20/24 13:58 09/20/24 13:48 Room Air 09/20/24 13:38 Room Air 09/20/24 12:13 Room Air 09/20/24 11:58 Room Air 09/20/24 11:45 Room Air 09/20/24 11:30 09/20/24 11:16 Room Air 09/20/24 11:00 Room Air 09/20/24 10:30 09/20/24 10:00 Room Air 09/20/24 09:15 Nasal Cannula 1 Intake and Output 09/20/24 09/21/24 09/21/24 23:59 07:59 15:59 Intake Total 1035 / 2709 350 / 350 Output Total 875 / 3555 1540 / 1940 400 / 1940 Balance 160 / -846 -1190 / -1590 -400 / -1590 Intake: Intake, Oral Amount 535 / 1070 Intake, Total IV Amount 500 / 1639 350 / 350 0.9 % Sodium Chloride 1000ML 1, 500 / 1339 000 ml @ 75 mls/hr IV .[id number] [facility] Rx#:[id number] Piperacillin/Tazo 3.375 gm In 0 100 / 100 .9 % Sodium Chloride 50 ml @ 100 mls/hr IV Q8H [facility] Rx#: [id number] Vancomycin/Water For Inj (Peg) 250 / 250 1.25 gm In 250 ml @ 125 mls/hr IV Q24H [facility] Rx#:[id number] Output: Output, Urine Amount 875 / 2335 1540 / 1940 400 / 1940 Other: Number of Voids 1 Number of Unmeasured Voids 0 Weight 203 lb 8 oz Patient Weight 09/21/24 23:59 Weight 203 lb 8 oz Laboratory Results - last 24 hr 09/20/24 10:55: POC Glucose 132 H 09/20/24 17:16: POC Glucose 191 H 09/20/24 20:22: Vancomycin Trough 15.8 H 09/21/24 01:08: Vancomycin Peak 15.1 09/21/24 05:40: WBC 6.1, RBC 3.52 L, Hgb 10.4 L, Hct 31.8 L, MCV 90.3, MCH 29.5, MCHC 32.7, RDW 13.1, Plt Count 153, MPV 9.9, Neut % (Auto) 74.0, Lymph % (Auto) 11.6, [place] % (Auto) 7.5, Eos % (Auto) 5.9, Baso % (Auto) 0.3, Neut # (Auto) 4.5, Lymph # (Auto) 0.7, [place] # (Auto) 0.5, Eos # (Auto) 0.4, Baso # (Auto) 0.0, Total Counted 100, Neutrophils % (Manual) 73, Lymphocytes % (Manual) 14, Monocytes % (Manual) 8, Eosinophils % (Manual) 5 H, Platelet Estimate Normal, RBC Morphology Normal, Sodium 140, Potassium 3.7, Chloride 110 H, Carbon Dioxide 21 L, Anion Gap 12.7, BUN 30 H, Creatinine 2.10 H, Estimated Creat Clear 48, Estimated GFR 32 L, Est GFR ( Amer) 39 L, Glucose 98, Calcium 8.0 L 09/21/24 05:42: POC Glucose 96 I & O for Labs for Last 24 Hours: Intake & Output 09/18/24 09/19/24 09/20/24 05/30/25 23:59 23:59 23:59 23:59 Intake Total 4847.278 / 4847.278 3031.663 / 3031.663 2709 / 2709 350 / 350 Output Total 3070 / 3070 6005 / 6075 2755 / 3555 1940 / 1940 Balance 1777.278 / 1777.278 -2973.337 / -3043.337 -46 / -846 -1590 / -1590 Weight 187 lb 198 lb 6.4 oz 199 lb 3.002 oz 203 lb 8 oz Microbiology Reports for the Last 24 Hours: Microbiology 09/19/24 11:20 Blood Blood Culture - Preliminary NO GROWTH AFTER 24 HOURS 09/19/24 11:15 Blood Blood Culture - Preliminary NO GROWTH AFTER 24 HOURS 09/18/24 07:54 Toe,Left Fifth Gram Stain - Final 09/18/24 07:54 Toe,Left Fifth Wound Culture - Final Staphylococcus aureus Constitutional: Present no acute distress Respiratory: Present normal respiratory effort Cardiac: Present Reg Rate and Rhythm Comment:: Dressings in place over both feet Neuro: Present Grossly Intact and moves all extremities Assessment and Plan *Assessment and plan (1) Cellulitis of left foot: Status: Acute Category: Medical Code(s): L03.116 - Cellulitis of left lower limb (2) Diabetic ulcer of right foot: Problem Comment: Right 5th toe DFU probes to bone Status: Acute Qualifiers: Diabetic foot ulcer location: other Diabetes mellitus type: type 2 Non-pressure ulcer stage: with fat layer exposed Qualified Code(s): E11.621 - Type 2 diabetes mellitus with foot ulcer; L97.512 - Non-pressure chronic ulcer of other part of right foot with fat layer exposed Category: Medical Code(s): E11.621 - Type 2 diabetes mellitus with foot ulcer; L97.519 - Non-pressure chronic ulcer of other part of right foot with unspecified severity (3) Diabetic ulcer of left foot: Status: Acute Qualifiers: Diabetic foot ulcer location: other Diabetes mellitus type: type 2 Non-pressure ulcer stage: with fat layer exposed Qualified Code(s): E11.621 - Type 2 diabetes mellitus with foot ulcer; L97.522 - Non-pressure chronic ulcer of other part of left foot with fat layer exposed Category: Medical Code(s): E11.621 - Type 2 diabetes mellitus with foot ulcer; L97.529 - Non-pressure chronic ulcer of other part of left foot with unspecified severity (4) Diabetes mellitus with diabetic neuropathy: Status: Acute Qualifiers: Diabetes mellitus type: type 2 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 mellitus remote computer terminal operator insulin use: without retirement use Qualified Code(s): E11.40 - Type 2 diabetes mellitus with diabetic neuropathy, unspecified Category: Medical Code(s): E11.40 - Type 2 diabetes mellitus with diabetic neuropathy, unspecified (5) PAD (peripheral artery disease): Status: Acute Category: Medical Code(s): I73.9 - Peripheral vascular disease, unspecified (6) History of amputation of great toe: Status: Acute Category: Surgical Code(s): Z89.419 - Acquired absence of unspecified great toe (7) Skin ulcer of right great toe: Status: Acute Qualifiers: Non-pressure ulcer stage: limited to breakdown of skin Qualified Code(s): L97.511 - Non-pressure chronic ulcer of other part of right foot limited to breakdown of skin Category: Medical Code(s): L97.519 - Non-pressure chronic ulcer of other part of right foot with unspecified severity (8) Skin ulcer of third toe of left foot: Status: Acute Qualifiers: Non-pressure ulcer stage: limited to breakdown of skin Qualified Code(s): L97.521 - Non-pressure chronic ulcer of other part of left foot limited to breakdown of skin Category: Medical Code(s): L97.529 - Non-pressure chronic ulcer of other part of left foot with unspecified severity (9) Leg wound, right: Status: Acute Qualifiers: Encounter type: initial encounter Qualified Code(s): S81.801A - Unspecified open wound, right lower leg, initial encounter Category: Medical Code(s): S81.801A - Unspecified open wound, right lower leg, initial encounter (10) Osteoarthritis: Status: Acute Qualifiers: Osteoarthritis location: foot Osteoarthritis type: primary Laterality: right Qualified Code(s): M19.071 - Primary osteoarthritis, right ankle and foot Category: Medical Code(s): M19.90 - Unspecified osteoarthritis, unspecified site (11) Diabetic foot: Status: Acute Category: Medical Code(s): E11.8 - Type 2 diabetes mellitus with unspecified complications (12) Status post amputation of left great toe: Problem Comment: Surgery, 08/01/24: s/p Right hallux and lateral ankle DFU wound debridement x2, Left 5th toe DFU wound debridement, Left foot irrigation and debridement, hallux amputation Status: Acute Category: Surgical Code(s): Z89.412 - Acquired absence of left great toe (13) Septic shock: Status: Acute Category: Medical Code(s): A41.9 - Sepsis, unspecified organism; R65.21 - Severe sepsis with septic shock (14) Hypotension: Status: Acute Qualifiers: Hypotension type: hypotension due to hypovolemia Qualified Code(s): E86.1 - Hypovolemia Category: Medical Code(s): I95.9 - Hypotension, unspecified (15) Acute kidney injury: Status: Resolved Category: Medical Code(s): N17.9 - Acute kidney failure, unspecified (16) Hypomagnesemia: Status: Acute Category: Medical Code(s): E83.42 - Hypomagnesemia (17) NSTEMI (non-ST elevated myocardial infarction): Status: Acute Category: Medical Code(s): I21.4 - Non-ST elevation (NSTEMI) myocardial infarction (18) Heart failure with reduced ejection fraction: Status: Acute Category: Medical Code(s): I50.20 - Unspecified systolic (congestive) heart failure (19) Diabetes mellitus: Status: Chronic Qualifiers: Diabetes mellitus type: type 2 Diabetes mellitus remote computer terminal operator insulin use: without remote computer terminal operator use Diabetes mellitus complication status: without complication Qualified Code(s): E11.9 - Type 2 diabetes mellitus without complications Category: Medical Code(s): E11.9 - Type 2 diabetes mellitus without complications Plan S/P left 5 th toe amputation. Renal function has not improved much, cardiology to follow and decide best timing for left heart cath. Patient has a bed at SNF for rehab.
--- NOTE | 2024-09-21 09:24 | P.PN_ITS ---
Subjective Subjective Date: 09/21/24 Time: 07:00 Principal diagnosis: hypotension, non-stemi Interval history: This is a 63-year-old gentleman who presented to the emergency department complaints of nausea and vomiting. He was found to have an elevated troponin consistent with a non-STEMI as well as an CRISTEL and elevated lactate. He is currently getting IV antibiotics. Blood pressure remained stable off of Levophed. He denies any chest pain or pressure. He denies any shortness of breath or edema. He denies any fever, chills, nausea, vomiting or diarrhea today. He does have known HFrEF with an ejection fraction of 45%. Exam Data for Last 24 hours Vital signs and Labs for Last 24 Hours: Temp Pulse Resp BP Pulse Ox O2 Del Method O2 Flow Rate 98.0 F 87 21 136/92 H 100 Room Air 1 09/21/24 08:00 09/21/24 08:00 09/21/24 08:00 09/21/24 08:00 09/21/24 08:00 09/21/24 06:05 09/20/24 09:15 Laboratory Results - last 24 hr 09/20/24 10:55: POC Glucose 132 H 09/20/24 17:16: POC Glucose 191 H 09/20/24 20:22: Vancomycin Trough 15.8 H 09/21/24 01:08: Vancomycin Peak 15.1 09/21/24 05:40: WBC 6.1, RBC 3.52 L, Hgb 10.4 L, Hct 31.8 L, MCV 90.3, MCH 29.5, MCHC 32.7, RDW 13.1, Plt Count 153, MPV 9.9, Neut % (Auto) 74.0, Lymph % (Auto) 11.6, [place] % (Auto) 7.5, Eos % (Auto) 5.9, Baso % (Auto) 0.3, Neut # (Auto) 4.5, Lymph # (Auto) 0.7, [place] # (Auto) 0.5, Eos # (Auto) 0.4, Baso # (Auto) 0.0, Total Counted 100, Neutrophils % (Manual) 73, Lymphocytes % (Manual) 14, Monocytes % (Manual) 8, Eosinophils % (Manual) 5 H, Platelet Estimate Normal, RBC Morphology Normal, Sodium 140, Potassium 3.7, Chloride 110 H, Carbon Dioxide 21 L, Anion Gap 12.7, BUN 30 H, Creatinine 2.10 H, Estimated Creat Clear 48, Est imated GFR 32 L, Est GFR ( Amer) 39 L, Glucose 98, Calcium 8.0 L 09/21/24 05:42: POC Glucose 96 I & O for Last 24 hours: Intake & Output 09/18/24 09/19/24 09/20/24 09/21/24 23:59 23:59 23:59 23:59 Intake Total 4847.278 / 4847.278 3031.663 / 3031.663 2709 / 2709 350 / 350 Output Total 3070 / 3070 6005 / 6075 2755 / 3555 1940 / 1940 Balance 1777.278 / 1777.278 -2973.337 / -3043.337 -46 / -846 -1590 / -1590 Weight 187 lb 198 lb 6.4 oz 199 lb 3.002 oz 203 lb 8 oz Microbiology Reports for the Last 24 Hours: Microbiology 09/19/24 11:20 Blood Blood Culture - Preliminary NO GROWTH AFTER 24 HOURS 09/19/24 11:15 Blood Blood Culture - Preliminary NO GROWTH AFTER 24 HOURS 09/18/24 07:54 Toe,Left Fifth Gram Stain - Final 09/18/24 07:54 Toe,Left Fifth Wound Culture - Final Staphylococcus aureus Constitutional Constitutional: no acute distress and average body habitus *Routine HEENT Exam Head: Present normocephalic and atraumatic ENT: Present mucous membranes moist *Routine Neck Exam Neck: Present supple, full ROM and normal carotid upstroke; Absent JVD, carotid bruit or lymphadenopathy *Routine Respiratory Exam Respiratory: Present CTA bilaterally, normal respiratory effort, able to speak in complete sentences and symmetric chest movement *Routine Cardiovascular Exam Cardiovascular: Present RRR, Normal S1 and Normal S2; Absent murmur or gallop *Routine Abdominal Exam Abdominal: Present soft and normoactive bowel sounds; Absent tenderness, distended or organomegaly *Routine Extremities Exam Extremities: Present full ROM, pulses intact and normal capillary refill; Absent cyanosis, clubbing or edema *Routine Skin Exam Skin: Present warm and wounds (To the right foot); Absent erythema *Routine Neurological Exam Neurological: Present alert, oriented X3 and CN II-XII intact; Absent sensory deficit or motor deficit Routine Psychiatric Exam Psychiatric: Present normal affect Progress Note: A&P Assessment and plan (1) NSTEMI (non-ST elevated myocardial infarction): Status: Acute (2) Heart failure with reduced ejection fraction: Status: Acute (3) Abnormal echocardiogram: Status: Acute (4) Coronary artery disease: Status: Acute (5) Acute kidney injury: Status: Resolved (6) Cellulitis of left foot: Status: Acute (7) Diabetic ulcer of left foot: Status: Acute (8) History of amputation of great toe: Status: Acute (9) Skin ulcer of right great toe: Status: Acute (10) Skin ulcer of third toe of left foot: Status: Acute (11) Leg wound, right: Status: Acute (12) Septic shock: Status: Acute (13) Diabetes mellitus: Status: Chronic (14) Nausea & vomiting: Status: Acute (15) Atrial fibrillation: Status: Acute (16) Hypertension: Status: Acute (17) Hyperlipidemia: Status: Acute (18) Ischemic cardiomyopathy: Status: Acute (19) PAD (peripheral artery disease): Status: Acute Assessment and Plan Assessment and Plan for All Diagnoses:: Plan: 1. The patient presented to the emergency department complaints of nausea and vomiting. He was found to have an CRISTEL, non-STEMI and elevated lactate with sepsis. The patient was treated with a liter fluid bolus and then subsequently admitted to the hospital. Antibiotics have been initiated due to to his sepsis. Will defer this to the hospitalist. 2. Blood pressure has normalized off of Levophed drip. 3. The patient does have an elevated troponin consistent with a non-STEMI. He has known severe three-vessel disease status post stenting. Echocardiogram on this admission shows inferior and inferior septal wall motion abnormalities which are new. The patient will need left cardiac catheterization for further evaluation of his coronary artery disease due to his non-STEMI and abnormal echocardiogram. However, his renal function remains elevated. This can be done on an outpatient basis once his renal function is back down to normal. 4. Coronary artery disease is present. He will need left cardiac catheterization as mentioned above. Continue aspirin and Plavix for dual antiplatelet therapy. 5. His echocardiogram continues to show LV wall thickness. He will need a cardiac MRI on an outpatient basis. 6. His blood pressure is well-controlled at this time. 7. His LDL goal is less than 55. His LDL is less than 30. He is on a statin. 8. The patient did have an acute kidney injury on admission. His creatinine was up to 2.5. Creatinine remains elevated but down to 2.1 today. His baseline is 1. 9. The patient's BNP was 7900 on admission. He does have acute on chronic HFrEF. 10. The patient does have a right foot wound. Recommend podiatry consult. ALVARO is normal. 11. GDMT will be restarted at this time. Will restart him on Toprol-XL 12.5 mg p.o. daily and Farxiga 10 mg daily. The rest of his GDMT will be started on an outpatient basis. 12. The patient was in atrial fibrillation on admission. He is currently rate controlled. 13. The patient is currently on heparin for anticoagulation. He will need to be switched over to oral Eliquis prior to discharge home. 14. The patient can be discharged home today from a cardiac standpoint with cardiology follow-up next week on Tuesday with Dr. [place]. 15. The patient will need to be discharged on the following cardiac medications: Eliquis 5 mg p.o. twice daily, aspirin 81 mg daily, Crestor 40 mg p.o. nightly, Plavix 75 mg daily, Protonix 40 mg daily, Toprol-XL 12.5 mg daily and Farxiga 10 mg daily. Stop verquvo, spironolactone, Entresto, carvedilol, amlodipine. Thank you for the opportunity to help participate in the care of this patient. All recommendations and orders are per Dr. Martínez.
[2024-09-21] MEDS: ASPIRIN EC 81MG TABLET 81 MG PO (09:33)
[2024-09-21] MEDS: CLOPIDOGREL 75MG TAB 75 MG PO (09:33)
[2024-09-21] MEDS: HEPARIN SODIUM 5,000 UNIT/ML VIAL 5000 UNIT SUBCUT (09:33)
[2024-09-21] MEDS: DOCUSATE SODIUM 100 MG CAPSULE PO (09:37)
--- NOTE | 2024-09-21 09:42 | P.PN_ITS ---
Subjective *Date: 09/21/24 *Time: 12:12 Interval history: No acute respiratory vents overnight. Patient denies any new respiratory complaints. Pulmonology Exam Inpatient Vital signs and Labs for Last 24 Hours: Temp Pulse Resp BP Pulse Ox O2 Del Method O2 Flow Rate 98.0 F 87 21 136/92 H 100 Room Air 1 09/21/24 08:00 09/21/24 08:00 09/21/24 08:00 09/21/24 08:00 09/21/24 08:00 09/21/24 06:05 09/20/24 09:15 Laboratory Results - last 24 hr 09/20/24 10:55: POC Glucose 132 H 09/20/24 17:16: POC Glucose 191 H 09/20/24 20:22: Vancomycin Trough 15.8 H 09/21/24 01:08: Vancomycin Peak 15.1 09/21/24 05:40: WBC 6.1, RBC 3.52 L, Hgb 10.4 L, Hct 31.8 L, MCV 90.3, MCH 29.5, MCHC 32.7, RDW 13.1, Plt Count 153, MPV 9.9, Neut % (Auto) 74.0, Lymph % (Auto) 11.6, [place] % (Auto) 7.5, Eos % (Auto) 5.9, Baso % (Auto) 0.3, Neut # (Auto) 4.5, Lymph # (Auto) 0.7, [place] # (Auto) 0.5, Eos # (Auto) 0.4, Baso # (Auto) 0.0, Total Counted 100, Neutrophils % (Manual) 73, Lymphocytes % (Manual) 14, Monocytes % (Manual) 8, Eosinophils % (Manual) 5 H, Platelet Estimate Normal, RBC Morphology Normal, Sodium 140, Potassium 3.7, Chloride 110 H, Carbon Dioxide 21 L, Anion Gap 12.7, BUN 30 H, Creatinine 2.10 H, Estimated Creat Clear 48, Estimated GFR 32 L, Est GFR ( Amer) 39 L, Glucose 98, Calcium 8.0 L 09/21/24 05:42: POC Glucose 96 Temp Pulse Resp BP Pulse Ox O2 Del Method O2 Flow Rate 98.3 F 97 H 16 110/59 L 100 Room Air 99 09/18/24 08:00 09/18/24 09:30 09/18/24 09:30 09/18/24 09:30 09/18/24 09:30 09/18/24 09:30 09/18/24 08:55 Laboratory Results - last 24 hr 09/17/24 16:26: VBG pH 7.30 L, VBG pCO2 42.7, VBG pO2 26.0 L, VBG HCO3 20.5 L, VBG Total CO2 21.8 L, VBG O2 Saturation 42.0 L, VBG Base Excess -5.9 L, VBG Lactic Acid 5.1 H 09/17/24 16:45: WBC 14.7 H, RBC 4.54 L, Hgb 13.4 L, Hct 41.6 L, MCV 91.6, MCH 29.5, MCHC 32.2, RDW 13.1, Plt Count 174, MPV 9.9, Neut % (Auto) 96.2 H, Lymph % (Auto) 0.7 L, [place] % (Auto) 2.2, Eos % (Auto) 0.3, Baso % (Auto) 0.1, Neut # (Auto) 14.1 H, Lymph # (Auto) 0.1 L, [place] # (Auto) 0.3, Eos # (Auto) 0.1, Baso # (Auto) 0.0, Total Counted 100, Neutrophils % (Manual) 90 H, Band Neutrophils % 8, Monocytes % (Manual) 2, Platelet Estimate Normal, RBC Morphology Normal, Sodium 137, Potassium 4.5, Chloride 101, Carbon Dioxide 23, Anion Gap 17.5 H, BUN 39 H, Creatinine 2.50 H, Estimated Creat Clear 39, Estimated GFR 26 L, Est GFR ( Amer) 32 L, Glucose 256 H, Calcium 9.5, Magnesium 1.3 L, Total Bilirubin 0.8, AST 45, ALT 34, Alkaline Phosphatase 97, Troponin I 0.13 H, C- Reactive Protein 298.7 H, NT-Pro-B Natriuret Pep 7900 H, Total Protein 6.8, A lbumin 4.2, Globulin 2.6, Albumin/Globulin Ratio 1.6, Lipase 20 L, Procalcitonin 24.5 H, TSH 1.43, Thyroxine (T4) 5.2 L, Acetone Level None detected 09/17/24 17:20: Lactate 3.9 H, Urine Color Yellow, Urine Appearance Clear, Urine pH 6.0, Ur Specific [place] 1.020, Urine Protein 2+ A, Urine Glucose (UA) 3+, Urine Ketones Trace, Urine Blood 2+ A, Urine Nitrate Negative, Urine Bilirubin 1+ A, Urine Urobilinogen 0.2, Ur Leukocyte Esterase Negative, Urine RBC None, Urine WBC Occasional, Ur Squamous Epith Cells None, Urine Bacteria 3+, Fine Granular Casts 3-5 09/17/24 19:33: Chlamy pneumoniae PCR Not detected, Adenovirus (PCR) Not detected, B. pertussis DNA (PCR) Not detected, Coronavirus OC43 (PCR) Not detected, Coronavirus HKU1 (PCR) Not detected, Coronavirus 229E (PCR) Not detected, SARS-CoV-2 (PCR) Not detected, Coronavirus NL63 (PCR) Not detected, Human Metapneumovir PCR Not detected, Influenza A (H1) PCR Not detected, Influ A (H1N1/09) PCR Not detected, Influenza A (H3) PCR Not detected, Influenza Type A (PCR) Not detected, Influenza Type B (PCR) Not detected, M. pneumoniae (PCR) Not detected, Parainfluenza 1 (PCR) Not detected, Parainfluenza 2 (PCR) Not detected, Parainfluenza 3 (PCR) Not detected, Parainfluenza 4 (PCR) Not detected, RSV (PCR) Not detected, Entero/Rhino (PCR) Not detected 09/17/24 21:38: Lactate 1.5, Troponin I 0.11 H, Triglycerides 147, Cholesterol 54 L, LDL Cholesterol Direct < 30.00 L, VLDL Cholesterol 29, HDL Cholesterol 23 L, Cholesterol/HDL Ratio 2.3 09/17/24 21:53: POC Glucose 126 H 09/17/24 22:09: PT 11.4, INR 1.03, APTT 22.8 09/17/24 23:41: Troponin I 0.11 H 09/18/24 08:00: PT 10.8, INR 0.97, Sodium 135 L, Potassium 4.3, Chloride 107, Carbon Dioxide 21 L, Anion Gap 11.3, BUN 38 H, Creatinine 2.20 H, Estimated Creat Clear 42, Estimated GFR 31 L, Est GFR ( Amer) 37 L, Glucose 192 H D , Lactate 1.1, Calcium 7.9 L, Phosphorus 3.7, Magnesium 1.5 L D, Total Bilirubin 0.6, AST 40, ALT 25 D, Alkaline Phosphatase 88, Total Protein 5.5 L, Albumin 3.0 L D, Globulin 2.5, Albumin/Globulin Ratio 1.2 I & O for Labs for Last 24 Hours: Intake & Output 09/18/24 09/19/24 09/20/24 09/21/24 23:59 23:59 23:59 23:59 Intake Total 4847.278 / 4847.278 3031.663 / 3031.663 2709 / 2709 350 / 350 Output Total 3070 / 3070 6005 / 6075 2755 / 3555 1940 / 1940 Balance 1777.278 / 1777.278 -2973.337 / -3043.337 -46 / -846 -1590 / -1590 Weight 187 lb 198 lb 6.4 oz 199 lb 3.002 oz 203 lb 8 oz Intake & Output 09/15/24 09/16/24 09/17/24 09/18/24 23:59 23:59 23:59 23:59 Intake Total 3602.752 / 3602.752 2809.813 / 2809.813 Output Total 800 / 820 620 / 620 Balance 2802.752 / 2782.752 2189.813 / 2189.813 Weight 187 lb 187 lb Microbiology Reports for the Last 24 Hours: Microbiology 09/19/24 11:20 Blood Blood Culture - Preliminary NO GROWTH AFTER 24 HOURS 09/19/24 11:15 Blood Blood Culture - Preliminary NO GROWTH AFTER 24 HOURS 09/18/24 07:54 Toe,Left Fifth Gram Stain - Final 09/18/24 07:54 Toe,Left Fifth Wound Culture - Final Staphylococcus aureus Constitutional: Present moderate distress Head: Present normocephalic and atraumatic ENT: Present normal exam, normal oropharynx and mucous membranes moist Neck: Present normal inspection and full ROM Respiratory: Absent prolonged expiratory phase, respiratory distress, wheezes, crackles, diminished air movement or able to speak in complete sentences Cardiac: Present S1/S2, Tachycardia and radial pulses present GI: Present soft and distention; Absent tenderness or guarding Skin: Present intact; Absent cyanosis or jaundice Neuro: Present alert and awake; Absent oriented x 3 Comment:: LLE wound wrapped Extremities: Absent normal inspection, clubbing or cyanosis Psychiatric: Present cooperative; Absent normal affect Assessment and Plan *Assessment and plan (1) Septic shock: Status: Acute Category: Medical Code(s): A41.9 - Sepsis, unspecified organism; R65.21 - Severe sepsis with septic shock Plan Mr. Mcdaniel is a 63-year-old male history of CAD, peripheral vascular disease, LV dysfunction poor nutritional status presented today with multiple complaints of decreased fluid intake generalized weakness nausea and vomiting. Patient is a never smoker. He denies any respiratory symptoms. Denies any cough or any productive phlegm. Never used any inhalers or oxygen. History of osteomyelitis with recent wound culture growing Klebsiella and Proteus and Enterococcus Afebrile. Hemodynamically unstable needing pressor support. Neutrophilic predominant leukocytosis. CTA PE upon admission, no pulmonary embolism. No dense consolidative/airspace changes. No pleural effusions. No evidence of volume overload. Right lower lobe lung nodule with central calcification noted. Echocardiogram grade 1 LV diastolic dysfunction, EF 45-50%. RV size and function normal On examination chest clear to auscultate. No respiratory distress noted. Saturating 100% on room air. Continue to receive norepinephrine at 15 mcg, repeat venous blood gas showed improving lactic acid at 1.8. Continue to show metabolic acidosis likely from renal dysfunction. Received adequate fluid resuscitation, 4 L since admission. Will hold off on any additional fluids. Wound cultures growing MRSA. Initial blood cultures 1 bottle growing MRSA less likely a contaminant. Repeat cultures from 09/19/2024 negative. Status post left fifth toe amputation on 09/20/2024 Interval update: No acute respiratory vents overnight. Continue to remain on room air. Plan:- Follow with podiatry recommendations. From critical care standpoint recommend 7-day course of antibiotics for presumed MRSA bactremia starting 09/19/2024 DuoNebs 4 times daily as needed # Pulmonary will sign off at this point of time. Please call with any further questions or concerns. Will follow the patient in 4 to 6 weeks postdischarge
--- NOTE | 2024-09-21 09:54 | EXP.PHA.CONS ---
Pharmacy Consult Date: 09/21/24 Time: 09:55 Referring provider: DR. PERRY Reason for Consult:: VANCOMYCIN LEVEL Allergies Allergy/AdvReac Type Severity Reaction Status Date / Time No Known Allergies Allergy Verified 09/06/24 10:35 Home Medications ?Medication ?Instructions ?Recorded ?Confirmed ?Type allopurinol 300 mg tablet 300 mg PO DAILY 02/28/24 09/18/24 History amlodipine 5 mg tablet 5 mg PO DAILY 02/28/24 09/18/24 History aspirin 81 mg tablet,delayed 81 mg PO DAILY 02/28/24 09/18/24 History release carvedilol 3.125 mg tablet 3.125 mg PO BID 02/28/24 09/18/24 History clopidogrel 75 mg tablet 75 mg PO DAILY 02/28/24 09/18/24 History glimepiride 4 mg tablet 2 mg PO DAILY 02/28/24 09/18/24 History metformin 500 mg tablet 500 mg PO BID 02/28/24 09/18/24 History omeprazole 40 mg capsule,delayed 40 mg PO DAILY 02/28/24 09/18/24 History release sacubitril 24 mg-valsartan 26 mg 1 tab PO BID 02/28/24 09/18/24 History tablet (Entresto) vericiguat 10 mg tablet (Verquvo) 10 mg PO DAILY 02/28/24 09/18/24 History rosuvastatin 40 mg tablet (Crestor) 40 mg PO DAILY #90 tabs 07/23/24 09/18/24 Rx ertugliflozin 5 mg tablet 5 mg PO DAILY 09/18/24 09/18/24 History (Ste[place]atro) spironolactone 25 mg tablet 25 mg PO DAILY 09/18/24 09/18/24 History New Prescriptions to Start Prescriptions: Height: 1.78 m Weight: 92.306 kg Laboratory Results:: Laboratory Results - last 24 hr 09/20/24 10:55: POC Glucose 132 H 09/20/24 17:16: POC Glucose 191 H 09/20/24 20:22: Vancomycin Trough 15.8 H 09/21/24 01:08: Vancomycin Peak 15.1 09/21/24 05:40: WBC 6.1, RBC 3.52 L, Hgb 10.4 L, Hct 31.8 L, MCV 90.3, MCH 29.5, MCHC 32.7, RDW 13.1, Plt Count 153, MPV 9.9, Neut % (Auto) 74.0, Lymph % (Auto) 11.6, [place] % (Auto) 7.5, Eos % (Auto) 5.9, Baso % (Auto) 0.3, Neut # (Auto) 4.5, Lymph # (Auto) 0.7, [place] # (Auto) 0.5, Eos # (Auto) 0.4, Baso # (Auto) 0.0, Total Counted 100, Neutrophils % (Manual) 73, Lymphocytes % (Manual) 14, Monocytes % (Manual) 8, Eosinophils % (Manual) 5 H, Platelet Estimate Normal, RBC Morphology Normal, Sodium 140, Potassium 3.7, Chloride 110 H, Carbon Dioxide 21 L, Anion Gap 12.7, BUN 30 H, Creatinine 2.10 H, Estimated Creat Clear 48, Estimated GFR 32 L, Est GFR ( Amer) 39 L, Glucose 98, Calcium 8.0 L 09/21/24 05:42: POC Glucose 96 Medical History: Medical History (Updated 09/18/24 @ 14:08 by Chastity Francisco APRN) Atrial fibrillation Nausea & vomiting Abnormal echocardiogram Ischemic cardiomyopathy Coronary artery disease Hypertension Hyperlipidemia Chronic HFrEF (heart failure with reduced ejection fraction) NSTEMI (non-ST elevated myocardial infarction) [place] Myocardial injury Atypical chest pain Murmur Abnormal nuclear cardiac imaging test Nonhealing skin ulcer E. coli UTI Fracture of fifth metatarsal bone of right foot Foot lesion Severe sepsis CHF (congestive heart failure) Abnormal ECG LV dysfunction Coronary artery disease COVID-19 Gout Diabetes mellitus, type 2 Onychomycosis Onychodystrophy Acquired metatarsus varus Abrasion of foot, right Fracture of fourth metatarsal bone of right foot Vaccine counseling Immunization due Blister of foot without infection Assessment and Plan Assessment and plan all Dx Assessment and Plan for all problems:: VANCOMYCIN TROUGH LEVEL WAS 15.8 MCG/ML OVERNIGHT. RECOMMEND PATIENT CONTINUE WITH VANCOMYCIN 1250 MG Q24H AT THIS TIME AND RECHECK TROUGH LEVEL ON 09/22/24.
--- NOTE | 2024-09-21 10:16 | EXP.ACUTE.PN ---
Subjective *Date: 09/21/24 *Time: 10:19 Medical Exam Vital signs and Labs for Last 24 Hours: Vital Signs Temp Pulse Pulse Resp BP BP Pulse Ox 09/21/24 08:00 98.0 F 87 21 136/92 H 100 09/21/24 06:05 09/21/24 05:00 09/21/24 04:00 98.6 F 97 H 16 135/83 96 09/21/24 03:00 09/21/24 01:00 09/21/24 00:00 97.9 F 85 16 131/83 95 09/20/24 23:00 09/20/24 21:00 09/20/24 20:00 09/20/24 20:00 98.2 F 96 H 16 154/93 H 98 09/20/24 18:57 09/20/24 16:30 93 H 18 151/87 H 92 L 09/20/24 16:00 98.5 F 86 20 150/95 H 100 09/20/24 16:00 93 H 09/20/24 15:30 89 22 172/99 H 98 09/20/24 15:00 09/20/24 15:00 84 24 141/91 H 98 09/20/24 14:43 86 20 140/85 98 09/20/24 14:26 98.1 F 79 16 138/81 100 09/20/24 14:18 98.1 F 83 16 134/77 100 09/20/24 14:08 98.1 F 84 16 135/71 100 09/20/24 13:58 98.1 F 84 16 145/76 H 100 09/20/24 13:48 98.1 F 81 16 131/83 100 09/20/24 13:38 98.1 F 80 16 138/72 100 09/20/24 12:13 98.1 F 84 17 157/69 H 98 09/20/24 11:58 84 17 157/69 H 98 09/20/24 11:45 82 20 178/97 H 98 09/20/24 11:30 98.1 F 83 21 162/95 H 98 09/20/24 11:16 85 22 149/93 H 98 09/20/24 11:00 84 20 153/86 H 99 09/20/24 10:30 85 21 149/88 H 98 O2 Del Method 09/21/24 08:00 09/21/24 06:05 Room Air 09/21/24 05:00 Room Air 09/21/24 04:00 Room Air 09/21/24 03:00 Room Air 09/21/24 01:00 Room Air 09/21/24 00:00 Room Air 09/20/24 23:00 Room Air 09/20/24 21:00 Room Air 09/20/24 20:00 Room Air 09/20/24 20:00 Room Air 09/20/24 18:57 Room Air 09/20/24 16:30 Room Air 09/20/24 16:00 Room Air 09/20/24 16:00 09/20/24 15:30 Room Air 09/20/24 15:00 Room Air 09/20/24 15:00 Room Air 09/20/24 14:43 Room Air 09/20/24 14:26 Room Air 09/20/24 14:18 Room Air 09/20/24 14:08 Room Air 09/20/24 13:58 09/20/24 13:48 Room Air 09/20/24 13:38 Room Air 09/20/24 12:13 Room Air 09/20/24 11:58 Room Air 09/20/24 11:45 Room Air 09/20/24 11:30 09/20/24 11:16 Room Air 09/20/24 11:00 Room Air 09/20/24 10:30 Intake and Output 09/20/24 09/21/24 09/21/24 23:59 07:59 15:59 Intake Total 1035 / 2709 350 / 350 Output Total 875 / 3555 1540 / 1940 400 / 1940 Balance 160 / -846 -1190 / -1590 -400 / -1590 Intake: Intake, Oral Amount 535 / 1070 Intake, Total IV Amount 500 / 1639 350 / 350 0.9 % Sodium Chloride 1000ML 1, 500 / 1339 000 ml @ 75 mls/hr IV .[id number] [facility] Rx#:[id number] Piperacillin/Tazo 3.375 gm In 0 100 / 100 .9 % Sodium Chloride 50 ml @ 100 mls/hr IV Q8H [facility] Rx#: [id number] Vancomycin/Water For Inj (Peg) 250 / 250 1.25 gm In 250 ml @ 125 mls/hr IV Q24H [facility] Rx#:[id number] Output: Output, Urine Amount 875 / 2335 1540 / 1940 400 / 1940 Other: Number of Voids 1 Number of Unmeasured Voids 0 Weight 203 lb 8 oz 203 lb 8 oz Patient Weight 09/21/24 23:59 Weight 203 lb 8 oz Laboratory Results - last 24 hr 09/20/24 10:55: POC Glucose 132 H 09/20/24 17:16: POC Glucose 191 H 09/20/24 20:22: Vancomycin Trough 15.8 H 09/21/24 01:08: Vancomycin Peak 15.1 09/21/24 05:40: WBC 6.1, RBC 3.52 L, Hgb 10.4 L, Hct 31.8 L, MCV 90.3, MCH 29.5, MCHC 32.7, RDW 13.1, Plt Count 153, MPV 9.9, Neut % (Auto) 74.0, Lymph % (Auto) 11.6, [place] % (Auto) 7.5, Eos % (Auto) 5.9, Baso % (Auto) 0.3, Neut # (Auto) 4.5, Lymph # (Auto) 0.7, [place] # (Auto) 0.5, Eos # (Auto) 0.4, Baso # (Auto) 0.0, Total Counted 100, Neutrophils % (Manual) 73, Lymphocytes % (Manual) 14, Monocytes % (Manual) 8, Eosinophils % (Manual) 5 H, Platelet Estimate Normal, RBC Morphology Normal, Sodium 140, Potassium 3.7, Chloride 110 H, Carbon Dioxide 21 L, Anion Gap 12.7, BUN 30 H, Creatinine 2.10 H, Estimated Creat Clear 48, Estimated GFR 32 L, Est GFR ( Amer) 39 L, Glucose 98, Calcium 8.0 L 09/21/24 05:42: POC Glucose 96 I & O for Labs for Last 24 Hours: Intake & Output 09/18/24 09/19/24 09/20/24 09/21/24 23:59 23:59 23:59 23:59 Intake Total 4847.278 / 4847.278 3031.663 / 3031.663 2709 / 2709 350 / 350 Output Total 3070 / 3070 6005 / 6075 2755 / 3555 194 / 1940 Balance 1777.278 / 1777.278 -2973.337 / -3043.337 -46 / -846 -1590 / -1590 Weight 187 lb 198 lb 6.4 oz 199 lb 3.002 oz 203 lb 8 oz Microbiology Reports for the Last 24 Hours: Microbiology 09/19/24 11:20 Blood Blood Culture - Preliminary NO GROWTH AFTER 24 HOURS 09/19/24 11:15 Blood Blood Culture - Preliminary NO GROWTH AFTER 24 HOURS 09/18/24 07:54 Toe,Left Fifth Gram Stain - Final 09/18/24 07:54 Toe,Left Fifth Wound Culture - Final Staphylococcus aureus Assessment and Plan *Assessment and plan (1) Cellulitis of left foot: Status: Acute Category: Medical Code(s): L03.116 - Cellulitis of left lower limb (2) Diabetic ulcer of right foot: Problem Comment: Right 5th toe DFU probes to bone Status: Acute Qualifiers: Diabetes mellitus type: type 2 Diabetic foot ulcer location: other Non-pressure ulcer stage: with fat layer exposed Qualified Code(s): E11.621 - Type 2 diabetes mellitus with foot ulcer; L97.512 - Non-pressure chronic ulcer of other part of right foot with fat layer exposed Category: Medical Code(s): E11.621 - Type 2 diabetes mellitus with foot ulcer; L97.519 - Non-pressure chronic ulcer of other part of right foot with unspecified severity (3) Diabetic ulcer of left foot: Status: Acute Qualifiers: Diabetes mellitus type: type 2 Diabetic foot ulcer location: other Non-pressure ulcer stage: with fat layer exposed Qualified Code(s): E11.621 - Type 2 diabetes mellitus with foot ulcer; L97.522 - Non-pressure chronic ulcer of other part of left foot with fat layer exposed Category: Medical Code(s): E11.621 - Type 2 diabetes mellitus with foot ulcer; L97.529 - Non-pressure chronic ulcer of other part of left foot with unspecified severity (4) Diabetes mellitus with diabetic neuropathy: Status: Acute Qualifiers: Diabetes mellitus terminal computer operator insulin use: without terminal computer operator use Diabetes mellitus type: type 2 Qualified Code(s): E11.40 - Type 2 diabetes mellitus with diabetic neuropathy, unspecified Category: Medical Code(s): E11.40 - Type 2 diabetes mellitus with diabetic neuropathy, unspecified (5) PAD (peripheral artery disease): Status: Acute Category: Medical Code(s): I73.9 - Peripheral vascular disease, unspecified (6) History of amputation of great toe: Status: Acute Category: Surgical Code(s): Z89.419 - Acquired absence of unspecified great toe (7) Skin ulcer of right great toe: Status: Acute Qualifiers: Non-pressure ulcer stage: limited to breakdown of skin Qualified Code(s): L97.511 - Non-pressure chronic ulcer of other part of right foot limited to breakdown of skin Category: Medical Code(s): L97.519 - Non-pressure chronic ulcer of other part of right foot with unspecified severity (8) Skin ulcer of third toe of left foot: Status: Acute Qualifiers: Non-pressure ulcer stage: limited to breakdown of skin Qualified Code(s): L97.521 - Non-pressure chronic ulcer of other part of left foot limited to breakdown of skin Category: Medical Code(s): L97.529 - Non-pressure chronic ulcer of other part of left foot with unspecified severity (9) Leg wound, right: Status: Acute Qualifiers: Encounter type: initial encounter Qualified Code(s): S81.801A - Unspecified open wound, right lower leg, initial encounter Category: Medical Code(s): S81.801A - Unspecified open wound, right lower leg, initial encounter (10) Osteoarthritis: Status: Acute Qualifiers: Laterality: right Osteoarthritis location: foot Osteoarthritis type: primary Qualified Code(s): M19.071 - Primary osteoarthritis, right ankle and foot Category: Medical Code(s): M19.90 - Unspecified osteoarthritis, unspecified site (11) Diabetic foot: Status: Acute Category: Medical Code(s): E11.8 - Type 2 diabetes mellitus with unspecified complications (12) Status post amputation of left great toe: Problem Comment: Surgery, 08/01/24: s/p Right hallux and lateral ankle DFU wound debridement x2, Left 5th toe DFU wound debridement, Left foot irrigation and debridement, hallux amputation Status: Acute Category: Surgical Code(s): Z89.412 - Acquired absence of left great toe (13) Septic shock: Status: Acute Category: Medical Code(s): A41.9 - Sepsis, unspecified organism; R65.21 - Severe sepsis with septic shock (14) Hypotension: Status: Acute Qualifiers: Hypotension type: hypotension due to hypovolemia Qualified Code(s): E86.1 - Hypovolemia Category: Medical Code(s): I95.9 - Hypotension, unspecified (15) Acute kidney injury: Status: Resolved Category: Medical Code(s): N17.9 - Acute kidney failure, unspecified (16) Hypomagnesemia: Status: Acute Category: Medical Code(s): E83.42 - Hypomagnesemia (17) NSTEMI (non-ST elevated myocardial infarction): Status: Acute Category: Medical Code(s): I21.4 - Non-ST elevation (NSTEMI) myocardial infarction (18) Heart failure with reduced ejection fraction: Status: Acute Category: Medical Code(s): I50.20 - Unspecified systolic (congestive) heart failure (19) Diabetes mellitus: Status: Chronic Qualifiers: Diabetes mellitus complication status: without complication Diabetes mellitus terminal computer operator insulin use: without terminal computer operator use Diabetes mellitus type: type 2 Qualified Code(s): E11.9 - Type 2 diabetes mellitus without complications Category: Medical Code(s): E11.9 - Type 2 diabetes mellitus without complications (20) Atrial fibrillation: Status: Acute Qualifiers: Atrial fibrillation type: paroxysmal Qualified Code(s): I48.0 - Paroxysmal atrial fibrillation Category: Medical Code(s): I48.91 - Unspecified atrial fibrillation (21) Chronic HFrEF (heart failure with reduced ejection fraction): Status: Acute Category: Medical Code(s): I50.22 - Chronic systolic (congestive) heart failure (22) Infection of skin due to methicillin resistant Staphylococcus aureus (MRSA): Status: Acute Category: Medical Code(s): L08.9 - Local infection of the skin and subcutaneous tissue, unspecified; B95.62 - Methicillin resistant Staphylococcus aureus infection as the cause of diseases classified elsewhere Plan Spoke to Cardiology. They are going to defer left heart cath at this time. Will request a mid line placement so patient can continue Vanc. IV at [place]. Plan discharge later today
[2024-09-21] MEDS: METOPROLOL SUCCINATE XL 25MG TABLET 12.5 MG PO (11:11)
[2024-09-21] MEDS: DAPAGLIFLOZIN PROPANEDIOL 10 MG TABLET PO (11:11)
[2024-09-21] MEDS: humaLOG 100 UNITS/ML 10ML VIAL (SSI) SUBCUT (11:13)
[2024-09-21 11:26] LABS: POC Glucose,Bedside 196 (70-110)
[2024-09-21 12:00] VITALS: BP 164/98; PULSE 82; RESP 19; TEMP 36.8; O2SAT 99
--- NOTE | 2024-09-21 12:34 | EXP.DC.SUM ---
General Admission date:: 09/17/24 Discharge date: 09/21/24 HPI HPI HPI: 63-year-old presents with multiple days of poor p.o. intake. General malaise. Nausea, vomiting. Patient is a poor historian and information largely obtained through evaluation and record review. Currently has no other complaints, denies any shortness of breath, pain anywhere including chest pain, no orthopnea, no swelling. Denies any feet pain, particularly on his right foot where there is a lesion he does not have pain. Noted to be hypotensive, given 1 L bolus of normal saline. Lactate was 4 with evidence of NSTEMI and CRISTEL. Given prior extensive cardiovascular history including coronary revascularization, peripheral artery disease revascularization and LV dysfunction as of an echo 1 year ago, the ER was hesitant to give additional fluids to avoid acute decompensated heart failure. Patient was subsequently started on Levophed. EKG NSR with frequent PAC, right bundle branch block. Bedside echo performed by myself demonstrated gross findings of: LVEF 45%, mild LVH, global hypokinesis. LVOT VTI 30, LVOT diameter 1.9, stroke-volume 85mL, cardiac output 8.5 L/min. RV function grossly normal. No significant valvular disease. RA pressure 0 to 3 mmHg. I independently took the history and consulted with other physicians in the care of the patient. I interpret independently interpreted diagnostic studies and radiographic studies. I reviewed prior physician documentation. 09/18/24- Podiatry consult 63year old male podiatry patient last seen by Dr. Trujillo 08/01/24 for Right hallux and lateral ankle DFU wound debridement x2, Left 5th toe DFU wound debridement, Left foot irrigation and debridement, hallux amputation. He was admitted 09/17/24 through the ER for Sepsis, and B/L diabetic foot ulcers. Patient is responsive when asked direct question but otherwise remained with eyes closed. Hospital Course Hospital Course Hospital Course: Patient was admitted to [facility] with septic shock and elevated troponin and CRISTEL. He was treated with Levophed for about 2 days to support his BP. His BP normalized but renal function did not. Cardiology decided to treat Non STEMI medically for now due to renal function. Wound on left foot toe was probed and tracted do bone, culture grew MRSA. The toe was amputated without difficulty. Mid line was placed in left arm for continued IV Vanc due to presumed MRSA bacteremia, even though blood cultures are all still negative at the time of discharg. Exam Data for Last 24 hours Vital signs and Labs for Last 24 Hours: Temp Pulse Resp BP Pulse Ox O2 Del Method O2 Flow Rate 98.2 F 82 19 164/98 H 99 Room Air 1 09/21/24 12:00 09/21/24 12:00 09/21/24 12:00 09/21/24 12:00 09/21/24 12:00 09/21/24 11:00 09/20/24 09:15 Laboratory Results - last 24 hr 09/20/24 17:16: POC Glucose 191 H 09/20/24 20:22: Vancomycin Trough 15.8 H 09/21/24 01:08: Vancomycin Peak 15.1 09/21/24 05:40: WBC 6.1, RBC 3.52 L, Hgb 10.4 L, Hct 31.8 L, MCV 90.3, MCH 29.5, MCHC 32.7, RDW 13.1, Plt Count 153, MPV 9.9, Neut % (Auto) 74.0, Lymph % (Auto) 11.6, [place] % (Auto) 7.5, Eos % (Auto) 5.9, Baso % (Auto) 0.3, Neut # (Auto) 4.5, Lymph # (Auto) 0.7, [place] # (Auto) 0.5, Eos # (Auto) 0.4, Baso # (Auto) 0.0, Total Counted 100, Neutrophils % (Manual) 73, Lymphocytes % (Manual) 14, Monocytes % (Manual) 8, Eosinophils % (Manual) 5 H, Platelet Estimate Normal, RBC Morphology Normal, Sodium 140, Potassium 3.7, Chloride 110 H, Carbon Dioxide 21 L, Anion Gap 12.7, BUN 30 H, Creatinine 2.10 H, Estimated Creat Clear 48, Estimated GFR 32 L, Est GFR ( Amer) 39 L, Glucose 98, Calcium 8.0 L 09/21/24 05:42: POC Glucose 96 09/21/24 11:10: POC Glucose 196 H I & O for Last 24 hours: Intake & Output 09/18/24 09/19/24 09/20/24 09/21/24 23:59 23:59 23:59 23:59 Intake Total 4847.278 / 4847.278 3031.663 / 3031.663 2709 / 2709 350 / 350 Output Total 3070 / 3070 6005 / 6075 2755 / 3555 2240 / 2240 Balance 1777.278 / 1777.278 -2973.337 / -3043.337 -46 / -846 -1890 / -1890 Weight 187 lb 198 lb 6.4 oz 199 lb 3.002 oz 203 lb 8 oz Microbiology Reports for the Last 24 Hours: Microbiology 09/19/24 11:20 Blood Blood Culture - Preliminary NO GROWTH AFTER 48 HOURS 09/19/24 11:15 Blood Blood Culture - Preliminary NO GROWTH AFTER 48 HOURS 09/17/24 21:05 Rectum CRE Surveillance Culture - Final Negative Constitutional Constitutional: no acute distress *Routine HEENT Exam Head: Present normocephalic and atraumatic *Routine Neck Exam Neck: Present supple *Routine Respiratory Exam Respiratory: Present CTA bilaterally (Anteriorly and posteriorly) *Routine Cardiovascular Exam Cardiovascular: Present RRR (Monitor showing sinus rhythm in the 90s) *Routine Abdominal Exam Abdominal: Present soft and normoactive bowel sounds; Absent tenderness or distended *Routine Extremities Exam Extremities: Absent calf tenderness Comments: Dressings on bilateral feet with Chi wrapping, s/p left fifth toe amputation *Routine Skin Exam Skin: Present dry and pallor *Routine Neurological Exam Neurological: Present alert and oriented X3 (Oriented x 2) Results Data Completed and Pending Labs on day of discharge: Labs from last 24 hours 09/21/24 09/21/24 09/21/24 11:10 05:42 05:40 WBC 6.1 RBC 3.52 L Hgb 10.4 L Hct 31.8 L MCV 90.3 MCH 29.5 MCHC 32.7 RDW 13.1 Plt Count 153 MPV 9.9 Neut % (Auto) 74.0 Lymph % (Auto) 11.6 [place] % (Auto) 7.5 Eos % (Auto) 5.9 Baso % (Auto) 0.3 Neut # (Auto) 4.5 Lymph # (Auto) 0.7 [place] # (Auto) 0.5 Eos # (Auto) 0.4 Baso # (Auto) 0.0 Total Counted 100 Neutrophils % (Manual) 73 Lymphocytes % (Manual) 14 Monocytes % (Manual) 8 Eosinophils % (Manual) 5 H Platelet Estimate Normal RBC Morphology Normal Sodium 140 Potassium 3.7 Chloride 110 H Carbon Dioxide 21 L Anion Gap 12.7 BUN 30 H Creatinine 2.10 H Estimated Creat Clear 48 Estimated GFR 32 L Est GFR ( Amer) 39 L Glucose 98 POC Glucose 196 H 96 Calcium 8.0 L Vancomycin Peak Vancomycin Trough 09/21/24 09/20/24 09/20/24 01:08 20:22 17:16 WBC RBC Hgb Hct MCV MCH MCHC RDW Plt Count MPV Neut % (Auto) Lymph % (Auto) [place] % (Auto) Eos % (Auto) Baso % (Auto) Neut # (Auto) Lymph # (Auto) [place] # (Auto) Eos # (Auto) Baso # (Auto) Total Counted Neutrophils % (Manual) Lymphocytes % (Manual) Monocytes % (Manual) Eosinophils % (Manual) Platelet Estimate RBC Morphology Sodium Potassium Chloride Carbon Dioxide Anion Gap BUN Creatinine Estimated Creat Clear Estimated GFR Est GFR ( Amer) Glucose POC Glucose 191 H Calcium Vancomycin Peak 15.1 Vancomycin Trough 15.8 H Preliminary micro results at discharge 09/19/24 11:20 Blood Culture - Preliminary Blood NO GROWTH AFTER 48 HOURS 09/19/24 11:15 Blood Culture - Preliminary Blood NO GROWTH AFTER 48 HOURS 09/17/24 17:20 Blood Culture - Preliminary Blood NO GROWTH AFTER 48 HOURS 09/17/24 17:20 Blood Culture - Preliminary Blood DS: Diagnosis Discharge Diagnosis (1) Septic shock: Status: Acute Code(s): A41.9 - Sepsis, unspecified organism; R65.21 - Severe sepsis with septic shock (2) Infection of skin due to methicillin resistant Staphylococcus aureus (MRSA): Status: Acute Code(s): L08.9 - Local infection of the skin and subcutaneous tissue, unspecified; B95.62 - Methicillin resistant Staphylococcus aureus infection as the cause of diseases classified elsewhere (3) Atrial fibrillation: Status: Acute Code(s): I48.91 - Unspecified atrial fibrillation Qualifiers: Atrial fibrillation type: paroxysmal Qualified Code(s): I48.0 - Paroxysmal atrial fibrillation (4) Abnormal echocardiogram: Status: Acute Code(s): R93.1 - Abnormal findings on diagnostic imaging of heart and coronary circulation (5) Chronic HFrEF (heart failure with reduced ejection fraction): Status: Acute Code(s): I50.22 - Chronic systolic (congestive) heart failure (6) Hypertension: Status: Acute Code(s): I10 - Essential (primary) hypertension Qualifiers: Hypertension type: unspecified Qualified Code(s): I10 - Essential (primary) hypertension (7) Hyperlipidemia: Status: Acute Code(s): E78.5 - Hyperlipidemia, unspecified Qualifiers: Hyperlipidemia type: unspecified Qualified Code(s): E78.5 - Hyperlipidemia, unspecified (8) Ischemic cardiomyopathy: Status: Acute Code(s): I25.5 - Ischemic cardiomyopathy (9) Coronary artery disease: Status: Acute Code(s): I25.10 - Atherosclerotic heart disease of [place] coronary artery without angina pectoris Qualifiers: Associated angina: without angina Coronary Disease-Associated Artery/Lesion type: [place] artery [place] vs. transplanted heart: [place] heart Qualified Code(s): I25.10 - Atherosclerotic heart disease of [place] coronary artery without angina pectoris (10) Hypotension: Status: Acute Code(s): I95.9 - Hypotension, unspecified Qualifiers: Hypotension type: hypotension due to hypovolemia Qualified Code(s): E86.1 - Hypovolemia (11) Skin ulcer of third toe of left foot: Status: Acute Code(s): L97.529 - Non-pressure chronic ulcer of other part of left foot with unspecified severity Qualifiers: Non-pressure ulcer stage: limited to breakdown of skin Qualified Code(s): L97.521 - Non-pressure chronic ulcer of other part of left foot limited to breakdown of skin (12) Skin ulcer of right great toe: Status: Acute Code(s): L97.519 - Non-pressure chronic ulcer of other part of right foot with unspecified severity Qualifiers: Non-pressure ulcer stage: limited to breakdown of skin Qualified Code(s): L97.511 - Non-pressure chronic ulcer of other part of right foot limited to breakdown of skin (13) History of amputation of great toe: Status: Acute Code(s): Z89.419 - Acquired absence of unspecified great toe (14) NSTEMI (non-ST elevated myocardial infarction): Status: Acute Code(s): I21.4 - Non-ST elevation (NSTEMI) myocardial infarction (15) Acute nontraumatic kidney injury: Status: Acute Code(s): N17.9 - Acute kidney failure, unspecified (16) Hypomagnesemia: Status: Acute Code(s): E83.42 - Hypomagnesemia (17) Severe sepsis with septic shock: Status: Acute Code(s): A41.9 - Sepsis, unspecified organism; R65.21 - Severe sepsis with septic shock (18) Elevated troponin I level: Status: Acute Code(s): R79.89 - Other specified abnormal findings of blood chemistry (19) Status post amputation of left great toe: Status: Acute Code(s): Z89.412 - Acquired absence of left great toe Problem details: Surgery, 08/01/24: s/p Right hallux and lateral ankle DFU wound debridement x2, Left 5th toe DFU wound debridement, Left foot irrigation and debridement, hallux amputation (20) Diabetes mellitus with diabetic neuropathy: Status: Acute Code(s): E11.40 - Type 2 diabetes mellitus with diabetic neuropathy, unspecified Qualifiers: Diabetes mellitus intermediate designer insulin use: without snf use Diabetes mellitus type: type 2 Qualified Code(s): E11.40 - Type 2 diabetes mellitus with diabetic neuropathy, unspecified (21) Diabetic ulcer of left foot: Status: Acute Code(s): E11.621 - Type 2 diabetes mellitus with foot ulcer; L97.529 - Non-pressure chronic ulcer of other part of left foot with unspecified severity Qualifiers: Diabetes mellitus type: type 2 Diabetic foot ulcer location: other Non-pressure ulcer stage: with fat layer exposed Qualified Code(s): E11.621 - Type 2 diabetes mellitus with foot ulcer; L97.522 - Non-pressure chronic ulcer of other part of left foot with fat layer exposed (22) Diabetic ulcer of right foot: Status: Acute Code(s): E11.621 - Type 2 diabetes mellitus with foot ulcer; L97.519 - Non-pressure chronic ulcer of other part of right foot with unspecified severity Qualifiers: Diabetes mellitus type: type 2 Diabetic foot ulcer location: other Non-pressure ulcer stage: with fat layer exposed Qualified Code(s): E11.621 - Type 2 diabetes mellitus with foot ulcer; L97.512 - Non-pressure chronic ulcer of other part of right foot with fat layer exposed Problem details: Right 5th toe DFU probes to bone (23) PAD (peripheral artery disease): Status: Acute Code(s): I73.9 - Peripheral vascular disease, unspecified (24) Diabetes mellitus, type 2: Status: Acute Code(s): E11.9 - Type 2 diabetes mellitus without complications Qualifiers: Diabetes mellitus complication detail: with peripheral angiopathy without gangrene Diabetes mellitus complication status: with circulatory complication Diabetes mellitus intermediate designer insulin use: without intermediate designer use Qualified Code(s): E11.51 - Type 2 diabetes mellitus with diabetic peripheral angiopathy without gangrene (25) Diabetic foot: Status: Acute Code(s): E11.8 - Type 2 diabetes mellitus with unspecified complications Meds Home Medications and Allergies Home Medications ?Medication ?Instructions ?Recorded ?Confirmed ?Type allopurinol 300 mg tablet 300 mg PO DAILY 02/28/24 09/18/24 History aspirin 81 mg tablet,delayed 81 mg PO DAILY 02/28/24 09/18/24 History release clopidogrel 75 mg tablet 75 mg PO DAILY 02/28/24 09/18/24 History glimepiride 4 mg tablet 2 mg PO DAILY 02/28/24 09/18/24 History metformin 500 mg tablet 500 mg PO BID 02/28/24 09/18/24 History omeprazole 40 mg capsule,delayed 40 mg PO DAILY 02/28/24 09/18/24 History release rosuvastatin 40 mg tablet (Crestor) 40 mg PO DAILY #90 tabs 07/23/24 09/18/24 Rx ertugliflozin 5 mg tablet 5 mg PO DAILY 09/18/24 09/18/24 History (Steglatro) acetaminophen 325 mg tablet 650 mg (2 x 325 mg) PO Q6HP PRN 09/21/24 Rx Fever Or Mild Pain (1-3) #1 tab apixaban 5 mg tablet (Eliquis) 5 mg PO BID #60 tabs 09/21/24 Rx docusate sodium 100 mg capsule 100 mg PO BID #1 cap 09/21/24 Rx metoprolol succinate 25 mg 12.5 mg (1/2 x 25 mg) PO DAILY #1 09/21/24 Rx tablet,extended release 24 hr tab vancomycin 1.25 gram/250 mL in 1.25 g (250 mL) IV Q24H 5 days 09/21/24 Rx diluent combination IV piggyback #1,250 mL New Prescriptions to Start Prescriptions: acetaminophen [place] apixaban [Eliquis] [place] docusate sodium [place] metoprolol succinate [place] vancomycin-diluent combo no.1 [place] Allergies Allergy/AdvReac Type Severity Reaction Status Date / Time No Known Allergies Allergy Verified 09/06/24 10:35 Discharge Plan Disposition Patient Disposition: Xfer Condition: Serious Discharge Order Discharge Orders: Discharge Order (Routine); Ordered 09/21/24 Ordered By: Willy Grissom Follow up Plan Follow up with: Odette Trujillo DPM [Staff Physician, Podiatry] - 09/27/24 11:30 am Prescriptions/Medication Reconciliation: New acetaminophen 325 mg Tablet 650 mg PO Q6HP PRN (Reason: Fever Or Mild Pain (1-3)) Qty: 1 0RF docusate sodium 100 mg Capsule 100 mg PO BID Qty: 1 0RF metoprolol succinate 25 mg Tablet Extended Release 24 Hr 12.5 mg PO DAILY Qty: 1 0RF vancomycin-diluent combo no.1 1.25 gram/250 mL Piggyback 1.25 g IV Q24H 5 Days Qty: 1250 0RF Eliquis 5 mg tablet 5 mg PO BID Qty: 60 0RF Continued rosuvastatin [Crestor] 40 mg tablet 40 mg PO DAILY Qty: 90 3RF Steglatro 5 mg tablet 5 mg PO DAILY metformin 500 mg tablet 500 mg PO BID clopidogrel 75 mg tablet 75 mg PO DAILY omeprazole 40 mg capsule,delayed release(DR/EC) 40 mg PO DAILY aspirin 81 mg tablet,delayed release (DR/EC) 81 mg PO DAILY glimepiride 4 mg tablet 2 mg PO DAILY allopurinol 300 mg tablet 300 mg PO DAILY Discontinued spironolactone 25 mg tablet 25 mg PO DAILY amlodipine 5 mg tablet 5 mg PO DAILY Patient Comments: TAKE 1 TABLET BY MOUTH ONCE DAILY carvedilol 3.125 mg tablet 3.125 mg PO BID Entresto 24-26 mg tablet 1 tab PO BID Ver[place]vo 10 mg tablet 10 mg PO DAILY Patient Comments: TAKE 1 TABLET BY MOUTH ONCE DAILY Problem Reconciliation Problems Reviewed?: Yes Patient Discharge Instructions ACTIVITY: Continue current activity DIET: continue same diet Additional Instructions: Pharmacy to dose Vancomycin. Please check CBC and BMP in 1 week. Patient Instructions: DI for Toe Amputation, DI for Surgical Site Infection, DI for Sepsis -- Adult Print Language: [place] Providers Primary Care Provider: Willy Grissom Admit Provider: Willy Grissom Attending Provider: Willy Grissom
[2024-09-21 16:35] LABS: POC Glucose,Bedside 212 (70-110)
[2024-09-21 16:35] LABS: POC Glucose,Bedside 51 (70-110)
[2024-09-21 16:58] LABS: POC Glucose,Bedside 75 (70-110)
[2024-09-21 17:33] LABS: POC Glucose,Bedside 176 (70-110)
[2024-09-22 15:33] LABS: POC Glucose,Bedside 162 (70-110)
== END 2024-09-21 14:39 | DRG 853 ==
LOC: ER 19:21 → 2ND 09-18 05:30 → ICU 09-18 17:01 → 2ND 09-20 17:57
PROVIDERS: Internal Medicine Pulmonary Disease; Nurse Practitioner; Nurse Practitioner Family; Physician Assistant; Podiatrist; Student in an Organized Health Care Education/Training Program; Admitting Provider Family Medicine; Emergency Provider Emergency Medicine; PCP Family Medicine; Visit Provider Family Medicine
PROC: 0Y6Y0Z3 Detachment at Left 5th Toe, Low, Open Approach (ICD-10-PCS; principal; 2024-09-20 13:30)
DX: A41.02 Sepsis due to Methicillin resistant Staphylococcus aureus (principal); I21.4 Non-ST elevation (NSTEMI) myocardial infarction; R65.21 Severe sepsis with septic shock; I50.23 Acute on chronic systolic (congestive) heart failure; N17.9 Acute kidney failure, unspecified; L03.116 Cellulitis of left lower limb; L97.526 Non-pressure chronic ulcer of other part of left foot with bone involvement without evidence of necrosis; M86.8X7 Other osteomyelitis, ankle and foot; E83.42 Hypomagnesemia; I45.10 Unspecified right bundle-branch block; E11.621 Type 2 diabetes mellitus with foot ulcer; E11.51 Type 2 diabetes mellitus with diabetic peripheral angiopathy without gangrene; D50.9 Iron deficiency anemia, unspecified; L97.512 Non-pressure chronic ulcer of other part of right foot with fat layer exposed; I25.10 Atherosclerotic heart disease of native coronary artery without angina pectoris; M19.071 Primary osteoarthritis, right ankle and foot; I25.5 Ischemic cardiomyopathy; I48.0 Paroxysmal atrial fibrillation; E86.1 Hypovolemia; E11.40 Type 2 diabetes mellitus with diabetic neuropathy, unspecified; E11.69 Type 2 diabetes mellitus with other specified complication; Z79.82 Long term (current) use of aspirin; Z79.84 Long term (current) use of oral hypoglycemic drugs; Z89.412 Acquired absence of left great toe; Z95.5 Presence of coronary angioplasty implant and graft; Z79.02 Long term (current) use of antithrombotics/antiplatelets; Z79.01 Long term (current) use of anticoagulants
CPT/HCPCS: 36410; 36415; 51702; 71275; 73620; 73630; 73700; 74177; 80048; 80053; 80061; 80202; 81001; 82009; 82803; 82962; 83605; 83690; 83735; 83880; 84100; 84145; 84436; 84443; 84484; 85007; 85014; 85018; 85025; 85048; 85049; 85610; 85651; 85730; 86140; 87040; 87070; 87077; 87081; 87086; 87186; 87205; 87633; 88304; 88305; 88311; 93005; 93306; 93923; 97110; 97162; 97166; 97530; 99291; C9144; J0131; J1580; J1644; J2405; J2543; J3370; J3372; J3475; J7030; J7120; Q9957; Q9967

== ENCOUNTER 2024-09-24 15:55 | Outpatient (CLI) | payer OTHER, SELFPAY ==
[2024-09-24 16:51] LABS: Anion Gap 12.1 mEq/L (5-15); Blood Urea Nitrogen 22 mg/dl (9-20); Carbon Dioxide 27 mmol/L (22.0-30.0); Chloride 104 mmol/L (98-107); Estimated Glomerular Filt Rate 52 ml/min (>60); GFR (African American) 62 ML/MIN (>60); Glucose 116 mg/dl (74-100); Potassium 4.1 mmoL/L (3.5-5.1); Sodium 139 mmol/L (136-145)
[2024-09-24 16:56] LABS: Vancomycin,Trough 14.4 ug/mL (5.0-10.0)
== END 2024-09-24 23:59 | disposition home or self-care (01) ==
LOC: LAB.DROPOF 15:56
PROVIDERS: PCP Family Medicine; Visit Provider Family Medicine
DX: L97.512 Non-pressure chronic ulcer of other part of right foot with fat layer exposed (principal); A41.9 Sepsis, unspecified organism; R65.21 Severe sepsis with septic shock
CPT/HCPCS: 80048; 80202

== ENCOUNTER 2024-10-23 14:31 | Outpatient (CLI) | payer OTHER, SELFPAY ==
--- OUTSIDE RECORDS SUMMARY | 2024-07-18 06:30 | XMS_ITS ---
Author Organization [facility] Address [address] [place] [id number] Care Team Providers Care Recycle Coordinator Name Role Phone Willy Grissom Primary Care Provider Allergies No Known Allergies REASON FOR VISIT bilateral foot wound and right leg wound f/u per Hui Kunz Medications Medication SIG (Take, Route, Frequency, Duration) Notes Start Date End Date Status Fish Oil 1000 MG 4 cap(s) orally once a day 12/28/2011 Active Omeprazole 40 MG 1 capsule 30 minutes before morning meal Orally Once a day; Duration: 90 days Active Rosuvastatin Calcium 40 MG 1 tablet Oral ly Once a day; Duration: 30 day(s) Active Ondansetron 4 MG 1 tablet on the tong ue and allow to dissolve Orally Once a day; Duration: 30 day(s) Active Aspirin 81 MG 1 tab(s) orally once a day; Duration: 30 day(s) Active metFORMIN HCl 500 MG 1 tab(s) orally 2 t imes a day; Duration: 90 days Active Brilinta 90 MG take 1 tablet by pavithra th twice daily; Duration: 90 days Active Glimepiride 4 MG take 1/2 (one-half) tablet by mouth once daily; Duration: 90 days Active Carvedilol 3.125 MG 1 tab(s) orally 2 ti mes a day; Duration: 90 days Active Steglatro 5 MG 1 tab(s) orally once a day (in the morning); Duration: 90 days Active Xarelto 2.5 MG 1 tablet Orally Two times a day; Duration: 90 days Active Allopurinol 300 MG 1 tab(s) orally once a day; Duration: 90 days Active Entresto 24-26 MG 1 tab(s) orally 2 ti mes a day; Duration: 90 days Active Verquvo 10 MG 1 tab(s) orally once a day; Duration: 90 days Active amLODIPine Besylate 5 MG 1 tab(s) orally once a day; Duration: 90 days Active GLUCOMETER DIRECTED 07/07/2020 Active Accu-Chek Danielle Plus 1 STRIP ONCE DAILY 07/07/2020 Active Vital Signs Blood pressure systolic 130 mm Hg 07/19/19 25 Blood pressure diastolic 80 mm Hg 025 Heart Rate 90 /min 07/18/2024 Height 70 in 07/18/2024 Weight 189 lbs 07/18/2024 BMI 27.12 kg/m2 07/18/2024 Encounters Encounter Location Date Provider Diagnosis [facility] [address] [facility] [address] [facility] [place] [address] [place] [id number] 07/18/2024 Willy Grissom Open wound of foot, unspecified laterality, subsequent encounter S91.309D and Medical non-compliance Z91.199 Assessments Encounter Date Diagnosis (ICD Code) Assessment Notes Treatment Notes Treatment Clinical Notes Section Notes 07/18/2024 Open wound of foot, unspecified laterality, subsequent encounter (ICD-10 - S91.309D) Patient to keep going to weekly wound clinic visits at [facility] 07/18/2024 Medical non-compliance (ICD-10 - Z91.199) Plan Of Treatment Treatment Notes Assessment Notes Open wound of foot, unspecif ied laterality, subsequent encounter Patient to keep going to weekly wound clinic visits at [facility] Next Appt Details Follow Up: via phone to repo rt progress, Reason: Provider Name:Willy Vinson ry, 12/28/2024 09:30:00 AM, [address] [facility] [address] [facility] [place], [address], [place], [id number], Progress Notes * LUPE SANTIZODOB:1960 (63 yo M)Acc No.[id number]:07/18/2024 Patient: LUPE MILES Provider: Shun Grissom M.D. :1960 A ge:63 Y S ex:Male Date:07/18/2024 Address:[address] [place] [address] [id number] Subjective: * Chief Complaints: * 1 . bilateral foot wound and right leg wound f/u per Hui Kunz. * HPI: D ermatology: 63 year old male presents with c/o Wound P t here to f/u on bilateral foot wounds and legs. Pt states he goes to wound clinic once a week. He is planning on moving in with his brother in [facility]. * ROS: C ARDIOLOGY: no D izziness. n o C hest pain. G ASTROENTEROLOGY: no N ausea. n o V omiting. U ROLOGY: no D ifficulty urinating. n o B lood in urine. * Medical History: T ype 2 Diabetes, Hypertension, Hypercholestrolemia, Hypertriglyceridemia, Gout, Non compliance, Coronary Artery Disease, Heart Attack, STEMI, Apr 2022, treated at [facility], Congestive Heart Failure, Dx: 2022, Peripheral vascular disease. * Surgical History: T onsillectomy , Percutaneous coronary intervention 04/2022, Heart Cath, 6 Stents Placed 02/08/2024. * Hospitalization/Major Diagno stic Procedure: R t Foot Pain- [facility] 01/15/2007, Dog Bite- [facility] 08/17/2011, Fall- [facility] 06/2015, Kidney Failure- [facility] 11/2017. * Family History: F ather: unknown. M other: . P aternal Grand Father: unknown. P aternal Grand Mother: unknown. M aternal Grand Father: unknown. M aternal Grand Mother: unknown. 1 brother(s) . . * Social History: C URRENT TOBACCO USE S moking Status: Patient does NOT smoke. C affeine: yes, frequency:daily. Exercise: yes, walks 3-6 miles per day. Home smoke detector use: yes. Marital Status: Single. New since last visit: none. Occupation: yes. Past smoking status: no, Smoking status: Does not smoke. Occup. exposure: none. Recreational drug use: no. Alcohol: no. Sexually active: no.. Travel ouside [place]: no. * Medications: T aking Rosuvastatin Calcium 40 MG Tablet 1 tablet Orally Once a day , Taking Ondansetron 4 MG Tablet Disintegrating 1 tablet on the tongue and allow to dissolve Orally Once a day , Taking Aspirin 81 MG Tablet Delayed Release 1 tab(s) orally once a day , Taking Fish Oil 1000 MG Capsule 4 cap(s) orally once a day , Taking GLUCOMETER DIRECTED , Taking Accu-Chek Danielle Plus 1 STRIP ONCE DAILY , Taking Xarelto 2.5 MG Tablet 1 tablet Orally Two times a day , Taking Allopurinol 300 MG Tablet 1 tab(s) orally once a day , Taking Entresto 24-26 MG Tablet 1 tab(s) orally 2 times a day , Taking Verquvo 10 MG Tablet 1 tab(s) orally once a day , Taking amLODIPine Besylate 5 MG Tablet 1 tab(s) orally once a day , Taking Carvedilol 3.125 MG Tablet 1 tab(s) orally 2 times a day , Taking Steglatro 5 MG Tablet 1 tab(s) orally once a day (in the morning) , Taking Glimepiride 4 MG Tablet take 1/2 (one-half) tablet by mouth once daily , Taking metFORMIN HCl 500 MG Tablet 1 tab(s) orally 2 times a day , Taking Brilinta 90 MG Tablet take 1 tablet by mouth twice daily , Taking Omeprazole 40 MG Capsule Delayed Release 1 capsule 30 minutes before morning meal Orally Once a day , Medication List reviewed and reconciled with the patient * Allergies: N .K.D.A. Objective: * Vitals: W t: 189, Temp: 98.0, BP: 130/80, HR: 90, Nurse: eamon, Ht: 70, BMI:27.12. * Examination: G eneral Examination: General Appearance: N AD. Assessment: * Assessment: 1. O pen wound of foot, unspecified laterality, subsequent encounter - S91.309D (Primary) ? 2 . M edical non-compliance - Z91.199 Plan: * Treatment: * Procedure Codes: 3 075F SYST BP GE 130 - 139MM HG, 3079F DIAST BP 80-89 MM HG * Follow Up: v ia phone to report progress * Images: Billing Information: * Visit Code: 20026 Office Visit, Est Pt., Level 3. * Procedure Codes: 3075F SYST BP GE 130 - 139MM HG. 3079F DIAST BP 80-89 MM HG. * Electronic signature of Leeanna Grissom MD on 10/23/2024 at 02:35 PM EDT Sign off status: Pending * Provider: Shun Grissom M.D. Date: 0 07/18/2024 Generated for Taylor hudson/Matheus/lEenaitting on: 0 10/23/2024 02:35 PM EDT History and Physical Notes * HPI (History of Present Illness) Category Sub-Category Detail Notes Category Not es Dermatology Wound Pt here to f/u o n bilateral foot wounds and legs. Pt states he goes to wound clinic once a week. He is planning on moving in with his brother in [facility] Examination Category Sub-Category Detail Notes Category Not es General Examination General Appearance: NAD
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
--- OUTSIDE RECORDS SUMMARY | 2024-10-02 09:45 | XMS_ITS ---
Author Organization [facility] Address [address] [place] [id number] Care Team Providers Care Pulp Bleacher Name Role Phone Willy Grissom Primary Care Provider [phone] Vane Cameron Unavailable [phone] Allergies No Known Allergies REASON FOR VISIT [facility] VISIT Medications Medication SIG (Take, Route, [...] W/U Status Risk Notes Problem Atrial fibrillation (94575706) A-fib (I48.91) Active confirmed Problem Constipation (19727293) Constipation (K59.00) Active confirmed Vital Signs Blood pressure systolic 136 mm Hg 10/03/19 25 Blood pressure diastolic 82 mm Hg 025 Heart Rate 92 /min 10/02/2024 Respiratory Rate 20 /min 10/02/2024 Weight 196.2 lbs 10/02/2024 Encounters Encounter Location Date Provider Diagnosis [address] [place] [id number] 10/02/2024 Vane Cameron Non-pressure chronic ulcer of other part of left foot with unspecified severity L97.529 ; Cellulitis of left foot L03.116 ; Non-pressure chronic ulcer of other part of right foot with unspecified severity L97.519 ; History of amputation of great toe Z89.419 ; Type 2 diabetes mellitus without complication E11.9 ; Atherosclerosis of [place] coronary artery without angina pectoris, unspecified whether [place] or transplanted heart I25.10 ; Congestive heart [...] complication (ICD-10 - E11.9) 10/02/2024 Atherosclerosis of [place] coronary artery without angina pectoris, unspecified whether [place] or transplanted heart (ICD-10 - I25.10) 10/02/2024 [...] 10/02/2024 Other PICC line with rt care [facility] [place] diet Plan Of Treatment Medication Medication Name [...] foot Other PICC line with rt care [facility] [place] diet Next Appt Details Follow Up: 4 Weeks, Reason: Provider Name:Willy campos, 12/28/2024 09:30:00 AM, [address] [facility], [address], [place], [place], [id number], Progress Notes * LUPE SANTIZODOB:1960 (63 yo M)Acc No.[id number]:10/02/2024 Progress Notes Patient: LUPE MILES Provider: DENIA Reyes :1960 A ge:63 Y S ex:Male Date:10/02/2024 Address:[address] [place] [address] [id number] Pcp:Willy Grissom Subjective: * Chief Complaints: * 1 . [facility] VISIT. * HPI: H PI: For routine Halfway visit; chart reviewed and patient examined; see ROS; pt was discharged and readmitted after hospitalization for sepsis and amutation of left #5th toe; following are [facility] notes from this admission: General Admission [...] closed. Hospital Course: Patient was admitted to [facility] with septic shock and elevated troponin [...] He states he is currently staying in [facility] and receiving Abx through a PICC. He states he has minimal pain and denies having fever or nausea. Procedure: Left 5th toe amputation Date of surgery: 09/20/24 Pain scale (0-10): 1 Dressing: intact Immobilization: post op shoe 09/27/24: POV #1, POD #7d -SNF: [facility] -PICC, IV abx per Dr Grissom: Vanco. [...] Heart Attack, STEMI, Apr 2022, treated at [facility], Congestive Heart Failure, Dx: 2022, Peripheral [...] Diagno stic Procedure: R t Foot Pain- [facility] ER 01/15/2007, Dog Bite- [facility] ER 08/17/2011, Fall- [facility] ER 06/2015, Kidney Failure- [facility] 11/2017, [facility] with foot surgery -amputation of the 5th hallux and wound debridementto right and left foot 08/01-08/06/2024, [facility] with sepsis and amputation of 5th [...] 92, O2 Sat: 97%, Nurse: reviewed/recorded by [facility], RR: 20. * Examination: L ABS: date [...] % (Auto) 74.0, Lymph % (Auto) 11.6, [place] % (Auto) 7.5, Eos % (Auto) 5.9, Baso % (Auto) 0.3, Neut # (Auto) 4.5, Lymph # (Auto) 0.7, [place] # (Auto) 0.5, Eos # (Auto) 0.4, [...] - E11.9 6 . A therosclerosis of [place] coronary artery without angina pectoris, unspecified whether [place] or transplanted heart - I25.10 7 . [...] (in the morning). 4. A therosclerosis of [place] coronary artery without angina pectoris, unspecified whether [place] or transplanted heart Continue Metoprolol Succinate ER [...] * Images: Billing Information: * Visit Code: 30472 subs. level 4. * Procedure Codes: * Electronic signature of Ronit Cameron APRN on 10/23/2024 at 02:34 PM EDT Sign off status: Pending * Provider: DENIA Reyes Date: 0 10/02/2024 Generated for Taylor hudson/Matheus/Aleksandar on: 0 10/23/2024 02:34 PM EDT History and Physical Notes * Examination [...] Exam: alert and oriented LABS Creatinine 1.4 [facility] labs 09/20/24 17:16: POC Glucose 191 H 09/20/24 20:22: Vancomycin Trough 15.8 H 09/21/24 01:08: Vancomycin Peak 15.1 09/21/24 05:40: WBC 6.1, RBC 3.52 L, Hgb 10.4 L, Hct 31.8 L, MCV 90.3, MCH 29.5, MCHC 32.7, RDW 13.1, Plt Count 153, MPV 9.9, Neut % (Auto) 74.0, Lymph % (Auto) 11.6, Clarion % (Auto) 7.5, Eos % (Auto) 5.9, Baso % (Auto) 0.3, Neut # (Auto) 4.5, Lymph # (Auto) 0.7, Clarion # (Auto) 0.5, Eos # (Auto) 0.4, [...]
--- OUTSIDE RECORDS SUMMARY | 2024-10-23 14:35 | XMS_ITS | Clinical Summary ---
Author Organization [facility] Address [address] [place] [address] Care Team Providers Care Heating And Ventilating Worker Name Role Phone Willy Grissom MD Primary Care Provider + [phone] Allergies No known active allergies Medications amLODIPine (Norvasc) 5 MG tablet Take 1 tablet (5 mg) by mouth 1 (one) time each day. Active aspirin 81 MG EC tablet Take 1 tablet (81 mg) by mouth 1 (one) time each day. Active carvedilol (Coreg) 3.125 MG tablet Take 1 tablet (3.125 mg) by mouth 2 (two) times a day with meals. Active ertugliflozin (Steglatro) Take 1 tablet (5 mg) by mouth 1 (one) time each day in the morning. Active lovastatin (Mevacor) 20 MG tablet Take 1 tablet (20 mg) by mouth every night. Active metFORMIN (Glucophage) 500 MG tablet Take 1 tablet (500 mg) by mouth 2 (two) times a day with meals. Active omeprazole (PriLOSEC) [address] capsule Take 1 capsule (40 mg) by mouth 1 (one) time each day. Do not crush or chew. Active rosuvastatin (Crestor) 40 MG tablet Take 1 tablet (40 mg) by mouth 1 (one) time each day. Active sacubitril-vals eros (Entresto) 24-26 MG tablet Take 1 tablet by mouth 2 (two) times a day. Active ticagrelor (Brilinta) 90 MG tablet Take 1 tablet (90 mg) by mouth 2 (two) times a day. Active Vericiguat (Verquvo) 10 MG tablet Take 10 mg by mouth 1 (one) time each day. Active methocarbamol (Robaxin) 500 MG tablet Take 1 tablet (500 mg) by mouth 4 (four) times a day for 15 days. 60 tablet 5 Active White Petrolatum (Vaseline) ointment Apply to frostbite wounds daily as directed. 425 g 1 5 Active Active Problems Problem Noted Date Diagnosed Date Umbilical hernia 05/19/2024 Overview (05/19/2024): -Incidental -Noted on imaging; Fat containing umbilical hernia -Follow up with pcp for surveillance Renal cyst 05/19/2024 Overview (05/19/2024): -Incidental -Noted on imaging; bilateral renal cyst benign -NTD Adrenal nodule 05/19/2024 Overview (05/19/2024): -Incidental -Noted on imaging; Left adrenal nodule measuring up to 1.2 cm -Recommend CT adrenal protocol in the nonemergent setting for further evaluation (PCP) CRISTEL (acute kidney injury) 05/19/2024 Overview (05/21/2024): Scr. 1.39 Fluids Ctm 05/20: Resolved Frostbite of both feet, initial encounter 2024 Overview (05/23/2024): Frostbite protocol Vascular- Per Vascular Fellow, TPA not indicated Plastics- Notified of patients toes after post warming; dressing changes daily; f/u in vascular wound care clinic for chronic wounds 05/21: Reached out to plastics for further wound care management per frostbite protocol Continue outpatient follow up with established wound care clinic for chronic lower extremity wounds. [facility] wound care clinic Tuesday, 05/25 at 8am. They can assist with pulido bite wound monitoring, though will also follow up with [facility] as listed below. Plastic Surgery: Follow up with Dr. Mccarthy on 06/08 @10:00 AM for re-evaluation of bilateral feet/pulido bite wounds. [facility] , Room L- [address] [place] [address] #[phone] HTN (hypertension) 05/18/2024 Overview (05/18/2024): Resume home meds as able CAD (coronary artery disease) 05/18/2024 Overview (05/18/2024): Resume home meds as able HLD (hyperlipidemia) 05/18/2024 Overview (05/18/2024): Resume home meds as able PAD (peripheral artery disease) 05/18/2024 Overview (05/21/2024): Resume home meds as able Plan to resume aspirin once aware of if patient is eligible for surgical debridement. Holding Brilanta for now Type 2 diabetes mellitus wit h foot ulcer, without long-term current use of insulin 05/18/2024 Overview (05/18/2024): SSI Social History Tobacco Use Types Packs/Day Years Used Date Smoking Tobacco: Never Assessed Humiliation, Afraid, Rape, and Kick questionnair e Answer Date Recorded Within the last year, have y ou been afraid of your partner or ex-partner? No 05/18/2024 Within the last year, have y ou been humiliated or emotionally abused in other ways by your partner or ex-partner? No Within the last year, have y ou been kicked, hit, slapped, or otherwise physically hurt by your partner or ex-partner? No 05/18/2024 Within the last year, have y ou been raped or forced to have any kind of sexual activity by your partner or ex-partner? No 05/18/2024 Hunger Vital Sign Answer Date Recorded Within the past 12 months, y ou worried that your food would run out before you got the money to buy more. Never true 05/18/19 25 Within the past 12 months, t he food you bought just didn't last and you didn't have money to get more. Never true 05/18/2024 PRAPARE - Transportation Answer Date Re corded In the past 12 months, has l ack of transportation kept you from medical appointments or from getting medications? No 04/26 In the past 12 months, has l ack of transportation kept you from meetings, work, or from getting things needed for daily living? No 05/18/2024 Housing Stability Vital Sign Answer Nestor e Recorded In the last 12 months, was t here a time when you were not able to pay the mortgage or rent on time? No 05/18/2024 In the past 12 months, how m any times have you moved where you were living? 1 05/18/2024 At any time in the past 12 m [facility], were you homeless or living in a long-term (including now)? No 05/18/2024 Utilities Answer Date Recorded In the past 12 months has th e [employer], gas, oil, or water company threatened to shut off services in your home? No 05/18/2024 Sex and Gender Information Value Date Recorded Sex Assigned at Not on file Legal Sex Male 1:53 PM EDT Gender Identity Not on file Sexual Orientation Not on file Last Filed Vital Signs Vital Sign Reading Time Taken Comments Blood Pressure 134/84 05/23/2024 8:23 AM EST Pulse 63 05/23/2024 8:23 AM EST Temperature 37 C (98.6 F) 05/23/2024 6:05 AM EST Respiratory Rate 16 05/23/2024 6:05 AM EST Oxygen Saturation 94% 05/23/2024 8:23 AM EST Inhaled Oxygen Concentration - - Weight 90 kg (198 lb 6.6 oz) 05/21/2024 3:00 PM EST Height 177.8 cm (5' 10 ) 05/21/2024 3:00 PM EST Body Mass Index 28.47 05/21/2024 3:00 PM EST Plan of Treatment Health Maintenance Due Date Last Done Comments [facility]-Depression Screening 1960 [facility]-Diabetes: Hemoglobin A1C 1960 [facility]-/Child/Adol SDOH Screenings 1960 Diabetes: Dental Exam 1972 [facility]-Pneumococcal Vaccine: 50 + Years (1 of 2 - PCV) 1981 CT Colonography 11/02/2007 Colonoscopy 11/02/2007 FIT 11/02/2007 FOBT 11/02/2007 Sigmoidoscopy 11/02/2007 [facility]-Zoster Vaccines (1 of 2) 2012 [id number] Vaccine ( season) 2023 05/24/2021, 04/24/2021 [facility]- SDOH Screenings 11/15/2024 [facility]-Adult SDOH Screenings 11/15/2024 05/18/2024 [facility]-Influenza Vaccine (Seaso n Ended) 2024 FIT-DNA 08/27/2026 08/28/2023 [facility]-Colorectal Cancer Screening 08/27/2026 [facility]-DTaP,Tdap,and Td Vaccine s (2 - Td or Tdap) 05/17/2034 05/17/2024 [facility]-RSV Vaccine: 60+ Years o r (1 - 1-dose 75+ series) 2037 [facility]-Hepatitis A Vaccines Aged Out 019, 05/03/2018 No longer eligible based on patient's age to complete this topic [facility]-HIV Screening Completed 05/17/2024 [facility]-Hepatitis C Screening Completed 05/17/2024 [facility]-Obesity Intervention Completed 05/17/2024 HPV Vaccines Aged Out No longer eligi ble based on patient's age to complete this topic [facility]-HIB Vaccines Aged Out No longer e ligible based on patient's age to complete this topic [facility]-IPV Vaccines Aged Out No longer e ligible based on patient's age to complete this topic [facility]-Rotavirus Vaccines Aged Out No lo nger eligible based on patient's age to complete this topic Procedures Procedure Name Priority Date/Time Associated Diagnosis Comments HEPATITIS C ANTIBODY - ED W/REFLEX TO HCV QUANT PCR STAT 05/17/2024 6:41 PM EST ED HIV 1/2 ANTIBODY/ANTIGEN SCREEN WITH REFLEX TO HIV I/II DIFFERENTIATION STAT 05/17/2024 6:41 PM EST from Last 3 Months or Most Recently Relevant to Health Maintenance Results * ED HIV 1/2 Antibody/Antigen Screen w/Reflex to HIV 1/2 Differentiation (05/17/2024 6:41 PM EST) HIV 1 & 2 Antibody/Antigen Screen Non Reactive Non Reactive 05/17/2024 8:38 PM EST [facility] Comment:Screening for HIV 1 & 2 antibodies, and P24 antigen is NONREACTIVE. No confirmatory testing is required. Blood Venous blood specimen / Unknown Venipuncture / Unknown 05/17/2024 6:41 PM EST 05/17/2024 6:54 PM EST Maurilio Chatman MD LAB BLOOD ORDERABLES Final Result Performing Organization Address City/[facility]/ZIP Co de Phone Number [facility] [address] [place] [address] * Hepatitis C Antibody - ED (05/17/2024 6:41 PM EST) Hepatitis C Antibody Negative Negative 05/17/2024 7:34 PM EST [facility] Blood Venous blood specimen / Unknown Venipuncture / Unknown 05/17/2024 6:41 PM EST 05/17/2024 6:54 PM EST Maurilio Chatman MD LAB BLOOD ORDERABLES Final Result Performing Organization Address City/[facility] de Phone Number [facility] [address] [place] [address] from Last 3 Months or Most Recently Relevant to Health Maintenance Insurance Advance Directives * Full Code (Latest Code Status on File) Date Activated Date Inactivated Comments 05/18/2024 3:17 AM 05/23/2024 7:36 PM Question Answer Comments Patient has decision-making capacity? Yes Care Teams Heating And Ventilating Worker Relationship Specialty Start Date End Date Willy Grissom MD [address] [facility] [address], [place] [address] PCP - General 05/17/24
[2024-10-23 14:56] LABS: Hematocrit 37.3 % (42.0-52.0); Hemoglobin 12.4 g/dL (14.1-18.0); Immature Granulocytes % 0.8 %; Mean Corpuscular HGB Conc 33.2 g/dL (31.8-35.4); Mean Corpuscular Hemoglobin 30.0 pg (27.0-31.2); Mean Corpuscular Volume 90.3 fl (80-94); Nucleated Red Blood Cells % 0 %; Platelet Count 291 K/mm3 (142-424); Red Blood Count 4.13 M/mm3 (4.60-6.20); Red Cell Distribution Width-SD 43.7 fL; White Blood Count 7.1 K/mm3 (4.8-10.8)
[2024-10-23 15:18] LABS: Chloride 98 mmol/L (98-107); Potassium 4.2 mmoL/L (3.5-5.1); Sodium 137 mmol/L (136-145)
[2024-10-23 15:21] LABS: Anion Gap 16.2 mEq/L (5-15); Blood Urea Nitrogen 27 mg/dl (9-20); Calcium 9.0 mg/dl (8.4-10.2); Carbon Dioxide 27 mmol/L (22.0-30.0); Creatine Kinase 44 U/L (55-170); Creatinine,Serum 1.10 mg/dl (0.66-1.25); Estimated Glomerular Filt Rate 68 ml/min (>60); GFR (African American) 82 ML/MIN (>60); Glucose 172 mg/dl (74-100)
[2024-10-23 15:29] LABS: C-Reactive Protein 7.9 mg/L (0-4)
== END 2024-10-23 23:59 | disposition home or self-care (01) ==
LOC: LAB.DROPOF 14:33
PROVIDERS: PCP Family Medicine; Visit Provider Family Medicine
DX: M86.9 Osteomyelitis, unspecified (principal); A41.9 Sepsis, unspecified organism; L08.9 Local infection of the skin and subcutaneous tissue, unspecified; B95.62 Methicillin resistant Staphylococcus aureus infection as the cause of diseases classified elsewhere
CPT/HCPCS: 80048; 82550; 85025; 85651; 86140

== ENCOUNTER 2024-11-13 10:13 | Outpatient (CLI) | payer OTHER, SELFPAY ==
--- OUTSIDE RECORDS SUMMARY | 2024-07-18 06:30 | XMS_ITS ---
Author Organization [facility] Address [address] [place] [id number] Care Team Providers Care Independent Insurance Adjuster Name Role Phone Willy Grissom Primary Care Provider [phone] Allergies No Known Allergies REASON FOR VISIT [...] STRIP ONCE DAILY 07/07/2020 Active Vital Signs Weight 189 lbs 07/18/2024 Blood pressure systolic 130 mm Hg 07/19/19 25 Blood pressure diastolic 80 mm Hg 025 Heart Rate 90 /min 07/18/2024 Height 70 in 07/18/2024 BMI 27.12 kg/m2 07/18/2024 Encounters Encounter Location Date Provider Diagnosis [facility] [address] [facility] 36 [facility] [address] [place] [id number] 07/18/2024 Willy Grissom Open wound of foot, unspecified laterality, subsequent encounter S91.309D and Medical non-compliance Z91.199 Assessments Encounter Date Diagnosis (ICD Code) Assessment Notes Treatment Notes Treatment Clinical Notes Section Notes 07/18/2024 Open wound of foot, unspecified laterality, subsequent encounter (ICD-10 - S91.309D) Patient to keep going to weekly wound clinic visits at [facility] 07/18/2024 Medical non-compliance (ICD-10 - Z91.199) Plan Of Treatment Treatment Notes Assessment Notes Open wound of foot, unspecif ied laterality, subsequent encounter Patient to keep going to weekly wound clinic visits at [facility] Next Appt Details Follow Up: via phone to repo rt progress, Reason: Provider Name:Willy Vinson ry, 12/28/2024 09:30:00 AM, [address] [facility] 36 [facility], [address], [place], [phone], Progress Notes * LUPE SANTIZODOB:1960 (64 yo M)Acc No.[id number]:07/18/2024 Patient: LUPE MILES Provider: Shun Grissom M.D. :1960 A ge:63 Y S ex:Male Date:07/18/2024 Address:[address] [place] [address] [id number] Subjective: * Chief Complaints: * 1 . bilateral foot wound and right leg wound f/u per Hui Kunz. * HPI: D ermatology: 63 year old male presents with c/o Wound P t here to f/u on bilateral foot wounds and legs. Pt states he goes to wound clinic once a week. He is planning on moving in with his brother in [facility]. * ROS: C ARDIOLOGY: no D izziness. n o C hest pain. G ASTROENTEROLOGY: no N ausea. n o V omiting. U ROLOGY: no D ifficulty urinating. n o B lood in urine. * Medical History: T ype 2 Diabetes, Hypertension, Hypercholestrolemia, Hypertriglyceridemia, Gout, Non compliance, Coronary Artery Disease, Heart Attack, STEMI, Apr 2022, treated at [facility], Congestive Heart Failure, Dx: 2022, Peripheral vascular disease. * Surgical History: T onsillectomy , Percutaneous coronary intervention 04/2022, Heart Cath, 6 Stents Placed 02/08/2024. * Hospitalization/Major Diagno stic Procedure: R t Foot Pain- [facility] ER 01/15/2007, Dog Bite- [facility] ER 08/17/2011, Fall- [facility] ER 06/2015, Kidney Failure- [facility] 11/2017. * Family History: F ather: unknown. [...] * Images: Billing Information: * Visit Code: 57521 Office Visit, Est Pt., Level 3. * Procedure Codes: 3075F SYST BP GE 130 - 139MM HG. 3079F DIAST BP 80-89 MM HG. * Electronic signature of Leeanna Grissom MD on 11/14/2024 at 11:56 AM EDT Sign off status: Pending * Provider: Shun Grissom M.D. Date: 0 07/18/2024 Generated for Taylor hudson/Matheus/Elenaitting on: 0 11/14/2024 11:56 AM EDT History and Physical Notes * HPI (History of Present Illness) Category Sub-Category Detail Notes Category Not es Dermatology Wound Pt here to f/u o n bilateral foot wounds and legs. Pt states he goes to wound clinic once a week. He is planning on moving in with his brother in [facility] Examination Category Sub-Category Detail Notes Category Not es General Examination General Appearance: NAD
--- OUTSIDE RECORDS SUMMARY | 2024-08-07 11:00 | XMS_ITS ---
[facility] Organization [facility] Address [address] [place] [id number] Care Team Providers Care Glove Pairer Name Role Phone Willy Grissom Primary Care Provider [phone] Vane Cameron Unavailable [phone] Allergies No Known Allergies REASON FOR VISIT [facility] HOME VISIT Medications Medication SIG (Take, Route, Frequency, Duration) Notes Start Date End Date Status Vitamin C 500 MG 1 tablet Orally Once a day Active Acetaminophen 500 MG 1 capsule as needed Orally q6h prn Active Zinc 220 (50 Zn) MG 1 capsule Orally Onc e a day Active Allopurinol 300 MG 1 tab(s) orally once a day Active Omeprazole 40 MG 1 capsule 30 minutes before morning meal Orally Once a day Active Aspirin 81 MG 1 tab(s) orally once a day Active Plavix 75 MG 1 tablet Orally Once a day Active Vancomycin HCl 1.25 GM as directed Intra venous 1.75 and as per pharmacy Active levoFLOXacin 500 MG 1 tablet Orally Once a day Active Rosuvastatin Calcium 40 MG 1 tablet Orally Once a day Active Glimepiride 4 MG take 1/2 (one-half) tablet by mouth once daily; Duration: 90 days Active metFORMIN HCl 500 MG 1 tab(s) orally 2 t imes a day; Duration: 90 days Active Carvedilol 3.125 MG 1 tab(s) orally 2 ti mes a day; Duration: 90 days Active amLODIPine Besylate 5 MG 1 tab(s) orally once a day; Duration: 90 days Active Verquvo 10 MG 1 tab(s) orally once a day; Duration: 90 days Active Brilinta 90 MG take 1 tablet by pavithra th twice daily; Duration: 90 days Not-Taking Accu-Chek Danielle Plus 1 STRIP ONCE DAILY 07/07/2020 Not-Taking Steglatro 5 MG 1 tab(s) orally once a day (in the morning); Duration: 90 days Not-Taking Xarelto 2.5 MG 1 tablet Orally Two times a day; Duration: 90 days Not-Taking Entresto 24-26 MG 1 tab(s) orally 2 ti mes a day; Duration: 90 days Active GLUCOMETER DIRECTED 07/07/2020 Not-Ta max Fish Oil 1000 MG 4 cap(s) orally once a day 12/28/2011 Not-Taking Ondansetron 4 MG 1 tablet on the tong ue and allow to dissolve Orally Once a day; Duration: 30 day(s) Not-Taking Problems Problem Type SNOMED Code ICD Code Onset Dates Problem Status W/U Status Risk Notes Problem Osteomyelitis of left foot (0529365539204357) Osteomyelitis of left foot (M86.9) Active confirmed Problem Diabetic foot ulcer (891578521) Diabetic foot ulcer (E11.621) Active confirmed Problem Diabetes mellitus with neuropathy (953840000) Diabetes mellitus with neuropathy (E11.40) Active confirmed Problem Amputated big toe (926432418) Status post amputation of left great toe (Z89.412) Active confirmed Problem Gastroesophageal reflux disease (767964670) GERD (gastroesophagea l reflux disease) (K21.9) Active confirmed Vital Signs Weight 196.4 lbs 08/07/2024 Blood pressure systolic 135 mm Hg 08/08/19 25 Blood pressure diastolic 84 mm Hg 025 Heart Rate 77 /min 08/07/2024 Respiratory Rate 20 /min 08/07/2024 Encounters Encounter Location Date Provider Diagnosis [address] [place], [place] [id number] 08/07/2024 Vane Cameron Type 2 diabetes arjun itus without complication E11.9 ; Mixed hyperlipidemia E78.2 ; Hypertriglyceridemia E78.1 ; HTN (hypertension) I10 ; Congestive heart failure, unspecified HF chronicity, unspecified heart failure type I50.9 ; PAD (peripheral artery disease) I73.9 ; Osteomyelitis of left foot M86.9 ; Cellulitis of left foot L03.116 ; Diabetic foot ulcer E11.621 ; Diabetes mellitus with neuropathy E11.40 ; H/O hand surgery Z98.890 ; Status post amputation of left great toe Z89.412 ; Gout M10.9 ; Atherosclerosis of [place] coronary artery without angina pectoris, unspecified whether [place] or transplanted heart I25.10 ; S/P coronary artery stent placement Z95.5 and GERD (gastroesophageal reflux disease) K21.9 Assessments Encounter Date Diagnosis (ICD Code) Assessment Notes Treatment Notes Treatment Clinical Notes Section Notes 08/07/2024 Type 2 diabetes mellitus without complication (ICD-10 - E11.9) continue with FSBS AC and HS 08/07/2024 Mixed hyperlipidemia (ICD-10 - E78.2) 08/07/2024 Hypertriglyceridemia (ICD-10 - E78.1) 08/07/2024 HTN (hypertension) (ICD-10 - I10) 08/07/2024 Congestive heart failure, unspecified HF chronicity, unspecified heart failure type (ICD-10 - I50.9) 08/07/2024 PAD (peripheral oné ry disease) (ICD-10 - I73.9) 08/07/2024 Osteomyelitis of lef t foot (ICD-10 - M86.9) 08/07/2024 Cellulitis of left f oot (ICD-10 - L03.116) 08/07/2024 Diabetic foot ulcer (ICD-10 - E11.621) 08/07/2024 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) 08/07/2024 H/O hand surgery (ICD-10 - Z98.890) 08/07/2024 Status post amputati on of left great toe (ICD-10 - Z89.412) wpund care appt 08/13/2024; Podiatry appt 08/15/2024; continue with daily wound care; continue with Prostat 30 ml qd x 1 month; has picc line with routine care 08/07/2024 Gout (ICD-10 - M10.9) 08/07/2024 Atherosclerosis of [place] coronary artery without angina pectoris, unspecified whether [place] or transplanted heart (ICD-10 - I25.10) 08/07/2024 S/P coronary artery stent placement (ICD-10 - Z95.5) 08/07/2024 GERD (gastroesophage al reflux disease) (ICD-10 - K21.9) 08/07/2024 Other Discharge summary with available lab/diagnostic imaging results obtained and reviewed. Discharge medication list reconciled. Appropriate counseling provided. Moderate Complexity Plan Of Treatment Medication Medication Name Sig Start Date Stop Date Notes Allopurinol 300 MG 1 tab(s) orally once a day Omeprazole 40 MG 1 capsule 30 minutes before morning meal Orally Once a day Aspirin 81 MG 1 tab(s) orally once a day Plavix 75 MG 1 tablet Orally Once a day Vancomycin HCl 1.25 GM as directed Intra venous 1.75 and as per pharmacy levoFLOXacin 500 MG 1 tablet Orally Once a day Rosuvastatin Calcium 40 MG 1 tablet Orally Once a day Glimepiride 4 MG take 1/2 (one-half) tablet by mouth once daily; Duration: 90 days metFORMIN HCl 500 MG 1 tab(s) orally 2 t imes a day; Duration: 90 days Carvedilol 3.125 MG 1 tab(s) orally 2 ti mes a day; Duration: 90 days amLODIPine Besylate 5 MG 1 tab(s) orally once a day; Duration: 90 days Verquvo 10 MG 1 tab(s) orally once a day; Duration: 90 days Entresto 24-26 MG 1 tab(s) orally 2 ti mes a day; Duration: 90 days Treatment Notes Assessment Notes Type 2 diabetes mellitus wit hout complication continue with FSBS AC and HS Status post amputation of left great toe wpund care appt 08/13/2024; Podiatry appt 08/15/2024; continue with daily wound care; continue with Prostat 30 ml qd x 1 month; has picc line with routine care Other Discharge summary wi available lab/diagnostic imaging results obtained and reviewed. Discharge medication list reconciled. Appropriate counseling provided. Moderate Complexity Next Appt Details Follow Up: 1 Week, Reason: Provider Name:Willy Vinson ry, 12/28/2024 09:30:00 AM, [address] [facility], [address], [place], [place], [id number], Progress Notes * LUPE SANTIZODOB:1960 (64 yo M)Acc No.[id number]:08/07/2024 Progress Notes Patient: LUPE MILES Provider: DENIA Reyes :1960 A ge:63 Y S ex:Male Date:08/07/2024 Address:[address] [place], [id number] Pcp:Willy Grissom Subjective: * Chief Complaints: * 1 . [facility] HOME VISIT. * HPI: H PI: Patient is here today for a Transition of Care Visit. Discharge from the following Facility: [facility] , Discharge date: 08/06/2024 ,Date of phone contact following discharge: 08/07/2024. Documentation From [facility] during adm 08/06/2024 as follows: General Admission date:: 08/01/24 Discharge date: 08/06/24 HPI: Patient is a 63-year-old male presenting to the Emergency Department for evaluation of left toe wound with bone protruding through the wound. Patient reports he had frostbite to both feet in April. He has been seeing [facility] wound care clinic. Reports the right foot has improved significantly. Reports he went to wound care today and they saw a bone exposed to the left great toe and sent him to the ER. Patient has comorbidities of diabetes, peripheral neuropathy, gout, cardiac history, PAD. He does have a history of cardiac cath and lower extremity stent. (above as per Dr. Trujillo Hospital Course: On admission patient was seen by podiatry, Dr. Pearce who performed the following surgery:Right hallux and lateral ankle DFU wound debridement x2 Left 5th toe DFU wound debridement Left foot irrigation and debridement, hallux amputation On 08/01/2024 He was started on broad-spectrum IV antibiotics to include vancomycin and Zosyn. He was to have partial weight bearing to the left heel and short fracture boot versus postop shoe with walker. Each day he did feel better. He continued with some pain in the left toe. He was started on his metformin with sliding scale insulin coverage. Case management was consulted for discharge planning. halfway facility was planned. Physical therapy also worked with the patient. He showed improved tolerance to bilateral lower extremity strengthening and was noted to be able to ambulate walking 10 steps or more. He did eat well. Bowels were moving. He was voiding QS. On 08/06/2024 he was stable to be transferred to [facility] for ongoing wound care, IV antibiotics to be vancomycin and Levaquin, and PT OT rehab. PICC line inserted for ABX's The above as per [facility] documentation On adm to [place] pt walked in to the facility and to his room. Pt visited, examined and documentation reviewed; see ROS. * ROS: R ESPIRATORY: no S hortness of breath. n o C hest pain. n o?Cough. C ARDIOLOGY: no C hest pain. n o S hortness of breath. ? G ASTROENTEROLOGY: Positive for e ating without problems. n o V omiting. n o D iarrhea. H exam 08/06/2024/Amber Ramos Podiatry: Comment:: Right hallux dorsal toe DFU: 100% granular, 0.6 x 0.3 x 0.2cm, thru skin into subq. Right lateral ankle DFU: 100% granular, 3.0 x 2.8 x 0.2cm, thru skin into subq. Left 5th toe DFU: 100% granular. Left hallux amp sutures clean dry and intact. Mild localized edema, erythema. No new drainage, malodor or purulence. Neuro: Present alert and awake Ankle: bilateral: normal inspection Feet/Toes: bilateral: deformity (pes cavus), bilateral: nail abnormalities, bilateral: Ingrown Toenail, bilateral: onychomycosis and bilateral: wound (S/p left hallux amputation, cellulitis, left fifth toe DFU, right hallux DFU, right ankle ulcer) Comments:: Metatarsus varus bilateral feet, the metatarsal bones deviated inward no pain noted with active or passive ROM of the ankle, STJ or midtarsal joints, gastroc-soleus equinus b/l. Right 4-5th shaft of metatarsal old fracture, no pain to palpation. 08/06/24: POD #5 Podiatry TECHNOLOGY METHODOLOGY CONSULTANT and I saw patient together. -B/L foot/ankle dressing changed. -Wounds are stable. No bedside debridement today. -Sutures clean dry and intact to left hallux amp site. No new purulence noted. -Betadine soaked gauze, DSD applied. Plan: Discussed plan of care with Dr Grissom. -Stand from Podiatry stand point for d/c to SNF when ready. -Rec SNF placement, pending [place]. -Continue IV abx per Dr Grissom: broad spectrum coverage: Vanco, Zosyn. -Nursing to do daily dressing changes. -Daily dsg: betadine soaked gauze to left hallux amp site, dry sterile dressing (joss, rolando). Other wounds (L 5th toe, R hallux, R lateral ankle): silver (or collagen) to wounds, secure with dry sterile dressing. -PWB in b/l post op shoes, walker. -Appt scheduled in one week with [facility] wound care clinic: 08/13/24. -Appt scheduled in 1-2 weeks with Podiatry: 08/16/24. Documented By: Amber Pineda APRN 08/06/24 0723 Pt will receive PT and OT and continue to be followed by podiatry. * Medical History: T ype 2 Diabetes, Hypertension, Hypercholestrolemia, Hypertriglyceridemia, Gout, Non compliance, Coronary Artery Disease, Heart Attack, STEMI, Apr 2022, treated at [facility], Congestive Heart Failure, Dx: 2022, Peripheral vascular disease, Cellulitis of lower legs. * Surgical History: T onsillectomy , Percutaneous coronary intervention 04/2022, Heart Cath, 6 Stents Placed 02/08/2024, Right hallux and lateral ankle diabetic foot ulcer(DFU) wound debridement; left 5th toe DFU wound debridement/irrigation and Hallux amputation 08/01/2024. * Hospitalization/Major Diagno stic Procedure: R t Foot Pain- [facility] ER 01/15/2007, Dog Bite- [facility] ER 08/17/2011, Fall- [facility] ER 06/2015, Kidney Failure- [facility] 11/2017, [facility] with foot surgery -amputation of the 5th hallux and wound debridementto right and left foot 08/01-08/06/2024. * Family History: F ather: unknown. M [...] ouside US: no. * Medications: T aking Acetaminophen 500 MG Capsule 1 capsule as needed Orally q6h prn , Taking Vitamin C 500 MG Capsule 1 tablet Orally Once a day , Taking Zinc 220 (50 Zn) MG Capsule 1 capsule Orally Once a day , Taking Plavix 75 MG Tablet 1 tablet Orally Once a day , Taking Vancomycin HCl 1.25 GM Solution Reconstituted as directed Intravenous 1.75 and as per pharmacy , Taking levoFLOXacin 500 MG Tablet 1 tablet Orally Once a day , Taking Rosuvastatin Calcium 40 MG Tablet 1 tablet Orally Once a day , Taking Aspirin 81 MG Tablet Delayed Release 1 tab(s) orally once a day , Taking Allopurinol 300 MG [...] orally 2 times a day , Taking Glimepiride 4 MG Tablet take 1/2 (one-half) tablet by mouth once daily , Taking metFORMIN HCl 500 MG Tablet 1 tab(s) orally 2 times a day , Taking Omeprazole 40 MG Capsule Delayed Release 1 capsule 30 minutes before morning meal Orally Once a day , Not-Taking Ondansetron 4 MG Tablet Disintegrating 1 tablet on the tongue and allow to dissolve Orally Once a day , Not-Taking Fish Oil 1000 MG Capsule 4 cap(s) orally once a day , Not- Taking GLUCOMETER DIRECTED , Not-Taking Accu-Chek Danielle Plus 1 STRIP ONCE DAILY , Not-Taking Xarelto 2.5 MG Tablet 1 tablet Orally Two times a day , Not-Taking Steglatro 5 MG Tablet 1 tab(s) orally once a day (in the morning) , Not-Taking Brilinta 90 MG Tablet take 1 tablet by mouth twice daily , Medication List reviewed and reconciled with the patient * Allergies: N .K.D.A. Objective: * Vitals: W t:196.4, Temp:98.2, BP:135/84, HR:77, O2 Sat:95%, Nurse:reviewed/recorded by [facility], RR:20. * P ast Orders: L ab:H-CBC (Order Date - 08/05/2024) (Collection Date & Time - 08/05/2024 07:11 AM) Result: rbc 3.64, hgb 11.3, hct 34.4, mcv 94.5 Value Reference Range WBC 5.2 4.8-10.8 - K/mm3 RBC 3.64 L 4.60-6.20 - M/mm3 HGB 11.3 L 14.1-18.0 - g/dL HCT 34.4 L 42.0-52.0 - % MCV 94.5 H 80-94 - fl MCH 31.0 27.0-31.2 - pg MCHC 32.8 31.8-35.4 - g/dL RDW 13.6 11.5-17.5 - % PLT 201 142-424 - K/mm3 MPV 9.3 7.4-10.4 - fl NE% 69.3 37.0-80.0 - % LY% 18.4 10-50 - % MO% 7.5 1.7-9.3 - % EO% 4.2 0.1-12.0 - % BA% 0.4 0.1-2.0 - % NE# 3.6 1.8-7.8 - K/mm3 LY# 1.0 0.7-4.5 - K/mm3 MO# 0.4 0.1-1.0 - K/mm3 EO# 0.2 0.0-0.4 - K/mm3 BA# 0.0 0-0.2 - K/mm3 RDW-SD 47.8 - fL NRBC% 0 - % NRBC# 0 - 10 3/uL L ab:H-BMP (Order Date - 08/05/2024) (Collection Date & Time - 08/05/2024 07:11 AM) Result: glu 109 Value Reference Range NA 140 136-145 - mmol/L K 3.8 3.5-5.1 - mmoL/L CL 106 98-107 - mmol/L CO2 23 22.0-30.0 - mmol/L GAP 14.8 5-15 - mEq/L BUN 12 9-20 - mg/dl CREATT 1.00 0.66-1.25 - mg/dl GFRAA 92 >60 - ML/MIN EGFR 76 >60 - ml/min GLU 109 H 74-100 - mg/dl CA 8.8 8.4-10.2 - mg/dl Creatinine Clearance Estimated 95 50-200 - mL/min L ab:Glycohemoglobin A1c (in house) (Order Date - 06/27/2024) (Collection Date & Time - 06/27/2024) Value Reference Range glycohemoglobin 9.2% 5 - 6.5 % * Examination: G eneral Examination: General Appearance: NAD, appears healthy, alert; sitting on the bedside. H eart: RRR. L ungs: CTAB A&P. A bdomen: bowel sounds present, soft and nontender. E xtremities: trace leg edema; bilateral feet with wraps . H labs Microbiology 08/01/24 15:42 Foot,Left - Other Bone Culture - Final Klebsiella oxytoca Proteus mirabilis Enterococcus faecalis 08/01/24 15:40 Foot,Left - Wound Gram Stain - Final 08/01/24 15:40 Foot,Left - Wound Wound Culture - Preliminary Proteus vulgaris Enterococcus faecalis Streptococcus porcinus 08/01/24 15:14 Blood Blood Culture - Preliminary NO GROWTH AFTER 4 DAYS 08/01/24 13:45 Blood Blood Culture - Preliminary NO GROWTH AFTER 4 DAYS 08/01/24 14:17 Foot,Left Gram Stain - Final 08/01/24 14:17 Foot,Left Wound Culture - Preliminary Proteus mirabilis Enterococcus raffinosus 08/05/24 07:11: WBC 5.2, RBC 3.64 L, Hgb 11.3 L, Hct 34.4 L, MCV 94.5 H, MCH 31.0, MCHC 32.8, RDW 13.6, Plt Count 201, MPV 9.3, Neut % (Auto) 69.3, Lymph % (Auto) 18.4, [place] % (Auto) 7.5, Eos % (Auto) 4.2, Baso % (Auto) 0.4, Neut # (Auto) 3.6, Lymph # (Auto) 1.0, [place] # (Auto) 0.4, Eos # (Auto) 0.2, Baso # (Auto) 0.0, Sodium 140, Potassium 3.8, Chloride 106, Carbon Dioxide 23, Anion Gap 14.8, BUN 12, Creatinine 1.00, Estimated Creat Clear 95, Estimated GFR 76, Est GFR ( Amer) 92, Glucose 109 H, Calcium 8.8 10/10/22 17:09: Urine Color Dk yellow, Urine Appearance Cloudy, Urine pH 5.5, Ur Specific [place] 1.025, Urine Protein 2+, Urine Glucose (UA) 2+, Urine Ketones Trace, Urine Blood 3+, Urine Nitrate Positive, Urine Bilirubin Negative, Urine Urobilinogen 1.0, Ur Leukocyte Esterase 1+ A, Urine RBC 20-50, Urine WBC 20-50, Ur Squamous Epith Cells 3-5, Urine Bacteria 2+ 10/10/22 17:33: WBC 17.2 H, RBC 4.99, Hgb 15.5, Hct 47.4, MCV 95.0 H, MCH 31.1, MCHC 32.7, RDW 14.4, Plt Count 204, MPV 8.0, Neut % (Auto) 92.1 H, Lymph % (Auto) 2.7 L, [place] % (Auto) 5.0, Eos % (Auto) 0.1, Baso % (Auto) 0.1, Neut # (Auto) 15.9 H, Lymph # (Auto) 0.5 L, [place] # (Auto) 0.9, Eos # (Auto) 0.0, Baso # (Auto) 0.0, Total Counted 100, Neutrophils % (Manual) 91 H, Lymphocytes % (Manual) 8 L, Monocytes % (Manual) 1 L, Platelet Estimate Normal, RBC Morphology Normal 10/10/22 17:33: Sodium 138, Potassium 4.0, Chloride 100, Carbon Dioxide 25, Anion Gap 17.0 H, BUN 17, Creatinine 1.40 H, Estimated Creat Clear 73, Estimated GFR 52 L, Est GFR ( Amer) 63, Glucose 159 H, Calcium 9.0, Total Bilirubin 1.2, AST 32, ALT 26, Alkaline Phosphatase 92, Total Protein 7.1, Albumin 4.3, Globulin 2.8, Albumin/Globulin Ratio 1.5, Procalcitonin 0.302 10/10/22 17:33: Lactate 2.2 H 10/10/22 18:45: SARS-CoV-2 (PCR) Not detected, Influenza A Untype (PCR) Not detected, Influenza Type B (PCR) Not detected 10/10/22 22:10: Lactate 2.7 H 10/11/22 00:25: Lactate 1.4 10/11/22 05:35: WBC 14.0 H, RBC 4.43 L, Hgb 13.8 L D, Hct 41.7 L, MCV 94.2 H, MCH 31.1, MCHC 33.1, RDW 14.4, Plt Count 183, MPV 7.9, Neut % (Auto) 89.5 H, Lymph % (Auto) 5.3 L, [place] % (Auto) 5.0, Eos % (Auto) 0.1, Baso % (Auto) 0.1, Neut # (Auto) 12.5 H, Lymph # (Auto) 0.7, [place] # (Auto) 0.7, Eos # (Auto) 0.0, Baso # (Auto) 0.0, Total Counted 100, Neutrophils % (Manual) 85 H, Lymphocytes % (Manual) 11, Monocytes % (Manual) 4, Platelet Estimate Normal, RBC Morphology Normal 10/11/22 05:35: Sodium 139, Potassium 3.9, Chloride 105, Carbon Dioxide 24, Anion Gap 13.9, BUN 20, Creatinine 1.30 H, Estimated Creat Clear 77, Estimated GFR 57 L, Est GFR ( Amer) 68, Glucose 61 L D, Calcium 7.9 L 10/11/22 05:35: ESR 35 H 10/11/22 05:35: C-Reactive Protein 239.0 H . X ray: Rt foot xray FINDINGS: Three views of the right foot show advanced degenerative changes of the midfoot and hindfoot. There is marked cortical thickening of the 3rd metatarsal which could be seen with chronic stress injury, remote fracture, or even chronic infection. There is no evidence of bone destruction. No gas is seen in the soft tissues. IMPRESSION: Chronic changes as above. 08/01/2024 lrft foot xray FINDINGS: Three views of the left foot show significant soft tissue loss of the 1st digit. The tuft is noted to extend beyond the soft tissues. No bone destruction is evident. No gas is seen in the soft tissues. There are moderate degenerative changes of the midfoot and 1st MTP joint. IMPRESSION: No bone destruction with significant soft tissue loss of the 1st digit. Assessment: * Assessment: 1. T ype 2 diabetes mellitus without complication - E11.9 (Primary) 2 . M ixed hyperlipidemia - E78.2 3 . H ypertriglyceridemia - E78.1 4 .?HTN (hypertension) - I10 5 . C ongestive heart failure, unspecified HF chronicity, unspecified heart failure type - I50.9 6 . P AD (peripheral artery disease) - I73.9 7 . O steomyelitis of left foot - M86.9 8 . C ellulitis of left foot - L03.116 S pecify :left and right lower leg 9 . D iabetic foot ulcer - E11.621 1 0. D iabetes mellitus with neuropathy - E11.40 1 1. H /O hand surgery - Z98.890 1 2.?Status post amputation of left great toe - Z89.412 1 3. G out - M10.9 & #160; 1 4. A therosclerosis of [place] coronary artery without angina pectoris, unspecified whether [place] or transplanted heart - I25.10 1 5. S /P coronary artery stent placement - Z95.5 1 6. G ERD (gastroesophageal reflux disease) - K21.9 ? Plan: * Treatment: 2. M ixed hyperlipidemia Continue Rosuvastatin Calcium Tablet, 40 MG, 1 tablet, Orally, Once a day. 3. H TN (hypertension) Refill amLODIPine Besylate Tablet, 5 MG, 1 tab(s), orally, once a day, 90 days, 90, Refills 1; R efill Carvedilol Tablet, 3.125 MG, 1 tab(s), orally, 2 times a day, 90 days, 180, Refills 1. ? 4. C ongestive heart failure, unspecified HF chronicity, unspecified heart failure type Refill Entresto Tablet, 24-26 MG, 1 tab(s), orally, 2 times a day, 90 days, 180, Refills 1; R efill Verquvo Tablet, 10 MG, 1 tab(s), orally, once a day, 90 days, 90, Refills 1. 5. S tatus post amputation of left great toe Continue Vancomycin HCl Solution Reconstituted, 1.25 GM, as directed, Intravenous, 1.75 and as per pharmacy; C ontinue levoFLOXacin Tablet, 500 MG, 1 tablet, Orally, Once a day. Notes: wpund care appt 08/13/2024; Podiatry appt 08/15/2024; continue with daily wound care; continue with Prostat 30 ml qd x 1 month; has picc line with routine care 6. G out Continue Allopurinol Tablet, 300 MG, 1 tab(s), orally, once a day. 7. A therosclerosis of [place] coronary artery without angina pectoris, unspecified whether [place] or transplanted heart Continue Plavix Tablet, 75 MG, 1 tablet, Orally, Once a day; C ontinue Aspirin Tablet Delayed Release, 81 MG, 1 tab(s), orally, once a day. 8. G ERD (gastroesophageal reflux disease) Continue Omeprazole Capsule Delayed Release, 40 MG, 1 capsule 30 minutes before morning meal, Orally, Once a day. 9. O thers Notes: Discharge summary with available lab/diagnostic imaging results obtained and reviewed. Discharge medication list reconciled. Appropriate counseling provided. Moderate Complexity * Procedure Codes: 9 9495 TRANS CARE [facility] 14 DAY DISCH, 1111F [facility] MED/[facility] MED MERGE, G2211 Complex e/m visit add on * Follow Up: 1 Week * Images: Billing Information: * Visit Code: 40557 subs. level 4. * Procedure Codes: 06662 TRANS CARE [facility] 14 DAY DISCH. 1111F DSCHR MED/[facility] MED MERGE. G2211 Complex e/m visit add on. * Electronic signature of Ronit Cameron APRN on 11/14/2024 at 11:56 AM EDT Sign off status: Pending * Provider: DENIA Reyes Date: 0 08/07/2024 Generated for Taylor Lozano/Elenaitting on: 0 11/14/2024 11:56 AM EDT History and Physical Notes * HPI (History of Present Illness) Category Sub-Category Detail Notes Category Not es HPI Patient is here toda y for a Transition of Care Visit. Discharge from the following Facility: [facility] ,Discharge date: 08/06/2024 ,Date of phone contact following discharge: 08/07/2024 Documentation From [facility] during adm 08/06/2024 as follows: General Admission date:: 08/01/24 Discharge date: 08/06/24 HPI: Patient is a 63-year-old male presenting to the Emergency Department for evaluation of left toe wound with bone protruding through the wound. Patient reports he had frostbite to both feet in April. He has been seeing [facility] wound care clinic. Reports the right foot has improved significantly. Reports he went to wound care today and they saw a bone exposed to the left great toe and sent him to the ER. Patient has comorbidities of diabetes, peripheral neuropathy, gout, cardiac history, PAD. He does have a history of cardiac cath and lower extremity stent. (above as per Dr. Trujillo Hospital Course: On admission patient was seen by podiatry, Dr. Pearce who performed the following surgery:Right hallux and lateral ankle DFU wound debridement x2 Left 5th toe DFU wound debridement Left foot irrigation and debridement, hallux amputation On 08/01/2024 He was started on broad-spectrum IV antibiotics to include vancomycin and Zosyn. He was to have partial weight bearing to the left heel and short fracture boot versus postop shoe with walker. Each day he did feel better. He continued with some pain in the left toe. He was started on his metformin with sliding scale insulin coverage. Case management was consulted for discharge planning. halfway facility was planned. Physical therapy also worked with the patient. He showed improved tolerance to bilateral lower extremity strengthening and was noted to be able to ambulate walking 10 steps or more. He did eat well. Bowels were moving. He was voiding QS. On 08/06/2024 he was stable to be transferred to [facility] for ongoing wound care, IV antibiotics to be vancomycin and Levaquin, and PT OT rehab. PICC line inserted for ABX's The above as per [facility] documentation On adm to [facility] pt walked in to the facility and to his room. Pt visited, examined and documentation reviewed; see ROS Examination Category Sub-Category Detail Notes Category Not es General Examination Heart: RRR [facility] labs Microbiology 08/01/24 15:42 Foot,Left - Other Bone Culture - Final Klebsiella oxytoca Proteus mirabilis Enterococcus faecalis 08/01/24 15:40 Foot,Left - Wound Gram Stain - Final 08/01/24 15:40 Foot,Left - Wound Wound Culture - Preliminary Proteus vulgaris Enterococcus faecalis Streptococcus porcinus 08/01/24 15:14 Blood Blood Culture - Preliminary NO GROWTH AFTER 4 DAYS 08/01/24 13:45 Blood Blood Culture - Preliminary NO GROWTH AFTER 4 DAYS 08/01/24 14:17 Foot,Left Gram Stain - Final 08/01/24 14:17 Foot,Left Wound Culture - Preliminary Proteus mirabilis Enterococcus raffinosus 08/05/24 07:11: WBC 5.2, RBC 3.64 L, Hgb 11.3 L, Hct 34.4 L, MCV 94.5 H, MCH 31.0, MCHC 32.8, RDW 13.6, Plt Count 201, MPV 9.3, Neut % (Auto) 69.3, Lymph % (Auto) 18.4, [place] % (Auto) 7.5, Eos % (Auto) 4.2, Baso % (Auto) 0.4, Neut # (Auto) 3.6, Lymph # (Auto) 1.0, [place] # (Auto) 0.4, Eos # (Auto) 0.2, Baso # (Auto) 0.0, Sodium 140, Potassium 3.8, Chloride 106, Carbon Dioxide 23, Anion Gap 14.8, BUN 12, Creatinine 1.00, Estimated Creat Clear 95, Estimated GFR 76, Est GFR ( Amer) 92, Glucose 109 H, Calcium 8.8 10/10/22 17:09: Urine Color Dk yellow, Urine Appearance Cloudy, Urine pH 5.5, Ur Specific [place] 1.025, Urine Protein 2+, Urine Glucose (UA) 2+, Urine Ketones Trace, Urine Blood 3+, Urine Nitrate Positive, Urine Bilirubin Negative, Urine Urobilinogen 1.0, Ur Leukocyte Esterase 1+ A, Urine RBC 20-50, Urine WBC 20-50, Ur Squamous Epith Cells 3-5, Urine Bacteria 2+ 10/10/22 17:33: WBC 17.2 H, RBC 4.99, Hgb 15.5, Hct 47.4, MCV 95.0 H, MCH 31.1, MCHC 32.7, RDW 14.4, Plt Count 204, MPV 8.0, Neut % (Auto) 92.1 H, Lymph % (Auto) 2.7 L, [place] % (Auto) 5.0, Eos % (Auto) 0.1, Baso % (Auto) 0.1, Neut # (Auto) 15.9 H, Lymph # (Auto) 0.5 L, [place] # (Auto) 0.9, Eos # (Auto) 0.0, Baso # (Auto) 0.0, Total Counted 100, Neutrophils % (Manual) 91 H, Lymphocytes % (Manual) 8 L, Monocytes % (Manual) 1 L, Platelet Estimate Normal, RBC Morphology Normal 10/10/22 17:33: Sodium 138, Potassium 4.0, Chloride 100, Carbon Dioxide 25, Anion Gap 17.0 H, BUN 17, Creatinine 1.40 H, Estimated Creat Clear 73, Estimated GFR 52 L, Est GFR ([facility] Amer) 63, Glucose 159 H, Calcium 9.0, Total Bilirubin 1.2, AST 32, ALT 26, Alkaline Phosphatase 92, Total Protein 7.1, Albumin 4.3, Globulin 2.8, Albumin/Globulin Ratio 1.5, Procalcitonin 0.302 10/10/22 17:33: Lactate 2.2 H 10/10/22 18:45: SARS-CoV-2 (PCR) Not detected, Influenza A Untype (PCR) Not detected, Influenza Type B (PCR) Not detected 10/10/22 22:10: Lactate 2.7 H 10/11/22 00:25: Lactate 1.4 10/11/22 05:35: WBC 14.0 H, RBC 4.43 L, Hgb 13.8 L D, Hct 41.7 L, MCV 94.2 H, MCH 31.1, MCHC 33.1, RDW 14.4, Plt Count 183, MPV 7.9, Neut % (Auto) 89.5 H, Lymph % (Auto) 5.3 L, [place] % (Auto) 5.0, Eos % (Auto) 0.1, Baso % (Auto) 0.1, Neut # (Auto) 12.5 H, Lymph # (Auto) 0.7, [place] # (Auto) 0.7, Eos # (Auto) 0.0, Baso # (Auto) 0.0, Total Counted 100, Neutrophils % (Manual) 85 H, Lymphocytes % (Manual) 11, Monocytes % (Manual) 4, Platelet Estimate Normal, RBC Morphology Normal 10/11/22 05:35: Sodium 139, Potassium 3.9, Chloride 105, Carbon Dioxide 24, Anion Gap 13.9, BUN 20, Creatinine 1.30 H, Estimated Creat Clear 77, Estimated GFR 57 L, Est GFR ( Amer) 68, Glucose 61 L D, Calcium 7.9 L 10/11/22 05:35: ESR 35 H 10/11/22 05:35: C-Reactive Protein 239.0 H Lungs: CTAB A&P Abdomen: bowel sounds present , soft and nontender Extremities: trace leg edema; nasim ateral feet with wraps General Appearance: NAD, appears healthy , alert; sitting on the bedside X ray 08/01/2024 Rt foot xray FINDINGS: Three views of the right foot show advanced degenerative changes of the midfoot and hindfoot. There is marked cortical thickening of the 3rd metatarsal which could be seen with chronic stress injury, remote fracture, or even chronic infection. There is no evidence of bone destruction. No gas is seen in the soft tissues. IMPRESSION: Chronic changes as above. 08/01/2024 lrft foot xray FINDINGS: Three views of the left foot show significant soft tissue loss of the 1st digit. The tuft is noted to extend beyond the soft tissues. No bone destruction is evident. No gas is seen in the soft tissues. There are moderate degenerative changes of the midfoot and 1st MTP joint.
--- OUTSIDE RECORDS SUMMARY | 2024-10-02 09:45 | XMS_ITS ---
Author Organization [facility] Address [address] [place] [id number] Care Team Providers Care Director Of Orthopedics Name Role Phone Willy Grissom Primary Care Provider Vane Cameron Unavailable [phone] Allergies No Known Allergies REASON FOR VISIT [facility] VISIT Medications Medication SIG (Take, Route, Frequency, Duration) Notes Start Date End Date Status Plavix 75 MG 1 tablet Orally Once a day Active Glimepiride 4 MG 1/2 tablet Orally On ce a day Active metFORMIN HCl 500 MG 1 tab(s) orally 2 t imes a day Active Acetaminophen 500 MG 2 capsule as needed Orally q6h prn Active Steglatro 5 MG 1 tab(s) orally once a day (in the morning) Active Docusate Sodium 100 MG 1 capsule as need ed Orally twice a day Active Metoprolol Succinate ER 25 MG 1/2 tablet Orally Once a day Active DAPTOmycin 350 MG as directed Intravenous Active Aspirin 81 MG 1 tab(s) orally once a day Active Eliquis 5 MG as directed Orally Active Allopurinol 300 MG 1 tab(s) orally once a day; Duration: 90 days Active Omeprazole 40 MG 1 capsule 30 minutes before morning meal Orally Once a day; Duration: 90 days Active Rosuvastatin Calcium 40 MG 1 tablet Orally Once a day; Duration: 90 days Active GLUCOMETER DIRECTED 07/07/2020 Not-Ta max Accu-Chek Danielle Plus 1 STRIP ONCE DAILY 07/07/2020 Not-Taking Verquvo 10 MG 1 tab(s) orally once a day; Duration: 90 days Not-Takin g Problems Problem Type SNOMED Code ICD Code Onset Dates Problem Status W/U Status Risk Notes Problem Atrial fibrillation (76964020) A-fib (I48.91) Active confirmed Problem Constipation (14022820) Constipation (K59.00) Active confirmed Vital Signs Weight 196.2 lbs 10/02/2024 Blood pressure systolic 136 mm Hg 10/03/19 25 Blood pressure diastolic 82 mm Hg 025 Heart Rate 92 /min 10/02/2024 Respiratory Rate 20 /min 10/02/2024 Encounters Encounter Location Date Provider Diagnosis [address] [place], [place] [id number] 10/02/2024 Vane Cameron Non-pressure chronic ulcer of other part of left foot with unspecified severity L97.529 ; Cellulitis of left foot L03.116 ; Non-pressure chronic ulcer of other part of right foot with unspecified severity L97.519 ; History of amputation of great toe Z89.419 ; Type 2 diabetes mellitus without complication E11.9 ; Atherosclerosis of tetlin coronary artery without angina pectoris, unspecified whether tetlin or transplanted heart I25.10 ; Congestive heart failure, unspecified HF chronicity, unspecified heart failure type I50.9 ; Gout M10.9 ; GERD (gastroesophageal reflux disease) K21.9 ; Mixed hyperlipidemia E78.2 ; PAD (peripheral artery disease) I73.9 ; S/P coronary artery stent placement Z95.5 ; 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 ; A-fib I48.91 and Constipation K59.00 Assessments Encounter Date Diagnosis (ICD Code) Assessment Notes Treatment Notes Treatment Clinical Notes Section Notes 10/02/2024 Non-pressure chronic ulcer of other part of left foot with unspecified severity (ICD-10 - L97.529) 10/02/2024 Cellulitis of left foot (ICD-10 - L03.116) 10/02/2024 Non-pressure chronic ulcer of other part of right foot with unspecified severity (ICD-10 - L97.519) 10/02/2024 History of amputation of great toe (ICD-10 - Z89.419) He will continue to follow with podiatryfor postop care of the left ft and wound on the right foot 10/02/2024 Type 2 diabetes mellitus without complication (ICD-10 - E11.9) 10/02/2024 Atherosclerosis of tetlin coronary artery without angina pectoris, unspecified whether tetlin or transplanted heart (ICD-10 - I25.10) 10/02/2024 Congestive heart failure, unspecified HF chronicity, unspecified heart failure type (ICD-10 - I50.9) 10/02/2024 Gout (ICD-10 - M10.9) 10/02/2024 GERD (gastroesophageal reflux disease) (ICD-10 - K21.9) 10/02/2024 Mixed hyperlipidemia (ICD-10 - E78.2) 10/02/2024 PAD (peripheral artery disease) (ICD-10 - I73.9) 10/02/2024 S/P coronary artery stent placement (ICD-10 - Z95.5) 10/02/2024 Neuropathy due to type 2 diabetes mellitus (ICD-10 - E11.40) 10/02/2024 A-fib (ICD-10 - I48.91) 10/02/2024 Constipation (ICD-10 - K59.00) 10/02/2024 Other PICC line with rt care [facility] diet Plan Of Treatment Medication Medication Name Sig Start Date Stop Date Notes Plavix 75 MG 1 tablet Orally Once a day Glimepiride 4 MG 1/2 tablet Orally Once a day metFORMIN HCl 500 MG 1 tab(s) orally 2 t imes a day Acetaminophen 500 MG 2 capsule as needed Orally q6h prn Steglatro 5 MG 1 tab(s) orally once a day (in the morning) Docusate Sodium 100 MG 1 capsule as need ed Orally twice a day Metoprolol Succinate ER 25 MG 1/2 tablet Orally Once a day DAPTOmycin 350 MG as directed Intravenous Aspirin 81 MG 1 tab(s) orally once a day Eliquis 5 MG as directed Orally Allopurinol 300 MG 1 tab(s) orally once a day; Duration: 90 days Omeprazole 40 MG 1 capsule 30 minutes before morning meal Orally Once a day; Duration: 90 days Rosuvastatin Calcium 40 MG 1 tablet Oral ly Once a day; Duration: 90 days Treatment Notes Assessment Notes History of amputation of great toe He wi ll continue to follow with podiatryfor postop care of the left ft and wound on the right foot Other PICC line with rt care [facility] diet Next Appt Details Follow Up: 4 Weeks, Reason: Provider Name:Willy campos, 12/28/2024 09:30:00 AM, [address] [facility], [address], [place], [place], [id number], Progress Notes * LUPE SANTIZODOB:1960 (64 yo M)Acc No.[id number]:10/02/2024 Progress Notes Patient: LUPE MILES Provider: DENIA Reyes :1960 A ge:63 Y S ex:Male Date:10/02/2024 Address:[address] [place] [address] [facility], [id number] Pcp:Willy Grissom Subjective: * Chief Complaints: * 1 . [facility] VISIT. * HPI: H PI: For routine [facility] visit; chart reviewed and patient examined; see ROS; pt was discharged and readmitted after hospitalization for sepsis and amutation of left #5th toe; following are [facility] notes from this admission: General Admission date::09/17/24 Discharge date: 09/21/24 HPI: 63-year-old presents with multiple days of poor p.o. intake. General malaise. Nausea, vomiting. Patient is a poor historian and information largely obtained through evaluation and record review. Currently has no other complaints, denies any shortness of breath, pain anywhere including chest pain, no orthopnea, no swelling. Denies any feet pain, particularly on his right foot where there is a lesion he does not have pain. Noted to be hypotensive, given 1 L bolus of normal saline. Lactate was 4 with evidence of NSTEMI and CRISTEL. Given prior extensive cardiovascular history including coronary revascularization, peripheral artery disease revascularization and LV dysfunction as of an echo 1 year ago, the ER was hesitant to give additional fluids to avoid acute decompensated heart failure. Patient was subsequently started on Levophed. EKG NSR with frequent PAC, right bundle branch block. Bedside echo performed by myself demonstrated gross findings of: LVEF 45%, mild LVH, global hypokinesis. LVOT VTI 30, LVOT diameter 1.9, stroke-volume 85mL, cardiac output 8.5 L/min. RV function grossly normal. No significant valvular disease. RA pressure 0 to 3 mmHg. I independently took the history and consulted with other physicians in the care of the patient. I interpret independently interpreted diagnostic studies and radiographic studies. I reviewed prior physician documentation. 09/18/24- Podiatry consult 63year old male podiatry patient last seen by Dr. Trujillo 08/01/24 for Right hallux and lateral ankle DFU wound debridement x2, Left 5th toe DFU wound debridement, Left foot irrigation and debridement, hallux amputation. He was admitted 09/17/24 through the ER for Sepsis, and B/L diabetic foot ulcers. Patient is responsive when asked direct question but otherwise remained with eyes closed. Hospital Course: Patient was admitted to [facility] with septic shock and elevated troponin and CRISTEL. He was treated with Levophed for about 2 days to support his BP. His BP normalized but renal function did not. Cardiology decided to treat Non STEMI medically for now due to renal function. Wound on left foot toe was probed and tracted do bone, culture grew MRSA. The toe was amputated without difficulty. Mid line was placed in left arm for continued IV Vanc due to presumed MRSA bacteremia, even though blood cultures are all still negative at the time of discharg. * ROS: R ESPIRATORY: no S hortness of breath. n o C hest pain. n o?Chest congestion. C ARDIOLOGY: no C hest pain. n o P alpitations. n o S hortness of breath. G ASTROENTEROLOGY: Positive for e ating without issues. n o N ausea.?no V omiting. n o D iarrhea. M USCULOSKELETAL: Positive for w bat with walking boot on the left foot; dressing on the right foot. H PI Postoperative (podiatry) History of Present Illness Patient is a 63 yr old male presenting today for his first POV for a left 5th toe amp. He states he is currently staying in [facility] and receiving Abx through a PICC. He states he has minimal pain and denies having fever or nausea. Procedure: Left 5th toe amputation Date of surgery: 09/20/24 Pain scale (0-10): 1 Dressing: intact Immobilization: post op shoe 09/27/24: POV #1, POD #7d -SNF: [facility] -PICC, IV abx per Dr Grissom: Vanco. -Patient doing very well denies any pain or complications with antibiotics. -Reviewed intraop findings, WCx and BCx: MRSA, VRE. Stop Vanco. -SNF called and new orders faxed: PICC, IV Dapto 1g q24h x3 wks (09/27-10/17/24). -Presents FWB in left short fx boot. -No RLE intact. Shoe/socks on per pt request. -Left foot dressing changed. -Left 5th toe amp site sutures remain clean dry and intact, improved erythema and no drainage noted. -Left foot dsg: Xeroform, betadine soaked gauze, joss and Chi applied. SNF Orders: -PICC, IV Dapto 1g q24h x3 wks (09/27-10/17/24). -Weekly labs: cbc, bmp, esr, crp, cpk. Fax to Dr Grissom and Dr Trujillo. -Daily dressing changes to left foot: Xeroform, betadine soaked gauze, joss and Chi. -PWB in left post op shoe or fracture boot, walker. He may use a regular tennis shoe to the right foot. -Follow up with Podiatry in 1, 2 weeks for skin check. (above note from podiatry office visit). * Medical History: T ype 2 Diabetes, Hypertension, Hypercholestrolemia, Hypertriglyceridemia, Gout, Non compliance, Coronary Artery Disease, Heart Attack, STEMI, Apr 2022, treated at [facility], Congestive Heart Failure, Dx: 2022, Peripheral vascular disease, Cellulitis of lower legs. * Surgical History: T onsillectomy , Percutaneous coronary intervention 04/2022, Heart Cath, 6 Stents Placed 02/08/2024, Right hallux and lateral ankle diabetic foot ulcer(DFU) wound debridement; left 5th toe DFU wound debridement/irrigation and Hallux amputation 08/01/2024, Surgery, 09/20/24: Left 5th toe amputation, Left 3rd toe wound debridement, Right hallux wound debridement Intraop Specimens: Left fifth toe bone culture: Staphylococcus aureus (MRSA), Enterococcus faecalis Left fifth toe bone path: Acute osteomyelitis, cellulitis and adjacent soft tissue, no tumor seen. Left toe path: Cutaneous ulceration and cellulitis with underlying acute osteomyelitis. Cellulitis and ulceration extends to the soft tissue and skin margin . * Hospitalization/Major Diagno stic Procedure: R t Foot Pain- [facility] ER 01/15/2007, Dog Bite- [facility] ER 08/17/2011, Fall- [facility] ER 06/2015, Kidney Failure- [facility] 11/2017, [facility] with foot surgery -amputation of the 5th hallux and wound debridementto right and left foot 08/01-08/06/2024, [facility] with sepsis and amputation of 5th digit on the left foot 09/17-09/21/2024. * Family History: F ather: unknown. M [...] ouside US: no. * Medications: T aking Eliquis 5 MG Tablet as directed Orally , Taking Docusate Sodium 100 MG Capsule 1 capsule as needed Orally twice a day , Taking Metoprolol Succinate ER 25 MG Tablet Extended Release 24 Hour 1/2 tablet Orally Once a day , Taking DAPTOmycin 350 MG Solution Reconstituted as directed Intravenous , Taking Allopurinol 300 MG Tablet 1 tab(s) orally once a day , Taking Aspirin 81 MG Tablet Delayed Release 1 tab(s) orally once a day , Taking Plavix 75 MG Tablet 1 tablet Orally Once a day , Taking Glimepiride 4 MG Tablet 1/2 tablet Orally Once a day , Taking Omeprazole 40 MG Capsule Delayed Release 1 capsule 30 minutes before morning meal Orally Once a day , Taking Rosuvastatin Calcium 40 MG Tablet 1 tablet Orally Once a day , Taking metFORMIN HCl 500 MG Tablet 1 tab(s) orally 2 times a day , Taking Acetaminophen 500 MG Capsule 2 capsule as needed Orally q6h prn , Taking Steglatro 5 MG Tablet 1 tab(s) orally once a day (in the morning) , Not-Taking Verquvo 10 MG Tablet 1 tab(s) orally once a day , Not-Taking GLUCOMETER DIRECTED , Not-Taking Accu-Chek Danielle Plus 1 STRIP ONCE DAILY , Discontinued Vancomycin HCl 1.25 GM Solution Reconstituted as directed Intravenous 1.75 and as per pharmacy , Discontinued levoFLOXacin 500 MG Tablet 1 tablet Orally Once a day , Discontinued amLODIPine Besylate 5 MG Tablet 1 tab(s) orally once a day , Discontinued Spironolactone 25 MG Tablet 1 tablet Orally Once a day , Discontinued Carvedilol 3.125 MG Tablet 1 tab(s) orally 2 times a day , Discontinued Entresto 24-26 MG Tablet 1 tab(s) orally 2 times a day , Discontinued Ondansetron 4 MG Tablet Disintegrating 1 tablet on the tongue and allow to dissolve Orally Once a day , Discontinued Fish Oil 1000 MG Capsule 4 cap(s) orally once a day , Discontinued Xarelto 2.5 MG Tablet 1 tablet Orally Two times a day , Discontinued Brilinta 90 MG Tablet take 1 tablet by mouth twice daily * Allergies: N .K.D.A. Objective: * Vitals: W t: 196.2, Temp: 97.6, BP: 136/82, HR: 92, O2 Sat: 97%, Nurse: reviewed/recorded by [facility], RR: 20. * Examination: L ABS: date of labs . C reatinine 1 .4. B UN?22. S odium 1 39. P otassium 4 .1, . c hloride 1 04. C O2 2 7. g lucose 1 16. c alcium 9 . H labs 09/20/24 17:16: POC Glucose 191 H 09/20/24 20:22: Vancomycin Trough 15.8 H 09/21/24 01:08: Vancomycin Peak 15.1 09/21/24 05:40: WBC 6.1, RBC 3.52 L, Hgb 10.4 L, Hct 31.8 L, MCV 90.3, MCH 29.5, MCHC 32.7, RDW 13.1, Plt Count 153, MPV 9.9, Neut % (Auto) 74.0, Lymph % (Auto) 11.6, Sampson % (Auto) 7.5, Eos % (Auto) 5.9, Baso % (Auto) 0.3, Neut # (Auto) 4.5, Lymph # (Auto) 0.7, Sampson # (Auto) 0.5, Eos # (Auto) 0.4, Baso # (Auto) 0.0, Total Counted 100, Neutrophils % (Manual) 73, Lymphocytes % (Manual) 14, Monocytes % (Manual) 8, Eosinophils % (Manual) 5 H, Platelet Estimate Normal, RBC Morphology Normal, Sodium 140, Potassium 3.7, Chloride 110 H, Carbon Dioxide 21 L, Anion Gap 12.7, BUN 30 H, Creatinine 2.10 H, Estimated Creat Clear 48, Estimated GFR 32 L, Est GFR ( Amer) 39 L, Glucose 98, Calcium 8.0 L 09/21/24 05:42: POC Glucose 96 09/21/24 11:10: POC Glucose 196 H last cultures of left ft revealed MRSA and VRE ; ABX changed from vanc to Daptomycin. G eneral Examination: General Appearance: N AD, alert, pleasant; appears well hydrated and nourished; observed walking to the BR in his rrom nd he ambulated without difficulty with left boot on. H eart: R RR. L ungs: C TAB A&P. A bdomen: b owel sounds present, soft and nontender. N eurologic Exam: a lert and oriented. E xtremities: d ressing with chi wrap on the right foot; dressing on the left foot with boot on. ? Assessment: * Assessment: 1. C ellulitis of left foot - L03.116 (Primary) S pecify :left and right lower leg 2 . N on-pressure chronic ulcer of other part of left foot with unspecified severity - L97.529 3 . N on-pressure chronic ulcer of other part of right foot with unspecified severity - L97.519 4 . H istory of amputation of great toe - Z89.419 5 . T ype 2 diabetes mellitus without complication - E11.9 6 . A therosclerosis of tetlin coronary artery without angina pectoris, unspecified whether tetlin or transplanted heart - I25.10 7 . C ongestive heart failure, unspecified HF chronicity, unspecified heart failure type - I50.9 8 . G out - M10.9 ?9. G ERD (gastroesophageal reflux disease) - K21.9 1 0. M ixed hyperlipidemia - E78.2 1 1. P AD (peripheral artery disease) - I73.9 1 2.?S/P coronary artery stent placement - Z95.5 1 3. N europathy due to type 2 diabetes mellitus - E11.40 1 4. A -fib - I48.91 1 5. C onstipation - K59.00 Plan: * Treatment: 2. H istory of amputation of great toe Continue Acetaminophen Capsule, 500 MG, 2 capsule as needed, Orally, q6h prn. Notes: He will continue to follow with podiatryfor postop care of the left ft and wound on the right foot 3. T ype 2 diabetes mellitus without complication Continue Glimepiride Tablet, 4 MG, 1/2 tablet, Orally, Once a day; C ontinue metFORMIN HCl Tablet, 500 MG, 1 tab(s), orally, 2 times a day; C ontinue Steglatro Tablet, 5 MG, 1 tab(s), orally, once a day (in the morning). 4. A therosclerosis of tetlin coronary artery without angina pectoris, unspecified whether tetlin or transplanted heart Continue Metoprolol Succinate ER Tablet Extended Release 24 Hour, 25 MG, 1/2 tablet, Orally, Once a day; C ontinue Aspirin Tablet Delayed Release, 81 MG, 1 tab(s), orally, once a day. 5. G out Continue Allopurinol Tablet, 300 MG, 1 tab(s), orally, once a day, 90 days, 90 Tablet, Refills 1.? 6. G ERD (gastroesophageal reflux disease) Continue Omeprazole Capsule Delayed Release, 40 MG, 1 capsule 30 minutes before morning meal, Orally, Once a day, 90 days, 90, Refills 1. 7. M ixed hyperlipidemia Continue Rosuvastatin Calcium Tablet, 40 MG, 1 tablet, Orally, Once a day, 90 days, 90 Tablet, Refills 1. 8. S /P coronary artery stent placement Continue Plavix Tablet, 75 MG, 1 tablet, Orally, Once a day. 9. A -fib Continue Eliquis Tablet, 5 MG, as directed, Orally. 10. C onstipation Continue Docusate Sodium Capsule, 100 MG, 1 capsule as needed, Orally, twice a day. 11. O thers Notes: PICC line with rt care [facility] diet * Follow Up: 4 Weeks * Images: Billing Information: * Visit Code: 78074 subs. level 4. * Procedure Codes: * Electronic signature of Ronit Cameron APRN on 11/14/2024 at 11:56 AM EDT Sign off status: Pending * Provider: DENIA Reyes Date: 0 10/02/2024 Generated for Taylor hudson/Matheus/Aleksandar on: 0 11/14/2024 11:56 AM EDT History and Physical Notes * Examination Category Sub-Category Detail Notes Category Not es General Examination Heart: RRR Lungs: CTAB A&P Abdomen: bowel sounds present , soft and nontender Extremities: dressing with chi wr ap on the right foot; dressing on the left foot with boot on General Appearance: NAD, alert, pleasant ; appears well hydrated and nourished; observed walking to the BR in his rrom nd he ambulated without difficulty with left boot on Neurologic Exam: alert and oriented LABS Creatinine 1.4 [facility] labs 09/20/24 17:16: POC Glucose 191 H 09/20/24 20:22: Vancomycin Trough 15.8 H 09/21/24 01:08: Vancomycin Peak 15.1 09/21/24 05:40: WBC 6.1, RBC 3.52 L, Hgb 10.4 L, Hct 31.8 L, MCV 90.3, MCH 29.5, MCHC 32.7, RDW 13.1, Plt Count 153, MPV 9.9, Neut % (Auto) 74.0, Lymph % (Auto) 11.6, Sampson % (Auto) 7.5, Eos % (Auto) 5.9, Baso % (Auto) 0.3, Neut # (Auto) 4.5, Lymph # (Auto) 0.7, Sampson # (Auto) 0.5, Eos # (Auto) 0.4, Baso # (Auto) 0.0, Total Counted 100, Neutrophils % (Manual) 73, Lymphocytes % (Manual) 14, Monocytes % (Manual) 8, Eosinophils % (Manual) 5 H, Platelet Estimate Normal, RBC Morphology Normal, Sodium 140, Potassium 3.7, Chloride 110 H, Carbon Dioxide 21 L, Anion Gap 12.7, BUN 30 H, Creatinine 2.10 H, Estimated Creat Clear 48, Estimated GFR 32 L, Est GFR ( Amer) 39 L, Glucose 98, Calcium 8.0 L 09/21/24 05:42: POC Glucose 96 09/21/24 11:10: POC Glucose 196 H last cultures of left ft revealed MRSA and VRE ; ABX changed from vanc to Daptomycin glucose 116 Potassium 4.1, Sodium 139 BUN 22 calcium 9 chloride 104 CO2 27 date of labs 09/24/2024
--- OUTSIDE RECORDS SUMMARY | 2024-11-14 11:56 | XMS_ITS | Clinical Summary ---
Author Organization [facility] Address [address] [place] [address] Care Team Providers Care Senior Technical Trainer Name Role Phone Willy Grissom MD Primary Care Provider + [phone] Allergies No known active allergies Medications amLODIPine [...] care clinic for chronic lower extremity wounds. [facility] wound care clinic Tuesday, 05/25 at 8am. They can assist with pulido bite wound monitoring, though will also follow up with [facility] as listed below. Plastic Surgery: Follow up with Dr. Mccarthy on 06/08 @10:00 AM for re-evaluation of bilateral feet/pulido bite wounds. [facility] [address] [place] [address] #[phone] HTN (hypertension) 05/18/2024 Overview (05/18/2024): Resume home [...] any time in the past 12 [facility], were you homeless or living in a senior care (including now)? No 05/18/2024 Utilities Answer Date Recorded In the past 12 months has th e [employer] gas, oil, or water company threatened to [...] [facility]-Depression Screening 1960 [facility]-Diabetes: Hemoglobin A1C 1960 [facility]-Infant/Child/Adol SDOH Screenings 1960 Diabetes: Dental Exam 1972 [facility]-Pneumococcal Vaccine: 50 + Years (1 of 2 - PCV) 1981 CT Colonography 11/02/2007 Colonoscopy 11/02/2007 FIT 11/02/2007 FOBT 11/02/2007 Sigmoidoscopy 11/02/2007 [facility]-Zoster Vaccines (1 of 2) 2012 [id number] Vaccine ( season) 2023 05/24/2021, 04/24/2021 [facility]- SDOH Screenings 11/15/2024 [facility]-Adult SDOH Screenings 11/15/2024 05/18/2024 [facility]-Influenza Vaccine (#1) 2024 FIT-DNA 08/27/2026 08/28/2023 [facility]-Colorectal Cancer Screening [...] Reactive Non Reactive 05/17/2024 8:38 PM EST [facility] Comment:Screening for HIV 1 & 2 antibodies, and P24 antigen is NONREACTIVE. No confirmatory testing is required. Blood Venous blood specimen / Unknown Venipuncture / Unknown 05/17/2024 6:41 PM EST 05/17/2024 6:54 PM EST Maurilio Chatman MD LAB BLOOD ORDERABLES Final Result [facility] [address] [place] [address] * Hepatitis C Antibody - ED (05/17/2024 6:41 PM EST) Hepatitis C Antibody Negative Negative 05/17/2024 7:34 PM EST [facility] Blood Venous blood specimen / Unknown Venipuncture / Unknown 05/17/2024 6:41 PM EST 05/17/2024 6:54 PM EST Maurilio Chatman MD LAB BLOOD ORDERABLES Final Result Performing Organization Address City/[facility] Co de Phone Number [facility] [address] [place] [address] from Last 3 Months or Most Recently Relevant to Health Maintenance [id number] Advance Directives * Full Code (Latest Code Status on File) Date Activated Date Inactivated Comments 05/18/2024 3:17 AM 05/23/2024 7:36 PM Question Answer Comments Patient has decision-making capacity? Yes Care Teams Senior Technical Trainer Relationship Specialty Start Date End Date Willy Grissom MD [address] [facility] [address] [place] [address] PCP - General 05/17/24
--- OUTSIDE RECORDS SUMMARY | 2024-11-14 11:57 | XMS_ITS | Patient Health Record ---
Author Organization [facility] Address [address] [facility] [address] [id number] Care Team Providers Care Human Resources Operations Coordinator Name Role Phone Willy Grissom Primary Care Provider Vane Cameron Unavailable [phone] Allergies No Known Allergies Results Component Value Reference Range Notes Glucose (In-House) Reviewed date:01/02/2024 03:17:06 PM Interpretation:141 Performing Lab: Notes/Report: 141 blood glucose 141 74 - 106 mg/dL Glycohemoglobin A1c (in hous e) Reviewed date:01/02/2024 03:17:06 PM Interpretation:7.6 Performing Lab: Notes/Report: 7.6 glycohemoglobin 7.6% 5 - 6.5 % P-Calcium, Ionized Reviewed date:01/02/2024 03:17:05 PM Interpretation:Normal Performing Lab: Notes/Report: Test performed by [facility] [address] [place], [place] [address] [address] , [address], [place] [address] Alexander Bradley MD, Public Safety Officer CLIA: [id number] Calcium, Ionized 5.02 4.60-5.30 mg/dL P-Comprehensive Metabolic Pa mercedes (CMP) Reviewed date:01/02/2024 03:17:05 PM Interpretation:gluc 139, pro 5.9, alk phos 144 Performing Lab: Notes/Report: Test performed by [facility] [address] [place], [place] [address] [address], [address], [place] [id number] Alexander Bradley MD, Public Safety Officer CLIA: [id number] Sodium 140 135-145 mmol/L Potassium 4.3 3.5-5.3 mmol/L Chloride 103 97-108 mmol/L CO2 22 22-32 mmol/L Glucose 139 65-99 mg/dL BUN 13 8-23 mg/dL Creatinine 0.98 0.70-1.30 mg/dL Calcium 9.0 8.6-10.4 mg/dL eGFR by Creatinine 88 >59 mL/min/1.73m2 Protein 5.9 6.0-8.3 g/dL Albumin 4.0 3.5-5.3 g/dL Alkaline Phosphatase 144 40-129 IU/L ALT (SGPT) 8 <5-55 IU/L AST (SGOT) 14 <5-46 IU/L Bilirubin, Total 0.4 <0.2-1.2 mg/dL A/G Ratio 2.1 1.1-2.5 P-Lipid Panel Reviewed date:01/02/2024 03:17:05 PM Interpretation:trig 309, hdl 29, chol/hdl 5.55, non-hdl 132 Performing Lab: Notes/Report: Test performed by [facility] [address] [place] [address] , [address], [place] [address] Alexander Bradley MD, Public Safety Officer CLIA: [id number] Cholesterol 161 <200 mg/dL Triglycerides 309 <150 mg/dL HDL Cholesterol 29 >39 mg/dL Cholesterol / HDL Ratio 5.55 0.00-4.99 Ratio Non-HDL Cholesterol 132 <130 mg/dL LDL Cholesterol (Calculation) 70 <130 mg/dL LDL Cholesterol Levels* Less than 100 mg/dL Optimal 100 to 129 mg/dL Near Optimal/ Above Optimal 130 to 159 mg/dL Borderline High 160 to 189 mg/dL High 190 mg/dL and above Very High * Categories as recommended by the 2004 ATPIII guidelines LDL/HDL Ratio 2.4 <3.3 Ratio ____ LDL Cholesterol Patient History ____ Test Date: 12/28/2023 LDL Results: 70 Units: mg/dL % Change: - ____ P-PSA Reviewed date:01/02/2024 03:17:06 PM Interpretation:Normal Performing Lab: Notes/Report: Test performed by [facility] [address] [place] [address] , [address], [place] [address] Alexander Bradley MD, Public Safety Officer CLIA: [id number] PSA 1.27 <4.00 ng/mL Please note this is an ultrasensitive PSA assay with a lower limit of detection of 0.014 ng/mL. This test is performed by the Rianna ECLIA methodology. Values obtained with different assay methods or kits cannot be directly compared. P-TSH reflex to FT4 Reviewed date:01/02/2024 03:17:06 PM Interpretation:Normal Performing Lab: Notes/Report: Test performed by [facility] [address] , [address], [place] [address] Alexander Bradley MD, Public Safety Officer CLIA: [id number] TSH reflex to FT4 1.99 0.43-5.25 mU/L P-Microalbumin/Creatinine, R andom Urine Sample Reviewed date:01/02/2024 03:17:06 PM Interpretation:a/c 54 Performing Lab: Notes/Report: Test performed by [facility] [address] , [address], [place] [address] Alexander Bradley MD, Public Safety Officer CLIA: [id number] Albumin/Creatinine Ratio, Urine 54 0-30 ug/mg Microalbumin, Urine, Random 6.3 Creatinine, Urine 117.3 P-Uric Acid Reviewed date:01/02/2024 03:17:06 PM Interpretation:Normal Performing Lab: Notes/Report: Test performed by [facility] [address] , [address], [place] [address] Alexander Bradley MD, Public Safety Officer CLIA: [id number] Uric Acid 4.0 3.4-8.0 mg/dL H-Vancomycin, Trough Reviewed date:09/21/2024 08:52:27 AM Interpretation: Performing Lab: Notes/Report: VANCT 15.8 5.0-10.0 ug/mL H-BMP Reviewed date:09/21/2024 08:52:26 AM Interpretation: Performing Lab: Notes/Report: NA 140 136-145 mmol/L K 3.7 3.5-5.1 mmoL/L CL 110 98-107 mmol/L CO2 21 22.0-30.0 mmol/L GAP 12.7 5-15 mEq/L BUN 30 9-20 mg/dl CREATT 2.10 0.66-1.25 mg/dl CRCLE 48 50-200 mL/min GFRAA 39 >60 ML/MIN EGFR 32 >60 ml/min GLU 98 74-100 mg/dl CA 8.0 8.4-10.2 mg/dl M-Complete Blood Count Man D if Reviewed date:09/21/2024 08:52:27 AM Interpretation: Performing Lab: Notes/Report: WBC 6.1 4.8-10.8 K/mm3 RBC 3.52 4.60-6.20 M/mm3 HGB 10.4 14.1-18.0 g/dL HCT 31.8 42.0-52.0 % MCV 90.3 80-94 fl MCH 29.5 27.0-31.2 pg MCHC 32.7 31.8-35.4 g/dL RDW 13.1 11.5-17.5 % PLT 153 142-424 K/mm3 MPV 9.9 7.4-10.4 fl NE% 74.0 37.0-80.0 % LY% 11.6 10-50 % MO% 7.5 1.7-9.3 % EO% 5.9 0.1-12.0 % BA% 0.3 0.1-2.0 % NE# 4.5 1.8-7.8 K/mm3 LY# 0.7 0.7-4.5 K/mm3 MO# 0.5 0.1-1.0 K/mm3 EO# 0.4 0.0-0.4 Kmm3 BA# 0.0 0-0.2 K/mm3 IFF MANUAL DIFFERENTIAL MANUAL DIFF TCC 100 NEUT%M 73 42-76 % LYMPH%M 14 10-50 % MONO%M 8 2-9 % EOS%M 5 0-3 % PLTE Normal RM Normal H-Vancomycin, Peak Reviewed date:09/21/2024 08:52:27 AM Interpretation: Performing Lab: Notes/Report: VANCP 15.1 11-39 ug/ml H-BMP Reviewed date:09/25/2024 11:57:37 AM Interpretation: Performing Lab: Notes/Report: FAX RESULTS TO [id number] NA 139 136-145 mmol/L K 4.1 3.5-5.1 mmoL/L CL 104 98-107 mmol/L CO2 27 22.0-30.0 mmol/L GAP 12.1 5-15 mEq/L BUN 22 9-20 mg/dl CREATT 1.40 0.66-1.25 mg/dl GFRAA 62 >60 ML/MIN EGFR 52 >60 ml/min GLU 116 74-100 mg/dl CA 9.0 8.4-10.2 mg/dl H-Vancomycin, Trough Reviewed date:09/25/2024 11:57:37 AM Interpretation: Performing Lab: Notes/Report: FAX RESULTS TO [id number] VANCT 14.4 5.0-10.0 ug/mL H-Vancomycin, Trough Reviewed date:08/06/2024 02:28:13 PM Interpretation:22.7 Performing Lab: Notes/Report: VANCT 22.7 5.0-10.0 ug/mL CRITICAL RESULT Results called and read back/verified to: Sha Brownlee RN on 08/03/24 at 2209 By Basilia Suggs H-CBC Reviewed date:08/21/2024 01:16:11 PM Interpretation:rbc 4.22, hgb 12.9, hct 38.9 Performing Lab: Notes/Report: WBC 5.7 4.8-10.8 K/mm3 RBC 4.22 4.60-6.20 M/mm3 HGB 12.9 14.1-18.0 g/dL HCT 38.9 42.0-52.0 % MCV 92.2 80-94 fl MCH 30.6 27.0-31.2 pg MCHC 33.2 31.8-35.4 g/dL RDW-SD 43.2 RDW 12.8 11.5-17.5 % PLT 186 142-424 K/mm3 MPV 9.1 7.4-10.4 fl NE% 73.0 37.0-80.0 % LY% 14.3 10-50 % MO% 6.6 1.7-9.3 % EO% 4.7 0.1-12.0 % BA% 0.5 0.1-2.0 % NRBC% 0 NE# 4.2 1.8-7.8 K/mm3 LY# 0.8 0.7-4.5 K/mm3 MO# 0.4 0.1-1.0 K/mm3 EO# 0.3 0.0-0.4 Kmm3 BA# 0.0 0-0.2 K/mm3 NRBC# 0 H-CMP Reviewed date:08/21/2024 01:16:11 PM Interpretation:NA 133, BUN 30, Glu 290, TP 6.0 Performing Lab: Notes/Report: NA 133 136-145 mmol/L K 4.4 3.5-5.1 mmoL/L CL 101 98-107 mmol/L CO2 22 22.0-30.0 mmol/L GAP 14.4 5-15 mEq/L BUN 30 9-20 mg/dl CREATT 1.00 0.66-1.25 mg/dl GFRAA 92 >60 ML/MIN EGFR 76 >60 ml/min GLU 290 74-100 mg/dl CA 8.9 8.4-10.2 mg/dl BILIT 0.5 0.2-1.3 mg/dl AST 22 17-59 U/L ALT 21 12-78 U/L TP 6.0 6.3-8.2 g/dl ALB 3.7 3.5-5.0 g/dl GLOB 2.3 1.3-3.2 g/dL AGRATIO 1.6 1.1-1.8 ALP 102 38-126 U/L H-CRP Reviewed date:08/21/2024 01:16:11 PM Interpretation:Normal Performing Lab: Notes/Report: CRP 2.4 0-4 mg/L H-Sed Rate Reviewed date:08/21/2024 01:16:11 PM Interpretation:21 Performing Lab: Notes/Report: ESR 21 0-20 mm/hr H-CRE Screen Reviewed date:09/21/2024 03:29:06 PM Interpretation: Performing Lab: Notes/Report: CRE Negative H-CBC Reviewed date:08/03/2024 01:26:26 PM Interpretation: Performing Lab: Notes/Report: WBC 6.8 4.8-10.8 K/mm3 RBC 3.75 4.60-6.20 M/mm3 HGB 11.6 14.1-18.0 g/dL HCT 35.3 42.0-52.0 % MCV 94.1 80-94 fl MCH 30.9 27.0-31.2 pg MCHC 32.9 31.8-35.4 g/dL RDW-SD 47.3 RDW 13.7 11.5-17.5 % PLT 203 142-424 K/mm3 MPV 9.4 7.4-10.4 fl NE% 77.6 37.0-80.0 % LY% 11.9 10-50 % MO% 7.6 1.7-9.3 % EO% 2.5 0.1-12.0 % BA% 0.1 0.1-2.0 % NRBC% 0 NE# 5.2 1.8-7.8 K/mm3 LY# 0.8 0.7-4.5 K/mm3 MO# 0.5 0.1-1.0 K/mm3 EO# 0.2 0.0-0.4 K/mm3 BA# 0.0 0-0.2 K/mm3 NRBC# 0 H-BMP Reviewed date:08/03/2024 01:26:26 PM Interpretation: Performing Lab: Notes/Report: NA 140 136-145 mmol/L K 3.7 3.5-5.1 mmoL/L CL 105 98-107 mmol/L CO2 24 22.0-30.0 mmol/L GAP 14.7 5-15 mEq/L BUN 14 9-20 mg/dl Delta: 11 on 08/02/24 CREATT 1.00 0.66-1.25 mg/dl Delta: 0.80 on 08/02/24 CRCLE 94 50-200 mL/min GFRAA 92 >60 ML/MIN Delta: 119 on 08/02/24 EGFR 76 >60 ml/min GLU 100 74-100 mg/dl Delta: 71 on 08/02/24 CA 9.0 8.4-10.2 mg/dl Glucose (In-House) Reviewed date:06/27/2024 11:24:40 AM Interpretation: Performing Lab: Notes/Report: blood glucose 206 74 - 106 mg/dL Glycohemoglobin A1c (in hous e) Reviewed date:06/27/2024 11:24:01 AM Interpretation: Performing Lab: Notes/Report: glycohemoglobin 9.2% 5 - 6.5 % P-Comprehensive Metabolic Pa mercedes (CMP) Reviewed date:06/29/2024 10:53:44 AM Interpretation:gluc 290, Cr 1.38, gfr 58, alk phos 130 Performing Lab: Notes/Report: Test performed by [facility] [address] [place] [address] , [address], [place] [address] Alexander Bradley MD, Public Safety Officer CLIA: [id number] Sodium 140 135-145 mmol/L Potassium 3.9 3.5-5.3 mmol/L Chloride 100 97-108 mmol/L CO2 24 22-32 mmol/L Glucose 290 65-99 mg/dL BUN 17 8-23 mg/dL Creatinine 1.38 0.70-1.30 mg/dL Calcium 8.9 8.6-10.4 mg/dL eGFR by Creatinine 58 >59 mL/min/1.73m2 Protein 6.0 6.0-8.3 g/dL Albumin 3.7 3.5-5.3 g/dL Alkaline Phosphatase 130 40-129 IU/L ALT (SGPT) 5 <5-55 IU/L AST (SGOT) <5.0 <5-46 IU/L Bilirubin, Total 0.4 <0.2-1.2 mg/dL A/G Ratio 1.6 1.1-2.5 P-Lipid Panel Reviewed date:06/29/2024 10:53:44 AM Interpretation:trigs 170, hdl 31 Performing Lab: Notes/Report: Test performed by [facility] [address] [place] [address] , [address], [place] [address] Alexander Bradley MD, Public Safety Officer [facility]: [id number] Cholesterol 93 <200 mg/dL Triglycerides 170 <150 mg/dL HDL Cholesterol 31 >39 mg/dL Cholesterol / HDL Ratio 3.00 0.00-4.99 Ratio Non-HDL Cholesterol 62 <130 mg/dL LDL Cholesterol (Calculation) 28 <130 mg/dL LDL Cholesterol Levels* Less than 100 mg/dL Optimal 100 to 129 mg/dL Near Optimal/ Above Optimal 130 to 159 mg/dL Borderline High 160 to 189 mg/dL High 190 mg/dL and above Very High * Categories as recommended by the 2004 ATPIII guidelines LDL/HDL Ratio 0.9 <3.3 Ratio ____ LDL Cholesterol Patient History ____ Test Date: 12/28/2023 LDL Results: 70 Units: mg/dL % Change: - ---- Test Date: 06/27/2024 LDL Results: 28 Units: mg/dL % Change: -60% ____ H-Vancomycin, Peak Reviewed date:08/06/2024 02:28:13 PM Interpretation:36.7 Performing Lab: Notes/Report: VANCP 36.7 11-39 ug/ml H-CBC Reviewed date:08/06/2024 02:28:12 PM Interpretation:rbc 3.64, hgb 11.3, hct 34.4, mcv 94.5 Performing Lab: Notes/Report: WBC 5.2 4.8-10.8 K/mm3 RBC 3.64 4.60-6.20 M/mm3 HGB 11.3 14.1-18.0 g/dL HCT 34.4 42.0-52.0 % MCV 94.5 80-94 fl MCH 31.0 27.0-31.2 pg MCHC 32.8 31.8-35.4 g/dL RDW-SD 47.8 RDW 13.6 11.5-17.5 % PLT 201 142-424 K/mm3 MPV 9.3 7.4-10.4 fl NE% 69.3 37.0-80.0 % LY% 18.4 10-50 % MO% 7.5 1.7-9.3 % EO% 4.2 0.1-12.0 % BA% 0.4 0.1-2.0 % NRBC% 0 NE# 3.6 1.8-7.8 K/mm3 LY# 1.0 0.7-4.5 K/mm3 MO# 0.4 0.1-1.0 K/mm3 EO# 0.2 0.0-0.4 K/mm3 BA# 0.0 0-0.2 K/mm3 NRBC# 0 H-BMP Reviewed date:08/06/2024 02:28:13 PM Interpretation:glu 109 Performing Lab: Notes/Report: NA 140 136-145 mmol/L K 3.8 3.5-5.1 mmoL/L CL 106 98-107 mmol/L CO2 23 22.0-30.0 mmol/L GAP 14.8 5-15 mEq/L BUN 12 9-20 mg/dl CREATT 1.00 0.66-1.25 mg/dl CRCLE 95 50-200 mL/min GFRAA 92 >60 ML/MIN EGFR 76 >60 ml/min GLU 109 74-100 mg/dl CA 8.8 8.4-10.2 mg/dl H-Vancomycin, Trough Reviewed date:08/06/2024 02:28:12 PM Interpretation:21.1 Performing Lab: Notes/Report: VANCT 21.1 5.0-10.0 ug/mL CRITICAL RESULT Results called and read back/verified to: TPEFER on 08/06/24 at 0344 By Jocelynn Grewal -[facility] Reviewed date:08/13/2024 04:52:03 PM Interpretation: Performing Lab: Notes/Report: NA 138 136-145 mmol/L K 4.2 3.5-5.1 mmoL/L CL 106 98-107 mmol/L CO2 24 22.0-30.0 mmol/L GAP 12.2 5-15 mEq/L BUN 19 9-20 mg/dl CREATT 0.90 0.66-1.25 mg/dl GFRAA 104 >60 ML/MIN EGFR 86 >60 ml/min GLU 163 74-100 mg/dl CA 9.1 8.4-10.2 mg/dl H-Vancomycin, Trough Reviewed date:08/13/2024 04:53:15 PM Interpretation: Performing Lab: Notes/Report: VANCT 11.2 5.0-10.0 ug/mL CBC Reviewed date:10/01/2024 11:07:32 AM Interpretation: Performing Lab: Notes/Report: hgb 13.5 hct 41.3 CBC Reviewed date:10/01/2024 11:07:32 AM Interpretation: Performing Lab: Notes/Report: hgb 13.5 hct 41.3 H-CBC Reviewed date:11/12/2024 04:30:14 PM Interpretation:rbc 4.13, hgb 12.4, hct 37.3 Performing Lab: Notes/Report: FAX RESULTS TO DR GARNER [phone] WBC 7.1 4.8-10.8 K/mm3 RBC 4.13 4.60-6.20 M/mm3 HGB 12.4 14.1-18.0 g/dL HCT 37.3 42.0-52.0 % MCV 90.3 80-94 fl MCH 30.0 27.0-31.2 pg MCHC 33.2 31.8-35.4 g/dL RDW-SD 43.7 RDW 13.2 11.5-17.5 % PLT 291 142-424 K/mm3 MPV 9.4 7.4-10.4 fl NE% 74.4 37.0-80.0 % LY% 16.5 10-50 % MO% 5.9 1.7-9.3 % EO% 2.1 0.1-12.0 % BA% 0.3 0.1-2.0 % NRBC% 0 IG% 0.8 NE# 5.3 1.8-7.8 K/mm3 LY# 1.2 0.7-4.5 K/mm3 MO# 0.4 0.1-1.0 K/mm3 EO# 0.2 0.0-0.4 Kmm3 BA# 0.0 0-0.2 K/mm3 NRBC# 0 IG# 0.06 CMP Reviewed date:2024 10:24:38 AM Interpretation: Performing Lab: Notes/Report: H-BMP Reviewed date:11/12/2024 04:30:14 PM Interpretation:GAP 16.2, BUN 27, Glu 172 Performing Lab: Notes/Report: FAX RESULTS TO DR GARNER [phone] NA 137 136-145 mmol/L K 4.2 3.5-5.1 mmoL/L CL 98 98-107 mmol/L CO2 27 22.0-30.0 mmol/L GAP 16.2 5-15 mEq/L BUN 27 9-20 mg/dl CREATT 1.10 0.66-1.25 mg/dl GFRAA 82 >60 ML/MIN EGFR 68 >60 ml/min GLU 172 74-100 mg/dl CA 9.0 8.4-10.2 mg/dl H-CRP Reviewed date:11/12/2024 04:30:14 PM Interpretation:7.9 Performing Lab: Notes/Report: FAX RESULTS TO DR GARNER [phone] CRP 7.9 0-4 mg/L H-Sed Rate Reviewed date:11/12/2024 04:30:14 PM Interpretation:49 Performing Lab: Notes/Report: FAX RESULTS TO DR GARNER [phone] ESR 49 0-20 mm/hr H-Creatine Kinase Reviewed date:11/12/2024 04:30:14 PM Interpretation:44 Performing Lab: Notes/Report: FAX RESULTS TO DR GARNER [phone] CK 44 55-170 U/L CMP Reviewed date:11/08/2024 11:24:07 AM Interpretation: Performing Lab: Notes/Report: Medications Medication SIG (Take, Route, Frequency, Duration) Notes Start Date End Date Status Docusate Sodium 100 MG 1 capsule as need ed Orally twice a day Active Metoprolol Succinate ER 25 MG 1/2 tablet Orally Once a day Active GLUCOMETER DIRECTED 07/07/2020 Not-Ta max Verquvo 10 MG 1 tab(s) orally once a day; Duration: 90 days Not-Takin g DAPTOmycin 350 MG as directed Intravenous Active Aspirin 81 MG 1 tab(s) orally once a day Active Accu-Chek Danielle Plus 1 STRIP ONCE DAILY 07/07/2020 Not-Taking Plavix 75 MG 1 tablet Orally Once a day Active Glimepiride 4 MG 1/2 tablet Orally On ce a day Active metFORMIN HCl 500 MG 1 tab(s) orally 2 t imes a day Active Allopurinol 300 MG 1 tab(s) orally once a day; Duration: 90 days Active Acetaminophen 500 MG 2 capsule as needed Orally q6h prn Active Omeprazole 40 MG 1 capsule 30 minutes before morning meal Orally Once a day; Duration: 90 days Active Steglatro 5 MG 1 tab(s) orally once a day (in the morning) Active Rosuvastatin Calcium 40 MG 1 tablet Orally Once a day; Duration: 90 days Active Eliquis 5 MG as directed Orally Active Immunizations Vaccine Route Administration Date Status Comme nts COVID 19 Moderna Unknown 04/24/2021 Administered COVID 19 Moderna Unknown 05/24/2021 Administered Hepatitis A (adult) Unknown 05/03/2018 Administered Hepatitis A (adult) Unknown 10/31/2018 Administered xFlu shot-36 months and older IM Intramuscular 03/30/2010 Administered Problems Problem Type SNOMED Code ICD Code Onset Dates Problem Status W/U Status Risk Notes Problem Gastroesophageal reflux disease (276121425) GERD (gastroesophageal reflux disease) (K21.9) Active confirmed Problem Essential hypertension (32900009) Essential (primary) hypertension (I10) Active confirmed Problem Atrial fibrillation (82127311) A-fib (I48.91) Active confirmed Problem Diabetic foot ulcer (055199870) Diabetic foot ulcer (E11.621) Active confirmed Problem Hyperglycemia (09251016) Hyperglycemia (R73.9) Active confirmed Problem Hypertension (68118386) HTN (hypertension) (I10) Active confirmed Problem Gout (33931386) Gout (M10.9) Active confirmed Problem Hypercalcemia (29626510) Hypercalcemia (E83.52) Active confirmed Problem Hypertriglyceridemia (897953125) Hypertriglyceridemia (E78.1) Active confirmed Problem Constipation (00658564) Constipation (K59.00) Active confirmed Problem Diabetes mellitus with neuropathy (363761242) Diabetes mellitus with neuropathy (E11.40) Active confirmed Problem Osteomyelitis of lef t foot (8579335736112020) Osteomyelitis of left foot (M86.9) Active confirmed Problem Foot ulcer due to type 2 diabetes mellitus (2128285961557) Type 2 diabetes mellitus with foot ulcer (E11.621) Active confirmed Problem Mixed hyperlipidemia (524661612) Mixed hyperlipidemia (E78.2) Active confirmed Problem Ischemic cardiomyopathy (047508885) Ischemic cardiomyopathy (I25.5) Active confirmed Problem Chronic ulcer of right foot (disorder) (49270491540887550) Non-pressure chronic ulcer of other part of right foot with unspecified severity (L97.519) Active confirmed Problem Ulcer of left foot (disorder) (174145676) Non-pressure chronic ulcer of other part of left foot with unspecified severity (L97.529) Active confirmed Problem Generalized osteoarthritis (568978239) Generalized osteoarthritis (M15.9) Active confirmed Problem Type II diabetes mellitus without complication (272755754) Type 2 diabetes mellitus without complication (E11.9) Active confirmed Problem Osteoarthritis of knee (619970408) Primary osteoarthritis of right knee (M17.11) Active confirmed Problem Hyperlipidaemia (59151005) Hyperlipidemia, unspecified hyperlipidemia type (E78.5) Active confirmed Problem STEMI - ST elevation myocardial infarction (562952161) ST elevation myocardial infarction (STEMI), unspecified artery (I21.3) Active confirmed Problem Hypersomnia (78245150) Hypersomnia (G47.10) Active confirmed Problem Peripheral vascular disease (515508077) PAD (peripheral artery disease) (I73.9) Active confirmed Problem Atherosclerotic hear t disease of [place] coronary artery without angina pectoris (219915793013807) Atherosclerosis of [place] coronary artery without angina pectoris, unspecified whether [place] or transplanted heart (I25.10) Active confirmed Problem Osteoarthritis (240620609) Osteoarthritis, unspecified osteoarthritis type, unspecified site (M19.90) Active confirmed Problem Neuropathy due to type 2 diabetes mellitus (146327521210839) Neuropathy due to type 2 diabetes mellitus (E11.40) Active confirmed Problem Diabetic foot (260151838) Diabetic foot (E11.8) Active confirmed Problem Obesity (812555612) Non morbid o besity (E66.9) Active confirmed Problem History of placement of stent for coronary artery disease (situation) (132036622) S/P coronary artery stent placement (Z95.5) Active confirmed Problem Type II diabetes mellitus without complication (939821137) Type 2 diabetes mellitus without complication, unspecified whether plumber pipe fitting insulin use (E11.9) Active confirmed Problem Heart failure (24345553) Congestive heart failure, unspecified HF chronicity, unspecified heart failure type (I50.9) Active confirmed Problem Amputated big toe (747679386) Status post amputation of left great toe (Z89.412) Active confirmed Problem Heart disease (06253380) LV dysfunction (I51.9) Active confirmed Problem Skin sensation disturbance (41349086) Tingling of both feet (R20.2) Active confirmed Problem History of amputatio n of left great toe (55028761130097543) History of amputation of left great toe (Z89.412) Active confirmed Problem History of amputatio n of great toe (650624373) History of amputation of great toe (Z89.419) Active confirmed Vital Signs Heart Rate 92 /min 10/02/2024 Respiratory Rate 20 /min 10/02/2024 Blood pressure diastolic 82 mm Hg 10/02/2024 Height 70 in 07/18/2024 Blood pressure systolic 136 mm Hg 10/02/2024 Weight 196.2 lbs 10/02/2024 BMI 27.12 kg/m2 07/18/2024 Encounters Encounter Location Date Provider Diagnosis [facility] [address] [place] [id number] 11/12/2024 Willy Waterville [facility] [address] [facility] [address] [place], [place] [id number] 11/29/2023 Willy Waterville [facility] [address] [place], [place] [id number] 01/02/2024 Willy Waterville [facility] [address] [place], [place] [id number] 06/29/2024 Willy Wat[place] [facility] [address] [place], [place] [id number] 08/06/2024 Willy Waterville [facility] [address] [place] [id number] 08/07/2024 Vane Cameron [facility] [address] [place] [id number] 08/14/2024 Willy Waterville [facility] [address] [place], [place] [id number] 08/21/2024 Willy Waterville [facility] [address] [place] [id number] 08/31/2024 Willy Waterville [facility] [address] [place], [place] [id number] 09/03/2024 Willy Waterville Gout M10.9 ; HTN (hypertension) I10 ; Atherosclerosis of [place] coronary artery without angina pectoris, unspecified whether [place] or transplanted heart I25.10 ; Type 2 diabetes mellitus without complication E11.9 ; Status post amputation of left great toe Z89.412 ; GERD (gastroesophageal reflux disease) K21.9 ; Mixed hyperlipidemia E78.2 and Congestive heart failure, unspecified HF chronicity, unspecified heart failure type I50.9 [facility] [address] [place], [place] [id number] 09/18/2024 Willy Waterville [facility] [address] [place] [id number] 09/21/2024 Willy Wat[place] [facility] [address] [place] [id number] 09/25/2024 Willy Wat[place] [facility] [address] [place] [id number] 10/01/2024 Willy Wat[place] [facility] [address] [facility] [address] [place], [place] [id number] 10/15/2024 Willy [place] [facility] [address] [facility] [address] [place], [place] [id number] 2024 Willy Waterville [facility] [address] [facility] [address] [place], [place] [id number] 11/08/2024 Willy Waterville [address] [place], [place] [id number] 08/07/2024 Vane Cameron Type 2 diabetes mellitus without complication E11.9 ; Mixed hyperlipidemia E78.2 [...] Z89.412 ; Gout M10.9 ; Atherosclerosis of [place] coronary artery without angina pectoris, unspecified whether [place] or transplanted heart I25.10 ; S/P coronary artery stent placement Z95.5 and GERD (gastroesophageal reflux disease) K21.[address] [place], [place] [id number] 10/02/2024 Vane Cameron Non-pressure chronic ulcer of other part of left foot with unspecified severity L97.529 ; Cellulitis of left foot L03.116 ; Non-pressure chronic ulcer of other part of right foot with unspecified severity L97.519 ; History of amputation of great toe Z89.419 ; Type 2 diabetes mellitus without complication E11.9 ; Atherosclerosis of [place] coronary artery without angina pectoris, unspecified whether [place] or transplanted heart I25.10 ; Congestive heart failure, unspecified HF chronicity, unspecified heart failure type I50.9 ; Gout M10.9 ; GERD (gastroesophageal reflux disease) K21.9 ; Mixed hyperlipidemia E78.2 ; PAD (peripheral artery disease) I73.9 ; S/P coronary artery stent placement Z95.5 ; 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 [address] [place] [id number] 12/28/2023 Willy Waterville Type 2 diabetes arjun itus without complication E11.9 ; HTN (hypertension) I10 ; Mixed hyperlipidemia E78.2 ; Hypertriglyceridemia E78.1 ; Gout M10.9 ; Congestive heart failure, unspecified HF chronicity, unspecified heart failure type I50.9 ; Hypercalcemia E83.52 ; Prostate cancer screening Z12.5 and PAD (peripheral artery disease) I73.9 [facility] [facility] [address] HAZEL Smith [id number] 02/02/2024 [place]ly [place] Nausea and vomiting, unspecified vomiting type R11.2 and Dog bite, initial [facility]54.0XXA [facility] [address] HAZEL Smith [id number] 02/17/2024 Willy [place] Atherosclerosis of n ative coronary artery without angina pectoris, unspecified whether [place] or transplanted heart I25.10 and S/P coronary artery stent placement [facility]95.5 [facility] [address] [place] [address] HAZEL Smith [id number] 06/27/2024 Willy [place] Type 2 diabetes arjun itus without complication E11.9 ; Mixed hyperlipidemia E78.2 ; Hypertriglyceridemia E78.1 ; HTN (hypertension) I10 ; Congestive heart failure, unspecified HF chronicity, unspecified heart failure type I50.9 and PAD (peripheral artery disease) I73.9 [facility] [address] HAZEL Smith [id number] 07/18/2024 Willy [place] Open wound of foot, unspecified laterality, subsequent encounter S91.309D and Medical non-compliance Z91.199 Assessments Encounter Date Diagnosis (ICD Code) Assessment Notes Treatment Notes Treatment Clinical Notes Section Notes 12/28/2023 HTN (hypertension) (ICD-10 - I10) 02/02/2024 Dog bite, initial encounter (ICD-10 - W54.0XXA) wound cleaned, dressing applied, wound care discussed with patient 02/02/2024 Nausea and vomiting, unspecified vomiting type (ICD-10 - R11.2) Improved 02/17/2024 Atherosclerosis of [place] coronary artery without angina pectoris, unspecified whether [place] or transplanted heart (ICD-10 - I25.10) Continue current treatment 02/17/2024 S/P coronary artery stent placement (ICD-10 - Z95.5) Keep follow up appointment with cardiology at [facility] in 3 days 12/28/2023 Type 2 diabetes mellitus without complication (ICD-10 - E11.9) 06/27/2024 Mixed hyperlipidemia (ICD-10 - E78.2) 06/27/2024 Type 2 diabetes mellitus without complication (ICD-10 - E11.9) 07/18/2024 Medical non-complian ce (ICD-10 - Z91.199) 07/18/2024 Open wound of foot, unspecified laterality, subsequent encounter (ICD-10 - S91.309D) Patient to keep going to weekly wound clinic visits at [facility] 08/07/2024 Mixed hyperlipidemia (ICD-10 - E78.2) 08/07/2024 Type 2 diabetes mellitus without complication (ICD-10 - E11.9) continue with FSBS AC and HS 09/03/2024 Gout (ICD-10 - M10.9) 10/02/2024 Non-pressure chronic ulcer of other part of left foot with unspecified severity (ICD-10 - L97.529) 10/02/2024 Cellulitis of left f oot (ICD-10 - L03.116) 10/02/2024 Non-pressure chronic ulcer of other part of right foot with unspecified severity (ICD-10 - L97.519) 09/03/2024 HTN (hypertension) (ICD-10 - I10) 08/07/2024 Hypertriglyceridemia (ICD-10 - E78.1) 06/27/2024 Hypertriglyceridemia (ICD-10 - E78.1) 12/28/2023 Mixed hyperlipidemia (ICD-10 - E78.2) 12/28/2023 Hypertriglyceridemia (ICD-10 - E78.1) 06/27/2024 HTN (hypertension) (ICD-10 - I10) 08/07/2024 HTN (hypertension) (ICD-10 - I10) 09/03/2024 Atherosclerosis of [place] coronary artery without angina pectoris, unspecified whether [place] or transplanted heart (ICD-10 - I25.10) 10/02/2024 History of amputatio n of great toe (ICD-10 - Z89.419) He will continue to follow with podiatryfor postop care of the left ft and wound on the right foot 09/03/2024 Type 2 diabetes mellitus without complication (ICD-10 - E11.9) 10/02/2024 Type 2 diabetes mellitus without complication (ICD-10 - E11.9) 06/27/2024 Congestive heart failure, unspecified HF chronicity, unspecified heart failure type (ICD-10 - I50.9) 08/07/2024 Congestive heart failure, unspecified HF chronicity, unspecified heart failure type (ICD-10 - I50.9) 12/28/2023 Gout (ICD-10 - M10.9) 12/28/2023 Congestive heart failure, unspecified HF chronicity, unspecified heart failure type (ICD-10 - I50.9) 08/07/2024 PAD (peripheral noé ry disease) (ICD-10 - I73.9) 06/27/2024 PAD (peripheral noé ry disease) (ICD-10 - I73.9) 09/03/2024 Status post amputati on of left great toe (ICD-10 - Z89.412) 10/02/2024 Atherosclerosis of [place] coronary artery without angina pectoris, unspecified whether [place] or transplanted heart (ICD-10 - I25.10) 10/02/2024 Congestive heart failure, unspecified HF chronicity, unspecified heart failure type (ICD-10 - I50.9) 08/07/2024 Osteomyelitis of lef t foot (ICD-10 - M86.9) 09/03/2024 GERD (gastroesophage al reflux disease) (ICD-10 - K21.9) 12/28/2023 Hypercalcemia (ICD-1 0 - E83.52) 12/28/2023 Prostate cancer screening (ICD-10 - Z12.5) 09/03/2024 Mixed hyperlipidemia (ICD-10 - E78.2) 10/02/2024 Gout (ICD-10 - M10.9) 08/07/2024 Cellulitis of left f oot (ICD-10 - L03.116) 08/07/2024 Diabetic foot ulcer (ICD-10 - E11.621) 10/02/2024 GERD (gastroesophage al reflux disease) (ICD-10 - K21.9) 09/03/2024 Congestive heart failure, unspecified HF chronicity, unspecified heart failure type (ICD-10 - I50.9) 12/28/2023 PAD (peripheral noé ry disease) (ICD-10 - I73.9) 10/02/2024 Mixed hyperlipidemia (ICD-10 - E78.2) 08/07/2024 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) 08/07/2024 H/O hand surgery (ICD-10 - Z98.890) 10/02/2024 PAD (peripheral noé ry disease) (ICD-10 - I73.9) 10/02/2024 S/P coronary artery stent placement (ICD-10 - Z95.5) 08/07/2024 Status post amputati on of left great toe (ICD-10 - Z89.412) wpund care appt 08/13/2024; Podiatry appt 08/15/2024; continue with daily wound care; continue with Prostat 30 ml qd x 1 month; has picc line with routine care 10/02/2024 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 Discharge medication list reconciled. Appropriate counseling provided. Moderate Complexity 10/02/2024 Other PICC line with rt care [facility] diet Plan Of Treatment Next Appt Details Provider Name:Willy Vinson ry, 12/28/2024 09:30:00 AM, [address], [address], [place], [place], [id number], Insurance Providers Payer Name Payer Address Payer Phone Subscriber Number Group Number Insured Name Patient Relationship to Insured Coverage Start Date Coverage End Date [facility] [id number] [place] [id number] [phone] [id number] LUPE SANTIZO Self - patient is the insured Medications Administered Medication Instructions Date of Administration Dosage Notes Depo- Medrol 40 mg/ml 02/27/2007 1.5 mL Depo- Medrol 40 mg/ml 03/06/2007 1.5 mL Dexamethasone 01/31/2007 1 mL Dexamethasone 03/10/2009 1 mL Medical (General) History Medical History History ICD Code Type 2 Diabetes Hypertension Hypercholestrolemia Hypertriglyceridemia Gout Non compliance Coronary Artery Disease Heart Attack, STEMI, Apr 2022, treated a t [facility] Congestive Heart Failure, Dx: 2022 peripheral vascular disease cellulitis of lower legs Surgical History Surgery Date(Month/Year) Tonsillectomy Percutaneous coronary intervention 05/14 22 Heart Cath, 6 Stents Placed 02/08/2024 Right hallux and lateral ank le diabetic foot ulcer(DFU) wound debridement; left 5th toe DFU wound debridement/irrigation and Hallux amputation 08/01/2024 Surgery, 09/20/24: Left 5th t oe amputation, Left 3rd toe wound debridement, Right hallux wound debridement Intraop Specimens: Left fifth toe bone culture: Staphylococcus aureus (MRSA), Enterococcus faecalis Left fifth toe bone path: Acute osteomyelitis, cellulitis and adjacent soft tissue, no tumor seen. Left toe path: Cutaneous ulceration and cellulitis with underlying acute osteomyelitis. Cellulitis and ulceration extends to the soft tissue and skin margin Hospitalization History Reason Date(Month/Year) [facility] with sepsis and amputation of 5th di git on the left foot 09/17-09/21/2024 [facility] with foot surgery -amput ation of the 5th hallux and wound debridementto right and left foot 08/01-08/06/2024 Rt Foot Pain- [facility] ER 01/15/2007 Kidney Failure- [facility] 11/2017 Fall- [facility] ER 06/2015 Dog Bite- [facility] ER 08/17/2011
== END 2024-11-13 23:59 | disposition home or self-care (01) ==
LOC: LAB.DROPOF 11-14 11:54
PROVIDERS: PCP Podiatrist; Visit Provider Podiatrist
DX: S91.101A Unspecified open wound of right great toe without damage to nail, initial encounter (principal)
CPT/HCPCS: 87070; 87205

== ENCOUNTER 2024-12-04 14:58 | Outpatient (CLI) | payer OTHER, SELFPAY ==
--- NOTE | 2024-12-04 15:01 | XR_ITS ---
FINAL REPORT CLINICAL HISTORY: evaluate left 3rd toe fracture vs Osteomyelitis COMPARISON: 09/20/2024 FINDINGS: Three views of the left foot show no evidence of acute displaced fracture or dislocation of the visualized bony architecture. Status post amputation of the 1st and 5th digits at the level of the MTP joints. No definite bony destruction. There are moderate degenerative changes of the midfoot with possible underlying neuropathic disease. IMPRESSION: Chronic changes as above, similar to the prior study. Reviewed, Interpreted and Dictated by Blessing Lundy MD Transcribed by Isaura Billy Authenticated and [facility]
--- OUTSIDE RECORDS SUMMARY | 2024-12-04 15:01 | XMS_ITS | Clinical Summary ---
Author Organization [facility] Address [address] [place] [address] Care Team Providers Care Mail Sorter And Delivery Name Role Phone Willy Grissom MD Primary Care Provider + [phone] Allergies No known active allergies Medications amLODIPine [...] care clinic for chronic lower extremity wounds. [facility] wound care clinic Tuesday, 05/25 at 8am. They can assist with pulido bite wound monitoring, though will also follow up with [facility] as listed below. Plastic Surgery: Follow up with Dr. Mccarthy on 06/08 @10:00 AM for re-evaluation of bilateral feet/pulido bite wounds. [facility] [address] [place] [address] #[phone] HTN (hypertension) 05/18/2024 Overview (05/18/2024): Resume home [...] any time in the past 12 m [facility], were you homeless or living in a fci (including now)? No 05/18/2024 Utilities Answer Date Recorded In the past 12 months has th e [employer], gas, oil, or water company threatened to [...] 11/02/2007 [facility]-Zoster Vaccines (1 of 2) 2012 [id number] Vaccine ( season) 2023 05/24/2021, 04/24/2021 [facility]- [...] Reactive Non Reactive 05/17/2024 8:38 PM EST [facility] Comment:Screening for HIV 1 & 2 antibodies, and P24 antigen is NONREACTIVE. No confirmatory testing is required. Blood Venous blood specimen / Unknown Venipuncture / Unknown 05/17/2024 6:41 PM EST 05/17/2024 6:54 PM EST Maurilio Chatman MD LAB BLOOD ORDERABLES Final Result [facility] [address] [place] [address] * Hepatitis C Antibody - ED (05/17/2024 6:41 PM EST) Hepatitis C Antibody Negative Negative 05/17/2024 7:34 PM EST [facility] Blood Venous blood specimen / Unknown Venipuncture / Unknown 05/17/2024 6:41 PM EST 05/17/2024 6:54 PM EST Maurilio Chatman MD LAB BLOOD ORDERABLES Final Result Performing Organization Address City/[facility] Co de Phone Number [facility] [address] [place] [address] from Last 3 Months or Most Recently Relevant to Health Maintenance [facility] Advance Directives * Full Code (Latest Code Status on File) Date Activated Date Inactivated Comments 05/18/2024 3:17 AM 05/23/2024 7:36 PM Question Answer Comments Patient has decision-making capacity? Yes Care Teams Mail Sorter And Delivery Relationship Specialty Start Date End Date Willy Grissom MD [address] [facility] [address] [place] [address] PCP - General 05/17/24
[2024-12-04 15:59] LABS: Hematocrit 44.3 % (42.0-52.0); Hemoglobin 14.1 g/dL (14.1-18.0); Immature Granulocytes % 0.2 %; Mean Corpuscular HGB Conc 31.8 g/dL (31.8-35.4); Mean Corpuscular Hemoglobin 29.0 pg (27.0-31.2); Mean Corpuscular Volume 91.0 fl (80-94); Nucleated Red Blood Cells % 0 %; Platelet Count 239 K/mm3 (142-424); Red Blood Count 4.87 M/mm3 (4.60-6.20); Red Cell Distribution Width-SD 48.6 fL; White Blood Count 8.5 K/mm3 (4.8-10.8)
[2024-12-04 17:57] LABS: Hemoglobin A1C 7.2 % (4.0-6.0)
[2024-12-04 19:45] LABS: Albumin Level 4.5 g/dl (3.5-5.0); Chloride 103 mmol/L (98-107); Sodium 141 mmol/L (136-145)
[2024-12-04 19:46] LABS: Potassium 4.2 mmoL/L (3.5-5.1)
[2024-12-04 19:48] LABS: Alanine Aminotransferase 11 U/L (12-78); Albumin/Globulin Ratio 1.9 (1.1-1.8); Alkaline Phosphatase 121 U/L (38-126); Anion Gap 16.2 mEq/L (5-15); Aspartate Amino Transferase 20 U/L (17-59); Bilirubin,Total 0.6 mg/dl (0.2-1.3); Blood Urea Nitrogen 26 mg/dl (9-20); Carbon Dioxide 26 mmol/L (22.0-30.0); Creatinine,Serum 1.40 mg/dl (0.66-1.25); Estimated Glomerular Filt Rate 51 ml/min (>60); GFR (African American) 62 ML/MIN (>60); Globulin 2.4 g/dL (1.3-3.2); Total Protein,Serum 6.9 g/dl (6.3-8.2)
[2024-12-04 19:49] LABS: Calcium 9.6 mg/dl (8.4-10.2); Glucose 97 mg/dl (74-100)
[2024-12-04 19:54] LABS: C-Reactive Protein 8.6 mg/L (0-4)
== END 2024-12-04 23:59 | disposition home or self-care (01) ==
LOC: LAB 15:00
PROVIDERS: PCP Family Medicine; Visit Provider Podiatrist
DX: M19.072 Primary osteoarthritis, left ankle and foot (principal); E11.40 Type 2 diabetes mellitus with diabetic neuropathy, unspecified; E11.621 Type 2 diabetes mellitus with foot ulcer; L97.519 Non-pressure chronic ulcer of other part of right foot with unspecified severity; L03.032 Cellulitis of left toe; L60.0 Ingrowing nail; Z89.411 Acquired absence of right great toe; Z89.422 Acquired absence of other left toe(s)
CPT/HCPCS: 36415; 73630; 80053; 83036; 85025; 85651; 86140; 87070; 87077; 87205